=== PATIENT | male | born 1950 | race Two or more races ===

== ENCOUNTER → 2024-08-30 | Outpatient (CLI) | payer OTHER, SELFPAY | END | disposition home or self-care (01) | LOC: SWHD 09:33 | PROVIDERS: PCP Internal Medicine; Referring Provider Internal Medicine; Visit Provider Surgery | DX: T23.221A Burn of second degree of single right finger (nail) except thumb, initial encounter (principal); R60.0 Localized edema; E11.9 Type 2 diabetes mellitus without complications; Z79.84 Long term (current) use of oral hypoglycemic drugs | CPT/HCPCS: 99213; A9270; G0463 ==

== ENCOUNTER → 2024-11-16 | Outpatient (CLI) | payer OTHER, SELFPAY ==
[2024-11-16 11:40] LABS: Basophils % (Auto) 1 % (0-2.5); Eosinophils # (Auto) 0.2 Thou/mm3 (0.0-0.5); Eosinophils % (Auto) 2 % (0-10); Hematocrit 46.6 % (41.0-53.0); Hemoglobin 14.8 g/dL (13.5-16.0); Immature Granulocytes % (Auto) 0 % (0-0); Immature Granulocytes Auto 0.02 Thou/mm3 (0.00-0.00); Lymphocytes # (Auto) 1.7 Thou/mm3 (1.0-4.8); Lymphocytes % (Auto) 20 % (10-50); Mean Corpuscular HGB Conc 31.8 g/dl (31.0-37.0); Mean Corpuscular Hemoglobin 27.7 pg (25.0-35.0); Mean Corpuscular Volume 87 fL (80-100); Monocytes # (Auto) 0.7 Thou/mm3 (0.0-0.8); Monocytes % (Auto) 8 % (0-12); Neutrophils # (Auto) 5.8 Thou/mm3 (1.8-7.7); Neutrophils % (Auto) 69 % (37-80); Nucleated Red Blood Cell % 0 /100 WBC (0); Platelet Count 199 Thou/mm3 (140-440); RDW Standard Deviation 47.2 fL (35.1-43.9); Red Blood Count 5.35 Miln/mm3 (4.50-5.90); White Blood Count 8.4 Thou/mm3 (3.8-10.6)
[2024-11-16 11:47] LABS: Glucose Estimated Average 148 mg/dL (80-131); Hemoglobin A1C 6.8 % Hgb (4.8-6.0)
[2024-11-16 11:50] LABS: B-Type Natriuretic Peptide 192 pg/mL (0-100)
[2024-11-16 11:56] LABS: Vitamin D 25 Hydroxy Total 38.7 ng/mL (7.3-40.2)
[2024-11-16 11:58] LABS: Alanine Aminotransferase 11 U/L (10-49); Albumin, Serum 4.1 gm/dL (3.4-4.8); Albumin/Globulin Ratio 1.5 (1.2-2.2); Alkaline Phosphatase 93 U/L (46-116); Anion Gap 9 (7-16); Aspartate Amino Transferase 15 U/L (0-34); BUN/Creatinine Ratio 24 Ratio (12-20); Bilirubin,Total 2.7 mg/dL (0.3-1.2); Blood Urea Nitrogen 19 mg/dL (9-23); Calcium 9.5 mg/dL (8.3-10.6); Calcium (Corrected) 9.5 mg/dL (8.5-10.1); Chloride 98 mMol/L (98-107); Cholesterol 87 mg/dL (132-200); Creatinine (Component) 0.8 mg/dL (0.6-1.3); Free T4 (Free Thyroxine) 1.27 ng/dL (0.89-1.76); Globulin 2.7 gm/dL (2.3-3.5); Glucose 111 mg/dL (74-106); HDL Cholesterol 29 mg/dL (40-60); LDL Cholesterol,Calculated 46 mg/dL (0-130); Osmolality,Calculated 284 (275-295); Potassium 4.3 mMol/L (3.4-5.1); Sodium 141 mMol/L (136-145); Thyroid Stimulating Hormone 3.92 uIU/mL (0.55-4.78); Total Protein 6.8 gm/dL (5.7-8.2); Triglycerides 59 mg/dL (30-150); eGFR > 60 See Note
== END | disposition home or self-care (01) ==
LOC: COPL 10:09
PROVIDERS: PCP Internal Medicine; Referring Provider Internal Medicine; Visit Provider Internal Medicine
DX: Z00.00 Encounter for general adult medical examination without abnormal findings (principal); E11.9 Type 2 diabetes mellitus without complications; E55.9 Vitamin D deficiency, unspecified; E78.2 Mixed hyperlipidemia; E03.9 Hypothyroidism, unspecified
CPT/HCPCS: 36415; 80053; 80061; 82306; 83036; 83880; 84439; 84443; 85025

== ENCOUNTER 2025-01-22 17:40 | Emergency (ER) | payer OTHER, SELFPAY ==
[2025-01-22 17:42] VITALS: BMI 36.3
--- NOTE | 2025-01-22 19:02 | PD.EDRME ---
Rapid Medical Screening Exam RME Arrival date/time: 01/22/25 17:40 Chief Complaint: Skin/Abscess/Foreign Body Time Seen by Provider: 01/22/25 18:47 Vital signs: Vital Signs Temperature 98.3 F 01/22/25 19:04 Pulse Rate 83 01/22/25 19:04 Respiratory Rate 18 01/22/25 19:04 Blood Pressure 170/82 H 01/22/25 19:04 Pulse Oximetry (%) 96 01/22/25 19:04 Oxygen Delivery Method Room Air 01/22/25 19:04 RME Narrative: LLE pain, redness, swelling x2 days. No injury or open wound.
[2025-01-22 19:04] VITALS: BP 170/82; PULSE 83; RESP 18; TEMP 36.8; O2SAT 96
--- NOTE | 2025-01-22 19:23 | XR_ITS ---
Examination: Venous duplex lower extremity sonogram, bilateral. Date and time of exam: January 22, 2025 1938 hours INDICATIONS: Bilateral leg swelling beginning 3 days ago with left leg redness Technique: Multiple sonographic images of the deep venous system have been obtained. B-mode/2-D grayscale imaging of vascular structures and Doppler spectral analysis (waveforms) and color performed Both legs are examined. Findings: Deep venous systems do not demonstrate abnormal echogenicity. All visualized deep veins exhibit compressibility. All visualized deep veins exhibit augmentation. Impression: Negative for deep vein thrombosis
[2025-01-22 19:28] LABS: Basophils % (Auto) 0 % (0-2.5); Eosinophils # (Auto) 0.2 Thou/mm3 (0.0-0.5); Eosinophils % (Auto) 3 % (0-10); Hematocrit 43.9 % (41.0-53.0); Hemoglobin 13.9 g/dL (13.5-16.0); Immature Granulocytes % (Auto) 0 % (0-0); Immature Granulocytes Auto 0.02 Thou/mm3 (0.00-0.00); Lymphocytes # (Auto) 1.2 Thou/mm3 (1.0-4.8); Lymphocytes % (Auto) 16 % (10-50); Mean Corpuscular HGB Conc 31.7 g/dl (31.0-37.0); Mean Corpuscular Hemoglobin 28.5 pg (25.0-35.0); Mean Corpuscular Volume 90 fL (80-100); Monocytes # (Auto) 0.6 Thou/mm3 (0.0-0.8); Monocytes % (Auto) 9 % (0-12); Neutrophils # (Auto) 5.2 Thou/mm3 (1.8-7.7); Neutrophils % (Auto) 72 % (37-80); Nucleated Red Blood Cell % 0 /100 WBC (0); Platelet Count 165 Thou/mm3 (140-440); RDW Standard Deviation 48.6 fL (35.1-43.9); Red Blood Count 4.87 Miln/mm3 (4.50-5.90); White Blood Count 7.3 Thou/mm3 (3.8-10.6)
[2025-01-22 19:41] LABS: Sed Rate (ESR) 22 mm/hr (0-20)
[2025-01-22 20:03] LABS: INR 1.1 (0.9-1.3); Partial Thromboplastin Time 29.7 Seconds (22.0-36.0); Prothrombin Time 12.4 Seconds (9.0-12.2)
[2025-01-22 20:29] LABS: Albumin, Serum 4.3 gm/dL (3.4-4.8); Albumin/Globulin Ratio 1.5 (1.2-2.2); Alkaline Phosphatase 103 U/L (46-116); Anion Gap 7 (7-16); Aspartate Amino Transferase 12 U/L (0-34); BUN/Creatinine Ratio 21 Ratio (12-20); Blood Urea Nitrogen 19 mg/dL (9-23); C-Reactive Protein 1.2 mg/dL (0.0-0.9); Calcium 9.1 mg/dL (8.3-10.6); Calcium (Corrected) 9.1 mg/dL (8.5-10.1); Carbon Dioxide 32.4 mMol/L (20.0-31.0); Chloride 105 mMol/L (98-107); Creatinine (Component) 0.9 mg/dL (0.6-1.3); Estimated Creatinine Clearance 87.3 mL/min (>60); Globulin 2.8 gm/dL (2.3-3.5); Glucose 165 mg/dL (74-106); Osmolality,Calculated 293 (275-295); Potassium 3.9 mMol/L (3.4-5.1); Sodium 144 mMol/L (136-145); Total Protein 7.1 gm/dL (5.7-8.2); eGFR > 60 See Note
[2025-01-22 20:39] LABS: Alanine Aminotransferase < 7 U/L (10-49)
[2025-01-22 21:42] VITALS: BP 173/108; PULSE 75; RESP 20; TEMP 36.9; O2SAT 93
--- NOTE | 2025-01-22 21:53 | PD.EDSKIN ---
ED Skin Abcess FB-RME/HPI General Chief complaint: Skin/Abscess/Foreign Body Stated complaint: LLE SWELLING WITH REDNESS Time Seen by Provider: 01/22/25 18:47 Arrival date/time: 01/22/25 17:40 RME / HPI RME / HPI narrative: LLE pain, redness, swelling x2 days. No injury or open wound. ------- Dr. Aranda's Main ED Evaluation: 74yo male with a history of DM, HTN, aFib presents to the ED for a chief complaint of LLE pain, redness, and swelling x 2 days. Patient states he was walking up a platform when he felt a sharp pain to the back of his left calf. Denies any trauma or injuries. Patient states he has since developed his LLE symptoms and they have persisted, so he came in for evaluation. Patient denies any fever, chills, N/V, chest pain, shortness of breath or any other associated symptoms. No known allergies. Related Data Home Medications ?Medication ?Instructions ?Recorded ?Confirmed amlodipine 5 mg tablet 5 mg PO BID 03/09/23 10/01/23 apixaban 2.5 mg tablet (Eliquis) 2.5 mg PO DAILY 03/09/23 10/01/23 losartan 50 mg-hydrochlorothiazide 1 tab PO DAILY 03/09/23 10/01/23 12.5 mg tablet metformin 500 mg tablet 500 mg PO DAILY 03/09/23 10/01/23 metoprolol tartrate 100 mg tablet 200 mg PO BID 03/09/23 10/01/23 aspirin 81 mg tablet,delayed 81 mg PO QDAY 08/17/23 10/01/23 release potassium chloride 8 mEq 8 meq PO QDAY 08/17/23 10/01/23 capsule,extended release Previous Rx's ?Medication ?Instructions ?Recorded atorvastatin 40 mg tablet 40 mg PO HS #30 tabs 03/17/23 Allergies Allergy/AdvReac Type Severity Reaction Status Date / Time No Known Allergies Allergy Verified 10/01/23 10:20 Review of Systems Review of Systems Systems Reviewed: All systems reviewed, normal except as documented Past Medical History Past Medical History CARDIAC: Positive Atrial Fibrillation and Hypertension; Negative Cardiac Disorders or Congestive Heart Failure RESPIRATORY: Negative Chronic Obstructive Pulmonary Disease (COPD) or Asthma GENITOURINARY: Negative Renal Disease ENDOCRINE: Positive Diabetes Mellitus Type 2; Negative Diabetes Mellitus Type 1 HEMATOLOGIC: Negative Sickle Cell Disease Social History SMOKING STATUS: Never smoker SUBSTANCE USE: does not use ED Exam Narrative Physical exam: General: Non-toxic, well appearing, in no acute distress, and appears stated age and well developed and well nourished. Vital signs: Normal. Head: Normocephalic and atraumatic. Eyes: Aproptotic, extraocular movements intact. Nose: Nares without evidence of rhinorrhea. Neck: Supple without menigismus without lympadenopathy. Heart: Regular rate and rhythm without murmur, gallops, or rubs. Lungs: Clear to auscultation without wheezing, rales, or rhonchi. Abdomen: Soft, non distended. No tenderness. Normal bowel sounds. Negative Christy sign and no McBurney?s point tenderness. No guarding, rebound, or rovsing. Back: No costovertebral angle tenderness. Neurological: Alert and oriented to person, place, time. Gait normal. Extremities: no cyanosis or edema. Circumferential erythema to the LLE from the ankle to just below the knee. Skin: no rashes, ecchymosis, or lesions. Course Quality Measures none Orders Category Date Time Status US venous duplex LE BI Stat Exams 01/22/25 19:23 Completed Blood Culture (Lab) Stat Lab 01/22/25 19:14 Received CBC Stat Lab 01/22/25 19:19 Completed CMP [Comprehensive Metabolic Panel] Stat Lab 01/22/25 19:19 Completed CRP [C-Reactive Protein] Stat Lab 01/22/25 19:19 Completed ESR [Sed Rate (ESR)] Stat Lab 01/22/25 19:19 Completed Partial Thromboplastin Time Stat Lab 01/22/25 19:19 Completed Prothrombin Time with INR Stat Lab 01/22/25 19:19 Completed Vancomycin Inj 1,000 mg Med 01/22/25 23:37 Discontinued Sodium Chloride 0.9% 250 ml [Ns] 250 ml IV X1 Vancomycin/Ns 1 gm Ivpb 200 ml Med 01/22/25 23:45 Discontinued IV Q100M cefTRIAXone/D5w 1gm IV premix [Rocephin/D5w 1gm IV Med 01/22/25 23:37 Discontinued premix] 1 gm in 50 ml IV X1 Vital Signs Vital signs: Vital Signs Temperature 98.3 F 01/22/25 19:04 Pulse Rate 83 01/22/25 19:04 Respiratory Rate 18 01/22/25 19:04 Blood Pressure 170/82 H 01/22/25 19:04 Pulse Oximetry (%) 96 01/22/25 19:04 Oxygen Delivery Method Room Air 01/22/25 19:04 Skin / Abscess / Foreign Body MDM Narrative MDM Narrative:: Scribe Attestation: 01/22/25 - Nely Pedro, am scribing for and in the presence of Dr. Aranda. Patient does not meet sepsis criteria. US of the LLE is negative for DVT. Impression is cellulitis. Patient to receive a dose of Rocephin and Vancomycin here in the ED, then can be discharged home. I will send a prescription for Clindamycin to his pharmacy. Patient data External records reviewed:: [facility] previous records (Per chart review, patient was admitted here on 03/09/23 for acute alteration in mental status.) Clinical information provided by:: patient and spouse Social determinants that could affect healthcare access:: none Patient has the following chronic illnesses:: DM, HTN, aFib How is presenting disease/condition affected by chronic disease/condition?: uneffected by Evaluation data The following diagnostics were reviewed and interpreted by me:: lab results and radiology exam(s) Lab and/or radiology exams considered but not ordered:: none Interpretation Summary: CBC is normal, Glucose is 165, CRP is 1.2, according to my interpretation. ------ [facility] Report Signed Patient: DESEAN MCCORMACK [facility]. Record#: [id number] Birthdate: 1950 Age/Sex: 74 / M Location: [facility] Attending Dr: Ordering Physician: Sanjay Malone PA-C Date of Service: 01/22/25 Procedure(s): US venous duplex LE BI Accession Number(s): [id number] cc: Rodrigue Oneal MD; NO PRIMARY/FAMILY,PHYSICIAN; Sanjay Malone PA-C~ Examination: Venous duplex lower extremity sonogram, bilateral. Date and time of exam: January 22, 2025 1938 hours INDICATIONS: Bilateral leg swelling beginning 3 days ago with left leg redness Technique: Multiple sonographic images of the deep venous system have been obtained. B-mode/2-D grayscale imaging of vascular structures and Doppler spectral analysis (waveforms) and color performed Both legs are examined. Findings: Deep venous systems do not demonstrate abnormal echogenicity. All visualized deep veins exhibit compressibility. All visualized deep veins exhibit augmentation. Impression: Negative for deep vein thrombosis Dictated By: Rodrigue Oneal MD Signed By: <Electronically signed by Rodrigue Oneal MD in [place]> 01/22/252047 Medications / Prescriptions Medications or Prescriptions considered but not ordered:: none Medication administrations:: Medication Administration History Discontinued Medications Ceftriaxone Sodium/Dextrose (Rocephin/D5w 1gm Iv Premix) 1 gm in 50 mls @ 100 mls/hr IV X1 ONE Stop: 01/23/25 00:06 Last Infusion: 01/23/25 00:31 Dose: Infused Documented By: Admin: 01/23/25 00:01 Dose: 100 mls/hr Documented By: EF Vancomycin HCl 1,000 mg/ (Sodium Chloride) 250 mls @ 150 mls/hr IV X1 ONE Stop: 01/23/25 01:16 Vancomycin/Sodium Chloride (Vancomycin/Ns 1 Gm Ivpb) 200 mls @ 120 mls/hr IV Q100M ONE Stop: 01/23/25 01:24 Last Infusion: 01/23/25 01:42 Dose: Infused Documented By: Admin: 01/23/25 00:01 Dose: 120 mls/hr Documented By: EF see above Consultations Consultation(s) initiated? (list below): No Diagnosis Skin/Abscess Differential Diagnosis: cellulitis and other (abscess, DVT) Most likely diagnosis given after review of the tests above:: see clinical impression below Admission Indicated Admission indicated?: not indicated Admission Request Was there a request for admission?: No Disposition Plan Disposition Plan: Discharge Discharge Attestation Discharge Attestation: The patient and all family members were given an opportunity to ask questions and understood the discharge instructions. Discharge instructions specifically effects, indications for sooner follow up or return to the emergency department, and the expected course of current diagnosis. Patient condition: Stable Discharge Plan Plan Patient Disposition: HOME (Self Care) Patient condition on transfer: Stable Prescriptions/Referrals Prescriptions/Med Rec: No Action potassium chloride 8 mEq capsule, extended release 8 meq PO QDAY aspirin 81 mg tablet,delayed release (DR/EC) 81 mg PO QDAY metformin 500 mg tablet 500 mg PO DAILY Patient Comments: TAKE 1 TABLET BY MOUTH ONCE DAILY metoprolol tartrate 100 mg tablet 200 mg PO BID Patient Comments: TAKE 2 TABLETS BY MOUTH TWICE DAILY amlodipine 5 mg tablet 5 mg PO BID Patient Comments: TAKE 1 TABLET BY MOUTH TWICE DAILY (DISCONTINUE AMLODIPINE 2.5MG) losartan-hydrochlorothiazide 50-12.5 mg tablet 1 tab PO DAILY Patient Comments: TAKE 1 TABLET BY MOUTH ONCE DAILY Eliquis 2.5 mg tablet 2.5 mg PO DAILY Patient Comments: TAKE 1 TABLET BY MOUTH TWICE DAILY atorvastatin 40 mg tablet 40 mg PO HS Qty: 30 0RF Referrals: No Primary/Family,Physician [Primary Care Provider] - In 1 week Problem List Clinical Impression: Type 2 diabetes mellitus, Cellulitis Patient/Caregiver Discharge Instructions Education Materials: ED Cellulitis Additional Instructions: Take your medication as prescribed. Please follow-up with your primary care provider within the next 48 hours or return here to the ED for recheck. Return to the ED for any worsening symptoms, such as fever, shortness of breath, or as needed. Print Language: Dominican Stand Alone Forms: Samantha Award Info., Patient Portal Info Letter
[2025-01-23] MEDS: VANCOMYCIN/NS 1 GM IVPB 200 ML IV (00:01)
[2025-01-23] MEDS: cefTRIAXone/D5w 1gm IV premix 1 GM/50 ML BAG IV (00:01)
[2025-01-23 00:13] VITALS: BP 169/94; PULSE 63; RESP 18; O2SAT 96
[2025-01-23 02:00] VITALS: BP 161/97; PULSE 75; RESP 18; O2SAT 95
== END 2025-01-23 02:01 | disposition home or self-care (01) ==
PROVIDERS: Physician Assistant; Emergency Provider Emergency Medicine
DX: L03.116 Cellulitis of left lower limb (principal); E11.9 Type 2 diabetes mellitus without complications; M79.89 Other specified soft tissue disorders; Z79.84 Long term (current) use of oral hypoglycemic drugs
CPT/HCPCS: 36415; 80053; 85025; 85610; 85652; 85730; 86140; 87040; 93970; 96365; 96366; 96368; 99284; J0696; J3370

== ENCOUNTER → 2025-03-06 | Outpatient (CLI) | payer OTHER, SELFPAY ==
--- NOTE | 2025-03-06 | XR_ITS ---
Examination: PA lateral chest 2 views TECHNIQUE: Upright PA lateral chest 2 views Date and time: March 06, 2025 1337 hours Comparison May 22, 2024 INDICATIONS: Shortness of breath beginning 2 weeks ago. FINDINGS: Mild accentuation basilar bronchovascular markings Mild prominence left ventricle. No lobar pneumonia or pulmonary edema IMPRESSION: Mild basilar bronchitis pattern
[2025-03-06 12:39] LABS: Basophils # (Auto) 0.1 Thou/mm3 (0.0-0.2); Basophils % (Auto) 1 % (0-2.5); Eosinophils # (Auto) 0.1 Thou/mm3 (0.0-0.5); Eosinophils % (Auto) 1 % (0-10); Hematocrit 43.9 % (41.0-53.0); Hemoglobin 13.8 g/dL (13.5-16.0); Immature Granulocytes % (Auto) 0 % (0-0); Immature Granulocytes Auto 0.01 Thou/mm3 (0.00-0.00); Lymphocytes # (Auto) 1.3 Thou/mm3 (1.0-4.8); Lymphocytes % (Auto) 16 % (10-50); Mean Corpuscular HGB Conc 31.4 g/dl (31.0-37.0); Mean Corpuscular Hemoglobin 27.6 pg (25.0-35.0); Mean Corpuscular Volume 88 fL (80-100); Monocytes # (Auto) 0.7 Thou/mm3 (0.0-0.8); Monocytes % (Auto) 9 % (0-12); Neutrophils # (Auto) 6.1 Thou/mm3 (1.8-7.7); Neutrophils % (Auto) 75 % (37-80); Nucleated Red Blood Cell % 0 /100 WBC (0); Platelet Count 204 Thou/mm3 (140-440); RDW Standard Deviation 50.4 fL (35.1-43.9); White Blood Count 8.1 Thou/mm3 (3.8-10.6)
[2025-03-06 12:46] LABS: Glucose Estimated Average 143 mg/dL (80-131); Hemoglobin A1C 6.6 % Hgb (4.8-6.0)
[2025-03-06 13:03] LABS: Anion Gap 8 (7-16); BUN/Creatinine Ratio 20 Ratio (12-20); Blood Urea Nitrogen 20 mg/dL (9-23); Calcium 9.2 mg/dL (8.3-10.6); Calcium (Corrected) 9.2 mg/dL (8.5-10.1); Carbon Dioxide 34.7 mMol/L (20.0-31.0); Chloride 100 mMol/L (98-107); Glucose 123 mg/dL (74-106); Osmolality,Calculated 288 (275-295); Phosphorous 3.1 mg/dL (2.4-5.1); Potassium 4.3 mMol/L (3.4-5.1); Sodium 143 mMol/L (136-145); eGFR > 60 See Note
== END | disposition home or self-care (01) ==
PROVIDERS: PCP Internal Medicine; Referring Provider Internal Medicine; Visit Provider Radiology Diagnostic Radiology
DX: R06.00 Dyspnea, unspecified (principal); I10 Essential (primary) hypertension
CPT/HCPCS: 36415; 71046; 80069; 83036; 85025

== ENCOUNTER 2025-03-08 09:34 | Emergency (ER) | payer OTHER, SELFPAY ==
[2025-03-08 09:35] VITALS: BMI 36.3
[2025-03-08 09:48] VITALS: BP 168/95; PULSE 84; RESP 18; TEMP 36.8; O2SAT 89
--- NOTE | 2025-03-08 09:59 | PD.EDADULT ---
ED General RME/HPI General Chief complaint: Fall Stated complaint: FALL/ HIT BACK OF HEAD X1DAY Time Seen by Provider: 03/08/25 09:46 Arrival date/time: 03/08/25 09:34 Limitations: no limitations RME / HPI RME / HPI narrative: DR. KIRKPATRICK MAIN ED EVALUATION: 74 year old male presents to the Emergency Department with complaint of falling backwards yesterday since 5 PM. Patient was getting in a truck, fell backwards, and hit the back of his head. He states he does not have any complaints and denied any pain. Related Data Home Medications ?Medication ?Instructions ?Recorded ?Confirmed amlodipine 5 mg tablet 5 mg PO BID 03/09/23 10/01/23 apixaban 2.5 mg tablet (Eliquis) 2.5 mg PO DAILY 03/09/23 10/01/23 losartan 50 mg-hydrochlorothiazide 1 tab PO DAILY 03/09/23 10/01/23 12.5 mg tablet metformin 500 mg tablet 500 mg PO DAILY 03/09/23 10/01/23 metoprolol tartrate 100 mg tablet 200 mg PO BID 03/09/23 10/01/23 aspirin 81 mg tablet,delayed 81 mg PO QDAY 08/17/23 10/01/23 release potassium chloride 8 mEq 8 meq PO QDAY 08/17/23 10/01/23 capsule,extended release Previous Rx's ?Medication ?Instructions ?Recorded atorvastatin 40 mg tablet 40 mg PO HS #30 tabs 03/17/23 Allergies Allergy/AdvReac Type Severity Reaction Status Date / Time No Known Allergies Allergy Verified 03/08/25 09:37 Review of Systems Review of Systems Systems Reviewed: All systems reviewed, normal except as documented Narrative Review of Systems: GEN: No fever, no chills, no weight loss EYES: No discharge, no visual changes, no pain HEENT: No ear pain, no congestion, no sore throat PULM: No shortness of breath, no cough, no congestion CV: No chest pain, no dyspnea on exertion, no palpitations GI: No nausea, no vomiting, no diarrhea, no pain, no constipation : No frequency, no urgency and no dysuria MUSC/SKEL: No joint pain, no back pain SKIN: No rash PSYCH: No hallucinations, no depression HEME/LYMPH: No easy bleeding or bruising tendencies NEURO: No weakness, no headache Past Medical History Past Medical History CARDIAC: Positive Atrial Fibrillation and Hypertension ENDOCRINE: Positive Diabetes Mellitus Type 2 Social History SMOKING STATUS: Never smoker SUBSTANCE USE: does not use ALCOHOL: Never ED Exam General Limitations: Present no limitations General appearance: Present alert and in no apparent distress Head Head exam: Present atraumatic, normocephalic and normal inspection Eye Eye exam: Present normal appearance, PERRL and EOMI ENT ENT exam: Present normal exam, normal oropharynx and mucous membranes moist Neck Neck exam: Present normal inspection, full ROM and trachea midline Chest Chest inspection: Present normal inspection and symmetric chest wall rise Respiratory Respiratory exam: Present normal lung sounds bilaterally Cardiovascular Cardiovascular exam: Present regular rate, normal rhythm and normal heart sounds Abdominal Exam Abdominal exam: Present soft and normal bowel sounds Extremities Exam Extremities exam: Present normal inspection and full ROM Back Exam Back exam: Present normal inspection and full ROM Neurological Exam Neurological exam: Present alert, oriented X3 and CN II-XII intact Psychiatric Psychiatric exam: Present normal affect and normal mood Skin Skin exam: Present warm, dry, intact and normal color Course Quality Measures none Orders Category Date Time Status Discharge Routine Discharge 03/08/25 10:12 Active TET,DIP/PERT AC (Adult)-Tdap [Boostrix Adult (Tdap) Med 03/08/25 10:11 Discontinued Vacc] 0.5 ml IMI .ONCE ONE Vital Signs Vital signs: Vital Signs Temperature 98.2 F 03/08/25 09:48 Pulse Rate 84 03/08/25 09:48 Respiratory Rate 18 03/08/25 09:48 Blood Pressure 168/95 H 03/08/25 09:48 Pulse Oximetry (%) 89 L 03/08/25 09:48 Oxygen Delivery Method Room Air 03/08/25 09:48 Discharge Plan Plan Patient Disposition: HOME (Self Care) Discharge Disposition comment: f Patient condition on transfer: Stable Prescriptions/Referrals Prescriptions/Med Rec: No Action potassium chloride 8 mEq capsule, extended release 8 meq PO QDAY aspirin 81 mg tablet,delayed release (DR/EC) 81 mg PO QDAY metformin 500 mg tablet 500 mg PO DAILY Patient Comments: TAKE 1 TABLET BY MOUTH ONCE DAILY metoprolol tartrate 100 mg tablet 200 mg PO BID Patient Comments: TAKE 2 TABLETS BY MOUTH TWICE DAILY amlodipine 5 mg tablet 5 mg PO BID Patient Comments: TAKE 1 TABLET BY MOUTH TWICE DAILY (DISCONTINUE AMLODIPINE 2.5MG) losartan-hydrochlorothiazide 50-12.5 mg tablet 1 tab PO DAILY Patient Comments: TAKE 1 TABLET BY MOUTH ONCE DAILY Eliquis 2.5 mg tablet 2.5 mg PO DAILY Patient Comments: TAKE 1 TABLET BY MOUTH TWICE DAILY atorvastatin 40 mg tablet 40 mg PO HS Qty: 30 0RF Referrals: Bert Echeverria MD [Primary Care Provider] - In 1 week Problem List Clinical Impression: Fall, Laceration of scalp Patient/Caregiver Discharge Instructions Discharge Activity: activity as tolerated Print Language: Chadian Stand Alone Forms: Samantha Award Info., Patient Portal Info Letter Discharge Order Discharge Orders: Discharge (Routine); Ordered 03/08/25 Ordered By: Cam Kirkpatrick [facility] Narrative MDM hospital course: I, Leigh Delarosa, am scribing for and in the presence of Dr. Kirkpatrick. Clinical Information Provided by patient Medical Records Reviewed [facility] Meds/Rx Considered, not Ordered None Labs/Rad/Tests considered, not Ordered None Medication Administration(s) Medication Administration History Discontinued Medications Diphtheria/Tetanus/Acell Pertussis (Diphth,Pertuss(Acell),Tet Vac 0.5 Ml Syr- Adult) 0.5 ml IMi .ONCE ONE Stop: 03/08/25 10:12
[2025-03-08] MEDS: DIPHTH,PERTUSS(ACELL),TET VAC 0.5 ML SYR- ADULT IMi (10:44)
[2025-03-08 10:52] VITALS: BP 138/78; PULSE 77; RESP 18; TEMP 36.7; O2SAT 98
== END 2025-03-08 10:52 | disposition home or self-care (01) ==
PROVIDERS: Emergency Provider Emergency Medicine; PCP Internal Medicine
DX: S01.01XA Laceration without foreign body of scalp, initial encounter (principal); W19.XXXA Unspecified fall, initial encounter; Z23 Encounter for immunization
CPT/HCPCS: 90471; 90715; 99282

== ENCOUNTER 2025-04-04 12:54 | Inpatient (IN) | payer OTHER, MEDICARE, SELFPAY ==
[2025-04-04] VITALS (51 sets, daily range): BP systolic 105–219; BP diastolic 62–135; PULSE 56–89; RESP 9–60; TEMP 36.5–37; O2SAT 63–100; BMI 36.3
--- NOTE | 2025-04-04 13:19 | PD.EDADULT ---
ED General RME/HPI General Chief complaint: Shortness of Breath/Dyspnea Stated complaint: SpO2 74%, SOB Time Seen by Provider: 04/04/25 12:57 Arrival date/time: 04/04/25 12:54 RME / HPI RME / HPI narrative: DR. HENRY MAIN ED EVALUATION: 74 year old male presents to the Emergency Department accompanied by his with complaint of shortness of breath since last week, worse since last night. Associated symptoms include bilateral leg swelling. He states he uses a walker to ambulate and mentions that he has walked less due to shortness of breath. PMHx: Atrial fibrillation on Eliquis. Social Hx: No tobacco, alcohol, or substance use. PCP: Dr. Echeverria Related Data Home Medications ?Medication ?Instructions ?Recorded ?Confirmed amlodipine 5 mg tablet 5 mg PO BID 03/09/23 10/01/23 apixaban 2.5 mg tablet (Eliquis) 2.5 mg PO DAILY 03/09/23 10/01/23 losartan 50 mg-hydrochlorothiazide 1 tab PO DAILY 03/09/23 10/01/23 12.5 mg tablet metformin 500 mg tablet 500 mg PO DAILY 03/09/23 10/01/23 metoprolol tartrate 100 mg tablet 200 mg PO BID 03/09/23 10/01/23 aspirin 81 mg tablet,delayed 81 mg PO QDAY 08/17/23 10/01/23 release potassium chloride 8 mEq 8 meq PO QDAY 08/17/23 10/01/23 capsule,extended release Previous Rx's ?Medication ?Instructions ?Recorded atorvastatin 40 mg tablet 40 mg PO HS #30 tabs 03/17/23 Allergies Allergy/AdvReac Type Severity Reaction Status Date / Time No Known Allergies Allergy Verified 04/04/25 12:58 Review of Systems Review of Systems Systems Reviewed: All systems reviewed, normal except as documented Past Medical History Past Medical History CARDIAC: Positive Atrial Fibrillation and Hypertension ENDOCRINE: Positive Diabetes Mellitus Type 2 Social History SMOKING STATUS: Never smoker SUBSTANCE USE: does not use ALCOHOL: Never ED Exam Narrative Physical exam: Physical Exam: General: The vital signs were reviewed. The patient is non-toxic, in no apparent distress and appears healthy with a patent airway, no respiratory distress and has no apparent circulatory problems. Head & Scalp: Normocephalic, atraumatic. Face: Appears normal and is without lesions, deformity. Ears: Left external pinna appears normal. Right external pinna appears normal. Eyes: The sclera is anicteric. No obvious photophobia. The Left and Right Orbit/Lid/Conjunctiva appears normal without swelling, discoloration or injection. Nose: The nose is without deformity, discharge or tenderness; Throat: Appears normal. The mucous membranes are pink and moist without exudates, redness or mass seen. The tongue appears normal. Neck: The neck is supple and no apparent mass or adenopathy. Chest: The chest wall is normal in size and symmetry and has no chest wall tenderness or crepitus. The patient displays normal ventilator effort without retractions, accessory muscle use and has adequate air movement bilaterally with no wheezes and no rales. Cardiovascular: Regular rate and rhythm; No murmurs, rubs, or gallops; Gastrointestinal: The abdomen appears normal. No obvious hernias or mass. The abdomen is soft and benign, non-distended, with no pain, no guarding and no rebound tenderness. Bowel sounds are present and normal sounding. No CVA tenderness. Genitourinary: Back/Spine: Nontender normal inspection Extremities/Musculoskeletal/lymphatic: The bilateral upper and lower extremities are warm. Bilateral lower extremities have 4+ pitting edema worse on the left with some breakdown of skin or scabbing along the left lower extremity. There is bilateral increased hyperpigmentation There is no evidence of arterial insufficiency. There is no evidence of venous insufficiency/edema of the upper extremities.. The patient spontaneously moves bilateral upper and lower extremities with no pain and no limitation of movement. There is no apparent, injury or trauma. Skin: The skin is warm, dry and intact. No rashes. No petechia. No purpura. No abnormal bruising. The color is appropriate with no cyanosis. Mental status/Psychiatric: Mental status is appropriate for age. The patient has no apparent delusions, visual hallucinations, no apparent audible hallucinations. The patient has no apparent suicidal thoughts/ideation and no apparent homicidal thoughts/ideation. Neurological: The patient is awake, alert, interactive, cordial, cooperative and is oriented to name and situation. The patient follows commands and answers historical question with no impairment. There is no visual disturbance apparent. The pupils are equal and reactive bilaterally with normal eye movements and no diplopia The bilateral upper and lower extremities have normal strength, normal range of motion and normal functioning. The gait, station and balance not tested for due to acuity Course Quality Measures none Orders Category Date Time Status EKG (ED ONLY) *Do not use* NOW Care 04/04/25 13:31 Completed EKG (ED Only) Stat Exams 04/04/25 13:31 Draft XR chest 1V portable Stat Exams 04/04/25 13:31 Completed ABG [Arterial Blood Gas] Stat Lab 04/04/25 16:55 Ordered B-Type Natriuretic Peptide Stat Lab 04/04/25 13:42 Completed Blood Culture (Lab) Stat Lab 04/04/25 13:37 Received CBC Stat Lab 04/04/25 13:42 Completed Comprehensive Metabolic Panel Stat Lab 04/04/25 13:42 Completed D-Dimer Stat Lab 04/04/25 13:42 Completed Drug Screen,Urine Stat Lab 04/04/25 16:23 Received Lactate (Lactic Acid) Stat Lab 04/04/25 13:42 Completed Lipase Stat Lab 04/04/25 13:42 Completed Magnesium Stat Lab 04/04/25 13:42 Completed Troponin I Stat Lab 04/04/25 13:42 Completed Urinalysis Stat Lab 04/04/25 16:23 Received Urinalysis, C/S if Indicated Stat Lab 04/04/25 16:23 Received Venous Blood Gas Stat Lab 04/04/25 13:42 Completed Vital Signs Vital signs: Vital Signs Temperature 98.5 F 04/04/25 13:10 Pulse Rate 75 04/04/25 13:10 Respiratory Rate 22 H 04/04/25 13:10 Blood Pressure 130/76 04/04/25 13:10 Pulse Oximetry (%) 63 L 04/04/25 13:10 Oxygen Delivery Method Room Air 04/04/25 13:10 Discharge Plan Plan Patient Disposition: Admit Acute Care w/in Hospital Discharge Disposition comment: Hospitalist to admit Prescriptions/Referrals Prescriptions/Med Rec: No Action potassium chloride 8 mEq capsule, extended release 8 meq PO QDAY aspirin 81 mg tablet,delayed release (DR/EC) 81 mg PO QDAY metformin 500 mg tablet 500 mg PO DAILY Patient Comments: TAKE 1 TABLET BY MOUTH ONCE DAILY metoprolol tartrate 100 mg tablet 200 mg PO BID Patient Comments: TAKE 2 TABLETS BY MOUTH TWICE DAILY amlodipine 5 mg tablet 5 mg PO BID Patient Comments: TAKE 1 TABLET BY MOUTH TWICE DAILY (DISCONTINUE AMLODIPINE 2.5MG) losartan-hydrochlorothiazide 50-12.5 mg tablet 1 tab PO DAILY Patient Comments: TAKE 1 TABLET BY MOUTH ONCE DAILY Eliquis 2.5 mg tablet 2.5 mg PO DAILY Patient Comments: TAKE 1 TABLET BY MOUTH TWICE DAILY atorvastatin 40 mg tablet 40 mg PO HS Qty: 30 0RF Referrals: Bert Echeverria MD [Primary Care Provider] - In 1 week Problem List Clinical Impression: Dyspnea on exertion, Congestive heart failure, History of COPD, Acute prerenal azotemia, Dehydration Patient/Caregiver Discharge Instructions Print Language: German Stand Alone Forms: [facility] Award Info., Patient Portal Info Letter MDM Narrative MDM hospital course: Patient is a 74-year-old who comes in with increasing weakness and inability to walk but mostly with shortness of breath. He has had no fever no sputum production. He is on home oxygen but denies to me having any COPD. He is never seen a senior gis analyst. He complains of bilaterally swollen legs which have gotten worse in recent times. Clinically his O2 sats are in the low 90s with several liters of oxygen. He is in no distress. His lungs are clear there is no wheezing heard. Should be noted that his breath sounds are present but somewhat distant. White count came back at 7.0 hemoglobin 13.3 D-dimer came back at 711 VBG pH is 7.4 a pCO2 of 50 sodium 147 slightly elevated potassium 4.6 chloride 103 CO2 elevated at 37. Anion gap came back at 7 BUN is 29 creatinine 1.2 Lactic acid is 1.3. Troponin is negative BNP is elevated 477. No in the past 7 years the trend is worsening where it has been in the normal 7 years ago and then its in the 200 300 range in the past 3 to 4 years. Urinalysis was ordered but is still pending as of 1600 hrs. Chest x-ray reveals some bilateral fluffy infiltrates seems worse on the left retrocardiac. There is no obvious effusion. Heart slightly enlarged. Patient appears to have shortness of breath is a combination of possible COPD with some mild CO2 retention. BNP that is getting worse and most likely is got some heart failure and maybe has right heart failure. Because he can barely walk and gets winded or short of breath with minimal exertion he should be admitted for further workup. Spoke with the hospitalist and they agreed admit for new onset or newly diagnosed congestive heart failure and workup is worsening prerenal azotemia hyperosmolar state where she is probably dehydrated and consider treating for pneumonia although he is not producing any sputum that is apparent clinically. Given the UA is still pending and the hospitalist will follow-up on this and address it accordingly. Note at 1716 hrs. the UA and UDS are still pending but the hospitalist has admitted and will start treatment for presumed congestive heart failure Leigh Pedro am scribing for and in the presence of Dr. Henry. Clinical Information Provided by patient and spouse Medical Records Reviewed [facility] Meds/Rx Considered, not Ordered None Labs/Rad/Tests considered, not Ordered None Chronic Illness/Social Conditions Add or document further as needed: Atrial fibrillation on Eliquis. EKG EKG Interpretation narrative: My interpretation: EKG performed at 1312 hours, sinus rhythm, rate 70, no STEMI Lab Interpretation Labs: see narrative above Imaging Imaging interpretation: see narrative above Radiology reports / interpretation(s): Procedure(s): XR chest 1V portable Accession Number(s): [id number] cc: Bert Echeverria MD; Mikey Henry MD; Rodrigue Oneal MD~ Examination: AP chest single view Technique one AP portable upright chest single view Date and time: April 04, 2025 1400 hours INDICATIONS: Chest pain today. FINDINGS: Mild opacity both lung bases Mild prominence left ventricle No pulmonary edema Moderate osteopenia IMPRESSION: Bibasilar pneumonia Dictated By: Rodrigue Oneal MD Diagnosis Differential diagnosis: CHF, pneumonia, CAD Most likely dx, and/or detailed dx discussion: [facility] CHF History of COPD Acute prerenal azotemia Dehydration Dispositon Disposition: Admit
--- NOTE | 2025-04-04 13:31 | EKG_ITS ---
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
--- NOTE | 2025-04-04 13:31 | XR_ITS ---
Examination: AP chest single view Technique one AP portable upright chest single view Date and time: April 04, 2025 1400 hours INDICATIONS: Chest pain today. FINDINGS: Mild opacity both lung bases Mild prominence left ventricle No pulmonary edema Moderate osteopenia IMPRESSION: Bibasilar pneumonia
[2025-04-04 13:50] LABS: Lactate (Lactic Acid) 1.3 mMol/L (0.4-2.0)
[2025-04-04 13:51] LABS: Base Excess, Venous 11 (-3-3); O2 Saturation, Venous 93 % (96-97); PCO2, Venous 50 mmHg (36-56); PO2, Venous 82 mmHg (15-58); pH, Venous 7.48 (7.33-7.66)
[2025-04-04 13:56] LABS: Basophils # (Auto) 0.0 Thou/mm3 (0.0-0.2); Basophils % (Auto) 0 % (0-2.5); Eosinophils # (Auto) 0.0 Thou/mm3 (0.0-0.5); Eosinophils % (Auto) 0 % (0-10); Hematocrit 43.5 % (41.0-53.0); Hemoglobin 13.3 g/dL (13.5-16.0); Immature Granulocytes Auto 0.02 Thou/mm3 (0.00-0.00); Lymphocytes # (Auto) 0.8 Thou/mm3 (1.0-4.8); Lymphocytes % (Auto) 11 % (10-50); Mean Corpuscular HGB Conc 30.6 g/dl (31.0-37.0); Mean Corpuscular Hemoglobin 27.6 pg (25.0-35.0); Mean Corpuscular Volume 90 fL (80-100); Monocytes # (Auto) 0.7 Thou/mm3 (0.0-0.8); Monocytes % (Auto) 10 % (0-12); Neutrophils # (Auto) 5.5 Thou/mm3 (1.8-7.7); Neutrophils % (Auto) 78 % (37-80); Nucleated Red Blood Cell # 0.00 Thou/mm3 (0.00-0.00); Nucleated Red Blood Cell % 0 /100 WBC (0); Platelet Count 183 Thou/mm3 (140-440); RDW Standard Deviation 51.6 fL (35.1-43.9); Red Blood Count 4.82 Miln/mm3 (4.50-5.90); White Blood Count 7.0 Thou/mm3 (3.8-10.6)
[2025-04-04 14:24] LABS: Alanine Aminotransferase 8 U/L (10-49); Albumin, Serum 3.9 gm/dL (3.4-4.8); Albumin/Globulin Ratio 1.4 (1.2-2.2); Alkaline Phosphatase 88 U/L (46-116); Anion Gap 7 (7-16); Aspartate Amino Transferase 19 U/L (0-34); BUN/Creatinine Ratio 24 Ratio (12-20); Bilirubin,Total 2.2 mg/dL (0.3-1.2); Blood Urea Nitrogen 29 mg/dL (9-23); Calcium 9.0 mg/dL (8.3-10.6); Calcium (Corrected) 9.1 mg/dL (8.5-10.1); Carbon Dioxide 37.0 mMol/L (20.0-31.0); Chloride 103 mMol/L (98-107); Creatinine (Component) 1.2 mg/dL (0.6-1.3); Estimated Creatinine Clearance 65.5 mL/min (>60); Globulin 2.7 gm/dL (2.3-3.5); Glucose 151 mg/dL (74-106); Lipase 36 U/L (12-53); Magnesium 1.7 mg/dL (1.6-2.6); Osmolality,Calculated 301 (275-295); Potassium 4.6 mMol/L (3.4-5.1); Sodium 147 mMol/L (136-145); Total Protein 6.6 gm/dL (5.7-8.2); Troponin I < 0.020 ng/mL (0.0-0.045); eGFR > 60 See Note
[2025-04-04 14:32] LABS: D-Dimer 711 ng/mL (<600)
[2025-04-04 14:33] LABS: B-Type Natriuretic Peptide 477 pg/mL (0-100)
[2025-04-04 16:43] LABS: Collection Type, Urine Clean Catch
[2025-04-04 17:14] LABS: Bilirubin,Urine Negative (Negative); Blood,Urine 3+ (Negative); Clarity,Urine Turbid (Clear/Hazy); Color,Urine Yellow (Lt Yel-Yel); Glucose, Urine Negative (Negative); Ketones,Urine Negative (Negative); Leukocyte Esterase,Urine Positive (Negative); Nitrite,Urine Negative (Negative); PH,Urine 5.5 (5.0-7.0); Protein,Urine 2+ (Neg - Trace); RBC,Urine 1006 /hpf (0-3); Specific Gravity,Urine 1.024 (1.001-1.035); Squamous Epithelial Cell,Urine 1 /hpf (0-5); Urobilinogen,Urine Negative mg/dL (0.0-1.0); WBC,Urine 100 /hpf (0-5)
[2025-04-04 17:18] LABS: Base Excess 4 (-3-3); HCO3 36 mEq/L (20-26); Inspired O2, VO2 Liters 4 L/min; Inspired Oxygen, FIO2 21 %; O2 Saturation 94 % (91-98); PCO2 107 mmHg (32.0-48.0); PO2 85 mmHg (83-108)
[2025-04-04 17:20] LABS: Amphetamine/Methamp Scrn,U Negative (Negative); Barbiturate Screen,Urine Negative (Negative); Benzodiazepines Screen,Urine Negative (Negative); Benzoylecgonine Screen, Ur Negative (Negative); Fentanyl Screen,Urine Negative (Negative); Opiate Screen,Urine Negative (Negative); THC Screen,Urine Negative (Negative)
[2025-04-04 17:22] LABS: Culture Indicated,Urine Yes
[2025-04-04 17:25] LABS: Allen Test Performed/OK; Puncture Site Left Radial; pH, Arterial 7.14 (7.35-7.45)
--- NOTE | 2025-04-04 18:02 | XR_ITS ---
Examination: CT brain head without contrast. 2-D sagittal coronal reconstructions Date and time of exam:April 04, 2025, 0922 hours Comparison March 09, 2023 INDICATIONS: Diagnosis acute encephalopathy, acute hypoxic respiratory failure, altered mental status CTDI: vol (mGy):54.9 DLP: (mGycm):1159 Technique: Multiple CT axial sections of the brain have been obtained, 5 mm slice thickness. Contrast has not been administered. 2-D sagittal, coronal reconstructions have been obtained Low dose protocols were performed. One or more of the following dose reduction techniques were used; automated exposure control, adjustment of the mA and/or KV according to patient size, use of iterative reconstruction technique. Findings: No significant ventricular enlargement. 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 No mass effect or midline shift Basal cisterns are not remarkable. Fourth ventricle is midline. Cranial vault intact. Impression: No interval acute hemorrhage, mass effect or midline shift Consider brain MRI follow-up to best assess for encephalopathy, anoxic ischemic change
[2025-04-04 18:05] LABS: Creatine Kinase 89 U/L (34-171)
[2025-04-04 18:37] LABS: Base Excess 6 (-3-3); HCO3 39 mEq/L (20-26); Inspired Oxygen, FIO2 60 %; O2 Saturation 92 % (91-98); PCO2 111 mmHg (32.0-48.0); PO2 78 mmHg (83-108)
[2025-04-04 18:38] LABS: Allen Test Performed/OK; Puncture Site Left Radial; pH, Arterial 7.20 (7.35-7.45)
--- NOTE | 2025-04-04 18:38 | ESHP_ITS ---
<Statement entered by Zay Harvey MD - 04/04/25 21:45> I have reviewed the note and agree with the resident's assessment & plan with exceptions as below. I have personally reviewed labs, imaging, home meds/prior records, examined the patient, formulated and discussed management plan with the IM team. Kade is a 74 y/o male with PMHx of non-insulin dependent type II DM, HTN, ?CAD, Chronic Afib (on Eliquis 2.5 mg once a day) who comes for an evaluation of Acute Encephalopathy. He was worked up initially with a VBG and was found to be Alkalotic, however ABG was done which showed pH 7.14, PCO2 of 107. BiPAP was initiated with repeat ABG w/in one hour. Pt's family denies hx of COPD, however, pt does have Trelegy as a home medicine. He also has MOUNIKA/OHS as well, initially using Trelegy machine, however stopped using it and uses 3L of oxygen at night. We will admit this patient, however, pt may need to intubated if biPAP fails with CO2 narcosis, worsening respiratory acidosis and inability to protect airway. Pt could also have new onset CHF as pt did appear to be overloaded from LE and crackles on pulmonary exam in addition to CXR findings. This could be from longstanding COPD or MOUNIKA/OHS leading to Pulmonary HTN and possible R sided HF, however will order echo for furth evaluation. Will put pt on Abx, IV Diuresis, admit to telemetry. Also pt was found to have a previous fall last month with no imaging documented from a head CT, will reorder, however lower suspicion for a bleed/hematoma at this time. Pt was put FULL CODE at this time as he is a poor historian at this time. could not be reached at the time, and family (sisters) did want full treatment for the time. Signed out to night team for concern for possible worsening hemodynamically status and possible upgrade to ICU. #Acute Encephalopathy #Acute on Chronic hypoxic hypercarbic respiratory failure #Chronic A-fib #? New onset CHF #MOUNIKA/OHS #CAP #Respiratory acidosis with inadequate renal compensation #Previous fall Zay Harvey, PGY-2 Internal Medicine Documentation for date of: 04/04/25 HPI History of Present Illness History of present illness: History Limited as pt is poor historian at this time 74-year-old male with past medical history of atrial fibrillation, hypertension, obstructive sleep apnea, type 2 diabetes, asthma, acute CVA (3 years ago) presents to the Emergency Department accompanied by his with complaint of shortness of breath since last week, worse since last night, saturations dropped to the 60s and once the family helped adjust the home oxygen saturations increased to 90%. Associated symptoms include bilateral leg swelling. He states he uses a walker to ambulate and mentions that he has walked less due to shortness of breath. Patient does not have a project manager industrial, his PCP is Dr. Geovany Squires, has never seen a bead cutter. Denies a history of COPD. It was learned that the patient had a trilogy machine, but had it taken away as he was not using it. He uses 3 L of oxygen at at night. ED Course: Pt patient came into the ED with a temperature of 98.5, blood pressure of 130/76, respiratory 22, heart rate of 75, saturating 63%. Patient was worked up was found to have a sodium of 147, potassium 4.6, bicarb 37, BUN/creatinine of 29 and 1 respectively, blood sugar of 151, VBG pH show 7.48, QDI394, PO282, T. bili 2.2, AST ALT 19 and and 8 respectively, lipase 36, BNP 477 and troponin negative x 1. Medicine was consulted for further workup and admission. ABG was ordered due to concern for worsening narcosis and pCO2 was 107, pH was 7.14. EKG showed Afib, rate 70~, QTc 423. Patient was then placed on BiPAP and admitted to the floors. PMHx: As above Surgeries: Appendix, kidney stones (lithotripsy?, Left knee replacements (2001 and 2002), additional arthroscopy in the left knee (2003), additional right knee arthroscopy in the , knee manipulation (2004) Meds: Metoprolol tartrate 100 mg, losartan-hydrochlorothiazide 50?12.5, Eliquis 2.5 mg once a day, metformin 500 mg, potassium chloride, Lipitor 20 mg, alpha Zosyn 10 mg, montelukast 10 mg, aspirin 81 mg, albuterol as needed, trelegy inhaler Allergies: NKDA Family Hx: Limited family history, some siblings have diabetes. Social Hx: Born and raised in [place]. No recent travel. Lives with his . Walks with a walker. Has 3 kids. Smoked when he was in his childhood but has not done so in several years. Has never been a heavy drinker, no history of oral IV drug use. Does not have a project manager industrial. Has never seen a bead cutter. His primary care doctor is Dr. Swartz. Review of Systems Review of Systems Narrative Review of Systems: ROS limited at this time as patient is poor historian Exam Vital Signs Temp Pulse Resp BP Pulse Ox O2 Del Method O2 Flow Rate 97.8 F 67 18 112/77 97 Nasal Cannula 14 04/04/25 18:21 04/04/25 18:21 04/04/25 18:21 04/04/25 18:21 04/04/25 18:21 04/04/25 15:38 04/04/25 17:46 Narrative Exam General: Patient extremely lethargic, on BiPAP Neck: Supple, without lesions, bruits, or adenopathy, thyroid non-enlarged and non-tender Heart: No cardiomegaly or thrills; irregular rate and rhythm, no murmur or gallop Lungs: Clear to auscultation and percussion Abdomen: Bowel sounds normal, no tenderness, organomegaly, masses, or hernia Results: Labs 04/07/25 04:41 04/07/25 04:41 Labs: Short CBC 04/04/25 Range/Units 13:42 WBC 7.0 (3.8-10.6) Thou/mm3 Hgb 13.3 L (13.5-16.0) g/dL Hct 43.5 (41.0-53.0) % Plt Count 183 (140-440) Thou/mm3 BMP 04/04/25 13:42 Sodium 147 H Potassium 4.6 Chloride 103 Carbon Dioxide 37.0 H BUN 29 H Creatinine 1.2 Glucose 151 H Calcium 9.0 Cardiac Enzymes 04/04/25 Range/Units 13:42 Total Creatine Kinase 89 (34-171) U/L Troponin I < 0.020 (0.0-0.045) ng/mL Liver Function 04/04/25 Range/Units 13:42 Total Bilirubin 2.2 H (0.3-1.2) mg/dL AST 19 (0-34) U/L ALT 8 L (10-49) U/L Alkaline Phosphatase 88 (46-116) U/L Albumin 3.9 (3.4-4.8) gm/dL Urine 04/04/25 Range/Units 16:23 Urine Color Yellow (Lt Yel-Yel) Urine Clarity Turbid A (Clear/Hazy) Urine pH 5.5 (5.0-7.0) Ur Specific [place] 1.024 (1.001-1.035) Urine Protein 2+ A (Neg - Trace) Urine Glucose (UA) Negative (Negative) ABG Interpretation ABG results: 04/04/25 04/04/25 13:42 17:07 ABG pH 7.14 L* ABG pCO2 107 H* ABG pO2 85 ABG HCO3 36 H ABG O2 Saturation 94 ABG Base Excess 4 H VBG pH 7.48 VBG pCO2 50 VBG pO2 82 H VBG Base Excess 11 H Quality Measures Quality Measures none Advance care planning discussed with:: patient Medications Home Medications and Allergies Home Medications ?Medication ?Instructions ?Recorded ?Confirmed ?Type apixaban 2.5 mg tablet (Eliquis) 2.5 mg PO DAILY 03/0904/05/25 History losartan 50 mg-hydrochlorothiazide 1 tab PO DAILY 02/2504/05/25 History 12.5 mg tablet metformin 500 mg tablet 500 mg PO DAILY 03/09/2307/21 History metoprolol tartrate 100 mg tablet 200 mg PO BID 04/05/25 History aspirin 81 mg tablet,delayed 81 mg PO QDAY 08/17/23 History release potassium chloride 8 mEq 8 meq PO QDAY 08/17/2304/05 History capsule,extended release albuterol sulfate 90 mcg/actuation 1 inh inhalation [place] N PRN shortness 04/05/25 04/05/25 History aerosol inhaler of breath or wheezing atorvastatin 20 mg tablet 20 mg PO DAILY 04/05/2503/27 History montelukast 10 mg tablet 10 mg PO DAILY 04/05/2503/27 History Allergies Allergy/AdvReac Type Severity Reaction Status Date / Time No Known Allergies Allergy Verified 04/04/25 12:58 Visit Medications Acetaminophen (Acetaminophen 325 Mg Tablet) 650 mg PO Q6H PRN PRN Reason: Fever >100 or pain 1-3 Stop: 05/04/25 17:26 Hydrocodone Bitart/Acetaminophen (Hydrocodone/Apap 5/325 Tablet) 1 tab PO Q6HR PRN PRN Reason: PAIN SCALE 4-6 (Moderate Stop: 04/09/25 17:31 Apixaban (Apixaban 2.5 Mg Tablet) 5 mg PO BID [facility] Stop: 05/05/25 08:59 Aspirin (Aspirin Ec 81 Mg Tabec) 81 mg PO QDAY [facility] Stop: 05/05/25 08:59 Atorvastatin Calcium (Atorvastatin Calcium 10 Mg Tablet) 20 mg PO HS [facility] Stop: 05/04/25 20:59 Dextrose (Dextrose 50%-Water Inj 50 Ml Syringe) 25 ml IV Q15MIN PRN PRN Reason: BG 50-70 responsive npo pt Stop: 05/04/25 17:37 Dextrose (Dextrose 50%-Water Inj 50 Ml Syringe) 50 ml IV Q15MIN PRN PRN Reason: BG <50 OR BG <70 & pt unresponsive Stop: 05/04/25 17:37 Furosemide (Furosemide Inj 10 Mg/Ml Vial 2 Ml) 20 mg IVP BID [facility] Stop: 05/04/25 20:59 Glucagon (Glucagon Inj 1 Mg Vial) 1 mg IM Q15MIN PRN PRN Reason: BG <70, and no IV access Hydralazine HCl (Hydralazine Inj 20 Mg/Ml Vial) 10 mg IVP Q4H PRN PRN Reason: SBP >170 Stop: 05/04/25 17:41 Magnesium Sulfate (Magnesium Sulfate Ivpb) 2 gm in 50 mls @ 25 mls/hr IV X1 ONE Stop: 04/04/25 19:38 Insulin Human Lispro (Insulin Lispro (Admelog) 1 Unit/0.01 Ml Unit) 0 unit SC AC [facility]; Protocol Stop: 05/05/25 07:29 Ipratropium [place] (Ipratropium Rt 0.5 Mg/ 2.5 Ml Nebu) 0.5 mg INH Q6HRRT [facility] Stop: 05/04/25 18:59 Levalbuterol HCl (Levalbuterol Rt 1.25 Mg/0.5 Ml Nebu) 1.25 mg INH Q6HRRT [facility] Stop: 05/04/25 18:59 Montelukast Sodium (Montelukast Sodium 10 Mg Tablet) 10 mg PO QDAY [facility] Stop: 05/05/25 08:59 Ondansetron HCl (Ondansetron Inj 2 Mg/Ml Inj 2 Ml) 4 mg IVP Q6H PRN; Protocol PRN Reason: NAUSEA OR VOMITING Stop: 05/04/25 17:31 Pantoprazole Sodium (Pantoprazole Inj 40 Mg Vial) 40 mg IVP QDAY [facility] Stop: 05/05/25 08:59 Sodium Chloride (Sodium Chloride Rt Zo 0.9% 3 Ml Nebu) 3 ml INH PRN PRN PRN Reason: SOLN Stop: 05/04/25 17:26 Discontinued Medications Apixaban (Apixaban 2.5 Mg Tablet) 5 mg PO BID [facility] Stop: 05/04/25 20:59 Assessment & Plan Plan Assessment Kade is a 74 y/o male with PMHx of [id number] type 2 diabetes mellitus, hypertension, ?CAD, hyperlipidemia, obstructive sleep apnea who is admitted for acute encephalopathy secondary to CO2 narcosis and likely CHF exacerbation. #Acute Encephalopathy likely secondary to #Acute on chronic hypoxic hypercarbic respiratory failure #CO2 narcosis Patient has history of asthma ABG pH 7.2, pCO2 111, pO2 78, HCO3 39, oxygen saturation 92%, base excess +6 VBG pH 7.48, ACV672, PO282, O2 saturation 93%, base excess 11 Plan: Continue BiPAP/CPAP Monitor O2 saturations Blood culture taken follow-up results Patient started on ceftriaxone 1 g IV daily and azithromycin 500 mg IV Lev albuterol inhaler every 6 hours and ipratropium bromide every 6 hours #Fluid overload #? New onset CHF Patient had bilateral pitting leg edema +2 Chest x-ray showed: Mild opacity both lungs bases, mild prominence left ventricle, no pulmonary edema, moderate osteopenia BNP 477 TSH pending Flu panel pending RSV pending Plan: ? Telemetry ? Keep magnesium and potassium above 2 and 4 respectively ? Fluid restriction 1.5 L ? Strict I's and O's ? Continue [place] catheter ? Holding on resuming home Lopressor ? Cardiac stratification ? Lasix 20 mg IV twice daily ? Echocardiogram ordered today #Chronic A-fib [id number]: 6 Rate: 70 Rhythm: Irregular AC: Eliquis 2.5 mg twice daily Unsure why patient is on Eliquis 2.5 mg qday as this typically is not the dose for nonvalvular Afib AC Plan: ? Telemetry ? Keep magnesium and potassium above 2 and 4 respectively ? Resuming Eliquis 5 mg twice daily #Recent Fall Seen on ED visit in February [address] was done Considering pt did not get CT and is altered, will order imaging Plan: ? Head CT without contrast #? CAD #Hypertension #Hyperlipidemia Chronic Plan: ? Holding blood pressure medicines as blood pressures soft at this point ? Resumed home Lipitor 20 mg at bedtime ? Resumed home ASA 81 ? Cardiac stratification #Type 2 diabetes A1c 03/06/2025 6.6% Patient takes metformin daily Plan: -A1c ordered, metformin not started -Insulin sliding scale -Hypoglycemia protocol in place #MOUNIKA/OHS Used to have Trelegy machine at home, however did not use it so it was taken away Pt's BMI is 36, unsure if he has had a sleep study, however he has a diagnosis of MOUNIKA This could contribute to his baseline metabolic alklaosis for compensation for his respiratory status of chronic CO2 retainment Plan: ?Continue with BiPAP at night #Health Maintenance Disposition: Telemetry DVT prophylaxis: Eliquis GI prophylaxis: Protonix Diet: Pending swallow eval CODE STATUS: Full Patient seen and care discussed with my attending physician, Dr. Cardoza, and my senior resident, Dr. Candice Bob MD PGY1 Attending Provider Attestation/Addendum I have examined the patient, reviewed labs and imaging findings, discussed the case with the resident(s), and reviewed entered orders. I agree with the plan of care as outlined in this note, with these additional summaries/recommendations: After examination of the patient and review of the clinical data, I feel that this patient needs admission to the hospital for further treatment and evaluation. Patient seen at bedside. He is noted to be encephalopathic. Stat ABG obtained which revealed significant hypercapnia. Patient placed on BiPAP and will repeat ABG in 1 hour. Patient also noted to have bilateral lower extremity swelling and likely has developed new onset CHF. We will start diuresis and monitor for improvement. Order echocardiogram and if reveals heart failure then we will consult cardiology. Resume home aspirin and atorvastatin. Breathing treatments scheduled. Dr. Sony MD
[2025-04-04] MEDS: Magnesium Sulfate 2 GM Ivpb 2 GM/50 ML BAG IV (19:26)
[2025-04-04] MEDS: cefTRIAXone 1 GM in SODIUM CHLORIDE 0.9% (Popper) 50 ML IV (19:28)
[2025-04-04 19:40] LABS: Base Excess 7 (-3-3); HCO3 40 mEq/L (20-26); Inspired Oxygen, FIO2 60 %; O2 Saturation 78 % (91-98); PCO2 113 mmHg (32.0-48.0)
[2025-04-04 19:44] LABS: Puncture Site Left Radial
[2025-04-04 19:45] LABS: pH, Arterial 7.16 (7.35-7.45)
[2025-04-04 19:46] LABS: PO2 53 mmHg (83-108)
[2025-04-04 19:50] LABS: Allen Test Performed/OK
--- NOTE | 2025-04-04 19:53 | PD.EDADDENDU ---
Emergency Room Addendum Addendum Narrative: I supervised as ICU resident, Dr. Neff, performed an intubation via unconscious sedation. Intubation successfully placed per chest x-ray. Please refer to resident's note for full procedure details.
[2025-04-04] MEDS: ROCURONIUM INJ 10 MG/ML VIAL 10 ML 75 MG IV (20:07)
[2025-04-04] MEDS: ETOMIDATE INJ 2 MG/ML VIAL 10 ML 20 MG IVP (20:07)
[2025-04-04] MEDS: MIDAZOLAM/NS 100 MG IVPB 100 MG/100 ML BAG IV (20:10)
[2025-04-04] MEDS: fentaNYL 2,500 MCG/250 ML BAG 2,500 MCG/250 ML BAG IV (20:10)
--- NOTE | 2025-04-04 20:15 | PC.NURSE ---
PATIENT TITRATED PER EMERGENCY PROTOCOL TITRATION ORDER. PROVIDER RACHELE AT BEDSIDE AWARE.
--- NOTE | 2025-04-04 20:26 | XR_ITS ---
Examination: AP chest single view TECHNIQUE: AP portable supine chest single view. Date and time: April 04, 20252027 hours Comparison April 04, 2025, 1399 hours INDICATIONS: Hypoxic respiratory failure postintubation FINDINGS: Mild to moderate enlargement cardiac contour Endotracheal tube tip 27 mm above morro. Orogastric tube in the stomach. Moderate vascular congestion. Pneumonia left base IMPRESSION: Endotracheal tube tip 27 mm above morro Moderate vascular congestion Pneumonia left base, consider aspiration pneumonia
--- NOTE | 2025-04-04 20:32 | XR_ITS ---
Examination: CTA chest with intravenous contrast 2-D reconstructions 3-D reconstructions, vascular Date and time of exam: April 04, 2025 2135 hours INDICATIONS: Acute hypoxic respiratory failure today, postintubation CTDI: vol (mGy) 113.4 DLP: (mGycm) 635.8 Technique: Multiple axial sections of the thorax have been obtained. 3 mm slice thickness, from below the hemidiaphragms to above the apices of the lungs. Mediastinal and lung density settings have been obtained. 2-D sagittal and coronal reconstructions. 3-D angiographic renderings, 3-D volume renderings, 3D post processing, vascular maximum intensity projections obtained. Contrast administered is 100 cc Isovue 370. Low dose protocols were performed. One or more of the following dose reduction techniques were used; automated exposure control, adjustment of the mA and/or KV according to patient size, use of iterative reconstruction technique. Findings: Endotracheal tube is at the origin of the right mainstem bronchus No thoracic aortic aneurysm dilatation Pulmonary artery segments are not enlarged No pulmonary artery filling defects Mild enlargement cardiac contour with moderate calcification left anterior descending left circumflex coronary arteries, moderate vascular congestion Significant pneumonia right base and left base with small right pleural effusion Liver is irregular in contour Spleen is not enlarged No pancreatic mass Large upper pole right renal cyst 7.3 cm Moderate thoracic spondylosis IMPRESSION: Retract the tracheal tube 2 cm Negative for pulmonary artery emboli Significant bibasilar pneumonia, consider aspiration pneumonia Moderate vascular congestion
[2025-04-04] MEDS: FUROSEMIDE INJ 10 MG/ML 4ML VIAL 40 MG IVP (20:47)
[2025-04-04] MEDS: PIPER/TAZO 3.375 GM PREMIX 3.375 GM/50 ML BAG IV (20:51)
[2025-04-04] MEDS: MethylPREDNISolone SOD SUCC 62.5 MG/ML 2ML VIAL 125 MG IVP (20:52)
--- NOTE | 2025-04-04 21:02 | PD.RESPROC ---
PROCEDURES: Procedure Date / Time 04/04/252029 Intubation Indication(s): acute Resp Failure and inability to protect airway Informed consent obtained: procedure done urgently Time out done, and the following verified: correct patient, side and site, procedure, patient position and implants and/or equipment Sedative: etomidate Mg given: 20 Paralytic: rocuronium Mg given: 75 Laryngoscope: fiber optic video scope Assist device used: fiber optic device ET tube size: 7.5 ET tube uncuffed: No Tube secured depth (cm): 26 Tube secured location: teeth Tube placement confirmation: visualized tube passing through cords, equal breath sounds bilaterally, no breath sounds over epigastrium and confirmation by capnometry Patient tolerated procedure: well and no complications EBL(ml): 0 Intubation complications: none Additional comments: Procedure performed under supervision of Dr. Dominique. Wood Stoll MD, PGY 3. Disclaimer: This note was dictated by speech recognition. Minor errors in split leather department supervisor may be present due to voice recognition software.
--- NOTE | 2025-04-04 21:08 | PD.RESCONSUL ---
HPI Data of Consult Consult date: 04/04/25 Requesting Physician: Adonis Cardoza MD Admitting Provider: Aodnis Cardoza MD Attending Provider: Adonis Cardoza MD Primary Care Provider: Bert Echeverria MD Consult Narrative Reason for consult: [facility] History of present illness: Patient is a 74 years old male with PMH of non-insulin dependent type II DM, HTN, chronic Afib on Eliquis, obstructive sleep apnea on Trelegy, COPD on home oxygen, Hx of CVA who came initially on 04/04/2025 for an evaluation of acute encephalopathy. He was worked up showing acute hypoxic hypercapnic respiratory failure and was started on BiPAP in the ED. Several hours later his repeat ABG showed worsening of respiratory acidosis and hypercapnia. Patient's mentation also worsened significantly and he became unresponsive. Decision was made to intubate patient due to worsening of acute hypoxic hypercapnic respiratory failure and inability to protect airways and upgrade him to ICU. Per family patient was getting pneumonia frequently over the last 2 years. Family also reported his RLE was significantly swollen over the last several days. Patient was also found to have a previous fall last month with no imaging documented from a head CT. Patient was put FULL CODE at the time of admission as his mentation was poor. could not be reached at the time, and family (sisters) did want full treatment. No fever, chills, chest pain, dysuria was reported by family. cc:: cc: Adonis Cardoza MD Review of Systems Review of Systems ROS Unobtainable: unobtainable due to mental status and due to endotracheal tube Exam Vital Signs Temp Pulse Resp BP Pulse Ox O2 Del Method O2 Flow Rate 98.6 F 67 20 213/117 H 100 Mechanical Ventilation 14 04/04/25 19:35 04/04/25 20:47 04/04/25 20:39 04/04/25 20:47 04/04/25 20:39 04/04/25 20:39 04/04/25 17:46 Narrative Exam Gen: Well-developed and well-nourished obese male, unresponsive. HEENT: NCAT, PERRLA, MMM, anicteric conjunctivae. CVS: normal S1 and S2. Irregularly irregular. No M/R/G. Resp: muffled coarse breathing B/L with mild crackles. No rhonchi, rales, or wheezing. Abd: soft, obese, non-tender, non-distended. BS+ in all 4 quadrants. MSK: Good ROM in BUE & BLE. 2+ pitting edema BLE, R>L. Venous stasis dermatitis changes BLE. Neuro: limited exam due to mental status. Results Labs 04/04/25 13:42 04/04/25 13:42 Labs: Short CBC 04/04/25 Range/Units 13:42 WBC 7.0 (3.8-10.6) Thou/mm3 Hgb 13.3 L (13.5-16.0) g/dL Hct 43.5 (41.0-53.0) % Plt Count 183 (140-440) Thou/mm3 BMP 04/04/25 13:42 Sodium 147 H Potassium 4.6 Chloride 103 Carbon Dioxide 37.0 H BUN 29 H Creatinine 1.2 Glucose 151 H Calcium 9.0 Cardiac Enzymes 04/04/25 Range/Units 13:42 Total Creatine Kinase 89 (34-171) U/L Troponin I < 0.020 (0.0-0.045) ng/mL Liver Function 04/04/25 Range/Units 13:42 Total Bilirubin 2.2 H (0.3-1.2) mg/dL AST 19 (0-34) U/L ALT 8 L (10-49) U/L Alkaline Phosphatase 88 (46-116) U/L Albumin 3.9 (3.4-4.8) gm/dL Urine 04/04/25 Range/Units 16:23 Urine Color Yellow (Lt Yel-Yel) Urine Clarity Turbid A (Clear/Hazy) Urine pH 5.5 (5.0-7.0) Ur Specific [place] 1.024 (1.001-1.035) Urine Protein 2+ A (Neg - Trace) Urine Glucose (UA) Negative (Negative) ABG Interpretation ABG results: 04/04/25 04/04/25 04/04/25 13:42 17:07 18:33 ABG pH 7.14 L* 7.20 L ABG pCO2 107 H* 111 H* ABG pO2 85 78 L ABG HCO3 36 H 39 H ABG O2 Saturation 94 92 ABG Base Excess 4 H 6 H VBG pH 7.48 VBG pCO2 50 VBG pO2 82 H VBG Base Excess 11 H 04/04/25 19:35 ABG pH 7.16 L* ABG pCO2 113 H* ABG pO2 53 L* D ABG HCO3 40 H ABG O2 Saturation 78 L ABG Base Excess 7 H VBG pH VBG pCO2 VBG pO2 VBG Base Excess Quality Measures Quality Measures VTE prophylaxis Advance care planning discussed with:: sibling Medications Home Medications and Allergies Home Medications ?Medication ?Instructions ?Recorded ?Confirmed ?Type amlodipine 5 mg tablet 5 mg PO BID 03/09/23 10/01/23 History apixaban 2.5 mg tablet (Eliquis) 2.5 mg PO DAILY 03/09/23 10/01/23 History losartan 50 mg-hydrochlorothiazide 1 tab PO DAILY 03/09/23 10/01/23 History 12.5 mg tablet metformin 500 mg tablet 500 mg PO DAILY 03/09/23 10/01/23 History metoprolol tartrate 100 mg tablet 200 mg PO BID 03/09/23 10/01/23 History aspirin 81 mg tablet,delayed 81 mg PO QDAY 08/17/23 10/01/23 History release potassium chloride 8 mEq 8 meq PO QDAY 08/17/23 10/01/23 History capsule,extended release Allergies Allergy/AdvReac Type Severity Reaction Status Date / Time No Known Allergies Allergy Verified 04/04/25 12:58 Visit Medications Acetaminophen (Acetaminophen 325 Mg Tablet) 650 mg PO Q6H PRN PRN Reason: Fever >100 or pain 1-3 Stop: 05/04/25 17:26 Hydrocodone Bitart/Acetaminophen (Hydrocodone/Apap 5/325 Tablet) 1 tab PO Q6HR PRN PRN Reason: PAIN SCALE 4-6 (Moderate Stop: 04/09/25 17:31 Aspirin (Aspirin Ec 81 Mg Tabec) 81 mg PO QDAY JOSELUIS Stop: 05/05/25 08:59 Atorvastatin Calcium (Atorvastatin Calcium 10 Mg Tablet) 20 mg PO HS JOSELUIS Stop: 05/04/25 20:59 Dextrose (Dextrose 50%-Water Inj 50 Ml Syringe) 25 ml IV Q15MIN PRN PRN Reason: BG 50-70 responsive npo pt Stop: 05/04/25 17:37 Dextrose (Dextrose 50%-Water Inj 50 Ml Syringe) 50 ml IV Q15MIN PRN PRN Reason: BG <50 OR BG <70 & pt unresponsive Stop: 05/04/25 17:37 Furosemide (Furosemide Inj 10 Mg/Ml Vial 2 Ml) 20 mg IVP BID JOSELUIS Stop: 05/04/25 20:59 Glucagon (Glucagon Inj 1 Mg Vial) 1 mg IM Q15MIN PRN PRN Reason: BG <70, and no IV access Hydralazine HCl (Hydralazine Inj 20 Mg/Ml Vial) 10 mg IVP Q4H PRN PRN Reason: SBP >170 Stop: 05/04/25 17:41 Fentanyl Citrate (Sublimaze Inj 2,500 Mcg/250 Ml Bag) 2,500 mcg in 250 mls @ 2.5 mls/hr IV .Q24H PRN; Protocol PRN Reason: PER PROTOCOL Stop: 04/09/25 19:50 Last Titration: 04/04/25 20:20 Dose: 125 mcg/hr, 12.5 mls/hr Midazolam HCl (Versed Pf Inj In Ns Premix) 100 mg in 100 mls @ 1 mls/hr IV .Q24H PRN; Protocol PRN Reason: PER PROTOCOL Stop: 04/09/25 19:50 Last Admin: 04/04/25 20:10 Dose: 1 mg/hr, 1 mls/hr Piperacillin/Tazobactam/Dextrose (Zosyn) 3.375 gm in 50 mls @ 12.5 mls/hr IV Q8HR JOSELUIS Stop: 04/12/25 05:59 Vancomycin HCl 2,000 mg/ (Sodium Chloride) 500 mls @ 150 mls/hr IV X1 ONE Stop: 04/05/25 00:19 Propofol (Diprivan Ivpb) 1,000 mg in 100 mls @ 3.6 mls/hr IV .Q24H PRN; Protocol PRN Reason: PER PROTOCOL Stop: 05/04/25 20:58 Insulin Human Lispro (Insulin Lispro (Admelog) 1 Unit/0.01 Ml Unit) 0 unit SC AC JOSELUIS; Protocol Stop: 05/05/25 07:29 Ipratropium [place] (Ipratropium Rt 0.5 Mg/ 2.5 Ml Nebu) 0.5 mg INH Q6HRRT JOSELUIS Stop: 05/04/25 18:59 Levalbuterol HCl (Levalbuterol Rt 1.25 Mg/0.5 Ml Nebu) 1.25 mg INH Q6HRRT [facility] Stop: 05/04/25 18:59 Methylprednisolone Sodium Succinate (Methylprednisolone Sod Succ 62.5 Mg/Ml 2ml Vial) 60 mg IVP Q6HR JOSELUIS Stop: 04/12/25 02:59 Montelukast Sodium (Montelukast Sodium 10 Mg Tablet) 10 mg PO QDAY [facility] Stop: 05/05/25 08:59 Ondansetron HCl (Ondansetron Inj 2 Mg/Ml Inj 2 Ml) 4 mg IVP Q6H PRN; Protocol PRN Reason: NAUSEA OR VOMITING Stop: 05/04/25 17:31 Pantoprazole Sodium (Pantoprazole Inj 40 Mg Vial) 40 mg IVP QDAY [facility] Stop: 05/05/25 08:59 Pharmacy Consult (Vancomycin Pharmacy To Dose 1 Each Each) 1 each IV QDAY [facility] Stop: 05/04/25 20:29 Sodium Chloride (Sodium Chloride Rt Zo 0.9% 3 Ml Nebu) 3 ml INH PRN PRN PRN Reason: SOLN Stop: 05/04/25 17:26 Discontinued Medications Apixaban (Apixaban 2.5 Mg Tablet) 5 mg PO BID [facility] Stop: 05/04/25 20:59 Apixaban (Apixaban 2.5 Mg Tablet) 5 mg PO BID [facility] Stop: 05/05/25 08:59 Etomidate (Etomidate Inj 2 Mg/Ml Vial 10 Ml) 20 mg IVP X1 ONE Stop: 04/04/25 19:50 Last Admin: 04/04/25 20:07 Dose: 20 mg Furosemide (Furosemide Inj 10 Mg/Ml 4ml Vial) 40 mg IVP X1 ONE Stop: 04/04/25 20:43 Last Admin: 04/04/25 20:47 Dose: 40 mg Magnesium Sulfate (Magnesium Sulfate Ivpb) 2 gm in 50 mls @ 25 mls/hr IV X1 ONE Stop: 04/04/25 19:38 Last Admin: 04/04/25 19:26 Dose: 25 mls/hr Ceftriaxone Sodium 1 gm/ (Sodium Chloride) 50 mls @ 100 mls/hr IV QDAY [facility] Stop: 04/11/25 18:57 Last Infusion: 04/04/25 20:00 Dose: Infused Azithromycin 500 mg/ Sodium (Chloride) 250 mls @ 250 mls/hr IV QDAY [facility] Stop: 04/11/25 18:58 Azithromycin 500 mg/ Sodium (Chloride) 250 mls @ 250 mls/hr IV X1 ONE Stop: 04/04/25 20:14 Piperacillin/Tazobactam/Dextrose (Zosyn) 3.375 gm in 50 mls @ 100 mls/hr IV X1 ONE Stop: 04/04/25 20:51 Last Admin: 04/04/25 20:51 Dose: 100 mls/hr Propofol (Diprivan Ivpb) 1,000 mg in 100 mls @ 3.6 mls/hr IV .Q24H PRN; Protocol PRN Reason: PER PROTOCOL Stop: 05/04/25 20:58 Methylprednisolone Sodium Succinate (Methylprednisolone Sod Succ 62.5 Mg/Ml 2ml Vial) 125 mg IVP X1 ONE Stop: 04/04/25 20:26 Last Admin: 04/04/25 20:52 Dose: 125 mg Rocuronium [place] (Rocuronium Inj 10 Mg/Ml Vial 10 Ml) 75 mg IV X1 ONE Stop: 04/04/25 19:50 Last Admin: 04/04/25 20:07 Dose: 75 mg Assessment & Plan Plan Patient is a 74 years old male with PMH of non-insulin dependent type II DM, HTN, chronic Afib on Eliquis, obstructive sleep apnea on Trelegy, COPD on home oxygen, Hx of CVA who presented with acute encephalopathy and was intubate and upgraded to ICU due to worsening acute hypoxic hypercapnic respiratory failure. Neuro: #Acute encephalopathy. #Recent ground level fall. #Sedation. Patient initially presented with altered mental status and excessive somnolence, likely due to hypercapnia and respiratory acidosis. He was seen in the emergency room 1 month ago due to ground-level fall when he injured his head but no imaging was done at that time therefore CT scan of the head was ordered showing no hemorrhage or mass effect. He was started on sedation after intubation with propofol, midazolam and fentanyl. Plan: -Continue current sedation with propofol, midazolam and fentanyl, maintain RASS -4. #Hx of CVA. Per family patient had stroke 3 years ago, no residual deficit, head CT unremarkable. Plan: -continue home aspirin and atorvastatin. Cardiovascular: #Possible CHF. #Fluid overload status. #Hypertension. Patient has no history of CHF, was on amlodipine, losartan-hydrochlorothiazide and metoprolol for hypertension. On admission he has pitting edema over his bilateral lower extremities and crackles, BNP 477, imaging showed moderate vascular congestion. Patient was normotensive since admission to the ED however became hypertensive at 180/100 after intubation and sustaining it. Plan: -Continue IV Lasix 40 mg IV. -Hydralazine 10 mg IV x 1 ordered due to hypertension. -Resume home amlodipine and losartan in the morning. -Echo is ordered. #Chronic Afib. Patient has chronic Afib and is on metoprolol and Eliquis at home. HR was bradycardic since admission at 50s. EKG showed Afib, no RVR. Plan: -will hold off on metoprolol for now due to borderline bradycardia. -continue home Eliquis, consider readjusting dose as he takes 2.5 mg daily only. Respiratory: #Acute hypoxic hypercapnic respiratory failure. #Primary respiratory acidosis with secondary metabolic alkalosis. #Mechanical ventilation. #Pneumonia. #Hx of COPD. #Hx of MOUNIKA. Patient initially presented with acute hypoxic hypercapnic respiratory failure and was started on BiPAP in the ED, several hours later his ABG showed worsening of hypoxia and hypercapnia. His mentation also worsened and he became unresponsive. Decision was made to intubate patient and upgrade him to ICU. Patient has history of COPD and MOUNIKA and is on home oxygen and Trelegy. Family reports that he was getting frequent pneumonia over the last 2 years. Imaging showed extensive bibasilar pneumonia, possible aspiration and moderate vascular congestion. Patient has never been diagnosed with CHF before. His labs do not show WBCs increase and no fever or chills were reported. Family also reported that he had right lower extremity swelling over the last several days therefore ultrasound and CTA were ordered ruling out DVT and PE. Patient was given 40 mg of Lasix in the ED with good urinary output with 2 L of urine over 2 hours. Etiology of respiratory failure is likely multifactorial with ongoing pulmonary infection and fluid overload status. Patient is on mechanical ventilation AC CMV: TV 400, RR 20, PEEP 5, FiO2 40%. Plan: -Continue current antibiotic regimen with Zosyn and vancomycin IV. -Continue Lasix 40 mg IV, strict monitoring of PHIL. -Echo is ordered to rule out CHF. -Continue mechanical ventilation on current settings, will repeat ABG in 2 hours. -Cultures were taken, cocci serology ordered. -Given history of COPD he was given Solu-Medrol 125 mg x 1 and was started on 60 mg every 6 hours. Gastrointestinal: #Elevated total bilirubin. On admission t. bili 2.2, consistent with prior readings, no hx of liver disease reported. AST/ALT are WNL. Plan: -monitor with daily labs. -consider further work up. Renal: No active problem. Endocrine: #Non-insulin dependent type II Diabetes Mellitus. On metformin 500 mg daily at home. On admission glucose 151. HgbA1C 6.6% from last month. Plan: -started on SSI. -monitor glucose Q6H. Infectious Disease: #Pneumonia. Patient presented with significant respiratory distress however did not have any fever or chest pain, labs showed normal WBCs at 7. Patient is not septic, however imaging shows extensive bibasilar pneumonia, possible aspiration. Patient has a history of COPD and MOUNIKA, on home oxygen and Trelegy. Plan: -Started on Zosyn and vancomycin IV (04/04 - ). -Blood culture and sputum cultures are taken. -Flu, COVID and RSV screening ordered. -Cocci serology ordered. #Possible UTI. Urinalysis showed RBC 1006, WBC 100, LE positive. No dysuria reported. Plan: -Continue current antibiotic regimen. -Urine culture taken. Hematology/Oncology: #Mild normocytic anemia. Patient's hemoglobin 13.3 on admission, consistent with prior readings. Plan: - monitor with daily labs. Diet: NPO. DVT prophylaxis: Eliquis. Lines: peripheral x2. Tubes: NG tube. GI prophylaxis: Protonix. Code status: full code. Disposition: ICU. Plan of care discussed with attending Dr. Cartagena. Wood Stoll MD, PGY 3. Disclaimer: This note was dictated by speech recognition. Minor errors in pitching coach may be present due to voice recognition software. Attending Provider Attestation/Addendum Also after examination of the patient and review of the clinical data I feel that this patient needs admission to the hospital for further treatment/evaluation. I have discussed and was present for the essential components of the history, physical examination, diagnosis, and treatment plan with the resident. I agree with the patient's care as documented by the resident and amended herein by me. Ahmet Cartagena DO. Although this document has been carefully reviewed, there may still be some phonetic and other typographical errors. These errors are purely grammatical due to imperfections in the software program and should not be construed in any way to compromise the substance of the patient's medical care during this visit. Patient seen and evaluated in the ED., 74-year-old male with significant past medical history of hypertension, hyperlipidemia, atrial fibrillation on AC, previous CVA, type 2 diabetes, MOUNIKA on Trelegy, COPD on home O2 unclear quantity, presented to the ED for acute encephalopathy secondary to hypercapnia. The patient was initially admitted by the day team however due to worsening hypercarbia and mentation, the decision was made while the patient was still in the ED to intubate and transfer the patient to the ICU. In the emergency department, initial vital signs demonstrated the patient to be normotensive, respiratory rate 22, afebrile, initial O2 sat 63% on room air which the patient was placed on nasal cannula then BiPAP. Patient's initial ABG demonstrated a pH of 7.14, [id number], PO2 of 85 and a bicarb of 36. Several more repeated however when the decision to intubate was made, the patient's encephalopathy had worsened, and repeat ABG demonstrated a pH of 7.16, worsening CO2 of 113 and a PO2 of 53. Other significant labs included normal WBC, hemoglobin 13.3, D-dimer 711, sodium 147, potassium 4.6, bicarb 37, BUN 29 and a creatinine of 1.2 with a baseline around 0.9-1.0. Lactic acid 1.3, T. bili 2.2 although the patient appears to be elevated at least from the readings in [id number]. Negative troponin and a BNP of 477. Urinalysis was positive, unclear if the patient was symptomatic or not as he was encephalopathic. U tox was negative. Initial EKG demonstrated atrial fibrillation although rate controlled, initial chest x-ray demonstrated bibasilar pneumonia, CT head was negative for any acute intracranial pathology a chest CTA was performed in the ED and was negative for any PE however demonstrated significant bibasilar pneumonia suggestive of aspiration pneumonia, a venous Doppler ultrasound was also performed and was negative for DVT. Patient transferred to the ICU for acute hypoxic respiratory failure secondary to hypercapnia, possible COPD exacerbation and possible obesity hypoventilation syndrome, hypercapnic encephalopathy, bilateral bibasilar pneumonia, primary respiratory acidosis with secondary metabolic alkalosis and possible urinary tract infection. Patient is on mechanical ventilation, sedated with propofol and fentanyl for now, demonstrating significant improvement in his ABG with a pH of 7.52, PCO2 of 47, PO2 of 60 and bicarb of 38. Will continue to adjust vent for optimization. Blood and urine cultures were drawn and are pending. Patient started on Zosyn for suspected aspiration pneumonia, which should also cover a urinary source. An echo was ordered and is pending, will continue to monitor closely and restart home meds when able, the patient is stable at present.
[2025-04-04] MEDS: PROPOFOL 1,000 MG IVPB 1,000 MG/100 ML VIAL 3.6 MG IV (21:10)
--- NOTE | 2025-04-04 21:15 | XR_ITS ---
Examination: Venous duplex lower extremity sonogram, bilateral. Date and time of exam: April 04, 2025 2147 hours INDICATIONS: Bilateral leg swelling and pain beginning one week ago Technique: Multiple sonographic images of the deep venous system have been obtained. B-mode/2-D grayscale imaging of vascular structures and Doppler spectral analysis (waveforms) and color performed Both legs are examined. Findings: Deep venous systems do not demonstrate abnormal echogenicity. All visualized deep veins exhibit compressibility. All visualized deep veins exhibit augmentation. Impression: Negative for deep vein thrombosis
[2025-04-04] MEDS: Vancomycin Inj 2,000 MG in SODIUM CHLORIDE 0.9% 500 ML 500 ML 150 MG IV (22:01)
--- NOTE | 2025-04-04 22:21 | PC.NURSE ---
FAMILY CONTACT: [facility]. [phone]
--- NOTE | 2025-04-04 22:26 | XR_ITS ---
Examination: AP chest single view TECHNIQUE: AP portable semiupright chest single view Date and time: April 04, 2025, 1032 hours Comparison April 04, 20252028 hours INDICATIONS: Tracheal tube retracted 2 cm, FINDINGS: Tracheal tube tip 5 cm above mor[place], the position on the CT scan may have related to position of the head and neck Mild enlargement cardiac contour Moderate vascular congestion Bibasilar pneumonia on this study IMPRESSION: Bibasilar pneumonia on this study, consider aspiration pneumonia
[2025-04-04] MEDS: LEVALBUTEROL RT 1.25 MG/0.5 ML NEBU INH (22:30)
[2025-04-04] MEDS: IPRATROPIUM RT 0.5 MG/ 2.5 ML NEBU INH (22:32)
[2025-04-04 22:52] LABS: Base Excess 13 (-3-3); HCO3 36 mEq/L (20-26); O2 Saturation 101 % (91-98); PCO2 37 mmHg (32.0-48.0); PO2 194 mmHg (83-108); pH, Arterial 7.59 (7.35-7.45)
[2025-04-04 22:55] LABS: Allen Test Performed/OK; Inspired Oxygen, FIO2 100 %; Puncture Site Right Radial
[2025-04-04 23:54] LABS: Base Excess 13 (-3-3); HCO3 37 mEq/L (20-26); Inspired Oxygen, FIO2 50 %; O2 Saturation 99 % (91-98); PCO2 45 mmHg (32.0-48.0); PO2 87 mmHg (83-108); Puncture Site Right Radial; pH, Arterial 7.53 (7.35-7.45)
[2025-04-04 23:55] LABS: Allen Test Performed/OK
[2025-04-05] VITALS (70 sets, daily range): BP systolic 103–188; BP diastolic 61–143; PULSE 65–112; RESP 5–28; TEMP 36–37.2; O2SAT 93–99; BMI 37.7
[2025-04-05] MEDS: hydrALAZINE INJ 20 MG/ML VIAL 10 MG IVP (00:22)
[2025-04-05] MEDS: LEVALBUTEROL RT 1.25 MG/0.5 ML NEBU INH ×6 (00:27→22:31)
[2025-04-05] MEDS: IPRATROPIUM RT 0.5 MG/ 2.5 ML NEBU INH ×6 (00:28→22:31)
[2025-04-05] MEDS: PROPOFOL 1,000 MG IVPB 1,000 MG/100 ML VIAL 25.2 MG IV (00:33)
[2025-04-05 01:32] LABS: Base Excess 13 (-3-3); HCO3 38 mEq/L (20-26); Inspired Oxygen, FIO2 30 %; O2 Saturation 94 % (91-98); PCO2 47 mmHg (32.0-48.0); PO2 60 mmHg (83-108); pH, Arterial 7.52 (7.35-7.45)
[2025-04-05 01:33] LABS: Allen Test Performed/OK; Puncture Site Right Radial
--- NOTE | 2025-04-05 01:37 | PC.SS ---
abg dropp off at 01:26, Alvina from lab received it waiting for abg results
[2025-04-05] MEDS: MethylPREDNISolone SOD SUCC 62.5 MG/ML 2ML VIAL 60 MG IVP ×3 (02:59→09:52)
[2025-04-05] MEDS: PIPER/TAZO INJ 4.5 GM in SODIUM CHLORIDE 0.9% (POP) 100 ML IV ×4 (03:00→18:18)
[2025-04-05 05:06] LABS: Base Excess 11 (-3-3); HCO3 37 mEq/L (20-26); Inspired Oxygen, FIO2 21 %; O2 Saturation 93 % (91-98); PCO2 50 mmHg (32.0-48.0); PO2 60 mmHg (83-108); pH, Arterial 7.47 (7.35-7.45)
[2025-04-05 05:09] LABS: Allen Test Performed/OK; Puncture Site Right Radial
[2025-04-05] MEDS: PROPOFOL 1,000 MG IVPB 1,000 MG/100 ML VIAL 18 MG IV (05:26)
[2025-04-05] MEDS: INSULIN LISPRO (AdmeLOG) 1 UNIT/0.01 ML UNIT SC ×2 (06:00→18:25)
[2025-04-05 06:29] LABS: Basophils # (Auto) 0.0 Thou/mm3 (0.0-0.2); Basophils % (Auto) 0 % (0-2.5); Eosinophils # (Auto) 0.0 Thou/mm3 (0.0-0.5); Eosinophils % (Auto) 0 % (0-10); Hematocrit 45.5 % (41.0-53.0); Hemoglobin 13.7 g/dL (13.5-16.0); Immature Granulocytes Auto 0.03 Thou/mm3 (0.00-0.00); Lymphocytes # (Auto) 0.6 Thou/mm3 (1.0-4.8); Lymphocytes % (Auto) 7 % (10-50); Mean Corpuscular HGB Conc 30.1 g/dl (31.0-37.0); Mean Corpuscular Hemoglobin 27.3 pg (25.0-35.0); Mean Corpuscular Volume 91 fL (80-100); Monocytes # (Auto) 0.1 Thou/mm3 (0.0-0.8); Monocytes % (Auto) 2 % (0-12); Neutrophils # (Auto) 7.4 Thou/mm3 (1.8-7.7); Neutrophils % (Auto) 91 % (37-80); Nucleated Red Blood Cell # 0.00 Thou/mm3 (0.00-0.00); Nucleated Red Blood Cell % 0 /100 WBC (0); Platelet Count 168 Thou/mm3 (140-440); RDW Standard Deviation 50.9 fL (35.1-43.9); Red Blood Count 5.02 Miln/mm3 (4.50-5.90); White Blood Count 8.1 Thou/mm3 (3.8-10.6)
[2025-04-05 06:45] LABS: Glucose Estimated Average 151 mg/dL (80-131); Hemoglobin A1C 6.9 % Hgb (4.8-6.0); INR 1.2 (0.9-1.3); Prothrombin Time 12.9 Seconds (9.0-12.2)
[2025-04-05 07:25] LABS: Alanine Aminotransferase 8 U/L (10-49); Albumin, Serum 3.5 gm/dL (3.4-4.8); Albumin/Globulin Ratio 1.3 (1.2-2.2); Alkaline Phosphatase 75 U/L (46-116); Anion Gap 13 (7-16); Aspartate Amino Transferase 12 U/L (0-34); BUN/Creatinine Ratio 24 Ratio (12-20); Bilirubin,Total 2.8 mg/dL (0.3-1.2); Blood Urea Nitrogen 26 mg/dL (9-23); Calcium 9.2 mg/dL (8.3-10.6); Calcium (Corrected) 9.6 mg/dL (8.5-10.1); Carbon Dioxide 35.4 mMol/L (20.0-31.0); Cardiac Risk Estimate 3.7 RATIO (4.0-6.7); Chloride 98 mMol/L (98-107); Cholesterol 77 mg/dL (132-200); Creatinine (Component) 1.1 mg/dL (0.6-1.3); Estimated Creatinine Clearance 72.6 mL/min (>60); Globulin 2.7 gm/dL (2.3-3.5); Glucose 167 mg/dL (74-106); HDL Cholesterol 21 mg/dL (40-60); LDL Cholesterol,Calculated 39 mg/dL (0-130); Magnesium 1.4 mg/dL (1.6-2.6); Osmolality,Calculated 299 (275-295); Phosphorous 3.5 mg/dL (2.4-5.1); Potassium 3.6 mMol/L (3.4-5.1); Procalcitonin 0.07 ng/ml (0.0-0.49); Sodium 146 mMol/L (136-145); Thyroid Stimulating Hormone 1.35 uIU/mL (0.55-4.78); Total Protein 6.2 gm/dL (5.7-8.2); Triglycerides 87 mg/dL (30-150); eGFR > 60 See Note
--- NOTE | 2025-04-05 08:57 | EKG_ITS ---
[facility] Test Date: 2025-04-05 Pat Name: DESEAN MCCORMACK [facility] Gender[facility] Verifier: GEOVANNY : [id number] Requested By: Lauren Parry Order Number: [id number] Reading MD: Lauren Parry Measurements Intervals [place] Rate: 88 P: MO: QRS: 47 QRSD: 89 T: 30 QT: 400 QTc: 485 Interpretive Statements ATRIAL FIBRILLATION MODERATE T-WAVE ABNORMALITY, CONSIDER ANTEROLATERAL ISCHEMIA Compared to ECG 04/04/2025 13:12:27 T-wave abnormality now present Possible ischemia now present Indeterminate axis no longer present /store/S0/[id number]
[2025-04-05 09:48] LABS: Creatine Kinase 39 U/L (34-171); Troponin I < 0.020 ng/mL (0.0-0.045)
[2025-04-05] MEDS: Magnesium Sulfate 4 GM Ivpb 4 GM/50 ML BAG IV (09:50)
[2025-04-05] MEDS: ASPIRIN EC 81 MG TABEC PO (09:51)
[2025-04-05] MEDS: POTASSIUM CHLORIDE 10% 20 MEQ/15 ML UDC 40 MEQ NG (09:51)
[2025-04-05] MEDS: APIXABAN 2.5 MG TABLET PO ×2 (09:51→21:20)
[2025-04-05] MEDS: MONTELUKAST SODIUM 10 MG TABLET PO (09:51)
[2025-04-05] MEDS: AZITHROMYCIN INJ 500 MG in SODIUM CHLORIDE 0.9% 250 ML 250 ML 250 MG IV (09:53)
--- NOTE | 2025-04-05 10:33 | ESPR_ITS ---
<Statement entered by Jose G Gomez MD - 04/06/25 08:58> TOTAL CC TIME: 65 MIN I saw and evaluated the patient. I reviewed the resident?s note and agree with findings and plan as documented in the resident?s note. Upon my evaluation, this patient had a high probability of imminent or life- threatening deterioration due to acute on chronic hypercapnic resp failure which required my direct attention, intervention, and personal management. This time is exclusive of time spent on procedures, which are documented separately if performed. pt presented to ED w/ SOB and compensated hypercapnia which progressed while he was in ED we were not present in ED to witness how he appeared but per family - he was not in distress - but rather become unresponsive on MV review - EtCO2 waveform interrogation and on physical exam - there is no evid to support COPD exacerbation NIF is -42cm h20 and motor exam is symmetric antigravity head ct negative for bleed (had a fall 2 weeks ago on eliquis w/ scalp laceration) u.tox negative for opiods/benzos on PS 07/01 he develops increasing hypercarbia in setting of bradypnea. while this can be explained due to prolonged effects of prop/fent/versed, it remains concerning given he had this problem in the ED... will hold extubation until we confirm he is more awake and compensating further w/u for hypoventilation will be required unless it corrects from w/holding sedation longer. <Statement entered by Lauren Parry MD - 04/05/25 18:45> Patient was seen and examined at bedside. I agree on the assessment and plan on this note as documented by resident Montrell Peacock PGY1. Mr. Dalal is a 74-year-old male, admitted to ICU from telemetry overnight patient was intubated in the emergency department secondary to severe hypercapnic and hypoxic respiratory failure was started on BiPAP, several hours later as patient's ABG worsened respiratory status and mentation worsened. This morning patient was weaned off of sedation, was started on SBT, RSBI less than 105, neck -40, however on objective exam patient has episodes of apnea, underlying bradypnia, patient started on metoprolol 50 twice daily, continue with Zosyn and azithromycin, stop steroids. Patient had a CT scan of the head on presentation, had a fall about a week ago, CT head negative for any hemorrhage. Patient is likely still weaning off of sedation, was placed on 3 sedatives overnight with RASS score of -4, once patient is more awake in a.m. we will attempt SBT again to see if patient meets extubation criteria. Overnight we will keep patient on SIMV volume control, VT 500 flow 40 RR 8 PEEP 5 FiO2 40 PS 10. Case discussed with attending Dr. Patricia Parry MD PGY-2 Documentation for date of: 04/05/25 Subjective Subjective Interval history: HPI: Patient is a 74 years old male with PMH of non-insulin dependent type II DM, HTN, chronic Afib on Eliquis, obstructive sleep apnea on Trelegy, COPD on home oxygen, Hx of CVA who came initially on 04/04/2025 for an evaluation of acute encephalopathy. He was worked up showing acute hypoxic hypercapnic respiratory failure and was started on BiPAP in the ED. Several hours later his repeat ABG showed worsening of respiratory acidosis and hypercapnia. Patient's mentation also worsened significantly and he became unresponsive. Decision was made to intubate patient due to worsening of acute hypoxic hypercapnic respiratory failure and inability to protect airways and upgrade him to ICU. Per family patient was getting pneumonia frequently over the last 2 years. Family also reported his RLE was significantly swollen over the last several days. Patient was put FULL CODE at the time of admission as his mentation was poor. could not be reached at the time, and family (sisters) did want full treatment. No fever, chills, chest pain, dysuria was reported by family. 04/05/2025: Patient was weaned off of sedation this morning, wake alert and following commands, patient placed on pressure support of 10, RSBI is less than 105, NIF - 40. However on objective exam patient noted to have episodes of apnea and lobe minute ventilation, off of extubation for now as patient is bradypnic. Patient placed on SIMV volume control, VT 500 flow 40 RR 8 PEEP 5 FiO2 40 PS 10. ET of the head was negative for any hemorrhage or acute cerebrovascular event, patient was on heavy sedation with a RASS score of -4, likely contributing to his bradypnea. Patient is currently in A-fib morning of 03/27/2025 with rate of 100- 110. Metoprolol 50 mg BID. Holding home amlodipine and losartan. Will continue Eliquis 2.5 twice daily for DVT prophylaxis and A-fib. Steroids discontinued. Lasix switched from 40 mg to 20 mg. Continue to keep patient off of sedation. Will attempt to extubate again in the a.m. 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 Exam Vital Signs Temp Pulse Resp BP Pulse Ox O2 Del Method O2 Flow Rate 97.5 F 99 16 136/64 H 95 Mechanical Ventilation 35 04/05/25 08:30 04/05/25 10:18 04/05/25 09:45 04/05/25 10:18 04/05/25 10:18 04/05/25 07:00 04/05/25 05:00 FiO2 40 04/05/25 10:18 Narrative Exam General: Intubated. Neurologic: Sedated, following commands. HEENT: Normocephalic, atraumatic, mucous membranes moist. Pupils reactive to light. Heart: Irregular rythm, Afib with a rate 100-110. Lungs: Wheezing in the bases bilaterally. Abdomen: Obese, soft, nondistended, nontender. Extremities: 2+ pitting edema in the lower extremities bilaterally below the knee. 2+ radial and dorsalis pedis pulses bilaterally. Skin: Warm. Dry. Venous stasis dermatitis in the lower extremities bilaterally below the knee. Objective Labs 04/05/25 04:25 04/05/25 04:25 Labs: Laboratory Results - last 24 hr 04/04/25 04/04/25 04/04/25 13:42 16:23 17:07 WBC 7.0 RBC 4.82 Hgb 13.3 L Hct 43.5 MCV 90 MCH 27.6 MCHC 30.6 L RDW Std Deviation 51.6 H Plt Count 183 Neut % (Auto) 78 Lymph % (Auto) 11 [place] % (Auto) 10 Eos % (Auto) 0 Baso % (Auto) 0 Neut # (Auto) 5.5 Lymph # (Auto) 0.8 L [place] # (Auto) 0.7 Eos # (Auto) 0.0 Baso # (Auto) 0.0 Immature Gran # (Auto) 0.02 H Absolute Nucleated RBC 0.00 Immature Gran % 0 Nucleated RBC % 0 PT INR D-Dimer 711 H Puncture Site Left Radial ABG pH 7.14 L* ABG pCO2 107 H* ABG pO2 85 ABG HCO3 36 H ABG O2 Saturation 94 ABG Base Excess 4 H VBG pH 7.48 VBG pCO2 50 VBG pO2 82 H VBG O2 Sat (Ravi) 93 L VBG Base Excess 11 H Oxygen Liter Flow 4 FiO2 21 Sodium 147 H Potassium 4.6 Chloride 103 Carbon Dioxide 37.0 H Anion Gap 7 BUN 29 H Creatinine 1.2 Estim Creat Clear Calc 65.5 eGFR > 60 BUN/Creatinine Ratio 24 H Glucose [address] Glu mg/dL Hemoglobin A1c Calculated Osmolality 301 H Lactic Acid 1.3 Calcium 9.0 Corrected Calcium 9.1 Phosphorus Magnesium 1.7 Total Bilirubin 2.2 H AST 19 ALT 8 L Alkaline Phosphatase 88 Total Creatine Kinase 89 Troponin I < 0.020 B-Natriuretic Peptide 477 H* Total Protein 6.6 Albumin 3.9 Globulin 2.7 Albumin/Globulin Ratio 1.4 Triglycerides Cholesterol LDL Cholesterol, Calc HDL Cholesterol Cholesterol/HDL Ratio Lipase 36 Procalcitonin TSH Ur Collection Type Clean Catch Urine Color Yellow Urine Clarity Turbid A Urine pH 5.5 Ur Specific [place] 1.024 Urine Protein 2+ A Urine Glucose (UA) Negative Urine Ketones Negative Urine Blood 3+ A Urine Nitrite Negative Urine Bilirubin Negative Urine Urobilinogen (Auto) Negative Ur Leukocyte Esterase Positive Urine RBC 1006 H Urine WBC 100 H Ur Squamous Epith Cells 1 Urine Bacteria None Ur Culture Indicated? Yes Urine Opiates Screen Negative Urine Fentanyl Screen Negative Ur Barbiturates Screen Negative U Amphetamin/Meth Scrn Negative U Benzodiazepines Scrn Negative U Cocaine Metab Screen Negative U Marijuana (THC) Screen Negative 04/04/25 04/04/25 04/04/25 18:33 19:35 22:40 WBC RBC Hgb Hct MCV MCH MCHC RDW Std Deviation Plt Count Neut % (Auto) Lymph % (Auto) [place] % (Auto) Eos % (Auto) Baso % (Auto) Neut # (Auto) Lymph # (Auto) [place] # (Auto) Eos # (Auto) Baso # (Auto) Immature Gran # (Auto) Absolute Nucleated RBC Immature Gran % Nucleated RBC % PT INR D-Dimer Puncture Site Left Radial Left Radial Right Radial ABG pH 7.20 L 7.16 L* 7.59 H D ABG pCO2 111 H* 113 H* 37 D ABG pO2 78 L 53 L* D 194 H D ABG HCO3 39 H 40 H 36 H ABG O2 Saturation 92 78 L 101 H ABG Base Excess 6 H 7 H 13 H VBG pH VBG pCO2 VBG pO2 VBG O2 Sat (Ravi) VBG Base Excess Oxygen Liter Flow FiO2 60 60 100 Sodium Potassium Chloride Carbon Dioxide Anion Gap BUN Creatinine Estim Creat Clear Calc eGFR BUN/Creatinine Ratio Glucose Estimated Ave Glu mg/dL Hemoglobin A1c Calculated Osmolality Lactic Acid Calcium Corrected Calcium Phosphorus Magnesium Total Bilirubin AST ALT Alkaline Phosphatase Total Creatine Kinase Troponin I B-Natriuretic Peptide Total Protein Albumin Globulin Albumin/Globulin Ratio Triglycerides Cholesterol LDL Cholesterol, Calc HDL Cholesterol Cholesterol/HDL Ratio Lipase Procalcitonin TSH Ur Collection Type Urine Color Urine Clarity Urine pH Ur Specific [place] Urine Protein Urine Glucose (UA) Urine Ketones Urine Blood Urine Nitrite Urine Bilirubin Urine Urobilinogen (Auto) Ur Leukocyte Esterase Urine RBC Urine WBC Ur Squamous Epith Cells Urine Bacteria Ur Culture Indicated? Urine Opiates Screen Urine Fentanyl Screen Ur Barbiturates Screen U Amphetamin/Meth Scrn U Benzodiazepines Scrn U Cocaine Metab Screen U Marijuana (THC) Screen 04/04/25 04/05/25 04/05/25 23:52 01:20 04:25 WBC 8.1 RBC 5.02 Hgb 13.7 Hct 45.5 MCV 91 MCH 27.3 MCHC 30.1 L RDW Std Deviation 50.9 H Plt Count 168 Neut % (Auto) 91 H Lymph % (Auto) 7 L [place] % (Auto) 2 Eos % (Auto) 0 Baso % (Auto) 0 Neut # (Auto) 7.4 Lymph # (Auto) 0.6 L [place] # (Auto) 0.1 Eos # (Auto) 0.0 Baso # (Auto) 0.0 Immature Gran # (Auto) 0.03 H Absolute Nucleated RBC 0.00 Immature Gran % 0 Nucleated RBC % 0 PT 12.9 H INR 1.2 D-Dimer Puncture Site Right Radial Right Radial ABG pH 7.53 H 7.52 H ABG pCO2 45 47 ABG pO2 87 D 60 L D ABG HCO3 37 H 38 H ABG O2 Saturation 99 H 94 ABG Base Excess 13 H 13 H VBG pH VBG pCO2 VBG pO2 VBG O2 Sat (Ravi) VBG Base Excess Oxygen Liter Flow FiO2 50 30 Sodium 146 H Potassium 3.6 D Chloride 98 Carbon Dioxide 35.4 H Anion Gap 13 BUN 26 H Creatinine 1.1 Estim Creat Clear Calc 72.6 eGFR > 60 BUN/Creatinine Ratio 24 H Glucose [address] Glu mg/dL 151 H Hemoglobin A1c 6.9 H Calculated Osmolality 299 H Lactic Acid Calcium 9.2 Corrected Calcium 9.6 Phosphorus 3.5 Magnesium 1.4 L Total Bilirubin 2.8 H D AST 12 ALT 8 L Alkaline Phosphatase 75 Total Creatine Kinase 39 D Troponin I < 0.020 B-Natriuretic Peptide Total Protein 6.2 Albumin 3.5 Globulin 2.7 Albumin/Globulin Ratio 1.3 Triglycerides 87 Cholesterol 77 L LDL Cholesterol, Calc 39 HDL Cholesterol 21 L Cholesterol/HDL Ratio 3.7 L Lipase Procalcitonin 0.07 TSH 1.35 Ur Collection Type Urine Color Urine Clarity Urine pH Ur Specific [place] Urine Protein Urine Glucose (UA) Urine Ketones Urine Blood Urine Nitrite Urine Bilirubin Urine Urobilinogen (Auto) Ur Leukocyte Esterase Urine RBC Urine WBC Ur Squamous Epith Cells Urine Bacteria Ur Culture Indicated? Urine Opiates Screen Urine Fentanyl Screen Ur Barbiturates Screen U Amphetamin/Meth Scrn U Benzodiazepines Scrn U Cocaine Metab Screen U Marijuana (THC) Screen 04/05/25 04:52 WBC RBC Hgb Hct MCV MCH MCHC RDW Std Deviation Plt Count Neut % (Auto) Lymph % (Auto) [place] % (Auto) Eos % (Auto) Baso % (Auto) Neut # (Auto) Lymph # (Auto) [place] # (Auto) Eos # (Auto) Baso # (Auto) Immature Gran # (Auto) Absolute Nucleated RBC Immature Gran % Nucleated RBC % PT INR D-Dimer Puncture Site Right Radial ABG pH 7.47 H ABG pCO2 50 H ABG pO2 60 L ABG HCO3 37 H ABG O2 Saturation 93 ABG Base Excess 11 H VBG pH VBG pCO2 VBG pO2 VBG O2 Sat (Ravi) VBG Base Excess Oxygen Liter Flow FiO2 21 Sodium Potassium Chloride Carbon Dioxide Anion Gap BUN Creatinine Estim Creat Clear Calc eGFR BUN/Creatinine Ratio Glucose Estimated Ave Glu mg/dL Hemoglobin A1c Calculated Osmolality Lactic Acid Calcium Corrected Calcium Phosphorus Magnesium Total Bilirubin AST ALT Alkaline Phosphatase Total Creatine Kinase Troponin I B-Natriuretic Peptide Total Protein Albumin Globulin Albumin/Globulin Ratio Triglycerides Cholesterol LDL Cholesterol, Calc HDL Cholesterol Cholesterol/HDL Ratio Lipase Procalcitonin TSH Ur Collection Type Urine Color Urine Clarity Urine pH Ur Specific [place] Urine Protein Urine Glucose (UA) Urine Ketones Urine Blood Urine Nitrite Urine Bilirubin Urine Urobilinogen (Auto) Ur Leukocyte Esterase Urine RBC Urine WBC Ur Squamous Epith Cells Urine Bacteria Ur Culture Indicated? Urine Opiates Screen Urine Fentanyl Screen Ur Barbiturates Screen U Amphetamin/Meth Scrn U Benzodiazepines Scrn U Cocaine Metab Screen U Marijuana (THC) Screen ABG Interpretation ABG results: 04/04/25 04/04/25 04/04/25 13:42 17:07 18:33 ABG pH 7.14 L* 7.20 L ABG pCO2 107 H* 111 H* ABG pO2 85 78 L ABG HCO3 36 H 39 H ABG O2 Saturation 94 92 ABG Base Excess 4 H 6 H VBG pH 7.48 VBG pCO2 50 VBG pO2 82 H VBG Base Excess 11 H 04/04/25 04/04/25 04/04/25 19:35 22:40 23:52 ABG pH 7.16 L* 7.59 H D 7.53 H ABG pCO2 113 H* 37 D 45 ABG pO2 53 L* D 194 H D 87 D ABG HCO3 40 H 36 H 37 H ABG O2 Saturation 78 L 101 H 99 H ABG Base Excess 7 H 13 H 13 H VBG pH VBG pCO2 VBG pO2 VBG Base Excess 04/05/25 04/05/25 01:20 04:52 ABG pH 7.52 H 7.47 H ABG pCO2 47 50 H ABG pO2 60 L D 60 L ABG HCO3 38 H 37 H ABG O2 Saturation 94 93 ABG Base Excess 13 H 11 H VBG pH VBG pCO2 VBG pO2 VBG Base Excess Quality Measures Quality Measures VTE prophylaxis Advance care planning discussed with:: sibling Assessment & Plan Assessment Current Active Medications: Generic Name Dose Route Start Last Admin Trade Name Vamsi PRN Reason Stop Dose Admin Acetaminophen 650 mg 04/04/25 17:27 Acetaminophen 325 Mg Tablet PO 05/04/25 17:26 Q6H PRN Fever >100 or pain 1-3 Apixaban 2.5 mg 04/05/25 09:00 04/05/25 09:51 Apixaban 2.5 Mg Tablet PO 05/05/25 08:59 2.5 mg QDAY JOSELUIS Administration Aspirin 81 mg 04/05/25 09:00 04/05/25 09:51 Aspirin Ec 81 Mg Tabec PO 05/05/25 08:59 81 mg QDAY JOSELUIS Administration Atorvastatin Calcium 20 mg 04/04/25 21:00 04/04/25 21:50 Atorvastatin Calcium 10 Mg Tablet PO 05/04/25 20:59 Not Given HS JOSELUIS Dextrose 25 ml 04/04/25 17:38 Dextrose 50%-Water Inj 50 Ml Syringe IV 05/04/25 17:37 Q15MIN PRN BG 50-70 responsive npo pt Dextrose 50 ml 04/04/25 17:38 Dextrose 50%-Water Inj 50 Ml Syringe IV 05/04/25 17:37 Q15MIN PRN BG <50 OR BG <70 & pt unresponsive Furosemide 20 mg 04/06/25 09:00 Furosemide Inj 10 Mg/Ml Vial 2 Ml IVP 05/06/25 08:59 DAILY JOSELUIS Glucagon 1 mg 04/04/25 17:38 Glucagon Inj 1 Mg Vial IM Q15MIN PRN BG <70, and no IV access Fentanyl Citrate 2,500 mcg in 250 mls @ 2.5 mls/hr 04/04/25 19:51 04/05/25 09:30 Sublimaze Inj 2,500 Mcg/250 Ml Bag IV 04/09/25 19:50 0 mcg/hr .Q24H PRN 0 mls/hr PER PROTOCOL Titration Protocol 25 MCG/HR Propofol 1,000 mg in 100 mls @ 3.6 mls/hr 04/04/25 21:07 04/05/25 07:40 Diprivan Ivpb IV 05/04/25 20:58 0 mcg/kg/min .Q24H PRN 0 mls/hr PER PROTOCOL Titration Protocol 5 MCG/KG/MIN Piperacillin Sod/Tazobactam 100 mls @ 200 mls/hr 04/05/25 03:00 04/05/25 03:11 Sod 4.5 gm/ Sodium Chloride IV 04/12/25 02:59 200 mls/hr Q6HR JOSELUSI Administration Magnesium Sulfate 4 gm in 50 mls @ 12.5 mls/hr 04/05/25 07:43 04/05/25 09:50 Magnesium Sulfate Ivpb IV 04/05/25 11:42 12.5 mls/hr X1 ONE Administration Magnesium Sulfate 2 gm in 50 mls @ 25 mls/hr 04/05/25 11:45 Magnesium Sulfate Ivpb IV 04/05/25 13:44 X1 ONE Azithromycin 500 mg/ Sodium 250 mls @ 250 mls/hr 04/05/25 08:56 04/05/25 09:53 Chloride IV 04/09/25 08:55 250 mls/hr QDAY JOSELUIS Administration Insulin Human Lispro 0 unit 04/05/25 00:45 04/05/25 06:00 Insulin Lispro (Admelog) 1 Unit/0.01 Ml Unit SC 05/05/25 00:44 1 unit Q6HR JOSELUIS Administration Protocol Ipratropium [place] 0.5 mg 04/05/25 11:00 Ipratropium Rt 0.5 Mg/ 2.5 Ml Nebu INH 05/05/25 10:59 Q4HRRT JOSELUIS Levalbuterol HCl 1.25 mg 04/05/25 11:00 Levalbuterol Rt 1.25 Mg/0.5 Ml Nebu INH 05/05/25 10:59 Q4HRRT JOSELUIS Methylprednisolone Sodium Succinate 60 mg 04/05/25 09:00 04/05/25 09:52 Methylprednisolone Sod Succ 62.5 Mg/Ml 2ml Vial IVP 04/12/25 08:59 60 mg QDAY JOSELUIS Administration Montelukast Sodium 10 mg 04/05/25 09:00 04/05/25 09:51 Montelukast Sodium 10 Mg Tablet PO 05/05/25 08:59 10 mg QDAY JOSELUIS Administration Ondansetron HCl 4 mg 04/04/25 17:32 Ondansetron Inj 2 Mg/Ml Inj 2 Ml IVP 05/04/25 17:31 Q6H PRN NAUSEA OR VOMITING Protocol Pantoprazole Sodium 40 mg 04/05/25 09:00 04/05/25 09:51 Pantoprazole Inj 40 Mg Vial IVP 05/05/25 08:59 40 mg QDAY JOSELUIS Administration Sodium Chloride 3 ml 04/04/25 17:27 Sodium Chloride Rt Zo 0.9% 3 Ml Nebu INH 05/04/25 17:26 PRN PRN SOLN Plan Summary: 34-year-old male with a past medical history of A-fib on Eliquis hypertension type 2 diabetes mellitus [id number] COPD presented to the ED with shortness of breath and leg swelling. Intubated and admitted to ICU after worsening hypercapnic acute respiratory failure. Neuro #Fall - Patient had a fall 2 weeks ago. - Patient is bradypenic and on Eliquis, concern for brain hemorrhage Diagnostic Work up: - CT on 04/04/2025 showed no interval acute hemorrhage, mass effect or midline shift Plan: - Continue to stay off of sedation, attempt to extubate in the a.m. #Hx of CVA. - Per family patient had stroke 3 years ago, no residual deficit, head CT unremarkable. Plan: - Continue home aspirin and atorvastatin. Cardiac #CHF exacerbation. #Fluid overload status. #Hypertension. - Patient has no history of CHF, was on amlodipine, losartan-hydrochlorothiazide and metoprolol for hypertension. Diagnostic Work Up: - Echo 04/05/2025 showed: Normal LV Size. Mild LVH. Estimated EF 65%. Mild RVE. RVSP 22mmHg. RAP 15mmHg. Severe SAM. Trace MR, TR. IVC Dilated with No Collapse. No Pericardial Effusion. - Patient has 2+ pitting edema over his extremities bilaterally. - Net -3.9 L morning of 04/05/2025. Plan: - Lasix 20 mg IV. - Holding home amlodipine and losartan. - Started metoprolol 50 mg twice daily. #Chronic Afib. - Patient has chronic Afib and is on metoprolol and Eliquis at home. Diagnostic Work Up: - EKG showed Afib, no RVR, morning of 04/05/2025. Plan: - Metoprolol 50 mg twice daily. - Eliquis 2.5 ,g twice daily, adjusting dose because patient does not meet parameters for 2.5 mg. - Titrate K to 4 and Mg to 2. Pulmonary #Acute hypoxic hypercapnic respiratory failure. #Bradypnea. #Primary respiratory acidosis with secondary metabolic alkalosis. #Mechanical ventilation. #Hx of MOUNIKA. #COPD - Patient continues to be hypercapnic though family members deny any history of COPD. - Patient continues to be bradypenic despite sedation weaning and hypercapnia. Consider secondary metabolic alkalosis as a cause. - Also consider magnitude of sedation as a cause contribution to bradypenia. - Patient does not appear to be air trapping, making active etiology less likely, reviewed flow loops on ventilator. Diagnostic Work Up: - Patient placed on SIMV volume control, VT 500 flow 40 RR 8 PEEP 5 FiO2 40 PS 10. - ABG 04/05/2025 pH 7.3, pCO2 74, pO2 64, HCO3 37, O2 sat 89. - Chest x-ray showed moderate vascular congestion along with bibasilar pneumonia 04/04/2025. Plan: - Steroids discontinued, low suspicion of COPD exacerbation. - Keep patient off of sedation. - Patient placed on SIMV volume control, VT 500 flow 40 RR 8 PEEP 5 FiO2 40 PS 10. - PT trial tomorrow once patient is more awake objectively. #Pneumonia Diagnostic Work Up: - Bibasilar pneumonia on chest x-ray 04/04/2025. Plan: - Azithromycin, Zosyn. - Follow-up sputum cultures. GI Plan: -Start trickle feeds. Renal #Hypomagnesemia Diagnostic workup: - Labs showed a magnesium of 1.4. Plan: - Replete magnesium to 2. #Hematuria Diagnostic workup: - 2+ protein, 3+ RBCs on urinalysis - BUN 26 creatinine 1.1. - Consider trauma from Bustamante catheter insertion. Plan: - Continue to monitor #Hypervolemic hypernatremia Diagnostic Work Up: - Sodium 146. Plan: - 300 mL free water flush. - 35 mL/h free water flushes. Infectious Disease #Pneumonia - See pulm. Endocrine #Type 2 DM [id number] - Patient takes metformin at home. Diagnostic Work Up: - A1c 6.6. - Glucose 167. Plan: - Bedside blood glucose every 6 hours. - Titrate sliding scale insulin. Heme #Normocytic normochromic anemia Diagnostic Work Up: - Hemoglobin 13.7 hematocrit 45.5 Plan: - Continue to monitor with morning CBCs MSK -No pertinent problems. Skin -No pertinent problems. Urogenital -No pertinent problems. Lines/Access - 3 peripheral IVs. Nutrition - NPO. Sedation/Analgesia -Off sedation. DVT Prophylaxis -Eliquis 5 mg daily. GI Prophylaxis -Protonix. Code Status -Full code. Disposition: Patient is off of sedation. Will attempt extubation tomorrow. Patient was seen and discussed with my attending Jose G Gomez M.D. and my senior resident Lauren Parry M.D. PGY-2. Montrell Peacock D.O. PGY-1.
[2025-04-05] MEDS: METOPROLOL TARTRATE 25 MG TABLET 50 MG PO ×2 (11:42→21:21)
[2025-04-05] MEDS: Magnesium Sulfate 2 GM Ivpb 2 GM/50 ML BAG IV (11:42)
[2025-04-05 12:22] LABS: Cocci Serology, IgM Negative (Negative)
[2025-04-05 13:22] LABS: Base Excess 7 (-3-3); HCO3 37 mEq/L (20-26); Inspired Oxygen, FIO2 40 %; O2 Saturation 89 % (91-98); PCO2 74 mmHg (32.0-48.0); PO2 64 mmHg (83-108); pH, Arterial 7.30 (7.35-7.45)
[2025-04-05 13:24] LABS: Allen Test Performed/OK; Puncture Site Right Radial
--- NOTE | 2025-04-05 15:17 | PC.SS ---
TICKET WORKER conducted bedside contact with the patient conduct initial assessment and to discuss discharge planning.? At bedside with patient was sister, Lizz Garnica.? Patient currently in ICU on mechanical ventilator.? Assessment information obtained from patient?s daughter.? Patient resides at home with spouse, Sahara Dalal .? Patient utilizes a walker at home to assist with ambulation on as needed basis.? Patient does not utilize home oxygen.? Patient possesses ability to complete ADL?s independently.? Patient?s surrogate medical decision maker is daughter, Blanca Garnica . Patient?s PCP is Dr. Echeverria.? Patient does not possess any specialty providers.? Patient possesses a history of diabetes, taking Meformin.? Patient diagnosed with sleep apnea. ?Patient does not possess a CPAP machine.? Per daughter, patient unable to tolerate overnight use of device.? Discharge plan is for the patient to return home at the time of discharge.? Family will provide transportation on behalf of the patient.? No discharge needs identified at current time.? No further intervention required at this time, social services specialist will be available to address any further concerns.? Next of Kin: Blanca Nahun D/C Plan: Home
--- NOTE | 2025-04-05 15:19 | PC.SS ---
HEAVY MACHINERY ASSEMBLER conducted phone contact with patient's spouse, Sahara Mulugeta ; to confirm patient's designated surrogate medical decision maker. Spouse, Sahara Mulugeta; confirmed that patient's surrogate medical decision maker is daughter, Blanca Garnica .
--- NOTE | 2025-04-05 15:22 | PC.SS ---
DOG SHOW JUDGE conducted phone contact with patient's spouse, Sahara Mulugeta ; to confirm patient's designated surrogate medical decision maker. Spouse, Sahara Dalal; confirmed that patient's surrogate medical decision maker is sister, Blanca Garnica .
--- NOTE | 2025-04-05 15:23 | PC.SS ---
BUSINESS REPORTING DEVELOPER conducted bedside contact with the patient conduct initial assessment and to discuss discharge planning.? At bedside with patient was sister, Lizz Garnica.? Patient currently in ICU on mechanical ventilator.? Assessment information obtained from patient?s sister.? Patient resides at home with spouse, Sahara Dalal .? Patient utilizes a walker at home to assist with ambulation on as needed basis.? Patient does not utilize home oxygen.? Patient possesses ability to complete ADL?s independently.? Patient?s surrogate medical decision maker is sister, Blanca Garnica . Patient?s PCP is Dr. Echeverria.? Patient does not possess any specialty providers.? Patient possesses a history of diabetes, taking Meformin.? Patient diagnosed with sleep apnea. ?Patient does not possess a CPAP machine.? Per daughter, patient unable to tolerate overnight use of device.? Discharge plan is for the patient to return home at the time of discharge.? Family will provide transportation on behalf of the patient.? No discharge needs identified at current time.? No further intervention required at this time, social work coordinator will be available to address any further concerns.? Next of Kin: Blanca Nahun D/C Plan: Home
--- NOTE | 2025-04-05 17:34 | ECHO_ITS ---
Transthoracic Echo Report Ht (in): 69 Wt (lb): 246 Exam Location: Echo Lab Status: Inpatient Curer [employer]: Leatha Castellanos Indications: Procedure Performed: BP: 120 / 71 HR: 88 Technical Quality: Adequate MEASUREMENTS (Male / Female) Normal Values 2D ECHO LV Diastolic Diameter PLAX 3.6 cm 4.2 - 5.9 / 3.9 - 5.3 cm LV Systolic Diameter PLAX 2.0 cm IVS Diastolic Thickness 1.3 cm 0.6 - 1.0 / 0.6 - 0.9 cm LVPW Diastolic Thickness 1.3 cm 0.6 - 1.0 / 0.6 - 0.9 cm LV Relative Wall Thickness 0.7 LVOT Diameter 2.1 cm LA Volume Index 72.8 cm?/m? 16 - 28 cm?/m? M-MODE AV Cusp Separation MM 1.6 cm DOPPLER AV Peak Velocity 135.3 cm/s AV Peak Gradient 7.3 mmHg LVOT Peak Velocity 84.9 cm/s LVOT Peak Gradient 2.9 mmHg AV Area Cont Eq pk 2.2 cm? TR Peak Velocity 237.2 cm/s TR Peak Gradient 22.5 mmHg PV Peak Velocity 91.9 cm/s PV Peak Gradient 3.4 mmHg FINDINGS Left Ventricle Normal left ventricular size and systolic function with no obvious regional wall motion abnormalities. Mild ventricular septal hypertorphy. Unable to determine diastology due to arrythmia. The ejection fraction is visually estimated at 65 %. Right Ventricle The right ventricle is mildly enlarged with normal systolic function. The estimated right ventricular systolic pressure, 22 mmHg. RAP 15mmHg. Left Atrium The left atrial cavity size is severely increased. Right Atrium The right atrial cavity size is severely increased. Atrial Septum The interatrial septum appears normal with no evidence of a shunt. Aorta The aorta is normal by two-dimensional, color flow and Doppler interrogation. Mitral Valve The mitral valve is normal by two-dimensional, color flow and Doppler interrogation. There is trace mitral regurgitation. Aortic Valve The aortic valve is trileaflet and normal by two-dimensional, color flow and Doppler interrogation. There is no significant aortic valve regurgitation. Tricuspid Valve The tricuspid valve is normal by two-dimensional, color flow and Doppler interrogation. There is trace tricuspid valve regurgitation. Pulmonic Valve The pulmonic valve is not well visualized. There is no significant pulmonic valve regurgitation. Vessels The pulmonary artery appears normal. The inferior vena cava is dialted without collapse. Pericardium The pericardium is normal by two-dimensional imaging. There is no significant pericardial effusion. CONCLUSIONS Indications: CHF Normal LV Size. Mild LVH. Estimated EF 65%. Mild RVE. RVSP 22mmHg. RAP 15mmHg. Severe SAM. Trace MR, TR. IVC Dilated with No Collapse. No Pericardial Effusion. Manuel Welch (Electronically Signed) Final Date: 05 April 2025 11:24
[2025-04-05] MEDS: ATORVASTATIN CALCIUM 10 MG TABLET 20 MG PO (21:20)
[2025-04-06] VITALS (30 sets, daily range): BP systolic 114–162; BP diastolic 69–92; PULSE 81–109; RESP 8–101; TEMP 36.5–36.9; O2SAT 92–99
[2025-04-06] MEDS: PIPER/TAZO INJ 4.5 GM in SODIUM CHLORIDE 0.9% (POP) 100 ML IV ×4 (00:25→19:09)
[2025-04-06] MEDS: INSULIN LISPRO (AdmeLOG) 1 UNIT/0.01 ML UNIT SC ×2 (00:31→05:43)
[2025-04-06] MEDS: LEVALBUTEROL RT 1.25 MG/0.5 ML NEBU INH ×3 (02:40→10:12)
[2025-04-06] MEDS: IPRATROPIUM RT 0.5 MG/ 2.5 ML NEBU INH ×3 (02:40→10:12)
[2025-04-06 04:10] LABS: Base Excess 10 (-3-3); HCO3 39 mEq/L (20-26); Inspired Oxygen, FIO2 40 %; O2 Saturation 98 % (91-98); PCO2 70 mmHg (32.0-48.0); PO2 101 mmHg (83-108); pH, Arterial 7.36 (7.35-7.45)
[2025-04-06 04:12] LABS: Allen Test Performed/OK; Puncture Site Right Radial
--- NOTE | 2025-04-06 05:09 | XR_ITS ---
Examination: AP chest single view Technique one AP portable upright chest single view Date and time: April 06, 2025 0654 hours Comparison April 04, 2025 INDICATIONS: Acute encephalopathy, altered mental status, hypoxic respiratory failure this week FINDINGS: Endotracheal tube tip 5.6 cm above morro. Pneumonia left base obscuring detail left hemidiaphragm and mild pneumonia right base Left internal jugular line overlies the SVC Orogastric tube in the stomach IMPRESSION: Bibasilar pneumonia, consider aspiration pneumonia
[2025-04-06 06:19] LABS: Basophils # (Auto) 0.0 Thou/mm3 (0.0-0.2); Basophils % (Auto) 0 % (0-2.5); Eosinophils # (Auto) 0.0 Thou/mm3 (0.0-0.5); Eosinophils % (Auto) 0 % (0-10); Hematocrit 46.8 % (41.0-53.0); Hemoglobin 14.0 g/dL (13.5-16.0); Immature Granulocytes Auto 0.05 Thou/mm3 (0.00-0.00); Lymphocytes # (Auto) 0.4 Thou/mm3 (1.0-4.8); Lymphocytes % (Auto) 4 % (10-50); Mean Corpuscular HGB Conc 29.9 g/dl (31.0-37.0); Mean Corpuscular Hemoglobin 27.0 pg (25.0-35.0); Mean Corpuscular Volume 90 fL (80-100); Monocytes # (Auto) 0.8 Thou/mm3 (0.0-0.8); Monocytes % (Auto) 7 % (0-12); Neutrophils # (Auto) 10.2 Thou/mm3 (1.8-7.7); Neutrophils % (Auto) 89 % (37-80); Nucleated Red Blood Cell # 0.00 Thou/mm3 (0.00-0.00); Nucleated Red Blood Cell % 0 /100 WBC (0); Platelet Count 194 Thou/mm3 (140-440); RDW Standard Deviation 52.3 fL (35.1-43.9); Red Blood Count 5.18 Miln/mm3 (4.50-5.90); White Blood Count 11.4 Thou/mm3 (3.8-10.6)
[2025-04-06 06:46] LABS: Alanine Aminotransferase < 7 U/L (10-49); Albumin, Serum 3.5 gm/dL (3.4-4.8); Albumin/Globulin Ratio 1.3 (1.2-2.2); Alkaline Phosphatase 65 U/L (46-116); Anion Gap 9 (7-16); Aspartate Amino Transferase < 10 U/L (0-34); BUN/Creatinine Ratio 25 Ratio (12-20); Bilirubin,Total 1.5 mg/dL (0.3-1.2); Blood Urea Nitrogen 35 mg/dL (9-23); Calcium 8.7 mg/dL (8.3-10.6); Calcium (Corrected) 9.1 mg/dL (8.5-10.1); Carbon Dioxide 36.9 mMol/L (20.0-31.0); Chloride 99 mMol/L (98-107); Creatinine (Component) 1.4 mg/dL (0.6-1.3); Estimated Creatinine Clearance 56.5 mL/min (>60); Globulin 2.7 gm/dL (2.3-3.5); Glucose 198 mg/dL (74-106); Magnesium 2.2 mg/dL (1.6-2.6); Osmolality,Calculated 302 (275-295); Phosphorous 5.0 mg/dL (2.4-5.1); Potassium 4.0 mMol/L (3.4-5.1); Sodium 145 mMol/L (136-145); Total Protein 6.2 gm/dL (5.7-8.2); eGFR 52 See Note
[2025-04-06 08:05] LABS: Ammonia 15 uMol/L (11-32)
[2025-04-06] MEDS: AZITHROMYCIN INJ 500 MG in SODIUM CHLORIDE 0.9% 250 ML 250 ML 250 MG IV (09:26)
[2025-04-06] MEDS: MONTELUKAST SODIUM 10 MG TABLET PO (09:26)
[2025-04-06] MEDS: ASPIRIN EC 81 MG TABEC PO (09:26)
[2025-04-06] MEDS: METOPROLOL TARTRATE 25 MG TABLET 50 MG PO (09:26)
[2025-04-06] MEDS: APIXABAN 2.5 MG TABLET PO ×2 (09:26→21:17)
--- NOTE | 2025-04-06 10:24 | EKG_ITS ---
[facility] Test Date: 2025-04-06 Pat Name: DESEAN MCCORMACK Department: Room: S256A Gender: Male Manager Of Compensation: EMILIO : 1950 Requested By: Lauren Parry Order Number: [id number] Reading MD: Lauren Parry Measurements Intervals [place] Rate: 86 P: [place]: QRS: 7 QRSD: 94 T: 2 QT: 390 QTc: 467 Interpretive Statements ATRIAL FIBRILLATION LOW QRS VOLTAGE IN EXTREMITY LEADS ABNORMAL RHYTHM ECG Compared to ECG 04/05/2025 09:06:53 Low QRS voltage now present T-wave abnormality no longer present Possible ischemia no longer present /store/S0/[id number]/[id number].pdf
--- NOTE | 2025-04-06 10:25 | XR_ITS ---
Examination: Abdomen sonogram, Limited Date and time of exam: April 06, 2025 1046 hours INDICATIONS: Diagnosis of hepatomegaly 18.7 cm on ultrasound May 11, 2024 Technique: Real-time vidal scale transabdominal sonographic images of the upper abdomen obtained. Findings: Negative for gallstones Gallbladder wall 0.38 cm no edema Common bile duct 0.5 cm no stones Pancreatic head 3.2 cm Liver 21.3 cm irregular contour fatty infiltration no focal liver lesions Normal hepatopedal portal venous flow Patent IVC IMPRESSION: Negative for cholelithiasis Borderline thickening gallbladder wall, clinical correlation advised, consider HIDA scan follow-up as clinically warranted Significant hepatomegaly, suspect primary hepatocellular disease, fatty infiltration, no focal liver lesions
--- NOTE | 2025-04-06 11:54 | ESPR_ITS ---
<Statement entered by Lauren Parry MD - 04/06/25 18:42> Patient was seen and examined at bedside. I agree on the assessment and plan on this note as documented by resident Montrell Peacock PGY1. Patient seen and examined at bedside in ICU, patient more alert and awake this morning, switched from SIMV VC to pressure support, alert oriented following commands objectively meets criteria for extubation, ventilator weaning parameters done, RSBI less than 105,NIF -40, tolerated SBT well, meets criteria for extubation. Patient was successfully extubated, passed bedside swallow screen by nurse, started on diet. Called patient's primary care physician Dr. Echeverria regarding his Eliquis dosing, he reported that patient is on Eliquis for A-fib with RVR, reported he is dosing it at 2.5 BID due to renal dysfunction and concern of bleeding. Per his office patient has history of Gout, Polyneuropathy, BPH + LUTS, Asthma, Fatty Liver, HTN, Overactive Badder. Hold lasix, has diuretic holiday, Continue metoprolol 50mg Qday for A fib. Ordered further workup for Hyperbilirubinemia. Stable to be downgraded to floors, recommend BIPAP QHS. Case discussed with attending Dr. Jossue Parry MD PGY-2 Documentation for date of: 04/06/25 Subjective Subjective Interval history: Patient is a 74 years old male with PMH of non-insulin dependent type II DM, HTN, chronic Afib on Eliquis, obstructive sleep apnea on Trelegy, COPD on home oxygen, Hx of CVA who came initially on 04/04/2025 for an evaluation of acute encephalopathy. He was worked up showing acute hypoxic hypercapnic respiratory failure and was started on BiPAP in the ED. Several hours later his repeat ABG showed worsening of respiratory acidosis and hypercapnia. Patient's mentation also worsened significantly and he became unresponsive. Decision was made to intubate patient due to worsening of acute hypoxic hypercapnic respiratory failure and inability to protect airways and upgrade him to ICU. Per family patient was getting pneumonia frequently over the last 2 years. Family also reported his RLE was significantly swollen over the last several days. Patient was put FULL CODE at the time of admission as his mentation was poor. could not be reached at the time, and family (sisters) did want full treatment. No fever, chills, chest pain, dysuria was reported by family. 04/05/2025: Patient was weaned off of sedation this morning, wake alert and following commands, patient placed on pressure support of 10, RSBI is less than 105, NIF - 40. However on objective exam patient noted to have episodes of apnea and lobe minute ventilation, off of extubation for now as patient is bradypnic. Patient placed on SIMV volume control, VT 500 flow 40 RR 8 PEEP 5 FiO2 40 PS 10. ET of the head was negative for any hemorrhage or acute cerebrovascular event, patient was on heavy sedation with a RASS score of -4, likely contributing to his bradypnea. Patient is currently in A-fib morning of 03/27/2025 with rate of 100- 110. Metoprolol 50 mg BID. Holding home amlodipine and losartan. Will continue Eliquis 2.5 twice daily for DVT prophylaxis and A-fib. Steroids discontinued. Lasix switched from 40 mg to 20 mg. Continue to keep patient off of sedation. Will attempt to extubate again in the a.m. 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 04/06/2025: The patient was objectively following commands, more alert compared to yesterday, based on SBT, NIF was -40, RSBI was 22, patient met criteria for extubation and was extubated successfully. EKG showed irregular rhythm, rate controlled A-fib. Metoprolol 50 mg p.o. twice daily and Eliquis 2.5 twice daily for A-fib. Liver ultrasound was negative for cholelithiasis, showed borderline thickening of the gallbladder wall, significant hepatomegaly, fatty infiltration, no focal liver lesions. Labs showed elevated total bilirubin and indirect bilirubin. Azithromycin and Zosyn continued for pneumonia, steroids DCed as acute COPD exacerbation unlikely. Diuretic holiday due to . Diet ordered, patient passed swallow study post-extubation. Exam Vital Signs Temp Pulse Resp BP Pulse Ox O2 Del Method O2 Flow Rate 98.5 F 91 14 146/92 H 99 Mechanical Ventilation 2 04/06/25 08:00 04/06/25 10:14 04/06/25 10:14 04/06/25 10:00 04/06/25 10:14 04/06/25 08:00 04/06/25 10:41 FiO2 30 04/06/25 09:58 Narrative Exam General: Awake and in no acute distress. Conversational and non-toxic appearing. Neurologic: GCS 15. Alert and oriented x3, no gross neurological deficit, and patient able to move all 4 extremities. HEENT: Normocephalic, atraumatic, mucous membranes moist. Pupils reactive to light. Heart: Irregular rhythm, rate in the 90s. Lungs: Clear to auscultation bilaterally with no wheezing or crackles. Abdomen: Obese soft, nondistended, nontender. No guarding or rebound tenderness. Surgical scar greater than 5 cm in the right lower quadrant from previous appendectomy. Surgical scar inferior to the umbilicus less than 5 cm in length from previous lithotripsy Extremities: 2+ pitting edema bilaterally in the lower extremities up to the knee. 2+ radial and dorsalis pedis pulses bilaterally. Skin: Warm. Dry. Venous stasis dermatitis in the lower extremities bilaterally below the knee. Objective Labs 04/07/25 04:41 04/07/25 04:41 Labs: Laboratory Results - last 24 hr 04/05/25 04/05/25 04/06/25 04:25 13:02 03:55 WBC RBC Hgb Hct MCV MCH MCHC RDW Std Deviation Plt Count Neut % (Auto) Lymph % (Auto) Addison % (Auto) Eos % (Auto) Baso % (Auto) Neut # (Auto) Lymph # (Auto) Addison # (Auto) Eos # (Auto) Baso # (Auto) Immature Gran # (Auto) Absolute Nucleated RBC Immature Gran % Nucleated RBC % Puncture Site Right Radial Right Radial ABG pH 7.30 L D 7.36 ABG pCO2 74 H* D 70 H ABG pO2 64 L 101 D ABG HCO3 37 H 39 H ABG O2 Saturation 89 L 98 ABG Base Excess 7 H 10 H FiO2 40 40 Sodium Potassium Chloride Carbon Dioxide Anion Gap BUN Creatinine Estim Creat Clear Calc eGFR BUN/Creatinine Ratio Glucose Calculated Osmolality Calcium Corrected Calcium Phosphorus Magnesium Total Bilirubin AST ALT Alkaline Phosphatase Ammonia Total Protein Albumin Globulin Albumin/Globulin Ratio Coccidioides IgM Ab Negative 04/06/25 04/06/25 05:24 07:20 WBC 11.4 H D RBC 5.18 Hgb 14.0 Hct 46.8 MCV 90 MCH 27.0 MCHC 29.9 L RDW Std Deviation 52.3 H Plt Count 194 Neut % (Auto) 89 H Lymph % (Auto) 4 L Addison % (Auto) 7 Eos % (Auto) 0 Baso % (Auto) 0 Neut # (Auto) 10.2 H Lymph # (Auto) 0.4 L Addison # (Auto) 0.8 Eos # (Auto) 0.0 Baso # (Auto) 0.0 Immature Gran # (Auto) 0.05 H Absolute Nucleated RBC 0.00 Immature Gran % 0 Nucleated RBC % 0 Puncture Site ABG pH ABG pCO2 ABG pO2 ABG HCO3 ABG O2 Saturation ABG Base Excess FiO2 Sodium 145 Potassium 4.0 Chloride 99 Carbon Dioxide 36.9 H Anion Gap 9 BUN 35 H Creatinine 1.4 H Estim Creat Clear Calc 56.5 L eGFR 52 L BUN/Creatinine Ratio 25 H Glucose 198 H Calculated Osmolality 302 H Calcium 8.7 Corrected Calcium 9.1 Phosphorus 5.0 Magnesium 2.2 Total Bilirubin 1.5 H D AST < 10 ALT < 7 L Alkaline Phosphatase 65 Ammonia 15 Total Protein 6.2 Albumin 3.5 Globulin 2.7 Albumin/Globulin Ratio 1.3 Coccidioides IgM Ab ABG Interpretation ABG results: 04/04/25 04/04/25 04/04/25 13:42 17:07 18:33 ABG pH 7.14 L* 7.20 L ABG pCO2 107 H* 111 H* ABG pO2 85 78 L ABG HCO3 36 H 39 H ABG O2 Saturation 94 92 ABG Base Excess 4 H 6 H VBG pH 7.48 VBG pCO2 50 VBG pO2 82 H VBG Base Excess 11 H 04/04/25 04/04/25 04/04/25 19:35 22:40 23:52 ABG pH 7.16 L* 7.59 H D 7.53 H ABG pCO2 113 H* 37 D 45 ABG pO2 53 L* D 194 H D 87 D ABG HCO3 40 H 36 H 37 H ABG O2 Saturation 78 L 101 H 99 H ABG Base Excess 7 H 13 H 13 H VBG pH VBG pCO2 VBG pO2 VBG Base Excess 04/05/25 04/05/25 04/05/25 01:20 04:52 13:02 ABG pH 7.52 H 7.47 H 7.30 L D ABG pCO2 47 50 H 74 H* D ABG pO2 60 L D 60 L 64 L ABG HCO3 38 H 37 H 37 H ABG O2 Saturation 94 93 89 L ABG Base Excess 13 H 11 H 7 H VBG pH VBG pCO2 VBG pO2 VBG Base Excess 04/06/25 03:55 ABG pH 7.36 ABG pCO2 70 H ABG pO2 101 D ABG HCO3 39 H ABG O2 Saturation 98 ABG Base Excess 10 H VBG pH VBG pCO2 VBG pO2 VBG Base Excess Quality Measures Quality Measures VTE prophylaxis Advance care planning discussed with:: sibling (Sister) Assessment & Plan Assessment Current Active Medications: Generic Name Dose Route Start Last Admin Trade Name Freq PRN Reason Stop Dose Admin Acetaminophen 650 mg 04/04/25 17:27 Acetaminophen 325 Mg Tablet PO 05/04/25 17:26 Q6H PRN Fever >100 or pain 1-3 Apixaban 2.5 mg 04/05/25 21:00 04/06/25 09:26 Apixaban 2.5 Mg Tablet PO 05/05/25 20:59 2.5 mg BID JOSELUIS Administration Aspirin 81 mg 04/05/25 09:00 04/06/25 09:26 Aspirin Ec 81 Mg Tabec PO 05/05/25 08:59 81 mg QDAY JOSELUIS Administration Atorvastatin Calcium 20 mg 04/04/25 21:00 04/05/25 21:20 Atorvastatin Calcium 10 Mg Tablet PO 05/04/25 20:59 20 mg HS JOSELUIS Administration Dextrose 25 ml 04/04/25 17:38 Dextrose 50%-Water Inj 50 Ml Syringe IV 05/04/25 17:37 Q15MIN PRN BG 50-70 responsive npo pt Dextrose 50 ml 04/04/25 17:38 Dextrose 50%-Water Inj 50 Ml Syringe IV 05/04/25 17:37 Q15MIN PRN BG <50 OR BG <70 & pt unresponsive Furosemide 20 mg 04/06/25 09:00 Furosemide Inj 10 Mg/Ml Vial 2 Ml IVP 05/06/25 08:59 DAILY JOSELUIS Glucagon 1 mg 04/04/25 17:38 Glucagon Inj 1 Mg Vial IM Q15MIN PRN BG <70, and no IV access Fentanyl Citrate 2,500 mcg in 250 mls @ 2.5 mls/hr 04/04/25 19:51 04/05/25 09:30 Sublimaze Inj 2,500 Mcg/250 Ml Bag IV 04/09/25 19:50 0 mcg/hr .Q24H PRN 0 mls/hr PER PROTOCOL Titration Protocol 25 MCG/HR Propofol 1,000 mg in 100 mls @ 3.6 mls/hr 04/04/25 21:07 04/05/25 07:40 Diprivan Ivpb IV 05/04/25 20:58 0 mcg/kg/min .Q24H PRN 0 mls/hr PER PROTOCOL Titration Protocol 5 MCG/KG/MIN Piperacillin Sod/Tazobactam 100 mls @ 200 mls/hr 04/05/25 03:00 04/06/25 05:45 Sod 4.5 gm/ Sodium Chloride IV 04/12/25 02:59 200 mls/hr Q6HR JOSELUIS Administration Azithromycin 500 mg/ Sodium 250 mls @ 250 mls/hr 04/05/25 08:56 04/06/25 09:26 Chloride IV 04/09/25 08:55 250 mls/hr QDAY JOSELUIS Administration Insulin Glargine 5 unit 04/06/25 21:00 Insulin Glargine (Lantus) 5 Unit/0.05 Ml (Per 5 Units) SC 05/06/25 20:59 HS JOSELUIS Insulin Human Lispro 0 unit 04/05/25 00:45 04/06/25 05:43 Insulin Lispro (Admelog) 1 Unit/0.01 Ml Unit SC 05/05/25 00:44 1 unit Q6HR JOSELUIS Administration Protocol Ipratropium Burke 0.5 mg 04/06/25 10:28 Ipratropium Rt 0.5 Mg/ 2.5 Ml Nebu INH 05/05/25 10:59 Q4HRRT PRN SOB/Wheezing Levalbuterol HCl 1.25 mg 04/06/25 10:28 Levalbuterol Rt 1.25 Mg/0.5 Ml Nebu INH 05/05/25 10:59 Q4HRRT PRN SOB/Wheezing Metoprolol Tartrate 50 mg 04/05/25 21:00 04/06/25 09:26 Metoprolol Tartrate 25 Mg Tablet PO 05/05/25 20:59 50 mg BID JOSELUIS Administration Montelukast Sodium 10 mg 04/05/25 09:00 04/06/25 09:26 Montelukast Sodium 10 Mg Tablet PO 05/05/25 08:59 10 mg QDAY JOSELUIS Administration Ondansetron HCl 4 mg 04/04/25 17:32 Ondansetron Inj 2 Mg/Ml Inj 2 Ml IVP 05/04/25 17:31 Q6H PRN NAUSEA OR VOMITING Protocol Pantoprazole Sodium 40 mg 04/05/25 09:00 04/06/25 09:25 Pantoprazole Inj 40 Mg Vial IVP 05/05/25 08:59 40 mg QDAY JOSELUIS Administration Sodium Chloride 3 ml 04/04/25 17:27 Sodium Chloride Rt Zo 0.9% 3 Ml Nebu INH 05/04/25 17:26 PRN PRN SOLN Plan Summary: 74-year-old male with past medical history A-fib on Eliquis, hypertension, type 2 diabetes mellitus [id number], obstructive sleep apnea who presented to the ED 04/04/2025 with shortness of breath. He was started on BiPAP but deteriorated with worsening respiratory acidosis and hypercapnia due to intubation and admission to the ICU. Neuro #Hx Fall #Family history of Parkinson's #Tremor Differential diagnosis: - Consider new onset seizures due to x-ray findings on admission showing left basilar pneumonia possibly due to aspiration - Consider early onset Parkinson's due to tremor on nose to finger exam - Consider narcolepsy due to patient falling asleep at random times during the day and after certain activities for the patient and family Diagnostic Work up: - Per family and patient, patient falls asleep at random times during the day and after and during certain activities. Patient also admits to spastic movements in the upper extremities. - Patient had a fall 2 weeks ago. - Patient is bradypenic and on Eliquis, concern for brain hemorrhage, CT on 04/04/2025 showed no interval acute hemorrhage, mass effect or midline shift - Patient's father had Parkinson's - Patient had a hand tremor on [id number] test Plan: - Consider follow-up outpatient with neurology #Hx of CVA. - Per family patient had stroke 3 years ago, no residual deficit, head CT unremarkable. Plan: - Continue home aspirin and atorvastatin. Cardiac #CHF exacerbation. #Heart failure with preserved ejection fraction, EF 65% #Fluid overload status. #Hypertension. - Patient has no history of CHF, was on amlodipine, losartan-hydrochlorothiazide and metoprolol for hypertension. Diagnostic Work Up: - Echo 04/05/2025 showed: Normal LV Size. Mild LVH. Estimated EF 65%. Mild RVE. RVSP 22mmHg. RAP 15mmHg. Severe SAM. Trace MR, TR. IVC Dilated with No Collapse. No Pericardial Effusion. - Patient has 2+ pitting edema over his extremities bilaterally. - Net +0.5 L morning of 04/06/2025 Plan: - Lasix holiday 04/06/2025 - Holding home amlodipine and losartan. - Continue metoprolol 50 mg twice daily. #Afib, currently rate controlled. - Patient has chronic Afib and is on metoprolol and Eliquis at home. Diagnostic Work Up: - EKG morning of 04/06/2025 showed rate controlled A-fib, irregular rhythm low QRS voltage in extremity leads -Per echocardiogram patient has bilateral atrial enlargement Plan: - Metoprolol 50 mg twice daily. - Per patient's PCP Dr. Echeverria, patient had a nonspecific bleeding episode and renal dysfunction, prompting treatment with 2.5 mg Eliquis, will continue Pulmonary #Acute hypoxic hypercapnic respiratory failure. #Hx Asthma #Primary respiratory acidosis with secondary metabolic alkalosis. #Mechanical ventilation. #Hx of MOUNIKA. - Patient's hypercapnia was improving with end-tidal CO2 in the low 60s prior to extubation, RSBI 22 - Patient denies any history of COPD Differentials: -Consider central sleep apnea, asthma, pneumonia, related to hypercapnia Diagnostic Work Up: - ABG 04/06/2025 showed pH 7.36, pCO2 70, [id number], HCO3 39. - Chest x-ray showed moderate vascular congestion along with bibasilar pneumonia 04/04/2025. Plan: - Patient extubated - Monitor morning ABGs -Titrate nasal cannula oxygen flow with O2 saturation - Steroids discontinued 04/05/2025 low suspicion of COPD exacerbation - Holding montelukast, may be contributing to lethargy #Pneumonia Diagnostic Work Up: - Bibasilar pneumonia on chest x-ray 04/04/2025. Plan: - Azithromycin, Zosyn. - Follow-up sputum cultures. GI #Hepatomegaly #Hyperbilirubinemia Differential diagnosis: - Consider liver dysfunction in relation to decreasing mentation on day of admission in combination with CT findings - Consider Windsor syndrome in the setting of increased indirect bilirubin, hepatomegaly, and plan of mentation on day of admission in the setting of acute respiratory distress Diagnostic workup: - CT demonstrated hepatomegaly 04/04/2025 - Total bilirubin 1.5 down from 2.8, direct bilirubin 0.6 04/06/2025 - Calculated indirect bilirubin is 0.9, high end of normal range - Liver ultrasound 04/06/2025 was negative for cholelithiasis, showed borderline thickening of the gallbladder wall, hepatomegaly, possible fatty infiltration, no focal liver lesions Plan: - Monitor bilirubin - Follow-up outpatient GI Renal #Hypomagnesemia (resolved) Diagnostic workup: - Labs showed a magnesium of 2.2 Plan: - Continue to monitor with morning labs #Hematuria Diagnostic workup: - 2+ protein, 3+ RBCs on urinalysis - Consider trauma from Bustamante catheter insertion. Plan: - Continue to monitor - Zosyn on board for pneumonia, should cover gram-negative UTI however low likelihood #Hypervolemic Hypernatremia Diagnostic Work Up: - Sodium 145 morning of 04/06/2025 Differential diagnosis: - Consider relation to diuretic use, elevated serum Na may be due to a faster speed at which water is eliminated with diuretic use Plan: - Diuretic holiday, resume Lasix in a.m. - Monitor ins and outs - Keep Na 150 or below # Diagnostic workup: -BUN 35 from 26, creatinine 1.4 from 1.1, 04/06/2025 Differential diagnosis: - Though prerenal azotemia is reflected in the greater than 20:1 ratio of BUN to creatinine, low likelihood due to fluid overload status, edema on physical exam - More likely due to diuretic use Plan: - Diuretic holiday 04/06/2025 - Continue to monitor urine output Infectious Disease #Pneumonia - See pulm. Endocrine #Type 2 DM [id number] - Patient takes metformin at home. Diagnostic Work Up: - A1c 6.6. - Glucose 198 04/06/2025. Plan: - Bedside blood glucose every 6 hours. - Lantus 5mg HS Heme #Normocytic normochromic anemia Diagnostic Work Up: - Hemoglobin 14 hematocrit 46.8 Plan: - Continue to monitor with morning CBCs MSK -No pertinent problems. Skin -No pertinent problems. Urogenital -No pertinent problems. Lines/Access - 3 peripheral IVs. Nutrition - NPO. Sedation/Analgesia -Off sedation. DVT Prophylaxis -Eliquis 2.5 mg twice daily. GI Prophylaxis -Protonix. Code Status -Full code. Disposition: Patient is extubated. Downgrade to tele. Patient was seen and discussed with my attending physician Dr. Claire Marcum M.D. and my senior resident Dr. Lauren Parry M.D. PGY?2. Montrell Peacock D.O. PGY-1. Attending Provider Attestation/Addendum Patient seen and examined with resident. Agree with above. In brief is a 74-year-old gentleman who was admitted to the hospital on 04 April. He required intubation due to CO2 retention. There was a question regarding central apnea. Today the patient is awake alert and cooperative with the exam. He has a GCS of 11T. There appears to be no acute distress lungs are clear to auscultation heart rate is regular and rhythmic, no signs of distress abdomen is soft, no focal neurological deficits, pulses palpable, no mottling, no clubbing. Today the patient appears to have good gas exchange with a blood gas that shows chronic respiratory acidosis with compensatory metabolic alkalosis. The patient is known to be noncompliant with his CPAP device at home. He was extubated to room air and doing well. In the evening it was decided that he could be downgraded to telemetry. Recommendations were for ongoing use of his CPAP at night. He had an echo performed on the which showed severe biatrial enlargement with IVC dilation. He has been diuresed during his stay. Overall he was improved and downgraded. Case discussed with ICU team Labs and imaging reviewed Approximately 40 critical care minutes required for evaluation, exam, review, intervention, discussion formulation of plan of care for this critically ill patient who was intubated on mechanical ventilation with chronic respiratory failure. Case is also discussed with family at bedside.
[2025-04-06 13:21] LABS: Cocci Serology, IgG Negative (Negative)
--- NOTE | 2025-04-06 14:40 | PC.SS ---
SS update: Patient was extubated this morning. EKG and liver ultrasound completed.
[2025-04-06 14:56] LABS: Bilirubin,Direct 0.6 mg/dL (0.0-0.3)
[2025-04-06 15:09] LABS: Hepatitis B Core Antibody IgM Non Reactive (Non React); Hepatitis B Surface Ab NonReact(Not Immune) (Immune); Hepatitis B Surface Antigen Non Reactive (Non React); Hepatitis C Antibody Non Reactive (Non React)
--- NOTE | 2025-04-06 17:32 | PD.RESPRO ---
Documentation for date of: 04/06/25 Subjective Subjective Interval history: Patient examined at bedside today. No acute overnight events. Patient reports that he remembers what happened and he was intubated for respiratory failure. He says that he was not compliant with his CPAP and that he has a history of obstructive sleep apnea. He reports that he wants to continue with intubation if needed or if he decompensates. He has no other complaints at this time. Denies any chest pain or shortness of breath. Exam Vital Signs Temp Pulse Resp BP Pulse Ox O2 Del Method O2 Flow Rate 97.7 F 105 H 20 129/83 94 L Nasal Cannula 2 04/06/25 15:00 04/06/25 16:00 04/06/25 16:00 04/06/25 16:00 04/06/25 16:00 04/06/25 15:00 04/06/25 15:00 FiO2 30 04/06/25 09:58 Narrative Exam General: AAOx3, NAD, a bit lethargic, obese male HEENT: Moist mucous membranes, conjunctiva clear, EOMI, PERRLA, poor dentition Cardiovascular: S1, S2, radial pulses +2 bilat, irregularly irregular, ejection systolic murmur possible heard Pulmonary: CTAB bilat no cough, no wheezing GI: No tenderness to light or deep palpitation, no guarding, rigidity, rebound tenderness or distension Extremities: +3 pitting edema in LE bilat, dorsalis pedis pulses +2 bilaterally Neuro: AAOx3, no focal motor or sensory deficits in the UE or LE bilat Psych: Good judgement, thought and behavior. Cooperative Objective Labs 04/07/25 04:41 04/07/25 04:41 Labs: Laboratory Results - last 24 hr 04/05/25 04/06/25 04/06/25 04:25 03:55 05:24 WBC 11.4 H D RBC 5.18 Hgb 14.0 Hct 46.8 MCV 90 MCH 27.0 MCHC 29.9 L RDW Std Deviation 52.3 H Plt Count 194 Neut % (Auto) 89 H Lymph % (Auto) 4 L [place] % (Auto) 7 Eos % (Auto) 0 Baso % (Auto) 0 Neut # (Auto) 10.2 H Lymph # (Auto) 0.4 L [place] # (Auto) 0.8 Eos # (Auto) 0.0 Baso # (Auto) 0.0 Immature Gran # (Auto) 0.05 H Absolute Nucleated RBC 0.00 Immature Gran % 0 Nucleated RBC % 0 Puncture Site Right Radial ABG pH 7.36 ABG pCO2 70 H ABG pO2 101 D ABG HCO3 39 H ABG O2 Saturation 98 ABG Base Excess 10 H FiO2 40 Sodium 145 Potassium 4.0 Chloride 99 Carbon Dioxide 36.9 H Anion Gap 9 BUN 35 H Creatinine 1.4 H Estim Creat Clear Calc 56.5 L eGFR 52 L BUN/Creatinine Ratio 25 H Glucose 198 H Calculated Osmolality 302 H Calcium 8.7 Corrected Calcium 9.1 Phosphorus 5.0 Magnesium 2.2 Total Bilirubin 1.5 H D Direct Bilirubin AST < 10 ALT < 7 L Alkaline Phosphatase 65 Ammonia Total Protein 6.2 Albumin 3.5 Globulin 2.7 Albumin/Globulin Ratio 1.3 Coccidioides IgG Ab Negative Hep Bs Antigen Non Reactive Hep Bs Antibody NonReact(Not Immune) L Hep B Core IgM Ab Non Reactive Hepatitis C Antibody Non Reactive 04/06/25 07:20 WBC RBC Hgb Hct MCV MCH MCHC RDW Std Deviation Plt Count Neut % (Auto) Lymph % (Auto) [place] % (Auto) Eos % (Auto) Baso % (Auto) Neut # (Auto) Lymph # (Auto) [place] # (Auto) Eos # (Auto) Baso # (Auto) Immature Gran # (Auto) Absolute Nucleated RBC Immature Gran % Nucleated RBC % Puncture Site ABG pH ABG pCO2 ABG pO2 ABG HCO3 ABG O2 Saturation ABG Base Excess FiO2 Sodium Potassium Chloride Carbon Dioxide Anion Gap BUN Creatinine Estim Creat Clear Calc eGFR BUN/Creatinine Ratio Glucose Calculated Osmolality Calcium Corrected Calcium Phosphorus Magnesium Total Bilirubin Direct Bilirubin 0.6 H AST ALT Alkaline Phosphatase Ammonia 15 Total Protein Albumin Globulin Albumin/Globulin Ratio Coccidioides IgG Ab Hep Bs Antigen Hep Bs Antibody Hep B Core IgM Ab Hepatitis C Antibody ABG Interpretation ABG results: 04/04/25 04/04/25 04/04/25 13:42 17:07 18:33 ABG pH 7.14 L* 7.20 L ABG pCO2 107 H* 111 H* ABG pO2 85 78 L ABG HCO3 36 H 39 H ABG O2 Saturation 94 92 ABG Base Excess 4 H 6 H VBG pH 7.48 VBG pCO2 50 VBG pO2 82 H VBG Base Excess 11 H 07/06/2104/04/25 04/04/25 19:35 22:40 23:52 ABG pH 7.16 L* 7.59 H D 7.53 H ABG pCO2 113 H* 37 D 45 ABG pO2 53 L* D 194 H D 87 D ABG HCO3 40 H 36 H 37 H ABG O2 Saturation 78 L 101 H 99 H ABG Base Excess 7 H 13 H 13 H VBG pH VBG pCO2 VBG pO2 VBG Base Excess 04/05/25 04/05/25 04/05/25 01:20 04:52 13:02 ABG pH 7.52 H 7.47 H 7.30 L D ABG pCO2 47 50 H 74 H* D ABG pO2 60 L D 60 L 64 L ABG HCO3 38 H 37 H 37 H ABG O2 Saturation 94 93 89 L ABG Base Excess 13 H 11 H 7 H VBG pH VBG pCO2 VBG pO2 VBG Base Excess 04/06/25 03:55 ABG pH 7.36 ABG pCO2 70 H ABG pO2 101 D ABG HCO3 39 H ABG O2 Saturation 98 ABG Base Excess 10 H VBG pH VBG pCO2 VBG pO2 VBG Base Excess Quality Measures Quality Measures VTE prophylaxis Advance care planning discussed with:: patient Assessment & Plan Assessment Current Active Medications: Generic Name Dose Route Start Last Admin Trade Name Vamsi PRN Reason Stop Dose Admin Acetaminophen 650 mg 04/04/25 17:27 Acetaminophen 325 Mg Tablet PO 05/04/25 17:26 Q6H PRN Fever >100 or pain 1-3 Apixaban 2.5 mg 04/05/25 21:00 04/06/25 09:26 Apixaban 2.5 Mg Tablet PO 05/05/25 20:59 2.5 mg BID JOSELUIS Administration Aspirin 81 mg 04/05/25 09:00 04/06/25 09:26 Aspirin Ec 81 Mg Tabec PO 05/05/25 08:59 81 mg QDAY JOSELUIS Administration Atorvastatin Calcium 20 mg 04/04/25 21:00 04/05/25 21:20 Atorvastatin Calcium 10 Mg Tablet PO 05/04/25 20:59 20 mg HS JOSELUIS Administration Dextrose 25 ml 04/04/25 17:38 Dextrose 50%-Water Inj 50 Ml Syringe IV 05/04/25 17:37 Q15MIN PRN BG 50-70 responsive npo pt Dextrose 50 ml 04/04/25 17:38 Dextrose 50%-Water Inj 50 Ml Syringe IV 05/04/25 17:37 Q15MIN PRN BG <50 OR BG <70 & pt unresponsive Furosemide 20 mg 04/06/25 09:00 Furosemide Inj 10 Mg/Ml Vial 2 Ml IVP 05/06/25 08:59 DAILY JOSELUIS Glucagon 1 mg 04/04/25 17:38 Glucagon Inj 1 Mg Vial IM Q15MIN PRN BG <70, and no IV access Piperacillin Sod/Tazobactam 100 mls @ 200 mls/hr 04/05/25 03:00 04/06/25 15:28 Sod 4.5 gm/ Sodium Chloride IV 04/12/25 02:59 200 mls/hr Q6HR JOSELUIS Administration Azithromycin 500 mg/ Sodium 250 mls @ 250 mls/hr 04/05/25 08:56 04/06/25 09:26 Chloride IV 04/09/25 08:55 250 mls/hr QDAY JOSELUIS Administration Insulin Glargine 5 unit 04/06/25 21:00 Insulin Glargine (Lantus) 5 Unit/0.05 Ml (Per 5 Units) SC 05/06/25 20:59 HS [facility] Insulin Human Lispro 0 unit 04/05/25 00:45 04/06/25 17:26 Insulin Lispro (Admelog) 1 Unit/0.01 Ml Unit SC 05/05/25 00:44 Not Given Q6HR [facility] Protocol Ipratropium [place] 0.5 mg 04/06/25 10:28 Ipratropium Rt 0.5 Mg/ 2.5 Ml Nebu INH 05/05/25 10:59 Q4HRRT PRN SOB/Wheezing Levalbuterol HCl 1.25 mg 04/06/25 10:28 Levalbuterol Rt 1.25 Mg/0.5 Ml Nebu INH 05/05/25 10:59 Q4HRRT PRN SOB/Wheezing Metoprolol Tartrate 50 mg 04/05/25 21:00 04/06/25 09:26 Metoprolol Tartrate 25 Mg Tablet PO 05/05/25 20:59 50 mg BID JOSELUIS Administration Montelukast Sodium 10 mg 04/05/25 09:00 04/06/25 09:26 Montelukast Sodium 10 Mg Tablet PO 05/05/25 08:59 10 mg QDAY JOSELUIS Administration Ondansetron HCl 4 mg 04/04/25 17:32 Ondansetron Inj 2 Mg/Ml Inj 2 Ml IVP 05/04/25 17:31 Q6H PRN NAUSEA OR VOMITING Protocol Pantoprazole Sodium 40 mg 04/05/25 09:00 04/06/25 09:25 Pantoprazole Inj 40 Mg Vial IVP 05/05/25 08:59 40 mg QDAY JOSELUIS Administration Sodium Chloride 3 ml 04/04/25 17:27 Sodium Chloride Rt Zo 0.9% 3 Ml Nebu INH 05/04/25 17:26 PRN PRN SOLN Plan Assessment 74-year-old male with past medical history A-fib on Eliquis, hypertension, type 2 diabetes mellitus [id number], obstructive sleep apnea who presented to the ED 04/04/2025 with shortness of breath. He was started on BiPAP but deteriorated with worsening respiratory acidosis and hypercapnia due to intubation and admission to the ICU. Cardiac #CHF exacerbation. #Fluid overload status. #Hypertension. - Patient has no history of CHF, was on amlodipine, losartan-hydrochlorothiazide and metoprolol for hypertension. Diagnostic Work Up: - Echo 04/05/2025 showed: Normal LV Size. Mild LVH. Estimated EF 65%. Mild RVE. RVSP 22mmHg. RAP 15mmHg. Severe SAM. Trace MR, TR. IVC Dilated with No Collapse. No Pericardial Effusion. - Patient has 2+ pitting edema over his extremities bilaterally. - Net +0.5 L morning of 725 Plan: - Lasix holiday 04/06/2025 - Holding home amlodipine and losartan. - Continue metoprolol 50 mg twice daily. #Chronic Afib. - Patient has chronic Afib and is on metoprolol and Eliquis at home. Diagnostic Work Up: - EKG morning of 04/06/2025 showed rate controlled A-fib, irregular rhythm low QRS voltage in extremity leads Plan: - Metoprolol 50 mg twice daily. -Per patient's PCP Dr. Echeverria, patient had a nonspecific bleeding episode and , prompting treatment with 2.5 mg Eliquis, will continue - Keep mag and potassium above 2 and 4 respectively #Acute on chronic hypoxic hypercapnic respiratory failure. #Hx Asthma #Bradypnea. #Primary respiratory acidosis with secondary metabolic alkalosis. #Mechanical ventilation. #Hx of MOUNIKA. - Patient's hypercapnia was improving with end-tidal CO2 in the low 60s prior to extubation, RSBI 22 - Patient denies any history of COPD Differentials: -Consider central sleep apnea, asthma, pneumonia, related to hypercapnia Diagnostic Work Up: - ABG 04/06/2025 showed pH 7.36, pCO2 70, NJ2008, HCO3 39. - Chest x-ray showed moderate vascular congestion along with bibasilar pneumonia 04/04/2025. Plan: - Patient extubated -Titrate nasal cannula oxygen flow with O2 saturation - Steroids discontinued 04/05/2025 low suspicion of COPD exacerbation - Holding montelukast - biPAP at night #CAP Pneumonia Bibasilar pneumonia on chest x-ray 04/04/2025 Plan: - Azithromycin, Zosyn. - Follow-up sputum cultures. #Hepatomegaly #Hyperbilirubinemia Differential diagnosis: - Consider liver dysfunction in relation to decreasing mentation on day of admission in combination with CT findings - Consider Blackstone syndrome in the setting of increased indirect bilirubin, hepatomegaly, and plan of mentation on day of admission in the setting of acute respiratory distress - CT demonstrated hepatomegaly 04/04/2025 - Total bilirubin 1.5 down from 2.8, direct bilirubin 0.6 04/06/2025 - Calculated indirect bilirubin is 0.9, high end of normal range - Liver ultrasound 04/06/2025 was negative for cholelithiasis, showed borderline thickening of the gallbladder wall, hepatomegaly, possible fatty infiltration, no focal liver lesions - Follow up hepatitis panel Plan: ? Trend CMP - Follow-up outpatient GI ? Considering additional liver markers #Hematuria Diagnostic workup: - 2+ protein, 3+ RBCs on urinalysis - Consider trauma from Bustamante catheter insertion. Plan: - Continue to monitor - Zosyn on board for pneumonia, should cover gram-negative UTI however low likelihood #Acute kidney injury, improving DDx: Prerenal versus ATN versus obstructive Could be related to diuresis OUP 1100 mL Plan: ?Avoid nephrotoxic agents ? Renally dose medicines ? Strict I's and O's #Non insulin dependent Type II Diabetes mellitus A1c 6.9 Plan: ? Sliding scale insulin ? Hypoglycemic protocol in place ? Blood sugar checks with meals Plan: - Bedside blood glucose every 6 hours. - Titrate sliding scale insulin. #Hx of CVA. Per family patient had stroke 3 years ago, no residual deficit, head CT unremarkable. Plan: - Continue home aspirin and atorvastatin. #Normocytic normochromic anemia Diagnostic Work Up: - Hemoglobin 14 hematocrit 46.8 Plan: - Continue to monitor with morning CBCs #Hypervolemic Hypernatremia, resolved #Hypomagnesemia (resolved) #Health Maintenance Disposition: Telemetry DVT prophylaxis: Eliquis GI prophylaxis: Protonix Diet: Cardiac CODE STATUS: Full Patient seen and care discussed with my attending physician, Dr. Sony Harvey, PGY-2 Attending Provider Attestation/Addendum I have examined the patient, reviewed labs and imaging findings, discussed the case with the resident(s), and reviewed entered orders. I agree with the plan of care as outlined in this note. Dr. Sony MD
--- NOTE | 2025-04-06 20:17 | ESCONSULT_ITS ---
HPI Data of Consult Requesting Physician: Claire Marcum MD Admitting Provider: Adonis Cardoza MD Attending Provider: Claire Marcum MD Primary Care Provider: Bert Echeverria MD Consult Narrative History of present illness: The patient is a 74-year-old male with past medical history significant for hypertension, possible CAD, chronic A-fib, type 2 diabetes mellitus, MOUNIKA and acute CVA in 2019 presented to ED with chief complaint of worsening SOB for the past couple of months. The history was obtained by the patient, and chart review, as patient is unaware of his medical history; and reported he just takes medications that is prescribed to him by his PCP. The patient had 2 PCP visits after starting to develop SOB, and was prescribed some medicine, that did not help at all, and is SOB continued to worsen. The patient was noncompliant with his CPAP machine, and was taken back. The patient uses 3 L of oxygen at night, likely prescribed by his PCP, but the patient has never seen any data analyst etl developer or big data lead so far. The patient was initially taking warfarin for atrial fibrillation, later switched to Eliquis 2.5 Mg once daily by PCP. Before presentation, his oxygen saturation dropped to 60s, but further increase in oxygen delivery via NC achieved oxygen saturation of 90%. The patient admitted generalized body swelling, more on legs and buttocks. He walks with walker, but recently has been less mobile. The patient was initially managed for acute hypoxic hypercapnic respiratory failure at telemetry unit and later upgraded to ICU, but downgraded to telemetry unit today. During my evaluation, his vitals were fairly stable with blood pressure 134/80, pulse 103, RR 20, saturating 92% on 2 L NC. Labs revealed white count 11.4, ABG this morning revealed pH 7.36, PCO2 70, PO2 101, and bicarb 39. Chemistry panel revealed bicarb 36.9, BUN 35, creatinine 1.4, GFR 52, blood sugar 198, magnesium 2.2, total bilirubin 1.5, direct bilirubin 0.6, normal liver function. Hepatitis panel negative. EKG revealed A-fib with rate 86, QTc 467 liver ultrasound negative for cholelithiasis, but significant for irregular counter fatty infiltration likely suggestive of cirrhosis. CTA chest was negative for pulmonary embolism. Cardiology consultation was done for further management of possible new onset CHF exacerbation in the setting of longstanding atrial fibrillation. PMH: As mentioned above SHX: Appendectomy, left knee replacement in 1999, renal stones s/p lithotripsy, right knee arthroscopy in 1979 Family history: Siblings have diabetes mellitus Social history: Born and raised in [place], lives with his , works with a walker, has 3 kids and 5 supportive sisters, remote smoker, but admitted heavy drinking with 10 beers for about 15 years long time ago, but denies any IV drug use. Medications: Metoprolol tartrate, losartan hydrochlorothiazide, Eliquis, metformin, potassium chloride, Lipitor Allergies: No known allergies Metoprolol xl 100 Aggressive diuretics cc:: cc: Claire Marcum MD Review of Systems Review of Systems Systems Reviewed: All systems reviewed, normal except as documented Exam Vital Signs Temp Pulse Resp BP Pulse Ox O2 Del Method O2 Flow Rate 97.7 F 95 20 129/83 92 L Nasal Cannula 2 04/06/25 15:00 04/06/25 19:26 04/06/25 19:26 04/06/25 16:00 04/06/25 19:26 04/06/25 15:00 04/06/25 19:26 FiO2 30 04/06/25 09:58 Narrative Exam General: Obese, cooperative gentleman, no acute distress, Alert and Oriented x 3 HEENT: Moist mucous membranes, oropharynx clear Neck: Supple, No masses, No JVD CVS: Irregularly irregular rate and rhythm, No murmurs, rubs or gallops Lungs: Bibasilar crackles appreciated, mild inspiratory wheeze appreciated, no rhonchi Abd: Severely distended, fluid thrill positive, +BS, unable to appreciate any organomegaly due to anasarca Ext: Anasarca, 4-5+ bilateral lower limb edema, unable to appreciate peripheral pulses in lower limb Skin: Darkening of bilateral lower legs Psych: Appropriate mood and affect Results Labs 04/07/25 04:41 04/07/25 04:41 Labs: Short CBC 04/06/25 Range/Units 05:24 WBC 11.4 H D (3.8-10.6) Thou/mm3 Hgb 14.0 (13.5-16.0) g/dL Hct 46.8 (41.0-53.0) % Plt Count 194 (140-440) Thou/mm3 BMP 07/11/25 05:24 Sodium 145 Potassium 4.0 Chloride 99 Carbon Dioxide 36.9 H BUN 35 H Creatinine 1.4 H Glucose 198 H Calcium 8.7 Liver Function 04/06/25 04/06/25 Range/Units 05:24 07:20 Total Bilirubin 1.5 H D (0.3-1.2) mg/dL Direct Bilirubin 0.6 H (0.0-0.3) mg/dL AST < 10 (0-34) U/L ALT < 7 L (10-49) U/L Alkaline Phosphatase 65 (46-116) U/L Albumin 3.5 (3.4-4.8) gm/dL ABG Interpretation ABG results: 04/04/25 04/04/25 04/04/25 13:42 17:07 18:33 ABG pH 7.14 L* 7.20 L ABG pCO2 107 H* 111 H* ABG pO2 85 78 L ABG HCO3 36 H 39 H ABG O2 Saturation 94 92 ABG Base Excess 4 H 6 H VBG pH 7.48 VBG pCO2 50 VBG pO2 82 H VBG Base Excess 11 H 04/04/25 04/04/25 04/04/25 19:35 22:40 23:52 ABG pH 7.16 L* 7.59 H D 7.53 H ABG pCO2 113 H* 37 D 45 ABG pO2 53 L* D 194 H D 87 D ABG HCO3 40 H 36 H 37 H ABG O2 Saturation 78 L 101 H 99 H ABG Base Excess 7 H 13 H 13 H VBG pH VBG pCO2 VBG pO2 VBG Base Excess 04/05/25 04/05/25 04/05/25 01:20 04:52 13:02 ABG pH 7.52 H 7.47 H 7.30 L D ABG pCO2 47 50 H 74 H* D ABG pO2 60 L D 60 L 64 L ABG HCO3 38 H 37 H 37 H ABG O2 Saturation 94 93 89 L ABG Base Excess 13 H 11 H 7 H VBG pH VBG pCO2 VBG pO2 VBG Base Excess 04/06/25 03:55 ABG pH 7.36 ABG pCO2 70 H ABG pO2 101 D ABG HCO3 39 H ABG O2 Saturation 98 ABG Base Excess 10 H VBG pH VBG pCO2 VBG pO2 VBG Base Excess Quality Measures Quality Measures VTE prophylaxis Advance care planning discussed with:: patient and sibling Medications Home Medications and Allergies Home Medications ?Medication ?Instructions ?Recorded ?Confirmed ?Type apixaban 2.5 mg tablet (Eliquis) 2.5 mg PO DAILY 03/0904/05/25 History losartan 50 mg-hydrochlorothiazide 1 tab PO DAILY 02/2504/05/25 History 12.5 mg tablet metformin 500 mg tablet 500 mg PO DAILY 03/09/2307/21 History metoprolol tartrate 100 mg tablet 200 mg PO BID 04/05/25 History aspirin 81 mg tablet,delayed 81 mg PO QDAY 08/17/23 History release potassium chloride 8 mEq 8 meq PO QDAY 08/17/2304/05 History capsule,extended release albuterol sulfate 90 mcg/actuation 1 inh inhalation WI N PRN shortness 04/05/25 04/05/25 History aerosol inhaler of breath or wheezing atorvastatin 20 mg tablet 20 mg PO DAILY 04/05/2503/27 History montelukast 10 mg tablet 10 mg PO DAILY 04/05/2503/27 History Allergies Allergy/AdvReac Type Severity Reaction Status Date / Time No Known Allergies Allergy Verified 04/04/25 12:58 Visit Medications Acetaminophen (Acetaminophen 325 Mg Tablet) 650 mg PO Q6H PRN PRN Reason: Fever >100 or pain 1-3 Stop: 05/04/25 17:26 Apixaban (Apixaban 2.5 Mg Tablet) 2.5 mg PO BID [facility] Stop: 05/05/25 20:59 Last Admin: 04/06/25 09:26 Dose: 2.5 mg Aspirin (Aspirin Ec 81 Mg Tabec) 81 mg PO QDAY [facility] Stop: 05/05/25 08:59 Last Admin: 04/06/25 09:26 Dose: 81 mg Atorvastatin Calcium (Atorvastatin Calcium 10 Mg Tablet) 20 mg PO HS [facility] Stop: 05/04/25 20:59 Last Admin: 04/05/25 21:20 Dose: 20 mg Dextrose (Dextrose 50%-Water Inj 50 Ml Syringe) 25 ml IV Q15MIN PRN PRN Reason: BG 50-70 responsive npo pt Stop: 05/04/25 17:37 Dextrose (Dextrose 50%-Water Inj 50 Ml Syringe) 50 ml IV Q15MIN PRN PRN Reason: BG <50 OR BG <70 & pt unresponsive Stop: 05/04/25 17:37 Furosemide (Furosemide Inj 10 Mg/Ml Vial 2 Ml) 20 mg IVP DAILY [facility] Stop: 05/06/25 08:59 Glucagon (Glucagon Inj 1 Mg Vial) 1 mg IM Q15MIN PRN PRN Reason: BG <70, and no IV access Piperacillin Sod/Tazobactam (Sod 4.5 gm/ Sodium Chloride) 100 mls @ 200 mls/hr IV Q6HR [facility] Stop: 04/12/25 02:59 Last Admin: 04/06/25 19:09 Dose: 200 mls/hr Azithromycin 500 mg/ Sodium (Chloride) 250 mls @ 250 mls/hr IV QDAY [facility] Stop: 04/09/25 08:55 Last Admin: 04/06/25 09:26 Dose: 250 mls/hr Insulin Glargine (Insulin Glargine (Lantus) 5 Unit/0.05 Ml (Per 5 Units)) 5 unit SC HS [facility] Stop: 05/06/25 20:59 Insulin Human Lispro (Insulin Lispro (Admelog) 1 Unit/0.01 Ml Unit) 0 unit SC Q6HR [facility]; Protocol Stop: 05/05/25 00:44 Last Admin: 04/06/25 17:26 Dose: Not Given Ipratropium [place] (Ipratropium Rt 0.5 Mg/ 2.5 Ml Nebu) 0.5 mg INH Q4HRRT PRN PRN Reason: SOB/Wheezing Stop: 05/05/25 10:59 Levalbuterol HCl (Levalbuterol Rt 1.25 Mg/0.5 Ml Nebu) 1.25 mg INH Q4HRRT PRN PRN Reason: SOB/Wheezing Stop: 05/05/25 10:59 Metoprolol Tartrate (Metoprolol Tartrate 25 Mg Tablet) 50 mg PO BID [facility] Stop: 05/05/25 20:59 Last Admin: 04/06/25 09:26 Dose: 50 mg Montelukast Sodium (Montelukast Sodium 10 Mg Tablet) 10 mg PO QDAY [facility] Stop: 05/05/25 08:59 Last Admin: 04/06/25 09:26 Dose: 10 mg Ondansetron HCl (Ondansetron Inj 2 Mg/Ml Inj 2 Ml) 4 mg IVP Q6H PRN; Protocol PRN Reason: NAUSEA OR VOMITING Stop: 05/04/25 17:31 Pantoprazole Sodium (Pantoprazole Inj 40 Mg Vial) 40 mg IVP QDAY [facility] Stop: 05/05/25 08:59 Last Admin: 04/06/25 09:25 Dose: 40 mg Sodium Chloride (Sodium Chloride Rt Zo 0.9% 3 Ml Nebu) 3 ml INH PRN PRN PRN Reason: SOLN Stop: 05/04/25 17:26 Discontinued Medications Hydrocodone Bitart/Acetaminophen (Hydrocodone/Apap 5/325 Tablet) 1 tab PO Q6HR PRN PRN Reason: PAIN SCALE 4-6 (Moderate Stop: 04/09/25 17:31 Amlodipine Besylate (Amlodipine Besylate 5 Mg Tablet) 5 mg PO X1 ONE Stop: 04/05/25 00:30 Last Admin: 04/05/25 00:50 Dose: 5 mg Apixaban (Apixaban 2.5 Mg Tablet) 5 mg PO BID [facility] Stop: 05/04/25 20:59 Apixaban (Apixaban 2.5 Mg Tablet) 5 mg PO BID [facility] Stop: 05/05/25 08:59 Apixaban (Apixaban 2.5 Mg Tablet) 2.5 mg PO QDAY [facility] Stop: 05/05/25 08:59 Last Admin: 04/05/25 09:51 Dose: 2.5 mg Etomidate (Etomidate Inj 2 Mg/Ml Vial 10 Ml) 20 mg IVP X1 ONE Stop: 04/04/25 19:50 Last Admin: 04/04/25 20:07 Dose: 20 mg Furosemide (Furosemide Inj 10 Mg/Ml Vial 2 Ml) 20 mg IVP BID [facility] Stop: 05/04/25 20:59 Last Admin: 04/04/25 21:51 Dose: Not Given Furosemide (Furosemide Inj 10 Mg/Ml 4ml Vial) 40 mg IVP X1 ONE Stop: 04/04/25 20:43 Last Admin: 04/04/25 20:47 Dose: 40 mg Furosemide (Furosemide Inj 10 Mg/Ml Vial 2 Ml) 40 mg IVP DAILY [facility] Stop: 05/05/25 08:59 Last Admin: 04/05/25 09:55 Dose: Not Given Hydralazine HCl (Hydralazine Inj 20 Mg/Ml Vial) 10 mg IVP Q4H PRN PRN Reason: SBP >170 Stop: 05/04/25 17:41 Hydralazine HCl (Hydralazine Inj 20 Mg/Ml Vial) 10 mg IVP X1 ONE Stop: 04/04/25 23:34 Last Admin: 04/05/25 00:22 Dose: 10 mg Magnesium Sulfate (Magnesium Sulfate Ivpb) 2 gm in 50 mls @ 25 mls/hr IV X1 ONE Stop: 04/04/25 19:38 Last Infusion: 04/04/25 21:26 Dose: Infused Ceftriaxone Sodium 1 gm/ (Sodium Chloride) 50 mls @ 100 mls/hr IV QDAY [facility] Stop: 04/11/25 18:57 Last Infusion: 04/04/25 20:00 Dose: Infused Azithromycin 500 mg/ Sodium (Chloride) 250 mls @ 250 mls/hr IV QDAY [facility] Stop: 04/11/25 18:58 Last Admin: 04/04/25 22:16 Dose: Not Given Azithromycin 500 mg/ Sodium (Chloride) 250 mls @ 250 mls/hr IV X1 ONE Stop: 04/04/25 20:14 Last Admin: 04/04/25 22:16 Dose: Not Given Fentanyl Citrate (Sublimaze Inj 2,500 Mcg/250 Ml Bag) 2,500 mcg in 250 mls @ 2.5 mls/hr IV .Q24H PRN; Protocol PRN Reason: PER PROTOCOL Stop: 04/09/25 19:50 Last Titration: 04/05/25 09:30 Dose: 0 mcg/hr, 0 mls/hr Midazolam HCl (Versed Pf Inj In Ns Premix) 100 mg in 100 mls @ 1 mls/hr IV .Q24H PRN; Protocol PRN Reason: PER PROTOCOL Stop: 04/09/25 19:50 Last Titration: 04/05/25 02:30 Dose: 0 mg/hr, 0 mls/hr Piperacillin/Tazobactam/Dextrose (Zosyn) 3.375 gm in 50 mls @ 100 mls/hr IV X1 ONE Stop: 04/04/25 20:51 Last Infusion: 04/04/25 21:21 Dose: Infused Piperacillin/Tazobactam/Dextrose (Zosyn) 3.375 gm in 50 mls @ 12.5 mls/hr IV Q8HR [facility] Stop: 04/12/25 05:59 Vancomycin HCl 2,000 mg/ (Sodium Chloride) 500 mls @ 150 mls/hr IV X1 ONE Stop: 04/05/25 00:19 Last Admin: 04/04/25 22:01 Dose: 150 mls/hr Propofol (Diprivan Ivpb) 1,000 mg in 100 mls @ 3.6 mls/hr IV .Q24H PRN; Protocol PRN Reason: PER PROTOCOL Stop: 05/04/25 20:58 Propofol (Diprivan Ivpb) 1,000 mg in 100 mls @ 3.6 mls/hr IV .Q24H PRN; Protocol PRN Reason: PER PROTOCOL Stop: 05/04/25 21:06 Last Titration: 04/05/25 07:40 Dose: 0 mcg/kg/min, 0 mls/hr Piperacillin Sod/Tazobactam (Sod 4.5 gm/ Sodium Chloride) 100 mls @ 200 mls/hr IV Q6HR [facility] Stop: 04/11/25 22:32 Last Admin: 04/05/25 07:59 Dose: Not Given Magnesium Sulfate (Magnesium Sulfate Ivpb) 4 gm in 50 mls @ 12.5 mls/hr IV X1 ONE Stop: 04/05/25 11:42 Last Admin: 04/05/25 09:50 Dose: 12.5 mls/hr Magnesium Sulfate (Magnesium Sulfate Ivpb) 2 gm in 50 mls @ 25 mls/hr IV X1 ONE Stop: 04/05/25 13:44 Last Admin: 04/05/25 11:42 Dose: 25 mls/hr Insulin Human Lispro (Insulin Lispro (Admelog) 1 Unit/0.01 Ml Unit) 0 unit SC AC [facility]; Protocol Stop: 05/05/25 07:29 Ipratropium [place] (Ipratropium Rt 0.5 Mg/ 2.5 Ml Nebu) 0.5 mg INH Q6HRRT [facility] Stop: 05/04/25 18:59 Last Admin: 04/05/25 06:06 Dose: 0.5 mg Ipratropium [place] (Ipratropium Rt 0.5 Mg/ 2.5 Ml Nebu) 0.5 mg INH Q4HRRT [facility] Stop: 05/05/25 10:59 Last Admin: 04/06/25 10:12 Dose: 0.5 mg Levalbuterol HCl (Levalbuterol Rt 1.25 Mg/0.5 Ml Nebu) 1.25 mg INH Q6HRRT [facility] Stop: 05/04/25 18:59 Last Admin: 04/05/25 06:06 Dose: 1.25 mg Levalbuterol HCl (Levalbuterol Rt 1.25 Mg/0.5 Ml Nebu) 1.25 mg INH Q4HRRT [facility] Stop: 05/05/25 10:59 Last Admin: 04/06/25 10:12 Dose: 1.25 mg Methylprednisolone Sodium Succinate (Methylprednisolone Sod Succ 62.5 Mg/Ml 2ml Vial) 125 mg IVP X1 ONE Stop: 04/04/25 20:26 Last Admin: 04/04/25 20:52 Dose: 125 mg Methylprednisolone Sodium Succinate (Methylprednisolone Sod Succ 62.5 Mg/Ml 2ml Vial) 60 mg IVP Q6HR [facility] Stop: 04/12/25 02:59 Last Admin: 04/05/25 05:30 Dose: 60 mg Methylprednisolone Sodium Succinate (Methylprednisolone Sod Succ 62.5 Mg/Ml 2ml Vial) 60 mg IVP QDAY [facility] Stop: 04/12/25 08:59 Last Admin: 04/05/25 09:52 Dose: 60 mg Metoprolol Tartrate (Metoprolol Tartrate Inj 1 Mg/Ml Amp 5 Ml) 5 mg IVP X1 ONE Stop: 04/05/25 11:19 Last Admin: 04/05/25 11:36 Dose: Not Given Metoprolol Tartrate (Metoprolol Tartrate 25 Mg Tablet) 100 mg PO BID [facility] Stop: 05/05/25 11:29 Last Admin: 04/05/25 11:37 Dose: Not Given Metoprolol Tartrate (Metoprolol Tartrate 25 Mg Tablet) 50 mg PO X1 ONE Stop: 04/05/25 11:34 Last Admin: 04/05/25 11:42 Dose: 50 mg Pharmacy Consult (Vancomycin Pharmacy To Dose 1 Each Each) 1 each IV QDAY [facility] Stop: 05/04/25 20:29 Last Admin: 04/05/25 07:59 Dose: Not Given Potassium Chloride (Potassium Chloride 10% 20 Meq/15 Ml Udc) 40 meq NG X1 ONE Stop: 04/05/25 07:43 Last Admin: 04/05/25 09:51 Dose: 40 meq Rocuronium [place] (Rocuronium Inj 10 Mg/Ml Vial 10 Ml) 75 mg IV X1 ONE Stop: 04/04/25 19:50 Last Admin: 04/04/25 20:07 Dose: 75 mg Sodium Chloride (Sodium Chloride Rt 10% 15 Ml Nebu) 5 ml INH X1 ONE Stop: 04/04/25 22:20 Last Admin: 04/05/25 00:52 Dose: Not Given Assessment & Plan Plan The patient is a 74-year-old male with past medical history significant for hypertension, possible CAD, chronic A-fib, type 2 diabetes mellitus, MOUNIKA and acute CVA in 2019 presented to ED with chief complaint of worsening SOB for the past couple of months is currently being managed for acute on chronic hypoxic respiratory failure. Cardiology consultation was done for further management of possible new onset CHF exacerbation in the setting of longstanding atrial fibrillation. #Acute on chronic hypoxic respiratory failure 2/2 #Possible new onset CHF exacerbation, in the setting of #Chronic atrial fibrillation #MOUNIKA Patient presented with chief complaint of worsening of SOB for past couple of months, visited PCP for 2 times, was given some medications that did not help at all. The patient has history of longstanding atrial fibrillation diagnosed about 5 years ago, but patient is unaware of the situation. Physical exam is significant for generalized anasarca. Liver enzymes WNL, though suspicious for cirrhosis as there is irregular liver counter, but synthetic and detoxification function of liver is intact, suggestive of more likely acute new onset CHF exacerbation. TSH 1.35 [id number] score of 6 - Aggressive diuretics with Lasix 40 Mg IV twice daily - Metoprolol succinate 100 Mg daily at night for rate control - We will review the TTE film - Maintain potassium and magnesium greater than 4 and greater than 2 all the time - Strict ins and out, fluid restriction of 1500 cc daily - Low-sodium diet - Patient education regarding CHF and atrial fibrillation - CPAP/BiPAP at night, as needed at daytime - Telemetry monitoring - Eliquis 5 Mg twice daily #Past medical history of acute CVA in 2019 #Hypertension #Hyperlipidemia #Possible CAD LDL 73 Blood pressure soft at this time -Aspirin 81 Mg daily -Lipitor 40 Mg daily at night, to maintain LDL level less than 55 in the setting of hypertension, diabetes mellitus type 2 and past medical history of CVA -Antihypertensive will be adjusted given the patient's heart rate and blood pressure, currently started on metoprolol succinate 100 Mg daily at night #DM type II, A1c 6.9 #Rule out cirrhosis Rest of the management deferred to primary hospitalist team. Thank you for consulting cardiology team. We appreciate the opportunity to participate in this patient's care. Cardiology team will continue to follow-up on this patient care. The patient's management plan was discussed with my attending physician MD Escobar Torres MD, PGY3 Attending Provider Attestation/Addendum I have personally seen and examined the patient separately on the above date of service and discussed the plan of care with the resident. I reviewed the resident Dr. Escobar Francis consultation progress note and agree with the resident findings and plan in the note above and have also edited the documentation to reflect my findings and plan. A 74-year-old male with a past medical history of chronic atrial fibrillation, essential hypertension, type 2 diabetes mellitus, morbid obesity, obstructive sleep apnea not compliant with CPAP on oxygen at night, History of CVA in 2019, hyperlipidemia, nephrolithiasis status post lithotripsy, osteoarthritis status post left knee replacement, history of heavy alcohol use when younger quit 15 years ago was brought into the hospital for worsening shortness of breath. Patient was found to have acute hypoxic and hypercapnic respiratory failure. He was initially placed on BiPAP and did not improve and was intubated and was on mechanical ventilation. Patient levels were greater than 90. Present upon further questioning said that he has been having worsening shortness of breath and leg swelling over the past couple of months. He did see his primary doctor twice and he gave him some medications and did not improve much. He has been having increased shortness of breath unable to lie down on the bed orthopnea with increased work of breathing and family brought him to the emergency department for further evaluation. Patient has acute hypoxic and hypercapnic respiratory failure in the setting of a CHF exacerbation. No underlying COPD noted and no history of smoking except that he worked in the [place]. Will need PFTs as outpatient when he is discharged. Patient is off mechanical ventilation and has been extubated and on oxygen via nasal cannula. On examination patient is anasarca with 4+ edema including abdominal wall edema and mild scrotal swelling. Patient's acute hypoxic respiratory failure mostly secondary to the fluid overload. Will need to rule out any underlying liver or kidney disease along with heart failure. Patient abdomen appears to be normal range and kidney function in the normal range. Will need to urine protein is 2+. Will need to evaluate further for proteinuria. Patient does have diastolic dysfunction but could not be graded because of the A-fib. Otherwise the echo has been ordered already and has normal LV systolic function with an EF of 60 to 65% and mild right ventricle enlargement with severe biatrial enlargement, trace MR TR and IVC dilated without significant collapse and no pericardial effusion. Recommend to continue diuresis with Lasix 40 mg IV twice daily and keep net negative around 1 to 2 L/day. Continue to monitor renal function closely. Strict input output, daily weights and 2 g sodium diet. Regarding his atrial fibrillation patient appears to be rate controlled at the present point of time. Patient unclear of his diagnosis. But appears that patient has been in atrial fibrillation for a long time. Previously his INR was high in 2019 indicating that he was possibly on warfarin. Now is on Eliquis at 2.5 mg daily. Dosage is incorrect for Eliquis and recommend to give Eliquis 5 mg twice daily if no further procedures are planned.Keep potassium greater than 4 magnesium greater than 2.0 at all times. There is a high probability of sudden, clinically significant or life threatening deterioration in the patient condition which required the highest level of physician preparedness to intervene urgently. I have personally spent 65 minutes of critical care time, exclusive of time spent on any procedures, in evaluation and management of this critically ill patient. Management of rest of the medical conditions as per primary team and other consultants. Thank you for the consult and allowing me to participate in the care of the patient. Cardiology will continue to follow. Luis Toney M.D. Interventional Cardiology
[2025-04-06] MEDS: ATORVASTATIN CALCIUM 10 MG TABLET 20 MG PO (21:17)
[2025-04-06] MEDS: INSULIN GLARGINE (Lantus) 5 UNIT/0.05 ML (PER 5 UNITS) SC (21:17)
[2025-04-06] MEDS: METOPROLOL SUCCINATE XL 25 MG TABCR 100 MG PO (21:20)
[2025-04-06] MEDS: FUROSEMIDE INJ 10 MG/ML 4ML VIAL 40 MG IVP (21:20)
[2025-04-07] VITALS (15 sets, daily range): BP systolic 131–168; BP diastolic 75–117; PULSE 81–108; RESP 16–25; TEMP 36.2–36.8; O2SAT 90–99; BMI 37.9
[2025-04-07] MEDS: PIPER/TAZO INJ 4.5 GM in SODIUM CHLORIDE 0.9% (POP) 100 ML IV ×5 (00:27→23:14)
[2025-04-07 05:57] LABS: Basophils # (Auto) 0.0 Thou/mm3 (0.0-0.2); Basophils % (Auto) 0 % (0-2.5); Eosinophils # (Auto) 0.0 Thou/mm3 (0.0-0.5); Eosinophils % (Auto) 0 % (0-10); Hematocrit 47.9 % (41.0-53.0); Hemoglobin 14.4 g/dL (13.5-16.0); Immature Granulocytes Auto 0.03 Thou/mm3 (0.00-0.00); Lymphocytes # (Auto) 1.1 Thou/mm3 (1.0-4.8); Lymphocytes % (Auto) 10 % (10-50); Mean Corpuscular HGB Conc 30.1 g/dl (31.0-37.0); Mean Corpuscular Hemoglobin 26.7 pg (25.0-35.0); Mean Corpuscular Volume 89 fL (80-100); Monocytes # (Auto) 1.0 Thou/mm3 (0.0-0.8); Monocytes % (Auto) 10 % (0-12); Neutrophils # (Auto) 8.1 Thou/mm3 (1.8-7.7); Neutrophils % (Auto) 79 % (37-80); Nucleated Red Blood Cell # 0.00 Thou/mm3 (0.00-0.00); Nucleated Red Blood Cell % 0 /100 WBC (0); Platelet Count 168 Thou/mm3 (140-440); RDW Standard Deviation 52.6 fL (35.1-43.9); Red Blood Count 5.39 Miln/mm3 (4.50-5.90); White Blood Count 10.3 Thou/mm3 (3.8-10.6)
[2025-04-07 06:44] LABS: Alanine Aminotransferase 8 U/L (10-49); Albumin, Serum 3.6 gm/dL (3.4-4.8); Albumin/Globulin Ratio 1.3 (1.2-2.2); Alkaline Phosphatase 63 U/L (46-116); Anion Gap 10 (7-16); Aspartate Amino Transferase 19 U/L (0-34); BUN/Creatinine Ratio 30 Ratio (12-20); Bilirubin,Total 2.3 mg/dL (0.3-1.2); Blood Urea Nitrogen 33 mg/dL (9-23); Calcium 8.8 mg/dL (8.3-10.6); Calcium (Corrected) 9.1 mg/dL (8.5-10.1); Carbon Dioxide > 40.0 mMol/L (20.0-31.0); Chloride 96 mMol/L (98-107); Creatinine (Component) 1.1 mg/dL (0.6-1.3); Estimated Creatinine Clearance 71.8 mL/min (>60); Globulin 2.7 gm/dL (2.3-3.5); Glucose 110 mg/dL (74-106); Magnesium 2.1 mg/dL (1.6-2.6); Osmolality,Calculated 298 (275-295); Phosphorous 4.0 mg/dL (2.4-5.1); Potassium 4.1 mMol/L (3.4-5.1); Sodium 146 mMol/L (136-145); Total Protein 6.3 gm/dL (5.7-8.2); eGFR > 60 See Note
[2025-04-07] MEDS: LEVALBUTEROL RT 1.25 MG/0.5 ML NEBU INH ×3 (07:48→22:01)
[2025-04-07] MEDS: IPRATROPIUM RT 0.5 MG/ 2.5 ML NEBU INH ×3 (07:49→22:01)
[2025-04-07] MEDS: FUROSEMIDE INJ 10 MG/ML 4ML VIAL 40 MG IVP ×2 (08:38→20:38)
[2025-04-07] MEDS: ASPIRIN EC 81 MG TABEC PO (08:38)
[2025-04-07] MEDS: APIXABAN 2.5 MG TABLET PO ×2 (08:38→10:12)
[2025-04-07] MEDS: AZITHROMYCIN INJ 500 MG in SODIUM CHLORIDE 0.9% 250 ML 250 ML 250 MG IV (08:41)
--- NOTE | 2025-04-07 09:57 | PD.RESPRO ---
Documentation for date of: 04/07/25 Subjective Subjective Interval history: Patient examined at bedside today. No acute overnight events. Patient reports that he is doing well. He reports that he is a bit sleepy at this time. He says that he uses CPAP last night. He says that he will continue to comply using with it. He says he does not remember the manager real estate seeing him last night. He denies have any shortness of breath this time. No other complaints at this time. Exam Vital Signs Temp Pulse Resp BP Pulse Ox O2 Del Method O2 Flow Rate 98.2 F 86 19 149/94 H 93 L Nasal Cannula 2 04/07/25 08:00 04/07/25 08:38 04/07/25 08:00 04/07/25 08:38 04/07/25 08:00 04/07/25 08:00 04/07/25 08:00 FiO2 40 04/07/25 02:40 Narrative Exam General: AAOx3, NAD, a bit lethargic, obese male HEENT: Moist mucous membranes, conjunctiva clear, EOMI, PERRLA, poor dentition Cardiovascular: S1, S2, radial pulses +2 bilat, irregularly irregular, ejection systolic murmur possible heard Pulmonary: CTAB bilat no cough, no wheezing GI: No tenderness to light or deep palpitation, no guarding, rigidity, rebound tenderness or distension Extremities: +2 pitting edema in LE bilat, dorsalis pedis pulses +2 bilaterally Neuro: AAOx3, no focal motor or sensory deficits in the UE or LE bilat Psych: Good judgement, thought and behavior. Cooperative Objective Labs 04/08/25 04:37 04/08/25 04:37 Labs: Laboratory Results - last 24 hr 04/05/25 04/06/25 04/06/25 04:25 05:24 07:20 WBC RBC Hgb Hct MCV MCH MCHC RDW Std Deviation Plt Count Neut % (Auto) Lymph % (Auto) Harvey % (Auto) Eos % (Auto) Baso % (Auto) Neut # (Auto) Lymph # (Auto) Harvey # (Auto) Eos # (Auto) Baso # (Auto) Immature Gran # (Auto) Absolute Nucleated RBC Immature Gran % Nucleated RBC % Sodium Potassium Chloride Carbon Dioxide Anion Gap BUN Creatinine Estim Creat Clear Calc eGFR BUN/Creatinine Ratio Glucose Calculated Osmolality Calcium Corrected Calcium Phosphorus Magnesium Total Bilirubin Direct Bilirubin 0.6 H AST ALT Alkaline Phosphatase Total Protein Albumin Globulin Albumin/Globulin Ratio Coccidioides IgG Ab Negative Hep Bs Antigen Non Reactive Hep Bs Antibody NonReact(Not Immune) L Hep B Core IgM Ab Non Reactive Hepatitis C Antibody Non Reactive 04/07/25 04:41 WBC 10.3 RBC 5.39 Hgb 14.4 Hct 47.9 MCV 89 MCH 26.7 MCHC 30.1 L RDW Std Deviation 52.6 H Plt Count 168 Neut % (Auto) 79 Lymph % (Auto) 10 Harvey % (Auto) 10 Eos % (Auto) 0 Baso % (Auto) 0 Neut # (Auto) 8.1 H Lymph # (Auto) 1.1 Harvey # (Auto) 1.0 H Eos # (Auto) 0.0 Baso # (Auto) 0.0 Immature Gran # (Auto) 0.03 H Absolute Nucleated RBC 0.00 Immature Gran % 0 Nucleated RBC % 0 Sodium 146 H Potassium 4.1 Chloride 96 L Carbon Dioxide > 40.0 H Anion Gap 10 BUN 33 H Creatinine 1.1 Estim Creat Clear Calc 71.8 eGFR > 60 BUN/Creatinine Ratio 30 H Glucose 110 H D Calculated Osmolality 298 H Calcium 8.8 Corrected Calcium 9.1 Phosphorus 4.0 Magnesium 2.1 Total Bilirubin 2.3 H D Direct Bilirubin AST 19 ALT 8 L Alkaline Phosphatase 63 Total Protein 6.3 Albumin 3.6 Globulin 2.7 Albumin/Globulin Ratio 1.3 Coccidioides IgG Ab Hep Bs Antigen Hep Bs Antibody Hep B Core IgM Ab Hepatitis C Antibody ABG Interpretation ABG results: 04/04/25 04/04/25 04/04/25 13:42 17:07 18:33 ABG pH 7.14 L* 7.20 L ABG pCO2 107 H* 111 H* ABG pO2 85 78 L ABG HCO3 36 H 39 H ABG O2 Saturation 94 92 ABG Base Excess 4 H 6 H VBG pH 7.48 VBG pCO2 50 VBG pO2 82 H VBG Base Excess 11 H 04/04/25 04/04/25 04/04/25 19:35 22:40 23:52 ABG pH 7.16 L* 7.59 H D 7.53 H ABG pCO2 113 H* 37 D 45 ABG pO2 53 L* D 194 H D 87 D ABG HCO3 40 H 36 H 37 H ABG O2 Saturation 78 L 101 H 99 H ABG Base Excess 7 H 13 H 13 H VBG pH VBG pCO2 VBG pO2 VBG Base Excess 04/05/25 04/05/25 04/05/25 01:20 04:52 13:02 ABG pH 7.52 H 7.47 H 7.30 L D ABG pCO2 47 50 H 74 H* D ABG pO2 60 L D 60 L 64 L ABG HCO3 38 H 37 H 37 H ABG O2 Saturation 94 93 89 L ABG Base Excess 13 H 11 H 7 H VBG pH VBG pCO2 VBG pO2 VBG Base Excess 04/06/25 03:55 ABG pH 7.36 ABG pCO2 70 H ABG pO2 101 D ABG HCO3 39 H ABG O2 Saturation 98 ABG Base Excess 10 H VBG pH VBG pCO2 VBG pO2 VBG Base Excess Quality Measures Quality Measures VTE prophylaxis Advance care planning discussed with:: patient Assessment & Plan Assessment Current Active Medications: Generic Name Dose Route Start Last Admin Trade Name Freq PRN Reason Stop Dose Admin Acetaminophen 650 mg 04/04/25 17:27 Acetaminophen 325 Mg Tablet PO 05/04/25 17:26 Q6H PRN Fever >100 or pain 1-3 Apixaban 5 mg 04/07/25 21:00 Apixaban 2.5 Mg Tablet PO 05/07/25 20:59 BID JOSELUIS Aspirin 81 mg 04/05/25 09:00 04/07/25 08:38 Aspirin Ec 81 Mg Tabec PO 05/05/25 08:59 81 mg QDAY JOSELUIS Administration Atorvastatin Calcium 20 mg 04/07/25 21:00 Atorvastatin Calcium 20 Mg Tablet PO 05/07/25 20:59 HS JOSELUIS Dextrose 25 ml 04/04/25 17:38 Dextrose 50%-Water Inj 50 Ml Syringe IV 05/04/25 17:37 Q15MIN PRN BG 50-70 responsive npo pt Dextrose 50 ml 04/04/25 17:38 Dextrose 50%-Water Inj 50 Ml Syringe IV 05/04/25 17:37 Q15MIN PRN BG <50 OR BG <70 & pt unresponsive Furosemide 40 mg 04/06/25 21:00 04/07/25 08:38 Furosemide Inj 10 Mg/Ml 4ml Vial IVP 05/06/25 20:59 40 mg BID JOSELUIS Administration Glucagon 1 mg 04/04/25 17:38 Glucagon Inj 1 Mg Vial IM Q15MIN PRN BG <70, and no IV access Piperacillin Sod/Tazobactam 100 mls @ 200 mls/hr 04/05/25 03:00 04/07/25 06:47 Sod 4.5 gm/ Sodium Chloride IV 04/12/25 02:59 Infused Q6HR JOSELUIS Infusion Azithromycin 500 mg/ Sodium 250 mls @ 250 mls/hr 04/05/25 08:56 04/07/25 08:41 Chloride IV 04/09/25 08:55 250 mls/hr QDAY JOSELUIS Administration Insulin Glargine 5 unit 04/06/25 21:00 04/06/25 21:17 Insulin Glargine (Lantus) 5 Unit/0.05 Ml (Per 5 Units) SC 05/06/25 20:59 5 unit HS JOSELUIS Administration Insulin Human Lispro 0 unit 04/07/25 07:30 04/07/25 07:58 Insulin Lispro (Admelog) 1 Unit/0.01 Ml Unit SC 05/07/25 07:29 Not Given ACHS [facility] Protocol Ipratropium Lewis 0.5 mg 04/07/25 07:45 04/07/25 07:49 Ipratropium Rt 0.5 Mg/ 2.5 Ml Nebu INH 05/07/25 07:44 0.5 mg Q8HRRT JOSELUIS Administration Levalbuterol HCl 1.25 mg 04/07/25 07:45 04/07/25 07:48 Levalbuterol Rt 1.25 Mg/0.5 Ml Nebu INH 05/07/25 07:44 1.25 mg Q8HRRT JOSELUIS Administration Metoprolol Succinate 100 mg 04/06/25 21:00 04/06/25 21:20 Metoprolol Succinate Xl 25 Mg Tabcr PO 05/06/25 20:59 100 mg HS JOSELUIS Administration Montelukast Sodium 10 mg 04/05/25 09:00 04/06/25 09:26 Montelukast Sodium 10 Mg Tablet PO 05/05/25 08:59 10 mg QDAY JOSELUIS Administration Ondansetron HCl 4 mg 04/04/25 17:32 Ondansetron Inj 2 Mg/Ml Inj 2 Ml IVP 05/04/25 17:31 Q6H PRN NAUSEA OR VOMITING Protocol Pantoprazole Sodium 40 mg 04/05/25 09:00 04/07/25 08:38 Pantoprazole Inj 40 Mg Vial IVP 05/05/25 08:59 40 mg QDAY JOSELUIS Administration Sodium Chloride 3 ml 04/04/25 17:27 Sodium Chloride Rt Zo 0.9% 3 Ml Nebu INH 05/04/25 17:26 PRN PRN SOLN Plan Assessment 74-year-old male with past medical history A-fib on Eliquis, hypertension, type 2 diabetes mellitus [id number], obstructive sleep apnea who presented to the ED 04/04/2025 with shortness of breath. He was started on BiPAP but deteriorated with worsening respiratory acidosis and hypercapnia due to intubation and admission to the ICU. #CHF exacerbation. #Fluid overload status. #Hypertension. Urine output 3.9 L today, Pitting edema improved from yesterday Echo shows severe SAM, which could mean severe aortic regurgitation, however RSVP very minimally elevated which is something we did not expect We suspected possible right-sided heart failure or moderate pulmonary hypertension Cardiology team to relook at echo images as well Plan: ? Lasix 40 mg IV twice daily ? Holding home amlodipine and losartan. ? Metoprolol XL 100 mg daily ? Resumed home losartan 50 mg #Chronic Afib. CHADVASC2:6 HAS-BLED: 3 Plan: ? Metoprolol XL 100 mg daily ? Telemetry ? Eliquis 5 mg twice daily ? Keep mag and potassium above 2 and 4 respectively #Acute on chronic hypoxic hypercapnic respiratory failure. #Hx Asthma #Bradypnea. #Primary respiratory acidosis with secondary metabolic alkalosis. #Mechanical ventilation. #Hx of MOUNIKA. - Patient's hypercapnia was improving with end-tidal CO2 in the low 60s prior to extubation, RSBI 22 - Patient denies any history of COPD Differentials: -Consider central sleep apnea, asthma, pneumonia, related to hypercapnia Diagnostic Work Up: - ABG 04/06/2025 showed pH 7.36, pCO2 70, [id number], HCO3 39. - Chest x-ray showed moderate vascular congestion along with bibasilar pneumonia 04/04/2025. Patient will need strict follow-up and will need to have a CPAP machine upon discharge as if patient continues to be noncompliant with CPAP will bounce right back into the emergency room for CO2 narcosis and respiratory acidosis Pt's bicarbonate on CHEM panel appears to be above 40, as this is renal response to chronic respiratory acidosis Patient is not requiring additional oxygen at this time, however will assess pH status with a VBG to see patient's new baseline with chronic renal compensation for respiratory acidosis Plan: - Patient extubated -Titrate nasal cannula oxygen flow with O2 saturation - Steroids discontinued 04/05/2025 low suspicion of COPD exacerbation - Holding montelukast - biPAP at night ? Repeat VBG #CAP Pneumonia Bibasilar pneumonia on chest x-ray 04/04/2025 Plan: - Azithromycin, Zosyn. - Follow-up sputum cultures. #Hepatomegaly #Hyperbilirubinemia Differential diagnosis: - Consider liver dysfunction in relation to decreasing mentation on day of admission in combination with CT findings - Consider [place] syndrome in the setting of increased indirect bilirubin, hepatomegaly, and plan of mentation on day of admission in the setting of acute respiratory distress - CT demonstrated hepatomegaly 04/04/2025 - Total bilirubin 1.5 down from 2.8, direct bilirubin 0.6 04/06/2025 - Calculated indirect bilirubin is 0.9, high end of normal range - Liver ultrasound 04/06/2025 was negative for cholelithiasis, showed borderline thickening of the gallbladder wall, hepatomegaly, possible fatty infiltration, no focal liver lesions - Follow up hepatitis panel Plan: ? Trend CMP - Follow-up outpatient GI ? Considering additional liver markers #Hematuria Diagnostic workup: - 2+ protein, 3+ RBCs on urinalysis - Consider trauma from Bustamante catheter insertion. Plan: - Continue to monitor - Zosyn on board for pneumonia, should cover gram-negative UTI however low likelihood #Acute kidney injury, improving DDx: Prerenal versus ATN versus obstructive Could be related to diuresis OUP 1100 mL Plan: ?Avoid nephrotoxic agents ? Renally dose medicines ? Strict I's and O's #Non insulin dependent Type II Diabetes mellitus A1c 6.9 Plan: ? Sliding scale insulin ? Hypoglycemic protocol in place ? Blood sugar checks with meals Plan: - Bedside blood glucose every 6 hours. - Titrate sliding scale insulin. #Hx of CVA. Per family patient had stroke 3 years ago, no residual deficit, head CT unremarkable. Plan: - Continue home aspirin and atorvastatin. #Normocytic normochromic anemia Diagnostic Work Up: - Hemoglobin 14 hematocrit 46.8 Plan: - Continue to monitor with morning CBCs #Hypervolemic Hypernatremia, resolved #Hypomagnesemia (resolved) #Health Maintenance Disposition: Telemetry DVT prophylaxis: Eliquis GI prophylaxis: Protonix Diet: Cardiac CODE STATUS: Full Patient seen and care discussed with my attending physician, Dr. Sony Harvey, PGY-2 Attending Provider Attestation/Addendum I have examined the patient, reviewed labs and imaging findings, discussed the case with the resident(s), and reviewed entered orders. I agree with the plan of care as outlined in this note, with these additional summaries/recommendations: Patient seen at bedside. No acute overnight events. Patient appears at baseline mental status and his acute encephalopathy secondary to hypercapnia has resolved. Patient was downgraded from the ICU yesterday after successful extubation for acute on chronic hypoxic and hypercapnic respiratory failure secondary to obstructive sleep apnea. Continue CPAP whenever patient is sleeping. He reports he previously had a machine at home but stopped using as he did not like the mask. Discussed with patient that he needs to be compliant with his CPAP mask. He will need a repeat sleep study outpatient. We will discuss with case management about arranging home Trilogy machine as patient currently does not have home CPAP and high risk for readmission without. Continue breathing treatments as needed and abx for superimposed bacterial pneumonia. Patient's Eliquis adjusted to appropriate dose for atrial fibrillation. Continue rate control with metoprolol. Continue IV diuresis for likely new onset CHF. Echocardiogram being reviewed. Continue atorvastatin for hyperlipidemia. Continue basal and bolus insulin for diabetes mellitus type 2. Patient and updated on the plan and in agreement. All questions answered to satisfaction. Please see residents note for additional details and management. Dr. Sony MD
--- NOTE | 2025-04-07 10:18 | ESPR_ITS ---
Documentation for date of: 04/07/25 Subjective Subjective Interval history: Patient seen and examined at the bedside this morning. He reported doing well. He denied any SOB, chest pain, dizziness, headache, abdominal pain, admitted mild orthopnea but denied PND, or palpitations. Reported drinking, but adequate urine output. Negative by 1610 cc in last 24 hours. Continue with Lasix 40 Mg IV twice daily Strict ins and outs, 1500 cc fluid restriction Incorporated with diet Keep magnesium and potassium greater than 2 and 4 respectively all the time TTE was significant for diastolic dysfunction, but unable to grade because of atrial fibrillation, LVEF 60 to 65%. Recommended to further evaluate urine protein level, as it was 2+. Aspirin 81 Mg daily, Eliquis 5 Mg twice daily, metoprolol succinate 100 Mg daily and atorvastatin 40 Mg daily at night to maintain LDL level less than 55 in the setting of past medical history of hypertension, diabetes mellitus and stroke. Atorvastatin 20 Mg was switched to 40 Mg daily at night. May need to increase metoprolol succinate to 200 Mg daily if heart rate is not well-controlled below 70. Exam Vital Signs Temp Pulse Resp BP Pulse Ox O2 Del Method O2 Flow Rate 98.2 F 86 19 149/94 H 93 L Nasal Cannula 2 04/07/25 08:00 04/07/25 08:38 04/07/25 08:00 04/07/25 08:38 04/07/25 08:00 04/07/25 08:00 04/07/25 08:00 FiO2 40 04/07/25 02:40 Narrative Exam General: Obese, cooperative gentleman, no acute distress, Alert and Oriented x 3 HEENT: Moist mucous membranes, oropharynx clear Neck: Supple, No masses, No JVD CVS: Irregularly irregular rate and rhythm, No murmurs, rubs or gallops Lungs: Bibasilar crackles appreciated, mild inspiratory wheeze appreciated, no rhonchi Abd: Severely distended, fluid thrill positive, +BS, unable to appreciate any organomegaly due to anasarca Ext: Anasarca, 4-5+ bilateral lower limb edema, unable to appreciate peripheral pulses in lower limb Skin: Darkening of bilateral lower legs Psych: Appropriate mood and affect Objective Labs 04/07/25 04:41 04/07/25 04:41 Labs: Laboratory Results - last 24 hr 04/05/25 04/06/25 04/06/25 04:25 05:24 07:20 WBC RBC Hgb Hct MCV MCH MCHC RDW Std Deviation Plt Count Neut % (Auto) Lymph % (Auto) [place] % (Auto) Eos % (Auto) Baso % (Auto) Neut # (Auto) Lymph # (Auto) [place] # (Auto) Eos # (Auto) Baso # (Auto) Immature Gran # (Auto) Absolute Nucleated RBC Immature Gran % Nucleated RBC % Sodium Potassium Chloride Carbon Dioxide Anion Gap BUN Creatinine Estim Creat Clear Calc eGFR BUN/Creatinine Ratio Glucose Calculated Osmolality Calcium Corrected Calcium Phosphorus Magnesium Total Bilirubin Direct Bilirubin 0.6 H AST ALT Alkaline Phosphatase Total Protein Albumin Globulin Albumin/Globulin Ratio Coccidioides IgG Ab Negative Hep Bs Antigen Non Reactive Hep Bs Antibody NonReact(Not Immune) L Hep B Core IgM Ab Non Reactive Hepatitis C Antibody Non Reactive 04/07/25 04:41 WBC 10.3 RBC 5.39 Hgb 14.4 Hct 47.9 MCV 89 MCH 26.7 MCHC 30.1 L RDW Std Deviation 52.6 H Plt Count 168 Neut % (Auto) 79 Lymph % (Auto) 10 [place] % (Auto) 10 Eos % (Auto) 0 Baso % (Auto) 0 Neut # (Auto) 8.1 H Lymph # (Auto) 1.1 [place] # (Auto) 1.0 H Eos # (Auto) 0.0 Baso # (Auto) 0.0 Immature Gran # (Auto) 0.03 H Absolute Nucleated RBC 0.00 Immature Gran % 0 Nucleated RBC % 0 Sodium 146 H Potassium 4.1 Chloride 96 L Carbon Dioxide > 40.0 H Anion Gap 10 BUN 33 H Creatinine 1.1 Estim Creat Clear Calc 71.8 eGFR > 60 BUN/Creatinine Ratio 30 H Glucose 110 H D Calculated Osmolality 298 H Calcium 8.8 Corrected Calcium 9.1 Phosphorus 4.0 Magnesium 2.1 Total Bilirubin 2.3 H D Direct Bilirubin AST 19 ALT 8 L Alkaline Phosphatase 63 Total Protein 6.3 Albumin 3.6 Globulin 2.7 Albumin/Globulin Ratio 1.3 Coccidioides IgG Ab Hep Bs Antigen Hep Bs Antibody Hep B Core IgM Ab Hepatitis C Antibody ABG Interpretation ABG results: 04/04/25 04/04/25 04/04/25 13:42 17:07 18:33 ABG pH 7.14 L* 7.20 L ABG pCO2 107 H* 111 H* ABG pO2 85 78 L ABG HCO3 36 H 39 H ABG O2 Saturation 94 92 ABG Base Excess 4 H 6 H VBG pH 7.48 VBG pCO2 50 VBG pO2 82 H VBG Base Excess 11 H 04/04/25 04/04/25 04/04/25 19:35 22:40 23:52 ABG pH 7.16 L* 7.59 H D 7.53 H ABG pCO2 113 H* 37 D 45 ABG pO2 53 L* D 194 H D 87 D ABG HCO3 40 H 36 H 37 H ABG O2 Saturation 78 L 101 H 99 H ABG Base Excess 7 H 13 H 13 H VBG pH VBG pCO2 VBG pO2 VBG Base Excess 04/05/25 04/05/25 04/05/25 01:20 04:52 13:02 ABG pH 7.52 H 7.47 H 7.30 L D ABG pCO2 47 50 H 74 H* D ABG pO2 60 L D 60 L 64 L ABG HCO3 38 H 37 H 37 H ABG O2 Saturation 94 93 89 L ABG Base Excess 13 H 11 H 7 H VBG pH VBG pCO2 VBG pO2 VBG Base Excess 04/06/25 03:55 ABG pH 7.36 ABG pCO2 70 H ABG pO2 101 D ABG HCO3 39 H ABG O2 Saturation 98 ABG Base Excess 10 H VBG pH VBG pCO2 VBG pO2 VBG Base Excess Quality Measures Quality Measures VTE prophylaxis Advance care planning discussed with:: patient Assessment & Plan Assessment Current Active Medications: Generic Name Dose Route Start Last Admin [facility] Reason Stop Dose Admin Acetaminophen 650 mg 04/04/25 17:27 Acetaminophen 325 Mg Tablet PO 05/04/25 17:26 Q6H PRN Fever >100 or pain 1-3 Apixaban 5 mg 04/07/25 21:00 Apixaban 2.5 Mg Tablet PO 05/07/25 20:59 BID JOSELUIS Aspirin 81 mg 04/05/25 09:00 04/07/25 08:38 Aspirin Ec 81 Mg Tabec PO 05/05/25 08:59 81 mg QDAY JOSELUIS Administration Atorvastatin Calcium 20 mg 04/07/25 21:00 Atorvastatin Calcium 20 Mg Tablet PO 05/07/25 20:59 HS JOSELUIS Dextrose 25 ml 04/04/25 17:38 Dextrose 50%-Water Inj 50 Ml Syringe IV 05/04/25 17:37 Q15MIN PRN BG 50-70 responsive npo pt Dextrose 50 ml 04/04/25 17:38 Dextrose 50%-Water Inj 50 Ml Syringe IV 05/04/25 17:37 Q15MIN PRN BG <50 OR BG <70 & pt unresponsive Furosemide 40 mg 04/06/25 21:00 04/07/25 08:38 Furosemide Inj 10 Mg/Ml 4ml Vial IVP 05/06/25 20:59 40 mg BID JOSELUIS Administration Glucagon 1 mg 04/04/25 17:38 Glucagon Inj 1 Mg Vial IM Q15MIN PRN BG <70, and no IV access Piperacillin Sod/Tazobactam 100 mls @ 200 mls/hr 04/05/25 03:00 04/07/25 06:47 Sod 4.5 gm/ Sodium Chloride IV 04/12/25 02:59 Infused Q6HR JOSELUIS Infusion Azithromycin 500 mg/ Sodium 250 mls @ 250 mls/hr 04/05/25 08:56 04/07/25 08:41 Chloride IV 04/09/25 08:55 250 mls/hr QDAY JOSELUIS Administration Insulin Glargine 5 unit 04/06/25 21:00 04/06/25 21:17 Insulin Glargine (Lantus) 5 Unit/0.05 Ml (Per 5 Units) SC 05/06/25 20:59 5 unit HS JOSELUIS Administration Insulin Human Lispro 0 unit 04/07/25 07:30 04/07/25 07:58 Insulin Lispro (Admelog) 1 Unit/0.01 Ml Unit SC 05/07/25 07:29 Not Given ACHS [facility] Protocol Ipratropium [place] 0.5 mg 04/07/25 07:45 04/07/25 07:49 Ipratropium Rt 0.5 Mg/ 2.5 Ml Nebu INH 05/07/25 07:44 0.5 mg Q8HRRT JOSELUIS Administration Levalbuterol HCl 1.25 mg 04/07/25 07:45 04/07/25 07:48 Levalbuterol Rt 1.25 Mg/0.5 Ml Nebu INH 05/07/25 07:44 1.25 mg Q8HRRT JOSELUIS Administration Metoprolol Succinate 100 mg 04/06/25 21:00 04/06/25 21:20 Metoprolol Succinate Xl 25 Mg Tabcr PO 05/06/25 20:59 100 mg HS JOSELUIS Administration Montelukast Sodium 10 mg 04/05/25 09:00 04/06/25 09:26 Montelukast Sodium 10 Mg Tablet PO 05/05/25 08:59 10 mg QDAY JOSELUIS Administration Ondansetron HCl 4 mg 04/04/25 17:32 Ondansetron Inj 2 Mg/Ml Inj 2 Ml IVP 05/04/25 17:31 Q6H PRN NAUSEA OR VOMITING Protocol Pantoprazole Sodium 40 mg 04/05/25 09:00 04/07/25 08:38 Pantoprazole Inj 40 Mg Vial IVP 05/05/25 08:59 40 mg QDAY JOSELUIS Administration Sodium Chloride 3 ml 04/04/25 17:27 Sodium Chloride Rt Zo 0.9% 3 Ml Nebu INH 05/04/25 17:26 PRN PRN SOLN Plan The patient is a 74-year-old male with past medical history significant for hypertension, possible CAD, chronic A-fib, type 2 diabetes mellitus, MOUNIKA and acute CVA in 2019 presented to ED with chief complaint of worsening SOB for the past couple of months is currently being managed for acute on chronic hypoxic respiratory failure. Cardiology consultation was done for further management of possible new onset CHF exacerbation in the setting of longstanding atrial fibrillation. #Acute on chronic hypoxic respiratory failure 2/2 #New onset diastolic CHF exacerbation, in the setting of #Chronic atrial fibrillation #MOUNIKA Patient presented with chief complaint of worsening of SOB for past couple of months, visited PCP for 2 times, was given some medications that did not help at all. The patient has history of longstanding atrial fibrillation diagnosed about 5 years ago, but patient is unaware of the situation. Physical exam is significant for generalized anasarca. Liver enzymes WNL, though suspicious for cirrhosis as there is irregular liver counter, but synthetic and detoxification function of liver is intact, suggestive of more likely acute new onset CHF exacerbation. TSH 1.35 [id number] score of 6 - Diuresing well - Aggressive diuretics with Lasix 40 Mg IV twice daily - Metoprolol succinate 100 Mg daily at night for rate control - We will review the TTE film - Maintain potassium and magnesium greater than 4 and greater than 2 all the time - Strict ins and out, fluid restriction of 1500 cc daily - Low-sodium diet - Patient education regarding CHF and atrial fibrillation - CPAP/BiPAP at night, as needed at daytime - Telemetry monitoring - Eliquis 5 Mg twice daily #Past medical history of acute CVA in 2019 #Hypertension #Hyperlipidemia #Possible CAD LDL 73 Blood pressure soft at this time -Aspirin 81 Mg daily -Lipitor 40 Mg daily at night, to maintain LDL level less than 55 in the setting of hypertension, diabetes mellitus type 2 and past medical history of CVA -Antihypertensive will be adjusted given the patient's heart rate and blood pressure, currently started on metoprolol succinate 100 Mg daily at night #DM type II, A1c 6.9 #Rule out cirrhosis #Proteinuria, to be further evaluated Rest of the management deferred to primary hospitalist team. Thank you for consulting cardiology team. We appreciate the opportunity to participate in this patient's care. Cardiology team will continue to follow-up on this patient care. The patient's management plan was discussed with my attending physician MD Escobar Torres MD, PGY3 Attending Provider Attestation/Addendum I have personally seen and examined the patient separately on the above date of service and discussed the plan of care with the resident. I reviewed the resident Dr. Escobar Francis consultation progress note and agree with the resident findings and plan in the note above and have also edited the documentation to reflect my findings and plan. A 74-year-old male with a past medical history of chronic atrial fibrillation, essential hypertension, type 2 diabetes mellitus, morbid obesity, obstructive sleep apnea not compliant with CPAP on oxygen at night, History of CVA in 2019, hyperlipidemia, nephrolithiasis status post lithotripsy, osteoarthritis status post left knee replacement, history of heavy alcohol use when younger quit 15 years ago was brought into the hospital for worsening shortness of breath. Patient was found to have acute hypoxic and hypercapnic respiratory failure. He was initially placed on BiPAP and did not improve and was intubated and was on mechanical ventilation. Patient levels were greater than 90. Present upon further questioning said that he has been having worsening shortness of breath and leg swelling over the past couple of months. He did see his primary doctor twice and he gave him some medications and did not improve much. He has been having increased shortness of breath unable to lie down on the bed orthopnea with increased work of breathing and family brought him to the emergency department for further evaluation. Patient has acute hypoxic and hypercapnic respiratory failure in the setting of a CHF exacerbation. No underlying COPD noted and no history of smoking except that he worked in the [place]. Will need PFTs as outpatient when he is discharged. Patient is off mechanical ventilation and has been extubated and on oxygen via nasal cannula. On examination patient is anasarca with 4+ edema including abdominal wall edema and mild scrotal swelling. Patient's acute hypoxic respiratory failure mostly secondary to the fluid overload. Will need to rule out any underlying liver or kidney disease along with heart failure. Patient abdomen appears to be normal range and kidney function in the normal range. urine protein is 2+. Will need to evaluate further for proteinuria. Patient does have diastolic dysfunction but could not be graded because of the A-fib. Otherwise the echo has been ordered already and has normal LV systolic function with an EF of 60 to 65% and mild right ventricle enlargement with severe biatrial enlargement, trace MR TR and IVC dilated without significant collapse and no pericardial effusion. Recommend to continue diuresis with Lasix 40 mg IV twice daily and keep net negative around 1 to 2 L/day. Continue to monitor renal function closely. Strict input output, daily weights and 2 g sodium diet. Regarding his atrial fibrillation patient appears to be rate controlled at the present point of time. Patient unclear of his diagnosis. But appears that patient has been in atrial fibrillation for a long time. Previously his INR was high in 2019 indicating that he was possibly on warfarin. Now is on Eliquis at 2.5 mg daily. Dosage is incorrect for Eliquis and recommend to give Eliquis 5 mg twice daily if no further procedures are planned.Keep potassium greater than 4 magnesium greater than 2.0 at all times. Management of rest of the medical conditions as per primary team and other consultants. Thank you for the consult and allowing me to participate in the care of the patient. Cardiology will continue to follow. Luis Toney M.D. Interventional Cardiology
[2025-04-07 11:23] LABS: Base Excess, Venous 13 (-3-3); O2 Saturation, Venous 96 % (96-97); PCO2, Venous 67 mmHg (36-56); PO2, Venous 76 mmHg (15-58); pH, Venous 7.40 (7.33-7.66)
[2025-04-07] MEDS: INSULIN LISPRO (AdmeLOG) 1 UNIT/0.01 ML UNIT SC (18:11)
[2025-04-07] MEDS: METOPROLOL SUCCINATE XL 25 MG TABCR 100 MG PO (20:40)
[2025-04-07] MEDS: APIXABAN 2.5 MG TABLET 5 MG PO (20:40)
[2025-04-07] MEDS: ATORVASTATIN CALCIUM 20 MG TABLET 40 MG PO (20:43)
[2025-04-07] MEDS: INSULIN GLARGINE (Lantus) 5 UNIT/0.05 ML (PER 5 UNITS) SC (20:43)
[2025-04-08] VITALS (15 sets, daily range): BP systolic 115–142; BP diastolic 75–109; PULSE 73–110; RESP 13–28; TEMP 36.1–36.3; O2SAT 91–100; BMI 37.0
[2025-04-08] MEDS: PIPER/TAZO INJ 4.5 GM in SODIUM CHLORIDE 0.9% (POP) 100 ML IV ×3 (05:00→17:24)
[2025-04-08 06:33] LABS: Basophils # (Auto) 0.0 Thou/mm3 (0.0-0.2); Basophils % (Auto) 0 % (0-2.5); Eosinophils # (Auto) 0.1 Thou/mm3 (0.0-0.5); Eosinophils % (Auto) 1 % (0-10); Hematocrit 50.8 % (41.0-53.0); Hemoglobin 15.7 g/dL (13.5-16.0); Immature Granulocytes Auto 0.02 Thou/mm3 (0.00-0.00); Lymphocytes # (Auto) 0.9 Thou/mm3 (1.0-4.8); Lymphocytes % (Auto) 10 % (10-50); Mean Corpuscular HGB Conc 30.9 g/dl (31.0-37.0); Mean Corpuscular Hemoglobin 27.0 pg (25.0-35.0); Mean Corpuscular Volume 87 fL (80-100); Monocytes # (Auto) 0.9 Thou/mm3 (0.0-0.8); Monocytes % (Auto) 9 % (0-12); Neutrophils # (Auto) 7.8 Thou/mm3 (1.8-7.7); Neutrophils % (Auto) 80 % (37-80); Nucleated Red Blood Cell # 0.00 Thou/mm3 (0.00-0.00); Nucleated Red Blood Cell % 0 /100 WBC (0); Platelet Count 171 Thou/mm3 (140-440); RDW Standard Deviation 49.6 fL (35.1-43.9); Red Blood Count 5.82 Miln/mm3 (4.50-5.90); White Blood Count 9.8 Thou/mm3 (3.8-10.6)
[2025-04-08] MEDS: IPRATROPIUM RT 0.5 MG/ 2.5 ML NEBU INH ×3 (06:56→22:46)
[2025-04-08] MEDS: LEVALBUTEROL RT 1.25 MG/0.5 ML NEBU INH ×3 (06:56→22:46)
[2025-04-08 07:01] LABS: Alanine Aminotransferase 10 U/L (10-49); Albumin, Serum 3.7 gm/dL (3.4-4.8); Albumin/Globulin Ratio 1.3 (1.2-2.2); Alkaline Phosphatase 68 U/L (46-116); Anion Gap 16 (7-16); Aspartate Amino Transferase 20 U/L (0-34); BUN/Creatinine Ratio 22 Ratio (12-20); Bilirubin,Total 3.8 mg/dL (0.3-1.2); Blood Urea Nitrogen 22 mg/dL (9-23); Calcium 9.2 mg/dL (8.3-10.6); Calcium (Corrected) 9.4 mg/dL (8.5-10.1); Carbon Dioxide > 40.0 mMol/L (20.0-31.0); Chloride 90 mMol/L (98-107); Creatinine (Component) 1.0 mg/dL (0.6-1.3); Estimated Creatinine Clearance 78.0 mL/min (>60); Globulin 2.8 gm/dL (2.3-3.5); Glucose 100 mg/dL (74-106); Magnesium 1.8 mg/dL (1.6-2.6); Osmolality,Calculated 293 (275-295); Phosphorous 2.7 mg/dL (2.4-5.1); Potassium 3.6 mMol/L (3.4-5.1); Sodium 146 mMol/L (136-145); Total Protein 6.5 gm/dL (5.7-8.2); eGFR > 60 See Note
[2025-04-08] MEDS: FUROSEMIDE INJ 10 MG/ML 4ML VIAL 40 MG IVP ×2 (08:47→21:03)
[2025-04-08] MEDS: LOSARTAN POTASSIUM 25 MG TABLET 50 MG PO (08:48)
[2025-04-08] MEDS: APIXABAN 2.5 MG TABLET 5 MG PO ×2 (08:48→21:03)
[2025-04-08] MEDS: ASPIRIN EC 81 MG TABEC PO (08:48)
[2025-04-08] MEDS: AZITHROMYCIN INJ 500 MG in SODIUM CHLORIDE 0.9% 250 ML 250 ML 250 MG IV (08:49)
--- NOTE | 2025-04-08 10:03 | PD.RESPRO ---
Documentation for date of: 04/08/25 Subjective Subjective Interval history: Patient seen and examined at the bedside this morning. He reported doing well. He denied any SOB, chest pain, dizziness, headache, abdominal pain, admitted mild orthopnea but denied PND, or palpitations. Reported drinking, but adequate urine output. Negative by 4L in last 24 hours. Continue with Lasix 40 Mg IV twice daily for 1 more day and will plan to discharge in a.m. if patient is doing well. Recommend to start physical therapy for the patient and evaluate his oxygen needs if he needs oxygen via nasal cannula. Presently, patient needs 2 to 3 L oxygen via nasal cannula only at night. Recommend to keep saturation between 88 to 92%. Strict ins and outs, 1500 cc fluid restriction Incorporated with diet Keep magnesium and potassium greater than 2 and 4 respectively all the time TTE was significant for diastolic dysfunction, but unable to grade because of atrial fibrillation, LVEF 60 to 65%. Recommended to further evaluate urine protein level, as it was 2+. Aspirin 81 Mg daily, Eliquis 5 Mg twice daily, metoprolol succinate 100 Mg daily and atorvastatin 40 Mg daily at night to maintain LDL level less than 55 in the setting of past medical history of hypertension, diabetes mellitus and stroke. Atorvastatin 20 Mg was switched to 40 Mg daily at night. Metoprolol succinate 100 Mg daily. Exam Vital Signs Temp Pulse Resp BP Pulse Ox O2 Del Method O2 Flow Rate 97.4 F 101 H 13 142/109 H 92 L Nasal Cannula 2 04/08/25 08:00 04/08/25 08:48 04/08/25 08:00 04/08/25 08:48 04/08/25 08:00 04/08/25 08:00 04/08/25 08:00 FiO2 40 04/08/25 04:00 Narrative Exam General: Obese, cooperative gentleman, no acute distress, Alert and Oriented x 3 HEENT: Moist mucous membranes, oropharynx clear Neck: Supple, No masses, No JVD CVS: Irregularly irregular rate and rhythm, No murmurs, rubs or gallops Lungs: Bibasilar crackles appreciated, mild inspiratory wheeze appreciated, no rhonchi Abd: Mildly distended/ NT, +BS, unable to appreciate any organomegaly Ext: 1+ bilateral lower limb edema, unable to appreciate peripheral pulses in lower limb Skin: Darkening of bilateral lower legs Psych: Appropriate mood and affect Objective Labs 04/08/25 04:37 04/08/25 04:37 Labs: Laboratory Results - last 24 hr 04/07/25 04/08/25 10:54 04:37 WBC 9.8 RBC 5.82 Hgb 15.7 Hct 50.8 MCV 87 MCH 27.0 MCHC 30.9 L RDW Std Deviation 49.6 H Plt Count 171 Neut % (Auto) 80 Lymph % (Auto) 10 [place] % (Auto) 9 Eos % (Auto) 1 Baso % (Auto) 0 Neut # (Auto) 7.8 H Lymph # (Auto) 0.9 L [place] # (Auto) 0.9 H Eos # (Auto) 0.1 Baso # (Auto) 0.0 Immature Gran # (Auto) 0.02 H Absolute Nucleated RBC 0.00 Immature Gran % 0 Nucleated RBC % 0 VBG pH 7.40 VBG pCO2 67 H D VBG pO2 76 H VBG O2 Sat (Ravi) 96 VBG Base Excess 13 H Sodium 146 H Potassium 3.6 D Chloride 90 L Carbon Dioxide > 40.0 H Anion Gap 16 BUN 22 Creatinine 1.0 Estim Creat Clear Calc 78.0 eGFR > 60 BUN/Creatinine Ratio 22 H Glucose 100 Calculated Osmolality 293 Calcium 9.2 Corrected Calcium 9.4 Phosphorus 2.7 Magnesium 1.8 Total Bilirubin 3.8 H D AST 20 ALT 10 Alkaline Phosphatase 68 Total Protein 6.5 Albumin 3.7 Globulin 2.8 Albumin/Globulin Ratio 1.3 ABG Interpretation ABG results: 04/04/25 04/04/25 04/04/25 13:42 17:07 18:33 ABG pH 7.14 L* 7.20 L ABG pCO2 107 H* 111 H* ABG pO2 85 78 L ABG HCO3 36 H 39 H ABG O2 Saturation 94 92 ABG Base Excess 4 H 6 H VBG pH 7.48 VBG pCO2 50 VBG pO2 82 H VBG Base Excess 11 H 04/04/25 04/04/25 04/04/25 19:35 22:40 23:52 ABG pH 7.16 L* 7.59 H D 7.53 H ABG pCO2 113 H* 37 D 45 ABG pO2 53 L* D 194 H D 87 D ABG HCO3 40 H 36 H 37 H ABG O2 Saturation 78 L 101 H 99 H ABG Base Excess 7 H 13 H 13 H VBG pH VBG pCO2 VBG pO2 VBG Base Excess 04/05/25 04/05/25 04/05/25 01:20 04:52 13:02 ABG pH 7.52 H 7.47 H 7.30 L D ABG pCO2 47 50 H 74 H* D ABG pO2 60 L D 60 L 64 L ABG HCO3 38 H 37 H 37 H ABG O2 Saturation 94 93 89 L ABG Base Excess 13 H 11 H 7 H VBG pH VBG pCO2 VBG pO2 VBG Base Excess 04/06/25 04/07/25 03:55 10:54 ABG pH 7.36 ABG pCO2 70 H ABG pO2 101 D ABG HCO3 39 H ABG O2 Saturation 98 ABG Base Excess 10 H VBG pH 7.40 VBG pCO2 67 H D VBG pO2 76 H VBG Base Excess 13 H Quality Measures Quality Measures VTE prophylaxis Advance care planning discussed with:: patient and sibling Assessment & Plan Assessment Current Active Medications: Generic Name Dose Route Start Last Admin Trade Name Freq PRN Reason Stop Dose Admin Acetaminophen 650 mg 04/04/25 17:27 Acetaminophen 325 Mg Tablet PO 05/04/25 17:26 Q6H PRN Fever >100 or pain 1-3 Apixaban 5 mg 04/07/25 21:00 04/08/25 08:48 Apixaban 2.5 Mg Tablet PO 05/07/25 20:59 5 mg BID JOSELUIS Administration Aspirin 81 mg 04/05/25 09:00 04/08/25 08:48 Aspirin Ec 81 Mg Tabec PO 05/05/25 08:59 81 mg QDAY JOSELUIS Administration Atorvastatin Calcium 40 mg 04/07/25 21:00 04/07/25 20:43 Atorvastatin Calcium 20 Mg Tablet PO 05/07/25 20:59 40 mg HS JOSELUIS Administration Dextrose 25 ml 04/04/25 17:38 Dextrose 50%-Water Inj 50 Ml Syringe IV 05/04/25 17:37 Q15MIN PRN BG 50-70 responsive npo pt Dextrose 50 ml 04/04/25 17:38 Dextrose 50%-Water Inj 50 Ml Syringe IV 05/04/25 17:37 Q15MIN PRN BG <50 OR BG <70 & pt unresponsive Furosemide 40 mg 04/06/25 21:00 04/08/25 08:47 Furosemide Inj 10 Mg/Ml 4ml Vial IVP 05/06/25 20:59 40 mg BID JOSELUIS Administration Glucagon 1 mg 04/04/25 17:38 Glucagon Inj 1 Mg Vial IM Q15MIN PRN BG <70, and no IV access Piperacillin Sod/Tazobactam 100 mls @ 200 mls/hr 04/05/25 03:00 04/08/25 05:00 Sod 4.5 gm/ Sodium Chloride IV 04/12/25 02:59 200 mls/hr Q6HR JOSELUIS Administration Azithromycin 500 mg/ Sodium 250 mls @ 250 mls/hr 04/05/25 08:56 04/08/25 08:49 Chloride IV 04/09/25 08:55 250 mls/hr QDAY JOSELUIS Administration Insulin Glargine 5 unit 04/06/25 21:00 04/07/25 20:43 Insulin Glargine (Lantus) 5 Unit/0.05 Ml (Per 5 Units) SC 05/06/25 20:59 5 unit HS JOSELUIS Administration Insulin Human Lispro 0 unit 04/07/25 07:30 04/08/25 07:48 Insulin Lispro (Admelog) 1 Unit/0.01 Ml Unit SC 05/07/25 07:29 Not Given ACHS JOSELUIS Protocol Ipratropium [place] 0.5 mg 04/07/25 07:45 04/08/25 06:56 Ipratropium Rt 0.5 Mg/ 2.5 Ml Nebu INH 05/07/25 07:44 0.5 mg Q8HRRT JOSELUIS Administration Levalbuterol HCl 1.25 mg 04/07/25 07:45 04/08/25 06:56 Levalbuterol Rt 1.25 Mg/0.5 Ml Nebu INH 05/07/25 07:44 1.25 mg Q8HRRT JOSELUIS Administration Losartan Potassium 50 mg 04/08/25 09:00 04/08/25 08:48 Losartan Potassium 25 Mg Tablet PO 05/08/25 08:59 50 mg QDAY JOSELUIS Administration Metoprolol Succinate 100 mg 04/06/25 21:00 04/07/25 20:40 Metoprolol Succinate Xl 25 Mg Tabcr PO 05/06/25 20:59 100 mg HS JOSELUIS Administration Montelukast Sodium 10 mg 04/05/25 09:00 04/06/25 09:26 Montelukast Sodium 10 Mg Tablet PO 05/05/25 08:59 10 mg QDAY JOSELUIS Administration Ondansetron HCl 4 mg 04/04/25 17:32 Ondansetron Inj 2 Mg/Ml Inj 2 Ml IVP 05/04/25 17:31 Q6H PRN NAUSEA OR VOMITING Protocol Pantoprazole Sodium 40 mg 04/05/25 09:00 04/08/25 08:47 Pantoprazole Inj 40 Mg Vial IVP 05/05/25 08:59 40 mg QDAY JOSELUIS Administration Sodium Chloride 3 ml 04/04/25 17:27 Sodium Chloride Rt Zo 0.9% 3 Ml Nebu INH 05/04/25 17:26 PRN PRN SOLN Plan The patient is a 74-year-old male with past medical history significant for hypertension, possible CAD, chronic A-fib, type 2 diabetes mellitus, MOUNIKA and acute CVA in 2019 presented to ED with chief complaint of worsening SOB for the past couple of months is currently being managed for acute on chronic hypoxic respiratory failure. Cardiology consultation was done for further management of possible new onset CHF exacerbation in the setting of longstanding atrial fibrillation. #Acute on chronic hypoxic respiratory failure 2/2 S/P extubation #New onset diastolic CHF exacerbation, in the setting of #Chronic atrial fibrillation #MOUNIKA Patient presented with chief complaint of worsening of SOB for past couple of months, visited PCP for 2 times, was given some medications that did not help at all. The patient has history of longstanding atrial fibrillation diagnosed about 5 years ago, but patient is unaware of the situation. Physical exam is significant for generalized anasarca. Liver enzymes WNL, though suspicious for cirrhosis as there is irregular liver counter, but synthetic and detoxification function of liver is intact, suggestive of more likely acute new onset CHF exacerbation. TSH 1.35 [id number] score of 6 - Diuresing well - Aggressive diuretics with Lasix 40 Mg IV twice daily - Metoprolol succinate 100 Mg daily at night for rate control - We will review the TTE film - Maintain potassium and magnesium greater than 4 and greater than 2 all the time - Strict ins and out, fluid restriction of 1500 cc daily - Low-sodium diet - Patient education regarding CHF and atrial fibrillation - CPAP/BiPAP at night, as needed at daytime - Telemetry monitoring - Eliquis 5 Mg twice daily Continue with Lasix 40 Mg IV twice daily for 1 more day and will plan to discharge in a.m. if patient is doing well. Recommend to start physical therapy for the patient and evaluate his oxygen needs if he needs oxygen via nasal cannula. Presently, patient needs 2 to 3 L oxygen via nasal cannula only at night. Recommend to keep saturation between 88 to 92%. #Past medical history of acute CVA in 2019 #Hypertension #Hyperlipidemia #Possible CAD LDL 73 Blood pressure soft at this time -Aspirin 81 Mg daily -Lipitor 40 Mg daily at night, to maintain LDL level less than 55 in the setting of hypertension, diabetes mellitus type 2 and past medical history of CVA -Antihypertensive will be adjusted given the patient's heart rate and blood pressure, currently started on metoprolol succinate 100 Mg daily at night #DM type II, A1c 6.9 #Rule out cirrhosis #Proteinuria, to be further evaluated Rest of the management deferred to primary hospitalist team. Thank you for consulting cardiology team. We appreciate the opportunity to participate in this patient's care. Cardiology team will continue to follow-up on this patient care. The patient's management plan was discussed with my attending physician MD Escobar Torres MD, PGY3 Attending Provider Attestation/Addendum I have personally seen and examined the patient separately on the above date of service and discussed the plan of care with the resident. I reviewed the resident Dr. Escobar Francis consultation progress note and agree with the resident findings and plan in the note above and have also edited the documentation to reflect my findings and plan. Luis Toney M.D. Interventional Cardiology
[2025-04-08] MEDS: INSULIN LISPRO (AdmeLOG) 1 UNIT/0.01 ML UNIT SC ×2 (12:08→21:09)
--- NOTE | 2025-04-08 14:29 | PD.RESPRO ---
Documentation for date of: 04/08/25 Subjective Subjective Interval history: No acute overnight events. Denies new or worsening symptoms. Shortness of breath improving, currently on 3 L NC which is baseline for him. Denies fever, chills, headaches, chest pain, sob, cough, GI or urinary symptoms. Continued on BiPAP at night. Will likely discharge tomorrow if symptoms continue to improve. Will need TRELEGY on discharge. Exam Vital Signs Temp Pulse Resp BP Pulse Ox O2 Del Method O2 Flow Rate 97.4 F 101 H 13 136/90 H 92 L Nasal Cannula 2 04/08/25 08:00 04/08/25 09:00 04/08/25 08:00 04/08/25 09:00 04/08/25 08:00 04/08/25 08:00 04/08/25 08:00 FiO2 40 04/08/25 04:00 Narrative Exam General: Obese, cooperative gentleman, no acute distress, Alert and Oriented x 3 HEENT: Moist mucous membranes, oropharynx clear Neck: Supple, No masses, No JVD CVS: Irregularly irregular rate and rhythm, No murmurs, rubs or gallops Lungs: Bibasilar crackles appreciated, mild inspiratory wheeze appreciated, no rhonchi Abd: Severely distended, fluid thrill positive, +BS, unable to appreciate any organomegaly due to anasarca Ext: Anasarca, 4-5+ bilateral lower limb edema, unable to appreciate peripheral pulses in lower limb Skin: Darkening of bilateral lower legs Psych: Appropriate mood and affect Objective Labs 04/09/25 06:25 04/09/25 06:25 Labs: Laboratory Results - last 24 hr 04/08/25 04:37 WBC 9.8 RBC 5.82 Hgb 15.7 Hct 50.8 MCV 87 MCH 27.0 MCHC 30.9 L RDW Std Deviation 49.6 H Plt Count 171 Neut % (Auto) 80 Lymph % (Auto) 10 [place] % (Auto) 9 Eos % (Auto) 1 Baso % (Auto) 0 Neut # (Auto) 7.8 H Lymph # (Auto) 0.9 L [place] # (Auto) 0.9 H Eos # (Auto) 0.1 Baso # (Auto) 0.0 Immature Gran # (Auto) 0.02 H Absolute Nucleated RBC 0.00 Immature Gran % 0 Nucleated RBC % 0 Sodium 146 H Potassium 3.6 D Chloride 90 L Carbon Dioxide > 40.0 H Anion Gap 16 BUN 22 Creatinine 1.0 Estim Creat Clear Calc 78.0 eGFR > 60 BUN/Creatinine Ratio 22 H Glucose 100 Calculated Osmolality 293 Calcium 9.2 Corrected Calcium 9.4 Phosphorus 2.7 Magnesium 1.8 Total Bilirubin 3.8 H D AST 20 ALT 10 Alkaline Phosphatase 68 Total Protein 6.5 Albumin 3.7 Globulin 2.8 Albumin/Globulin Ratio 1.3 ABG Interpretation ABG results: 04/04/25 04/04/25 04/04/25 13:42 17:07 18:33 ABG pH 7.14 L* 7.20 L ABG pCO2 107 H* 111 H* ABG pO2 85 78 L ABG HCO3 36 H 39 H ABG O2 Saturation 94 92 ABG Base Excess 4 H 6 H VBG pH 7.48 VBG pCO2 50 VBG pO2 82 H VBG Base Excess 11 H 04/04/25 04/04/25 04/04/25 19:35 22:40 23:52 ABG pH 7.16 L* 7.59 H D 7.53 H ABG pCO2 113 H* 37 D 45 ABG pO2 53 L* D 194 H D 87 D ABG HCO3 40 H 36 H 37 H ABG O2 Saturation 78 L 101 H 99 H ABG Base Excess 7 H 13 H 13 H VBG pH VBG pCO2 VBG pO2 VBG Base Excess 04/05/25 04/05/25 04/05/25 01:20 04:52 13:02 ABG pH 7.52 H 7.47 H 7.30 L D ABG pCO2 47 50 H 74 H* D ABG pO2 60 L D 60 L 64 L ABG HCO3 38 H 37 H 37 H ABG O2 Saturation 94 93 89 L ABG Base Excess 13 H 11 H 7 H VBG pH VBG pCO2 VBG pO2 VBG Base Excess 04/06/25 04/07/25 03:55 10:54 ABG pH 7.36 ABG pCO2 70 H ABG pO2 101 D ABG HCO3 39 H ABG O2 Saturation 98 ABG Base Excess 10 H VBG pH 7.40 VBG pCO2 67 H D VBG pO2 76 H VBG Base Excess 13 H Quality Measures Quality Measures VTE prophylaxis Advance care planning discussed with:: patient Assessment & Plan Assessment Current Active Medications: Generic Name Dose Route Start Last Admin Trade Name Vamsi PRN Reason Stop Dose Admin Acetaminophen 650 mg 04/04/25 17:27 Acetaminophen 325 Mg Tablet PO 05/04/25 17:26 Q6H PRN Fever >100 or pain 1-3 Apixaban 5 mg 04/07/25 21:00 04/08/25 08:48 Apixaban 2.5 Mg Tablet PO 05/07/25 20:59 5 mg BID JOSELUIS Administration Aspirin 81 mg 04/05/25 09:00 04/08/25 08:48 Aspirin Ec 81 Mg Tabec PO 05/05/25 08:59 81 mg QDAY JOSELUIS Administration Atorvastatin Calcium 40 mg 04/07/25 21:00 04/07/25 20:43 Atorvastatin Calcium 20 Mg Tablet PO 05/07/25 20:59 40 mg HS JOSELUIS Administration Dextrose 25 ml 04/04/25 17:38 Dextrose 50%-Water Inj 50 Ml Syringe IV 05/04/25 17:37 Q15MIN PRN BG 50-70 responsive npo pt Dextrose 50 ml 04/04/25 17:38 Dextrose 50%-Water Inj 50 Ml Syringe IV 05/04/25 17:37 Q15MIN PRN BG <50 OR BG <70 & pt unresponsive Furosemide 40 mg 04/06/25 21:00 04/08/25 08:47 Furosemide Inj 10 Mg/Ml 4ml Vial IVP 05/06/25 20:59 40 mg BID JOSELUIS Administration Glucagon 1 mg 04/04/25 17:38 Glucagon Inj 1 Mg Vial IM Q15MIN PRN BG <70, and no IV access Piperacillin Sod/Tazobactam 100 mls @ 200 mls/hr 04/05/25 03:00 04/08/25 12:08 Sod 4.5 gm/ Sodium Chloride IV 04/12/25 02:59 200 mls/hr Q6HR JOSELUIS Administration Insulin Glargine 5 unit 04/06/25 21:00 04/07/25 20:43 Insulin Glargine (Lantus) 5 Unit/0.05 Ml (Per 5 Units) SC 05/06/25 20:59 5 unit HS JOSELUIS Administration Insulin Human Lispro 0 unit 04/07/25 07:30 04/08/25 12:08 Insulin Lispro (Admelog) 1 Unit/0.01 Ml Unit SC 05/07/25 07:29 1 unit ACHS JOSELUIS Administration Protocol Ipratropium [place] 0.5 mg 04/07/25 07:45 04/08/25 06:56 Ipratropium Rt 0.5 Mg/ 2.5 Ml Nebu INH 05/07/25 07:44 0.5 mg Q8HRRT JOSELUIS Administration Levalbuterol HCl 1.25 mg 04/07/25 07:45 04/08/25 06:56 Levalbuterol Rt 1.25 Mg/0.5 Ml Nebu INH 05/07/25 07:44 1.25 mg Q8HRRT JOSELUIS Administration Losartan Potassium 50 mg 04/08/25 09:00 04/08/25 08:48 Losartan Potassium 25 Mg Tablet PO 05/08/25 08:59 50 mg QDAY JOSELUIS Administration Metoprolol Succinate 100 mg 04/06/25 21:00 04/07/25 20:40 Metoprolol Succinate Xl 25 Mg Tabcr PO 05/06/25 20:59 100 mg HS JOSELUIS Administration Montelukast Sodium 10 mg 04/05/25 09:00 04/06/25 09:26 Montelukast Sodium 10 Mg Tablet PO 05/05/25 08:59 10 mg QDAY JOSELUIS Administration Ondansetron HCl 4 mg 04/04/25 17:32 Ondansetron Inj 2 Mg/Ml Inj 2 Ml IVP 05/04/25 17:31 Q6H PRN NAUSEA OR VOMITING Protocol Pantoprazole Sodium 40 mg 04/05/25 09:00 04/08/25 08:47 Pantoprazole Inj 40 Mg Vial IVP 05/05/25 08:59 40 mg QDAY JOSELUIS Administration Sodium Chloride 3 ml 04/04/25 17:27 Sodium Chloride Rt Zo 0.9% 3 Ml Nebu INH 05/04/25 17:26 PRN PRN SOLN Plan Assessment 74-year-old male with past medical history A-fib on Eliquis, hypertension, type 2 diabetes mellitus [id number], obstructive sleep apnea who presented to the ED 04/04/2025 with shortness of breath. He was started on BiPAP but deteriorated with worsening respiratory acidosis and hypercapnia due to intubation and admission to the ICU. #CHF exacerbation. #Fluid overload status. #Hypertension. Echo shows severe SAM, which could mean severe aortic regurgitation, however RSVP very minimally elevated which is something we did not expect We suspected possible right-sided heart failure or moderate pulmonary hypertension Cardiology team to relook at echo images as well Good response to diuresis, had about 5 L urine output yesterday, no signs of overload on exam. Oxygenation improved, currently on 3 L NC which is baseline for him Plan: ? Lasix 40 mg IV twice daily ? Holding home amlodipine and losartan. ? Metoprolol XL 100 mg daily ? Resumed home losartan 50 mg ? Will need TRELEGY on discharge. #Chronic Afib. CHADVASC2:6 HAS-BLED: 3 Plan: ? Metoprolol XL 100 mg daily ? Telemetry ? Eliquis 5 mg twice daily ? Keep mag and potassium above 2 and 4 respectively #Acute on chronic hypoxic hypercapnic respiratory failure. #Hx Asthma #Bradypnea. #Primary respiratory acidosis with secondary metabolic alkalosis. #Mechanical ventilation. #Hx of MOUNIKA. - Patient's hypercapnia was improving with end-tidal CO2 in the low 60s prior to extubation, RSBI 22 - Patient denies any history of COPD Differentials: -Consider central sleep apnea, asthma, pneumonia, related to hypercapnia Diagnostic Work Up: - ABG 04/06/2025 showed pH 7.36, pCO2 70, [id number], HCO3 39. - Chest x-ray showed moderate vascular congestion along with bibasilar pneumonia 04/04/2025. Patient will need strict follow-up and will need to have a CPAP machine upon discharge as if patient continues to be noncompliant with CPAP will bounce right back into the emergency room for CO2 narcosis and respiratory acidosis Pt's bicarbonate on CHEM panel appears to be above 40, as this is renal response to chronic respiratory acidosis Patient is not requiring additional oxygen at this time, however will assess pH status with a VBG to see patient's new baseline with chronic renal compensation for respiratory acidosis Plan: - Patient extubated -Titrate nasal cannula oxygen flow with O2 saturation - Steroids discontinued 04/05/2025 low suspicion of COPD exacerbation - Holding montelukast - biPAP at night ? Retaining CO2 despite BiPAP, repeat VBG in a.m. 04/09 #CAP Pneumonia Bibasilar pneumonia on chest x-ray 04/04/2025. Most likely aspiration, AZITHROMYCIN discontinued. Plan: - Continue ZOSYN - Follow-up sputum cultures. #Hepatomegaly #Hyperbilirubinemia Differential diagnosis: - Consider liver dysfunction in relation to decreasing mentation on day of admission in combination with CT findings - Consider Columbia syndrome in the setting of increased indirect bilirubin, hepatomegaly, and plan of mentation on day of admission in the setting of acute respiratory distress - CT demonstrated hepatomegaly 04/04/2025 - Total bilirubin 1.5 down from 2.8, direct bilirubin 0.6 04/06/2025 - Calculated indirect bilirubin is 0.9, high end of normal range - Liver ultrasound 04/06/2025 was negative for cholelithiasis, showed borderline thickening of the gallbladder wall, hepatomegaly, possible fatty infiltration, no focal liver lesions - Follow up hepatitis panel Plan: ? Trend CMP - Follow-up outpatient GI ? Considering additional liver markers #Hematuria Diagnostic workup: - 2+ protein, 3+ RBCs on urinalysis - Consider trauma from [place] catheter insertion. Plan: - Continue to monitor - Zosyn on board for pneumonia, should cover gram-negative UTI however low likelihood #Acute kidney injury, improving DDx: Prerenal versus ATN versus obstructive Could be related to diuresis OUP 1100 mL Plan: ?Avoid nephrotoxic agents ? Renally dose medicines ? Strict I's and O's #Non insulin dependent Type II Diabetes mellitus A1c 6.9 Plan: ? Sliding scale insulin ? Hypoglycemic protocol in place ? Blood sugar checks with meals Plan: - Bedside blood glucose every 6 hours. - Titrate sliding scale insulin. #Hx of CVA. Per family patient had stroke 3 years ago, no residual deficit, head CT unremarkable. Plan: - Continue home aspirin and atorvastatin. #Normocytic normochromic anemia Diagnostic Work Up: - Hemoglobin 14 hematocrit 46.8 Plan: - Continue to monitor with morning CBCs #Hypervolemic Hypernatremia, resolved #Hypomagnesemia (resolved) #Health Maintenance Disposition: Telemetry DVT prophylaxis: Eliquis GI prophylaxis: Protonix Diet: Cardiac CODE STATUS: Full Patient seen and care discussed with my attending physician, Dr. Sony Harvey, PGY-2 Attending Provider Attestation/Addendum I have examined the patient, reviewed labs and imaging findings, discussed the case with the resident(s), and reviewed entered orders. I agree with the plan of care as outlined in this note, with these additional summaries/recommendations: Patient seen at bedside. No acute overnight events. Patient appears at baseline mental status and his acute encephalopathy resolved. Continue CPAP whenever patient is sleeping. He is chronic C02 retainer secondary to MOUNIKA/OHS +/- COPD. He denies previous history of COPD and reports he has undergone 3 sleep studies. He reports he previously had a machine at home but stopped using as he did not like the mask. Discussed with patient that he needs to be compliant with his CPAP mask. He will need a repeat sleep study outpatient. Case management working on arranging trilogy machine for patient. Continue breathing treatments as needed and abx for superimposed bacterial pneumonia. Patient's Eliquis adjusted to appropriate dose for atrial fibrillation. Continue rate control with metoprolol. Continue IV diuresis for new onset CHF. Echocardiogram being reviewed. Continue atorvastatin for hyperlipidemia. Continue basal and bolus insulin for diabetes mellitus type 2. Patient and updated on the plan and in agreement. All questions answered to satisfaction. Please see residents note for additional details and management. Dr. Sony MD
[2025-04-08] MEDS: METOPROLOL SUCCINATE XL 25 MG TABCR 100 MG PO (21:02)
[2025-04-08] MEDS: ATORVASTATIN CALCIUM 20 MG TABLET 40 MG PO (21:03)
[2025-04-08] MEDS: INSULIN GLARGINE (Lantus) 5 UNIT/0.05 ML (PER 5 UNITS) SC (21:09)
[2025-04-09] VITALS (16 sets, daily range): BP systolic 105–167; BP diastolic 71–119; PULSE 89–136; RESP 12–95; TEMP 35.9–36.9; O2SAT 91–100; BMI 36.8; BMI 13.0
[2025-04-09] MEDS: PIPER/TAZO INJ 4.5 GM in SODIUM CHLORIDE 0.9% (POP) 100 ML IV ×3 (00:13→11:45)
[2025-04-09] MEDS: METOPROLOL TARTRATE INJ 1 MG/ML AMP 5 ML 5 MG IVP (02:42)
[2025-04-09 04:52] LABS: Allen Test Performed/OK; Base Excess 21 (-3-3); HCO3 49 mEq/L (20-26); Inspired Oxygen, FIO2 28 %; O2 Saturation 91 % (91-98); PCO2 63 mmHg (32.0-48.0); Puncture Site Right Radial; pH, Arterial 7.50 (7.35-7.45)
[2025-04-09 04:54] LABS: PO2 57 mmHg (83-108)
[2025-04-09 06:37] LABS: Base Excess, Venous 21 (-3-3); O2 Saturation, Venous 82 % (96-97); PCO2, Venous 52 mmHg (36-56); PO2, Venous 43 mmHg (15-58); pH, Venous 7.56 (7.33-7.66)
[2025-04-09 06:40] LABS: Basophils # (Auto) 0.0 Thou/mm3 (0.0-0.2); Basophils % (Auto) 0 % (0-2.5); Eosinophils # (Auto) 0.0 Thou/mm3 (0.0-0.5); Eosinophils % (Auto) 0 % (0-10); Hematocrit 53.7 % (41.0-53.0); Hemoglobin 16.9 g/dL (13.5-16.0); Immature Granulocytes Auto 0.06 Thou/mm3 (0.00-0.00); Lymphocytes # (Auto) 0.9 Thou/mm3 (1.0-4.8); Lymphocytes % (Auto) 7 % (10-50); Mean Corpuscular HGB Conc 31.5 g/dl (31.0-37.0); Mean Corpuscular Hemoglobin 27.2 pg (25.0-35.0); Mean Corpuscular Volume 87 fL (80-100); Monocytes # (Auto) 1.2 Thou/mm3 (0.0-0.8); Monocytes % (Auto) 9 % (0-12); Neutrophils # (Auto) 11.9 Thou/mm3 (1.8-7.7); Neutrophils % (Auto) 84 % (37-80); Nucleated Red Blood Cell # 0.00 Thou/mm3 (0.00-0.00); Nucleated Red Blood Cell % 0 /100 WBC (0); Platelet Count 183 Thou/mm3 (140-440); RDW Standard Deviation 48.9 fL (35.1-43.9); Red Blood Count 6.21 Miln/mm3 (4.50-5.90); White Blood Count 14.2 Thou/mm3 (3.8-10.6)
[2025-04-09] MEDS: LEVALBUTEROL RT 1.25 MG/0.5 ML NEBU INH ×3 (06:58→23:58)
[2025-04-09] MEDS: IPRATROPIUM RT 0.5 MG/ 2.5 ML NEBU INH ×3 (06:58→23:58)
[2025-04-09 07:11] LABS: Alanine Aminotransferase 15 U/L (10-49); Albumin, Serum 3.9 gm/dL (3.4-4.8); Albumin/Globulin Ratio 1.3 (1.2-2.2); Alkaline Phosphatase 78 U/L (46-116); Anion Gap 14 (7-16); Aspartate Amino Transferase 24 U/L (0-34); BUN/Creatinine Ratio 21 Ratio (12-20); Bilirubin,Total 4.5 mg/dL (0.3-1.2); Blood Urea Nitrogen 29 mg/dL (9-23); Calcium 9.3 mg/dL (8.3-10.6); Calcium (Corrected) 9.4 mg/dL (8.5-10.1); Carbon Dioxide > 40.0 mMol/L (20.0-31.0); Chloride 89 mMol/L (98-107); Creatinine (Component) 1.4 mg/dL (0.6-1.3); Estimated Creatinine Clearance 55.6 mL/min (>60); Globulin 3.0 gm/dL (2.3-3.5); Glucose 142 mg/dL (74-106); Magnesium 1.2 mg/dL (1.6-2.6); Osmolality,Calculated 292 (275-295); Phosphorous 2.4 mg/dL (2.4-5.1); Potassium 3.6 mMol/L (3.4-5.1); Sodium 143 mMol/L (136-145); Total Protein 6.9 gm/dL (5.7-8.2); eGFR 52 See Note
[2025-04-09] MEDS: INSULIN LISPRO (AdmeLOG) 1 UNIT/0.01 ML UNIT SC ×3 (07:40→20:56)
[2025-04-09] MEDS: Magnesium Sulfate 4 GM Ivpb 4 GM/50 ML BAG IV ×2 (08:29→15:06)
[2025-04-09] MEDS: POTASSIUM CHL 10 mEq IVPB 10 MEQ/100 ML BAG 50 MEQ IV (08:29)
[2025-04-09] MEDS: LOSARTAN POTASSIUM 25 MG TABLET 50 MG PO (08:30)
[2025-04-09] MEDS: APIXABAN 2.5 MG TABLET 5 MG PO ×2 (08:31→20:55)
[2025-04-09] MEDS: ASPIRIN EC 81 MG TABEC PO (08:31)
--- NOTE | 2025-04-09 09:09 | PD.RESPRO ---
Documentation for date of: 04/09/25 Subjective Subjective Interval history: Patient seen and examined at the bedside this morning. He seemed a little bit confused. Overnight he was unable to tolerate BiPAP and BiPAP was discontinued for short time after which he was confused and replaced in Bipap. He denied any SOB, chest pain, dizziness, headache, abdominal pain, admitted mild orthopnea but denied PND, or palpitations. Reported drinking, but adequate urine output. Negative by ~ 9L since admission Hold off on lasix due to concern regarding mild and contraction alkalosis. Pt was given 1L of total IV fluids. Continue on BiPAP. Recommend to start physical therapy for the patient and evaluate his oxygen needs if he needs oxygen via nasal cannula. Presently, patient needs 2 to 3 L oxygen via nasal cannula only at night. Recommend to keep saturation between 88 to 92%. Strict ins and outs, 2L fluid restriction Incorporated with diet Keep magnesium and potassium greater than 2 and 4 respectively all the time TTE was significant for diastolic dysfunction, but unable to grade because of atrial fibrillation, LVEF 60 to 65%. Recommended to further evaluate urine protein level, as it was 2+. Aspirin 81 Mg daily, Eliquis 5 Mg twice daily, metoprolol succinate 100 Mg daily and atorvastatin 40 Mg daily at night to maintain LDL level less than 55 in the setting of past medical history of hypertension, diabetes mellitus and stroke. Atorvastatin 20 Mg was switched to 40 Mg daily at night. Metoprolol succinate 100 Mg daily. Exam Vital Signs Temp Pulse Resp BP Pulse Ox O2 Del Method O2 Flow Rate 97.2 F 116 H 18 162/98 H 100 BiPAP 2 04/09/25 04:00 04/09/25 08:30 04/09/25 06:59 04/09/25 08:30 04/09/25 06:59 04/09/25 04:00 04/09/25 00:00 FiO2 40 04/09/25 06:59 Narrative Exam General: Obese, cooperative gentleman, no acute distress, mildly confused HEENT: Moist mucous membranes, oropharynx clear Neck: Supple, No masses, No JVD CVS: Irregularly irregular rate and rhythm, No murmurs, rubs or gallops Lungs: Clear lung sounds, no wheeze or crackles, no rhonchi Abd: Mildly distended/ NT, +BS, unable to appreciate any organomegaly Ext: No peripheral edema, palpable peripheral pulses Skin: Darkening of bilateral lower legs Psych: Appropriate mood and affect Objective Labs 04/09/25 06:25 04/09/25 17:40 Labs: Laboratory Results - last 24 hr 04/09/25 04/09/25 04:42 06:25 WBC 14.2 H D RBC 6.21 H Hgb 16.9 H Hct 53.7 H MCV 87 MCH 27.2 MCHC 31.5 RDW Std Deviation 48.9 H Plt Count 183 Neut % (Auto) 84 H Lymph % (Auto) 7 L [place] % (Auto) 9 Eos % (Auto) 0 Baso % (Auto) 0 Neut # (Auto) 11.9 H Lymph # (Auto) 0.9 L [place] # (Auto) 1.2 H Eos # (Auto) 0.0 Baso # (Auto) 0.0 Immature Gran # (Auto) 0.06 H Absolute Nucleated RBC 0.00 Immature Gran % 0 Nucleated RBC % 0 Puncture Site Right Radial ABG pH 7.50 H ABG pCO2 63 H ABG pO2 57 L* ABG HCO3 49 H ABG O2 Saturation 91 ABG Base Excess 21 H VBG pH 7.56 VBG pCO2 52 D VBG pO2 43 D VBG O2 Sat (Ravi) 82 L D VBG Base Excess 21 H FiO2 28 Sodium 143 Potassium 3.6 Chloride 89 L Carbon Dioxide > 40.0 H Anion Gap 14 BUN 29 H Creatinine 1.4 H Estim Creat Clear Calc 55.6 L eGFR 52 L BUN/Creatinine Ratio 21 H Glucose 142 H Calculated Osmolality 292 Calcium 9.3 Corrected Calcium 9.4 Phosphorus 2.4 Magnesium 1.2 L Total Bilirubin 4.5 H D AST 24 ALT 15 Alkaline Phosphatase 78 Total Protein 6.9 Albumin 3.9 Globulin 3.0 Albumin/Globulin Ratio 1.3 ABG Interpretation ABG results: 04/04/25 04/04/25 04/04/25 13:42 17:07 18:33 ABG pH 7.14 L* 7.20 L ABG pCO2 107 H* 111 H* ABG pO2 85 78 L ABG HCO3 36 H 39 H ABG O2 Saturation 94 92 ABG Base Excess 4 H 6 H VBG pH 7.48 VBG pCO2 50 VBG pO2 82 H VBG Base Excess 11 H 04/04/25 04/04/25 04/04/25 19:35 22:40 23:52 ABG pH 7.16 L* 7.59 H D 7.53 H ABG pCO2 113 H* 37 D 45 ABG pO2 53 L* D 194 H D 87 D ABG HCO3 40 H 36 H 37 H ABG O2 Saturation 78 L 101 H 99 H ABG Base Excess 7 H 13 H 13 H VBG pH VBG pCO2 VBG pO2 VBG Base Excess 04/05/25 04/05/25 04/05/25 01:20 04:52 13:02 ABG pH 7.52 H 7.47 H 7.30 L D ABG pCO2 47 50 H 74 H* D ABG pO2 60 L D 60 L 64 L ABG HCO3 38 H 37 H 37 H ABG O2 Saturation 94 93 89 L ABG Base Excess 13 H 11 H 7 H VBG pH VBG pCO2 VBG pO2 VBG Base Excess 04/06/25 04/07/25 04/09/25 03:55 10:54 04:42 ABG pH 7.36 7.50 H ABG pCO2 70 H 63 H ABG pO2 101 D 57 L* ABG HCO3 39 H 49 H ABG O2 Saturation 98 91 ABG Base Excess 10 H 21 H VBG pH 7.40 VBG pCO2 67 H D VBG pO2 76 H VBG Base Excess 13 H 04/09/25 06:25 ABG pH ABG pCO2 ABG pO2 ABG HCO3 ABG O2 Saturation ABG Base Excess VBG pH 7.56 VBG pCO2 52 D VBG pO2 43 D VBG Base Excess 21 H Quality Measures Quality Measures VTE prophylaxis Advance care planning discussed with:: sibling Assessment & Plan Assessment Current Active Medications: Generic Name Dose Route Start Last Admin Trade Name Vamsi PRN Reason Stop Dose Admin Acetaminophen 650 mg 04/04/25 17:27 Acetaminophen 325 Mg Tablet PO 05/04/25 17:26 Q6H PRN Fever >100 or pain 1-3 Apixaban 5 mg 04/07/25 21:00 04/09/25 08:31 Apixaban 2.5 Mg Tablet PO 05/07/25 20:59 5 mg BID JOSELUIS Administration Aspirin 81 mg 04/05/25 09:00 04/09/25 08:31 Aspirin Ec 81 Mg Tabec PO 05/05/25 08:59 81 mg QDAY JOSELUIS Administration Atorvastatin Calcium 40 mg 04/07/25 21:00 04/08/25 21:03 Atorvastatin Calcium 20 Mg Tablet PO 05/07/25 20:59 40 mg HS JOSELUIS Administration Dextrose 25 ml 04/04/25 17:38 Dextrose 50%-Water Inj 50 Ml Syringe IV 05/04/25 17:37 Q15MIN PRN BG 50-70 responsive npo pt Dextrose 50 ml 04/04/25 17:38 Dextrose 50%-Water Inj 50 Ml Syringe IV 05/04/25 17:37 Q15MIN PRN BG <50 OR BG <70 & pt unresponsive Furosemide 40 mg 04/06/25 21:00 04/08/25 21:03 Furosemide Inj 10 Mg/Ml 4ml Vial IVP 05/06/25 20:59 40 mg BID JOSELUIS Administration Glucagon 1 mg 04/04/25 17:38 Glucagon Inj 1 Mg Vial IM Q15MIN PRN BG <70, and no IV access Piperacillin Sod/Tazobactam 100 mls @ 200 mls/hr 04/05/25 03:00 04/09/25 05:45 Sod 4.5 gm/ Sodium Chloride IV 04/12/25 02:59 200 mls/hr Q6HR JOSELUIS Administration Potassium Chloride 10 meq in 100 mls @ 100 mls/hr 04/09/25 07:45 04/09/25 08:29 Kcl Ivpb IV 04/09/25 11:44 50 mls/hr Q1H JOSELUIS Administration Magnesium Sulfate 4 gm in 50 mls @ 12.5 mls/hr 04/09/25 07:42 04/09/25 08:29 Magnesium Sulfate Ivpb IV 04/09/25 11:41 12.5 mls/hr X1 ONE Administration Insulin Glargine 5 unit 04/06/25 21:00 04/08/25 21:09 Insulin Glargine (Lantus) 5 Unit/0.05 Ml (Per 5 Units) SC 05/06/25 20:59 5 unit HS JOSELUIS Administration Insulin Human Lispro 0 unit 04/07/25 07:30 04/09/25 07:40 Insulin Lispro (Admelog) 1 Unit/0.01 Ml Unit SC 05/07/25 07:29 1 unit ACHS JOSELUIS Administration Protocol Ipratropium [place] 0.5 mg 04/07/25 07:45 04/09/25 06:58 Ipratropium Rt 0.5 Mg/ 2.5 Ml Nebu INH 05/07/25 07:44 0.5 mg Q8HRRT JOSELUIS Administration Levalbuterol HCl 1.25 mg 04/07/25 07:45 04/09/25 06:58 Levalbuterol Rt 1.25 Mg/0.5 Ml Nebu INH 05/07/25 07:44 1.25 mg Q8HRRT JOSELUIS Administration Losartan Potassium 50 mg 04/08/25 09:00 04/09/25 08:30 Losartan Potassium 25 Mg Tablet PO 05/08/25 08:59 50 mg QDAY JOSELUIS Administration Metoprolol Succinate 100 mg 04/06/25 21:00 04/08/25 21:02 Metoprolol Succinate Xl 25 Mg Tabcr PO 05/06/25 20:59 100 mg HS JOSELUIS Administration Montelukast Sodium 10 mg 04/05/25 09:00 04/06/25 09:26 Montelukast Sodium 10 Mg Tablet PO 05/05/25 08:59 10 mg QDAY JOSELUIS Administration Ondansetron HCl 4 mg 04/04/25 17:32 Ondansetron Inj 2 Mg/Ml Inj 2 Ml IVP 05/04/25 17:31 Q6H PRN NAUSEA OR VOMITING Protocol Pantoprazole Sodium 40 mg 04/05/25 09:00 04/09/25 08:31 Pantoprazole Inj 40 Mg Vial IVP 05/05/25 08:59 40 mg QDAY JOSELUIS Administration Sodium Chloride 3 ml 04/04/25 17:27 Sodium Chloride Rt Zo 0.9% 3 Ml [facility] INH 05/04/25 17:26 PRN PRN SOLN Plan The patient is a 74-year-old male with past medical history significant for hypertension, possible CAD, chronic A-fib, type 2 diabetes mellitus, MOUNIKA and acute CVA in 2019 presented to ED with chief complaint of worsening SOB for the past couple of months is currently being managed for acute on chronic hypoxic respiratory failure. Cardiology consultation was done for further management of possible new onset CHF exacerbation in the setting of longstanding atrial fibrillation. #Acute on chronic hypoxic respiratory failure 2/2 S/P extubation #New onset diastolic CHF exacerbation, in the setting of #Chronic atrial fibrillation #MOUNIKA Patient presented with chief complaint of worsening of SOB for past couple of months, visited PCP for 2 times, was given some medications that did not help at all. The patient has history of longstanding atrial fibrillation diagnosed about 5 years ago, but patient is unaware of the situation. Physical exam is significant for generalized anasarca. Liver enzymes WNL, though suspicious for cirrhosis as there is irregular liver counter, but synthetic and detoxification function of liver is intact, suggestive of more likely acute new onset CHF exacerbation. TSH 1.35 [id number] score of 6 - Diuresed well - Hold diuretics - Metoprolol succinate 100 Mg daily at night for rate control - We will review the TTE film - Maintain potassium and magnesium greater than 4 and greater than 2 all the time - Strict ins and out, fluid restriction of 2000 cc daily - Low-sodium diet - Patient education regarding CHF and atrial fibrillation - CPAP/BiPAP at night, as needed at daytime - Telemetry monitoring - Eliquis 5 Mg twice daily - Recommend to keep saturation between 88 to 92%. Recommend to start physical therapy for the patient and evaluate his oxygen needs if he needs oxygen via nasal cannula. However, overnight patient was unable to tolerate BiPAP, and BiPAP was discontinued for couple hours, and he was found to be confused, and was placed again on BiPAP. Net Negative by ~ 9L since admission Hold off on lasix due to concern regarding mild and contraction alkalosis. Pt was given 1L of total IV fluids. Continue on BiPAP. Recommend to start physical therapy for the patient and evaluate his oxygen needs if he needs oxygen via nasal cannula. Presently, patient needs 2 to 3 L oxygen via nasal cannula only at night. #Past medical history of acute CVA in 2019 #Hypertension #Hyperlipidemia #Possible CAD LDL 73 Blood pressure soft at this time -Aspirin 81 Mg daily -Lipitor 40 Mg daily at night, to maintain LDL level less than 55 in the setting of hypertension, diabetes mellitus type 2 and past medical history of CVA -Antihypertensive will be adjusted given the patient's heart rate and blood pressure, currently started on metoprolol succinate 100 Mg daily at night #DM type II, A1c 6.9 #Rule out cirrhosis #Proteinuria, to be further evaluated Rest of the management deferred to primary hospitalist team. Thank you for consulting cardiology team. We appreciate the opportunity to participate in this patient's care. Cardiology team will continue to follow-up on this patient care. The patient's management plan was discussed with my attending physician MD Escobar Torres MD, PGY3 Attending Provider Attestation/Addendum I have personally seen and examined the patient separately on the above date of service and discussed the plan of care with the resident. I reviewed the resident Dr. Escobar Francis consultation progress note and agree with the resident findings and plan in the note above and have also edited the documentation to reflect my findings and plan. Luis Toney M.D. Interventional Cardiology
[2025-04-09] MEDS: SODIUM CHLORIDE 0.9% 1000 ML 500 ML 20 ML IV (09:56)
[2025-04-09] MEDS: POTASSIUM CHL 10 mEq IVPB 10 MEQ/100 ML BAG 80 MEQ IV ×3 (10:36→14:45)
--- NOTE | 2025-04-09 10:59 | PD.RESPRO ---
Documentation for date of: 04/09/25 Subjective Subjective Interval history: Overnight, he had tachycardia 123 which improved to mid 90s after 1 dose METOPROLOL. Today, HR sustaining in the 110s, BP also elevated 155/91. He was found slightly encephalopathic on exam, ANO x 3, but pointing to invisible objects around the room. Has worsening with CR 1.0 > 1.7. CO2 remains greater than 40, despite BiPAP HS. Blood gas showing contraction alkalosis, with compensatory respiratory acidosis. Diuresis was held. 1 L NS was given. Pending repeat BMP. Will consider DIAMOX if no improvement. Exam Vital Signs Temp Pulse Resp BP Pulse Ox O2 Del Method O2 Flow Rate 98.4 F 116 H 18 162/98 H 97 BiPAP 2 04/09/25 08:00 04/09/25 08:30 04/09/25 08:00 04/09/25 08:30 04/09/25 08:00 04/09/25 04:00 04/09/25 00:00 FiO2 40 04/09/25 06:59 Narrative Exam General: Obese, cooperative gentleman, no acute distress, Alert and Oriented x 3 HEENT: Moist mucous membranes, oropharynx clear Neck: Supple, No masses, No JVD CVS: Irregularly irregular rate and rhythm, No murmurs, rubs or gallops Lungs: Bibasilar crackles appreciated, mild inspiratory wheeze appreciated, no rhonchi Abd: Severely distended, fluid thrill positive, +BS, unable to appreciate any organomegaly due to anasarca Ext: Anasarca, 4-5+ bilateral lower limb edema, unable to appreciate peripheral pulses in lower limb Skin: Darkening of bilateral lower legs Psych: Signs of mild encephalopathy present, mild hallucination. Objective Labs 04/09/25 06:25 04/09/25 11:10 Labs: Laboratory Results - last 24 hr 04/09/25 04/09/25 04:42 06:25 WBC 14.2 H D RBC 6.21 H Hgb 16.9 H Hct 53.7 H MCV 87 MCH 27.2 MCHC 31.5 RDW Std Deviation 48.9 H Plt Count 183 Neut % (Auto) 84 H Lymph % (Auto) 7 L Fisher % (Auto) 9 Eos % (Auto) 0 Baso % (Auto) 0 Neut # (Auto) 11.9 H Lymph # (Auto) 0.9 L Fisher # (Auto) 1.2 H Eos # (Auto) 0.0 Baso # (Auto) 0.0 Immature Gran # (Auto) 0.06 H Absolute Nucleated RBC 0.00 Immature Gran % 0 Nucleated RBC % 0 Puncture Site Right Radial ABG pH 7.50 H ABG pCO2 63 H ABG pO2 57 L* ABG HCO3 49 H ABG O2 Saturation 91 ABG Base Excess 21 H VBG pH 7.56 VBG pCO2 52 D VBG pO2 43 D VBG O2 Sat (Ravi) 82 L D VBG Base Excess 21 H FiO2 28 Sodium 143 Potassium 3.6 Chloride 89 L Carbon Dioxide > 40.0 H Anion Gap 14 BUN 29 H Creatinine 1.4 H Estim Creat Clear Calc 55.6 L eGFR 52 L BUN/Creatinine Ratio 21 H Glucose 142 H Calculated Osmolality 292 Calcium 9.3 Corrected Calcium 9.4 Phosphorus 2.4 Magnesium 1.2 L Total Bilirubin 4.5 H D AST 24 ALT 15 Alkaline Phosphatase 78 Total Protein 6.9 Albumin 3.9 Globulin 3.0 Albumin/Globulin Ratio 1.3 ABG Interpretation ABG results: 04/04/25 04/04/25 04/04/25 13:42 17:07 18:33 ABG pH 7.14 L* 7.20 L ABG pCO2 107 H* 111 H* ABG pO2 85 78 L ABG HCO3 36 H 39 H ABG O2 Saturation 94 92 ABG Base Excess 4 H 6 H VBG pH 7.48 VBG pCO2 50 VBG pO2 82 H VBG Base Excess 11 H 04/04/25 04/04/25 04/04/25 19:35 22:40 23:52 ABG pH 7.16 L* 7.59 H D 7.53 H ABG pCO2 113 H* 37 D 45 ABG pO2 53 L* D 194 H D 87 D ABG HCO3 40 H 36 H 37 H ABG O2 Saturation 78 L 101 H 99 H ABG Base Excess 7 H 13 H 13 H VBG pH VBG pCO2 VBG pO2 VBG Base Excess 04/05/25 04/05/25 04/05/25 01:20 04:52 13:02 ABG pH 7.52 H 7.47 H 7.30 L D ABG pCO2 47 50 H 74 H* D ABG pO2 60 L D 60 L 64 L ABG HCO3 38 H 37 H 37 H ABG O2 Saturation 94 93 89 L ABG Base Excess 13 H 11 H 7 H VBG pH VBG pCO2 VBG pO2 VBG Base Excess 04/06/25 04/07/25 04/09/25 03:55 10:54 04:42 ABG pH 7.36 7.50 H ABG pCO2 70 H 63 H ABG pO2 101 D 57 L* ABG HCO3 39 H 49 H ABG O2 Saturation 98 91 ABG Base Excess 10 H 21 H VBG pH 7.40 VBG pCO2 67 H D VBG pO2 76 H VBG Base Excess 13 H 04/09/25 06:25 ABG pH ABG pCO2 ABG pO2 ABG HCO3 ABG O2 Saturation ABG Base Excess VBG pH 7.56 VBG pCO2 52 D VBG pO2 43 D VBG Base Excess 21 H Quality Measures Quality Measures VTE prophylaxis Advance care planning discussed with:: patient Assessment & Plan Assessment Current Active Medications: Generic Name Dose Route Start Last Admin Trade Name Freq PRN Reason Stop Dose Admin Acetaminophen 650 mg 04/04/25 17:27 Acetaminophen 325 Mg Tablet PO 05/04/25 17:26 Q6H PRN Fever >100 or pain 1-3 Apixaban 5 mg 04/07/25 21:00 04/09/25 08:31 Apixaban 2.5 Mg Tablet PO 05/07/25 20:59 5 mg BID JOSELUIS Administration Aspirin 81 mg 04/05/25 09:00 04/09/25 08:31 Aspirin Ec 81 Mg Tabec PO 05/05/25 08:59 81 mg QDAY JOSELUIS Administration Atorvastatin Calcium 40 mg 04/07/25 21:00 04/08/25 21:03 Atorvastatin Calcium 20 Mg Tablet PO 05/07/25 20:59 40 mg HS JOSELUIS Administration Dextrose 25 ml 04/04/25 17:38 Dextrose 50%-Water Inj 50 Ml Syringe IV 05/04/25 17:37 Q15MIN PRN BG 50-70 responsive npo pt Dextrose 50 ml 04/04/25 17:38 Dextrose 50%-Water Inj 50 Ml Syringe IV 05/04/25 17:37 Q15MIN PRN BG <50 OR BG <70 & pt unresponsive Furosemide 40 mg 04/06/25 21:00 04/08/25 21:03 Furosemide Inj 10 Mg/Ml 4ml Vial IVP 05/06/25 20:59 40 mg BID JOSELUIS Administration Glucagon 1 mg 04/04/25 17:38 Glucagon Inj 1 Mg Vial IM Q15MIN PRN BG <70, and no IV access Piperacillin Sod/Tazobactam 100 mls @ 200 mls/hr 04/05/25 03:00 04/09/25 05:45 Sod 4.5 gm/ Sodium Chloride IV 04/12/25 02:59 200 mls/hr Q6HR JOSELUIS Administration Potassium Chloride 10 meq in 100 mls @ 100 mls/hr 04/09/25 07:45 04/09/25 10:36 Kcl Ivpb IV 04/09/25 11:44 80 mls/hr Q1H JOSELUIS Administration Magnesium Sulfate 4 gm in 50 mls @ 12.5 mls/hr 04/09/25 07:42 04/09/25 08:29 Magnesium Sulfate Ivpb IV 04/09/25 11:41 12.5 mls/hr X1 ONE Administration Sodium Chloride 500 mls @ 20 mls/hr 04/09/25 09:30 04/09/25 09:56 Ns IV 05/09/25 09:29 20 mls/hr .Q24H JOSELUIS Administration Insulin Glargine 5 unit 04/06/25 21:00 04/08/25 21:09 Insulin Glargine (Lantus) 5 Unit/0.05 Ml (Per 5 Units) SC 05/06/25 20:59 5 unit HS JOSELUIS Administration Insulin Human Lispro 0 unit 04/07/25 07:30 04/09/25 07:40 Insulin Lispro (Admelog) 1 Unit/0.01 Ml Unit SC 05/07/25 07:29 1 unit ACHS JOSELUIS Administration Protocol Ipratropium [place] 0.5 mg 04/07/25 07:45 04/09/25 06:58 Ipratropium Rt 0.5 Mg/ 2.5 Ml Nebu INH 05/07/25 07:44 0.5 mg Q8HRRT JOSELUIS Administration Levalbuterol HCl 1.25 mg 04/07/25 07:45 04/09/25 06:58 Levalbuterol Rt 1.25 Mg/0.5 Ml Nebu INH 05/07/25 07:44 1.25 mg Q8HRRT JOSELUIS Administration Losartan Potassium 50 mg 04/08/25 09:00 04/09/25 08:30 Losartan Potassium 25 Mg Tablet PO 05/08/25 08:59 50 mg QDAY JOSELUIS Administration Metoprolol Succinate 100 mg 04/06/25 21:00 04/08/25 21:02 Metoprolol Succinate Xl 25 Mg Tabcr PO 05/06/25 20:59 100 mg HS JOSELUIS Administration Montelukast Sodium 10 mg 04/05/25 09:00 04/06/25 09:26 Montelukast Sodium 10 Mg Tablet PO 05/05/25 08:59 10 mg QDAY JOSELUIS Administration Ondansetron HCl 4 mg 04/04/25 17:32 Ondansetron Inj 2 Mg/Ml Inj 2 Ml IVP 05/04/25 17:31 Q6H PRN NAUSEA OR VOMITING Protocol Pantoprazole Sodium 40 mg 04/05/25 09:00 04/09/25 08:31 Pantoprazole Inj 40 Mg Vial IVP 05/05/25 08:59 40 mg QDAY JOSELUIS Administration Sodium Chloride 3 ml 04/04/25 17:27 Sodium Chloride Rt Zo 0.9% 3 Ml Nebu INH 05/04/25 17:26 PRN PRN SOLN Plan In summary: 74-year-old male with PMHx of A-fib on ELIQUIS, HTN, T2DM, MOUNIKA/OHS, chronic respiratory failure, on home 2-3 L oxygen, presented with shortness of breath. Admitted for volume overload requiring intubation and aggressive diuresis. Subsequently extubated successfully, but has worsening hypercapnic respiratory failure. Appreciate recommendations from cardiology team. Acute metabolic encephalopathy Acute on chronic hypercapnic respiratory failure Contraction alkalosis with appropriate respiratory compensation CHF exacerbation MOUNIKA, OHS Fluid overload status (resolved) Presented with volume overload and SOB, echo showed EF 65% with diastolic dysfunction. He has been on diuresis since. With a total of 9 L fluid removed. Overall oxygen demand improved from baseline, currently on 1 L NC. Continued on BiPAP HS. However this morning she was found acutely mildly encephalopathic, likely hypercapnia. VBG showed contraction alkalosis, compensation respiratory acidosis. Diuresis was held. 500 cc NS was given. Repeat CHEM panel and ABG showed worsening contraction alkalosis and compensated respiratory acidosis. Additional 500 cc NS was given. Pending repeat BMP. Cardiology is considering DIAMOX if CO2 remains elevated. ? Maintain K > 4.0 and Mg > 2.0 ? Continue METOPROLOL succinate 100 mg HS ? Holding diuresis ? Pending repeat BMP ? Will consider DIAMOX if worsening respiratory acidosis ? Pending further recommendations from cardiology ? Continue BiPAP HS and intermittently throughout the day ? Pending trilogy approval ? Pending repeat VBG in a.m. 04/10 Tachycardia A-fib CHADVASC2:6 HASBLED: 3 History of A-fib, admission EKG showed A-fib with HR 88. New onset tachycardia, likely 2/2 beta agonist, or reactive to volume loss. Although high risk for RVR given recurrent tachycardia. Overnight had an episode of HR 123 was resolved after METOPROLOL x 1. ? Continue METOPROLOL as above ? Continue ELIQUIS 5 mg BID ? Maintain K > 4.0 and Mg > 2.0 ? Pending further recommendation from cardiology HTN HLD History of HTN. Normotensive however blood pressure appears to be elevated despite METOPROLOL as above. ? Unable to resume home HCTZ and LOSARTAN 2/2 ? Started AMLODIPINE 5 mg daily ? Continue home ATORVASTATIN Baseline CR 1.1. Has new with CR 1.4 > 1.7, likely 2/2 volume loss 2/2 diuresis. We have repleted with 1 L NS, and withheld diuresis for now. ? Renally dose meds, avoid overdiuresis and NEPHROTOXINS ? Daily CMP Pneumonia, CAP versus aspiration Reactive leukocytosis Suspected bibasilar pneumonia on CXR from 04/04. Suspected aspiration given BiPAP use, although currently denies cough. Afebrile, leukocytosis likely reactive 2/2 STEROIDS. Repeat CXR 04/09 showed no pneumonia. Pancultures have all been negative. AZITHROMYCIN and ZOSYN were discontinued. ? Monitor closely Hepatomegaly Hyperbilirubinemia, direct Broad differential including: Gilbert syndrome, ineffective erythropoiesis, or hemolysis. CT showed hepatomegaly. Liver ultrasound showed borderline thickened gallbladder, again hepatomegaly, fatty infiltrate of the liver, no focal liver lesion. LFTs overall WNL. However, total bilirubin alternating between 1.5 and 4.5, and appears chronic. He denies abdominal pain. Low suspicion for cholangitis. Acute hepatitis panel was negative, although he is not immunized. ? Recommended outpatient GI workup for ? Recommended hepatitis B amputation series Normocytic normochromic anemia Hematuria Likely in setting of asymptomatic UTI. Hgb stable. Although cultures have been negative. ANTIBIOTICS discontinued. ? Recommended repeat UA outpatient T2DM Relatively controlled, A1c 6.9 ? INSULIN sliding scale ? Accu-Cheks Hx of CVA. Per family patient had stroke 3 years ago, no residual deficit, head CT unremarkable. ? Continue ASPIRIN and ATORVASTATIN Electrolyte abnormalities ? Replete as needed Health maintenance Diet: Cardiac GI prophylaxis: PROTONIX DVT prophylaxis: ELIQUIS Antibiotics: None CODE STATUS: Full code Disposition: Treating hypercapnia Case was discussed with attending physician. Vijay Bess DO PGY II This document was transcribed using voice recognition technology. Minor inaccuracies may be present. Attending Provider Attestation/Addendum I have examined the patient, reviewed labs and imaging findings, discussed the case with the resident(s), and reviewed entered orders. I agree with the plan of care as outlined in this note, with these additional summaries/recommendations: Patient seen at bedside. Overnight patient reportedly had difficult wearing BiPAP mask and was not compliant. Today at bedside patient appears encephalopathic most likely secondary to hypercapnia. Patient placed back on BiPAP/CPAP and follow-up repeat ABG. Secondary to MOUNIKA/OHS +/- COPD. . He denies previous history of COPD and reports he has undergone 3 sleep studies. He reports he previously had a machine at home but stopped using as he did not like the mask. Discussed with patient that he needs to be compliant with his mask at home. He will need a repeat sleep study outpatient. Case management working on arranging trilogy machine for patient. Continue breathing treatments as needed and abx for superimposed bacterial pneumonia. Patient's Eliquis adjusted to appropriate dose for atrial fibrillation. Continue rate control with metoprolol. Unfortantley patient has labile pulse and in and out of rapid ventricular response most likely secondary to severe MOUNIKA +/- minimal breathing treatments. Cardiology following, recommendations appreciated. Hold diuresis today for and will give small fluid bolus today. Continue atorvastatin for hyperlipidemia. Continue basal and bolus insulin for diabetes mellitus type 2. Patient and updated on the plan and in agreement. All questions answered to satisfaction. Please see residents note for additional details and management. Dr. Sony MD
[2025-04-09 11:47] LABS: Anion Gap 10 (7-16); BUN/Creatinine Ratio 20 Ratio (12-20); Blood Urea Nitrogen 34 mg/dL (9-23); Calcium 9.5 mg/dL (8.3-10.6); Carbon Dioxide > 40.0 mMol/L (20.0-31.0); Chloride 89 mMol/L (98-107); Creatinine (Component) 1.7 mg/dL (0.6-1.3); Estimated Creatinine Clearance 45.8 mL/min (>60); Glucose 169 mg/dL (74-106); Osmolality,Calculated 289 (275-295); Potassium 3.8 mMol/L (3.4-5.1); Sodium 139 mMol/L (136-145); eGFR 42 See Note
--- NOTE | 2025-04-09 12:21 | PC.SS ---
[employer]ENER informed bedside nurse of request for room air evaluation. Patient will require trilogy upon discharge.
[2025-04-09 13:21] LABS: Base Excess 19 (-3-3); HCO3 46 mEq/L (20-26); Inspired Oxygen, FIO2 80 %; O2 Saturation 97 % (91-98); PCO2 56 mmHg (32.0-48.0); PO2 79 mmHg (83-108); pH, Arterial 7.52 (7.35-7.45)
[2025-04-09 13:23] LABS: Allen Test Performed/OK; Puncture Site Right Radial
--- NOTE | 2025-04-09 14:34 | XR_ITS ---
Examination: AP chest single view TECHNIQUE: AP portable semiupright chest single view Date and time: April 09, 2025 1448 hours Comparison April 06, 2025 INDICATIONS: Clinical diagnosis aspiration pneumonia, shortness of breath this week. FINDINGS: Mild prominence left ventricle Subsegmental atelectasis left base No aspiration pneumonia IMPRESSION: No aspiration pneumonia
[2025-04-09] MEDS: SODIUM CHLORIDE 0.9% 500 ML 500 ML 250 ML IV (15:15)
[2025-04-09] MEDS: POTASSIUM CHL 10 mEq IVPB 10 MEQ/100 ML BAG 100 MEQ IV ×4 (16:16→19:49)
[2025-04-09 18:08] LABS: Anion Gap 13 (7-16); BUN/Creatinine Ratio 16 Ratio (12-20); Blood Urea Nitrogen 35 mg/dL (9-23); Calcium 8.9 mg/dL (8.3-10.6); Carbon Dioxide 38.4 mMol/L (20.0-31.0); Chloride 90 mMol/L (98-107); Creatinine (Component) 2.2 mg/dL (0.6-1.3); Estimated Creatinine Clearance 35.4 mL/min (>60); Glucose 150 mg/dL (74-106); Magnesium 2.9 mg/dL (1.6-2.6); Osmolality,Calculated 292 (275-295); Potassium 4.4 mMol/L (3.4-5.1); Sodium 141 mMol/L (136-145); eGFR 30 See Note
--- NOTE | 2025-04-09 18:08 | PC.NURSE ---
Patients oxygen saturation on room air at rest 84%, place pt on 2liter nasal cannula, oxygen saturation 92%.
[2025-04-09] MEDS: ATORVASTATIN CALCIUM 20 MG TABLET 40 MG PO (20:55)
[2025-04-09] MEDS: INSULIN GLARGINE (Lantus) 5 UNIT/0.05 ML (PER 5 UNITS) SC (20:56)
[2025-04-09] MEDS: METOPROLOL SUCCINATE XL 25 MG TABCR 100 MG PO (20:58)
[2025-04-09 22:17] LABS: B-Type Natriuretic Peptide 120 pg/mL (0-100)
[2025-04-09 23:14] LABS: Base Excess 16 (-3-3); HCO3 44 mEq/L (20-26); Inspired O2, VO2 Liters 2 L/min; O2 Saturation 92 % (91-98); PCO2 61 mmHg (32.0-48.0); PO2 62 mmHg (83-108); pH, Arterial 7.47 (7.35-7.45)
[2025-04-09 23:17] LABS: Allen Test Performed/OK; Puncture Site Right Radial
[2025-04-10] VITALS (14 sets, daily range): BP systolic 94–152; BP diastolic 70–98; PULSE 85–102; RESP 13–26; TEMP 36.1–36.3; O2SAT 92–99; BMI 13.0; BMI 36.7
[2025-04-10 05:42] LABS: Base Excess, Venous 15 (-3-3); O2 Saturation, Venous 98 % (96-97); PCO2, Venous 45 mmHg (36-56); PO2, Venous 76 mmHg (15-58); pH, Venous 7.55 (7.33-7.66)
[2025-04-10 06:32] LABS: Alanine Aminotransferase 13 U/L (10-49); Albumin, Serum 3.6 gm/dL (3.4-4.8); Albumin/Globulin Ratio 1.3 (1.2-2.2); Alkaline Phosphatase 74 U/L (46-116); Anion Gap 12 (7-16); Aspartate Amino Transferase 23 U/L (0-34); BUN/Creatinine Ratio 16 Ratio (12-20); Basophils # (Auto) 0.0 Thou/mm3 (0.0-0.2); Basophils % (Auto) 0 % (0-2.5); Bilirubin,Total 3.2 mg/dL (0.3-1.2); Blood Urea Nitrogen 48 mg/dL (9-23); Calcium 8.7 mg/dL (8.3-10.6); Calcium (Corrected) 9.0 mg/dL (8.5-10.1); Carbon Dioxide 38.9 mMol/L (20.0-31.0); Chloride 90 mMol/L (98-107); Creatinine (Component) 3.0 mg/dL (0.6-1.3); Eosinophils # (Auto) 0.0 Thou/mm3 (0.0-0.5); Eosinophils % (Auto) 0 % (0-10); Estimated Creatinine Clearance 25.9 mL/min (>60); Globulin 2.7 gm/dL (2.3-3.5); Glucose 160 mg/dL (74-106); Hematocrit 52.9 % (41.0-53.0); Hemoglobin 16.9 g/dL (13.5-16.0); Immature Granulocytes Auto 0.06 Thou/mm3 (0.00-0.00); Lymphocytes # (Auto) 0.8 Thou/mm3 (1.0-4.8); Lymphocytes % (Auto) 5 % (10-50); Magnesium 3.1 mg/dL (1.6-2.6); Mean Corpuscular HGB Conc 31.9 g/dl (31.0-37.0); Mean Corpuscular Hemoglobin 27.1 pg (25.0-35.0); Mean Corpuscular Volume 85 fL (80-100); Monocytes # (Auto) 1.2 Thou/mm3 (0.0-0.8); Monocytes % (Auto) 8 % (0-12); Neutrophils # (Auto) 12.5 Thou/mm3 (1.8-7.7); Neutrophils % (Auto) 86 % (37-80); Nucleated Red Blood Cell # 0.00 Thou/mm3 (0.00-0.00); Nucleated Red Blood Cell % 0 /100 WBC (0); Osmolality,Calculated 296 (275-295); Phosphorous 3.2 mg/dL (2.4-5.1); Platelet Count 187 Thou/mm3 (140-440); Potassium 4.8 mMol/L (3.4-5.1); RDW Standard Deviation 49.8 fL (35.1-43.9); Red Blood Count 6.23 Miln/mm3 (4.50-5.90); Sodium 141 mMol/L (136-145); Total Protein 6.3 gm/dL (5.7-8.2); White Blood Count 14.6 Thou/mm3 (3.8-10.6); eGFR 21 See Note
[2025-04-10] MEDS: IPRATROPIUM RT 0.5 MG/ 2.5 ML NEBU INH ×3 (06:37→22:31)
[2025-04-10] MEDS: LEVALBUTEROL RT 1.25 MG/0.5 ML NEBU INH ×3 (06:37→22:31)
[2025-04-10] MEDS: INSULIN LISPRO (AdmeLOG) 1 UNIT/0.01 ML UNIT SC ×2 (07:46→12:12)
[2025-04-10] MEDS: APIXABAN 2.5 MG TABLET 5 MG PO ×2 (08:48→21:03)
[2025-04-10] MEDS: ASPIRIN EC 81 MG TABEC PO (08:49)
[2025-04-10] MEDS: PANTOPRAZOLE 40 MG TABLET PO (08:49)
--- NOTE | 2025-04-10 10:34 | ESPR_ITS ---
Documentation for date of: 04/10/25 Subjective Subjective Interval history: Patient seen and examined at the bedside this morning. He seemed tired and was sleeping this morning. He reported doing well. Confusion has improved. He denied any SOB, chest pain, dizziness, headache, abdominal pain, admitted mild orthopnea but denied PND, or palpitations. Reported drinking, but urine output was only 320cc in last 24 hours suggestive of oligouria in the setting of possible ATN Negative by ~ 9L since admission Hold off on lasix due to concern regarding mild 2/2 possible ATN and contraction alkalosis. Recommend to start physical therapy for the patient and evaluate his oxygen needs if he needs oxygen via nasal cannula. Presently, patient needs 2 to 3 L oxygen via nasal cannula only at night. Recommend to keep saturation between 88 to 92%. Strict ins and outs, 2L fluid restriction Incorporated with diet Keep magnesium and potassium greater than 2 and 4 respectively all the time TTE was significant for diastolic dysfunction, but unable to grade because of atrial fibrillation, LVEF 60 to 65%. Recommended to further evaluate urine protein level, as it was 2+. Recommended IV fluid 1 L and nephro consultation. Aspirin 81 Mg daily, Eliquis 5 Mg twice daily, metoprolol succinate 100 Mg daily and atorvastatin 40 Mg daily at night to maintain LDL level less than 55 in the setting of past medical history of hypertension, diabetes mellitus and stroke. Atorvastatin 20 Mg was switched to 40 Mg daily at night. Metoprolol succinate 100 Mg daily. Exam Vital Signs Temp Pulse Resp BP Pulse Ox O2 Del Method O2 Flow Rate 97.1 F 88 20 94/70 97 BiPAP 2 04/10/25 08:00 04/10/25 08:48 04/10/25 08:00 04/10/25 08:48 04/10/25 08:00 04/10/25 08:00 04/10/25 08:00 FiO2 40 04/10/25 08:00 Narrative Exam General: Obese, cooperative gentleman, no acute distress, A & O x3 HEENT: Moist mucous membranes, oropharynx clear Neck: Supple, No masses, No JVD CVS: Irregularly irregular rate and rhythm, No murmurs, rubs or gallops Lungs: Clear lung sounds, no wheeze or crackles, no rhonchi Abd: Mildly distended/ NT, +BS, unable to appreciate any organomegaly Ext: No peripheral edema, palpable peripheral pulses Skin: Darkening of bilateral lower legs Psych: Appropriate mood and affect Objective Labs 04/10/25 05:22 04/10/25 17:24 Labs: Laboratory Results - last 24 hr 04/09/25 04/09/25 04/09/25 11:10 13:10 17:40 WBC RBC Hgb Hct MCV MCH MCHC RDW Std Deviation Plt Count Neut % (Auto) Lymph % (Auto) [place] % (Auto) Eos % (Auto) Baso % (Auto) Neut # (Auto) Lymph # (Auto) [place] # (Auto) Eos # (Auto) Baso # (Auto) Immature Gran # (Auto) Absolute Nucleated RBC Immature Gran % Nucleated RBC % Puncture Site Right Radial ABG pH 7.52 H ABG pCO2 56 H ABG pO2 79 L D ABG HCO3 46 H ABG O2 Saturation 97 ABG Base Excess 19 H VBG pH VBG pCO2 VBG pO2 VBG O2 Sat (Ravi) VBG Base Excess Oxygen Liter Flow FiO2 80 Sodium 139 141 Potassium 3.8 4.4 D Chloride 89 L 90 L Carbon Dioxide > 40.0 H 38.4 H Anion Gap 10 13 BUN 34 H 35 H Creatinine 1.7 H 2.2 H D Estim Creat Clear Calc 45.8 L 35.4 L eGFR 42 L 30 L BUN/Creatinine Ratio 20 16 Glucose 169 H 150 H Calculated Osmolality 289 292 Calcium 9.5 8.9 Corrected Calcium Phosphorus Magnesium 2.9 H Total Bilirubin AST ALT Alkaline Phosphatase B-Natriuretic Peptide Total Protein Albumin Globulin Albumin/Globulin Ratio 04/09/25 04/09/25 04/10/25 21:35 22:47 05:22 WBC 14.6 H RBC 6.23 H Hgb 16.9 H Hct 52.9 MCV 85 MCH 27.1 MCHC 31.9 RDW Std Deviation 49.8 H Plt Count 187 Neut % (Auto) 86 H Lymph % (Auto) 5 L [place] % (Auto) 8 Eos % (Auto) 0 Baso % (Auto) 0 Neut # (Auto) 12.5 H Lymph # (Auto) 0.8 L [place] # (Auto) 1.2 H Eos # (Auto) 0.0 Baso # (Auto) 0.0 Immature Gran # (Auto) 0.06 H Absolute Nucleated RBC 0.00 Immature Gran % 0 Nucleated RBC % 0 Puncture Site Right Radial ABG pH 7.47 H ABG pCO2 61 H ABG pO2 62 L ABG HCO3 44 H ABG O2 Saturation 92 ABG Base Excess 16 H VBG pH 7.55 VBG pCO2 45 VBG pO2 76 H D VBG O2 Sat (Ravi) 98 H D VBG Base Excess 15 H Oxygen Liter Flow 2 FiO2 Sodium 141 Potassium 4.8 Chloride 90 L Carbon Dioxide 38.9 H Anion Gap 12 BUN 48 H Creatinine 3.0 H D Estim Creat Clear Calc 25.9 L eGFR 21 L BUN/Creatinine Ratio 16 Glucose 160 H Calculated Osmolality 296 H Calcium 8.7 Corrected Calcium 9.0 Phosphorus 3.2 Magnesium 3.1 H Total Bilirubin 3.2 H D AST 23 ALT 13 Alkaline Phosphatase 74 B-Natriuretic Peptide 120 H Total Protein 6.3 Albumin 3.6 Globulin 2.7 Albumin/Globulin Ratio 1.3 ABG Interpretation ABG results: 04/04/25 04/04/25 04/04/25 13:42 17:07 18:33 ABG pH 7.14 L* 7.20 L ABG pCO2 107 H* 111 H* ABG pO2 85 78 L ABG HCO3 36 H 39 H ABG O2 Saturation 94 92 ABG Base Excess 4 H 6 H VBG pH 7.48 VBG pCO2 50 VBG pO2 82 H VBG Base Excess 11 H 04/04/25 04/04/25 04/04/25 19:35 22:40 23:52 ABG pH 7.16 L* 7.59 H D 7.53 H ABG pCO2 113 H* 37 D 45 ABG pO2 53 L* D 194 H D 87 D ABG HCO3 40 H 36 H 37 H ABG O2 Saturation 78 L 101 H 99 H ABG Base Excess 7 H 13 H 13 H VBG pH VBG pCO2 VBG pO2 VBG Base Excess 04/05/25 04/05/25 04/05/25 01:20 04:52 13:02 ABG pH 7.52 H 7.47 H 7.30 L D ABG pCO2 47 50 H 74 H* D ABG pO2 60 L D 60 L 64 L ABG HCO3 38 H 37 H 37 H ABG O2 Saturation 94 93 89 L ABG Base Excess 13 H 11 H 7 H VBG pH VBG pCO2 VBG pO2 VBG Base Excess 04/06/25 04/07/25 04/09/25 03:55 10:54 04:42 ABG pH 7.36 7.50 H ABG pCO2 70 H 63 H ABG pO2 101 D 57 L* ABG HCO3 39 H 49 H ABG O2 Saturation 98 91 ABG Base Excess 10 H 21 H VBG pH 7.40 VBG pCO2 67 H D VBG pO2 76 H VBG Base Excess 13 H 04/09/25 04/09/25 04/09/25 06:25 13:10 22:47 ABG pH 7.52 H 7.47 H ABG pCO2 56 H 61 H ABG pO2 79 L D 62 L ABG HCO3 46 H 44 H ABG O2 Saturation 97 92 ABG Base Excess 19 H 16 H VBG pH 7.56 VBG pCO2 52 D VBG pO2 43 D VBG Base Excess 21 H 04/10/25 05:22 ABG pH ABG pCO2 ABG pO2 ABG HCO3 ABG O2 Saturation ABG Base Excess VBG pH 7.55 VBG pCO2 45 VBG pO2 76 H D VBG Base Excess 15 H Quality Measures Quality Measures VTE prophylaxis Advance care planning discussed with:: patient and sibling Assessment & Plan Assessment Current Active Medications: Generic Name Dose Route Start Last Admin Trade Name Freq PRN Reason Stop Dose Admin Acetaminophen 650 mg 04/04/25 17:27 Acetaminophen 325 Mg Tablet PO 05/04/25 17:26 Q6H PRN Fever >100 or pain 1-3 Apixaban 5 mg 04/07/25 21:00 04/10/25 08:48 Apixaban 2.5 Mg Tablet PO 05/07/25 20:59 5 mg BID JOSELUIS Administration Aspirin 81 mg 04/05/25 09:00 04/10/25 08:49 Aspirin Ec 81 Mg Tabec PO 05/05/25 08:59 81 mg QDAY JOSELUIS Administration Atorvastatin Calcium 40 mg 04/07/25 21:00 04/09/25 20:55 Atorvastatin Calcium 20 Mg Tablet PO 05/07/25 20:59 40 mg HS JOSELUIS Administration Dextrose 25 ml 04/04/25 17:38 Dextrose 50%-Water Inj 50 Ml Syringe IV 05/04/25 17:37 Q15MIN PRN BG 50-70 responsive npo pt Dextrose 50 ml 04/04/25 17:38 Dextrose 50%-Water Inj 50 Ml Syringe IV 05/04/25 17:37 Q15MIN PRN BG <50 OR BG <70 & pt unresponsive Furosemide 40 mg 04/06/25 21:00 04/08/25 21:03 Furosemide Inj 10 Mg/Ml 4ml Vial IVP 05/06/25 20:59 40 mg BID JOSELUIS Administration Glucagon 1 mg 04/04/25 17:38 Glucagon Inj 1 Mg Vial IM Q15MIN PRN BG <70, and no IV access Insulin Glargine 5 unit 04/06/25 21:00 04/09/25 20:56 Insulin Glargine (Lantus) 5 Unit/0.05 Ml (Per 5 Units) SC 05/06/25 20:59 5 unit HS JOSELUIS Administration Insulin Human Lispro 0 unit 04/07/25 07:30 04/10/25 07:46 Insulin Lispro (Admelog) 1 Unit/0.01 Ml Unit SC 05/07/25 07:29 1 unit ACHS JOSELUIS Administration Protocol Ipratropium [place] 0.5 mg 04/07/25 07:45 04/10/25 06:37 Ipratropium Rt 0.5 Mg/ 2.5 Ml Nebu INH 05/07/25 07:44 0.5 mg Q8HRRT JOSELUIS Administration Levalbuterol HCl 1.25 mg 04/07/25 07:45 04/10/25 06:37 Levalbuterol Rt 1.25 Mg/0.5 Ml Nebu INH 05/07/25 07:44 1.25 mg Q8HRRT JOSELUIS Administration Losartan Potassium 50 mg 04/08/25 09:00 04/09/25 08:30 Losartan Potassium 25 Mg Tablet PO 05/08/25 08:59 50 mg QDAY JOSELUIS Administration Metoprolol Succinate 100 mg 04/06/25 21:00 04/09/25 20:58 Metoprolol Succinate Xl 25 Mg Tabcr PO 05/06/25 20:59 100 mg HS JOSELUIS Administration Montelukast Sodium 10 mg 04/05/25 09:00 04/06/25 09:26 Montelukast Sodium 10 Mg Tablet PO 05/05/25 08:59 10 mg QDAY JOSELUIS Administration Ondansetron HCl 4 mg 04/04/25 17:32 Ondansetron Inj 2 Mg/Ml Inj 2 Ml IVP 05/04/25 17:31 Q6H PRN NAUSEA OR VOMITING Protocol Pantoprazole Sodium 40 mg 04/10/25 09:00 04/10/25 08:49 Pantoprazole 40 Mg Tablet PO 05/10/25 08:59 40 mg QDAY JOSELUIS Administration Protocol Sodium Chloride 3 ml 04/04/25 17:27 Sodium Chloride Rt Zo 0.9% 3 Ml Nebu INH 05/04/25 17:26 PRN PRN SOLN Plan The patient is a 74-year-old male with past medical history significant for hypertension, possible CAD, chronic A-fib, type 2 diabetes mellitus, MOUNIKA and acute CVA in 2018 presented to ED with chief complaint of worsening SOB for the past couple of months is currently being managed for acute on chronic hypoxic respiratory failure. Cardiology consultation was done for further management of possible new onset CHF exacerbation in the setting of longstanding atrial fibrillation. # 2/2 #Possible ATN The patient presented initially with volume overload in the setting of HFpEF exacerbation, and was diuresed about 9 L since admission. On 04/10/2025, the patient's creatinine was 1.4, and repeat creatinine after 1 L of bolus fluid was 1.7, and this morning it was 3.0, and repeat creatinine was 3.6. - Patient started on IV normal saline 80 cc/h - Nephrology consultation done - Avoid nephrotoxic drugs - Renally dose medications - Daily a.m. labs were renal panel #Acute on chronic hypoxic respiratory failure 2/2 S/P extubation #New onset diastolic CHF exacerbation, in the setting of #Chronic atrial fibrillation #Aspiration pneumonia, resolved #MOUNIKA Patient presented with chief complaint of worsening of SOB for past couple of months, visited PCP for 2 times, was given some medications that did not help at all. The patient has history of longstanding atrial fibrillation diagnosed about 5 years ago, but patient is unaware of the situation. Physical exam is significant for generalized anasarca. Liver enzymes WNL, though suspicious for cirrhosis as there is irregular liver counter, but synthetic and detoxification function of liver is intact, suggestive of more likely acute new onset CHF exacerbation. TSH 1.35 [id number] score of 6 - Diuresed well - Hold diuretics - Metoprolol succinate 100 Mg daily at night for rate control - Maintain potassium and magnesium greater than 4 and greater than 2 all the time - Strict ins and out, fluid restriction of 2000 cc daily - Low-sodium diet - Patient education regarding CHF and atrial fibrillation - CPAP/BiPAP at night, as needed at daytime - Telemetry monitoring - Eliquis 5 Mg twice daily - Recommend to keep saturation between 88 to 92%. Recommend to start physical therapy for the patient and evaluate his oxygen needs if he needs oxygen via nasal cannula. However, overnight patient was unable to tolerate BiPAP, and BiPAP was discontinued for couple hours, and he was found to be confused, and was placed again on BiPAP. Currently, back to baseline. Net Negative by ~ 9L since admission Hold off on lasix due to concern regarding mild and contraction alkalosis. Pt was given 1L of total IV fluids. Continue on BiPAP. Recommend to start physical therapy for the patient and evaluate his oxygen needs if he needs oxygen via nasal cannula. Presently, patient needs 2 to 3 L oxygen via nasal cannula only at night. #Past medical history of acute CVA in 2019 #Hypertension #Hyperlipidemia #Possible CAD LDL 73 Blood pressure soft at this time -Aspirin 81 Mg daily -Lipitor 40 Mg daily at night, to maintain LDL level less than 55 in the setting of hypertension, diabetes mellitus type 2 and past medical history of CVA -Antihypertensive will be adjusted given the patient's heart rate and blood pressure, currently started on metoprolol succinate 100 Mg daily at night #DM type II, A1c 6.9 #Rule out cirrhosis #Proteinuria, to be further evaluated Rest of the management deferred to primary hospitalist team. Thank you for consulting cardiology team. We appreciate the opportunity to participate in this patient's care. Cardiology team will continue to follow-up on this patient care. The patient's management plan was discussed with my attending physician MD Escobar Torres MD, PGY3 Attending Provider Attestation/Addendum I have personally seen and examined the patient separately on the above date of service and discussed the plan of care with the resident. I reviewed the resident Dr. Escobar Francis consultation progress note and agree with the resident findings and plan in the note above and have also edited the documentation to reflect my findings and plan. Luis Toney M.D. Interventional Cardiology
--- NOTE | 2025-04-10 10:39 | PC.SS ---
oxygen Pt is discharged in a chronic stable state and has been treated optimally and has other respiratory needs. Oxygen has been ordered due to hypoxic respiratory failure.
[2025-04-10 12:18] LABS: Allen Test Not Performed; Base Excess 15 (-3-3); HCO3 43 mEq/L (20-26); Inspired Oxygen, FIO2 3 %; O2 Saturation 92 % (91-98); PCO2 64 mmHg (32.0-48.0); PO2 64 mmHg (83-108); Puncture Site Left Radial; pH, Arterial 7.43 (7.35-7.45)
--- NOTE | 2025-04-10 13:41 | ESPR_ITS ---
Documentation for date of: 04/10/25 Subjective Subjective Interval history: No acute overnight events. Mentation is waxing and waning, but ANO x 3. CO2 improved with BiPAP, however BUN elevated, likely uremic. Denies fever, chills, headaches, chest pain, sob, cough, GI or urinary symptoms. Exam Vital Signs Temp Pulse Resp BP Pulse Ox O2 Del Method O2 Flow Rate 97.1 F 88 20 94/70 97 BiPAP 2 04/10/25 08:00 04/10/25 08:48 04/10/25 08:00 04/10/25 08:48 04/10/25 08:00 04/10/25 08:00 04/10/25 08:00 FiO2 40 04/10/25 08:00 Narrative Exam GENERAL * Normal appearing adult male, NAD HEENT * NCAT.?[place]. Oral mucosa is moist. Patent Nares NECK * Supple, nontender, no JVD. CHEST * RRR, no m/g/r * CTAB, mild wheezing throughout, no rales or rhonchi. ABDOMEN * Soft, flat, nontender. No guarding/rebound tenderness/masses. * Bowel sounds presents EXTREMITIES * No edema/cyanosis.? * Chronic venous stasis dermatitis of bilateral lower extremity. SKIN * Warm and dry, no jaundice/rashes. NEUROMUSCULAR * No lumbar or midline, no CVA, no paraspinal muscle spasm or tenderness. * Moves all 4 extremities well, with full ROM and good CSM. * [place] x4, CN II-XII grossly intact. * No focal neurologic deficits. PSYCHIATRY * Normal mood and affect, cooperative, no SI or HI or hallucinations. Objective Labs 04/10/25 05:22 04/10/25 05:22 Labs: Laboratory Results - last 24 hr 04/09/25 04/09/25 04/09/25 17:40 21:35 22:47 WBC RBC Hgb Hct MCV MCH MCHC RDW Std Deviation Plt Count Neut % (Auto) Lymph % (Auto) Fisher % (Auto) Eos % (Auto) Baso % (Auto) Neut # (Auto) Lymph # (Auto) Fisher # (Auto) Eos # (Auto) Baso # (Auto) Immature Gran # (Auto) Absolute Nucleated RBC Immature Gran % Nucleated RBC % Puncture Site Right Radial ABG pH 7.47 H ABG pCO2 61 H ABG pO2 62 L ABG HCO3 44 H ABG O2 Saturation 92 ABG Base Excess 16 H VBG pH VBG pCO2 VBG pO2 VBG O2 Sat (Ravi) VBG Base Excess Oxygen Liter Flow 2 FiO2 Sodium 141 Potassium 4.4 D Chloride 90 L Carbon Dioxide 38.4 H Anion Gap 13 BUN 35 H Creatinine 2.2 H D Estim Creat Clear Calc 35.4 L eGFR 30 L BUN/Creatinine Ratio 16 Glucose 150 H Calculated Osmolality 292 Calcium 8.9 Corrected Calcium Phosphorus Magnesium 2.9 H Total Bilirubin AST ALT Alkaline Phosphatase B-Natriuretic Peptide 120 H Total Protein Albumin Globulin Albumin/Globulin Ratio 04/10/25 04/10/25 05:22 12:07 WBC 14.6 H RBC 6.23 H Hgb 16.9 H Hct 52.9 MCV 85 MCH 27.1 MCHC 31.9 RDW Std Deviation 49.8 H Plt Count 187 Neut % (Auto) 86 H Lymph % (Auto) 5 L Fisher % (Auto) 8 Eos % (Auto) 0 Baso % (Auto) 0 Neut # (Auto) 12.5 H Lymph # (Auto) 0.8 L Fisher # (Auto) 1.2 H Eos # (Auto) 0.0 Baso # (Auto) 0.0 Immature Gran # (Auto) 0.06 H Absolute Nucleated RBC 0.00 Immature Gran % 0 Nucleated RBC % 0 Puncture Site Left Radial ABG pH 7.43 ABG pCO2 64 H ABG pO2 64 L ABG HCO3 43 H ABG O2 Saturation 92 ABG Base Excess 15 H VBG pH 7.55 VBG pCO2 45 VBG pO2 76 H D VBG O2 Sat (Ravi) 98 H D VBG Base Excess 15 H Oxygen Liter Flow FiO2 3 Sodium 141 Potassium 4.8 Chloride 90 L Carbon Dioxide 38.9 H Anion Gap 12 BUN 48 H Creatinine 3.0 H D Estim Creat Clear Calc 25.9 L eGFR 21 L BUN/Creatinine Ratio 16 Glucose 160 H Calculated Osmolality 296 H Calcium 8.7 Corrected Calcium 9.0 Phosphorus 3.2 Magnesium 3.1 H Total Bilirubin 3.2 H D AST 23 ALT 13 Alkaline Phosphatase 74 B-Natriuretic Peptide Total Protein 6.3 Albumin 3.6 Globulin 2.7 Albumin/Globulin Ratio 1.3 ABG Interpretation ABG results: 04/04/25 04/04/25 04/04/25 13:42 17:07 18:33 ABG pH 7.14 L* 7.20 L ABG pCO2 107 H* 111 H* ABG pO2 85 78 L ABG HCO3 36 H 39 H ABG O2 Saturation 94 92 ABG Base Excess 4 H 6 H VBG pH 7.48 VBG pCO2 50 VBG pO2 82 H VBG Base Excess 11 H 04/04/25 04/04/25 04/04/25 19:35 22:40 23:52 ABG pH 7.16 L* 7.59 H D 7.53 H ABG pCO2 113 H* 37 D 45 ABG pO2 53 L* D 194 H D 87 D ABG HCO3 40 H 36 H 37 H ABG O2 Saturation 78 L 101 H 99 H ABG Base Excess 7 H 13 H 13 H VBG pH VBG pCO2 VBG pO2 VBG Base Excess 04/05/25 04/05/25 04/05/25 01:20 04:52 13:02 ABG pH 7.52 H 7.47 H 7.30 L D ABG pCO2 47 50 H 74 H* D ABG pO2 60 L D 60 L 64 L ABG HCO3 38 H 37 H 37 H ABG O2 Saturation 94 93 89 L ABG Base Excess 13 H 11 H 7 H VBG pH VBG pCO2 VBG pO2 VBG Base Excess 04/06/25 04/07/25 04/09/25 03:55 10:54 04:42 ABG pH 7.36 7.50 H ABG pCO2 70 H 63 H ABG pO2 101 D 57 L* ABG HCO3 39 H 49 H ABG O2 Saturation 98 91 ABG Base Excess 10 H 21 H VBG pH 7.40 VBG pCO2 67 H D VBG pO2 76 H VBG Base Excess 13 H 04/09/25 04/09/25 04/09/25 06:25 13:10 22:47 ABG pH 7.52 H 7.47 H ABG pCO2 56 H 61 H ABG pO2 79 L D 62 L ABG HCO3 46 H 44 H ABG O2 Saturation 97 92 ABG Base Excess 19 H 16 H VBG pH 7.56 VBG pCO2 52 D VBG pO2 43 D VBG Base Excess 21 H 04/10/25 04/10/25 05:22 12:07 ABG pH 7.43 ABG pCO2 64 H ABG pO2 64 L ABG HCO3 43 H ABG O2 Saturation 92 ABG Base Excess 15 H VBG pH 7.55 VBG pCO2 45 VBG pO2 76 H D VBG Base Excess 15 H Quality Measures Quality Measures VTE prophylaxis Advance care planning discussed with:: patient Assessment & Plan Assessment Current Active Medications: Generic Name Dose Route Start Last Admin Trade Name Frejose j PRN Reason Stop Dose Admin Acetaminophen 650 mg 04/04/25 17:27 Acetaminophen 325 Mg Tablet PO 05/04/25 17:26 Q6H PRN Fever >100 or pain 1-3 Apixaban 5 mg 04/07/25 21:00 04/10/25 08:48 Apixaban 2.5 Mg Tablet PO 05/07/25 20:59 5 mg BID JOSELUIS Administration Aspirin 81 mg 04/05/25 09:00 04/10/25 08:49 Aspirin Ec 81 Mg Tabec PO 05/05/25 08:59 81 mg QDAY JOSELUIS Administration Atorvastatin Calcium 40 mg 04/07/25 21:00 04/09/25 20:55 Atorvastatin Calcium 20 Mg Tablet PO 05/07/25 20:59 40 mg HS JOSELUIS Administration Dextrose 25 ml 04/04/25 17:38 Dextrose 50%-Water Inj 50 Ml Syringe IV 05/04/25 17:37 Q15MIN PRN BG 50-70 responsive npo pt Dextrose 50 ml 04/04/25 17:38 Dextrose 50%-Water Inj 50 Ml Syringe IV 05/04/25 17:37 Q15MIN PRN BG <50 OR BG <70 & pt unresponsive Furosemide 40 mg 04/06/25 21:00 04/08/25 21:03 Furosemide Inj 10 Mg/Ml 4ml Vial IVP 05/06/25 20:59 40 mg BID JOSELUIS Administration Glucagon 1 mg 04/04/25 17:38 Glucagon Inj 1 Mg Vial IM Q15MIN PRN BG <70, and no IV access Insulin Glargine 5 unit 04/06/25 21:00 04/09/25 20:56 Insulin Glargine (Lantus) 5 Unit/0.05 Ml (Per 5 Units) SC 05/06/25 20:59 5 unit HS JOSELUIS Administration Insulin Human Lispro 0 unit 04/07/25 07:30 04/10/25 12:12 Insulin Lispro (Admelog) 1 Unit/0.01 Ml Unit SC 05/07/25 07:29 1 unit ACHS JOSELUIS Administration Protocol Ipratropium [place] 0.5 mg 04/07/25 07:45 04/10/25 06:37 Ipratropium Rt 0.5 Mg/ 2.5 Ml Nebu INH 05/07/25 07:44 0.5 mg Q8HRRT JOSELUIS Administration Levalbuterol HCl 1.25 mg 04/07/25 07:45 04/10/25 06:37 Levalbuterol Rt 1.25 Mg/0.5 Ml Nebu INH 05/07/25 07:44 1.25 mg Q8HRRT JOSELUIS Administration Losartan Potassium 50 mg 04/08/25 09:00 04/09/25 08:30 Losartan Potassium 25 Mg Tablet PO 05/08/25 08:59 50 mg QDAY JOSELUIS Administration Metoprolol Succinate 100 mg 04/06/25 21:00 04/09/25 20:58 Metoprolol Succinate Xl 25 Mg Tabcr PO 05/06/25 20:59 100 mg HS JOSELUIS Administration Montelukast Sodium 10 mg 04/05/25 09:00 04/06/25 09:26 Montelukast Sodium 10 Mg Tablet PO 05/05/25 08:59 10 mg QDAY JOSELUIS Administration Ondansetron HCl 4 mg 04/04/25 17:32 Ondansetron Inj 2 Mg/Ml Inj 2 Ml IVP 05/04/25 17:31 Q6H PRN NAUSEA OR VOMITING Protocol Pantoprazole Sodium 40 mg 04/10/25 09:00 04/10/25 08:49 Pantoprazole 40 Mg Tablet PO 05/10/25 08:59 40 mg QDAY JOSELUIS Administration Protocol Sodium Chloride 3 ml 04/04/25 17:27 Sodium Chloride Rt Zo 0.9% 3 Ml Nebu INH 05/04/25 17:26 PRN PRN SOLN Plan In summary: 74-year-old male with PMHx of A-fib on ELIQUIS, HTN, T2DM, MOUNIKA/OHS, chronic respiratory failure, on home 2-3 L oxygen, presented with shortness of breath. Admitted for volume overload requiring intubation and aggressive diuresis. Subsequently extubated successfully, but has worsening hypercapnic respiratory failure. Appreciate recommendations from cardiology and nephrology teams. Acute metabolic encephalopathy Acute on chronic hypercapnic respiratory failure Contraction alkalosis with appropriate respiratory compensation CHF exacerbation MOUNIKA, OHS Fluid overload status (resolved) Presented with volume overload and SOB, echo showed EF 65% with diastolic dysfunction. He has been on diuresis since. With a total of 9 L fluid removed. Overall oxygen demand improved from baseline, currently on 1 L NC. Continued on BiPAP HS. However this morning she was found acutely mildly encephalopathic, likely hypercapnia. VBG showed contraction alkalosis, compensation respiratory acidosis. Diuresis was held. 500 cc NS was given. Repeat CHEM panel and ABG showed worsening contraction alkalosis and compensated respiratory acidosis. Additional 500 cc NS was given. Pending repeat BMP. Cardiology is considering DIAMOX if CO2 remains elevated. 04/10/2025 EGD today again demonstrated alkalosis, however CO2 slightly improved at 38 today. We did a repeat ABG which showed improvement in alkalosis. Continued on BiPAP. ? Maintain K > 4.0 and Mg > 2.0 ? Continue METOPROLOL succinate 100 mg HS ? Holding diuresis ? Pending repeat BMP ? Will consider DIAMOX if worsening respiratory acidosis ? Pending further recommendations from cardiology ? Continue BiPAP HS and intermittently throughout the day ? Pending trilogy approval Tachycardia A-fib CHADVASC2:6 HASBLED: 3 History of A-fib, admission EKG showed A-fib with HR 88. New onset tachycardia, likely 2/2 beta agonist, or reactive to volume loss. Although high risk for RVR given recurrent tachycardia. Overnight had an episode of HR 123 was resolved after METOPROLOL x 1. ? Continue METOPROLOL as above ? Continue ELIQUIS 5 mg BID ? Maintain K > 4.0 and Mg > 2.0 ? Pending further recommendation from cardiology HTN HLD BP has been elevated in the past few days, and started AMLODIPINE 5 mg daily. However today BP on the softer side. AMLODIPINE was withheld. ? Unable to resume home HCTZ and LOSARTAN 2/2 ? Continue home ATORVASTATIN Baseline CR 1.1. Has new with CR 1.4 > 1.7, likely 2/2 volume loss 2/2 diuresis. We have repleted with 1 L NS, and withheld diuresis for now. Worsening renal function, creatinine 3.0 and BUN 48 despite 1 L fluids given yesterday. Urine output 320. Likely ATN ? Renally dose meds, avoid overdiuresis and NEPHROTOXINS ? Daily CMP ? Pending nephrology recommendations Pneumonia, CAP versus aspiration Reactive leukocytosis Suspected bibasilar pneumonia on CXR from 04/04. Suspected aspiration given BiPAP use, although currently denies cough. Afebrile, leukocytosis likely reactive 2/2 STEROIDS. Repeat CXR 04/09 showed no pneumonia. Pancultures have all been negative. AZITHROMYCIN and ZOSYN were discontinued. ? Monitor closely Hepatomegaly Hyperbilirubinemia, direct Broad differential including: Gilbert syndrome, ineffective erythropoiesis, or hemolysis. CT showed hepatomegaly. Liver ultrasound showed borderline thickened gallbladder, again hepatomegaly, fatty infiltrate of the liver, no focal liver lesion. LFTs overall WNL. However, total bilirubin alternating between 1.5 and 4.5, and appears chronic. He denies abdominal pain. Low suspicion for cholangitis. Acute hepatitis panel was negative, although he is not immunized. ? Recommended outpatient GI workup for ? Recommended hepatitis B amputation series Normocytic normochromic anemia Hematuria Likely in setting of asymptomatic UTI. Hgb stable. Although cultures have been negative. ANTIBIOTICS discontinued. ? Recommended repeat UA outpatient T2DM Relatively controlled, A1c 6.9 ? INSULIN sliding scale ? Accu-Cheks Hx of CVA Per family patient had stroke 3 years ago, no residual deficit, head CT unremarkable. ? Continue ASPIRIN and ATORVASTATIN Electrolyte abnormalities ? Replete as needed Health maintenance Diet: Cardiac GI prophylaxis: PROTONIX DVT prophylaxis: ELIQUIS Antibiotics: None CODE STATUS: Full code Disposition: Treating hypercapnia and Case was discussed with attending physician. Vijay Bess DO PGY II This document was transcribed using voice recognition technology. Minor inaccuracies may be present. Attending Provider Attestation/Addendum Mayela, Keyonna Langston DO, attest that I was physically present for the cano portions of the service and evaluated the patient with the resident and I reviewed and discussed the case with the resident and agree with the resident's findings and plans of care as documented above Patient seen and evaluated this AM. Patient was very somnolent this AM, but oriented and answering questions appropriately. Sisters were at bedside and stated that the patient was the opposite yesterday, very agitated and confused. Patient stated he had no complaints and did not wish for anything to be discussed in the room with his sisters. He quickly fell asleep following his statement, but easily arousable to tactile and verbal stimuli.
--- NOTE | 2025-04-10 13:42 | PC.SS ---
Patient needs a trilogy -non invasive vent device for home The patient needs a mechanical ventilator due to chronic respiratory failure due to severe COPD. The patient needs to keep tidal volume and prevent CO2 retention. Ventilator is required to improve pulmonary status. Without this respiratory support, in home could lead to serious harm or . BiPAP therapy failed.
--- NOTE | 2025-04-10 13:50 | PC.SS ---
SS spoke to patient's sister, lilly, who states patient had the trilogy machine at one time but the company ended up taking it away since patient was not using it. It has been 2 years since he has used the trilogy machine. Patient already has 02 at home through [employer]. SS will contact [employer] to verify if they can order a trilogy machine for patient. All documentation will be submitted to [employer]
--- NOTE | 2025-04-10 13:57 | ESCONSULT_ITS ---
HPI Data of Consult Consult date: 04/10/25 Requesting Physician: Adonis Carodza MD Admitting Provider: Adonis Cardoza MD Attending Provider: Adonis Cardoza MD Primary Care Provider: Bert Echeverria MD Consult Narrative Reason for consult: History of present illness: Kade Dalal is a 74-year-old male with PMHx of A-fib on ELIQUIS, HTN, T2DM, MOUNIKA/OHS, chronic respiratory failure, on home 2-3 L oxygen, admitted for volume overload requiring intubation and aggressive diuresis and SOB. Echo showed EF 65% with diastolic dysfunction. He has been on diuresis since. With a total of 9 L fluid removed. Overall oxygen demand improved from baseline, currently on 1 L NC. Continued on BiPAP HS. Patient received 500 cc NS x2 after worsening contraction alkalosis was shown on chem panel and vbg/abg. Cardiology is considering DIAMOX if CO2 remains elevated. Today Patient was seen and examined. No acute events overnight. Patient is resting in bed and does not have any complaints or concerns. Patient states that he has been using the bipap machine at night even though at home he has not been taking it as much. Patient endorses making urine yesterday, but not any today, and passing stool. Patient denies having history of being unable to make urine in the past. Patient denies fatigue, dizziness, weakness, chest pain, shortness of breath, abdominal pain, dysuria. Nephrology is consulted in for likely due to prerenal azotemia secondary to over-diuresis. cc:: cc: Adonis Cardoza MD Past Medical History Past Medical History CARDIAC: Positive Atrial Fibrillation and Hypertension ENDOCRINE: Positive Diabetes Mellitus Type 2 Social History SMOKING STATUS: Never smoker SUBSTANCE USE: does not use ALCOHOL: Never Exam Vital Signs Temp Pulse Resp BP Pulse Ox O2 Del Method O2 Flow Rate 97.1 F 88 20 94/70 97 BiPAP 2 04/10/25 08:00 04/10/25 08:48 04/10/25 08:00 04/10/25 08:48 04/10/25 08:00 04/10/25 08:00 04/10/25 08:00 FiO2 40 04/10/25 08:00 Narrative Exam Gen: alert and oriented x3, NAD, vitals reviewed Head/Neck: NCAT, no gross LAD ENT: EOMI grossly, anicteric sclerae, mmm Resp: Lungs CTAB, normal respiratory effort, symmetric chest rise CV: irregular rhythm, regular rate; extremities well perfused GI: distended; no tenderness, normal bowel sounds present Ext: no clubbing, cyanosis. 1+ LE edema Skin: chronic venous stasis, no new rash or lesions on visual exam Neuro/MSK: moves all extremities Psych: normal mood; appropriate affect Results Labs 04/10/25 05:22 04/10/25 17:24 Labs: Short CBC 04/10/25 Range/Units 05:22 WBC 14.6 H (3.8-10.6) Thou/mm3 Hgb 16.9 H (13.5-16.0) g/dL Hct 52.9 (41.0-53.0) % Plt Count 187 (140-440) Thou/mm3 BMP 04/09/25 04/10/25 17:40 05:22 Sodium 141 141 Potassium 4.4 D 4.8 Chloride 90 L 90 L Carbon Dioxide 38.4 H 38.9 H BUN 35 H 48 H Creatinine 2.2 H D 3.0 H D Glucose 150 H 160 H Calcium 8.9 8.7 Liver Function 04/10/25 Range/Units 05:22 Total Bilirubin 3.2 H D (0.3-1.2) mg/dL AST 23 (0-34) U/L ALT 13 (10-49) U/L Alkaline Phosphatase 74 (46-116) U/L Albumin 3.6 (3.4-4.8) gm/dL ABG Interpretation ABG results: 04/04/25 04/04/25 04/04/25 13:42 17:07 18:33 ABG pH 7.14 L* 7.20 L ABG pCO2 107 H* 111 H* ABG pO2 85 78 L ABG HCO3 36 H 39 H ABG O2 Saturation 94 92 ABG Base Excess 4 H 6 H VBG pH 7.48 VBG pCO2 50 VBG pO2 82 H VBG Base Excess 11 H 04/04/25 04/04/25 04/04/25 19:35 22:40 23:52 ABG pH 7.16 L* 7.59 H D 7.53 H ABG pCO2 113 H* 37 D 45 ABG pO2 53 L* D 194 H D 87 D ABG HCO3 40 H 36 H 37 H ABG O2 Saturation 78 L 101 H 99 H ABG Base Excess 7 H 13 H 13 H VBG pH VBG pCO2 VBG pO2 VBG Base Excess 04/05/25 04/05/25 04/05/25 01:20 04:52 13:02 ABG pH 7.52 H 7.47 H 7.30 L D ABG pCO2 47 50 H 74 H* D ABG pO2 60 L D 60 L 64 L ABG HCO3 38 H 37 H 37 H ABG O2 Saturation 94 93 89 L ABG Base Excess 13 H 11 H 7 H VBG pH VBG pCO2 VBG pO2 VBG Base Excess 04/06/25 04/07/25 04/09/25 03:55 10:54 04:42 ABG pH 7.36 7.50 H ABG pCO2 70 H 63 H ABG pO2 101 D 57 L* ABG HCO3 39 H 49 H ABG O2 Saturation 98 91 ABG Base Excess 10 H 21 H VBG pH 7.40 VBG pCO2 67 H D VBG pO2 76 H VBG Base Excess 13 H 04/09/25 04/09/25 04/09/25 06:25 13:10 22:47 ABG pH 7.52 H 7.47 H ABG pCO2 56 H 61 H ABG pO2 79 L D 62 L ABG HCO3 46 H 44 H ABG O2 Saturation 97 92 ABG Base Excess 19 H 16 H VBG pH 7.56 VBG pCO2 52 D VBG pO2 43 D VBG Base Excess 21 H 04/10/25 04/10/25 05:22 12:07 ABG pH 7.43 ABG pCO2 64 H ABG pO2 64 L ABG HCO3 43 H ABG O2 Saturation 92 ABG Base Excess 15 H VBG pH 7.55 VBG pCO2 45 VBG pO2 76 H D VBG Base Excess 15 H Quality Measures Quality Measures VTE prophylaxis Advance care planning discussed with:: patient Medications Home Medications and Allergies Home Medications ?Medication ?Instructions ?Recorded ?Confirmed ?Type apixaban 2.5 mg tablet (Eliquis) 2.5 mg PO DAILY 03/0904/05/25 History losartan 50 mg-hydrochlorothiazide 1 tab PO DAILY 02/2504/05/25 History 12.5 mg tablet metformin 500 mg tablet 500 mg PO DAILY 03/09/2307/21 History metoprolol tartrate 100 mg tablet 200 mg PO BID 04/05/25 History aspirin 81 mg tablet,delayed 81 mg PO QDAY 08/17/23 History release potassium chloride 8 mEq 8 meq PO QDAY 08/17/2304/05 History capsule,extended release albuterol sulfate 90 mcg/actuation 1 inh inhalation [place] N PRN shortness 04/05/25 04/05/25 History aerosol inhaler of breath or wheezing atorvastatin 20 mg tablet 20 mg PO DAILY 04/05/2503/27 History montelukast 10 mg tablet 10 mg PO DAILY 04/05/2503/27 History alfuzosin 10 mg tablet,extended 10 mg PO QDAY 04/10/25 04/10/25 History release 24 hr Allergies Allergy/AdvReac Type Severity Reaction Status Date / Time No Known Allergies Allergy Verified 04/04/25 12:58 Visit Medications Acetaminophen (Acetaminophen 325 Mg Tablet) 650 mg PO Q6H PRN PRN Reason: Fever >100 or pain 1-3 Stop: 05/04/25 17:26 Apixaban (Apixaban 2.5 Mg Tablet) 5 mg PO BID PENDING SALE TO [facility] Stop: 05/07/25 20:59 Last Admin: 04/10/25 08:48 Dose: 5 mg Aspirin (Aspirin Ec 81 Mg Tabec) 81 mg PO QDAY [facility]END[facility] TO [facility] Stop: 05/05/25 08:59 Last Admin: 04/10/25 08:49 Dose: 81 mg Atorvastatin Calcium (Atorvastatin Calcium 20 Mg Tablet) 40 mg PO HS [facility]ENDING S[facility] TO [facility] Stop: 05/07/25 20:59 Last Admin: 04/09/25 20:55 Dose: 40 mg Dextrose (Dextrose 50%-Water Inj 50 Ml Syringe) 25 ml IV Q15MIN PRN PRN Reason: BG 50-70 responsive npo pt Stop: 05/04/25 17:37 Dextrose (Dextrose 50%-Water Inj 50 Ml Syringe) 50 ml IV Q15MIN PRN PRN Reason: BG <50 OR BG <70 & pt unresponsive Stop: 05/04/25 17:37 Furosemide (Furosemide Inj 10 Mg/Ml 4ml Vial) 40 mg IVP BID [facility] Stop: 05/06/25 20:59 Last Admin: 04/08/25 21:03 Dose: 40 mg Glucagon (Glucagon Inj 1 Mg Vial) 1 mg IM Q15MIN PRN PRN Reason: BG <70, and no IV access Insulin Glargine (Insulin Glargine (Lantus) 5 Unit/0.05 Ml (Per 5 Units)) 5 unit SC [facility] Stop: 05/06/25 20:59 Last Admin: 04/09/25 20:56 Dose: 5 unit Insulin Human Lispro (Insulin Lispro (Admelog) 1 Unit/0.01 Ml Unit) 0 unit SC [facility]; Protocol Stop: 05/07/25 07:29 Last Admin: 04/10/25 12:12 Dose: 1 unit Ipratropium [place] (Ipratropium Rt 0.5 Mg/ 2.5 Ml Nebu) 0.5 mg INH Q8HRRT PENDING SALE TO [facility] Stop: 05/07/25 07:44 Last Admin: 04/10/25 06:37 Dose: 0.5 mg Levalbuterol HCl (Levalbuterol Rt 1.25 Mg/0.5 Ml Nebu) 1.25 mg INH Q8HRRT PENDING SALE TO [facility] Stop: 05/07/25 07:44 Last Admin: 04/10/25 06:37 Dose: 1.25 mg Losartan Potassium (Losartan Potassium 25 Mg Tablet) 50 mg PO QDAY [facility]ENDING SALE TO [facility] Stop: 05/08/25 08:59 Last Admin: 04/09/25 08:30 Dose: 50 mg Metoprolol Succinate (Metoprolol Succinate Xl 25 Mg Tabcr) 100 mg PO [facility] Stop: 05/06/25 20:59 Last Admin: 04/09/25 20:58 Dose: 100 mg Montelukast Sodium (Montelukast Sodium 10 Mg Tablet) 10 mg PO QDAY [facility] Stop: 05/05/25 08:59 Last Admin: 04/06/25 09:26 Dose: 10 mg Ondansetron HCl (Ondansetron Inj 2 Mg/Ml Inj 2 Ml) 4 mg IVP Q6H PRN; Protocol PRN Reason: NAUSEA OR VOMITING Stop: 05/04/25 17:31 Pantoprazole Sodium (Pantoprazole 40 Mg Tablet) 40 mg PO QDAY [facility]END[facility] TO [facility]; Protocol Stop: 05/10/25 08:59 Last Admin: 04/10/25 08:49 Dose: 40 mg Sodium Chloride (Sodium Chloride Rt Zo 0.9% 3 Ml Nebu) 3 ml INH PRN PRN PRN Reason: SOLN Stop: 05/04/25 17:26 Discontinued Medications Hydrocodone Bitart/Acetaminophen (Hydrocodone/Apap 5/325 Tablet) 1 tab PO Q6HR PRN PRN Reason: PAIN SCALE 4-6 (Moderate Stop: 04/09/25 17:31 Amlodipine Besylate (Amlodipine Besylate 5 Mg Tablet) 5 mg PO X1 ONE Stop: 04/05/25 00:30 Last Admin: 04/05/25 00:50 Dose: 5 mg Amlodipine Besylate (Amlodipine Besylate 5 Mg Tablet) 5 mg PO QDAY [facility] Stop: 05/09/25 16:14 Last Admin: 04/10/25 08:48 Dose: Not Given Apixaban (Apixaban 2.5 Mg Tablet) 5 mg PO BID [facility] Stop: 05/04/25 20:59 Apixaban (Apixaban 2.5 Mg Tablet) 5 mg PO BID [facility] Stop: 05/05/25 08:59 Apixaban (Apixaban 2.5 Mg Tablet) 2.5 mg PO QDAY [facility] Stop: 05/05/25 08:59 Last Admin: 04/05/25 09:51 Dose: 2.5 mg Apixaban (Apixaban 2.5 Mg Tablet) 2.5 mg PO BID [facility] Stop: 04/07/25 09:37 Last Admin: 04/07/25 08:38 Dose: 2.5 mg Apixaban (Apixaban 2.5 Mg Tablet) 2.5 mg PO X1 ONE Stop: 04/07/25 09:39 Last Admin: 04/07/25 10:12 Dose: 2.5 mg Atorvastatin Calcium (Atorvastatin Calcium 10 Mg Tablet) 20 mg PO HS [facility] Stop: 05/04/25 20:59 Last Admin: 04/06/25 21:17 Dose: 20 mg Atorvastatin Calcium (Atorvastatin Calcium 20 Mg Tablet) 20 mg PO HS [facility] Stop: 05/07/25 20:59 Etomidate (Etomidate Inj 2 Mg/Ml Vial 10 Ml) 20 mg IVP X1 ONE Stop: 04/04/25 19:50 Last Admin: 04/04/25 20:07 Dose: 20 mg Furosemide (Furosemide Inj 10 Mg/Ml Vial 2 Ml) 20 mg IVP BID JOSELUIS Stop: 05/04/25 20:59 Last Admin: 04/04/25 21:51 Dose: Not Given Furosemide (Furosemide Inj 10 Mg/Ml 4ml Vial) 40 mg IVP X1 ONE Stop: 04/04/25 20:43 Last Admin: 04/04/25 20:47 Dose: 40 mg Furosemide (Furosemide Inj 10 Mg/Ml Vial 2 Ml) 40 mg IVP DAILY [facility] Stop: 05/05/25 08:59 Last Admin: 04/05/25 09:55 Dose: Not Given Furosemide (Furosemide Inj 10 Mg/Ml Vial 2 Ml) 20 mg IVP DAILY [facility]END[facility] Stop: 05/06/25 08:59 Hydralazine HCl (Hydralazine Inj 20 Mg/Ml Vial) 10 mg IVP Q4H PRN PRN Reason: SBP >170 Stop: 05/04/25 17:41 Hydralazine HCl (Hydralazine Inj 20 Mg/Ml Vial) 10 mg IVP X1 ONE Stop: 04/04/25 23:34 Last Admin: 04/05/25 00:22 Dose: 10 mg Magnesium Sulfate (Magnesium Sulfate Ivpb) 2 gm in 50 mls @ 25 mls/hr IV X1 ONE Stop: 04/04/25 19:38 Last Infusion: 04/04/25 21:26 Dose: Infused Ceftriaxone Sodium 1 gm/ (Sodium Chloride) 50 mls @ 100 mls/hr IV QDAY [facility]ENDING SALE TO [facility] Stop: 04/11/25 18:57 Last Infusion: 04/04/25 20:00 Dose: Infused Azithromycin 500 mg/ Sodium (Chloride) 250 mls @ 250 mls/hr IV QDAY [facility]END[facility] S[facility] TO [facility] Stop: 04/11/25 18:58 Last Admin: 04/04/25 22:16 Dose: Not Given Azithromycin 500 mg/ Sodium (Chloride) 250 mls @ 250 mls/hr IV X1 ONE Stop: 04/04/25 20:14 Last Admin: 04/04/25 22:16 Dose: Not Given Fentanyl Citrate (Sublimaze Inj 2,500 Mcg/250 Ml Bag) 2,500 mcg in 250 mls @ 2.5 mls/hr IV .Q24H PRN; Protocol PRN Reason: PER PROTOCOL Stop: 04/09/25 19:50 Last Titration: 04/05/25 09:30 Dose: 0 mcg/hr, 0 mls/hr Midazolam HCl (Versed Pf Inj In Ns Premix) 100 mg in 100 mls @ 1 mls/hr IV .Q24H PRN; Protocol PRN Reason: PER PROTOCOL Stop: 04/09/25 19:50 Last Titration: 04/05/25 02:30 Dose: 0 mg/hr, 0 mls/hr Piperacillin/Tazobactam/Dextrose (Zosyn) 3.375 gm in 50 mls @ 100 mls/hr IV X1 ONE Stop: 04/04/25 20:51 Last Infusion: 04/04/25 21:21 Dose: Infused Piperacillin/Tazobactam/Dextrose (Zosyn) 3.375 gm in 50 mls @ 12.5 mls/hr IV Q8HR JO[facility] Stop: 04/12/25 05:59 Vancomycin HCl 2,000 mg/ (Sodium Chloride) 500 mls @ 150 mls/hr IV X1 ONE Stop: 04/05/25 00:19 Last Admin: 04/04/25 22:01 Dose: 150 mls/hr Propofol (Diprivan Ivpb) 1,000 mg in 100 mls @ 3.6 mls/hr IV .Q24H PRN; Protocol PRN Reason: PER PROTOCOL Stop: 05/04/25 20:58 Propofol (Diprivan Ivpb) 1,000 mg in 100 mls @ 3.6 mls/hr IV .Q24H PRN; Protocol PRN Reason: PER PROTOCOL Stop: 05/04/25 21:06 Last Titration: 04/05/25 07:40 Dose: 0 mcg/kg/min, 0 mls/hr Piperacillin Sod/Tazobactam (Sod 4.5 gm/ Sodium Chloride) 100 mls @ 200 mls/hr IV Q6HR JOSEL[facility] Stop: 04/11/25 22:32 Last Admin: 04/05/25 07:59 Dose: Not Given Piperacillin Sod/Tazobactam (Sod 4.5 gm/ Sodium Chloride) 100 mls @ 200 mls/hr IV Q6HR PENDING SALE TO [facility] Stop: 04/12/25 02:59 Last Admin: 04/09/25 11:45 Dose: 200 mls/hr Magnesium Sulfate (Magnesium Sulfate Ivpb) 4 gm in 50 mls @ 12.5 mls/hr IV X1 ONE Stop: 04/05/25 11:42 Last Admin: 04/05/25 09:50 Dose: 12.5 mls/hr Magnesium Sulfate (Magnesium Sulfate Ivpb) 2 gm in 50 mls @ 25 mls/hr IV X1 ONE Stop: 04/05/25 13:44 Last Admin: 04/05/25 11:42 Dose: 25 mls/hr Azithromycin 500 mg/ Sodium (Chloride) 250 mls @ 250 mls/hr IV QDAY [facility] Stop: 04/09/25 08:55 Last Admin: 04/08/25 08:49 Dose: 250 mls/hr Potassium Chloride (Kcl Ivpb) 10 meq in 100 mls @ 100 mls/hr IV Q1H [facility] Stop: 04/09/25 11:44 Last Admin: 04/09/25 14:45 Dose: 80 mls/hr Magnesium Sulfate (Magnesium Sulfate Ivpb) 4 gm in 50 mls @ 12.5 mls/hr IV X1 ONE Stop: 04/09/25 11:41 Last Infusion: 04/09/25 12:29 Dose: Infused Sodium Chloride (Ns) 500 mls @ 20 mls/hr IV .Q24H PENDING SALE TO [facility] Stop: 05/09/25 09:29 Last Admin: 04/09/25 09:56 Dose: 20 mls/hr Magnesium Sulfate (Magnesium Sulfate Ivpb) 4 gm in 50 mls @ 12.5 mls/hr IV X1 ONE Stop: 04/09/25 17:03 Last Admin: 04/09/25 15:06 Dose: 12.5 mls/hr Sodium Chloride (Ns) 500 mls @ 250 mls/hr IV .Q2H ONE Stop: 04/09/25 16:48 Last Admin: 04/09/25 15:15 Dose: 250 mls/hr Potassium Chloride (Kcl Ivpb) 10 meq in 100 mls @ 100 mls/hr IV Q1H [facility] Stop: 04/09/25 18:59 Last Admin: 04/09/25 19:49 Dose: 100 mls/hr Insulin Human Lispro (Insulin Lispro (Admelog) 1 Unit/0.01 Ml Unit) 0 unit SC AC PENDING SALE TO [facility]; Protocol Stop: 05/05/25 07:29 Insulin Human Lispro (Insulin Lispro (Admelog) 1 Unit/0.01 Ml Unit) 0 unit SC Q6HR PEND[facility]ALE TO [facility]; Protocol Stop: 05/05/25 00:44 Last Admin: 04/06/25 17:26 Dose: Not Given Ipratropium [place] (Ipratropium Rt 0.5 Mg/ 2.5 Ml Nebu) 0.5 mg INH Q6HRRT PENDING SALE TO [facility] Stop: 05/04/25 18:59 Last Admin: 04/05/25 06:06 Dose: 0.5 mg Ipratropium [place] (Ipratropium Rt 0.5 Mg/ 2.5 Ml Nebu) 0.5 mg INH Q4HRRT PENDING SALE TO [facility] Stop: 05/05/25 10:59 Last Admin: 04/06/25 10:12 Dose: 0.5 mg Ipratropium [place] (Ipratropium Rt 0.5 Mg/ 2.5 Ml Nebu) 0.5 mg INH Q4HRRT PRN PRN Reason: SOB/Wheezing Stop: 05/05/25 10:59 Levalbuterol HCl (Levalbuterol Rt 1.25 Mg/0.5 Ml Nebu) 1.25 mg INH Q6HRRT PENDING SALE TO [facility] Stop: 05/04/25 18:59 Last Admin: 04/05/25 06:06 Dose: 1.25 mg Levalbuterol HCl (Levalbuterol Rt 1.25 Mg/0.5 Ml Nebu) 1.25 mg INH Q4HRRT PENDING SALE TO [facility] Stop: 05/05/25 10:59 Last Admin: 04/06/25 10:12 Dose: 1.25 mg Levalbuterol HCl (Levalbuterol Rt 1.25 Mg/0.5 Ml Nebu) 1.25 mg INH Q4HRRT PRN PRN Reason: SOB/Wheezing Stop: 05/05/25 10:59 Methylprednisolone Sodium Succinate (Methylprednisolone Sod Succ 62.5 Mg/Ml 2ml Vial) 125 mg IVP X1 ONE Stop: 04/04/25 20:26 Last Admin: 04/04/25 20:52 Dose: 125 mg Methylprednisolone Sodium Succinate (Methylprednisolone Sod Succ 62.5 Mg/Ml 2ml Vial) 60 mg IVP Q6HR PENDING SALE TO [facility] Stop: 04/12/25 02:59 Last Admin: 04/05/25 05:30 Dose: 60 mg Methylprednisolone Sodium Succinate (Methylprednisolone Sod Succ 62.5 Mg/Ml 2ml Vial) 60 mg IVP QDAY PENDING SALE TO [facility] Stop: 04/12/25 08:59 Last Admin: 04/05/25 09:52 Dose: 60 mg Metoprolol Tartrate (Metoprolol Tartrate Inj 1 Mg/Ml Amp 5 Ml) 5 mg IVP X1 ONE Stop: 04/05/25 11:19 Last Admin: 04/05/25 11:36 Dose: Not Given Metoprolol Tartrate (Metoprolol Tartrate 25 Mg Tablet) 100 mg PO BID [facility] Stop: 05/05/25 11:29 Last Admin: 04/05/25 11:37 Dose: Not Given Metoprolol Tartrate (Metoprolol Tartrate 25 Mg Tablet) 50 mg PO X1 ONE Stop: 04/05/25 11:34 Last Admin: 04/05/25 11:42 Dose: 50 mg Metoprolol Tartrate (Metoprolol Tartrate 25 Mg Tablet) 50 mg PO BID [facility] Stop: 05/05/25 20:59 Last Admin: 04/06/25 09:26 Dose: 50 mg Metoprolol Tartrate (Metoprolol Tartrate Inj 1 Mg/Ml Amp 5 Ml) 5 mg IVP X1 ONE Stop: 04/09/25 02:31 Last Admin: 04/09/25 02:42 Dose: 5 mg Pantoprazole Sodium (Pantoprazole Inj 40 Mg Vial) 40 mg IVP QDAY [facility] Stop: 05/05/25 08:59 Last Admin: 04/09/25 08:31 Dose: 40 mg Pharmacy Consult (Vancomycin Pharmacy To Dose 1 Each Each) 1 each IV QDAY [facility] Stop: 05/04/25 20:29 Last Admin: 04/05/25 07:59 Dose: Not Given Potassium Chloride (Potassium Chloride 10% 20 Meq/15 Ml Udc) 40 meq NG X1 ONE Stop: 04/05/25 07:43 Last Admin: 04/05/25 09:51 Dose: 40 meq Potassium Chloride (Potassium Chloride 20 Meq Tabcr) 40 meq PO X1 ONE Stop: 04/09/25 13:06 Last Admin: 04/09/25 15:20 Dose: Not Given Rocuronium [place] (Rocuronium Inj 10 Mg/Ml Vial 10 Ml) 75 mg IV X1 ONE Stop: 04/04/25 19:50 Last Admin: 04/04/25 20:07 Dose: 75 mg Sodium Chloride (Sodium Chloride Rt 10% 15 Ml Nebu) 5 ml INH X1 ONE Stop: 04/04/25 22:20 Last Admin: 04/05/25 00:52 Dose: Not Given Assessment & Plan Plan In summary: 74-year-old male with PMHx of A-fib on ELIQUIS, HTN, T2DM, MOUNIKA/OHS, chronic respiratory failure, on home 2-3 L oxygen, presented with shortness of breath. Admitted for volume overload requiring intubation and aggressive diuresis. Subsequently extubated successfully, but has worsening hypercapnic respiratory failure. Nephrology consulted for management of . # Acute Kidney Injury Patient noted to have with current Cr 3.0 (over baseline ~1.0). Suspect pre- renal due to over-diuresis in context of chf exacerbation. Patient has soft blood pressure. Denies dizziness, weakness. Patient has not been making urine today. - trial fluid challenge with 1 L NS @ 80 ml/hr - if patient does not respond, then will do hemodialysis tomorrow potentially - hold further diuresis - monitor MAP, UOP, e-lytes, creatinine - consider PO midoddrine 10 mg TID - About 7.6L net output for hospital stay - renally dose medications - hold nephrotoxic meds Acute metabolic encephalopathy Acute on chronic hypercapnic respiratory failure Contraction alkalosis with appropriate respiratory compensation CHF exacerbation MOUNIKA, OHS Fluid overload status (resolved) Tachycardia A-fib HTN HLD Pneumonia, CAP versus aspiration Reactive leukocytosis Hepatomegaly Hyperbilirubinemia, direct Normocytic normochromic anemia Hematuria T2DM Hx of CVA. Electrolyte abnormalities Above problems Medically managed through the primary team Thank you for allowing us to take part in the care of Mr. Dalal Plan of care discussed with attending, Dr. Jorgito Srivastava MD PGY-1 Attending Provider Attestation/Addendum Patient seen and examined with resident physician Dr. Srivastava. Note reviewed, agree with findings and recommendations. Clinically patient looks rather dehydrated. Hemoglobin 16.9. Patient seems to be sleepy when I examined him. Could not get much information. Spoke to sister. Hold off on diuretics. Give 1 L IV fluids with close monitoring of urinary output and creatinine. Plan of care discussed with Sister Wendy at bedside. Thank you Dr. Langston for allowing me to participate in the care of Mr. Dalal
--- NOTE | 2025-04-10 14:22 | PC.SS ---
Rounding Note: Blood gas ordered. Patient utilizing BI-PAP.
--- NOTE | 2025-04-10 14:56 | PC.SS ---
DME referral submitted to [facility]. Documents submitted via XM fax to . Documents submitted on [facility]. Orders/supporting documentation submitted in patient's chart.
[2025-04-10 16:23] LABS: Creatinine,Random Urine 41 mg/dL (30-125); Urea Nitrogen, Random Urine 213.0 mg/dL (350.0-1000.0)
[2025-04-10] MEDS: SODIUM CHLORIDE 0.9% 1000 ML 1,000 ML 80 ML IV (16:56)
--- NOTE | 2025-04-10 16:59 | PC.SS ---
ZIGZAGGER received phone call from [facility] RT staffAkiko; requesting opportunity to deliver and set up patient at bedside with [facility]. [facility] staff available to come out morning. ZIGZAGGER notified [facility] staff will update vendor on patient's discharge date. [facility] does not possess weekend staff to schedule set up of equipment.
--- NOTE | 2025-04-10 17:09 | EKG_ITS ---
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
--- NOTE | 2025-04-10 17:24 | PC.SS ---
Rapid response generated on the patient due to unresponsiveness. Patient now verbally responding. Family at bedside.
[2025-04-10 17:25] LABS: Base Excess 14 (-3-3); HCO3 42 mEq/L (20-26); Inspired O2, VO2 Liters 4 L/min; O2 Saturation 95 % (91-98); PCO2 68 mmHg (32.0-48.0); PO2 77 mmHg (83-108); pH, Arterial 7.40 (7.35-7.45)
[2025-04-10 17:26] LABS: Allen Test Performed/OK; Puncture Site Left Radial
[2025-04-10 17:33] LABS: Lactate (Lactic Acid) 1.5 mMol/L (0.4-2.0)
--- NOTE | 2025-04-10 17:40 | PD.RESEVENT ---
Documentation for date of: 04/10/25 Event Note Event Note: Rapid response was initiated this evening for altered mental status noted during rounds. Patient was relieved prior to episode, found difficult to awaken, unresponsive to stimuli including sternal rubs. After several attempts, he was awakened, returned to baseline. Exam showed no focal neurological deficits. He was alert and oriented x 4 but did not recall the episode. ABG was taken showing no changes from this morning, no severe CO2 retention. MRI brain and labs were ordered and we will follow-up. Case was discussed with attending physician. Vijay Bess, PGY II This document was transcribed using voice recognition technology. Minor inaccuracies may be present.
[2025-04-10 17:56] LABS: Ammonia 22 uMol/L (11-32)
[2025-04-10 17:57] LABS: Alanine Aminotransferase 13 U/L (10-49); Albumin, Serum 3.7 gm/dL (3.4-4.8); Albumin/Globulin Ratio 1.7 (1.2-2.2); Alkaline Phosphatase 69 U/L (46-116); Anion Gap 11 (7-16); Aspartate Amino Transferase 27 U/L (0-34); BUN/Creatinine Ratio 17 Ratio (12-20); Bilirubin,Total 2.1 mg/dL (0.3-1.2); Blood Urea Nitrogen 61 mg/dL (9-23); Calcium 8.9 mg/dL (8.3-10.6); Calcium (Corrected) 9.1 mg/dL (8.5-10.1); Carbon Dioxide 38.1 mMol/L (20.0-31.0); Chloride 90 mMol/L (98-107); Creatinine (Component) 3.6 mg/dL (0.6-1.3); Estimated Creatinine Clearance 21.6 mL/min (>60); Globulin 2.2 gm/dL (2.3-3.5); Glucose 153 mg/dL (74-106); Osmolality,Calculated 297 (275-295); Potassium 4.9 mMol/L (3.4-5.1); Sodium 139 mMol/L (136-145); Total Protein 5.9 gm/dL (5.7-8.2); eGFR 17 See Note
--- NOTE | 2025-04-10 20:52 | PC.NURSE ---
DR. CORRIGAN NOTIFIED OF BLOOD SUGAR 128, PT REFUSED FOOD FOR NOW. DR CORRIGAN HELD LANTUS [place] BUT CALLED BACK AND ORDERED TO GIVE LANTUS SCHEDULED.
[2025-04-10] MEDS: INSULIN GLARGINE (Lantus) 5 UNIT/0.05 ML (PER 5 UNITS) SC (21:03)
[2025-04-10] MEDS: METOPROLOL SUCCINATE XL 25 MG TABCR 100 MG PO (21:03)
[2025-04-10] MEDS: ATORVASTATIN CALCIUM 20 MG TABLET 40 MG PO (21:03)
[2025-04-10 22:45] LABS: Sodium,Urine Random 38.5 mMol/L (20.0-110.0)
[2025-04-11] VITALS (12 sets, daily range): BP systolic 95–118; BP diastolic 65–74; PULSE 75–95; RESP 15–26; TEMP 36.1–36.6; O2SAT 92–99; BMI 36.7; BMI 13.0
--- NOTE | 2025-04-11 | XR_ITS ---
Examinations: MRI Brain without intravenous contrast. MRA brain without intravenous contrast. MRA carotids without intravenous contrast 3-D vascular reconstructions Date and time of exam: April 11, 2025 0831 hours Comparison March 15, 2023 Indication: Diagnosis acute encephalopathy, acute hypoxic respiratory failure Technique: Multiple axial and sagittal images of the brain have been obtained MRA brain carotid images without contrast obtained, including 3-D postprocessing, vascular maximum intensity projection images Findings: Sellaturcica is not enlarged. The optic chiasm and infundibular stalk are not remarkable. Prepontine and interpeduncular cisterns are not enlarged. No localized enlargement of the medulla or nilam. Fourth ventricle and cerebellar tonsils normal in position. Subacute hemorrhage is not seen. Fourth ventricle is midline. Mass in the cerebellopontine angle region is not evident. 7th and 8th nerve complexes exhibits symmetry. Globes are symmetrical with no retro-orbital mass. Increased white matter signal moderate Diffusion-weighted images demonstrate no focus of restricted diffusion Mass-effect upon the ventricular system is not identified. MRA carotid images degraded by patient motion. MRA brain images 90% stenosis right posterior cerebral artery junction P1 P2 segments Impression: Negative for acute hemorrhage mass effect or midline shift No acute infarct 90% stenosis posterior right cerebral artery junction P1 P2 segments
[2025-04-11 06:23] LABS: Basophils # (Auto) 0.1 Thou/mm3 (0.0-0.2); Basophils % (Auto) 0 % (0-2.5); Eosinophils # (Auto) 0.3 Thou/mm3 (0.0-0.5); Eosinophils % (Auto) 2 % (0-10); Hematocrit 47.0 % (41.0-53.0); Hemoglobin 14.7 g/dL (13.5-16.0); Immature Granulocytes Auto 0.03 Thou/mm3 (0.00-0.00); Lymphocytes # (Auto) 1.4 Thou/mm3 (1.0-4.8); Lymphocytes % (Auto) 10 % (10-50); Mean Corpuscular HGB Conc 31.3 g/dl (31.0-37.0); Mean Corpuscular Hemoglobin 27.2 pg (25.0-35.0); Mean Corpuscular Volume 87 fL (80-100); Monocytes # (Auto) 1.2 Thou/mm3 (0.0-0.8); Monocytes % (Auto) 9 % (0-12); Neutrophils # (Auto) 10.4 Thou/mm3 (1.8-7.7); Neutrophils % (Auto) 78 % (37-80); Nucleated Red Blood Cell # 0.00 Thou/mm3 (0.00-0.00); Nucleated Red Blood Cell % 0 /100 WBC (0); Platelet Count 185 Thou/mm3 (140-440); RDW Standard Deviation 51.7 fL (35.1-43.9); Red Blood Count 5.40 Miln/mm3 (4.50-5.90); White Blood Count 13.4 Thou/mm3 (3.8-10.6)
[2025-04-11 06:49] LABS: Alanine Aminotransferase 10 U/L (10-49); Albumin, Serum 3.1 gm/dL (3.4-4.8); Albumin/Globulin Ratio 1.2 (1.2-2.2); Alkaline Phosphatase 63 U/L (46-116); Anion Gap 11 (7-16); Aspartate Amino Transferase 17 U/L (0-34); BUN/Creatinine Ratio 16 Ratio (12-20); Bilirubin,Total 1.9 mg/dL (0.3-1.2); Blood Urea Nitrogen 50 mg/dL (9-23); Calcium 8.0 mg/dL (8.3-10.6); Calcium (Corrected) 8.7 mg/dL (8.5-10.1); Carbon Dioxide 37.6 mMol/L (20.0-31.0); Chloride 91 mMol/L (98-107); Creatinine (Component) 3.1 mg/dL (0.6-1.3); Estimated Creatinine Clearance 25.1 mL/min (>60); Globulin 2.5 gm/dL (2.3-3.5); Glucose 118 mg/dL (74-106); Magnesium 2.8 mg/dL (1.6-2.6); Osmolality,Calculated 293 (275-295); Phosphorous 5.5 mg/dL (2.4-5.1); Potassium 4.1 mMol/L (3.4-5.1); Sodium 140 mMol/L (136-145); Total Protein 5.6 gm/dL (5.7-8.2); eGFR 20 See Note
[2025-04-11] MEDS: IPRATROPIUM RT 0.5 MG/ 2.5 ML NEBU INH ×3 (07:10→22:10)
[2025-04-11] MEDS: LEVALBUTEROL RT 1.25 MG/0.5 ML NEBU INH ×3 (07:10→22:10)
--- NOTE | 2025-04-11 09:13 | ESPR_ITS ---
Documentation for date of: 04/11/25 Subjective Subjective Interval history: Kade Dalal is a 74-year-old male with PMHx of A-fib on ELIQUIS, HTN, T2DM, MOUNIKA/OHS, chronic respiratory failure, on home 2-3 L oxygen, admitted for volume overload requiring intubation and aggressive diuresis and SOB. Echo showed EF 65% with diastolic dysfunction. He has been on diuresis since. With a total of 9 L fluid removed. Overall oxygen demand improved from baseline, currently on 1 L NC. Continued on BiPAP HS. Patient received 500 cc NS x2 after worsening contraction alkalosis was shown on chem panel and vbg/abg. Cardiology is considering DIAMOX if CO2 remains elevated. 04/10/2025 Patient was seen and examined. No acute events overnight. Patient is resting in bed and does not have any complaints or concerns. Patient states that he has been using the bipap machine at night even though at home he has not been taking it as much. Patient endorses making urine yesterday, but not any today, and passing stool. Patient denies having history of being unable to make urine in the past. Patient denies fatigue, dizziness, weakness, chest pain, shortness of breath, abdominal pain, dysuria. 04/11/2025 Patient had a rapid called yesterday evening for altered mental status, was found difficult to awaken, eventually became a&o x4 after multiple sternal rubs and returning back to baseline. This morning patient was doing well, vital signs stable, no new concerns/complaints. Patient denies fever, chest pain, shortness of breath. Patient's has been making urine, 1800 ml last 24 hr. Patient's moss bag appeared very dark in color this morning, maybe from traumatic insertion, will continue to monitor; will be given more IV fluids today. Nephrology is consulted in for likely due to prerenal azotemia secondary to over-diuresis. Exam Vital Signs Temp Pulse Resp BP Pulse Ox O2 Del Method O2 Flow Rate 97.6 F 78 17 118/73 96 Nasal Cannula 6 04/11/25 08:00 04/11/25 08:00 04/11/25 08:00 04/11/25 08:00 04/11/25 08:00 04/11/25 08:00 04/11/25 08:00 FiO2 40 04/11/25 02:56 Narrative Exam Gen: alert and oriented x3, NAD, vitals reviewed Head/Neck: NCAT, no gross LAD ENT: EOMI grossly, anicteric sclerae, mmm Resp: Lungs CTAB, normal respiratory effort, symmetric chest rise CV: regular rhythm, regular rate; extremities well perfused GI: distended; no tenderness, normal bowel sounds present Ext: no clubbing, cyanosis. 1+ LE edema Skin: chronic venous stasis, no new rash or lesions on visual exam Neuro/MSK: moves all extremities Psych: normal mood; appropriate affect Objective Labs 04/11/25 04:55 04/11/25 04:55 Labs: Laboratory Results - last 24 hr 04/10/25 04/10/25 04/10/25 12:07 15:15 17:17 WBC RBC Hgb Hct MCV MCH MCHC RDW Std Deviation Plt Count Neut % (Auto) Lymph % (Auto) [place] % (Auto) Eos % (Auto) Baso % (Auto) Neut # (Auto) Lymph # (Auto) [place] # (Auto) Eos # (Auto) Baso # (Auto) Immature Gran # (Auto) Absolute Nucleated RBC Immature Gran % Nucleated RBC % Puncture Site Left Radial Left Radial ABG pH 7.43 7.40 ABG pCO2 64 H 68 H ABG pO2 64 L 77 L ABG HCO3 43 H 42 H ABG O2 Saturation 92 95 ABG Base Excess 15 H 14 H Oxygen Liter Flow 4 FiO2 3 Sodium Potassium Chloride Carbon Dioxide Anion Gap BUN Creatinine Estim Creat Clear Calc eGFR BUN/Creatinine Ratio Glucose Calculated Osmolality Lactic Acid Calcium Corrected Calcium Phosphorus Magnesium Total Bilirubin AST ALT Alkaline Phosphatase Ammonia Total Protein Albumin Globulin Albumin/Globulin Ratio Ur Random Creatinine 41 Ur Random Sodium Ur Random Urea Nitrogn 213.0 L 04/10/25 04/10/25 04/11/25 17:24 22:25 04:55 WBC 13.4 H RBC 5.40 Hgb 14.7 D Hct 47.0 MCV 87 MCH 27.2 MCHC 31.3 RDW Std Deviation 51.7 H Plt Count 185 Neut % (Auto) 78 Lymph % (Auto) 10 [place] % (Auto) 9 Eos % (Auto) 2 Baso % (Auto) 0 Neut # (Auto) 10.4 H Lymph # (Auto) 1.4 [place] # (Auto) 1.2 H Eos # (Auto) 0.3 Baso # (Auto) 0.1 Immature Gran # (Auto) 0.03 H Absolute Nucleated RBC 0.00 Immature Gran % 0 Nucleated RBC % 0 Puncture Site ABG pH ABG pCO2 ABG pO2 ABG HCO3 ABG O2 Saturation ABG Base Excess Oxygen Liter Flow FiO2 Sodium 139 140 Potassium 4.9 4.1 D Chloride 90 L 91 L Carbon Dioxide 38.1 H 37.6 H Anion Gap 11 11 BUN 61 H 50 H Creatinine 3.6 H D 3.1 H D Estim Creat Clear Calc 21.6 L 25.1 L eGFR 17 L 20 L BUN/Creatinine Ratio 17 16 Glucose 153 H 118 H Calculated Osmolality 297 H 293 Lactic Acid 1.5 Calcium 8.9 8.0 L Corrected Calcium 9.1 8.7 Phosphorus 5.5 H Magnesium 2.8 H Total Bilirubin 2.1 H D 1.9 H AST 27 17 ALT 13 10 Alkaline Phosphatase 69 63 Ammonia 22 Total Protein 5.9 5.6 L Albumin 3.7 3.1 L D Globulin 2.2 L 2.5 Albumin/Globulin Ratio 1.7 1.2 Ur Random Creatinine Ur Random Sodium 38.5 Ur Random Urea Nitrogn ABG Interpretation ABG results: 04/04/25 04/04/25 04/04/25 13:42 17:07 18:33 ABG pH 7.14 L* 7.20 L ABG pCO2 107 H* 111 H* ABG pO2 85 78 L ABG HCO3 36 H 39 H ABG O2 Saturation 94 92 ABG Base Excess 4 H 6 H VBG pH 7.48 VBG pCO2 50 VBG pO2 82 H VBG Base Excess 11 H 04/04/25 04/04/25 04/04/25 19:35 22:40 23:52 ABG pH 7.16 L* 7.59 H D 7.53 H ABG pCO2 113 H* 37 D 45 ABG pO2 53 L* D 194 H D 87 D ABG HCO3 40 H 36 H 37 H ABG O2 Saturation 78 L 101 H 99 H ABG Base Excess 7 H 13 H 13 H VBG pH VBG pCO2 VBG pO2 VBG Base Excess 04/05/25 04/05/25 04/05/25 01:20 04:52 13:02 ABG pH 7.52 H 7.47 H 7.30 L D ABG pCO2 47 50 H 74 H* D ABG pO2 60 L D 60 L 64 L ABG HCO3 38 H 37 H 37 H ABG O2 Saturation 94 93 89 L ABG Base Excess 13 H 11 H 7 H VBG pH VBG pCO2 VBG pO2 VBG Base Excess 04/06/25 04/07/25 04/09/25 03:55 10:54 04:42 ABG pH 7.36 7.50 H ABG pCO2 70 H 63 H ABG pO2 101 D 57 L* ABG HCO3 39 H 49 H ABG O2 Saturation 98 91 ABG Base Excess 10 H 21 H VBG pH 7.40 VBG pCO2 67 H D VBG pO2 76 H VBG Base Excess 13 H 04/09/25 04/09/25 04/09/25 06:25 13:10 22:47 ABG pH 7.52 H 7.47 H ABG pCO2 56 H 61 H ABG pO2 79 L D 62 L ABG HCO3 46 H 44 H ABG O2 Saturation 97 92 ABG Base Excess 19 H 16 H VBG pH 7.56 VBG pCO2 52 D VBG pO2 43 D VBG Base Excess 21 H 04/10/25 04/10/25 04/10/25 05:22 12:07 17:17 ABG pH 7.43 7.40 ABG pCO2 64 H 68 H ABG pO2 64 L 77 L ABG HCO3 43 H 42 H ABG O2 Saturation 92 95 ABG Base Excess 15 H 14 H VBG pH 7.55 VBG pCO2 45 VBG pO2 76 H D VBG Base Excess 15 H Quality Measures Quality Measures VTE prophylaxis Advance care planning discussed with:: patient Assessment & Plan Assessment Current Active Medications: Generic Name Dose Route Start Last Admin Trade Name Vamsi PRN Reason Stop Dose Admin Acetaminophen 650 mg 04/04/25 17:27 Acetaminophen 325 Mg Tablet PO 05/04/25 17:26 Q6H PRN Fever >100 or pain 1-3 Apixaban 5 mg 04/07/25 21:00 04/10/25 21:03 Apixaban 2.5 Mg Tablet PO 05/07/25 20:59 5 mg BID JOSELUIS Administration Aspirin 81 mg 04/05/25 09:00 04/10/25 08:49 Aspirin Ec 81 Mg Tabec PO 05/05/25 08:59 81 mg QDAY JOSELUIS Administration Atorvastatin Calcium 40 mg 04/07/25 21:00 04/10/25 21:03 Atorvastatin Calcium 20 Mg Tablet PO 05/07/25 20:59 40 mg HS JOSELUIS Administration Dextrose 25 ml 04/04/25 17:38 Dextrose 50%-Water Inj 50 Ml Syringe IV 05/04/25 17:37 Q15MIN PRN BG 50-70 responsive npo pt Dextrose 50 ml 04/04/25 17:38 Dextrose 50%-Water Inj 50 Ml Syringe IV 05/04/25 17:37 Q15MIN PRN BG <50 OR BG <70 & pt unresponsive Glucagon 1 mg 04/04/25 17:38 Glucagon Inj 1 Mg Vial IM Q15MIN PRN BG <70, and no IV access Sodium Chloride 1,000 mls @ 80 mls/hr 04/11/25 09:15 Ns IV 05/11/25 09:14 .[id number] JOSELUIS Insulin Glargine 5 unit 04/06/25 21:00 04/10/25 21:03 Insulin Glargine (Lantus) 5 Unit/0.05 Ml (Per 5 Units) SC 05/06/25 20:59 5 unit HS JOSELUIS Administration Insulin Human Lispro 0 unit 04/07/25 07:30 04/11/25 08:03 Insulin Lispro (Admelog) 1 Unit/0.01 Ml Unit SC 05/07/25 07:29 Not Given ACHS JOSELUIS Protocol Ipratropium [place] 0.5 mg 04/07/25 07:45 04/11/25 07:10 Ipratropium Rt 0.5 Mg/ 2.5 Ml Nebu INH 05/07/25 07:44 0.5 mg Q8HRRT JOSELUIS Administration Levalbuterol HCl 1.25 mg 04/07/25 07:45 04/11/25 07:10 Levalbuterol Rt 1.25 Mg/0.5 Ml Nebu INH 05/07/25 07:44 1.25 mg Q8HRRT JOSELUSI Administration Metoprolol Succinate 100 mg 04/06/25 21:00 04/10/25 21:03 Metoprolol Succinate Xl 25 Mg Tabcr PO 05/06/25 20:59 100 mg HS JOSELUIS Administration Ondansetron HCl 4 mg 04/04/25 17:32 Ondansetron Inj 2 Mg/Ml Inj 2 Ml IVP 05/04/25 17:31 Q6H PRN NAUSEA OR VOMITING Protocol Pantoprazole Sodium 40 mg 04/10/25 09:00 04/10/25 08:49 Pantoprazole 40 Mg Tablet PO 05/10/25 08:59 40 mg QDAY JOSELUIS Administration Protocol Sodium Chloride 3 ml 04/04/25 17:27 Sodium Chloride Rt Zo 0.9% 3 Ml Nebu INH 05/04/25 17:26 PRN PRN SOLN Plan In summary: 74-year-old male with PMHx of A-fib on ELIQUIS, HTN, T2DM, MOUNIKA/OHS, chronic respiratory failure, on home 2-3 L oxygen, presented with shortness of breath. Admitted for volume overload requiring intubation and aggressive diuresis. Subsequently extubated successfully, but has worsening hypercapnic respiratory failure. Nephrology consulted for management of . # Acute Kidney Injury Likely ATN with Cr staying elevated (at 3.1 currently) despite giving fluids. Suspect pre-renal due to over-diuresis in context of chf exacerbation. Holding fluids due to patient's volume status appearing full. Patient noted to have with current Cr 3.0 (over baseline ~1.0). Denies dizziness, weakness. Patient UOP 1800 last 24 hrs. Today urine in moss looked dark colored. - hold fluids - hold further diuresis - monitor MAP, UOP, e-lytes, creatinine - consider PO midoddrine 10 mg TID - About 8.5 L net output for hospital stay - renally dose medications - hold nephrotoxic meds Acute metabolic encephalopathy Acute on chronic hypercapnic respiratory failure Contraction alkalosis with appropriate respiratory compensation CHF exacerbation MOUNIKA, OHS Fluid overload status (resolved) Tachycardia A-fib HTN HLD Pneumonia, CAP versus aspiration Reactive leukocytosis Hepatomegaly Hyperbilirubinemia, direct Normocytic normochromic anemia Hematuria T2DM Hx of CVA. Electrolyte abnormalities Above problems Medically managed through the primary team Thank you for allowing us to take part in the care of Mr. Dalal Plan of care discussed with attending, Dr. Jorgito Srivastava MD PGY-1 Attending Provider Attestation/Addendum Patient seen and examined with resident physician Dr. Srivastava. Note reviewed, agree with findings and recommendations. Clinically patient looks rather dehydrated. Hemoglobin 16.9. Patient seems to be sleepy when I examined him. Could not get much information. Spoke to sister. Hold off on diuretics. Give 1 L IV fluids with close monitoring of urinary output and creatinine. Plan of care discussed with Sister Wendy at bedside. 04/11/2025 patient currently seen in telemetry. Clinically looks rather euvolemic. Discontinued IV fluids. Urine still showed cloudy creatinine 3.1 improved from 3.6. Noted hematuria. Will monitor closely. Plan of care discussed with the sister at bedside
--- NOTE | 2025-04-11 09:14 | PC.SS ---
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 Fax number provided: [phone]. Once prescription obtained attending will need to sign form and social media coordinator to fax form to . systems requirements planner updated.
[2025-04-11] MEDS: APIXABAN 2.5 MG TABLET 5 MG PO ×2 (09:42→21:03)
[2025-04-11] MEDS: SODIUM CHLORIDE 0.9% 1000 ML 1,000 ML 80 ML IV (09:43)
[2025-04-11] MEDS: PANTOPRAZOLE 40 MG TABLET PO (09:43)
[2025-04-11] MEDS: ASPIRIN EC 81 MG TABEC PO (09:43)
--- NOTE | 2025-04-11 11:06 | ESCONSULT_ITS ---
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 Admitted for acuet on chronic hypoxic hypercarbic respiratory failure, respiratory acidosis with inadequate renal compensation, c/f new onset CHF, acute encephalopathy, bilateral bibasilar pneumonia. ED Course: Afebrile, blood pressure of 130/76, respiratory 22, heart rate of 75, saturating 63%. Sodium of 147, potassium 4.6, bicarb 37, BUN 29 and Cr 1, blood glucose of 151, VBG pH show 7.48, BUG545, PO282, T. bili 2.2, AST 19 ALT 8, lipase 36, BNP 477 and troponin negative x 1. Medicine was consulted for further workup and admission. ABG was ordered due to concern for worsening narcosis and pCO2 was 107, pH was 7.14. EKG showed Afib, rate 70~, QTc 423. Patient was then placed on BiPAP. Hospital course: 04/04: Encephalopathic most likely 2/2 hypercarbia, hypoxia. ABG showed hypercapnia, placed on BiPAP, started on ceftriaxone 1g IV daily, Azithromycin 500 mg IV, DuoNebs, Lasix for b/l LE swelling, continued home Eliquis, atorvastatin 20, ASA 81. Intubated 2/2 worsening hypercarbia, transferred to ICU, given Solu-Medrol 125 mg x 1 then 60 mg q6h. Started Zosyn and vancomycin IV 04/05: D/C steroids, continued on Azitrhomycin and Zosyn, wean sedation, Eliquis 2.5 twice daily for DVT prophylaxis and A-fib. 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 Extubated 04/06: EKG showed rate controlled A-fib, irregular rhythm low QRS voltage in extremity leads. Liver ultrasound negative for cholelithiasis. [id number] score of 6, Eliquis 5 Mg twice daily, Metoprolol XL 100 mg daily 04/07: Resolved acute encephalopathy 04/08: Shortness of breath improving, currently on 3 L NC which is baseline for him. Retaining CO2 despite BiPAP 04/09: Overnight, he had tachycardia 123 which improved to mid 90s after metoprolol x1. Labile pulses in and out of RVR, BP also elevated 155/91. Slightly encephalopathic on exam, AO x 3, but pointing to invisible objects around the room. Has worsening , hypercarbic (CO2 > 40). Blood gas showing contraction alkalosis, with compensatory respiratory acidosis. 1 L NS was given. 04/10: Mentation is waxing and waning, but ANO x 3. CO2 improved with BiPAP, however BUN elevated, likely uremic. Rapid response for altered mental status, found difficult to awaken, unresponsive to stimuli including sternal rubs. After several attempts, he was awakened, returned to baseline. Exam showed no focal neurological deficits. He was alert and oriented x 4 but did not recall the episode. ABG was taken showing no changes from this morning, no severe CO2 retention. Patient examined at bedside. Patient denies headache, acute vision changes, paresthesias, weakness, shortness of breath, nausea, vomiting, abdominal pain. He does not have any concerns at this time. cc:: cc: Adonis Cardoza MD Review of Systems Review of Systems Narrative Review of Systems: 14 point ROS negative other than HPI Exam Vital Signs Temp Pulse Resp BP Pulse Ox O2 Del Method O2 Flow Rate 97.6 F 78 17 118/73 96 Nasal Cannula 6 04/11/25 08:00 04/11/25 08:00 04/11/25 08:00 04/11/25 08:00 04/11/25 08:00 04/11/25 08:00 04/11/25 08:00 FiO2 40 04/11/25 02:56 Narrative Exam General: No acute distress, well nourished Eye: PERRL, EOMI, normal conjunctiva, no scleral icterus HENT: Normocephalic, atraumatic, hearing intact to conversation at normal volume, moist oral mucosa Neck: Supple, non-tender, no JVD, no lymphadenopathy Lungs: Non-labored respirations, symmetric chest rise Heart: Peripheral pulses intact bilaterally Abdomen: Soft, non-tender, non-distended Musculoskeletal: Normal range of motion and strength Skin: Skin is warm, dry, b/l LE venous stasis dermatitis Psychiatric: Cooperative, appropriate mood and affect Neurologic: Mental status: Orientation: Oriented to person, place, time, and situation Communication: Patient is cooperative and can follow simple instructions Language: Speech fluent, normal rate and volume, comprehension intact Cranial nerves: CN II: Visual [place] intact CN III: Pupils equal, round, and reactive to light CN III, IV, : No gaze deviation, no nystagmus Horizontal pursuit: intact Vertical pursuit: intact Ptosis: none CN V: Facial sensation to light touch intact bilaterally at the forehead, cheeks, and jaw line CN VII: Face symmetric, no facial droop appreciated CN VIII: Able to hear and respond to conversation at normal volume, intact to finger rub CN IX, X: Palate elevation symmetric, uvula midline CN XI: Head turn and shoulder shrug strong, symmetric bilaterally CN XII: Normal tongue protrusion without deviation, no fasciculations Motor: Normal bulk and tone No atrophy No abnormal movements or fasciculations Muscle strength: Shoulder abduction: R 5/5 L 5/5 Elbow flexion: R 5/5 L 5/5 Elbow extension: R 5/5 L 5/5 Hip flexion: R 5/5 L 5/5 Hip extension: R 5/5 L 5/5 Knee flexion: R 5/5 L 5/5 Knee extension: R 5/5 L 5/5 Sensory: RUE: Light touch intact LUE: Light touch intact RLE: Light touch intact LLE: Light touch intact Reflexes: Biceps (C5-6): R 2+ L 2+ Brachioradialis (C5-6): R 2+ L 2+ Triceps (C7-8): R 2+ L 2+ Patellae (L3-4): R 2+ L 2+ Achilles (S1-2):R 2+ L 2+ Cerebellum: RUE: No dysmetria (finger to nose) LUE: No dysmetria (finger to nose) Results Labs 04/11/25 04:55 04/11/25 04:55 Labs: Short CBC 04/11/25 Range/Units 04:55 WBC 13.4 H (3.8-10.6) Thou/mm3 Hgb 14.7 D (13.5-16.0) g/dL Hct 47.0 (41.0-53.0) % Plt Count 185 (140-440) Thou/mm3 BMP 04/10/25 04/11/25 17:24 04:55 Sodium 139 140 Potassium 4.9 4.1 D Chloride 90 L 91 L Carbon Dioxide 38.1 H 37.6 H BUN 61 H 50 H Creatinine 3.6 H D 3.1 H D Glucose 153 H 118 H Calcium 8.9 8.0 L Liver Function 04/10/25 04/11/25 Range/Units 17:24 04:55 Total Bilirubin 2.1 H D 1.9 H (0.3-1.2) mg/dL AST 27 17 (0-34) U/L ALT 13 10 (10-49) U/L Alkaline Phosphatase 69 63 (46-116) U/L Albumin 3.7 3.1 L D (3.4-4.8) gm/dL ABG Interpretation ABG results: 04/04/25 04/04/25 04/04/25 13:42 17:07 18:33 ABG pH 7.14 L* 7.20 L ABG pCO2 107 H* 111 H* ABG pO2 85 78 L ABG HCO3 36 H 39 H ABG O2 Saturation 94 92 ABG Base Excess 4 H 6 H VBG pH 7.48 VBG pCO2 50 VBG pO2 82 H VBG Base Excess 11 H 04/04/25 04/04/25 04/04/25 19:35 22:40 23:52 ABG pH 7.16 L* 7.59 H D 7.53 H ABG pCO2 113 H* 37 D 45 ABG pO2 53 L* D 194 H D 87 D ABG HCO3 40 H 36 H 37 H ABG O2 Saturation 78 L 101 H 99 H ABG Base Excess 7 H 13 H 13 H VBG pH VBG pCO2 VBG pO2 VBG Base Excess 04/05/25 04/05/25 04/05/25 01:20 04:52 13:02 ABG pH 7.52 H 7.47 H 7.30 L D ABG pCO2 47 50 H 74 H* D ABG pO2 60 L D 60 L 64 L ABG HCO3 38 H 37 H 37 H ABG O2 Saturation 94 93 89 L ABG Base Excess 13 H 11 H 7 H VBG pH VBG pCO2 VBG pO2 VBG Base Excess 04/06/25 04/07/25 04/09/25 03:55 10:54 04:42 ABG pH 7.36 7.50 H ABG pCO2 70 H 63 H ABG pO2 101 D 57 L* ABG HCO3 39 H 49 H ABG O2 Saturation 98 91 ABG Base Excess 10 H 21 H VBG pH 7.40 VBG pCO2 67 H D VBG pO2 76 H VBG Base Excess 13 H 04/09/25 04/09/25 04/09/25 06:25 13:10 22:47 ABG pH 7.52 H 7.47 H ABG pCO2 56 H 61 H ABG pO2 79 L D 62 L ABG HCO3 46 H 44 H ABG O2 Saturation 97 92 ABG Base Excess 19 H 16 H VBG pH 7.56 VBG pCO2 52 D VBG pO2 43 D VBG Base Excess 21 H 04/10/25 04/10/25 04/10/25 05:22 12:07 17:17 ABG pH 7.43 7.40 ABG pCO2 64 H 68 H ABG pO2 64 L 77 L ABG HCO3 43 H 42 H ABG O2 Saturation 92 95 ABG Base Excess 15 H 14 H VBG pH 7.55 VBG pCO2 45 VBG pO2 76 H D VBG Base Excess 15 H Quality Measures Quality Measures VTE prophylaxis Advance care planning discussed with:: patient Medications Home Medications and Allergies Home Medications ?Medication ?Instructions ?Recorded ?Confirmed ?Type apixaban 2.5 mg tablet (Eliquis) 2.5 mg PO DAILY 03/0904/05/25 History losartan 50 mg-hydrochlorothiazide 1 tab PO DAILY 02/2504/05/25 History 12.5 mg tablet metformin 500 mg tablet 500 mg PO DAILY 03/09/2307/21 History metoprolol tartrate 100 mg tablet 200 mg PO BID 04/05/25 History aspirin 81 mg tablet,delayed 81 mg PO QDAY 08/17/23 History release potassium chloride 8 mEq 8 meq PO QDAY 08/17/2304/05 History capsule,extended release albuterol sulfate 90 mcg/actuation 1 inh inhalation GA N PRN shortness 04/05/25 04/05/25 History aerosol inhaler of breath or wheezing atorvastatin 20 mg tablet 20 mg PO DAILY 04/05/2503/27 History montelukast 10 mg tablet 10 mg PO DAILY 04/05/2503/27 History alfuzosin 10 mg tablet,extended 10 mg PO QDAY 04/10/25 04/10/25 History release 24 hr Allergies Allergy/AdvReac Type Severity Reaction Status Date / Time No Known Allergies Allergy Verified 04/04/25 12:58 Visit Medications Acetaminophen (Acetaminophen 325 Mg Tablet) 650 mg PO Q6H PRN PRN Reason: Fever >100 or pain 1-3 Stop: 05/04/25 17:26 Apixaban (Apixaban 2.5 Mg Tablet) 5 mg PO BID [facility] Stop: 05/07/25 20:59 Last Admin: 04/11/25 09:42 Dose: 5 mg Aspirin (Aspirin Ec 81 Mg Tabec) 81 mg PO QDAY [facility] Stop: 05/05/25 08:59 Last Admin: 04/11/25 09:43 Dose: 81 mg Atorvastatin Calcium (Atorvastatin Calcium 20 Mg Tablet) 40 mg PO [facility] Stop: 05/07/25 20:59 Last Admin: 04/10/25 21:03 Dose: 40 mg Dextrose (Dextrose 50%-Water Inj 50 Ml Syringe) 25 ml IV Q15MIN PRN PRN Reason: BG 50-70 responsive npo pt Stop: 05/04/25 17:37 Dextrose (Dextrose 50%-Water Inj 50 Ml Syringe) 50 ml IV Q15MIN PRN PRN Reason: BG <50 OR BG <70 & pt unresponsive Stop: 05/04/25 17:37 Glucagon (Glucagon Inj 1 Mg Vial) 1 mg IM Q15MIN PRN PRN Reason: BG <70, and no IV access Sodium Chloride (Ns) 1,000 mls @ 80 mls/hr IV .[id number] [facility] Stop: 05/11/25 09:14 Last Admin: 04/11/25 09:43 Dose: 80 mls/hr Insulin Glargine (Insulin Glargine (Lantus) 5 Unit/0.05 Ml (Per 5 Units)) 5 unit SC [facility] Stop: 05/06/25 20:59 Last Admin: 04/10/25 21:03 Dose: 5 unit Insulin Human Lispro (Insulin Lispro (Admelog) 1 Unit/0.01 Ml Unit) 0 unit SC [facility]; Protocol Stop: 05/07/25 07:29 Last Admin: 04/11/25 08:03 Dose: Not Given Ipratropium [place] (Ipratropium Rt 0.5 Mg/ 2.5 Ml Nebu) 0.5 mg INH Q8HRRT [facility] Stop: 05/07/25 07:44 Last Admin: 04/11/25 07:10 Dose: 0.5 mg Levalbuterol HCl (Levalbuterol Rt 1.25 Mg/0.5 Ml Nebu) 1.25 mg INH Q8HRRT [facility] Stop: 05/07/25 07:44 Last Admin: 04/11/25 07:10 Dose: 1.25 mg Metoprolol Succinate (Metoprolol Succinate Xl 25 Mg Tabcr) 100 mg PO HS [facility] Stop: 05/06/25 20:59 Last Admin: 04/10/25 21:03 Dose: 100 mg Ondansetron HCl (Ondansetron Inj 2 Mg/Ml Inj 2 Ml) 4 mg IVP Q6H PRN; Protocol PRN Reason: NAUSEA OR VOMITING Stop: 05/04/25 17:31 Pantoprazole Sodium (Pantoprazole 40 Mg Tablet) 40 mg PO QDAY [facility]; Protocol Stop: 05/10/25 08:59 Last Admin: 04/11/25 09:43 Dose: 40 mg Sodium Chloride (Sodium Chloride Rt Zo 0.9% 3 Ml Nebu) 3 ml INH PRN PRN PRN Reason: SOLN Stop: 05/04/25 17:26 Discontinued Medications Hydrocodone Bitart/Acetaminophen (Hydrocodone/Apap 5/325 Tablet) 1 tab PO Q6HR PRN PRN Reason: PAIN SCALE 4-6 (Moderate Stop: 04/09/25 17:31 Amlodipine Besylate (Amlodipine Besylate 5 Mg Tablet) 5 mg PO X1 ONE Stop: 04/05/25 00:30 Last Admin: 04/05/25 00:50 Dose: 5 mg Amlodipine Besylate (Amlodipine Besylate 5 Mg Tablet) 5 mg PO QDAY [facility] Stop: 05/09/25 16:14 Last Admin: 04/10/25 08:48 Dose: Not Given Apixaban (Apixaban 2.5 Mg Tablet) 5 mg PO BID [facility] Stop: 05/04/25 20:59 Apixaban (Apixaban 2.5 Mg Tablet) 5 mg PO BID [facility] Stop: 05/05/25 08:59 Apixaban (Apixaban 2.5 Mg Tablet) 2.5 mg PO QDAY [facility] Stop: 05/05/25 08:59 Last Admin: 04/05/25 09:51 Dose: 2.5 mg Apixaban (Apixaban 2.5 Mg Tablet) 2.5 mg PO BID [facility] Stop: 04/07/25 09:37 Last Admin: 04/07/25 08:38 Dose: 2.5 mg Apixaban (Apixaban 2.5 Mg Tablet) 2.5 mg PO X1 ONE Stop: 04/07/25 09:39 Last Admin: 04/07/25 10:12 Dose: 2.5 mg Atorvastatin Calcium (Atorvastatin Calcium 10 Mg Tablet) 20 mg PO HS [facility] Stop: 05/04/25 20:59 Last Admin: 04/06/25 21:17 Dose: 20 mg Atorvastatin Calcium (Atorvastatin Calcium 20 Mg Tablet) 20 mg PO HS [facility] Stop: 05/07/25 20:59 Etomidate (Etomidate Inj 2 Mg/Ml Vial 10 Ml) 20 mg IVP X1 ONE Stop: 04/04/25 19:50 Last Admin: 04/04/25 20:07 Dose: 20 mg Furosemide (Furosemide Inj 10 Mg/Ml Vial 2 Ml) 20 mg IVP BID [facility] Stop: 05/04/25 20:59 Last Admin: 04/04/25 21:51 Dose: Not Given Furosemide (Furosemide Inj 10 Mg/Ml 4ml Vial) 40 mg IVP X1 ONE Stop: 04/04/25 20:43 Last Admin: 04/04/25 20:47 Dose: 40 mg Furosemide (Furosemide Inj 10 Mg/Ml Vial 2 Ml) 40 mg IVP DAILY [facility] Stop: 05/05/25 08:59 Last Admin: 04/05/25 09:55 Dose: Not Given Furosemide (Furosemide Inj 10 Mg/Ml Vial 2 Ml) 20 mg IVP DAILY [facility] Stop: 05/06/25 08:59 Furosemide (Furosemide Inj 10 Mg/Ml 4ml Vial) 40 mg IVP BID [facility] Stop: 05/06/25 20:59 Last Admin: 04/08/25 21:03 Dose: 40 mg Hydralazine HCl (Hydralazine Inj 20 Mg/Ml Vial) 10 mg IVP Q4H PRN PRN Reason: SBP >170 Stop: 05/04/25 17:41 Hydralazine HCl (Hydralazine Inj 20 Mg/Ml Vial) 10 mg IVP X1 ONE Stop: 04/04/25 23:34 Last Admin: 04/05/25 00:22 Dose: 10 mg Magnesium Sulfate (Magnesium Sulfate Ivpb) 2 gm in 50 mls @ 25 mls/hr IV X1 ONE Stop: 04/04/25 19:38 Last Infusion: 04/04/25 21:26 Dose: Infused Ceftriaxone Sodium 1 gm/ (Sodium Chloride) 50 mls @ 100 mls/hr IV QDAY [facility] Stop: 04/11/25 18:57 Last Infusion: 04/04/25 20:00 Dose: Infused Azithromycin 500 mg/ Sodium (Chloride) 250 mls @ 250 mls/hr IV QDAY [facility] Stop: 04/11/25 18:58 Last Admin: 04/04/25 22:16 Dose: Not Given Azithromycin 500 mg/ Sodium (Chloride) 250 mls @ 250 mls/hr IV X1 ONE Stop: 04/04/25 20:14 Last Admin: 04/04/25 22:16 Dose: Not Given Fentanyl Citrate (Sublimaze Inj 2,500 Mcg/250 Ml Bag) 2,500 mcg in 250 mls @ 2.5 mls/hr IV .Q24H PRN; Protocol PRN Reason: PER PROTOCOL Stop: 04/09/25 19:50 Last Titration: 04/05/25 09:30 Dose: 0 mcg/hr, 0 mls/hr Midazolam HCl (Versed Pf Inj In Ns Premix) 100 mg in 100 mls @ 1 mls/hr IV .Q24H PRN; Protocol PRN Reason: PER PROTOCOL Stop: 04/09/25 19:50 Last Titration: 04/05/25 02:30 Dose: 0 mg/hr, 0 mls/hr Piperacillin/Tazobactam/Dextrose (Zosyn) 3.375 gm in 50 mls @ 100 mls/hr IV X1 ONE Stop: 04/04/25 20:51 Last Infusion: 04/04/25 21:21 Dose: Infused Piperacillin/Tazobactam/Dextrose (Zosyn) 3.375 gm in 50 mls @ 12.5 mls/hr IV Q8HR [facility] Stop: 04/12/25 05:59 Vancomycin HCl 2,000 mg/ (Sodium Chloride) 500 mls @ 150 mls/hr IV X1 ONE Stop: 04/05/25 00:19 Last Admin: 04/04/25 22:01 Dose: 150 mls/hr Propofol (Diprivan Ivpb) 1,000 mg in 100 mls @ 3.6 mls/hr IV .Q24H PRN; Protocol PRN Reason: PER PROTOCOL Stop: 05/04/25 20:58 Propofol (Diprivan Ivpb) 1,000 mg in 100 mls @ 3.6 mls/hr IV .Q24H PRN; Protocol PRN Reason: PER PROTOCOL Stop: 05/04/25 21:06 Last Titration: 04/05/25 07:40 Dose: 0 mcg/kg/min, 0 mls/hr Piperacillin Sod/Tazobactam (Sod 4.5 gm/ Sodium Chloride) 100 mls @ 200 mls/hr IV Q6HR [facility] Stop: 04/11/25 22:32 Last Admin: 04/05/25 07:59 Dose: Not Given Piperacillin Sod/Tazobactam (Sod 4.5 gm/ Sodium Chloride) 100 mls @ 200 mls/hr IV Q6HR [facility] Stop: 04/12/25 02:59 Last Admin: 04/09/25 11:45 Dose: 200 mls/hr Magnesium Sulfate (Magnesium Sulfate Ivpb) 4 gm in 50 mls @ 12.5 mls/hr IV X1 ONE Stop: 04/05/25 11:42 Last Admin: 04/05/25 09:50 Dose: 12.5 mls/hr Magnesium Sulfate (Magnesium Sulfate Ivpb) 2 gm in 50 mls @ 25 mls/hr IV X1 ONE Stop: 04/05/25 13:44 Last Admin: 04/05/25 11:42 Dose: 25 mls/hr Azithromycin 500 mg/ Sodium (Chloride) 250 mls @ 250 mls/hr IV QDAY [facility] Stop: 04/09/25 08:55 Last Admin: 04/08/25 08:49 Dose: 250 mls/hr Potassium Chloride (Kcl Ivpb) 10 meq in 100 mls @ 100 mls/hr IV Q1H [facility] Stop: 04/09/25 11:44 Last Admin: 04/09/25 14:45 Dose: 80 mls/hr Magnesium Sulfate (Magnesium Sulfate Ivpb) 4 gm in 50 mls @ 12.5 mls/hr IV X1 ONE Stop: 04/09/25 11:41 Last Infusion: 04/09/25 12:29 Dose: Infused Sodium Chloride (Ns) 500 mls @ 20 mls/hr IV .Q24H [facility] Stop: 05/09/25 09:29 Last Admin: 04/09/25 09:56 Dose: 20 mls/hr Magnesium Sulfate (Magnesium Sulfate Ivpb) 4 gm in 50 mls @ 12.5 mls/hr IV X1 ONE Stop: 04/09/25 17:03 Last Admin: 04/09/25 15:06 Dose: 12.5 mls/hr Sodium Chloride (Ns) 500 mls @ 250 mls/hr IV .Q2H ONE Stop: 04/09/25 16:48 Last Admin: 04/09/25 15:15 Dose: 250 mls/hr Potassium Chloride (Kcl Ivpb) 10 meq in 100 mls @ 100 mls/hr IV Q1H [facility] Stop: 04/09/25 18:59 Last Admin: 04/09/25 19:49 Dose: 100 mls/hr Sodium Chloride (Ns) 1,000 mls @ 80 mls/hr IV .[id number] [facility] Stop: 04/11/25 04:38 Last Admin: 04/10/25 16:56 Dose: 80 mls/hr Insulin Human Lispro (Insulin Lispro (Admelog) 1 Unit/0.01 Ml Unit) 0 unit SC AC [facility]; Protocol Stop: 05/05/25 07:29 Insulin Human Lispro (Insulin Lispro (Admelog) 1 Unit/0.01 Ml Unit) 0 unit SC Q6HR [facility]; Protocol Stop: 05/05/25 00:44 Last Admin: 04/06/25 17:26 Dose: Not Given Ipratropium [place] (Ipratropium Rt 0.5 Mg/ 2.5 Ml Nebu) 0.5 mg INH Q6HRRT [facility] Stop: 05/04/25 18:59 Last Admin: 04/05/25 06:06 Dose: 0.5 mg Ipratropium [place] (Ipratropium Rt 0.5 Mg/ 2.5 Ml Nebu) 0.5 mg INH Q4HRRT [facility] Stop: 05/05/25 10:59 Last Admin: 04/06/25 10:12 Dose: 0.5 mg Ipratropium [place] (Ipratropium Rt 0.5 Mg/ 2.5 Ml Nebu) 0.5 mg INH Q4HRRT PRN PRN Reason: SOB/Wheezing Stop: 05/05/25 10:59 Levalbuterol HCl (Levalbuterol Rt 1.25 Mg/0.5 Ml Nebu) 1.25 mg INH Q6HRRT [facility] Stop: 05/04/25 18:59 Last Admin: 04/05/25 06:06 Dose: 1.25 mg Levalbuterol HCl (Levalbuterol Rt 1.25 Mg/0.5 Ml Nebu) 1.25 mg INH Q4HRRT [facility] Stop: 05/05/25 10:59 Last Admin: 04/06/25 10:12 Dose: 1.25 mg Levalbuterol HCl (Levalbuterol Rt 1.25 Mg/0.5 Ml Nebu) 1.25 mg INH Q4HRRT PRN PRN Reason: SOB/Wheezing Stop: 05/05/25 10:59 Losartan Potassium (Losartan Potassium 25 Mg Tablet) 50 mg PO QDAY [facility] Stop: 05/08/25 08:59 Last Admin: 04/09/25 08:30 Dose: 50 mg Methylprednisolone Sodium Succinate (Methylprednisolone Sod Succ 62.5 Mg/Ml 2ml Vial) 125 mg IVP X1 ONE Stop: 04/04/25 20:26 Last Admin: 04/04/25 20:52 Dose: 125 mg Methylprednisolone Sodium Succinate (Methylprednisolone Sod Succ 62.5 Mg/Ml 2ml Vial) 60 mg IVP Q6HR [facility] Stop: 04/12/25 02:59 Last Admin: 04/05/25 05:30 Dose: 60 mg Methylprednisolone Sodium Succinate (Methylprednisolone Sod Succ 62.5 Mg/Ml 2ml Vial) 60 mg IVP QDAY [facility] Stop: 04/12/25 08:59 Last Admin: 04/05/25 09:52 Dose: 60 mg Metoprolol Tartrate (Metoprolol Tartrate Inj 1 Mg/Ml Amp 5 Ml) 5 mg IVP X1 ONE Stop: 04/05/25 11:19 Last Admin: 04/05/25 11:36 Dose: Not Given Metoprolol Tartrate (Metoprolol Tartrate 25 Mg Tablet) 100 mg PO BID [facility] Stop: 05/05/25 11:29 Last Admin: 04/05/25 11:37 Dose: Not Given Metoprolol Tartrate (Metoprolol Tartrate 25 Mg Tablet) 50 mg PO X1 ONE Stop: 04/05/25 11:34 Last Admin: 04/05/25 11:42 Dose: 50 mg Metoprolol Tartrate (Metoprolol Tartrate 25 Mg Tablet) 50 mg PO BID [facility] Stop: 05/05/25 20:59 Last Admin: 04/06/25 09:26 Dose: 50 mg Metoprolol Tartrate (Metoprolol Tartrate Inj 1 Mg/Ml Amp 5 Ml) 5 mg IVP X1 ONE Stop: 04/09/25 02:31 Last Admin: 04/09/25 02:42 Dose: 5 mg Montelukast Sodium (Montelukast Sodium 10 Mg Tablet) 10 mg PO QDAY [facility] Stop: 05/05/25 08:59 Last Admin: 04/06/25 09:26 Dose: 10 mg Pantoprazole Sodium (Pantoprazole Inj 40 Mg Vial) 40 mg IVP QDAY [facility] Stop: 05/05/25 08:59 Last Admin: 04/09/25 08:31 Dose: 40 mg Pharmacy Consult (Vancomycin Pharmacy To Dose 1 Each Each) 1 each IV QDAY [facility] Stop: 05/04/25 20:29 Last Admin: 04/05/25 07:59 Dose: Not Given Potassium Chloride (Potassium Chloride 10% 20 Meq/15 Ml Udc) 40 meq NG X1 ONE Stop: 04/05/25 07:43 Last Admin: 04/05/25 09:51 Dose: 40 meq Potassium Chloride (Potassium Chloride 20 Meq Tabcr) 40 meq PO X1 ONE Stop: 04/09/25 13:06 Last Admin: 04/09/25 15:20 Dose: Not Given Rocuronium [place] (Rocuronium Inj 10 Mg/Ml Vial 10 Ml) 75 mg IV X1 ONE Stop: 04/04/25 19:50 Last Admin: 04/04/25 20:07 Dose: 75 mg Sodium Chloride (Sodium Chloride Rt 10% 15 Ml Nebu) 5 ml INH X1 ONE Stop: 04/04/25 22:20 Last Admin: 04/05/25 00:52 Dose: Not Given Assessment & Plan Plan # Acute encephalopathy, resolved Initial presentation: rapid response for altered mental status, found difficult to awaken, unresponsive to stimuli including sternal rubs. After several attempts, he was awakened, returned to baseline. Exam showed no focal neurological deficits. He was alert and oriented x 4 but did not recall the episode. 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 No acute infarct. 90% stenosis Right [employer] junction P1 P2 segments 03/15/23 MRI/MRA brain w/o : 90% plus stenosis right posterior cerebral artery junction P1 P2 segments, 70% stenosis Left [employer] P1 segment Carotid Doppler: Right internal carotid artery demonstrates 0-10% stenosis. Left internal carotid artery demonstrates 0-10% stenosis. ABCD2 score for TIA: 2 (low risk) Plan: - Continue high-intensity statin (ASCVD 33.5% risk of cardiovascular event in next 10 years) - Continue home ASA 81 mg #Atrial fibrillation Home med: Eliquis 2.5 mg daily Increased dose to Eliquis 5 mg daily [id number]: 6 (stroke risk 9.7% per year in >90,000 patients, 13.6% risk of stroke/TIA/systemic embolism) HAS-BLED: 3 (3.7-5.8% risk of major bleed on anticoagulation) Plan: - Management per primary, cardiology - Eliquis 5 mg daily, Metoprolol XL 100 mg daily # Type 2 Diabetes Mellitus A1C 6.9 Plan: - Management per primary #COPD on 3 L home O2 at night #MOUNIKA/OHS # Acute on chronic hypoxic hypercarbic respiratory failure, resolved # Pneumonia 3L home O2 at night with nasal cannula Cocci negative DDX: CAP vs aspiration PNA Plan: - Management per primary # Hematuria UA 3+ blood, RBC 3954 On ASA, Eliquis Plan: - Management per primary # Baseline Cr 1.1. BUN: 29 Cr: 1.4 BUN/Cr 21 UA: 1+ protein, 3+ blood, RBC 3954, +LE, WBC 426, + yeast DDX: hypovolemia 2/2 diuresis Plan: - Management per primary # New-onset HFpEF TTE: LVEF 65% Plan: - Management per primary # Hepatomegaly # Hyperbilirubinemia, direct and indirect CT showed hepatomegaly. Liver ultrasound showed borderline thickened gallbladder, again hepatomegaly, fatty infiltrate of the liver, no focal liver lesion. LFTs overall WNL Total bili elevated, now downtrending Denies abdominal pain Hep B/C non-reactive Plan: - Management per primary Plan discussed with Dr. Lobo Yost, PGY1 Attending Provider Attestation/Addendum I personally have seen and examined the patient at the bedside and I agreed with the resident's findings, assessment and plan of care. Follow-up with the EEG to evaluate these paroxysmal episodes associated with hypoxia to rule out seizures. reassurance given to the patient regarding the negative MRI brain for acute infarction but MRA showing stenosis in the right [employer]. Continue with aspirin Plavix statin with close monitoring of hematuria and hemoglobin. Consider physical therapy evaluation tomorrow
--- NOTE | 2025-04-11 11:07 | XR_ITS ---
Examination: Carotid arterial duplex scan, ultrasound. Date and time of exam: April 11, 2025 1252 hours INDICATIONS: Diagnosis carotid stenosis, history CVA Technique: Multiple sonographic images have been obtained of the carotid arteries and vertebral arteries, B-mode/grayscale imaging and Doppler spectral analysis and color flow Peak systolic and diastolic velocities have been recorded. Systolic diastolic ratios have been calculated. Findings: Right peak systolic velocities: Distal internal carotid artery peak systolic velocity is 0.7 M/sec Proximal internal carotid artery peak systolic velocity is 0.3 M/sec Carotid bifurcation peak systolic velocity is 0.5 M/sec External carotid artery peak systolic velocity is 0.6 M/sec Vertebral artery flow is antegrade. Left peak systolic velocities: Distal internal carotid artery peak systolic velocity is 0.6 M/sec Proximal internal carotid artery peak systolic velocity is 0.5 M/sec Carotid bifurcation peak systolic velocity is 0.6 M/sec External carotid artery peak systolic velocity is 0.8 M/sec Vertebral artery flow is antegrade Doppler waveform analysis demonstrates no spectral broadening Impression: Right internal carotid artery demonstrates 0-10% stenosis. Left internal carotid artery demonstrates 0-10% stenosis.
[2025-04-11] MEDS: INSULIN LISPRO (AdmeLOG) 1 UNIT/0.01 ML UNIT SC ×2 (11:56→16:57)
[2025-04-11 13:04] LABS: Collection Type, Urine Catheter; Squamous Epithelial Cell,Urine 0 /hpf (0-5)
[2025-04-11 13:23] LABS: Bilirubin,Urine Negative (Negative); Blood,Urine 3+ (Negative); Budding Yeast,Urine Present; Glucose, Urine Negative (Negative); Ketones,Urine Negative (Negative); Leukocyte Esterase,Urine Positive (Negative); Nitrite,Urine Negative (Negative); PH,Urine 5.5 (5.0-7.0); Protein,Urine 1+ (Neg - Trace); RBC,Urine 3954 /hpf (0-3); Specific Gravity,Urine 1.011 (1.001-1.035); Urobilinogen,Urine Negative mg/dL (0.0-1.0); WBC,Urine 426 /hpf (0-5)
[2025-04-11 13:25] LABS: Clarity,Urine Cloudy (Clear/Hazy); Color,Urine Drk-Red (Lt Yel-Yel)
--- NOTE | 2025-04-11 14:45 | PC.SS ---
Addendum entered by Edilia Wolf 04/11/25 16:24: SS received a call from [facility] RT and she states they will be here at bedside tomorrow morning with trilogy machine and prefer family to be present. SS spoke to patient's sister, Blanca. She will be present tommorrow morning for training on the device. Original Note: Follow up note: Additional signed documents/orders faxed to [facility] for review for trilogy device.
--- NOTE | 2025-04-11 15:52 | ESPR_ITS ---
Documentation for date of: 04/11/25 Subjective Subjective Interval history: No acute overnight events. Mentation again waxing waning, difficult to arouse, however alert and oriented x 4. Denies fever, chills, headaches, chest pain, sob, cough, GI or urinary symptoms. Exam Vital Signs Temp Pulse Resp BP Pulse Ox O2 Del Method O2 Flow Rate 97.6 F 79 19 112/67 99 Nasal Cannula 6 04/11/25 12:00 04/11/25 14:47 04/11/25 14:47 04/11/25 12:00 04/11/25 14:47 04/11/25 12:00 04/11/25 12:00 FiO2 40 04/11/25 14:47 Narrative Exam GENERAL * Normal appearing adult male, NAD HEENT * NCAT.?[place]. Oral mucosa is moist. Patent Nares NECK * Supple, nontender, no JVD. CHEST * RRR, no m/g/r * CTAB, mild wheezing throughout, no rales or rhonchi. ABDOMEN * Soft, flat, nontender. No guarding/rebound tenderness/masses. * Bowel sounds presents EXTREMITIES * No edema/cyanosis.? * Chronic venous stasis dermatitis of bilateral lower extremity. SKIN * Warm and dry, no jaundice/rashes. NEUROMUSCULAR * No lumbar or midline, no CVA, no paraspinal muscle spasm or tenderness. * Moves all 4 extremities well, with full ROM and good CSM. * [place] x4, CN II-XII grossly intact. * No focal neurologic deficits. PSYCHIATRY * Normal mood and affect, cooperative, no SI or HI or hallucinations. Objective Labs 04/12/25 04:40 04/12/25 04:40 Labs: Laboratory Results - last 24 hr 04/10/25 04/10/25 04/10/25 15:15 17:17 17:24 WBC RBC Hgb Hct MCV MCH MCHC RDW Std Deviation Plt Count Neut % (Auto) Lymph % (Auto) [place] % (Auto) Eos % (Auto) Baso % (Auto) Neut # (Auto) Lymph # (Auto) [place] # (Auto) Eos # (Auto) Baso # (Auto) Immature Gran # (Auto) Absolute Nucleated RBC Immature Gran % Nucleated RBC % Puncture Site Left Radial ABG pH 7.40 ABG pCO2 68 H ABG pO2 77 L ABG HCO3 42 H ABG O2 Saturation 95 ABG Base Excess 14 H Oxygen Liter Flow 4 Sodium 139 Potassium 4.9 Chloride 90 L Carbon Dioxide 38.1 H Anion Gap 11 BUN 61 H Creatinine 3.6 H D Estim Creat Clear Calc 21.6 L eGFR 17 L BUN/Creatinine Ratio 17 Glucose 153 H Calculated Osmolality 297 H Lactic Acid 1.5 Calcium 8.9 Corrected Calcium 9.1 Phosphorus Magnesium Total Bilirubin 2.1 H D AST 27 ALT 13 Alkaline Phosphatase 69 Ammonia 22 Total Protein 5.9 Albumin 3.7 Globulin 2.2 L Albumin/Globulin Ratio 1.7 Ur Collection Type Urine Color Urine Clarity Urine pH Ur Specific [place] Urine Protein Urine Glucose (UA) Urine Ketones Urine Blood Urine Nitrite Urine Bilirubin Urine Urobilinogen (Auto) Ur Leukocyte Esterase Urine RBC Urine WBC Ur Squamous Epith Cells Urine Bacteria Urine Yeast (Budding) Ur Random Creatinine 41 Ur Random Sodium Ur Random Urea Nitrogn 213.0 L 04/10/25 04/11/25 04/11/25 22:25 04:55 12:40 WBC 13.4 H RBC 5.40 Hgb 14.7 D Hct 47.0 MCV 87 MCH 27.2 MCHC 31.3 RDW Std Deviation 51.7 H Plt Count 185 Neut % (Auto) 78 Lymph % (Auto) 10 [place] % (Auto) 9 Eos % (Auto) 2 Baso % (Auto) 0 Neut # (Auto) 10.4 H Lymph # (Auto) 1.4 [place] # (Auto) 1.2 H Eos # (Auto) 0.3 Baso # (Auto) 0.1 Immature Gran # (Auto) 0.03 H Absolute Nucleated RBC 0.00 Immature Gran % 0 Nucleated RBC % 0 Puncture Site ABG pH ABG pCO2 ABG pO2 ABG HCO3 ABG O2 Saturation ABG Base Excess Oxygen Liter Flow Sodium 140 Potassium 4.1 D Chloride 91 L Carbon Dioxide 37.6 H Anion Gap 11 BUN 50 H Creatinine 3.1 H D Estim Creat Clear Calc 25.1 L eGFR 20 L BUN/Creatinine Ratio 16 Glucose 118 H Calculated Osmolality 293 Lactic Acid Calcium 8.0 L Corrected Calcium 8.7 Phosphorus 5.5 H Magnesium 2.8 H Total Bilirubin 1.9 H AST 17 ALT 10 Alkaline Phosphatase 63 Ammonia Total Protein 5.6 L Albumin 3.1 L D Globulin 2.5 Albumin/Globulin Ratio 1.2 Ur Collection Type Catheter Urine Color Drk-Red A Urine Clarity Cloudy A Urine pH 5.5 Ur Specific [place] 1.011 Urine Protein 1+ A Urine Glucose (UA) Negative Urine Ketones Negative Urine Blood 3+ A Urine Nitrite Negative Urine Bilirubin Negative Urine Urobilinogen (Auto) Negative Ur Leukocyte Esterase Positive Urine RBC 3954 H Urine WBC 426 H Ur Squamous Epith Cells 0 Urine Bacteria None Urine Yeast (Budding) Present A Ur Random Creatinine Ur Random Sodium 38.5 Ur Random Urea Nitrogn ABG Interpretation ABG results: 04/04/25 04/04/25 04/04/25 13:42 17:07 18:33 ABG pH 7.14 L* 7.20 L ABG pCO2 107 H* 111 H* ABG pO2 85 78 L ABG HCO3 36 H 39 H ABG O2 Saturation 94 92 ABG Base Excess 4 H 6 H VBG pH 7.48 VBG pCO2 50 VBG pO2 82 H VBG Base Excess 11 H 04/04/25 04/04/25 04/04/25 19:35 22:40 23:52 ABG pH 7.16 L* 7.59 H D 7.53 H ABG pCO2 113 H* 37 D 45 ABG pO2 53 L* D 194 H D 87 D ABG HCO3 40 H 36 H 37 H ABG O2 Saturation 78 L 101 H 99 H ABG Base Excess 7 H 13 H 13 H VBG pH VBG pCO2 VBG pO2 VBG Base Excess 04/05/25 04/05/25 04/05/25 01:20 04:52 13:02 ABG pH 7.52 H 7.47 H 7.30 L D ABG pCO2 47 50 H 74 H* D ABG pO2 60 L D 60 L 64 L ABG HCO3 38 H 37 H 37 H ABG O2 Saturation 94 93 89 L ABG Base Excess 13 H 11 H 7 H VBG pH VBG pCO2 VBG pO2 VBG Base Excess 04/06/25 04/07/25 04/09/25 03:55 10:54 04:42 ABG pH 7.36 7.50 H ABG pCO2 70 H 63 H ABG pO2 101 D 57 L* ABG HCO3 39 H 49 H ABG O2 Saturation 98 91 ABG Base Excess 10 H 21 H VBG pH 7.40 VBG pCO2 67 H D VBG pO2 76 H VBG Base Excess 13 H 04/09/25 04/09/25 04/09/25 06:25 13:10 22:47 ABG pH 7.52 H 7.47 H ABG pCO2 56 H 61 H ABG pO2 79 L D 62 L ABG HCO3 46 H 44 H ABG O2 Saturation 97 92 ABG Base Excess 19 H 16 H VBG pH 7.56 VBG pCO2 52 D VBG pO2 43 D VBG Base Excess 21 H 04/10/25 04/10/25 04/10/25 05:22 12:07 17:17 ABG pH 7.43 7.40 ABG pCO2 64 H 68 H ABG pO2 64 L 77 L ABG HCO3 43 H 42 H ABG O2 Saturation 92 95 ABG Base Excess 15 H 14 H VBG pH 7.55 VBG pCO2 45 VBG pO2 76 H D VBG Base Excess 15 H Quality Measures Quality Measures VTE prophylaxis Advance care planning discussed with:: patient Assessment & Plan Assessment Current Active Medications: Generic Name Dose Route Start Last Admin Trade Name Freq PRN Reason Stop Dose Admin Acetaminophen 650 mg 04/04/25 17:27 Acetaminophen 325 Mg Tablet PO 05/04/25 17:26 Q6H PRN Fever >100 or pain 1-3 Apixaban 5 mg 04/07/25 21:00 04/11/25 09:42 Apixaban 2.5 Mg Tablet PO 05/07/25 20:59 5 mg BID JOSELUIS Administration Aspirin 81 mg 04/05/25 09:00 04/11/25 09:43 Aspirin Ec 81 Mg Tabec PO 05/05/25 08:59 81 mg QDAY JOSELUIS Administration Atorvastatin Calcium 40 mg 04/07/25 21:00 04/10/25 21:03 Atorvastatin Calcium 20 Mg Tablet PO 05/07/25 20:59 40 mg HS JOSELUIS Administration Alfuzosin Er 10 Mg 0 ea 04/11/25 13:45 Tablet PO 05/11/25 13:44 QDAY JOSELUIS Dextrose 25 ml 04/04/25 17:38 Dextrose 50%-Water Inj 50 Ml Syringe IV 05/04/25 17:37 Q15MIN PRN BG 50-70 responsive npo pt Dextrose 50 ml 04/04/25 17:38 Dextrose 50%-Water Inj 50 Ml Syringe IV 05/04/25 17:37 Q15MIN PRN BG <50 OR BG <70 & pt unresponsive Glucagon 1 mg 04/04/25 17:38 Glucagon Inj 1 Mg Vial IM Q15MIN PRN BG <70, and no IV access Insulin Glargine 5 unit 04/06/25 21:00 04/10/25 21:03 Insulin Glargine (Lantus) 5 Unit/0.05 Ml (Per 5 Units) SC 05/06/25 20:59 5 unit HS JOSELUIS Administration Insulin Human Lispro 0 unit 04/07/25 07:30 04/11/25 11:56 Insulin Lispro (Admelog) 1 Unit/0.01 Ml Unit SC 05/07/25 07:29 2 unit ACHS JOSELUIS Administration Protocol Ipratropium [place] 0.5 mg 04/07/25 07:45 04/11/25 14:47 Ipratropium Rt 0.5 Mg/ 2.5 Ml Nebu INH 05/07/25 07:44 0.5 mg Q8HRRT JOSELUIS Administration Levalbuterol HCl 1.25 mg 04/07/25 07:45 04/11/25 14:47 Levalbuterol Rt 1.25 Mg/0.5 Ml Nebu INH 05/07/25 07:44 1.25 mg Q8HRRT JOSELUIS Administration Metoprolol Succinate 100 mg 04/06/25 21:00 04/10/25 21:03 Metoprolol Succinate Xl 25 Mg Tabcr PO 05/06/25 20:59 100 mg HS JOSELUIS Administration Ondansetron HCl 4 mg 04/04/25 17:32 Ondansetron Inj 2 Mg/Ml Inj 2 Ml IVP 05/04/25 17:31 Q6H PRN NAUSEA OR VOMITING Protocol Pantoprazole Sodium 40 mg 04/10/25 09:00 04/11/25 09:43 Pantoprazole 40 Mg Tablet PO 05/10/25 08:59 40 mg QDAY JOSELUIS Administration Protocol Sodium Chloride 3 ml 04/04/25 17:27 Sodium Chloride Rt Zo 0.9% 3 Ml Nebu INH 05/04/25 17:26 PRN PRN SOLN Plan In summary: 74-year-old male with PMHx of A-fib on ELIQUIS, HTN, T2DM, MOUNIKA/OHS, chronic respiratory failure, on home 2-3 L oxygen, presented with shortness of breath. Admitted for volume overload requiring intubation and aggressive diuresis. Subsequently extubated successfully, but has worsening hypercapnic respiratory failure. Appreciate recommendations from cardiology, nephrology, and neurology teams. 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 As stated previously, a few days ago, he had a RR for acute AMS where he was found unresponsive to painful stimuli. At the time MRI was done showing 90% stenosis of the posterior right cerebral artery junction at the P1?P2 segments. This high suspicion for recurrent TIA, likely resulting in central apnea, possible leading to irregular or ataxic breathing, which in his case would explain below findings. Per family patient had stroke 3 years ago, no residual deficit, head CT unremarkable. Carotid ultrasound showed no significant stenosis bilaterally. ? Continue ASPIRIN and ATORVASTATIN ? Pending neurology recommendations Acute metabolic encephalopathy Acute on chronic hypercapnic respiratory failure Contraction alkalosis with appropriate respiratory compensation (improving) CHF exacerbation Likely central sleep apnea, MOUNIKA, OHS Fluid overload status (resolved) Presented with volume overload and SOB, echo showed EF 65% with diastolic dysfunction. He has been on diuresis since. With a total of 9 L fluid removed. Overall oxygen demand improved from baseline, currently on 1 L NC. Continued on BiPAP HS. However this morning she was found acutely mildly encephalopathic, likely hypercapnia. Blood gas showed contraction alkalosis, compensation respiratory acidosis. Diuresis was held, and he continued on BiPAP intermittently and HS. CO2 improving overall. However mentation still waxing and waning, now higher suspicion for TIA as stated above. ? Maintain K > 4.0 and Mg > 2.0 ? Continue METOPROLOL succinate 100 mg HS ? Holding diuresis ? Continue BiPAP HS and intermittently throughout the day ? Pending trilogy approval Tachycardia A-fib CHADVASC2:6 HASBLED: 3 History of A-fib, admission EKG showed A-fib with HR 88. New onset tachycardia, likely 2/2 beta agonist, or reactive to volume loss. Although high risk for RVR given recurrent tachycardia. Overnight had an episode of HR 123 was resolved after METOPROLOL x 1. ? Continue METOPROLOL as above ? Continue ELIQUIS 5 mg BID ? Maintain K > 4.0 and Mg > 2.0 ? Pending further recommendation from cardiology HTN HLD Currently normotensive with METOPROLOL as above. ? Unable to resume home HCTZ and LOSARTAN 2/2 ? Continue home ATORVASTATIN Hematuria Asymptomatic pyuria [place] showing dark urine, UA showed dark red urine, cloudy, 3+ blood, 1+ protein, LE positive, 3954 RBCs, 426 WBC. Given acute spikes in WBC. Will treat for UTI, although he is asymptomatic. ? Started CIPROFLOXACIN (04/11 to present) ? Pending urine culture (improving) Baseline CR 1.1. Has new with CR 1.4 > 1.7, likely 2/2 volume loss 2/2 diuresis. We have repleted with 1 L NS, and withheld diuresis for now. Nephrology on board, recommended no fluids or diuresis, just monitoring output and renal function. He has adequate urine output, and renal function improving overall. ? Renally dose meds, avoid overdiuresis and NEPHROTOXINS ? Daily CMP ? Pending urine electrolytes, microalbumin Pneumonia, CAP versus aspiration Reactive leukocytosis Suspected bibasilar pneumonia on CXR from 04/04. Suspected aspiration given BiPAP use, although currently denies cough. Afebrile, leukocytosis likely reactive 2/2 STEROIDS. Repeat CXR 04/09 showed no pneumonia. Pancultures have all been negative. AZITHROMYCIN and ZOSYN were discontinued. ? Monitor closely Hepatomegaly Hyperbilirubinemia, direct [place] differential including: Gilbert syndrome, ineffective erythropoiesis, or hemolysis. CT showed hepatomegaly. Liver ultrasound showed borderline thickened gallbladder, again hepatomegaly, fatty infiltrate of the liver, no focal liver lesion. LFTs overall WNL. However, total bilirubin alternating between 1.5 and 4.5, and appears chronic. He denies abdominal pain. Low suspicion for cholangitis. Acute hepatitis panel was negative, although he is not immunized. ? Recommended outpatient GI workup for ? Recommended hepatitis B amputation series T2DM Relatively controlled, A1c 6.9 ? INSULIN sliding scale ? Accu-Cheks Electrolyte abnormalities ? Replete as needed Normocytic normochromic anemia (resolved) Hemoglobin stable. ? Daily labs Health maintenance Diet: Cardiac GI prophylaxis: PROTONIX DVT prophylaxis: ELIQUIS Antibiotics: CIPROFLOXACIN CODE STATUS: Full code Disposition: Treating hypercapnia Case was discussed with attending physician. Vijay Bess DO PGY II This document was transcribed using voice recognition technology. Minor inaccuracies may be present. Attending Provider Attestation/Addendum Patient seen and examined. He is arousable but easily goes back to sleep. He is using BiPAP. He has hypercapnic respiratory failure. CO2 is 37. Chest x- ray reviewed shows no pneumonia or right-sided. No effusion seen. No pneumothorax. He has chronic A-fib. Heart rate controlled. The patient has BPH on alfuzosin. Patient may benefit from trial of acetazolamide use. Of note he also has stenosis of posterior cerebral artery. TIA is a differential diagnosis although most likely is having acute encephalopathy from hypercapnia. Discussed with housestaff.
--- NOTE | 2025-04-11 16:40 | PD.RESPRO ---
Documentation for date of: 04/11/25 Subjective Subjective Interval history: Patient seen and examined at the bedside this morning. He seemed tired and was sleeping this morning. He reported doing well. Confusion has improved. He denied any SOB, chest pain, dizziness, headache, abdominal pain, admitted mild orthopnea but denied PND, or palpitations. Reported drinking,and total urine output has been 2.5L in last 24 hours. Mild improvement in creatinine, and improvement in urine output suggestive of resolving possible ATN. cr 3.6 to 3.1 Negative by ~ 9L since admission Hold off on lasix due to concern regarding mild 2/2 possible ATN and contraction alkalosis. Recommend to start physical therapy for the patient and evaluate his oxygen needs if he needs oxygen via nasal cannula. Presently, patient needs 2 to 3 L oxygen via nasal cannula only at night. Recommend to keep saturation between 88 to 92%. Strict ins and outs, 2L fluid restriction Incorporated with diet Keep magnesium and potassium greater than 2 and 4 respectively all the time TTE was significant for diastolic dysfunction, but unable to grade because of atrial fibrillation, LVEF 60 to 65%. Recommended to further evaluate urine protein level, as it was 2+. Aspirin 81 Mg daily, Eliquis 5 Mg twice daily, metoprolol succinate 100 Mg daily and atorvastatin 40 Mg daily at night to maintain LDL level less than 55 in the setting of past medical history of hypertension, diabetes mellitus and stroke. Atorvastatin 40 Mg daily at night. Metoprolol succinate 100 Mg daily. Exam Vital Signs Temp Pulse Resp BP Pulse Ox O2 Del Method O2 Flow Rate 97.6 F 79 19 112/67 99 Nasal Cannula 6 04/11/25 12:00 04/11/25 14:47 04/11/25 14:47 04/11/25 12:00 04/11/25 14:47 04/11/25 12:00 04/11/25 12:00 FiO2 40 04/11/25 14:47 Narrative Exam General: Obese, cooperative gentleman, no acute distress, A & O x3 HEENT: Moist mucous membranes, oropharynx clear Neck: Supple, No masses, No JVD CVS: Irregularly irregular rate and rhythm, No murmurs, rubs or gallops Lungs: Clear lung sounds, no wheeze or crackles, no rhonchi Abd: Mildly distended/ NT, +BS, unable to appreciate any organomegaly Ext: No peripheral edema, palpable peripheral pulses Skin: Darkening of bilateral lower legs Psych: Appropriate mood and affect Objective Labs 04/11/25 04:55 04/11/25 04:55 Labs: Laboratory Results - last 24 hr 04/10/25 04/10/25 04/10/25 17:17 17:24 22:25 WBC RBC Hgb Hct MCV MCH MCHC RDW Std Deviation Plt Count Neut % (Auto) Lymph % (Auto) [place] % (Auto) Eos % (Auto) Baso % (Auto) Neut # (Auto) Lymph # (Auto) [place] # (Auto) Eos # (Auto) Baso # (Auto) Immature Gran # (Auto) Absolute Nucleated RBC Immature Gran % Nucleated RBC % Puncture Site Left Radial ABG pH 7.40 ABG pCO2 68 H ABG pO2 77 L ABG HCO3 42 H ABG O2 Saturation 95 ABG Base Excess 14 H Oxygen Liter Flow 4 Sodium 139 Potassium 4.9 Chloride 90 L Carbon Dioxide 38.1 H Anion Gap 11 BUN 61 H Creatinine 3.6 H D Estim Creat Clear Calc 21.6 L eGFR 17 L BUN/Creatinine Ratio 17 Glucose 153 H Calculated Osmolality 297 H Lactic Acid 1.5 Calcium 8.9 Corrected Calcium 9.1 Phosphorus Magnesium Total Bilirubin 2.1 H D AST 27 ALT 13 Alkaline Phosphatase 69 Ammonia 22 Total Protein 5.9 Albumin 3.7 Globulin 2.2 L Albumin/Globulin Ratio 1.7 Ur Collection Type Urine Color Urine Clarity Urine pH Ur Specific [place] Urine Protein Urine Glucose (UA) Urine Ketones Urine Blood Urine Nitrite Urine Bilirubin Urine Urobilinogen (Auto) Ur Leukocyte Esterase Urine RBC Urine WBC Ur Squamous Epith Cells Urine Bacteria Urine Yeast (Budding) Ur Random Sodium 38.5 04/11/25 04/11/25 04:55 12:40 WBC 13.4 H RBC 5.40 Hgb 14.7 D Hct 47.0 MCV 87 MCH 27.2 MCHC 31.3 RDW Std Deviation 51.7 H Plt Count 185 Neut % (Auto) 78 Lymph % (Auto) 10 [place] % (Auto) 9 Eos % (Auto) 2 Baso % (Auto) 0 Neut # (Auto) 10.4 H Lymph # (Auto) 1.4 [place] # (Auto) 1.2 H Eos # (Auto) 0.3 Baso # (Auto) 0.1 Immature Gran # (Auto) 0.03 H Absolute Nucleated RBC 0.00 Immature Gran % 0 Nucleated RBC % 0 Puncture Site ABG pH ABG pCO2 ABG pO2 ABG HCO3 ABG O2 Saturation ABG Base Excess Oxygen Liter Flow Sodium 140 Potassium 4.1 D Chloride 91 L Carbon Dioxide 37.6 H Anion Gap 11 BUN 50 H Creatinine 3.1 H D Estim Creat Clear Calc 25.1 L eGFR 20 L BUN/Creatinine Ratio 16 Glucose 118 H Calculated Osmolality 293 Lactic Acid Calcium 8.0 L Corrected Calcium 8.7 Phosphorus 5.5 H Magnesium 2.8 H Total Bilirubin 1.9 H AST 17 ALT 10 Alkaline Phosphatase 63 Ammonia Total Protein 5.6 L Albumin 3.1 L D Globulin 2.5 Albumin/Globulin Ratio 1.2 Ur Collection Type Catheter Urine Color Drk-Red A Urine Clarity Cloudy A Urine pH 5.5 Ur Specific [place] 1.011 Urine Protein 1+ A Urine Glucose (UA) Negative Urine Ketones Negative Urine Blood 3+ A Urine Nitrite Negative Urine Bilirubin Negative Urine Urobilinogen (Auto) Negative Ur Leukocyte Esterase Positive Urine RBC 3954 H Urine WBC 426 H Ur Squamous Epith Cells 0 Urine Bacteria None Urine Yeast (Budding) Present A Ur Random Sodium ABG Interpretation ABG results: 04/04/25 04/04/25 04/04/25 13:42 17:07 18:33 ABG pH 7.14 L* 7.20 L ABG pCO2 107 H* 111 H* ABG pO2 85 78 L ABG HCO3 36 H 39 H ABG O2 Saturation 94 92 ABG Base Excess 4 H 6 H VBG pH 7.48 VBG pCO2 50 VBG pO2 82 H VBG Base Excess 11 H 04/04/25 04/04/25 04/04/25 19:35 22:40 23:52 ABG pH 7.16 L* 7.59 H D 7.53 H ABG pCO2 113 H* 37 D 45 ABG pO2 53 L* D 194 H D 87 D ABG HCO3 40 H 36 H 37 H ABG O2 Saturation 78 L 101 H 99 H ABG Base Excess 7 H 13 H 13 H VBG pH VBG pCO2 VBG pO2 VBG Base Excess 04/05/25 04/05/25 04/05/25 01:20 04:52 13:02 ABG pH 7.52 H 7.47 H 7.30 L D ABG pCO2 47 50 H 74 H* D ABG pO2 60 L D 60 L 64 L ABG HCO3 38 H 37 H 37 H ABG O2 Saturation 94 93 89 L ABG Base Excess 13 H 11 H 7 H VBG pH VBG pCO2 VBG pO2 VBG Base Excess 04/06/25 04/07/25 04/09/25 03:55 10:54 04:42 ABG pH 7.36 7.50 H ABG pCO2 70 H 63 H ABG pO2 101 D 57 L* ABG HCO3 39 H 49 H ABG O2 Saturation 98 91 ABG Base Excess 10 H 21 H VBG pH 7.40 VBG pCO2 67 H D VBG pO2 76 H VBG Base Excess 13 H 04/09/25 04/09/25 04/09/25 06:25 13:10 22:47 ABG pH 7.52 H 7.47 H ABG pCO2 56 H 61 H ABG pO2 79 L D 62 L ABG HCO3 46 H 44 H ABG O2 Saturation 97 92 ABG Base Excess 19 H 16 H VBG pH 7.56 VBG pCO2 52 D VBG pO2 43 D VBG Base Excess 21 H 04/10/25 04/10/25 04/10/25 05:22 12:07 17:17 ABG pH 7.43 7.40 ABG pCO2 64 H 68 H ABG pO2 64 L 77 L ABG HCO3 43 H 42 H ABG O2 Saturation 92 95 ABG Base Excess 15 H 14 H VBG pH 7.55 VBG pCO2 45 VBG pO2 76 H D VBG Base Excess 15 H Quality Measures Quality Measures VTE prophylaxis Advance care planning discussed with:: patient and sibling Assessment & Plan Assessment Current Active Medications: Generic Name Dose Route Start Last Admin Trade Name Vamsi PRN Reason Stop Dose Admin Acetaminophen 650 mg 04/04/25 17:27 Acetaminophen 325 Mg Tablet PO 05/04/25 17:26 Q6H PRN Fever >100 or pain 1-3 Apixaban 5 mg 04/07/25 21:00 04/11/25 09:42 Apixaban 2.5 Mg Tablet PO 05/07/25 20:59 5 mg BID JOSELUIS Administration Aspirin 81 mg 04/05/25 09:00 04/11/25 09:43 Aspirin Ec 81 Mg Tabec PO 05/05/25 08:59 81 mg QDAY JOSELUIS Administration Atorvastatin Calcium 40 mg 04/07/25 21:00 04/10/25 21:03 Atorvastatin Calcium 20 Mg Tablet PO 05/07/25 20:59 40 mg HS JOSELUIS Administration Ciprofloxacin 250 mg 04/11/25 21:00 Ciprofloxacin Hcl 250 Mg Tablet PO 04/18/25 20:59 BID JOSELUIS Alfuzosin Er 10 Mg 0 ea 04/11/25 13:45 Tablet PO 05/11/25 13:44 QDAY JOSELUIS Dextrose 25 ml 04/04/25 17:38 Dextrose 50%-Water Inj 50 Ml Syringe IV 05/04/25 17:37 Q15MIN PRN BG 50-70 responsive npo pt Dextrose 50 ml 04/04/25 17:38 Dextrose 50%-Water Inj 50 Ml Syringe IV 05/04/25 17:37 Q15MIN PRN BG <50 OR BG <70 & pt unresponsive Glucagon 1 mg 04/04/25 17:38 Glucagon Inj 1 Mg Vial IM Q15MIN PRN BG <70, and no IV access Insulin Glargine 5 unit 04/06/25 21:00 04/10/25 21:03 Insulin Glargine (Lantus) 5 Unit/0.05 Ml (Per 5 Units) SC 05/06/25 20:59 5 unit HS JOSELUIS Administration Insulin Human Lispro 0 unit 04/07/25 07:30 04/11/25 11:56 Insulin Lispro (Admelog) 1 Unit/0.01 Ml Unit SC 05/07/25 07:29 2 unit ACHS JOSELUIS Administration Protocol Ipratropium [place] 0.5 mg 04/07/25 07:45 04/11/25 14:47 Ipratropium Rt 0.5 Mg/ 2.5 Ml Nebu INH 05/07/25 07:44 0.5 mg Q8HRRT JOSELUIS Administration Levalbuterol HCl 1.25 mg 04/07/25 07:45 04/11/25 14:47 Levalbuterol Rt 1.25 Mg/0.5 Ml Nebu INH 05/07/25 07:44 1.25 mg Q8HRRT JOSELUIS Administration Metoprolol Succinate 100 mg 04/06/25 21:00 04/10/25 21:03 Metoprolol Succinate Xl 25 Mg Tabcr PO 05/06/25 20:59 100 mg HS JOSELUIS Administration Ondansetron HCl 4 mg 04/04/25 17:32 Ondansetron Inj 2 Mg/Ml Inj 2 Ml IVP 05/04/25 17:31 Q6H PRN NAUSEA OR VOMITING Protocol Pantoprazole Sodium 40 mg 04/10/25 09:00 04/11/25 09:43 Pantoprazole 40 Mg Tablet PO 05/10/25 08:59 40 mg QDAY JOSELUIS Administration Protocol Sodium Chloride 3 ml 04/04/25 17:27 Sodium Chloride Rt Zo 0.9% 3 Ml Nebu INH 05/04/25 17:26 PRN PRN SOLN Plan The patient is a 74-year-old male with past medical history significant for hypertension, possible CAD, chronic A-fib, type 2 diabetes mellitus, MOUNIKA and acute CVA in 2019 presented to ED with chief complaint of worsening SOB for the past couple of months is currently being managed for acute on chronic hypoxic respiratory failure. Cardiology consultation was done for further management of possible new onset CHF exacerbation in the setting of longstanding atrial fibrillation. # 2/2 #Possible ATN Improving The patient presented initially with volume overload in the setting of HFpEF exacerbation, and was diuresed about 9 L since admission. On 04/10/2025, the patient's creatinine was 1.4, and repeat creatinine after 1 L of bolus fluid was 1.7, and this morning it was 3.0, and repeat creatinine was 3.6. Urine output was less than 400 cc in 24 hours. On 04/11/2025, the patient had about 2.5 L of urine output, with mild improvement in creatinine to 3.1. - Patient started on IV normal saline 80 cc/h - Nephrology consultation done - Avoid nephrotoxic drugs - Renally dose medications - Daily a.m. labs were renal panel #Acute on chronic hypoxic respiratory failure 2/2 S/P extubation #New onset diastolic CHF exacerbation, in the setting of #Chronic atrial fibrillation #Aspiration pneumonia, resolved #MOUNIKA Patient presented with chief complaint of worsening of SOB for past couple of months, visited PCP for 2 times, was given some medications that did not help at all. The patient has history of longstanding atrial fibrillation diagnosed about 5 years ago, but patient is unaware of the situation. Physical exam is significant for generalized anasarca. Liver enzymes WNL, though suspicious for cirrhosis as there is irregular liver counter, but synthetic and detoxification function of liver is intact, suggestive of more likely acute new onset CHF exacerbation. TSH 1.35 [id number] score of 6 - Diuresed well - Hold diuretics - Metoprolol succinate 100 Mg daily at night for rate control - Maintain potassium and magnesium greater than 4 and greater than 2 all the time - Strict ins and out, fluid restriction of 2000 cc daily - Low-sodium diet - Patient education regarding CHF and atrial fibrillation - CPAP/BiPAP at night, as needed at daytime - Telemetry monitoring - Eliquis 5 Mg twice daily - Recommend to keep saturation between 88 to 92%. Recommend to start physical therapy for the patient and evaluate his oxygen needs if he needs oxygen via nasal cannula. Currently, back to baseline. Net Negative by ~ 9L since admission #Past medical history of acute CVA in 2019 #Hypertension #Hyperlipidemia #Possible CAD LDL 73 Blood pressure soft at this time -Aspirin 81 Mg daily -Lipitor 40 Mg daily at night, to maintain LDL level less than 55 in the setting of hypertension, diabetes mellitus type 2 and past medical history of CVA -Antihypertensive will be adjusted given the patient's heart rate and blood pressure, currently started on metoprolol succinate 100 Mg daily at night #DM type II, A1c 6.9 #Rule out cirrhosis #Proteinuria, to be further evaluated Rest of the management deferred to primary hospitalist team. Thank you for consulting cardiology team. We appreciate the opportunity to participate in this patient's care. Cardiology team will continue to follow-up on this patient care. The patient's management plan was discussed with my attending physician MD Escobar Torres MD, PGY3 Attending Provider Attestation/Addendum I have personally seen and examined the patient separately on the above date of service and discussed the plan of care with the resident. I reviewed the resident Dr. Escobar Francis consultation progress note and agree with the resident findings and plan in the note above and have also edited the documentation to reflect my findings and plan. Luis Toney M.D. Interventional Cardiology
[2025-04-11] MEDS: ALFUZOSIN ER 10 MG TABLET PO (16:57)
[2025-04-11] MEDS: METOPROLOL SUCCINATE XL 25 MG TABCR 100 MG PO (21:02)
[2025-04-11] MEDS: CIPROFLOXACIN HCL 250 MG TABLET PO (21:03)
[2025-04-11] MEDS: ATORVASTATIN CALCIUM 20 MG TABLET 40 MG PO (21:03)
[2025-04-11] MEDS: INSULIN GLARGINE (Lantus) 5 UNIT/0.05 ML (PER 5 UNITS) SC (21:09)
[2025-04-12] VITALS (12 sets, daily range): BP systolic 114–148; BP diastolic 75–94; PULSE 19–100; RESP 13–21; TEMP 36.1–36.7; O2SAT 94–99; BMI 35.3
--- NOTE | 2025-04-12 06:09 | PC.NURSE ---
Dr. Kirk notified regarding patient having 5 beat run of PVCs, now A. Fib with HR 55. also made aware that patient HR would drop into the 30s during the night but would not sustain (he was resting with eyes closed during that time), was in the 40s and is currently in the 50s.
[2025-04-12 06:42] LABS: Basophils # (Auto) 0.0 Thou/mm3 (0.0-0.2); Basophils % (Auto) 1 % (0-2.5); Eosinophils # (Auto) 0.3 Thou/mm3 (0.0-0.5); Eosinophils % (Auto) 3 % (0-10); Hematocrit 48.9 % (41.0-53.0); Hemoglobin 14.5 g/dL (13.5-16.0); Immature Granulocytes Auto 0.03 Thou/mm3 (0.00-0.00); Lymphocytes # (Auto) 0.9 Thou/mm3 (1.0-4.8); Lymphocytes % (Auto) 11 % (10-50); Mean Corpuscular HGB Conc 29.7 g/dl (31.0-37.0); Mean Corpuscular Hemoglobin 26.9 pg (25.0-35.0); Mean Corpuscular Volume 91 fL (80-100); Monocytes # (Auto) 0.8 Thou/mm3 (0.0-0.8); Monocytes % (Auto) 9 % (0-12); Neutrophils # (Auto) 6.5 Thou/mm3 (1.8-7.7); Neutrophils % (Auto) 76 % (37-80); Nucleated Red Blood Cell # 0.00 Thou/mm3 (0.00-0.00); Nucleated Red Blood Cell % 0 /100 WBC (0); Platelet Count 163 Thou/mm3 (140-440); RDW Standard Deviation 53.0 fL (35.1-43.9); Red Blood Count 5.39 Miln/mm3 (4.50-5.90); White Blood Count 8.5 Thou/mm3 (3.8-10.6)
[2025-04-12] MEDS: LEVALBUTEROL RT 1.25 MG/0.5 ML NEBU INH ×3 (06:46→23:03)
[2025-04-12] MEDS: IPRATROPIUM RT 0.5 MG/ 2.5 ML NEBU INH ×3 (06:46→23:03)
[2025-04-12 06:59] LABS: Alanine Aminotransferase 12 U/L (10-49); Albumin, Serum 3.3 gm/dL (3.4-4.8); Albumin/Globulin Ratio 1.4 (1.2-2.2); Alkaline Phosphatase 77 U/L (46-116); Anion Gap 8 (7-16); Aspartate Amino Transferase 21 U/L (0-34); BUN/Creatinine Ratio 21 Ratio (12-20); Bilirubin,Total 1.2 mg/dL (0.3-1.2); Blood Urea Nitrogen 47 mg/dL (9-23); Calcium 8.1 mg/dL (8.3-10.6); Calcium (Corrected) 8.7 mg/dL (8.5-10.1); Carbon Dioxide 34.1 mMol/L (20.0-31.0); Chloride 96 mMol/L (98-107); Creatinine (Component) 2.2 mg/dL (0.6-1.3); Estimated Creatinine Clearance 34.6 mL/min (>60); Globulin 2.4 gm/dL (2.3-3.5); Glucose 163 mg/dL (74-106); Magnesium 2.4 mg/dL (1.6-2.6); Osmolality,Calculated 291 (275-295); Phosphorous 4.0 mg/dL (2.4-5.1); Potassium 3.6 mMol/L (3.4-5.1); Sodium 138 mMol/L (136-145); Total Protein 5.7 gm/dL (5.7-8.2); eGFR 30 See Note
[2025-04-12] MEDS: ASPIRIN EC 81 MG TABEC PO (10:16)
[2025-04-12] MEDS: APIXABAN 2.5 MG TABLET 5 MG PO ×2 (10:16→20:52)
[2025-04-12] MEDS: PANTOPRAZOLE 40 MG TABLET PO (10:17)
[2025-04-12] MEDS: CIPROFLOXACIN HCL 250 MG TABLET PO ×2 (10:17→20:52)
[2025-04-12] MEDS: ALFUZOSIN ER 10 MG TABLET PO (10:23)
[2025-04-12] MEDS: INSULIN LISPRO (AdmeLOG) 1 UNIT/0.01 ML UNIT SC ×3 (13:04→20:51)
--- NOTE | 2025-04-12 13:25 | ESPR_ITS ---
Documentation for date of: 04/12/25 Subjective Subjective Interval history: Kade Dalal is a 74-year-old male with PMHx of A-fib on ELIQUIS, HTN, T2DM, MOUNIKA/OHS, chronic respiratory failure, on home 2-3 L oxygen, admitted for volume overload requiring intubation and aggressive diuresis and SOB. Echo showed EF 65% with diastolic dysfunction. He has been on diuresis since. With a total of 9 L fluid removed. Overall oxygen demand improved from baseline, currently on 1 L NC. Continued on BiPAP HS. Patient received 500 cc NS x2 after worsening contraction alkalosis was shown on chem panel and vbg/abg. Cardiology is considering DIAMOX if CO2 remains elevated. 04/10/2025 Patient was seen and examined. No acute events overnight. Patient is resting in bed and does not have any complaints or concerns. Patient states that he has been using the bipap machine at night even though at home he has not been taking it as much. Patient endorses making urine yesterday, but not any today, and passing stool. Patient denies having history of being unable to make urine in the past. Patient denies fatigue, dizziness, weakness, chest pain, shortness of breath, abdominal pain, dysuria. 04/11/2025 Patient had a rapid called yesterday evening for altered mental status, was found difficult to awaken, eventually became a&o x4 after multiple sternal rubs and returning back to baseline. This morning patient was doing well, vital signs stable, no new concerns/complaints. Patient denies fever, chest pain, shortness of breath. Patient's has been making urine, 1800 ml last 24 hr. Patient's moss bag appeared very dark in color this morning, maybe from traumatic insertion, will continue to monitor; will be given more IV fluids today. 04/12/2025 No acute events overnight. Patient has been making dark urine. Patient was not on fluids overnight, had improved creatinine levels this morning. Patient is Patient this morning does not have any new complaints or concerns. Patient denies having any fever, chest pain, shortness of breath. Nephrology is consulted in for likely due to prerenal azotemia secondary to over-diuresis. Exam Vital Signs Temp Pulse Resp BP Pulse Ox O2 Del Method O2 Flow Rate 97.2 F 67 21 H 118/79 97 BiPAP 3 04/12/25 08:00 04/12/25 08:00 04/12/25 08:00 04/12/25 08:00 04/12/25 08:00 04/12/25 08:00 04/11/25 21:41 FiO2 40 04/12/25 08:00 Narrative Exam Gen: alert and oriented x3, NAD, vitals reviewed Head/Neck: NCAT, no gross LAD ENT: EOMI grossly, anicteric sclerae, mmm Resp: Lungs CTAB, normal respiratory effort, symmetric chest rise CV: regular rhythm, regular rate; extremities well perfused GI: distended; no tenderness, normal bowel sounds present Ext: no clubbing, cyanosis. 1+ LE edema Skin: chronic venous stasis, no new rash or lesions on visual exam Neuro/MSK: moves all extremities Psych: normal mood; appropriate affect Objective Labs 04/12/25 04:40 04/12/25 04:40 Labs: Laboratory Results - last 24 hr 04/11/25 04/12/25 12:40 04:40 WBC 8.5 RBC 5.39 Hgb 14.5 Hct 48.9 MCV 91 MCH 26.9 MCHC 29.7 L RDW Std Deviation 53.0 H Plt Count 163 Neut % (Auto) 76 Lymph % (Auto) 11 [place] % (Auto) 9 Eos % (Auto) 3 Baso % (Auto) 1 Neut # (Auto) 6.5 Lymph # (Auto) 0.9 L [place] # (Auto) 0.8 Eos # (Auto) 0.3 Baso # (Auto) 0.0 Immature Gran # (Auto) 0.03 H Absolute Nucleated RBC 0.00 Immature Gran % 0 Nucleated RBC % 0 Sodium 138 Potassium 3.6 D Chloride 96 L Carbon Dioxide 34.1 H Anion Gap 8 BUN 47 H Creatinine 2.2 H D Estim Creat Clear Calc 34.6 L eGFR 30 L BUN/Creatinine Ratio 21 H Glucose 163 H Calculated Osmolality 291 Calcium 8.1 L Corrected Calcium 8.7 Phosphorus 4.0 Magnesium 2.4 Total Bilirubin 1.2 D AST 21 ALT 12 Alkaline Phosphatase 77 D Total Protein 5.7 Albumin 3.3 L Globulin 2.4 Albumin/Globulin Ratio 1.4 Ur Collection Type Catheter Urine Color Drk-Red A Urine Clarity Cloudy A Urine pH 5.5 Ur Specific [place] 1.011 Urine Protein 1+ A Urine Glucose (UA) Negative Urine Ketones Negative Urine Blood 3+ A Urine Nitrite Negative Urine Bilirubin Negative Urine Urobilinogen (Auto) Negative Ur Leukocyte Esterase Positive Urine RBC 3954 H Urine WBC 426 H Ur Squamous Epith Cells 0 Urine Bacteria None Urine Yeast (Budding) Present A ABG Interpretation ABG results: 04/04/25 04/04/25 04/04/25 13:42 17:07 18:33 ABG pH 7.14 L* 7.20 L ABG pCO2 107 H* 111 H* ABG pO2 85 78 L ABG HCO3 36 H 39 H ABG O2 Saturation 94 92 ABG Base Excess 4 H 6 H VBG pH 7.48 VBG pCO2 50 VBG pO2 82 H VBG Base Excess 11 H 04/04/25 04/04/25 04/04/25 19:35 22:40 23:52 ABG pH 7.16 L* 7.59 H D 7.53 H ABG pCO2 113 H* 37 D 45 ABG pO2 53 L* D 194 H D 87 D ABG HCO3 40 H 36 H 37 H ABG O2 Saturation 78 L 101 H 99 H ABG Base Excess 7 H 13 H 13 H VBG pH VBG pCO2 VBG pO2 VBG Base Excess 04/05/25 04/05/25 04/05/25 01:20 04:52 13:02 ABG pH 7.52 H 7.47 H 7.30 L D ABG pCO2 47 50 H 74 H* D ABG pO2 60 L D 60 L 64 L ABG HCO3 38 H 37 H 37 H ABG O2 Saturation 94 93 89 L ABG Base Excess 13 H 11 H 7 H VBG pH VBG pCO2 VBG pO2 VBG Base Excess 04/06/25 04/07/25 04/09/25 03:55 10:54 04:42 ABG pH 7.36 7.50 H ABG pCO2 70 H 63 H ABG pO2 101 D 57 L* ABG HCO3 39 H 49 H ABG O2 Saturation 98 91 ABG Base Excess 10 H 21 H VBG pH 7.40 VBG pCO2 67 H D VBG pO2 76 H VBG Base Excess 13 H 04/09/25 04/09/25 04/09/25 06:25 13:10 22:47 ABG pH 7.52 H 7.47 H ABG pCO2 56 H 61 H ABG pO2 79 L D 62 L ABG HCO3 46 H 44 H ABG O2 Saturation 97 92 ABG Base Excess 19 H 16 H VBG pH 7.56 VBG pCO2 52 D VBG pO2 43 D VBG Base Excess 21 H 04/10/25 04/10/25 04/10/25 05:22 12:07 17:17 ABG pH 7.43 7.40 ABG pCO2 64 H 68 H ABG pO2 64 L 77 L ABG HCO3 43 H 42 H ABG O2 Saturation 92 95 ABG Base Excess 15 H 14 H VBG pH 7.55 VBG pCO2 45 VBG pO2 76 H D VBG Base Excess 15 H Quality Measures Quality Measures VTE prophylaxis Advance care planning discussed with:: patient Assessment & Plan Assessment Current Active Medications: Generic Name Dose Route Start Last Admin Trade Name Freq PRN Reason Stop Dose Admin Acetaminophen 650 mg 04/04/25 17:27 Acetaminophen 325 Mg Tablet PO 05/04/25 17:26 Q6H PRN Fever >100 or pain 1-3 Apixaban 5 mg 04/07/25 21:00 04/12/25 10:16 Apixaban 2.5 Mg Tablet PO 05/07/25 20:59 5 mg BID JOSELUIS Administration Aspirin 81 mg 04/05/25 09:00 04/12/25 10:16 Aspirin Ec 81 Mg Tabec PO 05/05/25 08:59 81 mg QDAY JOSELUIS Administration Atorvastatin Calcium 40 mg 04/07/25 21:00 04/11/25 21:03 Atorvastatin Calcium 20 Mg Tablet PO 05/07/25 20:59 40 mg HS JOSELUIS Administration Ciprofloxacin 250 mg 04/11/25 21:00 04/12/25 10:17 Ciprofloxacin Hcl 250 Mg Tablet PO 04/18/25 20:59 250 mg BID JOSELUIS Administration Alfuzosin Er 10 Mg 0 ea 04/11/25 13:45 04/12/25 10:23 Tablet PO 05/11/25 13:44 1 tablet QDAY JOSELUIS Administration Dextrose 25 ml 04/04/25 17:38 Dextrose 50%-Water Inj 50 Ml Syringe IV 05/04/25 17:37 Q15MIN PRN BG 50-70 responsive npo pt Dextrose 50 ml 04/04/25 17:38 Dextrose 50%-Water Inj 50 Ml Syringe IV 05/04/25 17:37 Q15MIN PRN BG <50 OR BG <70 & pt unresponsive Glucagon 1 mg 04/04/25 17:38 Glucagon Inj 1 Mg Vial IM Q15MIN PRN BG <70, and no IV access Insulin Glargine 5 unit 04/06/25 21:00 04/11/25 21:09 Insulin Glargine (Lantus) 5 Unit/0.05 Ml (Per 5 Units) SC 05/06/25 20:59 5 unit HS JOSELUIS Administration Insulin Human Lispro 0 unit 04/07/25 07:30 04/12/25 13:04 Insulin Lispro (Admelog) 1 Unit/0.01 Ml Unit SC 05/07/25 07:29 1 unit ACHS JOSELUIS Administration Protocol Ipratropium [place] 0.5 mg 04/07/25 07:45 04/12/25 06:46 Ipratropium Rt 0.5 Mg/ 2.5 Ml Nebu INH 05/07/25 07:44 0.5 mg Q8HRRT JOSELUIS Administration Levalbuterol HCl 1.25 mg 04/07/25 07:45 04/12/25 06:46 Levalbuterol Rt 1.25 Mg/0.5 Ml Nebu INH 05/07/25 07:44 1.25 mg Q8HRRT JOSELUIS Administration Metoprolol Succinate 100 mg 04/06/25 21:00 04/11/25 21:02 Metoprolol Succinate Xl 25 Mg Tabcr PO 05/06/25 20:59 100 mg HS JOSELUIS Administration Ondansetron HCl 4 mg 04/04/25 17:32 Ondansetron Inj 2 Mg/Ml Inj 2 Ml IVP 05/04/25 17:31 Q6H PRN NAUSEA OR VOMITING Protocol Pantoprazole Sodium 40 mg 04/10/25 09:00 04/12/25 10:17 Pantoprazole 40 Mg Tablet PO 05/10/25 08:59 40 mg QDAY JOSELUIS Administration Protocol Sodium Chloride 3 ml 04/04/25 17:27 Sodium Chloride Rt Zo 0.9% 3 Ml Nebu INH 05/04/25 17:26 PRN PRN SOLN Plan In summary: 74-year-old male with PMHx of A-fib on ELIQUIS, HTN, T2DM, MOUNIKA/OHS, chronic respiratory failure, on home 2-3 L oxygen, presented with shortness of breath. Admitted for volume overload requiring intubation and aggressive diuresis. Subsequently extubated successfully, but has worsening hypercapnic respiratory failure. Nephrology consulted for management of . # Acute Kidney Injury Likely ATN with Cr now improving (at 2.2 currently); Patient initially noted to have with current Cr 3.0 (over baseline ~1.0). Suspect pre-renal due to over-diuresis in context of chf exacerbation. Holding fluids due to patient's volume status appearing full. Denies dizziness, weakness. Patient UOP 1600 last 24 hrs. Today urine in moss looked dark colored. - hold fluids - hold further diuresis - monitor MAP, UOP, e-lytes, creatinine - consider PO midoddrine 10 mg TID - About 8.5 L net output for hospital stay - renally dose medications - hold nephrotoxic meds Acute metabolic encephalopathy Acute on chronic hypercapnic respiratory failure Contraction alkalosis with appropriate respiratory compensation CHF exacerbation MOUNIKA, OHS Fluid overload status (resolved) Tachycardia A-fib HTN HLD Pneumonia, CAP versus aspiration Reactive leukocytosis Hepatomegaly Hyperbilirubinemia, direct Normocytic normochromic anemia Hematuria T2DM Hx of CVA. Electrolyte abnormalities Above problems Medically managed through the primary team Thank you for allowing us to take part in the care of Mr. Dalal Plan of care discussed with attending, Dr. Jorgito Srivastava MD PGY-1 Attending Provider Attestation/Addendum Patient seen and examined with resident physician Dr. Srivastava. Note reviewed, agree with findings and recommendations. Clinically patient looks rather dehydrated. Hemoglobin 16.9. Patient seems to be sleepy when I examined him. Could not get much information. Spoke to sister. Hold off on diuretics. Give 1 L IV fluids with close monitoring of urinary output and creatinine. Plan of care discussed with Sister Wendy at bedside. 04/12/2025 patient currently seen in telemetry. Patient currently on BiPAP. Hematuria noted. Recommended bladder irrigation. Creatinine 3.1-2.2. Will monitor closely. Plan of care discussed with the sister at bedside
--- NOTE | 2025-04-12 14:54 | ESPR_ITS ---
Documentation for date of: 04/12/25 Subjective Subjective Interval history: No acute overnight events. Reports feeling better this morning. Mentation appears much better than previous. Denies fever, chills, headaches, chest pain, sob, cough, GI or urinary symptoms. Overall stable, nephrology watching renal function for an additional day, will likely discharge tomorrow if renal function continues to improve. Exam Vital Signs Temp Pulse Resp BP Pulse Ox O2 Del Method O2 Flow Rate 97.2 F 77 18 118/79 95 BiPAP 4 04/12/25 08:00 04/12/25 14:41 04/12/25 14:41 04/12/25 08:00 04/12/25 14:41 04/12/25 08:00 04/12/25 14:41 FiO2 40 04/12/25 08:00 Narrative Exam Gen: alert and oriented x3, NAD, vitals reviewed Head/Neck: NCAT, no gross LAD ENT: EOMI grossly, anicteric sclerae, mmm Resp: Lungs CTAB, normal respiratory effort, symmetric chest rise CV: regular rhythm, regular rate; extremities well perfused GI: distended; no tenderness, normal bowel sounds present Ext: no clubbing, cyanosis. Trace LE edema bilaterally Skin: chronic venous stasis, no new rash or lesions on visual exam Neuro/MSK: moves all extremities Psych: normal mood; appropriate affect Objective Labs 04/13/25 05:50 04/13/25 05:50 Labs: Laboratory Results - last 24 hr 04/12/25 04:40 WBC 8.5 RBC 5.39 Hgb 14.5 Hct 48.9 MCV 91 MCH 26.9 MCHC 29.7 L RDW Std Deviation 53.0 H Plt Count 163 Neut % (Auto) 76 Lymph % (Auto) 11 [place] % (Auto) 9 Eos % (Auto) 3 Baso % (Auto) 1 Neut # (Auto) 6.5 Lymph # (Auto) 0.9 L [place] # (Auto) 0.8 Eos # (Auto) 0.3 Baso # (Auto) 0.0 Immature Gran # (Auto) 0.03 H Absolute Nucleated RBC 0.00 Immature Gran % 0 Nucleated RBC % 0 Sodium 138 Potassium 3.6 D Chloride 96 L Carbon Dioxide 34.1 H Anion Gap 8 BUN 47 H Creatinine 2.2 H D Estim Creat Clear Calc 34.6 L eGFR 30 L BUN/Creatinine Ratio 21 H Glucose 163 H Calculated Osmolality 291 Calcium 8.1 L Corrected Calcium 8.7 Phosphorus 4.0 Magnesium 2.4 Total Bilirubin 1.2 D AST 21 ALT 12 Alkaline Phosphatase 77 D Total Protein 5.7 Albumin 3.3 L Globulin 2.4 Albumin/Globulin Ratio 1.4 ABG Interpretation ABG results: 04/04/25 04/04/25 04/04/25 13:42 17:07 18:33 ABG pH 7.14 L* 7.20 L ABG pCO2 107 H* 111 H* ABG pO2 85 78 L ABG HCO3 36 H 39 H ABG O2 Saturation 94 92 ABG Base Excess 4 H 6 H VBG pH 7.48 VBG pCO2 50 VBG pO2 82 H VBG Base Excess 11 H 04/04/25 04/04/25 04/04/25 19:35 22:40 23:52 ABG pH 7.16 L* 7.59 H D 7.53 H ABG pCO2 113 H* 37 D 45 ABG pO2 53 L* D 194 H D 87 D ABG HCO3 40 H 36 H 37 H ABG O2 Saturation 78 L 101 H 99 H ABG Base Excess 7 H 13 H 13 H VBG pH VBG pCO2 VBG pO2 VBG Base Excess 04/05/25 04/05/25 04/05/25 01:20 04:52 13:02 ABG pH 7.52 H 7.47 H 7.30 L D ABG pCO2 47 50 H 74 H* D ABG pO2 60 L D 60 L 64 L ABG HCO3 38 H 37 H 37 H ABG O2 Saturation 94 93 89 L ABG Base Excess 13 H 11 H 7 H VBG pH VBG pCO2 VBG pO2 VBG Base Excess 04/06/25 04/07/25 04/09/25 03:55 10:54 04:42 ABG pH 7.36 7.50 H ABG pCO2 70 H 63 H ABG pO2 101 D 57 L* ABG HCO3 39 H 49 H ABG O2 Saturation 98 91 ABG Base Excess 10 H 21 H VBG pH 7.40 VBG pCO2 67 H D VBG pO2 76 H VBG Base Excess 13 H 04/09/25 04/09/25 04/09/25 06:25 13:10 22:47 ABG pH 7.52 H 7.47 H ABG pCO2 56 H 61 H ABG pO2 79 L D 62 L ABG HCO3 46 H 44 H ABG O2 Saturation 97 92 ABG Base Excess 19 H 16 H VBG pH 7.56 VBG pCO2 52 D VBG pO2 43 D VBG Base Excess 21 H 04/10/25 04/10/25 04/10/25 05:22 12:07 17:17 ABG pH 7.43 7.40 ABG pCO2 64 H 68 H ABG pO2 64 L 77 L ABG HCO3 43 H 42 H ABG O2 Saturation 92 95 ABG Base Excess 15 H 14 H VBG pH 7.55 VBG pCO2 45 VBG pO2 76 H D VBG Base Excess 15 H Quality Measures Quality Measures VTE prophylaxis Advance care planning discussed with:: patient Assessment & Plan Assessment Current Active Medications: Generic Name Dose Route Start Last Admin Trade Name Freq PRN Reason Stop Dose Admin Acetaminophen 650 mg 04/04/25 17:27 Acetaminophen 325 Mg Tablet PO 05/04/25 17:26 Q6H PRN Fever >100 or pain 1-3 Apixaban 5 mg 04/07/25 21:00 04/12/25 10:16 Apixaban 2.5 Mg Tablet PO 05/07/25 20:59 5 mg BID JOSELUIS Administration Aspirin 81 mg 04/05/25 09:00 04/12/25 10:16 Aspirin Ec 81 Mg Tabec PO 05/05/25 08:59 81 mg QDAY JOSELUIS Administration Atorvastatin Calcium 40 mg 04/07/25 21:00 04/11/25 21:03 Atorvastatin Calcium 20 Mg Tablet PO 05/07/25 20:59 40 mg HS JOSELUIS Administration Ciprofloxacin 250 mg 04/11/25 21:00 04/12/25 10:17 Ciprofloxacin Hcl 250 Mg Tablet PO 04/18/25 20:59 250 mg BID JOSELUIS Administration Alfuzosin Er 10 Mg 0 ea 04/11/25 13:45 04/12/25 10:23 Tablet PO 05/11/25 13:44 1 tablet QDAY JOSELUIS Administration Dextrose 25 ml 04/04/25 17:38 Dextrose 50%-Water Inj 50 Ml Syringe IV 05/04/25 17:37 Q15MIN PRN BG 50-70 responsive npo pt Dextrose 50 ml 04/04/25 17:38 Dextrose 50%-Water Inj 50 Ml Syringe IV 05/04/25 17:37 Q15MIN PRN BG <50 OR BG <70 & pt unresponsive Glucagon 1 mg 04/04/25 17:38 Glucagon Inj 1 Mg Vial IM Q15MIN PRN BG <70, and no IV access Insulin Glargine 5 unit 04/06/25 21:00 04/11/25 21:09 Insulin Glargine (Lantus) 5 Unit/0.05 Ml (Per 5 Units) SC 05/06/25 20:59 5 unit HS JOSELUIS Administration Insulin Human Lispro 0 unit 04/07/25 07:30 04/12/25 13:04 Insulin Lispro (Admelog) 1 Unit/0.01 Ml Unit SC 05/07/25 07:29 1 unit ACHS JOSELUIS Administration Protocol Ipratropium [place] 0.5 mg 04/07/25 07:45 04/12/25 14:38 Ipratropium Rt 0.5 Mg/ 2.5 Ml Nebu INH 05/07/25 07:44 0.5 mg Q8HRRT JOSELUIS Administration Levalbuterol HCl 1.25 mg 04/07/25 07:45 04/12/25 14:39 Levalbuterol Rt 1.25 Mg/0.5 Ml Nebu INH 05/07/25 07:44 1.25 mg Q8HRRT JOSELUIS Administration Metoprolol Succinate 100 mg 04/06/25 21:00 04/11/25 21:02 Metoprolol Succinate Xl 25 Mg Tabcr PO 05/06/25 20:59 100 mg HS JOSELUIS Administration Ondansetron HCl 4 mg 04/04/25 17:32 Ondansetron Inj 2 Mg/Ml Inj 2 Ml IVP 05/04/25 17:31 Q6H PRN NAUSEA OR VOMITING Protocol Pantoprazole Sodium 40 mg 04/10/25 09:00 04/12/25 10:17 Pantoprazole 40 Mg Tablet PO 05/10/25 08:59 40 mg QDAY JOSELUIS Administration Protocol Sodium Chloride 3 ml 04/04/25 17:27 Sodium Chloride Rt Zo 0.9% 3 Ml Nebu INH 05/04/25 17:26 PRN PRN SOLN Plan In summary: 74-year-old male with PMHx of A-fib on ELIQUIS, HTN, T2DM, MOUNIKA/OHS, chronic respiratory failure, on home 2-3 L oxygen, presented with shortness of breath. Admitted for volume overload requiring intubation and aggressive diuresis. Subsequently extubated successfully, but has worsening hypercapnic respiratory failure. Appreciate recommendations from cardiology, nephrology, and neurology teams. 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 As stated previously, a few days ago, he had a RR for acute AMS where he was found unresponsive to painful stimuli. At the time MRI was done showing 90% stenosis of the posterior right cerebral artery junction at the P1?P2 segments. This high suspicion for recurrent TIA, likely resulting in central apnea, possible leading to irregular or ataxic breathing, which in his case would explain below findings. Per family patient had stroke 3 years ago, no residual deficit, head CT unremarkable. Carotid ultrasound showed no significant stenosis bilaterally. No recurrence of episodes. ? Continue ASPIRIN and ATORVASTATIN ? Neurology recommended outpatient follow-up, vascular surgery Acute metabolic encephalopathy Acute on chronic hypercapnic respiratory failure Contraction alkalosis with appropriate respiratory compensation (improving) CHF exacerbation Likely central sleep apnea, MOUNIKA, OHS Fluid overload status (resolved) Presented with volume overload and SOB, echo showed EF 65% with diastolic dysfunction. He has been on diuresis since. With a total of 9 L fluid removed. Overall oxygen demand improved from baseline, currently on 1 L NC. Continued on BiPAP HS. However this morning she was found acutely mildly encephalopathic, likely hypercapnia. Blood gas showed contraction alkalosis, compensation respiratory acidosis. Diuresis was held, and he continued on BiPAP intermittently and HS. CO2 improving overall. However mentation still waxing and waning, now higher suspicion for TIA as stated above. ? Maintain K > 4.0 and Mg > 2.0 ? Continue METOPROLOL succinate 100 mg HS ? Holding diuresis ? Continue BiPAP HS and intermittently throughout the day ? Trilogy has been approved and available on discharge Tachycardia (resolved) A-fib, rate controlled CHADVASC2:6 HASBLED: 3 History of A-fib, admission EKG showed A-fib with HR 88. New onset tachycardia, likely 2/2 beta agonist, or reactive to volume loss. Although high risk for RVR given recurrent tachycardia. Overnight had an episode of HR 123 was resolved after METOPROLOL x 1. ? Continue METOPROLOL as above ? Continue ELIQUIS 5 mg BID ? Maintain K > 4.0 and Mg > 2.0 ? Pending further recommendation from cardiology HTN HLD Currently normotensive with METOPROLOL as above. ? Unable to resume home HCTZ and LOSARTAN 2/2 ? Continue home ATORVASTATIN Hematuria Asymptomatic pyuria [place] showing dark urine, UA showed dark red urine, cloudy, 3+ blood, 1+ protein, LE positive, 3954 RBCs, 426 WBC. Given acute spikes in WBC. Will treat for UTI, although he is asymptomatic. ? Started CIPROFLOXACIN (04/11 to present) ? Pending urine culture Prerenal azotemia (improving) Baseline CR 1.1. Has new with CR 1.4 > 1.7, likely 2/2 volume loss 2/2 diuresis. We have repleted with 1 L NS, and withheld diuresis for now. Nephrology on board, recommended no fluids or diuresis, just monitoring output and renal function. He has adequate urine output, and renal function improving overall. ? Renally dose meds, avoid overdiuresis and NEPHROTOXINS ? Daily CMP ? Pending urine electrolytes, microalbumin Pneumonia, CAP versus aspiration Reactive leukocytosis Suspected bibasilar pneumonia on CXR from 04/04. Suspected aspiration given BiPAP use, although currently denies cough. Afebrile, leukocytosis likely reactive 2/2 STEROIDS. Repeat CXR 04/09 showed no pneumonia. Pancultures have all been negative. AZITHROMYCIN and ZOSYN were discontinued. ? Monitor closely Hepatomegaly Hyperbilirubinemia, direct Broad differential including: Gilbert syndrome, ineffective erythropoiesis, or hemolysis. CT showed hepatomegaly. Liver ultrasound showed borderline thickened gallbladder, again hepatomegaly, fatty infiltrate of the liver, no focal liver lesion. LFTs overall WNL. However, total bilirubin alternating between 1.5 and 4.5, and appears chronic. He denies abdominal pain. Low suspicion for cholangitis. Acute hepatitis panel was negative, although he is not immunized. ? Recommended outpatient GI workup for ? Recommended hepatitis B amputation series T2DM Relatively controlled, A1c 6.9 ? INSULIN sliding scale ? Accu-Cheks Electrolyte abnormalities ? Replete as needed Normocytic normochromic anemia (resolved) Hemoglobin stable. ? Daily labs Health maintenance Diet: Cardiac GI prophylaxis: PROTONIX DVT prophylaxis: ELIQUIS Antibiotics: CIPROFLOXACIN CODE STATUS: Full code Disposition: Treating hypercapnia Case was discussed with attending physician. Vijay Bess DO PGY II This document was transcribed using voice recognition technology. Minor inaccuracies may be present. Attending Provider Attestation/Addendum Patient admitted for encephalopathy, possible TIA. He has stenosis of the posterior cerebral artery. He has hyperbilirubinemia and dark-colored urine. He is pneumonia, hematuria. Patient has improving mentation. The patient has been afebrile and no worsening hypoxia. Continue current management. I discussed with and supervised the resident physician who took care of this patient. I agree with the assessment and plan as above.
--- NOTE | 2025-04-12 15:40 | PD.RESPRO ---
Documentation for date of: 04/12/25 Subjective Subjective Interval history: Patient examined at bedside, on BiPAP. Reports no new symptoms at this time. Denies headache, acute vision changes, paresthesias, weakness, palpitations, shortness of breath, cough, abdominal pain. Exam Vital Signs Temp Pulse Resp BP Pulse Ox O2 Del Method O2 Flow Rate 97.2 F 83 18 118/79 94 L BiPAP 4 04/12/25 08:00 04/12/25 14:41 04/12/25 14:41 04/12/25 08:00 04/12/25 14:41 04/12/25 08:00 04/12/25 14:41 FiO2 40 04/12/25 08:00 Narrative Exam General: No acute distress, well nourished Eye: PERRL, EOMI, normal conjunctiva, no scleral icterus HENT: Normocephalic, atraumatic, hearing intact to conversation at normal volume, moist oral mucosa Neck: Supple, non-tender, no JVD, no lymphadenopathy Lungs: Non-labored respirations, symmetric chest rise Heart: Peripheral pulses intact bilaterally Abdomen: Soft, non-tender, non-distended Musculoskeletal: Normal range of motion and strength Skin: Skin is warm, dry, b/l LE venous stasis dermatitis Psychiatric: Cooperative, appropriate mood and affect Neurologic: Mental status: Orientation: Oriented to person, place, time, and situation Communication: Patient is cooperative and can follow simple instructions Language: Speech fluent, normal rate and volume, comprehension intact Cranial nerves: CN II: Visual [place] intact CN III: Pupils equal, round, and reactive to light CN III, IV, : No gaze deviation, no nystagmus Horizontal pursuit: intact Vertical pursuit: intact Ptosis: none CN V: Facial sensation to light touch intact bilaterally at the forehead, cheeks, and jaw line CN VII: Face symmetric, no facial droop appreciated CN VIII: Able to hear and respond to conversation at normal volume, intact to finger rub CN IX, X: Palate elevation symmetric, uvula midline CN XI: Head turn and shoulder shrug strong, symmetric bilaterally CN XII: Normal tongue protrusion without deviation, no fasciculations Motor: Normal bulk and tone No atrophy No abnormal movements or fasciculations Muscle strength: Shoulder abduction: R 5/5 L 5/5 Elbow flexion: R 5/5 L 5/5 Elbow extension: R 5/5 L 5/5 Hip flexion: R 5/5 L 5/5 Hip extension: R 5/5 L 5/5 Knee flexion: R 5/5 L 5/5 Knee extension: R 5/5 L 5/5 Sensory: RUE: Light touch intact LUE: Light touch intact RLE: Light touch intact LLE: Light touch intact Reflexes: Biceps (C5-6): R 2+ L 2+ Brachioradialis (C5-6): R 2+ L 2+ Triceps (C7-8): R 2+ L 2+ Patellae (L3-4): R 2+ L 2+ Achilles (S1-2):R 2+ L 2+ Cerebellum: RUE: No dysmetria (finger to nose) LUE: No dysmetria (finger to nose) Objective Labs 04/15/25 04:47 04/15/25 04:47 Labs: Laboratory Results - last 24 hr 04/12/25 04:40 WBC 8.5 RBC 5.39 Hgb 14.5 Hct 48.9 MCV 91 MCH 26.9 MCHC 29.7 L RDW Std Deviation 53.0 H Plt Count 163 Neut % (Auto) 76 Lymph % (Auto) 11 [place] % (Auto) 9 Eos % (Auto) 3 Baso % (Auto) 1 Neut # (Auto) 6.5 Lymph # (Auto) 0.9 L [place] # (Auto) 0.8 Eos # (Auto) 0.3 Baso # (Auto) 0.0 Immature Gran # (Auto) 0.03 H Absolute Nucleated RBC 0.00 Immature Gran % 0 Nucleated RBC % 0 Sodium 138 Potassium 3.6 D Chloride 96 L Carbon Dioxide 34.1 H Anion Gap 8 BUN 47 H Creatinine 2.2 H D Estim Creat Clear Calc 34.6 L eGFR 30 L BUN/Creatinine Ratio 21 H Glucose 163 H Calculated Osmolality 291 Calcium 8.1 L Corrected Calcium 8.7 Phosphorus 4.0 Magnesium 2.4 Total Bilirubin 1.2 D AST 21 ALT 12 Alkaline Phosphatase 77 D Total Protein 5.7 Albumin 3.3 L Globulin 2.4 Albumin/Globulin Ratio 1.4 ABG Interpretation ABG results: 04/04/25 04/04/25 04/04/25 13:42 17:07 18:33 ABG pH 7.14 L* 7.20 L ABG pCO2 107 H* 111 H* ABG pO2 85 78 L ABG HCO3 36 H 39 H ABG O2 Saturation 94 92 ABG Base Excess 4 H 6 H VBG pH 7.48 VBG pCO2 50 VBG pO2 82 H VBG Base Excess 11 H 04/04/25 04/04/25 04/04/25 19:35 22:40 23:52 ABG pH 7.16 L* 7.59 H D 7.53 H ABG pCO2 113 H* 37 D 45 ABG pO2 53 L* D 194 H D 87 D ABG HCO3 40 H 36 H 37 H ABG O2 Saturation 78 L 101 H 99 H ABG Base Excess 7 H 13 H 13 H VBG pH VBG pCO2 VBG pO2 VBG Base Excess 04/05/25 04/05/25 04/05/25 01:20 04:52 13:02 ABG pH 7.52 H 7.47 H 7.30 L D ABG pCO2 47 50 H 74 H* D ABG pO2 60 L D 60 L 64 L ABG HCO3 38 H 37 H 37 H ABG O2 Saturation 94 93 89 L ABG Base Excess 13 H 11 H 7 H VBG pH VBG pCO2 VBG pO2 VBG Base Excess 04/06/25 04/07/25 04/09/25 03:55 10:54 04:42 ABG pH 7.36 7.50 H ABG pCO2 70 H 63 H ABG pO2 101 D 57 L* ABG HCO3 39 H 49 H ABG O2 Saturation 98 91 ABG Base Excess 10 H 21 H VBG pH 7.40 VBG pCO2 67 H D VBG pO2 76 H VBG Base Excess 13 H 04/09/25 04/09/25 04/09/25 06:25 13:10 22:47 ABG pH 7.52 H 7.47 H ABG pCO2 56 H 61 H ABG pO2 79 L D 62 L ABG HCO3 46 H 44 H ABG O2 Saturation 97 92 ABG Base Excess 19 H 16 H VBG pH 7.56 VBG pCO2 52 D VBG pO2 43 D VBG Base Excess 21 H 04/10/25 04/10/25 04/10/25 05:22 12:07 17:17 ABG pH 7.43 7.40 ABG pCO2 64 H 68 H ABG pO2 64 L 77 L ABG HCO3 43 H 42 H ABG O2 Saturation 92 95 ABG Base Excess 15 H 14 H VBG pH 7.55 VBG pCO2 45 VBG pO2 76 H D VBG Base Excess 15 H Quality Measures Quality Measures VTE prophylaxis Advance care planning discussed with:: patient Assessment & Plan Assessment Current Active Medications: Generic Name Dose Route Start Last Admin Trade Name Estebanq PRN Reason Stop Dose Admin Acetaminophen 650 mg 04/04/25 17:27 Acetaminophen 325 Mg Tablet PO 05/04/25 17:26 Q6H PRN Fever >100 or pain 1-3 Apixaban 5 mg 04/07/25 21:00 04/12/25 10:16 Apixaban 2.5 Mg Tablet PO 05/07/25 20:59 5 mg BID JOSELUIS Administration Aspirin 81 mg 04/05/25 09:00 04/12/25 10:16 Aspirin Ec 81 Mg Tabec PO 05/05/25 08:59 81 mg QDAY JOSELUIS Administration Atorvastatin Calcium 40 mg 04/07/25 21:00 04/11/25 21:03 Atorvastatin Calcium 20 Mg Tablet PO 05/07/25 20:59 40 mg HS JOSELUIS Administration Ciprofloxacin 250 mg 04/11/25 21:00 04/12/25 10:17 Ciprofloxacin Hcl 250 Mg Tablet PO 04/18/25 20:59 250 mg BID JOSELUIS Administration Alfuzosin Er 10 Mg 0 ea 04/11/25 13:45 04/12/25 10:23 Tablet PO 05/11/25 13:44 1 tablet QDAY JOSELUIS Administration Dextrose 25 ml 04/04/25 17:38 Dextrose 50%-Water Inj 50 Ml Syringe IV 05/04/25 17:37 Q15MIN PRN BG 50-70 responsive npo pt Dextrose 50 ml 04/04/25 17:38 Dextrose 50%-Water Inj 50 Ml Syringe IV 05/04/25 17:37 Q15MIN PRN BG <50 OR BG <70 & pt unresponsive Glucagon 1 mg 04/04/25 17:38 Glucagon Inj 1 Mg Vial IM Q15MIN PRN BG <70, and no IV access Insulin Glargine 5 unit 04/06/25 21:00 04/11/25 21:09 Insulin Glargine (Lantus) 5 Unit/0.05 Ml (Per 5 Units) SC 05/06/25 20:59 5 unit HS JOSELUIS Administration Insulin Human Lispro 0 unit 04/07/25 07:30 04/12/25 13:04 Insulin Lispro (Admelog) 1 Unit/0.01 Ml Unit SC 05/07/25 07:29 1 unit ACHS JOSELUIS Administration Protocol Ipratropium [place] 0.5 mg 04/07/25 07:45 04/12/25 14:38 Ipratropium Rt 0.5 Mg/ 2.5 Ml Nebu INH 05/07/25 07:44 0.5 mg Q8HRRT JOSELUIS Administration Levalbuterol HCl 1.25 mg 04/07/25 07:45 04/12/25 14:39 Levalbuterol Rt 1.25 Mg/0.5 Ml Nebu INH 05/07/25 07:44 1.25 mg Q8HRRT JOSELUIS Administration Metoprolol Succinate 100 mg 04/06/25 21:00 04/11/25 21:02 Metoprolol Succinate Xl 25 Mg Tabcr PO 05/06/25 20:59 100 mg HS JOSELUIS Administration Ondansetron HCl 4 mg 04/04/25 17:32 Ondansetron Inj 2 Mg/Ml Inj 2 Ml IVP 05/04/25 17:31 Q6H PRN NAUSEA OR VOMITING Protocol Pantoprazole Sodium 40 mg 04/10/25 09:00 04/12/25 10:17 Pantoprazole 40 Mg Tablet PO 05/10/25 08:59 40 mg QDAY JOSELUIS Administration Protocol Sodium Chloride 3 ml 04/04/25 17:27 Sodium Chloride Rt Zo 0.9% 3 Ml Nebu INH 05/04/25 17:26 PRN PRN SOLN Plan # Acute encephalopathy, resolved Initial presentation: rapid response for altered mental status, found difficult to awaken, unresponsive to stimuli including sternal rubs. After several attempts, he was awakened, returned to baseline. Exam showed no focal neurological deficits. He was alert and oriented x 4 but did not recall the episode. No focal neuro deficit on exam today Lactic acid: 1.5 Lipid panel: Triglycerides 87 WNL, cholesterol 77 (low), LDL 39, HDL 21 (low) TSH: 1.35 WNL DDX: TIA, metabolic (hypoxic, hypercarbic, ), infectious (PNA), seizure Plan: - FU EEG as an outpatient # Hx CVA # Right [employer]TING SUPERVISOR stenosis (90%) # Left [employer] SUPERVISOR stenosis (70%) 3 years ago, no residual deficits Home meds: ASA 81 mg daily, atorvastatin 40 mg daily MRI/MRA brain w/o: Negative for acute hemorrhage mass effect or midline shift. No acute infarct. 90% stenosis Right [employer]TING SUPER[employer]OR junction P1 P2 segments 03/15/23 MRI/MRA brain w/o : 90% plus stenosis right posterior cerebral artery junction P1 P2 segments, 70% stenosis Left FITTING SUPERVISOR P1 segment Carotid Doppler: Right internal carotid artery demonstrates 0-10% stenosis. Left internal carotid artery demonstrates 0-10% stenosis. ABCD2 score for TIA: 2 (low risk) Plan: - Continue high-intensity statin (ASCVD 33.5% risk of cardiovascular event in next 10 years) - Continue home ASA 81 mg #Atrial fibrillation Home med: Eliquis 2.5 mg daily Increased dose to Eliquis 5 mg daily [id number]: 6 (stroke risk 9.7% per year in >90,000 patients, 13.6% risk of stroke/TIA/systemic embolism) HAS-BLED: 3 (3.7-5.8% risk of major bleed on anticoagulation) Plan: - Management per primary, cardiology - Eliquis 5 mg daily, Metoprolol XL 100 mg daily # Type 2 Diabetes Mellitus A1C 6.9 Plan: - Management per primary #COPD on 3 L home O2 at night #MOUNIKA/OHS # Acute on chronic hypoxic hypercarbic respiratory failure, resolved # Pneumonia 3L home O2 at night with nasal cannula Cocci negative DDX: CAP vs aspiration PNA Plan: - Management per primary # Hematuria UA 3+ blood, RBC 3954 On ASA, Eliquis Plan: - Management per primary # , improving Baseline Cr 1.1. BUN: 29 Cr: 1.4 BUN/Cr 21 UA: 1+ protein, 3+ blood, RBC 3954, +LE, WBC 426, + yeast DDX: hypovolemia 2/2 diuresis Plan: - Management per primary # New-onset HFpEF TTE: LVEF 65% Plan: - Management per primary # Hepatomegaly # Hyperbilirubinemia, direct and indirect CT showed hepatomegaly. Liver ultrasound showed borderline thickened gallbladder, again hepatomegaly, fatty infiltrate of the liver, no focal liver lesion. LFTs overall WNL Total bili elevated, now downtrending Denies abdominal pain Hep B/C non-reactive Plan: - Management per primary Plan discussed with Dr. Lobo Yost, PGY1 Attending Provider Attestation/Addendum Patient was seen and examined at the bedside and I agreed with resident's findings, assessment and plan of care. Patient has not had any episodes after admission. The patient is back to baseline. Continue with the current management.
--- NOTE | 2025-04-12 17:59 | ESPR_ITS ---
Documentation for date of: 04/12/25 Subjective Subjective Interval history: Patient seen and examined at the bedside this morning. He seemed tired and was sleeping this morning. He reported doing well. Confusion has improved. He denied any SOB, chest pain, dizziness, headache, abdominal pain, admitted mild orthopnea but denied PND, or palpitations. Reported drinking,and total urine output has been 2.5L in last 24 hours. Mild improvement in creatinine, and improvement in urine output suggestive of resolving possible ATN. cr 3.6 to 3.1 Negative by ~ 9L since admission Hold off on lasix due to concern regarding mild 2/2 possible ATN and contraction alkalosis, has been improving, and creatinine trended down to 2.2. Urine has been more clear than yesterday. Recommend to start physical therapy for the patient and evaluate his oxygen needs if he needs oxygen via nasal cannula. Presently, patient needs 2 to 3 L oxygen via nasal cannula only at night. Recommend to keep saturation between 88 to 92%. Strict ins and outs, fluid restriction was discontinued. Keep magnesium and potassium greater than 2 and 4 respectively all the time TTE was significant for diastolic dysfunction, but unable to grade because of atrial fibrillation, LVEF 60 to 65%. Recommended to further evaluate urine protein level, as it was 2+. Aspirin 81 Mg daily, Eliquis 5 Mg twice daily, metoprolol succinate 100 Mg daily and atorvastatin 40 Mg daily at night to maintain LDL level less than 55 in the setting of past medical history of hypertension, diabetes mellitus and stroke. Atorvastatin 40 Mg daily at night. Metoprolol succinate 100 Mg daily. During discharge, patient should be placed on 20 mg Lasix daily, starting after 3 days of discharge, and follow-up with dental equipment mechanic Dr. Toney after 1 week of discharge. Exam Vital Signs Temp Pulse Resp BP Pulse Ox O2 Del Method O2 Flow Rate 96.9 F 97 16 138/94 H 95 CPAP 4 04/12/25 16:00 04/12/25 16:04/12/25 16:04/12/25 16:04/12/25 16:04/12/25 16:04/12/25 14:41 FiO2 40 04/12/25 08:00 Narrative Exam General: Obese, cooperative gentleman, no acute distress, A & O x3 HEENT: Moist mucous membranes, oropharynx clear Neck: Supple, No masses, No JVD CVS: Irregularly irregular rate and rhythm, No murmurs, rubs or gallops Lungs: Clear lung sounds, no wheeze or crackles, no rhonchi Abd: Mildly distended/ NT, +BS, unable to appreciate any organomegaly Ext: No peripheral edema, palpable peripheral pulses Skin: Darkening of bilateral lower legs Psych: Appropriate mood and affect Objective Labs 04/12/25 04:40 04/12/25 04:40 Labs: Laboratory Results - last 24 hr 04/12/25 04:40 WBC 8.5 RBC 5.39 Hgb 14.5 Hct 48.9 MCV 91 MCH 26.9 MCHC 29.7 L RDW Std Deviation 53.0 H Plt Count 163 Neut % (Auto) 76 Lymph % (Auto) 11 [place] % (Auto) 9 Eos % (Auto) 3 Baso % (Auto) 1 Neut # (Auto) 6.5 Lymph # (Auto) 0.9 L [place] # (Auto) 0.8 Eos # (Auto) 0.3 Baso # (Auto) 0.0 Immature Gran # (Auto) 0.03 H Absolute Nucleated RBC 0.00 Immature Gran % 0 Nucleated RBC % 0 Sodium 138 Potassium 3.6 D Chloride 96 L Carbon Dioxide 34.1 H Anion Gap 8 BUN 47 H Creatinine 2.2 H D Estim Creat Clear Calc 34.6 L eGFR 30 L BUN/Creatinine Ratio 21 H Glucose 163 H Calculated Osmolality 291 Calcium 8.1 L Corrected Calcium 8.7 Phosphorus 4.0 Magnesium 2.4 Total Bilirubin 1.2 D AST 21 ALT 12 Alkaline Phosphatase 77 D Total Protein 5.7 Albumin 3.3 L Globulin 2.4 Albumin/Globulin Ratio 1.4 ABG Interpretation ABG results: 04/04/25 04/04/25 04/04/25 13:42 17:07 18:33 ABG pH 7.14 L* 7.20 L ABG pCO2 107 H* 111 H* ABG pO2 85 78 L ABG HCO3 36 H 39 H ABG O2 Saturation 94 92 ABG Base Excess 4 H 6 H VBG pH 7.48 VBG pCO2 50 VBG pO2 82 H VBG Base Excess 11 H 04/04/25 04/04/25 04/04/25 19:35 22:40 23:52 ABG pH 7.16 L* 7.59 H D 7.53 H ABG pCO2 113 H* 37 D 45 ABG pO2 53 L* D 194 H D 87 D ABG HCO3 40 H 36 H 37 H ABG O2 Saturation 78 L 101 H 99 H ABG Base Excess 7 H 13 H 13 H VBG pH VBG pCO2 VBG pO2 VBG Base Excess 04/05/25 04/05/25 04/05/25 01:20 04:52 13:02 ABG pH 7.52 H 7.47 H 7.30 L D ABG pCO2 47 50 H 74 H* D ABG pO2 60 L D 60 L 64 L ABG HCO3 38 H 37 H 37 H ABG O2 Saturation 94 93 89 L ABG Base Excess 13 H 11 H 7 H VBG pH VBG pCO2 VBG pO2 VBG Base Excess 04/06/25 04/07/25 04/09/25 03:55 10:54 04:42 ABG pH 7.36 7.50 H ABG pCO2 70 H 63 H ABG pO2 101 D 57 L* ABG HCO3 39 H 49 H ABG O2 Saturation 98 91 ABG Base Excess 10 H 21 H VBG pH 7.40 VBG pCO2 67 H D VBG pO2 76 H VBG Base Excess 13 H 04/09/25 04/09/25 04/09/25 06:25 13:10 22:47 ABG pH 7.52 H 7.47 H ABG pCO2 56 H 61 H ABG pO2 79 L D 62 L ABG HCO3 46 H 44 H ABG O2 Saturation 97 92 ABG Base Excess 19 H 16 H VBG pH 7.56 VBG pCO2 52 D VBG pO2 43 D VBG Base Excess 21 H 04/10/25 04/10/25 04/10/25 05:22 12:07 17:17 ABG pH 7.43 7.40 ABG pCO2 64 H 68 H ABG pO2 64 L 77 L ABG HCO3 43 H 42 H ABG O2 Saturation 92 95 ABG Base Excess 15 H 14 H VBG pH 7.55 VBG pCO2 45 VBG pO2 76 H D VBG Base Excess 15 H Quality Measures Quality Measures VTE prophylaxis Advance care planning discussed with:: patient and sibling Assessment & Plan Assessment Current Active Medications: Generic Name Dose Route Start Last Admin Trade Name Freq PRN Reason Stop Dose Admin Acetaminophen 650 mg 04/04/25 17:27 Acetaminophen 325 Mg Tablet PO 05/04/25 17:26 Q6H PRN Fever >100 or pain 1-3 Apixaban 5 mg 04/07/25 21:00 04/12/25 10:16 Apixaban 2.5 Mg Tablet PO 05/07/25 20:59 5 mg BID JOSELUIS Administration Aspirin 81 mg 04/05/25 09:00 04/12/25 10:16 Aspirin Ec 81 Mg Tabec PO 05/05/25 08:59 81 mg QDAY JOSELUIS Administration Atorvastatin Calcium 40 mg 04/07/25 21:00 04/11/25 21:03 Atorvastatin Calcium 20 Mg Tablet PO 05/07/25 20:59 40 mg HS JOSELUIS Administration Ciprofloxacin 250 mg 04/11/25 21:00 04/12/25 10:17 Ciprofloxacin Hcl 250 Mg Tablet PO 04/18/25 20:59 250 mg BID JOSELUIS Administration Alfuzosin Er 10 Mg 0 ea 04/11/25 13:45 04/12/25 10:23 Tablet PO 05/11/25 13:44 1 tablet QDAY JOSELUIS Administration Dextrose 25 ml 04/04/25 17:38 Dextrose 50%-Water Inj 50 Ml Syringe IV 05/04/25 17:37 Q15MIN PRN BG 50-70 responsive npo pt Dextrose 50 ml 04/04/25 17:38 Dextrose 50%-Water Inj 50 Ml Syringe IV 05/04/25 17:37 Q15MIN PRN BG <50 OR BG <70 & pt unresponsive Glucagon 1 mg 04/04/25 17:38 Glucagon Inj 1 Mg Vial IM Q15MIN PRN BG <70, and no IV access Insulin Glargine 5 unit 04/06/25 21:00 04/11/25 21:09 Insulin Glargine (Lantus) 5 Unit/0.05 Ml (Per 5 Units) SC 05/06/25 20:59 5 unit HS JOSELUIS Administration Insulin Human Lispro 0 unit 04/07/25 07:30 04/12/25 13:04 Insulin Lispro (Admelog) 1 Unit/0.01 Ml Unit SC 05/07/25 07:29 1 unit ACHS JOSELUIS Administration Protocol Ipratropium [place] 0.5 mg 04/07/25 07:45 04/12/25 14:38 Ipratropium Rt 0.5 Mg/ 2.5 Ml Nebu INH 05/07/25 07:44 0.5 mg Q8HRRT JOSELUIS Administration Levalbuterol HCl 1.25 mg 04/07/25 07:45 04/12/25 14:39 Levalbuterol Rt 1.25 Mg/0.5 Ml Nebu INH 05/07/25 07:44 1.25 mg Q8HRRT JOSELUIS Administration Metoprolol Succinate 100 mg 04/06/25 21:00 04/11/25 21:02 Metoprolol Succinate Xl 25 Mg Tabcr PO 05/06/25 20:59 100 mg HS JOSELUIS Administration Ondansetron HCl 4 mg 04/04/25 17:32 Ondansetron Inj 2 Mg/Ml Inj 2 Ml IVP 05/04/25 17:31 Q6H PRN NAUSEA OR VOMITING Protocol Pantoprazole Sodium 40 mg 04/10/25 09:00 04/12/25 10:17 Pantoprazole 40 Mg Tablet PO 05/10/25 08:59 40 mg QDAY JOSELUIS Administration Protocol Sodium Chloride 3 ml 04/04/25 17:27 Sodium Chloride Rt Zo 0.9% 3 Ml Nebu INH 05/04/25 17:26 PRN PRN SOLN Plan The patient is a 74-year-old male with past medical history significant for hypertension, possible CAD, chronic A-fib, type 2 diabetes mellitus, MOUNIKA and acute CVA in 2019 presented to ED with chief complaint of worsening SOB for the past couple of months is currently being managed for acute on chronic hypoxic respiratory failure. Cardiology consultation was done for further management of possible new onset CHF exacerbation in the setting of longstanding atrial fibrillation. # 2/2 #Possible ATN Improving The patient presented initially with volume overload in the setting of HFpEF exacerbation, and was diuresed about 9 L since admission. On 04/10/2025, the patient's creatinine was 1.4, and repeat creatinine after 1 L of bolus fluid was 1.7, and this morning it was 3.0, and repeat creatinine was 3.6. Urine output was less than 400 cc in 24 hours. On 04/11/2025, the patient had about 2.5 L of urine output, with mild improvement in creatinine to 3.1. On 04/12/2025, the patient has about 875 cc of urine output, and creatinine has improved to 2.2. - Patient started on IV normal saline 80 cc/h - Nephrology consultation done - Avoid nephrotoxic drugs - Renally dose medications - Daily a.m. labs were renal panel #Acute on chronic hypoxic respiratory failure 2/2 S/P extubation #New onset diastolic CHF exacerbation, in the setting of #Chronic atrial fibrillation #Aspiration pneumonia, resolved #MOUNIKA Patient presented with chief complaint of worsening of SOB for past couple of months, visited PCP for 2 times, was given some medications that did not help at all. The patient has history of longstanding atrial fibrillation diagnosed about 5 years ago, but patient is unaware of the situation. Physical exam is significant for generalized anasarca. Liver enzymes WNL, though suspicious for cirrhosis as there is irregular liver counter, but synthetic and detoxification function of liver is intact, suggestive of more likely acute new onset CHF exacerbation. TSH 1.35 [id number] score of 6 - Diuresed well - Hold diuretics - Metoprolol succinate 100 Mg daily at night for rate control - Maintain potassium and magnesium greater than 4 and greater than 2 all the time - Strict ins and out, fluid restriction of 2000 cc daily - Low-sodium diet - Patient education regarding CHF and atrial fibrillation - CPAP/BiPAP at night, as needed at daytime - Telemetry monitoring - Eliquis 5 Mg twice daily - Recommend to keep saturation between 88 to 92%. Recommend to start physical therapy for the patient and evaluate his oxygen needs if he needs oxygen via nasal cannula. Currently, back to baseline. Net Negative by ~ 9L since admission During discharge, the patient should be started on Lasix 20 mg daily, but after 3 days of discharge. Recommended to follow-up with dental equipment mechanic Dr. toney within 1 week of discharge. #Past medical history of acute CVA in 2019 #Hypertension #Hyperlipidemia #Possible CAD LDL 73 Blood pressure soft at this time -Aspirin 81 Mg daily -Lipitor 40 Mg daily at night, to maintain LDL level less than 55 in the setting of hypertension, diabetes mellitus type 2 and past medical history of CVA -Antihypertensive will be adjusted given the patient's heart rate and blood pressure, currently started on metoprolol succinate 100 Mg daily at night #DM type II, A1c 6.9 #Rule out cirrhosis #Proteinuria, to be further evaluated Rest of the management deferred to primary hospitalist team. Thank you for consulting cardiology team. We appreciate the opportunity to participate in this patient's care. Cardiology team will continue to follow-up on this patient care. The patient's management plan was discussed with my attending physician MD sEcobar Torres MD, PGY3 Attending Provider Attestation/Addendum I have personally seen and examined the patient separately on the above date of service and discussed the plan of care with the resident. I reviewed the resident Dr. Escobar Francis consultation progress note and agree with the resident findings and plan in the note above and have also edited the documentation to reflect my findings and plan. Luis Toney M.D. Interventional Cardiology
[2025-04-12] MEDS: INSULIN GLARGINE (Lantus) 5 UNIT/0.05 ML (PER 5 UNITS) SC (20:50)
[2025-04-12] MEDS: METOPROLOL SUCCINATE XL 25 MG TABCR 100 MG PO (20:52)
[2025-04-12] MEDS: ATORVASTATIN CALCIUM 20 MG TABLET 40 MG PO (20:52)
[2025-04-13] VITALS (10 sets, daily range): BP systolic 138–162; BP diastolic 76–93; PULSE 67–106; RESP 12–25; TEMP 36.2–37.1; O2SAT 92–99; BMI 35.2; BMI 13.0
[2025-04-13 06:32] LABS: Basophils # (Auto) 0.0 Thou/mm3 (0.0-0.2); Basophils % (Auto) 0 % (0-2.5); Eosinophils # (Auto) 0.2 Thou/mm3 (0.0-0.5); Eosinophils % (Auto) 3 % (0-10); Hematocrit 45.7 % (41.0-53.0); Hemoglobin 13.5 g/dL (13.5-16.0); Immature Granulocytes Auto 0.03 Thou/mm3 (0.00-0.00); Lymphocytes # (Auto) 0.8 Thou/mm3 (1.0-4.8); Lymphocytes % (Auto) 9 % (10-50); Mean Corpuscular HGB Conc 29.5 g/dl (31.0-37.0); Mean Corpuscular Hemoglobin 26.8 pg (25.0-35.0); Mean Corpuscular Volume 91 fL (80-100); Monocytes # (Auto) 0.9 Thou/mm3 (0.0-0.8); Monocytes % (Auto) 10 % (0-12); Neutrophils # (Auto) 6.4 Thou/mm3 (1.8-7.7); Neutrophils % (Auto) 77 % (37-80); Nucleated Red Blood Cell # 0.00 Thou/mm3 (0.00-0.00); Nucleated Red Blood Cell % 0 /100 WBC (0); Platelet Count 182 Thou/mm3 (140-440); RDW Standard Deviation 51.8 fL (35.1-43.9); Red Blood Count 5.04 Miln/mm3 (4.50-5.90); White Blood Count 8.3 Thou/mm3 (3.8-10.6)
[2025-04-13] MEDS: IPRATROPIUM RT 0.5 MG/ 2.5 ML NEBU INH ×3 (06:54→22:05)
[2025-04-13] MEDS: LEVALBUTEROL RT 1.25 MG/0.5 ML NEBU INH ×3 (06:55→22:05)
[2025-04-13 07:14] LABS: Alanine Aminotransferase 20 U/L (10-49); Albumin, Serum 3.4 gm/dL (3.4-4.8); Albumin/Globulin Ratio 1.4 (1.2-2.2); Alkaline Phosphatase 74 U/L (46-116); Anion Gap 10 (7-16); Aspartate Amino Transferase 24 U/L (0-34); BUN/Creatinine Ratio 25 Ratio (12-20); Bilirubin,Total 1.5 mg/dL (0.3-1.2); Blood Urea Nitrogen 43 mg/dL (9-23); Calcium 8.2 mg/dL (8.3-10.6); Calcium (Corrected) 8.7 mg/dL (8.5-10.1); Carbon Dioxide 34.5 mMol/L (20.0-31.0); Chloride 100 mMol/L (98-107); Creatinine (Component) 1.7 mg/dL (0.6-1.3); Estimated Creatinine Clearance 44.7 mL/min (>60); Globulin 2.5 gm/dL (2.3-3.5); Glucose 159 mg/dL (74-106); Magnesium 2.2 mg/dL (1.6-2.6); Osmolality,Calculated 300 (275-295); Phosphorous 2.4 mg/dL (2.4-5.1); Potassium 3.8 mMol/L (3.4-5.1); Sodium 144 mMol/L (136-145); Total Protein 5.9 gm/dL (5.7-8.2); eGFR 42 See Note
--- NOTE | 2025-04-13 07:34 | ESPR_ITS ---
Documentation for date of: 04/13/25 Subjective Subjective Interval history: Patient examined at bedside. Wearing oxy mask, reports no new symptoms. Exam Vital Signs Temp Pulse Resp BP Pulse Ox O2 Del Method O2 Flow Rate 98.8 F 86 18 143/93 H 95 Nasal Cannula 3 04/13/25 04:00 04/13/25 06:58 04/13/25 06:58 04/13/25 04:00 04/13/25 06:58 04/13/25 04:00 04/13/25 06:58 FiO2 40 04/13/25 04:00 Narrative Exam General: No acute distress, well nourished Eye: PERRL, EOMI, normal conjunctiva, no scleral icterus HENT: Normocephalic, atraumatic, hearing intact to conversation at normal volume, moist oral mucosa Neck: Supple, non-tender, no JVD, no lymphadenopathy Lungs: Non-labored respirations, symmetric chest rise Heart: Peripheral pulses intact bilaterally Abdomen: Soft, non-tender, non-distended Musculoskeletal: Normal range of motion and strength Skin: Skin is warm, dry, b/l LE venous stasis dermatitis Psychiatric: Cooperative, appropriate mood and affect Neurologic: Mental status: Orientation: Oriented to person, place, time, and situation Communication: Patient is cooperative and can follow simple instructions Language: Speech fluent, normal rate and volume, comprehension intact Cranial nerves: CN II: Visual [place] intact CN III: Pupils equal, round, and reactive to light CN III, IV, : No gaze deviation, no nystagmus Horizontal pursuit: intact Vertical pursuit: intact Ptosis: none CN V: Facial sensation to light touch intact bilaterally at the forehead, cheeks, and jaw line CN VII: Face symmetric, no facial droop appreciated CN VIII: Able to hear and respond to conversation at normal volume, intact to finger rub CN IX, X: Palate elevation symmetric, uvula midline CN XI: Head turn and shoulder shrug strong, symmetric bilaterally CN XII: Normal tongue protrusion without deviation, no fasciculations Motor: Normal bulk and tone No atrophy No abnormal movements or fasciculations Muscle strength: Shoulder abduction: R 5/5 L 5/5 Elbow flexion: R 5/5 L 5/5 Elbow extension: R 5/5 L 5/5 Hip flexion: R 5/5 L 5/5 Hip extension: R 5/5 L 5/5 Knee flexion: R 5/5 L 5/5 Knee extension: R 5/5 L 5/5 Sensory: RUE: Light touch intact LUE: Light touch intact RLE: Light touch intact LLE: Light touch intact Reflexes: Biceps (C5-6): R 2+ L 2+ Brachioradialis (C5-6): R 2+ L 2+ Triceps (C7-8): R 2+ L 2+ Patellae (L3-4): R 2+ L 2+ Achilles (S1-2):R 2+ L 2+ Cerebellum: RUE: No dysmetria (finger to nose) LUE: No dysmetria (finger to nose) Objective Labs 04/14/25 05:40 04/14/25 05:40 Labs: Laboratory Results - last 24 hr 04/13/25 05:50 WBC 8.3 RBC 5.04 Hgb 13.5 Hct 45.7 MCV 91 MCH 26.8 MCHC 29.5 L RDW Std Deviation 51.8 H Plt Count 182 Neut % (Auto) 77 Lymph % (Auto) 9 L [place] % (Auto) 10 Eos % (Auto) 3 Baso % (Auto) 0 Neut # (Auto) 6.4 Lymph # (Auto) 0.8 L [place] # (Auto) 0.9 H Eos # (Auto) 0.2 Baso # (Auto) 0.0 Immature Gran # (Auto) 0.03 H Absolute Nucleated RBC 0.00 Immature Gran % 0 Nucleated RBC % 0 Sodium 144 Potassium 3.8 Chloride 100 Carbon Dioxide 34.5 H Anion Gap 10 BUN 43 H Creatinine 1.7 H D Estim Creat Clear Calc 44.7 L eGFR 42 L BUN/Creatinine Ratio 25 H Glucose 159 H Calculated Osmolality 300 H Calcium 8.2 L Corrected Calcium 8.7 Phosphorus 2.4 Magnesium 2.2 Total Bilirubin 1.5 H AST 24 ALT 20 Alkaline Phosphatase 74 Total Protein 5.9 Albumin 3.4 Globulin 2.5 Albumin/Globulin Ratio 1.4 ABG Interpretation ABG results: 04/04/25 04/04/25 04/04/25 13:42 17:07 18:33 ABG pH 7.14 L* 7.20 L ABG pCO2 107 H* 111 H* ABG pO2 85 78 L ABG HCO3 36 H 39 H ABG O2 Saturation 94 92 ABG Base Excess 4 H 6 H VBG pH 7.48 VBG pCO2 50 VBG pO2 82 H VBG Base Excess 11 H 04/04/25 04/04/25 04/04/25 19:35 22:40 23:52 ABG pH 7.16 L* 7.59 H D 7.53 H ABG pCO2 113 H* 37 D 45 ABG pO2 53 L* D 194 H D 87 D ABG HCO3 40 H 36 H 37 H ABG O2 Saturation 78 L 101 H 99 H ABG Base Excess 7 H 13 H 13 H VBG pH VBG pCO2 VBG pO2 VBG Base Excess 04/05/25 04/05/25 04/05/25 01:20 04:52 13:02 ABG pH 7.52 H 7.47 H 7.30 L D ABG pCO2 47 50 H 74 H* D ABG pO2 60 L D 60 L 64 L ABG HCO3 38 H 37 H 37 H ABG O2 Saturation 94 93 89 L ABG Base Excess 13 H 11 H 7 H VBG pH VBG pCO2 VBG pO2 VBG Base Excess 04/06/25 04/07/25 04/09/25 03:55 10:54 04:42 ABG pH 7.36 7.50 H ABG pCO2 70 H 63 H ABG pO2 101 D 57 L* ABG HCO3 39 H 49 H ABG O2 Saturation 98 91 ABG Base Excess 10 H 21 H VBG pH 7.40 VBG pCO2 67 H D VBG pO2 76 H VBG Base Excess 13 H 04/09/25 04/09/25 04/09/25 06:25 13:10 22:47 ABG pH 7.52 H 7.47 H ABG pCO2 56 H 61 H ABG pO2 79 L D 62 L ABG HCO3 46 H 44 H ABG O2 Saturation 97 92 ABG Base Excess 19 H 16 H VBG pH 7.56 VBG pCO2 52 D VBG pO2 43 D VBG Base Excess 21 H 04/10/25 04/10/25 04/10/25 05:22 12:07 17:17 ABG pH 7.43 7.40 ABG pCO2 64 H 68 H ABG pO2 64 L 77 L ABG HCO3 43 H 42 H ABG O2 Saturation 92 95 ABG Base Excess 15 H 14 H VBG pH 7.55 VBG pCO2 45 VBG pO2 76 H D VBG Base Excess 15 H Quality Measures Quality Measures VTE prophylaxis Advance care planning discussed with:: patient Assessment & Plan Assessment Current Active Medications: Generic Name Dose Route Start Last Admin Trade Name Vamsi PRN Reason Stop Dose Admin Acetaminophen 650 mg 04/04/25 17:27 Acetaminophen 325 Mg Tablet PO 05/04/25 17:26 Q6H PRN Fever >100 or pain 1-3 Apixaban 5 mg 04/07/25 21:00 04/12/25 20:52 Apixaban 2.5 Mg Tablet PO 05/07/25 20:59 5 mg BID JOSELUIS Administration Aspirin 81 mg 04/05/25 09:00 04/12/25 10:16 Aspirin Ec 81 Mg Tabec PO 05/05/25 08:59 81 mg QDAY JOSELUIS Administration Atorvastatin Calcium 40 mg 04/07/25 21:00 04/12/25 20:52 Atorvastatin Calcium 20 Mg Tablet PO 05/07/25 20:59 40 mg HS JOSELUIS Administration Ciprofloxacin 250 mg 04/11/25 21:00 04/12/25 20:52 Ciprofloxacin Hcl 250 Mg Tablet PO 04/18/25 20:59 250 mg BID JOSELUIS Administration Alfuzosin Er 10 Mg 0 ea 04/11/25 13:45 04/12/25 10:23 Tablet PO 05/11/25 13:44 1 tablet QDAY JOSELUIS Administration Dextrose 25 ml 04/04/25 17:38 Dextrose 50%-Water Inj 50 Ml Syringe IV 05/04/25 17:37 Q15MIN PRN BG 50-70 responsive npo pt Dextrose 50 ml 04/04/25 17:38 Dextrose 50%-Water Inj 50 Ml Syringe IV 05/04/25 17:37 Q15MIN PRN BG <50 OR BG <70 & pt unresponsive Glucagon 1 mg 04/04/25 17:38 Glucagon Inj 1 Mg Vial IM Q15MIN PRN BG <70, and no IV access Insulin Glargine 5 unit 04/06/25 21:00 04/12/25 20:50 Insulin Glargine (Lantus) 5 Unit/0.05 Ml (Per 5 Units) SC 05/06/25 20:59 5 unit HS JOSELUIS Administration Insulin Human Lispro 0 unit 04/07/25 07:30 04/12/25 20:51 Insulin Lispro (Admelog) 1 Unit/0.01 Ml Unit SC 05/07/25 07:29 1 unit ACHS JOSELUIS Administration Protocol Ipratropium [place] 0.5 mg 04/07/25 07:45 04/13/25 06:54 Ipratropium Rt 0.5 Mg/ 2.5 Ml Nebu INH 05/07/25 07:44 0.5 mg Q8HRRT JOSELUIS Administration Levalbuterol HCl 1.25 mg 04/07/25 07:45 04/13/25 06:55 Levalbuterol Rt 1.25 Mg/0.5 Ml Nebu INH 05/07/25 07:44 1.25 mg Q8HRRT JOSELUIS Administration Metoprolol Succinate 100 mg 04/06/25 21:00 04/12/25 20:52 Metoprolol Succinate Xl 25 Mg Tabcr PO 05/06/25 20:59 100 mg HS JOSEULIS Administration Ondansetron HCl 4 mg 04/04/25 17:32 Ondansetron Inj 2 Mg/Ml Inj 2 Ml IVP 05/04/25 17:31 Q6H PRN NAUSEA OR VOMITING Protocol Pantoprazole Sodium 40 mg 04/10/25 09:00 04/12/25 10:17 Pantoprazole 40 Mg Tablet PO 05/10/25 08:59 40 mg QDAY JOSELUIS Administration Protocol Sodium Chloride 3 ml 04/04/25 17:27 Sodium Chloride Rt Zo 0.9% 3 Ml Nebu INH 05/04/25 17:26 PRN PRN SOLN Plan # Acute encephalopathy, resolved Initial presentation: rapid response for altered mental status, found difficult to awaken, unresponsive to stimuli including sternal rubs. After several attempts, he was awakened, returned to baseline. Exam showed no focal neurological deficits. He was alert and oriented x 4 but did not recall the episode. 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 No acute infarct. 90% stenosis Right [employer]NAL [employer]IST junction P1 P2 segments 03/15/23 MRI/MRA brain w/o : 90% plus stenosis right posterior cerebral artery junction P1 P2 segments, 70% stenosis Left INTERNAL [employer]IST P1 segment Carotid Doppler: Right internal carotid artery demonstrates 0-10% stenosis. Left internal carotid artery demonstrates 0-10% stenosis. ABCD2 score for TIA: 2 (low risk) Plan: - Continue high-intensity statin (ASCVD 33.5% risk of cardiovascular event in next 10 years) - Continue home ASA 81 mg #Atrial fibrillation Home med: Eliquis 2.5 mg daily Increased dose to Eliquis 5 mg daily [id number]: 6 (stroke risk 9.7% per year in >90,000 patients, 13.6% risk of stroke/TIA/systemic embolism) HAS-BLED: 3 (3.7-5.8% risk of major bleed on anticoagulation) Plan: - Management per primary, cardiology - Eliquis 5 mg daily, Metoprolol XL 100 mg daily # Type 2 Diabetes Mellitus A1C 6.9 Plan: - Management per primary #COPD on 3 L home O2 at night #MOUNIKA/OHS # Acute on chronic hypoxic hypercarbic respiratory failure, resolved # Pneumonia 3L home O2 at night with nasal cannula Cocci negative DDX: CAP vs aspiration PNA Plan: - Management per primary # Hematuria UA 3+ blood, RBC 3954 On ASA, Eliquis Plan: - Management per primary # , improving Baseline Cr 1.1. BUN: 29 Cr: 1.4 BUN/Cr 21 UA: 1+ protein, 3+ blood, RBC 3954, +LE, WBC 426, + yeast DDX: hypovolemia 2/2 diuresis Plan: - Management per primary # New-onset HFpEF TTE: LVEF 65% Plan: - Management per primary # Hepatomegaly # Hyperbilirubinemia, direct and indirect CT showed hepatomegaly. Liver ultrasound showed borderline thickened gallbladder, again hepatomegaly, fatty infiltrate of the liver, no focal liver lesion. LFTs overall WNL Total bili elevated, now downtrending Denies abdominal pain Hep B/C non-reactive Plan: - Management per primary # Prostatomegaly # Bilateral hydronephrosis, mild CT abdomen/pelvis W/O: Massive prostatomegaly causing mild bilateral hydronephrosis and early wall thickening in the urinary bladder Plan - Management per primary Plan discussed with Dr. Lobo Yost, PGY1 Attending Provider Attestation/Addendum I personally have seen and examined the patient at the bedside and I agree with the resident's findings assessment and plan of care. Patient has not had any more episodes of syncope after he started using the BiPAP at night. As he has hematuria, he is getting irrigation through the [place] catheter. Patient is waiting for placement as per family's request. Follow-up with EEG as it becomes available or as an outpatient.
--- NOTE | 2025-04-13 08:21 | ESPR_ITS ---
Documentation for date of: 04/13/25 Subjective Subjective Interval history: No acute overnight events. Reports feeling well again this morning. Physical therapy recommended outpatient rehab. Denies fever, chills, headaches, chest pain, sob, cough, GI or urinary symptoms. Exam Vital Signs Temp Pulse Resp BP Pulse Ox O2 Del Method O2 Flow Rate 97.3 F 72 17 143/93 H 96 Nasal Cannula 3 04/13/25 08:00 04/13/25 08:00 04/13/25 08:00 04/13/25 08:00 04/13/25 08:00 04/13/25 08:00 04/13/25 08:00 FiO2 40 04/13/25 04:00 Narrative Exam Gen: alert and oriented x3, NAD, vitals reviewed Head/Neck: NCAT, no gross LAD ENT: EOMI grossly, anicteric sclerae, mmm Resp: Lungs CTAB, normal respiratory effort, symmetric chest rise CV: regular rhythm, regular rate; extremities well perfused GI: distended; no tenderness, normal bowel sounds present Ext: no clubbing, cyanosis. Trace LE edema bilaterally Skin: chronic venous stasis, no new rash or lesions on visual exam Neuro/MSK: moves all extremities Psych: normal mood; appropriate affect Objective Labs 04/13/25 05:50 04/13/25 05:50 Labs: Laboratory Results - last 24 hr 04/13/25 05:50 WBC 8.3 RBC 5.04 Hgb 13.5 Hct 45.7 MCV 91 MCH 26.8 MCHC 29.5 L RDW Std Deviation 51.8 H Plt Count 182 Neut % (Auto) 77 Lymph % (Auto) 9 L [place] % (Auto) 10 Eos % (Auto) 3 Baso % (Auto) 0 Neut # (Auto) 6.4 Lymph # (Auto) 0.8 L [place] # (Auto) 0.9 H Eos # (Auto) 0.2 Baso # (Auto) 0.0 Immature Gran # (Auto) 0.03 H Absolute Nucleated RBC 0.00 Immature Gran % 0 Nucleated RBC % 0 Sodium 144 Potassium 3.8 Chloride 100 Carbon Dioxide 34.5 H Anion Gap 10 BUN 43 H Creatinine 1.7 H D Estim Creat Clear Calc 44.7 L eGFR 42 L BUN/Creatinine Ratio 25 H Glucose 159 H Calculated Osmolality 300 H Calcium 8.2 L Corrected Calcium 8.7 Phosphorus 2.4 Magnesium 2.2 Total Bilirubin 1.5 H AST 24 ALT 20 Alkaline Phosphatase 74 Total Protein 5.9 Albumin 3.4 Globulin 2.5 Albumin/Globulin Ratio 1.4 ABG Interpretation ABG results: 04/04/25 04/04/25 04/04/25 13:42 17:07 18:33 ABG pH 7.14 L* 7.20 L ABG pCO2 107 H* 111 H* ABG pO2 85 78 L ABG HCO3 36 H 39 H ABG O2 Saturation 94 92 ABG Base Excess 4 H 6 H VBG pH 7.48 VBG pCO2 50 VBG pO2 82 H VBG Base Excess 11 H 04/04/25 04/04/25 04/04/25 19:35 22:40 23:52 ABG pH 7.16 L* 7.59 H D 7.53 H ABG pCO2 113 H* 37 D 45 ABG pO2 53 L* D 194 H D 87 D ABG HCO3 40 H 36 H 37 H ABG O2 Saturation 78 L 101 H 99 H ABG Base Excess 7 H 13 H 13 H VBG pH VBG pCO2 VBG pO2 VBG Base Excess 04/05/25 04/05/25 04/05/25 01:20 04:52 13:02 ABG pH 7.52 H 7.47 H 7.30 L D ABG pCO2 47 50 H 74 H* D ABG pO2 60 L D 60 L 64 L ABG HCO3 38 H 37 H 37 H ABG O2 Saturation 94 93 89 L ABG Base Excess 13 H 11 H 7 H VBG pH VBG pCO2 VBG pO2 VBG Base Excess 04/06/25 04/07/25 04/09/25 03:55 10:54 04:42 ABG pH 7.36 7.50 H ABG pCO2 70 H 63 H ABG pO2 101 D 57 L* ABG HCO3 39 H 49 H ABG O2 Saturation 98 91 ABG Base Excess 10 H 21 H VBG pH 7.40 VBG pCO2 67 H D VBG pO2 76 H VBG Base Excess 13 H 04/09/25 04/09/25 04/09/25 06:25 13:10 22:47 ABG pH 7.52 H 7.47 H ABG pCO2 56 H 61 H ABG pO2 79 L D 62 L ABG HCO3 46 H 44 H ABG O2 Saturation 97 92 ABG Base Excess 19 H 16 H VBG pH 7.56 VBG pCO2 52 D VBG pO2 43 D VBG Base Excess 21 H 04/10/25 04/10/25 04/10/25 05:22 12:07 17:17 ABG pH 7.43 7.40 ABG pCO2 64 H 68 H ABG pO2 64 L 77 L ABG HCO3 43 H 42 H ABG O2 Saturation 92 95 ABG Base Excess 15 H 14 H VBG pH 7.55 VBG pCO2 45 VBG pO2 76 H D VBG Base Excess 15 H Quality Measures Quality Measures VTE prophylaxis Advance care planning discussed with:: patient Assessment & Plan Assessment Current Active Medications: Generic Name Dose Route Start Last Admin Trade Name Freq PRN Reason Stop Dose Admin Acetaminophen 650 mg 04/04/25 17:27 Acetaminophen 325 Mg Tablet PO 05/04/25 17:26 Q6H PRN Fever >100 or pain 1-3 Apixaban 5 mg 04/07/25 21:00 04/12/25 20:52 Apixaban 2.5 Mg Tablet PO 05/07/25 20:59 5 mg BID JOSELUIS Administration Aspirin 81 mg 04/05/25 09:00 04/12/25 10:16 Aspirin Ec 81 Mg Tabec PO 05/05/25 08:59 81 mg QDAY JOSELUIS Administration Atorvastatin Calcium 40 mg 04/07/25 21:00 04/12/25 20:52 Atorvastatin Calcium 20 Mg Tablet PO 05/07/25 20:59 40 mg HS JOSELUIS Administration Ciprofloxacin 250 mg 04/11/25 21:00 04/12/25 20:52 Ciprofloxacin Hcl 250 Mg Tablet PO 04/18/25 20:59 250 mg BID JOSELUIS Administration Alfuzosin Er 10 Mg 0 ea 04/11/25 13:45 04/12/25 10:23 Tablet PO 05/11/25 13:44 1 tablet QDAY JOSELUIS Administration Dextrose 25 ml 04/04/25 17:38 Dextrose 50%-Water Inj 50 Ml Syringe IV 05/04/25 17:37 Q15MIN PRN BG 50-70 responsive npo pt Dextrose 50 ml 04/04/25 17:38 Dextrose 50%-Water Inj 50 Ml Syringe IV 05/04/25 17:37 Q15MIN PRN BG <50 OR BG <70 & pt unresponsive Glucagon 1 mg 04/04/25 17:38 Glucagon Inj 1 Mg Vial IM Q15MIN PRN BG <70, and no IV access Insulin Glargine 5 unit 04/06/25 21:00 04/12/25 20:50 Insulin Glargine (Lantus) 5 Unit/0.05 Ml (Per 5 Units) SC 05/06/25 20:59 5 unit HS JOSELUIS Administration Insulin Human Lispro 0 unit 04/07/25 07:30 04/12/25 20:51 Insulin Lispro (Admelog) 1 Unit/0.01 Ml Unit SC 05/07/25 07:29 1 unit ACHS JOSELUIS Administration Protocol Ipratropium [place] 0.5 mg 04/07/25 07:45 04/13/25 06:54 Ipratropium Rt 0.5 Mg/ 2.5 Ml Nebu INH 05/07/25 07:44 0.5 mg Q8HRRT JOSELUIS Administration Levalbuterol HCl 1.25 mg 04/07/25 07:45 04/13/25 06:55 Levalbuterol Rt 1.25 Mg/0.5 Ml Nebu INH 05/07/25 07:44 1.25 mg Q8HRRT JOSELUIS Administration Metoprolol Succinate 100 mg 04/06/25 21:00 04/12/25 20:52 Metoprolol Succinate Xl 25 Mg Tabcr PO 05/06/25 20:59 100 mg HS JOSELUIS Administration Ondansetron HCl 4 mg 04/04/25 17:32 Ondansetron Inj 2 Mg/Ml Inj 2 Ml IVP 05/04/25 17:31 Q6H PRN NAUSEA OR VOMITING Protocol Pantoprazole Sodium 40 mg 04/10/25 09:00 04/12/25 10:17 Pantoprazole 40 Mg Tablet PO 05/10/25 08:59 40 mg QDAY JOSELUIS Administration Protocol Sodium Chloride 3 ml 04/04/25 17:27 Sodium Chloride Rt Zo 0.9% 3 Ml Nebu INH 05/04/25 17:26 PRN PRN SOLN Plan In summary: 74-year-old male with PMHx of A-fib on ELIQUIS, HTN, T2DM, MOUNIKA/OHS, chronic respiratory failure, on home 2-3 L oxygen, presented with shortness of breath. Admitted for volume overload requiring intubation and aggressive diuresis. Subsequently extubated successfully, but has worsening hypercapnic respiratory failure. Appreciate recommendations from cardiology, nephrology, and neurology teams. 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 As stated previously, a few days ago, he had a RR for acute AMS where he was found unresponsive to painful stimuli. At the time MRI was done showing 90% stenosis of the posterior right cerebral artery junction at the P1?P2 segments. This high suspicion for recurrent TIA, likely resulting in central apnea, possible leading to irregular or ataxic breathing, which in his case would explain below findings. Per family patient had stroke 3 years ago, no residual deficit, head CT unremarkable. Carotid ultrasound showed no significant stenosis bilaterally. No recurrence of episodes. ? Continue ASPIRIN and ATORVASTATIN ? Neurology recommended outpatient follow-up, vascular surgery Acute metabolic encephalopathy Acute on chronic hypercapnic respiratory failure Contraction alkalosis with appropriate respiratory compensation (improving) CHF exacerbation Likely central sleep apnea, MOUNIKA, OHS Fluid overload status (resolved) Presented with volume overload and SOB, echo showed EF 65% with diastolic dysfunction. He has been on diuresis since. With a total of 9 L fluid removed. Overall oxygen demand improved from baseline, currently on 1 L NC. Continued on BiPAP HS. However this morning she was found acutely mildly encephalopathic, likely hypercapnia. Blood gas showed contraction alkalosis, compensation respiratory acidosis. Diuresis was held, and he continued on BiPAP intermittently and HS. CO2 improving overall. However mentation still waxing and waning, now higher suspicion for TIA as stated above. ? Maintain K > 4.0 and Mg > 2.0 ? Continue METOPROLOL succinate 100 mg HS ? Holding diuresis ? Continue BiPAP HS and intermittently throughout the day ? Trilogy has been approved and available on discharge Tachycardia (resolved) A-fib, rate controlled CHADVASC2:6 HASBLED: 3 History of A-fib, admission EKG showed A-fib with HR 88. New onset tachycardia, likely 2/2 beta agonist, or reactive to volume loss. Although high risk for RVR given recurrent tachycardia. Overnight had an episode of HR 123 was resolved after METOPROLOL x 1. ? Continue METOPROLOL as above ? HOLDING ELIQUIS 5 mg BID in settings of hematuria ? Maintain K > 4.0 and Mg > 2.0 ? Pending further recommendation from cardiology HTN HLD Currently normotensive with METOPROLOL as above. ? Unable to resume home HCTZ and LOSARTAN 2/2 ? Continue home ATORVASTATIN Hematuria Asymptomatic pyuria Bilateral hydronephrosis Massive prostamegaly [place]ust[place]ante showing dark urine, UA showed dark red urine, cloudy, 3+ blood, 1+ protein, LE positive, 3954 RBCs, 426 WBC. Given acute spikes in WBC. Will treat for UTI, although he is asymptomatic. Per chart review, hematuria appears chronic. He was on bladder irrigation overnight, with persistent hematuria. We have consulted urology. ELIQUIS has been held. Hemoglobin otherwise WNL. UA negative for UTI, afebrile, no leukocytosis. Urine culture pending. CT abdomen was ordered to rule out malignancy-related pneumaturia which showed bilateral mild hydronephrosis secondary to massive enlarged prostate. ? Continue CIPROFLOXACIN (04/11 to present) ? Continue home ALFUZOSIN ? Pending urology recommendations ? Pending urine culture Prerenal azotemia (improving) Baseline CR 1.1. Has new with CR 1.4 > 1.7, likely 2/2 volume loss 2/2 diuresis. We have repleted with 1 L NS, and withheld diuresis for now. Nephrology on board, recommended no fluids or diuresis, just monitoring output and renal function. He has adequate urine output, and renal function improving overall. Urine studies suggesting prerenal azotemia, possible early kidney disease in settings of diabetes or chronic hypertension. ? Renally dose meds, avoid overdiuresis and NEPHROTOXINS ? Daily CMP Pneumonia, CAP versus aspiration Reactive leukocytosis Suspected bibasilar pneumonia on CXR from 04/04. Suspected aspiration given BiPAP use, although currently denies cough. Afebrile, leukocytosis likely reactive 2/2 STEROIDS. Repeat CXR 04/09 showed no pneumonia. Pancultures have all been negative. AZITHROMYCIN and ZOSYN were discontinued. ? Monitor closely Hepatomegaly Hyperbilirubinemia, direct Broad differential including: Gilbert syndrome, ineffective erythropoiesis, or hemolysis. CT showed hepatomegaly. Liver ultrasound showed borderline thickened gallbladder, again hepatomegaly, fatty infiltrate of the liver, no focal liver lesion. LFTs overall WNL. However, total bilirubin alternating between 1.5 and 4.5, and appears chronic. He denies abdominal pain. Low suspicion for cholangitis. Acute hepatitis panel was negative, although he is not immunized. ? Recommended outpatient GI workup for ? Recommended hepatitis B amputation series T2DM Relatively controlled, A1c 6.9 ? INSULIN sliding scale ? Accu-Cheks Electrolyte abnormalities ? Replete as needed Normocytic normochromic anemia (resolved) Hemoglobin stable. ? Daily labs Health maintenance Diet: Cardiac GI prophylaxis: PROTONIX DVT prophylaxis: SCD Antibiotics: CIPROFLOXACIN CODE STATUS: Full code Disposition: Pending urology recommendations for hematuria Case was discussed with attending physician. Vijay Bess DO PGY II This document was transcribed using voice recognition technology. Minor inaccuracies may be present. Attending Provider Attestation/Addendum I attest that I was physically present for the evaluation, physical examination, lab and imaging review of the patient with the residents. I discussed the case with the residents and agree with the findings and plans of care as documented above. At bedside today, patient states feeling well and denies any new complaints. He is alert and awake, able to answer questions and follow commands appropriately. Continues to be on aspirin and atorvastatin. Patient noted to have ongoing hematuria, he is on continuous bladder irrigation, no clots noted. Hemoglobin is stable. Urinalysis showed 3954 RBCs, 3+ blood and 426 WBCs. We will obtain follow-up UA. Abdomen/pelvis CT was obtained, which showed massive prostatomegaly causing mild bilateral hydronephrosis and early wall thickening in the urinary bladder. The Bust[place]ante catheter is in prostatic urethra. We will obtain urology consult for further evaluation. Deana Lion MD
[2025-04-13] MEDS: APIXABAN 2.5 MG TABLET 5 MG PO (08:24)
[2025-04-13] MEDS: ASPIRIN EC 81 MG TABEC PO (08:24)
[2025-04-13] MEDS: CIPROFLOXACIN HCL 250 MG TABLET PO (08:24)
[2025-04-13] MEDS: ALFUZOSIN ER 10 MG TABLET PO (08:24)
[2025-04-13] MEDS: PANTOPRAZOLE 40 MG TABLET PO (08:24)
--- NOTE | 2025-04-13 09:32 | ESPR_ITS ---
Documentation for date of: 04/13/25 Subjective Subjective Interval history: Kade Dalal is a 74-year-old male with PMHx of A-fib on ELIQUIS, HTN, T2DM, MOUNIKA/OHS, chronic respiratory failure, on home 2-3 L oxygen, admitted for volume overload requiring intubation and aggressive diuresis and SOB. Echo showed EF 65% with diastolic dysfunction. He has been on diuresis since. With a total of 9 L fluid removed. Overall oxygen demand improved from baseline, currently on 1 L NC. Continued on BiPAP HS. Patient received 500 cc NS x2 after worsening contraction alkalosis was shown on chem panel and vbg/abg. Cardiology is considering DIAMOX if CO2 remains elevated. Nephrology is consulted in for likely due to prerenal azotemia secondary to over-diuresis. 04/10/2025 Patient was seen and examined. No acute events overnight. Patient is resting in bed and does not have any complaints or concerns. Patient states that he has been using the bipap machine at night even though at home he has not been taking it as much. Patient endorses making urine yesterday, but not any today, and passing stool. Patient denies having history of being unable to make urine in the past. Patient denies fatigue, dizziness, weakness, chest pain, shortness of breath, abdominal pain, dysuria. 04/11/2025 Patient had a rapid called yesterday evening for altered mental status, was found difficult to awaken, eventually became a&o x4 after multiple sternal rubs and returning back to baseline. This morning patient was doing well, vital signs stable, no new concerns/complaints. Patient denies fever, chest pain, shortness of breath. Patient's has been making urine, 1800 ml last 24 hr. Patient's moss bag appeared very dark in color this morning, maybe from traumatic insertion, will continue to monitor; will be given more IV fluids today. 04/12/2025 No acute events overnight. Patient has been making dark urine. Patient was not on fluids overnight, had improved creatinine levels this morning. Patient this morning does not have any new complaints or concerns. Patient denies having any fever, chest pain, shortness of breath. 04/13/2025 No acute events overnight. Patient continues to make dark red urine. Patient's creatinine continues to improve (1.7 today). Patient had bladder irrigation yesterday, discontinuing today. Patient this morning does not have any new complaints or concerns. Patient denies having any fever, chest pain, shortness of breath. Exam Vital Signs Temp Pulse Resp BP Pulse Ox O2 Del Method O2 Flow Rate 97.3 F 72 17 143/93 H 96 Nasal Cannula 3 04/13/25 08:00 04/13/25 08:00 04/13/25 08:00 04/13/25 08:00 04/13/25 08:00 04/13/25 08:00 04/13/25 08:00 FiO2 40 04/13/25 04:00 Narrative Exam Gen: alert and oriented x3, NAD, vitals reviewed Head/Neck: NCAT, no gross LAD ENT: EOMI grossly, anicteric sclerae, mmm Resp: Lungs CTAB, normal respiratory effort, symmetric chest rise CV: regular rhythm, regular rate; extremities well perfused GI: distended; no tenderness, normal bowel sounds present Ext: no clubbing, cyanosis. no Lower extremity edema Skin: chronic venous stasis, no new rash or lesions on visual exam Neuro/MSK: moves all extremities Psych: normal mood; appropriate affect Objective Labs 04/15/25 04:47 04/15/25 04:47 Labs: Laboratory Results - last 24 hr 04/13/25 05:50 WBC 8.3 RBC 5.04 Hgb 13.5 Hct 45.7 MCV 91 MCH 26.8 MCHC 29.5 L RDW Std Deviation 51.8 H Plt Count 182 Neut % (Auto) 77 Lymph % (Auto) 9 L [place] % (Auto) 10 Eos % (Auto) 3 Baso % (Auto) 0 Neut # (Auto) 6.4 Lymph # (Auto) 0.8 L [place] # (Auto) 0.9 H Eos # (Auto) 0.2 Baso # (Auto) 0.0 Immature Gran # (Auto) 0.03 H Absolute Nucleated RBC 0.00 Immature Gran % 0 Nucleated RBC % 0 Sodium 144 Potassium 3.8 Chloride 100 Carbon Dioxide 34.5 H Anion Gap 10 BUN 43 H Creatinine 1.7 H D Estim Creat Clear Calc 44.7 L eGFR 42 L BUN/Creatinine Ratio 25 H Glucose 159 H Calculated Osmolality 300 H Calcium 8.2 L Corrected Calcium 8.7 Phosphorus 2.4 Magnesium 2.2 Total Bilirubin 1.5 H AST 24 ALT 20 Alkaline Phosphatase 74 Total Protein 5.9 Albumin 3.4 Globulin 2.5 Albumin/Globulin Ratio 1.4 ABG Interpretation ABG results: 04/04/25 04/04/25 04/04/25 13:42 17:07 18:33 ABG pH 7.14 L* 7.20 L ABG pCO2 107 H* 111 H* ABG pO2 85 78 L ABG HCO3 36 H 39 H ABG O2 Saturation 94 92 ABG Base Excess 4 H 6 H VBG pH 7.48 VBG pCO2 50 VBG pO2 82 H VBG Base Excess 11 H 04/04/25 04/04/25 04/04/25 19:35 22:40 23:52 ABG pH 7.16 L* 7.59 H D 7.53 H ABG pCO2 113 H* 37 D 45 ABG pO2 53 L* D 194 H D 87 D ABG HCO3 40 H 36 H 37 H ABG O2 Saturation 78 L 101 H 99 H ABG Base Excess 7 H 13 H 13 H VBG pH VBG pCO2 VBG pO2 VBG Base Excess 04/05/25 04/05/25 04/05/25 01:20 04:52 13:02 ABG pH 7.52 H 7.47 H 7.30 L D ABG pCO2 47 50 H 74 H* D ABG pO2 60 L D 60 L 64 L ABG HCO3 38 H 37 H 37 H ABG O2 Saturation 94 93 89 L ABG Base Excess 13 H 11 H 7 H VBG pH VBG pCO2 VBG pO2 VBG Base Excess 04/06/25 04/07/25 04/09/25 03:55 10:54 04:42 ABG pH 7.36 7.50 H ABG pCO2 70 H 63 H ABG pO2 101 D 57 L* ABG HCO3 39 H 49 H ABG O2 Saturation 98 91 ABG Base Excess 10 H 21 H VBG pH 7.40 VBG pCO2 67 H D VBG pO2 76 H VBG Base Excess 13 H 04/09/25 04/09/25 04/09/25 06:25 13:10 22:47 ABG pH 7.52 H 7.47 H ABG pCO2 56 H 61 H ABG pO2 79 L D 62 L ABG HCO3 46 H 44 H ABG O2 Saturation 97 92 ABG Base Excess 19 H 16 H VBG pH 7.56 VBG pCO2 52 D VBG pO2 43 D VBG Base Excess 21 H 04/10/25 04/10/25 04/10/25 05:22 12:07 17:17 ABG pH 7.43 7.40 ABG pCO2 64 H 68 H ABG pO2 64 L 77 L ABG HCO3 43 H 42 H ABG O2 Saturation 92 95 ABG Base Excess 15 H 14 H VBG pH 7.55 VBG pCO2 45 VBG pO2 76 H D VBG Base Excess 15 H Quality Measures Quality Measures VTE prophylaxis Advance care planning discussed with:: patient Assessment & Plan Assessment Current Active Medications: Generic Name Dose Route Start Last Admin Trade Name Freq PRN Reason Stop Dose Admin Acetaminophen 650 mg 04/04/25 17:27 Acetaminophen 325 Mg Tablet PO 05/04/25 17:26 Q6H PRN Fever >100 or pain 1-3 Apixaban 5 mg 04/07/25 21:00 04/13/25 08:24 Apixaban 2.5 Mg Tablet PO 05/07/25 20:59 5 mg BID JOSELUIS Administration Aspirin 81 mg 04/05/25 09:00 04/13/25 08:24 Aspirin Ec 81 Mg Tabec PO 05/05/25 08:59 81 mg QDAY JOSELUIS Administration Atorvastatin Calcium 40 mg 04/07/25 21:00 04/12/25 20:52 Atorvastatin Calcium 20 Mg Tablet PO 05/07/25 20:59 40 mg HS JOSELUIS Administration Ciprofloxacin 250 mg 04/11/25 21:00 04/13/25 08:24 Ciprofloxacin Hcl 250 Mg Tablet PO 04/18/25 20:59 250 mg BID JOSELUIS Administration Alfuzosin Er 10 Mg 0 ea 04/11/25 13:45 04/13/25 08:24 Tablet PO 05/11/25 13:44 1 tablet QDAY JOSELUIS Administration Dextrose 25 ml 04/04/25 17:38 Dextrose 50%-Water Inj 50 Ml Syringe IV 05/04/25 17:37 Q15MIN PRN BG 50-70 responsive npo pt Dextrose 50 ml 04/04/25 17:38 Dextrose 50%-Water Inj 50 Ml Syringe IV 05/04/25 17:37 Q15MIN PRN BG <50 OR BG <70 & pt unresponsive Glucagon 1 mg 04/04/25 17:38 Glucagon Inj 1 Mg Vial IM Q15MIN PRN BG <70, and no IV access Insulin Glargine 5 unit 04/06/25 21:00 04/12/25 20:50 Insulin Glargine (Lantus) 5 Unit/0.05 Ml (Per 5 Units) SC 05/06/25 20:59 5 unit HS JOSELUIS Administration Insulin Human Lispro 0 unit 04/07/25 07:30 04/13/25 08:23 Insulin Lispro (Admelog) 1 Unit/0.01 Ml Unit SC 05/07/25 07:29 Not Given ACHS JOSELUIS Protocol Ipratropium [place] 0.5 mg 04/07/25 07:45 04/13/25 06:54 Ipratropium Rt 0.5 Mg/ 2.5 Ml Nebu INH 05/07/25 07:44 0.5 mg Q8HRRT JOSELUIS Administration Levalbuterol HCl 1.25 mg 04/07/25 07:45 04/13/25 06:55 Levalbuterol Rt 1.25 Mg/0.5 Ml Nebu INH 05/07/25 07:44 1.25 mg Q8HRRT JOSELUIS Administration Metoprolol Succinate 100 mg 04/06/25 21:00 04/12/25 20:52 Metoprolol Succinate Xl 25 Mg Tabcr PO 05/06/25 20:59 100 mg HS JOSELUIS Administration Ondansetron HCl 4 mg 04/04/25 17:32 Ondansetron Inj 2 Mg/Ml Inj 2 Ml IVP 05/04/25 17:31 Q6H PRN NAUSEA OR VOMITING Protocol Pantoprazole Sodium 40 mg 04/10/25 09:00 04/13/25 08:24 Pantoprazole 40 Mg Tablet PO 05/10/25 08:59 40 mg QDAY JOSELUIS Administration Protocol Sodium Chloride 3 ml 04/04/25 17:27 Sodium Chloride Rt Zo 0.9% 3 Ml Nebu INH 05/04/25 17:26 PRN PRN SOLN Plan In summary: 74-year-old male with PMHx of A-fib on ELIQUIS, HTN, T2DM, MOUNIKA/OHS, chronic respiratory failure, on home 2-3 L oxygen, presented with shortness of breath. Admitted for volume overload requiring intubation and aggressive diuresis. Subsequently extubated successfully, but has worsening hypercapnic respiratory failure. Nephrology consulted for management of . # Acute Kidney Injury Likely ATN with Cr now improving (at 1.7 currently) vs potential obstructive etiology; Patient initially noted to have with current Cr 3.0 (over baseline ~1.0). Suspect pre-renal due to over-diuresis in context of chf exacerbation. Holding fluids due to patient's volume status appearing full. Denies dizziness, weakness. Patient UOP 900 ml last 24 hrs. Today urine in moss looked dark colored. - DC bladder irrigation - hold fluids - hold further diuresis - About 8.5 L net output for hospital stay - renally dose medications - hold nephrotoxic meds Acute metabolic encephalopathy Acute on chronic hypercapnic respiratory failure Contraction alkalosis with appropriate respiratory compensation CHF exacerbation MOUNIKA, OHS Fluid overload status (resolved) Tachycardia A-fib HTN HLD Pneumonia, CAP versus aspiration Reactive leukocytosis Hepatomegaly Hyperbilirubinemia, direct Normocytic normochromic anemia Hematuria T2DM Hx of CVA. Electrolyte abnormalities Above problems Medically managed through the primary team Thank you for allowing us to take part in the care of Mr. Dalal Plan of care discussed with attending, Dr. Jorgito Srivastava MD PGY-1 Attending Provider Attestation/Addendum Patient seen and examined with resident physician Dr. Srivastava. Note reviewed, agree with findings and recommendations. Clinically patient looks rather dehydrated. Hemoglobin 16.9. Patient seems to be sleepy when I examined him. Could not get much information. Spoke to sister. Hold off on diuretics. Give 1 L IV fluids with close monitoring of urinary output and creatinine. Plan of care discussed with Sister Wendy at bedside. 04/13/2025 patient currently seen in telemetry. Patient currently on BiPAP. Hematuria improved. DC bladder irrigation. Creatinine improved. Off diuretics. Hold off on fluids for now. Clinically looks euvolemic. Will monitor closely. Plan of care discussed with the sister at bedside
--- NOTE | 2025-04-13 11:05 | XR_ITS ---
Examination: CT abdomen and pelvis without contrast. Coronal 3-D reconstructions. Sagittal 2-D reconstructions. Date and time of exam:April 13, 2025 1307 hours INDICATIONS: Hematuria beginning 3 days ago CTDI: vol (mGy): 12.2 DLP: (mGycm): 874 Technique: Axial images of the abdomen have been obtained, 3 mm slice thickness Intravenous contrast material has not been administered. Low dose protocols were performed. One or more of the following dose reduction techniques were used; automated exposure control, adjustment of the mA and/or KV according to patient size, use of iterative reconstruction technique. Findings: Moderate enlargement cardiac contour Pneumonia right base No focal liver or splenic lesions No gallstones No pancreatic mass 7.9 cm upper pole right renal cyst, 6 cm anterior right renal cyst Mild bilateral hydronephrosis without ureteral calculi, likely related to massive prostatomegaly, AP dimension 8.4 cm Urinary bladder wall thickening with air density in the urinary bladder, wall thickening measures up to 5 mm 25 mm fat-containing umbilical hernia No pericecal inflammatory change Urinary Bustamante catheter is actually in the prostatic urethra IMPRESSION: Massive prostatomegaly causing mild bilateral hydronephrosis and early wall thickening in the urinary bladder Urinary Bustamante catheter is in the prostatic urethra
[2025-04-13] MEDS: INSULIN LISPRO (AdmeLOG) 1 UNIT/0.01 ML UNIT SC (11:45)
--- NOTE | 2025-04-13 12:03 | PD.RESPRO ---
Documentation for date of: 04/13/25 Subjective Subjective Interval history: Patient seen and examined at the bedside this morning. He seemed tired and was sleeping this morning. He reported doing well. Confusion has improved. He denied any SOB, chest pain, dizziness, headache, abdominal pain, admitted mild orthopnea but denied PND, or palpitations. Pt was having clot on urine, suggestive of obstructive uropathy rather than over diuresis. Creatinine improved to 1.7 Negative by ~ 10L since admission with diuresis initially TTE was significant for diastolic dysfunction, but unable to grade because of atrial fibrillation, LVEF 60 to 65%. Recommended to further evaluate urine protein level, as it was 2+. Dark clots were suspected in the urine on 04/11/25 and was placed on saline bladder irrigation, discontinued on 04/13/2025 Aspirin 81 Mg daily, Eliquis 5 Mg twice daily (hold due to hematuria), metoprolol succinate 100 Mg daily and atorvastatin 40 Mg daily at night to maintain LDL level less than 55 in the setting of past medical history of hypertension, diabetes mellitus and stroke. Atorvastatin 40 Mg daily at night. Metoprolol succinate 100 Mg daily. During discharge, patient should be placed on 40 mg Lasix daily and follow-up with director of patient safety Dr. Toney after 1 week of discharge. Recommend to start physical therapy for the patient and evaluate his oxygen needs if he needs oxygen via nasal cannula. Presently, patient needs 2 to 3 L oxygen via nasal cannula only at night. Recommend to keep saturation between 88 to 92%. Keep magnesium and potassium greater than 2 and 4 respectively all the times Exam Vital Signs Temp Pulse Resp BP Pulse Ox O2 Del Method O2 Flow Rate 97.3 F 72 17 143/93 H 96 Nasal Cannula 3 04/13/25 08:00 04/13/25 08:00 04/13/25 08:00 04/13/25 08:00 04/13/25 08:00 04/13/25 08:00 04/13/25 08:00 FiO2 40 04/13/25 04:00 Narrative Exam General: Obese, cooperative gentleman, no acute distress, A & O x3 HEENT: Moist mucous membranes, oropharynx clear Neck: Supple, No masses, No JVD CVS: Irregularly irregular rate and rhythm, No murmurs, rubs or gallops Lungs: Clear lung sounds, no wheeze or crackles, no rhonchi Abd: Mildly distended/ NT, +BS, unable to appreciate any organomegaly Ext: No peripheral edema, palpable peripheral pulses Skin: Darkening of bilateral lower legs Psych: Appropriate mood and affect Objective Labs 04/15/25 04:47 04/15/25 04:47 Labs: Laboratory Results - last 24 hr 04/13/25 05:50 WBC 8.3 RBC 5.04 Hgb 13.5 Hct 45.7 MCV 91 MCH 26.8 MCHC 29.5 L RDW Std Deviation 51.8 H Plt Count 182 Neut % (Auto) 77 Lymph % (Auto) 9 L Aiken % (Auto) 10 Eos % (Auto) 3 Baso % (Auto) 0 Neut # (Auto) 6.4 Lymph # (Auto) 0.8 L Aiken # (Auto) 0.9 H Eos # (Auto) 0.2 Baso # (Auto) 0.0 Immature Gran # (Auto) 0.03 H Absolute Nucleated RBC 0.00 Immature Gran % 0 Nucleated RBC % 0 Sodium 144 Potassium 3.8 Chloride 100 Carbon Dioxide 34.5 H Anion Gap 10 BUN 43 H Creatinine 1.7 H D Estim Creat Clear Calc 44.7 L eGFR 42 L BUN/Creatinine Ratio 25 H Glucose 159 H Calculated Osmolality 300 H Calcium 8.2 L Corrected Calcium 8.7 Phosphorus 2.4 Magnesium 2.2 Total Bilirubin 1.5 H AST 24 ALT 20 Alkaline Phosphatase 74 Total Protein 5.9 Albumin 3.4 Globulin 2.5 Albumin/Globulin Ratio 1.4 ABG Interpretation ABG results: 04/04/25 04/04/25 04/04/25 13:42 17:07 18:33 ABG pH 7.14 L* 7.20 L ABG pCO2 107 H* 111 H* ABG pO2 85 78 L ABG HCO3 36 H 39 H ABG O2 Saturation 94 92 ABG Base Excess 4 H 6 H VBG pH 7.48 VBG pCO2 50 VBG pO2 82 H VBG Base Excess 11 H 04/04/25 04/04/25 04/04/25 19:35 22:40 23:52 ABG pH 7.16 L* 7.59 H D 7.53 H ABG pCO2 113 H* 37 D 45 ABG pO2 53 L* D 194 H D 87 D ABG HCO3 40 H 36 H 37 H ABG O2 Saturation 78 L 101 H 99 H ABG Base Excess 7 H 13 H 13 H VBG pH VBG pCO2 VBG pO2 VBG Base Excess 04/05/25 04/05/25 04/05/25 01:20 04:52 13:02 ABG pH 7.52 H 7.47 H 7.30 L D ABG pCO2 47 50 H 74 H* D ABG pO2 60 L D 60 L 64 L ABG HCO3 38 H 37 H 37 H ABG O2 Saturation 94 93 89 L ABG Base Excess 13 H 11 H 7 H VBG pH VBG pCO2 VBG pO2 VBG Base Excess 04/06/25 04/07/25 04/09/25 03:55 10:54 04:42 ABG pH 7.36 7.50 H ABG pCO2 70 H 63 H ABG pO2 101 D 57 L* ABG HCO3 39 H 49 H ABG O2 Saturation 98 91 ABG Base Excess 10 H 21 H VBG pH 7.40 VBG pCO2 67 H D VBG pO2 76 H VBG Base Excess 13 H 04/09/25 04/09/25 04/09/25 06:25 13:10 22:47 ABG pH 7.52 H 7.47 H ABG pCO2 56 H 61 H ABG pO2 79 L D 62 L ABG HCO3 46 H 44 H ABG O2 Saturation 97 92 ABG Base Excess 19 H 16 H VBG pH 7.56 VBG pCO2 52 D VBG pO2 43 D VBG Base Excess 21 H 04/10/25 04/10/25 04/10/25 05:22 12:07 17:17 ABG pH 7.43 7.40 ABG pCO2 64 H 68 H ABG pO2 64 L 77 L ABG HCO3 43 H 42 H ABG O2 Saturation 92 95 ABG Base Excess 15 H 14 H VBG pH 7.55 VBG pCO2 45 VBG pO2 76 H D VBG Base Excess 15 H Quality Measures Quality Measures VTE prophylaxis Advance care planning discussed with:: patient and sibling Assessment & Plan Assessment Current Active Medications: Generic Name Dose Route Start Last Admin Trade Name Freq PRN Reason Stop Dose Admin Acetaminophen 650 mg 04/04/25 17:27 Acetaminophen 325 Mg Tablet PO 05/04/25 17:26 Q6H PRN Fever >100 or pain 1-3 Apixaban 5 mg 04/07/25 21:00 04/13/25 08:24 Apixaban 2.5 Mg Tablet PO 05/07/25 20:59 5 mg BID JOSELUIS Administration Aspirin 81 mg 04/05/25 09:00 04/13/25 08:24 Aspirin Ec 81 Mg Tabec PO 05/05/25 08:59 81 mg QDAY JOSELUIS Administration Atorvastatin Calcium 40 mg 04/07/25 21:00 04/12/25 20:52 Atorvastatin Calcium 20 Mg Tablet PO 05/07/25 20:59 40 mg HS JOSELUIS Administration Ciprofloxacin 500 mg 04/13/25 21:00 Ciprofloxacin Hcl 250 Mg Tablet PO 04/20/25 20:59 BID JOSELUIS Alfuzosin Er 10 Mg 0 ea 04/11/25 13:45 04/13/25 08:24 Tablet PO 05/11/25 13:44 1 tablet QDAY JOSELUIS Administration Dextrose 25 ml 04/04/25 17:38 Dextrose 50%-Water Inj 50 Ml Syringe IV 05/04/25 17:37 Q15MIN PRN BG 50-70 responsive npo pt Dextrose 50 ml 04/04/25 17:38 Dextrose 50%-Water Inj 50 Ml Syringe IV 05/04/25 17:37 Q15MIN PRN BG <50 OR BG <70 & pt unresponsive Glucagon 1 mg 04/04/25 17:38 Glucagon Inj 1 Mg Vial IM Q15MIN PRN BG <70, and no IV access Insulin Glargine 5 unit 04/06/25 21:00 04/12/25 20:50 Insulin Glargine (Lantus) 5 Unit/0.05 Ml (Per 5 Units) SC 05/06/25 20:59 5 unit HS JOSELUIS Administration Insulin Human Lispro 0 unit 04/07/25 07:30 04/13/25 11:45 Insulin Lispro (Admelog) 1 Unit/0.01 Ml Unit SC 05/07/25 07:29 1 unit ACHS JOSELUIS Administration Protocol Ipratropium Sylva 0.5 mg 04/07/25 07:45 04/13/25 06:54 Ipratropium Rt 0.5 Mg/ 2.5 Ml Nebu INH 05/07/25 07:44 0.5 mg Q8HRRT JOSELUIS Administration Levalbuterol HCl 1.25 mg 04/07/25 07:45 04/13/25 06:55 Levalbuterol Rt 1.25 Mg/0.5 Ml Nebu INH 05/07/25 07:44 1.25 mg Q8HRRT JOSELUIS Administration Metoprolol Succinate 100 mg 04/06/25 21:00 04/12/25 20:52 Metoprolol Succinate Xl 25 Mg Tabcr PO 05/06/25 20:59 100 mg HS JOSELUIS Administration Ondansetron HCl 4 mg 04/04/25 17:32 Ondansetron Inj 2 Mg/Ml Inj 2 Ml IVP 05/04/25 17:31 Q6H PRN NAUSEA OR VOMITING Protocol Pantoprazole Sodium 40 mg 04/10/25 09:00 04/13/25 08:24 Pantoprazole 40 Mg Tablet PO 05/10/25 08:59 40 mg QDAY JOSELUIS Administration Protocol Sodium Chloride 3 ml 04/04/25 17:27 Sodium Chloride Rt Zo 0.9% 3 Ml Nebu INH 05/04/25 17:26 PRN PRN SOLN Plan The patient is a 74-year-old male with past medical history significant for hypertension, possible CAD, chronic A-fib, type 2 diabetes mellitus, MOUNIKA and acute CVA in 2019 presented to ED with chief complaint of worsening SOB for the past couple of months is currently being managed for acute on chronic hypoxic respiratory failure. Cardiology consultation was done for further management of possible new onset CHF exacerbation in the setting of longstanding atrial fibrillation. # 2/2 #Post obstructive uropathy Improving The patient presented initially with volume overload in the setting of HFpEF exacerbation, and was diuresed about 9 L since admission. On 04/10/2025, the patient's creatinine was 1.4, and repeat creatinine after 1 L of bolus fluid was 1.7, and this morning it was 3.0, and repeat creatinine was 3.6. Urine output was less than 400 cc in 24 hours. On 04/11/2025, the patient had about 2.5 L of urine output, with mild improvement in creatinine to 3.1. Dark clots were suspected in the urine on 04/11/25 and was placed on saline bladder irrigation, discontinued on 04/13/2025. On 04/13/2025, creatinine has improved to 1.7 - Primary team ordered CT abd/pelvis - Patient started on IV normal saline 80 cc/h - Nephrology consultation done - Avoid nephrotoxic drugs - Renally dose medications - Daily a.m. labs were renal panel - Aspirin 81 Mg daily, Eliquis 5 Mg twice daily (hold due to hematuria), metoprolol succinate 100 Mg daily and atorvastatin 40 Mg daily at night to maintain LDL level less than 55 in the setting of past medical history of hypertension, diabetes mellitus and stroke. Atorvastatin 40 Mg daily at night. Metoprolol succinate 100 Mg daily. - During discharge, patient should be placed on 40 mg Lasix daily and follow-up with director of patient safety Dr. Toney after 1 week of discharge. Patient seen and examined at the bedside this morning. He seemed tired and was sleeping this morning. He reported doing well. Confusion has improved. He denied any SOB, chest pain, dizziness, headache, abdominal pain, admitted mild orthopnea but denied PND, or palpitations. Pt was having clot on urine, suggestive of obstructive uropathy rather than over diuresis. Creatinine improved to 1.7 Negative by ~ 10L since admission with diuresis initially TTE was significant for diastolic dysfunction, but unable to grade because of atrial fibrillation, LVEF 60 to 65%. Recommended to further evaluate urine protein level, as it was 2+. Dark clots were suspected in the urine on 04/11/25 and was placed on saline bladder irrigation, discontinued on 04/13/2025 During discharge, patient should be placed on 40 mg Lasix daily and follow-up with director of patient safety Dr. Toney after 1 week of discharge. #Acute on chronic hypoxic respiratory failure 2/2 S/P extubation #New onset diastolic CHF exacerbation, in the setting of #Chronic atrial fibrillation #Aspiration pneumonia, resolved #MOUNIKA Patient presented with chief complaint of worsening of SOB for past couple of months, visited PCP for 2 times, was given some medications that did not help at all. The patient has history of longstanding atrial fibrillation diagnosed about 5 years ago, but patient is unaware of the situation. Physical exam is significant for generalized anasarca. Liver enzymes WNL, though suspicious for cirrhosis as there is irregular liver counter, but synthetic and detoxification function of liver is intact, suggestive of more likely acute new onset CHF exacerbation. TSH 1.35 [id number] score of 6 - Diuresed well - Hold diuretics - Metoprolol succinate 100 Mg daily at night for rate control - Maintain potassium and magnesium greater than 4 and greater than 2 all the time - Strict ins and out, fluid restriction of 2000 cc daily - Low-sodium diet - Patient education regarding CHF and atrial fibrillation - CPAP/BiPAP at night, as needed at daytime - Telemetry monitoring - Eliquis 5 Mg twice daily (Hold due to hematuria, and resume after hematuria improves). - Recommend to keep saturation between 88 to 92%. Recommend to start physical therapy for the patient and evaluate his oxygen needs if he needs oxygen via nasal cannula. Currently, back to baseline. Net Negative by ~ 9L since admission During discharge, the patient should be started on Lasix 20 mg daily, but after 3 days of discharge. Recommended to follow-up with director of patient safety Dr. toney within 1 week of discharge. #Past medical history of acute CVA in 2019 #Hypertension #Hyperlipidemia #Possible CAD LDL 73 Blood pressure soft at this time -Aspirin 81 Mg daily -Lipitor 40 Mg daily at night, to maintain LDL level less than 55 in the setting of hypertension, diabetes mellitus type 2 and past medical history of CVA -Antihypertensive will be adjusted given the patient's heart rate and blood pressure, currently started on metoprolol succinate 100 Mg daily at night #DM type II, A1c 6.9 #Rule out cirrhosis #Proteinuria, to be further evaluated Rest of the management deferred to primary hospitalist team. During discharge, the patient should be started on Lasix 20 mg daily, but after 3 days of discharge. Recommended to follow-up with director of patient safety Dr. toney within 1 week of discharge. Thank you for consulting cardiology team. We appreciate the opportunity to participate in this patient's care. Cardiology team will continue to follow-up on this patient care. The patient's management plan was discussed with my attending physician MD Escobar Torres MD, PGY3 Attending Provider Attestation/Addendum I have personally seen and examined the patient separately on the above date of service and discussed the plan of care with the resident. I reviewed the resident Dr. Escobar Francis consultation progress note and agree with the resident findings and plan in the note above and have also edited the documentation to reflect my findings and plan. Luis Toney M.D. Interventional Cardiology
--- NOTE | 2025-04-13 16:20 | PC.SS ---
Follow up note: SS received a call from patient's sister, Blanca. They discussed as a family and changed their mind and now want SNF. They prefer [facility]. SS will need to cancel trilogy device delivery with [facility]. SS sent inquiry off on [employer]. PASRR will need to be completed. Prior auth needed from [facility]
[2025-04-13] MEDS: ATORVASTATIN CALCIUM 20 MG TABLET 40 MG PO (21:15)
[2025-04-13] MEDS: CIPROFLOXACIN HCL 250 MG TABLET 500 MG PO (21:15)
[2025-04-13] MEDS: METOPROLOL SUCCINATE XL 25 MG TABCR 100 MG PO (21:15)
[2025-04-13] MEDS: INSULIN GLARGINE (Lantus) 5 UNIT/0.05 ML (PER 5 UNITS) SC (21:16)
[2025-04-14] VITALS (10 sets, daily range): BP systolic 121–147; BP diastolic 74–90; PULSE 77–90; RESP 12–24; TEMP 35.9–36.5; O2SAT 92–99; BMI 35.0; BMI 13.0
[2025-04-14 06:09] LABS: Basophils # (Auto) 0.0 Thou/mm3 (0.0-0.2); Basophils % (Auto) 1 % (0-2.5); Eosinophils # (Auto) 0.3 Thou/mm3 (0.0-0.5); Eosinophils % (Auto) 4 % (0-10); Hematocrit 49.2 % (41.0-53.0); Hemoglobin 14.5 g/dL (13.5-16.0); Immature Granulocytes Auto 0.03 Thou/mm3 (0.00-0.00); Lymphocytes # (Auto) 0.7 Thou/mm3 (1.0-4.8); Lymphocytes % (Auto) 10 % (10-50); Mean Corpuscular HGB Conc 29.5 g/dl (31.0-37.0); Mean Corpuscular Hemoglobin 27.1 pg (25.0-35.0); Mean Corpuscular Volume 92 fL (80-100); Monocytes # (Auto) 0.7 Thou/mm3 (0.0-0.8); Monocytes % (Auto) 10 % (0-12); Neutrophils # (Auto) 5.6 Thou/mm3 (1.8-7.7); Neutrophils % (Auto) 76 % (37-80); Nucleated Red Blood Cell # 0.00 Thou/mm3 (0.00-0.00); Nucleated Red Blood Cell % 0 /100 WBC (0); Platelet Count 181 Thou/mm3 (140-440); RDW Standard Deviation 52.2 fL (35.1-43.9); Red Blood Count 5.36 Miln/mm3 (4.50-5.90); White Blood Count 7.4 Thou/mm3 (3.8-10.6)
[2025-04-14 06:50] LABS: Alanine Aminotransferase 20 U/L (10-49); Albumin, Serum 3.6 gm/dL (3.4-4.8); Albumin/Globulin Ratio 1.5 (1.2-2.2); Alkaline Phosphatase 79 U/L (46-116); Anion Gap 7 (7-16); Aspartate Amino Transferase 22 U/L (0-34); BUN/Creatinine Ratio 25 Ratio (12-20); Bilirubin,Total 1.9 mg/dL (0.3-1.2); Blood Urea Nitrogen 35 mg/dL (9-23); Calcium 8.4 mg/dL (8.3-10.6); Calcium (Corrected) 8.7 mg/dL (8.5-10.1); Carbon Dioxide 36.0 mMol/L (20.0-31.0); Chloride 101 mMol/L (98-107); Creatinine (Component) 1.4 mg/dL (0.6-1.3); Estimated Creatinine Clearance 54.2 mL/min (>60); Globulin 2.4 gm/dL (2.3-3.5); Glucose 140 mg/dL (74-106); Magnesium 1.5 mg/dL (1.6-2.6); Osmolality,Calculated 296 (275-295); Phosphorous 2.5 mg/dL (2.4-5.1); Potassium 4.2 mMol/L (3.4-5.1); Sodium 144 mMol/L (136-145); Total Protein 6.0 gm/dL (5.7-8.2); eGFR 52 See Note
[2025-04-14] MEDS: IPRATROPIUM RT 0.5 MG/ 2.5 ML NEBU INH ×3 (06:53→22:14)
[2025-04-14] MEDS: LEVALBUTEROL RT 1.25 MG/0.5 ML NEBU INH ×3 (06:53→22:14)
--- NOTE | 2025-04-14 08:12 | ESPR_ITS ---
Documentation for date of: 04/14/25 Subjective Subjective Interval history: Kade Dalal is a 74-year-old male with PMHx of A-fib on ELIQUIS, HTN, T2DM, MOUNIKA/OHS, chronic respiratory failure, on home 2-3 L oxygen, admitted for volume overload requiring intubation and aggressive diuresis and SOB. Echo showed EF 65% with diastolic dysfunction. He has been on diuresis since. With a total of 9 L fluid removed. Overall oxygen demand improved from baseline, currently on 1 L NC. Continued on BiPAP HS. Patient received 500 cc NS x2 after worsening contraction alkalosis was shown on chem panel and vbg/abg. Cardiology is considering DIAMOX if CO2 remains elevated. Nephrology is consulted in for likely due to prerenal azotemia secondary to over-diuresis. 04/10/2025 Patient was seen and examined. No acute events overnight. Patient is resting in bed and does not have any complaints or concerns. Patient states that he has been using the bipap machine at night even though at home he has not been taking it as much. Patient endorses making urine yesterday, but not any today, and passing stool. Patient denies having history of being unable to make urine in the past. Patient denies fatigue, dizziness, weakness, chest pain, shortness of breath, abdominal pain, dysuria. 04/11/2025 Patient had a rapid called yesterday evening for altered mental status, was found difficult to awaken, eventually became a&o x4 after multiple sternal rubs and returning back to baseline. This morning patient was doing well, vital signs stable, no new concerns/complaints. Patient denies fever, chest pain, shortness of breath. Patient's has been making urine, 1800 ml last 24 hr. Patient's moss bag appeared very dark in color this morning, maybe from traumatic insertion, will continue to monitor; will be given more IV fluids today. 04/12/2025 No acute events overnight. Patient has been making dark urine. Patient was not on fluids overnight, had improved creatinine levels this morning. Patient this morning does not have any new complaints or concerns. Patient denies having any fever, chest pain, shortness of breath. 04/13/2025 No acute events overnight. Patient continues to make dark red urine. Patient's creatinine continues to improve (1.7 today). Patient had bladder irrigation yesterday, discontinuing today. Patient this morning does not have any new complaints or concerns. Patient denies having any fever, chest pain, shortness of breath. 04/14/2025 No acute events overnight. Patient continues to make dark red urine. Patient's creatinine continues to improve (1.4 today). Patient this morning does not have any new complaints or concerns. Patient denies having any fever, chest pain, shortness of breath. Exam Vital Signs Temp Pulse Resp BP Pulse Ox O2 Del Method O2 Flow Rate 96.7 F L 90 12 137/90 H 98 BiPAP 4 04/14/25 04:00 04/14/25 06:54 04/14/25 06:54 04/14/25 04:00 04/14/25 06:54 04/14/25 04:00 04/14/25 06:54 FiO2 32 04/14/25 06:54 Narrative Exam Gen: alert and oriented x3, NAD, vitals reviewed Head/Neck: NCAT, no gross LAD ENT: EOMI grossly, anicteric sclerae, mmm Resp: Lungs CTAB, normal respiratory effort, symmetric chest rise CV: regular rhythm, regular rate; extremities well perfused GI: no distension; no tenderness, normal bowel sounds present Ext: no clubbing, cyanosis. no Lower extremity edema Skin: chronic venous stasis, no new rash or lesions on visual exam Neuro/MSK: moves all extremities Psych: normal mood; appropriate affect Objective Labs 04/15/25 04:47 04/15/25 04:47 Labs: Laboratory Results - last 24 hr 04/14/25 05:40 WBC 7.4 RBC 5.36 Hgb 14.5 Hct 49.2 MCV 92 MCH 27.1 MCHC 29.5 L RDW Std Deviation 52.2 H Plt Count 181 Neut % (Auto) 76 Lymph % (Auto) 10 [place] % (Auto) 10 Eos % (Auto) 4 Baso % (Auto) 1 Neut # (Auto) 5.6 Lymph # (Auto) 0.7 L [place] # (Auto) 0.7 Eos # (Auto) 0.3 Baso # (Auto) 0.0 Immature Gran # (Auto) 0.03 H Absolute Nucleated RBC 0.00 Immature Gran % 0 Nucleated RBC % 0 Sodium 144 Potassium 4.2 Chloride 101 Carbon Dioxide 36.0 H Anion Gap 7 BUN 35 H Creatinine 1.4 H Estim Creat Clear Calc 54.2 L eGFR 52 L BUN/Creatinine Ratio 25 H Glucose 140 H Calculated Osmolality 296 H Calcium 8.4 Corrected Calcium 8.7 Phosphorus 2.5 Magnesium 1.5 L Total Bilirubin 1.9 H AST 22 ALT 20 Alkaline Phosphatase 79 Total Protein 6.0 Albumin 3.6 Globulin 2.4 Albumin/Globulin Ratio 1.5 ABG Interpretation ABG results: 04/04/25 04/04/25 04/04/25 13:42 17:07 18:33 ABG pH 7.14 L* 7.20 L ABG pCO2 107 H* 111 H* ABG pO2 85 78 L ABG HCO3 36 H 39 H ABG O2 Saturation 94 92 ABG Base Excess 4 H 6 H VBG pH 7.48 VBG pCO2 50 VBG pO2 82 H VBG Base Excess 11 H 04/04/25 04/04/25 04/04/25 19:35 22:40 23:52 ABG pH 7.16 L* 7.59 H D 7.53 H ABG pCO2 113 H* 37 D 45 ABG pO2 53 L* D 194 H D 87 D ABG HCO3 40 H 36 H 37 H ABG O2 Saturation 78 L 101 H 99 H ABG Base Excess 7 H 13 H 13 H VBG pH VBG pCO2 VBG pO2 VBG Base Excess 04/05/25 04/05/25 04/05/25 01:20 04:52 13:02 ABG pH 7.52 H 7.47 H 7.30 L D ABG pCO2 47 50 H 74 H* D ABG pO2 60 L D 60 L 64 L ABG HCO3 38 H 37 H 37 H ABG O2 Saturation 94 93 89 L ABG Base Excess 13 H 11 H 7 H VBG pH VBG pCO2 VBG pO2 VBG Base Excess 04/06/25 04/07/25 04/09/25 03:55 10:54 04:42 ABG pH 7.36 7.50 H ABG pCO2 70 H 63 H ABG pO2 101 D 57 L* ABG HCO3 39 H 49 H ABG O2 Saturation 98 91 ABG Base Excess 10 H 21 H VBG pH 7.40 VBG pCO2 67 H D VBG pO2 76 H VBG Base Excess 13 H 04/09/25 04/09/25 04/09/25 06:25 13:10 22:47 ABG pH 7.52 H 7.47 H ABG pCO2 56 H 61 H ABG pO2 79 L D 62 L ABG HCO3 46 H 44 H ABG O2 Saturation 97 92 ABG Base Excess 19 H 16 H VBG pH 7.56 VBG pCO2 52 D VBG pO2 43 D VBG Base Excess 21 H 04/10/25 04/10/25 04/10/25 05:22 12:07 17:17 ABG pH 7.43 7.40 ABG pCO2 64 H 68 H ABG pO2 64 L 77 L ABG HCO3 43 H 42 H ABG O2 Saturation 92 95 ABG Base Excess 15 H 14 H VBG pH 7.55 VBG pCO2 45 VBG pO2 76 H D VBG Base Excess 15 H Quality Measures Quality Measures VTE prophylaxis Advance care planning discussed with:: patient Assessment & Plan Assessment Current Active Medications: Generic Name Dose Route Start Last Admin Trade Name Freq PRN Reason Stop Dose Admin Acetaminophen 650 mg 04/04/25 17:27 Acetaminophen 325 Mg Tablet PO 05/04/25 17:26 Q6H PRN Fever >100 or pain 1-3 Apixaban 5 mg 04/07/25 21:00 04/13/25 08:24 Apixaban 2.5 Mg Tablet PO 05/07/25 20:59 5 mg BID JOSELUIS Administration Aspirin 81 mg 04/05/25 09:00 04/13/25 08:24 Aspirin Ec 81 Mg Tabec PO 05/05/25 08:59 81 mg QDAY JOSELUIS Administration Atorvastatin Calcium 40 mg 04/07/25 21:00 04/13/25 21:15 Atorvastatin Calcium 20 Mg Tablet PO 05/07/25 20:59 40 mg HS JOSELUIS Administration Ciprofloxacin 500 mg 04/13/25 21:00 04/13/25 21:15 Ciprofloxacin Hcl 250 Mg Tablet PO 04/20/25 20:59 500 mg BID JOSELUIS Administration Alfuzosin Er 10 Mg 0 ea 04/11/25 13:45 04/13/25 08:24 Tablet PO 05/11/25 13:44 1 tablet QDAY JOSELUIS Administration Dextrose 25 ml 04/04/25 17:38 Dextrose 50%-Water Inj 50 Ml Syringe IV 05/04/25 17:37 Q15MIN PRN BG 50-70 responsive npo pt Dextrose 50 ml 04/04/25 17:38 Dextrose 50%-Water Inj 50 Ml Syringe IV 05/04/25 17:37 Q15MIN PRN BG <50 OR BG <70 & pt unresponsive Glucagon 1 mg 04/04/25 17:38 Glucagon Inj 1 Mg Vial IM Q15MIN PRN BG <70, and no IV access Magnesium Sulfate 2 gm in 50 mls @ 25 mls/hr 04/14/25 08:05 Magnesium Sulfate Ivpb IV 04/14/25 10:04 X1 ONE Insulin Glargine 5 unit 04/06/25 21:00 04/13/25 21:16 Insulin Glargine (Lantus) 5 Unit/0.05 Ml (Per 5 Units) SC 05/06/25 20:59 5 unit HS JOSELUIS Administration Insulin Human Lispro 0 unit 04/07/25 07:30 04/14/25 07:35 Insulin Lispro (Admelog) 1 Unit/0.01 Ml Unit SC 05/07/25 07:29 Not Given ACHS JOSELUIS Protocol Ipratropium [place] 0.5 mg 04/07/25 07:45 04/14/25 06:53 Ipratropium Rt 0.5 Mg/ 2.5 Ml Nebu INH 05/07/25 07:44 0.5 mg Q8HRRT JOSELUIS Administration Levalbuterol HCl 1.25 mg 04/07/25 07:45 04/14/25 06:53 Levalbuterol Rt 1.25 Mg/0.5 Ml Nebu INH 05/07/25 07:44 1.25 mg Q8HRRT JOSELUIS Administration Metoprolol Succinate 100 mg 04/06/25 21:00 04/13/25 21:15 Metoprolol Succinate Xl 25 Mg Tabcr PO 05/06/25 20:59 100 mg HS JOSELUIS Administration Ondansetron HCl 4 mg 04/04/25 17:32 Ondansetron Inj 2 Mg/Ml Inj 2 Ml IVP 05/04/25 17:31 Q6H PRN NAUSEA OR VOMITING Protocol Pantoprazole Sodium 40 mg 04/10/25 09:00 04/13/25 08:24 Pantoprazole 40 Mg Tablet PO 05/10/25 08:59 40 mg QDAY JOSELUIS Administration Protocol Sodium Chloride 3 ml 04/04/25 17:27 Sodium Chloride Rt Zo 0.9% 3 Ml Nebu INH 05/04/25 17:26 PRN PRN SOLN Plan In summary: 74-year-old male with PMHx of A-fib on ELIQUIS, HTN, T2DM, MOUNIKA/OHS, chronic respiratory failure, on home 2-3 L oxygen, presented with shortness of breath. Admitted for volume overload requiring intubation and aggressive diuresis. Subsequently extubated successfully, but has worsening hypercapnic respiratory failure. Nephrology consulted for management of . # Acute Kidney Injury Likely ATN with Cr now improving (at 1.4 currently) vs potential obstructive etiology; Patient initially noted to have with current Cr 3.0 (over baseline ~1.0). Suspect pre-renal due to over-diuresis in context of chf exacerbation vs obstructive (CT AP shows: Massive prostatomegaly causing mild bilateral hydronephrosis and early wall thickening in the urinary bladder). thickening in the urinary bladder Holding fluids due to patient's volume status appearing full. Denies dizziness, weakness. Patient UOP 3800 ml last 24 hrs. Today urine in moss looked dark colored. - Cr largely improved, good urine output; continued hematuria - renally dose medications - hold nephrotoxic meds Acute metabolic encephalopathy Acute on chronic hypercapnic respiratory failure Contraction alkalosis with appropriate respiratory compensation CHF exacerbation MOUNIKA, OHS Fluid overload status (resolved) Tachycardia A-fib HTN HLD Pneumonia, CAP versus aspiration Reactive leukocytosis Hepatomegaly Hyperbilirubinemia, direct Normocytic normochromic anemia Hematuria T2DM Hx of CVA. Electrolyte abnormalities Above problems Medically managed through the primary team Thank you for allowing us to take part in the care of Mr. Dalal Plan of care discussed with attending, Dr. Jorgito Srivastava MD PGY-1 Attending Provider Attestation/Addendum Patient seen and examined with resident physician Dr. Srivastava. Note reviewed, agree with findings and recommendations. Clinically patient looks rather dehydrated. Hemoglobin 16.9. Patient seems to be sleepy when I examined him. Could not get much information. Spoke to sister. Hold off on diuretics. Give 1 L IV fluids with close monitoring of urinary output and creatinine. Plan of care discussed with Sister Wendy at bedside. 04/14/2025 patient currently seen in telemetry. Patient currently on BiPAP. Hematuria improved. DC bladder irrigation. Creatinine improved. Off diuretics. Hold off on fluids for now. Clinically looks euvolemic. Spoke to Subash-agree with urology consultation for recurrent hematuria.
[2025-04-14] MEDS: CIPROFLOXACIN HCL 250 MG TABLET 500 MG PO ×2 (09:29→20:41)
[2025-04-14] MEDS: ASPIRIN EC 81 MG TABEC PO (09:29)
[2025-04-14] MEDS: PANTOPRAZOLE 40 MG TABLET PO (09:29)
[2025-04-14] MEDS: Magnesium Sulfate 2 GM Ivpb 2 GM/50 ML BAG IV ×2 (09:29→11:01)
[2025-04-14] MEDS: ALFUZOSIN ER 10 MG TABLET PO (09:29)
--- NOTE | 2025-04-14 09:52 | ESPR_ITS ---
Documentation for date of: 04/14/25 Subjective Subjective Interval history: Patient seen and examined at the bedside this morning. He seemed tired and was sleeping this morning. He reported doing well. Confusion has improved. He denied any SOB, chest pain, dizziness, headache, abdominal pain, admitted mild orthopnea but denied PND, or palpitations. Vitals were fairly stable. CBC at baseline. CMP revealed improvement in creatinine with creatinine 1.4, BUN 35. Magnesium was 1.5 and repleted Pt was having clot on urine, suggestive of obstructive uropathy rather than over diuresis. Creatinine improved to 1.1 Negative by ~ 10L since admission with diuresis initially TTE was significant for diastolic dysfunction, but unable to grade because of atrial fibrillation, LVEF 60 to 65%. Recommended to further evaluate urine protein level, as it was 2+. Dark clots were suspected in the urine on 04/11/25 and was placed on saline bladder irrigation, discontinued on 04/13/2025 Aspirin 81 Mg daily, Eliquis 5 Mg twice daily (hold due to hematuria), metoprolol succinate 100 Mg daily and atorvastatin 40 Mg daily at night to maintain LDL level less than 55 in the setting of past medical history of hypertension, diabetes mellitus and stroke. Atorvastatin 40 Mg daily at night. Metoprolol succinate 100 Mg daily. During discharge, patient should be placed on 40 mg Lasix daily and follow-up with desktop operator Dr. Toney after 1 week of discharge. Exam Vital Signs Temp Pulse Resp BP Pulse Ox O2 Del Method O2 Flow Rate 97.0 F 81 17 141/86 H 95 BiPAP 4 04/14/25 08:00 04/14/25 08:00 04/14/25 08:00 04/14/25 08:00 04/14/25 08:00 04/14/25 08:00 04/14/25 08:00 FiO2 32 04/14/25 08:00 Narrative Exam General: Obese, cooperative gentleman, no acute distress, A & O x3 HEENT: Moist mucous membranes, oropharynx clear Neck: Supple, No masses, No JVD CVS: Irregularly irregular rate and rhythm, No murmurs, rubs or gallops Lungs: Clear lung sounds, no wheeze or crackles, no rhonchi Abd: Mildly distended/ NT, +BS, unable to appreciate any organomegaly Ext: No peripheral edema, palpable peripheral pulses Skin: Darkening of bilateral lower legs Psych: Appropriate mood and affect Objective Labs 04/15/25 04:47 04/15/25 04:47 Labs: Laboratory Results - last 24 hr 04/14/25 05:40 WBC 7.4 RBC 5.36 Hgb 14.5 Hct 49.2 MCV 92 MCH 27.1 MCHC 29.5 L RDW Std Deviation 52.2 H Plt Count 181 Neut % (Auto) 76 Lymph % (Auto) 10 [place] % (Auto) 10 Eos % (Auto) 4 Baso % (Auto) 1 Neut # (Auto) 5.6 Lymph # (Auto) 0.7 L [place] # (Auto) 0.7 Eos # (Auto) 0.3 Baso # (Auto) 0.0 Immature Gran # (Auto) 0.03 H Absolute Nucleated RBC 0.00 Immature Gran % 0 Nucleated RBC % 0 Sodium 144 Potassium 4.2 Chloride 101 Carbon Dioxide 36.0 H Anion Gap 7 BUN 35 H Creatinine 1.4 H Estim Creat Clear Calc 54.2 L eGFR 52 L BUN/Creatinine Ratio 25 H Glucose 140 H Calculated Osmolality 296 H Calcium 8.4 Corrected Calcium 8.7 Phosphorus 2.5 Magnesium 1.5 L Total Bilirubin 1.9 H AST 22 ALT 20 Alkaline Phosphatase 79 Total Protein 6.0 Albumin 3.6 Globulin 2.4 Albumin/Globulin Ratio 1.5 ABG Interpretation ABG results: 04/04/25 04/04/25 04/04/25 13:42 17:07 18:33 ABG pH 7.14 L* 7.20 L ABG pCO2 107 H* 111 H* ABG pO2 85 78 L ABG HCO3 36 H 39 H ABG O2 Saturation 94 92 ABG Base Excess 4 H 6 H VBG pH 7.48 VBG pCO2 50 VBG pO2 82 H VBG Base Excess 11 H 04/04/25 04/04/25 04/04/25 19:35 22:40 23:52 ABG pH 7.16 L* 7.59 H D 7.53 H ABG pCO2 113 H* 37 D 45 ABG pO2 53 L* D 194 H D 87 D ABG HCO3 40 H 36 H 37 H ABG O2 Saturation 78 L 101 H 99 H ABG Base Excess 7 H 13 H 13 H VBG pH VBG pCO2 VBG pO2 VBG Base Excess 04/05/25 04/05/2525 01:20 04:52 13:02 ABG pH 7.52 H 7.47 H 7.30 L D ABG pCO2 47 50 H 74 H* D ABG pO2 60 L D 60 L 64 L ABG HCO3 38 H 37 H 37 H ABG O2 Saturation 94 93 89 L ABG Base Excess 13 H 11 H 7 H VBG pH VBG pCO2 VBG pO2 VBG Base Excess 04/06/25 04/07/25 04/09/25 03:55 10:54 04:42 ABG pH 7.36 7.50 H ABG pCO2 70 H 63 H ABG pO2 101 D 57 L* ABG HCO3 39 H 49 H ABG O2 Saturation 98 91 ABG Base Excess 10 H 21 H VBG pH 7.40 VBG pCO2 67 H D VBG pO2 76 H VBG Base Excess 13 H 04/09/25 04/09/25 04/09/25 06:25 13:10 22:47 ABG pH 7.52 H 7.47 H ABG pCO2 56 H 61 H ABG pO2 79 L D 62 L ABG HCO3 46 H 44 H ABG O2 Saturation 97 92 ABG Base Excess 19 H 16 H VBG pH 7.56 VBG pCO2 52 D VBG pO2 43 D VBG Base Excess 21 H 04/10/25 04/10/25 04/10/25 05:22 12:07 17:17 ABG pH 7.43 7.40 ABG pCO2 64 H 68 H ABG pO2 64 L 77 L ABG HCO3 43 H 42 H ABG O2 Saturation 92 95 ABG Base Excess 15 H 14 H VBG pH 7.55 VBG pCO2 45 VBG pO2 76 H D VBG Base Excess 15 H Quality Measures Quality Measures VTE prophylaxis Advance care planning discussed with:: patient and sibling Assessment & Plan Assessment Current Active Medications: Generic Name Dose Route Start Last Admin Trade Name Freq PRN Reason Stop Dose Admin Acetaminophen 650 mg 04/04/25 17:27 Acetaminophen 325 Mg Tablet PO 05/04/25 17:26 Q6H PRN Fever >100 or pain 1-3 Apixaban 5 mg 04/07/25 21:00 04/13/25 08:24 Apixaban 2.5 Mg Tablet PO 05/07/25 20:59 5 mg BID JOSELUIS Administration Aspirin 81 mg 04/05/25 09:00 04/14/25 09:29 Aspirin Ec 81 Mg Tabec PO 05/05/25 08:59 81 mg QDAY JOSELUSI Administration Atorvastatin Calcium 40 mg 04/07/25 21:00 04/13/25 21:15 Atorvastatin Calcium 20 Mg Tablet PO 05/07/25 20:59 40 mg HS JOSELUIS Administration Ciprofloxacin 500 mg 04/13/25 21:00 04/14/25 09:29 Ciprofloxacin Hcl 250 Mg Tablet PO 04/20/25 20:59 500 mg BID JOSELUIS Administration Alfuzosin Er 10 Mg 0 ea 04/11/25 13:45 04/14/25 09:29 Tablet PO 05/11/25 13:44 1 tablet QDAY JOSELUIS Administration Dextrose 25 ml 04/04/25 17:38 Dextrose 50%-Water Inj 50 Ml Syringe IV 05/04/25 17:37 Q15MIN PRN BG 50-70 responsive npo pt Dextrose 50 ml 04/04/25 17:38 Dextrose 50%-Water Inj 50 Ml Syringe IV 05/04/25 17:37 Q15MIN PRN BG <50 OR BG <70 & pt unresponsive Glucagon 1 mg 04/04/25 17:38 Glucagon Inj 1 Mg Vial IM Q15MIN PRN BG <70, and no IV access Magnesium Sulfate 2 gm in 50 mls @ 25 mls/hr 04/14/25 08:05 04/14/25 09:29 Magnesium Sulfate Ivpb IV 04/14/25 10:04 25 mls/hr X1 ONE Administration Insulin Glargine 5 unit 04/06/25 21:00 04/13/25 21:16 Insulin Glargine (Lantus) 5 Unit/0.05 Ml (Per 5 Units) SC 05/06/25 20:59 5 unit HS JOSELUIS Administration Insulin Human Lispro 0 unit 04/07/25 07:30 04/14/25 07:35 Insulin Lispro (Admelog) 1 Unit/0.01 Ml Unit SC 05/07/25 07:29 Not Given ACHS [facility] Protocol Ipratropium [place] 0.5 mg 04/07/25 07:45 04/14/25 06:53 Ipratropium Rt 0.5 Mg/ 2.5 Ml Nebu INH 05/07/25 07:44 0.5 mg Q8HRRT JOSELUIS Administration Levalbuterol HCl 1.25 mg 04/07/25 07:45 04/14/25 06:53 Levalbuterol Rt 1.25 Mg/0.5 Ml Nebu INH 05/07/25 07:44 1.25 mg Q8HRRT JOSELUIS Administration Metoprolol Succinate 100 mg 04/06/25 21:00 04/13/25 21:15 Metoprolol Succinate Xl 25 Mg Tabcr PO 05/06/25 20:59 100 mg HS JOSELUIS Administration Ondansetron HCl 4 mg 04/04/25 17:32 Ondansetron Inj 2 Mg/Ml Inj 2 Ml IVP 05/04/25 17:31 Q6H PRN NAUSEA OR VOMITING Protocol Pantoprazole Sodium 40 mg 04/10/25 09:00 04/14/25 09:29 Pantoprazole 40 Mg Tablet PO 05/10/25 08:59 40 mg QDAY JOSELUIS Administration Protocol Sodium Chloride 3 ml 04/04/25 17:27 Sodium Chloride Rt Zo 0.9% 3 Ml Nebu INH 05/04/25 17:26 PRN PRN SOLN Plan The patient is a 74-year-old male with past medical history significant for hypertension, possible CAD, chronic A-fib, type 2 diabetes mellitus, MOUNIKA and acute CVA in 2019 presented to ED with chief complaint of worsening SOB for the past couple of months is currently being managed for acute on chronic hypoxic respiratory failure. Cardiology consultation was done for further management of possible new onset CHF exacerbation in the setting of longstanding atrial fibrillation. # 2/2 #Post obstructive uropathy Improving The patient presented initially with volume overload in the setting of HFpEF exacerbation, and was diuresed about 9 L since admission. On 04/10/2025, the patient's creatinine was 1.4, and repeat creatinine after 1 L of bolus fluid was 1.7, and this morning it was 3.0, and repeat creatinine was 3.6. Urine output was less than 400 cc in 24 hours. On 04/11/2025, the patient had about 2.5 L of urine output, with mild improvement in creatinine to 3.1. Dark clots were suspected in the urine on 04/11/25 and was placed on saline bladder irrigation, discontinued on 04/13/2025. On 04/14/2025, creatinine has improved to 1.4 - Primary team ordered CT abd/pelvis - Nephrology consultation done - Avoid nephrotoxic drugs - Renally dose medications - Daily a.m. labs were renal panel #Hematuria -Dr. Walters, urologist consulted. CT abdomen/pelvis done on 04/13/2025 revealed massive prostatomegaly causing mild bilateral hydronephrosis and early wall thickening in the urinary bladder #Acute on chronic hypoxic respiratory failure 2/2 S/P extubation #New onset diastolic CHF exacerbation, in the setting of #Chronic atrial fibrillation #Aspiration pneumonia, resolved #MOUNIKA Patient presented with chief complaint of worsening of SOB for past couple of months, visited PCP for 2 times, was given some medications that did not help at all. The patient has history of longstanding atrial fibrillation diagnosed about 5 years ago, but patient is unaware of the situation. Physical exam is significant for generalized anasarca. Liver enzymes WNL, though suspicious for cirrhosis as there is irregular liver counter, but synthetic and detoxification function of liver is intact, suggestive of more likely acute new onset CHF exacerbation. TSH 1.35 [id number] score of 6 - Diuresed well - Hold diuretics - Metoprolol succinate 100 Mg daily at night for rate control - Maintain potassium and magnesium greater than 4 and greater than 2 all the time - Strict ins and out, fluid restriction of 2000 cc daily - Low-sodium diet - Patient education regarding CHF and atrial fibrillation - CPAP/BiPAP at night, as needed at daytime - Telemetry monitoring - Eliquis 5 Mg twice daily (Hold due to hematuria, and resume after hematuria improves). - Recommend to keep saturation between 88 to 92%. Pt was having clot on urine, suggestive of obstructive uropathy rather than over diuresis. Creatinine improved to 1.1 Negative by ~ 10L since admission with diuresis initially TTE was significant for diastolic dysfunction, but unable to grade because of atrial fibrillation, LVEF 60 to 65%. Recommended to further evaluate urine protein level, as it was 2+. Dark clots were suspected in the urine on 04/11/25 and was placed on saline bladder irrigation, discontinued on 04/13/2025 Aspirin 81 Mg daily, Eliquis 5 Mg twice daily (hold due to hematuria), metoprolol succinate 100 Mg daily and atorvastatin 40 Mg daily at night to maintain LDL level less than 55 in the setting of past medical history of hypertension, diabetes mellitus and stroke. Atorvastatin 40 Mg daily at night. Metoprolol succinate 100 Mg daily. During discharge, patient should be placed on 40 mg Lasix daily and follow-up with desktop operator Dr. Toney after 1 week of discharge. #Past medical history of acute CVA in 2019 #Hypertension #Hyperlipidemia #Possible CAD LDL 73 Blood pressure soft at this time -Aspirin 81 Mg daily -Lipitor 40 Mg daily at night, to maintain LDL level less than 55 in the setting of hypertension, diabetes mellitus type 2 and past medical history of CVA -Antihypertensive will be adjusted given the patient's heart rate and blood pressure, currently started on metoprolol succinate 100 Mg daily at night #DM type II, A1c 6.9 #Rule out cirrhosis #Proteinuria, to be further evaluated Rest of the management deferred to primary hospitalist team. During discharge, the patient should be started on Lasix 20 mg daily, but after 3 days of discharge. Recommended to follow-up with desktop operator Dr. toney within 1 week of discharge. Thank you for consulting cardiology team. We appreciate the opportunity to participate in this patient's care. Cardiology team will continue to follow-up on this patient care. The patient's management plan was discussed with my attending physician MD Escobar Torres MD, PGY3 Attending Provider Attestation/Addendum I have personally seen and examined the patient separately on the above date of service and discussed the plan of care with the resident. I reviewed the resident Dr. Escobar Francis consultation progress note and agree with the resident findings and plan in the note above and have also edited the documentation to reflect my findings and plan. Luis Toney M.D. Interventional Cardiology
[2025-04-14] MEDS: INSULIN LISPRO (AdmeLOG) 1 UNIT/0.01 ML UNIT SC ×2 (11:27→17:22)
--- NOTE | 2025-04-14 12:50 | ESPR_ITS ---
Documentation for date of: 04/14/25 Subjective Subjective Interval history: Patient examined at bedside today. No acute overnight events. Patient is wondering his go home. Patient says that he has had blood in his urine before and has been in the hospital for before. He denies ever seeing a urologist. 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 No other complaints at this time. Exam Vital Signs Temp Pulse Resp BP Pulse Ox O2 Del Method O2 Flow Rate 97.4 F 86 24 H 121/83 92 L Nasal Cannula 4 04/14/25 12:00 04/14/25 12:00 04/14/25 12:00 04/14/25 12:00 04/14/25 12:00 04/14/25 12:00 04/14/25 12:00 FiO2 32 04/14/25 08:00 Narrative Exam Gen: alert and oriented x3, NAD, vitals reviewed Head/Neck: NCAT, no gross LAD ENT: EOMI grossly, anicteric sclerae, mmm Resp: Lungs CTAB, normal respiratory effort, symmetric chest rise CV: regular rhythm, regular rate; extremities well perfused GI: distended; no tenderness, normal bowel sounds present : Bustamante present, gross hematuria Ext: no clubbing, cyanosis. Trace LE edema bilaterally Skin: chronic venous stasis, no new rash or lesions on visual exam Neuro/MSK: moves all extremities Psych: normal mood; appropriate affect Objective Labs 04/14/25 05:40 04/14/25 05:40 Labs: Laboratory Results - last 24 hr 04/14/25 05:40 WBC 7.4 RBC 5.36 Hgb 14.5 Hct 49.2 MCV 92 MCH 27.1 MCHC 29.5 L RDW Std Deviation 52.2 H Plt Count 181 Neut % (Auto) 76 Lymph % (Auto) 10 [place] % (Auto) 10 Eos % (Auto) 4 Baso % (Auto) 1 Neut # (Auto) 5.6 Lymph # (Auto) 0.7 L [place] # (Auto) 0.7 Eos # (Auto) 0.3 Baso # (Auto) 0.0 Immature Gran # (Auto) 0.03 H Absolute Nucleated RBC 0.00 Immature Gran % 0 Nucleated RBC % 0 Sodium 144 Potassium 4.2 Chloride 101 Carbon Dioxide 36.0 H Anion Gap 7 BUN 35 H Creatinine 1.4 H Estim Creat Clear Calc 54.2 L eGFR 52 L BUN/Creatinine Ratio 25 H Glucose 140 H Calculated Osmolality 296 H Calcium 8.4 Corrected Calcium 8.7 Phosphorus 2.5 Magnesium 1.5 L Total Bilirubin 1.9 H AST 22 ALT 20 Alkaline Phosphatase 79 Total Protein 6.0 Albumin 3.6 Globulin 2.4 Albumin/Globulin Ratio 1.5 ABG Interpretation ABG results: 04/04/25 04/04/25 04/04/25 13:42 17:07 18:33 ABG pH 7.14 L* 7.20 L ABG pCO2 107 H* 111 H* ABG pO2 85 78 L ABG HCO3 36 H 39 H ABG O2 Saturation 94 92 ABG Base Excess 4 H 6 H VBG pH 7.48 VBG pCO2 50 VBG pO2 82 H VBG Base Excess 11 H 04/04/25 04/04/25 04/04/25 19:35 22:40 23:52 ABG pH 7.16 L* 7.59 H D 7.53 H ABG pCO2 113 H* 37 D 45 ABG pO2 53 L* D 194 H D 87 D ABG HCO3 40 H 36 H 37 H ABG O2 Saturation 78 L 101 H 99 H ABG Base Excess 7 H 13 H 13 H VBG pH VBG pCO2 VBG pO2 VBG Base Excess 04/05/25 04/05/25 04/05/25 01:20 04:52 13:02 ABG pH 7.52 H 7.47 H 7.30 L D ABG pCO2 47 50 H 74 H* D ABG pO2 60 L D 60 L 64 L ABG HCO3 38 H 37 H 37 H ABG O2 Saturation 94 93 89 L ABG Base Excess 13 H 11 H 7 H VBG pH VBG pCO2 VBG pO2 VBG Base Excess 04/06/25 04/07/25 04/09/25 03:55 10:54 04:42 ABG pH 7.36 7.50 H ABG pCO2 70 H 63 H ABG pO2 101 D 57 L* ABG HCO3 39 H 49 H ABG O2 Saturation 98 91 ABG Base Excess 10 H 21 H VBG pH 7.40 VBG pCO2 67 H D VBG pO2 76 H VBG Base Excess 13 H 04/09/25 04/09/25 04/09/25 06:25 13:10 22:47 ABG pH 7.52 H 7.47 H ABG pCO2 56 H 61 H ABG pO2 79 L D 62 L ABG HCO3 46 H 44 H ABG O2 Saturation 97 92 ABG Base Excess 19 H 16 H VBG pH 7.56 VBG pCO2 52 D VBG pO2 43 D VBG Base Excess 21 H 04/10/25 04/10/25 04/10/25 05:22 12:07 17:17 ABG pH 7.43 7.40 ABG pCO2 64 H 68 H ABG pO2 64 L 77 L ABG HCO3 43 H 42 H ABG O2 Saturation 92 95 ABG Base Excess 15 H 14 H VBG pH 7.55 VBG pCO2 45 VBG pO2 76 H D VBG Base Excess 15 H Quality Measures Quality Measures VTE prophylaxis Advance care planning discussed with:: patient Assessment & Plan Assessment Current Active Medications: Generic Name Dose Route Start Last Admin Trade Name Freq PRN Reason Stop Dose Admin Acetaminophen 650 mg 04/04/25 17:27 Acetaminophen 325 Mg Tablet PO 05/04/25 17:26 Q6H PRN Fever >100 or pain 1-3 Apixaban 5 mg 04/07/25 21:00 04/13/25 08:24 Apixaban 2.5 Mg Tablet PO 05/07/25 20:59 5 mg BID JOSELUIS Administration Atorvastatin Calcium 40 mg 04/07/25 21:00 04/13/25 21:15 Atorvastatin Calcium 20 Mg Tablet PO 05/07/25 20:59 40 mg HS JOSELUIS Administration Ciprofloxacin 500 mg 04/13/25 21:00 04/14/25 09:29 Ciprofloxacin Hcl 250 Mg Tablet PO 04/20/25 20:59 500 mg BID JOSELUIS Administration Alfuzosin Er 10 Mg 0 ea 04/11/25 13:45 04/14/25 09:29 Tablet PO 05/11/25 13:44 1 tablet QDAY JOSELUIS Administration Dextrose 25 ml 04/04/25 17:38 Dextrose 50%-Water Inj 50 Ml Syringe IV 05/04/25 17:37 Q15MIN PRN BG 50-70 responsive npo pt Dextrose 50 ml 04/04/25 17:38 Dextrose 50%-Water Inj 50 Ml Syringe IV 05/04/25 17:37 Q15MIN PRN BG <50 OR BG <70 & pt unresponsive Glucagon 1 mg 04/04/25 17:38 Glucagon Inj 1 Mg Vial IM Q15MIN PRN BG <70, and no IV access Insulin Glargine 5 unit 04/06/25 21:00 04/13/25 21:16 Insulin Glargine (Lantus) 5 Unit/0.05 Ml (Per 5 Units) SC 05/06/25 20:59 5 unit HS JOSELUIS Administration Insulin Human Lispro 0 unit 04/07/25 07:30 04/14/25 11:27 Insulin Lispro (Admelog) 1 Unit/0.01 Ml Unit SC 05/07/25 07:29 2 unit ACHS JOSELUIS Administration Protocol Ipratropium [place] 0.5 mg 04/07/25 07:45 04/14/25 06:53 Ipratropium Rt 0.5 Mg/ 2.5 Ml Nebu INH 05/07/25 07:44 0.5 mg Q8HRRT JOSELUIS Administration Levalbuterol HCl 1.25 mg 04/07/25 07:45 04/14/25 06:53 Levalbuterol Rt 1.25 Mg/0.5 Ml Nebu INH 05/07/25 07:44 1.25 mg Q8HRRT JOSELUIS Administration Metoprolol Succinate 100 mg 04/06/25 21:00 04/13/25 21:15 Metoprolol Succinate Xl 25 Mg Tabcr PO 05/06/25 20:59 100 mg HS JOSELUIS Administration Ondansetron HCl 4 mg 04/04/25 17:32 Ondansetron Inj 2 Mg/Ml Inj 2 Ml IVP 05/04/25 17:31 Q6H PRN NAUSEA OR VOMITING Protocol Pantoprazole Sodium 40 mg 04/10/25 09:00 04/14/25 09:29 Pantoprazole 40 Mg Tablet PO 05/10/25 08:59 40 mg QDAY JOSELUIS Administration Protocol Sodium Chloride 3 ml 04/04/25 17:27 Sodium Chloride Rt Zo 0.9% 3 Ml Nebu INH 05/04/25 17:26 PRN PRN SOLN Plan Assessment 74-year-old male with PMHx of A-fib on ELIQUIS, HTN, T2DM, MOUNIKA/OHS, chronic respiratory failure, on home 2-3 L oxygen, presented with shortness of breath. Admitted for volume overload requiring intubation and aggressive diuresis. Subsequently extubated successfully, but has worsening hypercapnic respiratory failure. Gross Hematuria Asymptomatic pyuria Bilateral hydronephrosis Massive prostamegaly Bustamante showing dark urine, UA showed dark red urine, cloudy, 3+ blood, 1+ protein, LE positive, 3954 RBCs, 426 WBC. Given acute spikes in WBC. Will treat for UTI, although he is asymptomatic. Per chart review, hematuria appears chronic. He was on bladder irrigation overnight, with persistent hematuria. We have consulted urology. ELIQUIS has been held. Hemoglobin otherwise WNL. UA negative for UTI, afebrile, no leukocytosis. Urine culture pending. Stopped CBI, have attempted to get in contact with urology, however have not been able to Will continue to try to speak with urology and also will speak with nephrology +3 blood and ~4000 RBCs in Urinanalysis Pt would benefit from cytoscopy to evaluate gross hematuria Plan: CT abdomen was ordered to rule out malignancy-related pneumaturia which showed bilateral mild hydronephrosis secondary to massive enlarged prostate. ? Continue CIPROFLOXACIN (04/11 to present) ? Continue home ALFUZOSIN ? 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 As stated previously, a few days ago, he had a RR for acute AMS where he was found unresponsive to painful stimuli. At the time MRI was done showing 90% stenosis of the posterior right cerebral artery junction at the P1?P2 segments. This high suspicion for recurrent TIA, likely resulting in central apnea, possible leading to irregular or ataxic breathing, which in his case would explain below findings. Per family patient had stroke 3 years ago, no residual deficit, head CT unremarkable. Carotid ultrasound showed no significant stenosis bilaterally. No recurrence of episodes. ? Continue ASPIRIN and ATORVASTATIN ? Neurology recommended outpatient follow-up, vascular surgery Acute metabolic encephalopathy Acute on chronic hypercapnic respiratory failure Contraction alkalosis with appropriate respiratory compensation (improving) CHF exacerbation Likely central sleep apnea, MOUNIKA, OHS Fluid overload status (resolved) Presented with volume overload and SOB, echo showed EF 65% with diastolic dysfunction. He has been on diuresis since. With a total of 9 L fluid removed. Overall oxygen demand improved from baseline, currently on 1 L NC. Continued on BiPAP HS. However this morning she was found acutely mildly encephalopathic, likely hypercapnia. Blood gas showed contraction alkalosis, compensation respiratory acidosis. Diuresis was held, and he continued on BiPAP intermittently and HS. CO2 improving overall. However mentation still waxing and waning, now higher suspicion for TIA as stated above. ? Maintain K > 4.0 and Mg > 2.0 ? Continue METOPROLOL succinate 100 mg HS ? Holding diuresis ? Continue BiPAP HS and intermittently throughout the day ? Trilogy has been approved and available on discharge Tachycardia (resolved) A-fib, rate controlled CHADVASC2:6 HASBLED: 3 History of A-fib, admission EKG showed A-fib with HR 88. New onset tachycardia, likely 2/2 beta agonist, or reactive to volume loss. Although high risk for RVR given recurrent tachycardia. Overnight had an episode of HR 123 was resolved after METOPROLOL x 1. ? Continue METOPROLOL as above ? HOLDING ELIQUIS 5 mg BID in settings of hematuria ? Maintain K > 4.0 and Mg > 2.0 ? Pending further recommendation from cardiology HTN HLD Currently normotensive with METOPROLOL as above. ? Unable to resume home HCTZ and LOSARTAN 2/2 ? Continue home ATORVASTATIN Prerenal azotemia (improving) Baseline CR 1.1. Has new with CR 1.4 > 1.7, likely 2/2 volume loss 2/2 diuresis. We have repleted with 1 L NS, and withheld diuresis for now. Nephrology on board, recommended no fluids or diuresis, just monitoring output and renal function. He has adequate urine output, and renal function improving overall. Urine studies suggesting prerenal azotemia, possible early kidney disease in settings of diabetes or chronic hypertension. ? Renally dose meds, avoid overdiuresis and NEPHROTOXINS ? Daily CMP Pneumonia, CAP versus aspiration Reactive leukocytosis Suspected bibasilar pneumonia on CXR from 04/04. Suspected aspiration given BiPAP use, although currently denies cough. Afebrile, leukocytosis likely reactive 2/2 STEROIDS. Repeat CXR 04/09 showed no pneumonia. Pancultures have all been negative. AZITHROMYCIN and ZOSYN were discontinued. ? Monitor closely Hepatomegaly Hyperbilirubinemia, direct Broad differential including: Gilbert syndrome, ineffective erythropoiesis, or hemolysis. CT showed hepatomegaly. Liver ultrasound showed borderline thickened gallbladder, again hepatomegaly, fatty infiltrate of the liver, no focal liver lesion. LFTs overall WNL. However, total bilirubin alternating between 1.5 and 4.5, and appears chronic. He denies abdominal pain. Low suspicion for cholangitis. Acute hepatitis panel was negative, although he is not immunized. ? Recommended outpatient GI workup for ? Recommended hepatitis B amputation series T2DM Relatively controlled, A1c 6.9 ? INSULIN sliding scale ? Accu-Cheks Electrolyte abnormalities ? Replete as needed Normocytic normochromic anemia (resolved) Hemoglobin stable. ? Daily labs #Health Maintenance Disposition: Telemetry DVT prophylaxis: SCDs GI prophylaxis: Protonix Diet: Cardiac CODE STATUS: Full Patient seen and care discussed with my attending physician, Dr. Amisha Harvey, PGY-2 Attending Provider Attestation/Addendum I attest that I was physically present for the evaluation, physical examination, lab and imaging review of the patient with the residents. I discussed the case with the residents and agree with the findings and plans of care as documented above. At bedside today, patient states he is feeling well and denies any new complaints. Continues to have pink urine in his urinal bag, with some sediments but no clot. Discussed with urology, recommended to continue monitoring closely, start patient on finasteride and obtain urine culture, appreciate recommendations. We will continue with Bustamante and monitor closely for further bleeding/clots. Continues to be on ciprofloxacin for bacteremia. Holding aspirin and Eliquis with concern for hematuria. Kidney function continues to improve, nephrology following closely, appreciate recommendations. We will continue with metoprolol for A-fib, currently rate controlled. Noted to have low magnesium, repleted accordingly. Bilirubin slowly uptrending, no right upper quadrant pain, we will monitor closely. Deana Lion MD
[2025-04-14] MEDS: FINASTERIDE 5 MG TABLET PO (17:22)
[2025-04-14] MEDS: ATORVASTATIN CALCIUM 20 MG TABLET 40 MG PO (20:40)
[2025-04-14] MEDS: METOPROLOL SUCCINATE XL 25 MG TABCR 100 MG PO (20:40)
[2025-04-14] MEDS: INSULIN GLARGINE (Lantus) 5 UNIT/0.05 ML (PER 5 UNITS) SC (20:41)
--- NOTE | 2025-04-14 23:52 | PD.VPROG1 ---
Telemedicine visit statement This visit was conducted with the use of phone was obtained on 04/14/25 at 2352. Documentation for date of: 04/14/25 Subjective Subjective Interval history: Patient is in telemetry. No new symptoms reported overnight. Using BiPAP at night. Virtual exam Vital Signs Temp Pulse Resp BP Pulse Ox O2 Del Method O2 Flow Rate 97.7 F 82 16 147/88 H 99 Nasal Cannula 4 04/14/25 20:00 04/14/25 22:18 04/14/25 22:18 04/14/25 20:40 04/14/25 22:18 04/14/25 20:00 04/14/25 22:18 FiO2 32 04/14/25 22:18 Objective Labs 04/15/25 04:47 04/15/25 04:47 Labs: Laboratory Results - last 24 hr 04/14/25 05:40 WBC 7.4 RBC 5.36 Hgb 14.5 Hct 49.2 MCV 92 MCH 27.1 MCHC 29.5 L RDW Std Deviation 52.2 H Plt Count 181 Neut % (Auto) 76 Lymph % (Auto) 10 [place] % (Auto) 10 Eos % (Auto) 4 Baso % (Auto) 1 Neut # (Auto) 5.6 Lymph # (Auto) 0.7 L [place] # (Auto) 0.7 Eos # (Auto) 0.3 Baso # (Auto) 0.0 Immature Gran # (Auto) 0.03 H Absolute Nucleated RBC 0.00 Immature Gran % 0 Nucleated RBC % 0 Sodium 144 Potassium 4.2 Chloride 101 Carbon Dioxide 36.0 H Anion Gap 7 BUN 35 H Creatinine 1.4 H Estim Creat Clear Calc 54.2 L eGFR 52 L BUN/Creatinine Ratio 25 H Glucose 140 H Calculated Osmolality 296 H Calcium 8.4 Corrected Calcium 8.7 Phosphorus 2.5 Magnesium 1.5 L Total Bilirubin 1.9 H AST 22 ALT 20 Alkaline Phosphatase 79 Total Protein 6.0 Albumin 3.6 Globulin 2.4 Albumin/Globulin Ratio 1.5 ABG Interpretation ABG results: 04/04/25 04/04/25 04/04/25 13:42 17:07 18:33 ABG pH 7.14 L* 7.20 L ABG pCO2 107 H* 111 H* ABG pO2 85 78 L ABG HCO3 36 H 39 H ABG O2 Saturation 94 92 ABG Base Excess 4 H 6 H VBG pH 7.48 VBG pCO2 50 VBG pO2 82 H VBG Base Excess 11 H 04/04/25 04/04/25 04/04/25 19:35 22:40 23:52 ABG pH 7.16 L* 7.59 H D 7.53 H ABG pCO2 113 H* 37 D 45 ABG pO2 53 L* D 194 H D 87 D ABG HCO3 40 H 36 H 37 H ABG O2 Saturation 78 L 101 H 99 H ABG Base Excess 7 H 13 H 13 H VBG pH VBG pCO2 VBG pO2 VBG Base Excess 04/05/25 04/05/25 04/05/25 01:20 04:52 13:02 ABG pH 7.52 H 7.47 H 7.30 L D ABG pCO2 47 50 H 74 H* D ABG pO2 60 L D 60 L 64 L ABG HCO3 38 H 37 H 37 H ABG O2 Saturation 94 93 89 L ABG Base Excess 13 H 11 H 7 H VBG pH VBG pCO2 VBG pO2 VBG Base Excess 04/06/25 04/07/25 04/09/25 03:55 10:54 04:42 ABG pH 7.36 7.50 H ABG pCO2 70 H 63 H ABG pO2 101 D 57 L* ABG HCO3 39 H 49 H ABG O2 Saturation 98 91 ABG Base Excess 10 H 21 H VBG pH 7.40 VBG pCO2 67 H D VBG pO2 76 H VBG Base Excess 13 H 04/09/25 04/09/25 04/09/25 06:25 13:10 22:47 ABG pH 7.52 H 7.47 H ABG pCO2 56 H 61 H ABG pO2 79 L D 62 L ABG HCO3 46 H 44 H ABG O2 Saturation 97 92 ABG Base Excess 19 H 16 H VBG pH 7.56 VBG pCO2 52 D VBG pO2 43 D VBG Base Excess 21 H 04/10/25 04/10/25 04/10/25 05:22 12:07 17:17 ABG pH 7.43 7.40 ABG pCO2 64 H 68 H ABG pO2 64 L 77 L ABG HCO3 43 H 42 H ABG O2 Saturation 92 95 ABG Base Excess 15 H 14 H VBG pH 7.55 VBG pCO2 45 VBG pO2 76 H D VBG Base Excess 15 H Assessment & Plan Assessment Acute encephalopathy, resolved Initial presentation: rapid response for altered mental status, found difficult to awaken, unresponsive to stimuli including sternal rubs. After several attempts, he was awakened, returned to baseline. Exam showed no focal neurological deficits. He was alert and oriented x 4 but did not recall the episode. No focal neuro deficit on exam today Lactic acid: 1.5 Lipid panel: Triglycerides 87 WNL, cholesterol 77 (low), LDL 39, HDL 21 (low) TSH: 1.35 WNL DDX: metabolic (hypoxic, hypercarbic, ), infectious (PNA), seizure Plan: - f/u EEG outpatient # Hx CVA # Right MANAGER WOMEN stenosis (90%) # Left MANAGER WOMEN stenosis (70%) 3 years ago, no residual deficits Home meds: ASA 81 mg daily, atorvastatin 40 mg daily MRI/MRA brain w/o: Negative for acute hemorrhage mass effect or midline shift. No acute infarct. 90% stenosis Right MANAGER WOMEN junction P1 P2 segments 03/15/23 MRI/MRA brain w/o : 90% plus stenosis right posterior cerebral artery junction P1 P2 segments, 70% stenosis Left MANAGER WOMEN P1 segment Carotid Doppler: Right internal carotid artery demonstrates 0-10% stenosis. Left internal carotid artery demonstrates 0-10% stenosis. Plan: - Continue high-intensity statin (ASCVD 33.5% risk of cardiovascular event in next 10 years) - Continue home ASA 81 mg
[2025-04-15] VITALS (13 sets, daily range): BP systolic 134–158; BP diastolic 78–99; PULSE 63–333; RESP 12–23; TEMP 36.1–36.8; O2SAT 94–99; BMI 35.1
--- NOTE | 2025-04-15 00:05 | PC.NURSE ---
DR. DAMICO CALLED IN FOR UPDATE. ALL QUESTIONS ANSWERED.
[2025-04-15 05:14] LABS: Basophils # (Auto) 0.1 Thou/mm3 (0.0-0.2); Basophils % (Auto) 1 % (0-2.5); Eosinophils # (Auto) 0.3 Thou/mm3 (0.0-0.5); Eosinophils % (Auto) 4 % (0-10); Hematocrit 47.2 % (41.0-53.0); Hemoglobin 13.8 g/dL (13.5-16.0); Immature Granulocytes Auto 0.02 Thou/mm3 (0.00-0.00); Lymphocytes # (Auto) 1.0 Thou/mm3 (1.0-4.8); Lymphocytes % (Auto) 13 % (10-50); Mean Corpuscular HGB Conc 29.2 g/dl (31.0-37.0); Mean Corpuscular Hemoglobin 26.4 pg (25.0-35.0); Mean Corpuscular Volume 90 fL (80-100); Monocytes # (Auto) 0.7 Thou/mm3 (0.0-0.8); Monocytes % (Auto) 9 % (0-12); Neutrophils # (Auto) 5.5 Thou/mm3 (1.8-7.7); Neutrophils % (Auto) 73 % (37-80); Nucleated Red Blood Cell # 0.00 Thou/mm3 (0.00-0.00); Nucleated Red Blood Cell % 0 /100 WBC (0); Platelet Count 179 Thou/mm3 (140-440); RDW Standard Deviation 51.1 fL (35.1-43.9); Red Blood Count 5.22 Miln/mm3 (4.50-5.90); White Blood Count 7.5 Thou/mm3 (3.8-10.6)
[2025-04-15 06:04] LABS: Alanine Aminotransferase 21 U/L (10-49); Albumin, Serum 3.4 gm/dL (3.4-4.8); Albumin/Globulin Ratio 1.4 (1.2-2.2); Alkaline Phosphatase 80 U/L (46-116); Anion Gap 9 (7-16); Aspartate Amino Transferase 22 U/L (0-34); BUN/Creatinine Ratio 25 Ratio (12-20); Bilirubin,Total 1.8 mg/dL (0.3-1.2); Blood Urea Nitrogen 28 mg/dL (9-23); Calcium 8.5 mg/dL (8.3-10.6); Calcium (Corrected) 9.0 mg/dL (8.5-10.1); Carbon Dioxide 34.1 mMol/L (20.0-31.0); Chloride 101 mMol/L (98-107); Creatinine (Component) 1.1 mg/dL (0.6-1.3); Estimated Creatinine Clearance 68.9 mL/min (>60); Globulin 2.5 gm/dL (2.3-3.5); Glucose 139 mg/dL (74-106); Magnesium 1.8 mg/dL (1.6-2.6); Osmolality,Calculated 294 (275-295); Phosphorous 2.5 mg/dL (2.4-5.1); Potassium 3.9 mMol/L (3.4-5.1); Sodium 144 mMol/L (136-145); Total Protein 5.9 gm/dL (5.7-8.2); eGFR > 60 See Note
[2025-04-15] MEDS: IPRATROPIUM RT 0.5 MG/ 2.5 ML NEBU INH ×3 (06:45→22:42)
[2025-04-15] MEDS: LEVALBUTEROL RT 1.25 MG/0.5 ML NEBU INH ×3 (06:45→22:42)
--- NOTE | 2025-04-15 07:17 | PD.RESPRO ---
Documentation for date of: 04/15/25 Subjective Subjective Interval history: Kade Dlaal is a 74-year-old male with PMHx of A-fib on ELIQUIS, HTN, T2DM, MOUNIKA/OHS, chronic respiratory failure, on home 2-3 L oxygen, admitted for volume overload requiring intubation and aggressive diuresis and SOB. Echo showed EF 65% with diastolic dysfunction. He has been on diuresis since. With a total of 9 L fluid removed. Overall oxygen demand improved from baseline, currently on 1 L NC. Continued on BiPAP HS. Patient received 500 cc NS x2 after worsening contraction alkalosis was shown on chem panel and vbg/abg. Cardiology is considering DIAMOX if CO2 remains elevated. Nephrology is consulted in for KAI likely due to prerenal azotemia secondary to over-diuresis. 04/10/2025 Patient was seen and examined. No acute events overnight. Patient is resting in bed and does not have any complaints or concerns. Patient states that he has been using the bipap machine at night even though at home he has not been taking it as much. Patient endorses making urine yesterday, but not any today, and passing stool. Patient denies having history of being unable to make urine in the past. Patient denies fatigue, dizziness, weakness, chest pain, shortness of breath, abdominal pain, dysuria. 04/11/2025 Patient had a rapid called yesterday evening for altered mental status, was found difficult to awaken, eventually became a&o x4 after multiple sternal rubs and returning back to baseline. This morning patient was doing well, vital signs stable, no new concerns/complaints. Patient denies fever, chest pain, shortness of breath. Patient's has been making urine, 1800 ml last 24 hr. Patient's moss bag appeared very dark in color this morning, maybe from traumatic insertion, will continue to monitor; will be given more IV fluids today. 04/12/2025 No acute events overnight. Patient has been making dark urine. Patient was not on fluids overnight, had improved creatinine levels this morning. Patient this morning does not have any new complaints or concerns. Patient denies having any fever, chest pain, shortness of breath. 04/13/2025 No acute events overnight. Patient continues to make dark red urine. Patient's creatinine continues to improve (1.7 today). Patient had bladder irrigation yesterday, discontinuing today. Patient this morning does not have any new complaints or concerns. Patient denies having any fever, chest pain, shortness of breath. 04/14/2025 No acute events overnight. Patient continues to make dark red urine. Patient's creatinine continues to improve (1.4 today). Patient this morning does not have any new complaints or concerns. Patient denies having any fever, chest pain, shortness of breath. 04/15/25 Patient seen and examined at bedside. No new complaints. Denies chest pain, SOB or fever. Greatly improved hematuria in moss with good urine output. Cr continues to improve 1.1 today. Exam Vital Signs Temp Pulse Resp BP Pulse Ox O2 Del Method O2 Flow Rate 98.3 F 70 18 138/90 H 95 BiPAP 4 04/15/25 04:00 04/15/25 06:46 04/15/25 06:46 04/15/25 04:00 04/15/25 06:46 04/15/25 04:00 04/15/25 06:46 FiO2 32 04/15/25 06:46 Narrative Exam Gen: alert and oriented x3, NAD, vitals reviewed Head/Neck: NCAT, no gross LAD ENT: EOMI grossly, anicteric sclerae, mmm Resp: Lungs CTAB, normal respiratory effort CV: regular rhythm, regular rate; extremities well perfused GI: no distension; no tenderness, normal bowel sounds present Ext: no clubbing, cyanosis. no Lower extremity edema Skin: chronic venous stasis, no new rash or lesions on visual exam Neuro/MSK: moves all extremities Psych: normal mood; appropriate affect Objective Labs 04/15/25 04:47 04/15/25 04:47 Labs: Laboratory Results - last 24 hr 04/15/25 04:47 WBC 7.5 RBC 5.22 Hgb 13.8 Hct 47.2 MCV 90 MCH 26.4 MCHC 29.2 L RDW Std Deviation 51.1 H Plt Count 179 Neut % (Auto) 73 Lymph % (Auto) 13 [place] % (Auto) 9 Eos % (Auto) 4 Baso % (Auto) 1 Neut # (Auto) 5.5 Lymph # (Auto) 1.0 [place] # (Auto) 0.7 Eos # (Auto) 0.3 Baso # (Auto) 0.1 Immature Gran # (Auto) 0.02 H Absolute Nucleated RBC 0.00 Immature Gran % 0 Nucleated RBC % 0 Sodium 144 Potassium 3.9 Chloride 101 Carbon Dioxide 34.1 H Anion Gap 9 BUN 28 H Creatinine 1.1 Estim Creat Clear Calc 68.9 eGFR > 60 BUN/Creatinine Ratio 25 H Glucose 139 H Calculated Osmolality 294 Calcium 8.5 Corrected Calcium 9.0 Phosphorus 2.5 Magnesium 1.8 Total Bilirubin 1.8 H AST 22 ALT 21 Alkaline Phosphatase 80 Total Protein 5.9 Albumin 3.4 Globulin 2.5 Albumin/Globulin Ratio 1.4 ABG Interpretation ABG results: 04/04/25 04/04/25 04/04/25 13:42 17:07 18:33 ABG pH 7.14 L* 7.20 L ABG pCO2 107 H* 111 H* ABG pO2 85 78 L ABG HCO3 36 H 39 H ABG O2 Saturation 94 92 ABG Base Excess 4 H 6 H VBG pH 7.48 VBG pCO2 50 VBG pO2 82 H VBG Base Excess 11 H 04/04/25 04/04/25 04/04/25 19:35 22:40 23:52 ABG pH 7.16 L* 7.59 H D 7.53 H ABG pCO2 113 H* 37 D 45 ABG pO2 53 L* D 194 H D 87 D ABG HCO3 40 H 36 H 37 H ABG O2 Saturation 78 L 101 H 99 H ABG Base Excess 7 H 13 H 13 H VBG pH VBG pCO2 VBG pO2 VBG Base Excess 04/05/25 04/05/25 04/05/25 01:20 04:52 13:02 ABG pH 7.52 H 7.47 H 7.30 L D ABG pCO2 47 50 H 74 H* D ABG pO2 60 L D 60 L 64 L ABG HCO3 38 H 37 H 37 H ABG O2 Saturation 94 93 89 L ABG Base Excess 13 H 11 H 7 H VBG pH VBG pCO2 VBG pO2 VBG Base Excess 04/06/25 04/07/25 04/09/25 03:55 10:54 04:42 ABG pH 7.36 7.50 H ABG pCO2 70 H 63 H ABG pO2 101 D 57 L* ABG HCO3 39 H 49 H ABG O2 Saturation 98 91 ABG Base Excess 10 H 21 H VBG pH 7.40 VBG pCO2 67 H D VBG pO2 76 H VBG Base Excess 13 H 04/09/25 04/09/25 04/09/25 06:25 13:10 22:47 ABG pH 7.52 H 7.47 H ABG pCO2 56 H 61 H ABG pO2 79 L D 62 L ABG HCO3 46 H 44 H ABG O2 Saturation 97 92 ABG Base Excess 19 H 16 H VBG pH 7.56 VBG pCO2 52 D VBG pO2 43 D VBG Base Excess 21 H 04/10/25 04/10/25 04/10/25 05:22 12:07 17:17 ABG pH 7.43 7.40 ABG pCO2 64 H 68 H ABG pO2 64 L 77 L ABG HCO3 43 H 42 H ABG O2 Saturation 92 95 ABG Base Excess 15 H 14 H VBG pH 7.55 VBG pCO2 45 VBG pO2 76 H D VBG Base Excess 15 H Quality Measures Quality Measures VTE prophylaxis Advance care planning discussed with:: patient Assessment & Plan Assessment Current Active Medications: Generic Name Dose Route Start Last Admin Trade Name Freq PRN Reason Stop Dose Admin Acetaminophen 650 mg 04/04/25 17:27 Acetaminophen 325 Mg Tablet PO 05/04/25 17:26 Q6H PRN Fever >100 or pain 1-3 Apixaban 5 mg 04/07/25 21:00 04/13/25 08:24 Apixaban 2.5 Mg Tablet PO 05/07/25 20:59 5 mg BID JOSELUIS Administration Atorvastatin Calcium 40 mg 04/07/25 21:00 04/14/25 20:40 Atorvastatin Calcium 20 Mg Tablet PO 05/07/25 20:59 40 mg HS JOSELUIS Administration Ciprofloxacin 500 mg 04/13/25 21:00 04/14/25 20:41 Ciprofloxacin Hcl 250 Mg Tablet PO 04/20/25 20:59 500 mg BID JOSELUIS Administration Alfuzosin Er 10 Mg 0 ea 04/11/25 13:45 04/14/25 09:29 Tablet PO 05/11/25 13:44 1 tablet QDAY JOSELUIS Administration Dextrose 25 ml 04/04/25 17:38 Dextrose 50%-Water Inj 50 Ml Syringe IV 05/04/25 17:37 Q15MIN PRN BG 50-70 responsive npo pt Dextrose 50 ml 04/04/25 17:38 Dextrose 50%-Water Inj 50 Ml Syringe IV 05/04/25 17:37 Q15MIN PRN BG <50 OR BG <70 & pt unresponsive Finasteride 5 mg 04/14/25 16:15 04/14/25 17:22 Finasteride 5 Mg Tablet PO 05/14/25 16:14 5 mg QDAY JOSELUIS Administration Glucagon 1 mg 04/04/25 17:38 Glucagon Inj 1 Mg Vial IM Q15MIN PRN BG <70, and no IV access Insulin Glargine 5 unit 04/06/25 21:00 04/14/25 20:41 Insulin Glargine (Lantus) 5 Unit/0.05 Ml (Per 5 Units) SC 05/06/25 20:59 5 unit HS JOSELUIS Administration Insulin Human Lispro 0 unit 04/07/25 07:30 04/14/25 22:23 Insulin Lispro (Admelog) 1 Unit/0.01 Ml Unit SC 05/07/25 07:29 Not Given ACHS JOSELUIS Protocol Ipratropium [place] 0.5 mg 04/07/25 07:45 04/15/25 06:45 Ipratropium Rt 0.5 Mg/ 2.5 Ml Nebu INH 05/07/25 07:44 0.5 mg Q8HRRT JOSELUIS Administration Levalbuterol HCl 1.25 mg 04/07/25 07:45 04/15/25 06:45 Levalbuterol Rt 1.25 Mg/0.5 Ml Nebu INH 05/07/25 07:44 1.25 mg Q8HRRT JOSELUIS Administration Metoprolol Succinate 100 mg 04/06/25 21:00 04/14/25 20:40 Metoprolol Succinate Xl 25 Mg Tabcr PO 05/06/25 20:59 100 mg HS JOSELUIS Administration Ondansetron HCl 4 mg 04/04/25 17:32 Ondansetron Inj 2 Mg/Ml Inj 2 Ml IVP 05/04/25 17:31 Q6H PRN NAUSEA OR VOMITING Protocol Pantoprazole Sodium 40 mg 04/10/25 09:00 04/14/25 09:29 Pantoprazole 40 Mg Tablet PO 05/10/25 08:59 40 mg QDAY JOSELUIS Administration Protocol Sodium Chloride 3 ml 04/04/25 17:27 Sodium Chloride Rt Zo 0.9% 3 Ml Nebu INH 05/04/25 17:26 PRN PRN SOLN Plan 74-year-old male with PMHx of A-fib on ELIQUIS, HTN, T2DM, MOUNIKA/OHS, chronic respiratory failure, on home 2-3 L oxygen, presented with shortness of breath. Admitted for volume overload requiring intubation and aggressive diuresis. Subsequently extubated successfully, but has worsening hypercapnic respiratory failure. Nephrology consulted for management of . # Acute Kidney Injury, resolving Likely ATN with Cr now improving (at 1.4 currently) vs potential obstructive etiology; Patient initially noted to have with current Cr 3.0 (over baseline ~1.0). Suspect pre-renal due to over-diuresis in context of chf exacerbation vs obstructive (CT AP shows: Massive prostatomegaly causing mild bilateral hydronephrosis and early wall thickening in the urinary bladder). Holding fluids due to patient's volume status appearing full. Denies dizziness, weakness. Patient UOP 2300 ml last 24 hrs. Much improved hematuria in Moss bag - Cr improved 3.1->2.2->1.7->1.4->1.1 - renally dose medications - hold nephrotoxic meds -Urology consulted, recs appreciated -Will most likely need to discharge to SNF/rehab placement Acute metabolic encephalopathy Acute on chronic hypercapnic respiratory failure Contraction alkalosis with appropriate respiratory compensation CHF exacerbation MOUNIKA, OHS Fluid overload status (resolved) Tachycardia A-fib HTN HLD Pneumonia, CAP versus aspiration Reactive leukocytosis Hepatomegaly Hyperbilirubinemia, direct Normocytic normochromic anemia Hematuria T2DM Hx of CVA. Electrolyte abnormalities Above problems Medically managed through the primary team Thank you for allowing us to take part in the care of Mr. Dalal Plan of care discussed with attending, Dr. Jorgito Perez, DO Internal Medicine PGY-1 Attending Provider Attestation/Addendum Patient seen and examined with resident physician Dr. Perez. Note reviewed, agree with findings and recommendations. Clinically patient looks rather dehydrated. Hemoglobin 16.9. Patient seems to be sleepy when I examined him. Could not get much information. Spoke to sister. Hold off on diuretics. Give 1 L IV fluids with close monitoring of urinary output and creatinine. Plan of care discussed with Sister Wendy at bedside. 04/15/2025 patient currently seen in telemetry. Patient currently on Nasal canula. Hematuria improved. Creatinine improved. Off diuretics. Hold off on fluids for now. Clinically looks euvolemic. Spoke to PCP- agree with urology consultation for recurrent hematuria.
[2025-04-15] MEDS: ALFUZOSIN ER 10 MG TABLET PO (08:51)
[2025-04-15] MEDS: FINASTERIDE 5 MG TABLET PO (08:52)
[2025-04-15] MEDS: CIPROFLOXACIN HCL 250 MG TABLET 500 MG PO (08:52)
[2025-04-15] MEDS: PANTOPRAZOLE 40 MG TABLET PO (08:53)
[2025-04-15] MEDS: Magnesium Sulfate 2 GM Ivpb 2 GM/50 ML BAG IV (08:53)
[2025-04-15] MEDS: INSULIN LISPRO (AdmeLOG) 1 UNIT/0.01 ML UNIT SC ×2 (12:09→20:37)
--- NOTE | 2025-04-15 15:17 | ESPR_ITS ---
Documentation for date of: 04/15/25 Subjective Subjective Interval history: No acute overnight events. Overall mentation stable. Denies new or worsening symptoms. Denies fever, chills, headaches, chest pain, sob, cough, GI or urinary symptoms. Exam Vital Signs Temp Pulse Resp BP Pulse Ox O2 Del Method O2 Flow Rate 97.2 F 82 19 146/90 H 99 Nasal Cannula 3 04/15/25 12:00 04/15/25 14:38 04/15/25 14:38 04/15/25 12:00 04/15/25 14:38 04/15/25 12:00 04/15/25 14:38 FiO2 32 04/15/25 12:00 Narrative Exam Gen: alert and oriented x3, NAD, vitals reviewed Head/Neck: NCAT, no gross LAD ENT: EOMI grossly, anicteric sclerae, mmm Resp: Lungs CTAB, normal respiratory effort, symmetric chest rise CV: regular rhythm, regular rate; extremities well perfused GI: distended; no tenderness, normal bowel sounds present : Bustamante present, gross hematuria present Ext: no clubbing, cyanosis. Trace LE edema bilaterally Skin: chronic venous stasis, no new rash or lesions on visual exam Neuro/MSK: moves all extremities Psych: normal mood; appropriate affect Objective Labs 04/15/25 04:47 04/15/25 04:47 Labs: Laboratory Results - last 24 hr 04/15/25 04:47 WBC 7.5 RBC 5.22 Hgb 13.8 Hct 47.2 MCV 90 MCH 26.4 MCHC 29.2 L RDW Std Deviation 51.1 H Plt Count 179 Neut % (Auto) 73 Lymph % (Auto) 13 [place] % (Auto) 9 Eos % (Auto) 4 Baso % (Auto) 1 Neut # (Auto) 5.5 Lymph # (Auto) 1.0 [place] # (Auto) 0.7 Eos # (Auto) 0.3 Baso # (Auto) 0.1 Immature Gran # (Auto) 0.02 H Absolute Nucleated RBC 0.00 Immature Gran % 0 Nucleated RBC % 0 Sodium 144 Potassium 3.9 Chloride 101 Carbon Dioxide 34.1 H Anion Gap 9 BUN 28 H Creatinine 1.1 Estim Creat Clear Calc 68.9 eGFR > 60 BUN/Creatinine Ratio 25 H Glucose 139 H Calculated Osmolality 294 Calcium 8.5 Corrected Calcium 9.0 Phosphorus 2.5 Magnesium 1.8 Total Bilirubin 1.8 H AST 22 ALT 21 Alkaline Phosphatase 80 Total Protein 5.9 Albumin 3.4 Globulin 2.5 Albumin/Globulin Ratio 1.4 ABG Interpretation ABG results: 04/04/25 04/04/25 04/04/25 13:42 17:07 18:33 ABG pH 7.14 L* 7.20 L ABG pCO2 107 H* 111 H* ABG pO2 85 78 L ABG HCO3 36 H 39 H ABG O2 Saturation 94 92 ABG Base Excess 4 H 6 H VBG pH 7.48 VBG pCO2 50 VBG pO2 82 H VBG Base Excess 11 H 04/04/25 04/04/25 04/04/25 19:35 22:40 23:52 ABG pH 7.16 L* 7.59 H D 7.53 H ABG pCO2 113 H* 37 D 45 ABG pO2 53 L* D 194 H D 87 D ABG HCO3 40 H 36 H 37 H ABG O2 Saturation 78 L 101 H 99 H ABG Base Excess 7 H 13 H 13 H VBG pH VBG pCO2 VBG pO2 VBG Base Excess 04/05/25 04/05/25 04/05/25 01:20 04:52 13:02 ABG pH 7.52 H 7.47 H 7.30 L D ABG pCO2 47 50 H 74 H* D ABG pO2 60 L D 60 L 64 L ABG HCO3 38 H 37 H 37 H ABG O2 Saturation 94 93 89 L ABG Base Excess 13 H 11 H 7 H VBG pH VBG pCO2 VBG pO2 VBG Base Excess 04/06/25 04/07/25 04/09/25 03:55 10:54 04:42 ABG pH 7.36 7.50 H ABG pCO2 70 H 63 H ABG pO2 101 D 57 L* ABG HCO3 39 H 49 H ABG O2 Saturation 98 91 ABG Base Excess 10 H 21 H VBG pH 7.40 VBG pCO2 67 H D VBG pO2 76 H VBG Base Excess 13 H 04/09/25 04/09/25 04/09/25 06:25 13:10 22:47 ABG pH 7.52 H 7.47 H ABG pCO2 56 H 61 H ABG pO2 79 L D 62 L ABG HCO3 46 H 44 H ABG O2 Saturation 97 92 ABG Base Excess 19 H 16 H VBG pH 7.56 VBG pCO2 52 D VBG pO2 43 D VBG Base Excess 21 H 04/10/25 04/10/25 04/10/25 05:22 12:07 17:17 ABG pH 7.43 7.40 ABG pCO2 64 H 68 H ABG pO2 64 L 77 L ABG HCO3 43 H 42 H ABG O2 Saturation 92 95 ABG Base Excess 15 H 14 H VBG pH 7.55 VBG pCO2 45 VBG pO2 76 H D VBG Base Excess 15 H Quality Measures Quality Measures VTE prophylaxis Advance care planning discussed with:: patient Assessment & Plan Assessment Current Active Medications: Generic Name Dose Route Start Last Admin Trade Name Freq PRN Reason Stop Dose Admin Acetaminophen 650 mg 04/04/25 17:27 Acetaminophen 325 Mg Tablet PO 05/04/25 17:26 Q6H PRN Fever >100 or pain 1-3 Apixaban 5 mg 04/07/25 21:00 04/13/25 08:24 Apixaban 2.5 Mg Tablet PO 05/07/25 20:59 5 mg BID JOSELUIS Administration Atorvastatin Calcium 40 mg 04/07/25 21:00 04/14/25 20:40 Atorvastatin Calcium 20 Mg Tablet PO 05/07/25 20:59 40 mg HS JOSELUIS Administration Ciprofloxacin 500 mg 04/13/25 21:00 04/15/25 08:52 Ciprofloxacin Hcl 250 Mg Tablet PO 04/20/25 20:59 500 mg BID JOSELUIS Administration Alfuzosin Er 10 Mg 0 ea 04/11/25 13:45 04/15/25 08:51 Tablet PO 05/11/25 13:44 1 tablet QDAY JOSELUIS Administration Dextrose 25 ml 04/04/25 17:38 Dextrose 50%-Water Inj 50 Ml Syringe IV 05/04/25 17:37 Q15MIN PRN BG 50-70 responsive npo pt Dextrose 50 ml 04/04/25 17:38 Dextrose 50%-Water Inj 50 Ml Syringe IV 05/04/25 17:37 Q15MIN PRN BG <50 OR BG <70 & pt unresponsive Finasteride 5 mg 04/14/25 16:15 04/15/25 08:52 Finasteride 5 Mg Tablet PO 05/14/25 16:14 5 mg QDAY JOSELUIS Administration Glucagon 1 mg 04/04/25 17:38 Glucagon Inj 1 Mg Vial IM Q15MIN PRN BG <70, and no IV access Insulin Glargine 5 unit 04/06/25 21:00 04/14/25 20:41 Insulin Glargine (Lantus) 5 Unit/0.05 Ml (Per 5 Units) SC 05/06/25 20:59 5 unit HS JOSELUIS Administration Insulin Human Lispro 0 unit 04/07/25 07:30 04/15/25 12:09 Insulin Lispro (Admelog) 1 Unit/0.01 Ml Unit SC 05/07/25 07:29 1 unit ACHS JOSELUIS Administration Protocol Ipratropium [place] 0.5 mg 04/07/25 07:45 04/15/25 14:38 Ipratropium Rt 0.5 Mg/ 2.5 Ml Nebu INH 05/07/25 07:44 0.5 mg Q8HRRT JOSELUIS Administration Levalbuterol HCl 1.25 mg 04/07/25 07:45 04/15/25 14:38 Levalbuterol Rt 1.25 Mg/0.5 Ml Nebu INH 05/07/25 07:44 1.25 mg Q8HRRT JOSELUIS Administration Metoprolol Succinate 100 mg 04/06/25 21:00 04/14/25 20:40 Metoprolol Succinate Xl 25 Mg Tabcr PO 05/06/25 20:59 100 mg HS JOSELUIS Administration Ondansetron HCl 4 mg 04/04/25 17:32 Ondansetron Inj 2 Mg/Ml Inj 2 Ml IVP 05/04/25 17:31 Q6H PRN NAUSEA OR VOMITING Protocol Pantoprazole Sodium 40 mg 04/10/25 09:00 04/15/25 08:53 Pantoprazole 40 Mg Tablet PO 05/10/25 08:59 40 mg QDAY JOSELUIS Administration Protocol Sodium Chloride 3 ml 04/04/25 17:27 Sodium Chloride Rt Zo 0.9% 3 Ml Nebu INH 05/04/25 17:26 PRN PRN SOLN Plan 74-year-old male with PMHx of A-fib on ELIQUIS, HTN, T2DM, MOUNIKA/OHS, chronic respiratory failure, on home 2-3 L oxygen, presented with shortness of breath. Admitted for volume overload requiring intubation and aggressive diuresis. Subsequently extubated successfully, but has worsening hypercapnic respiratory failure. Gross Hematuria Asymptomatic pyuria Bilateral hydronephrosis Massive prostamegaly Bustamante showing dark urine, UA showed dark red urine, cloudy, 3+ blood, 1+ protein, LE positive, 3954 RBCs, 426 WBC. Given acute spikes in WBC. Will treat for UTI, although he is asymptomatic. Per chart review, hematuria appears chronic. He was on bladder irrigation overnight, with persistent hematuria. We have consulted urology. ELIQUIS has been held. Hemoglobin otherwise WNL. UA negative for UTI, afebrile, no leukocytosis. Urine culture pending. Stopped CBI, have attempted to get in contact with urology, however have not been able to Will continue to try to speak with urology and also will speak with nephrology +3 blood and ~4000 RBCs in Urinanalysis Pt would benefit from cytoscopy to evaluate gross hematuria Plan: CT abdomen was ordered to rule out malignancy-related pneumaturia which showed bilateral mild hydronephrosis secondary to massive enlarged prostate. ? Continue CIPROFLOXACIN (04/11 to present) ? Continue home ALFUZOSIN ? 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 As stated previously, a few days ago, he had a RR for acute AMS where he was found unresponsive to painful stimuli. At the time MRI was done showing 90% stenosis of the posterior right cerebral artery junction at the P1?P2 segments. This high suspicion for recurrent TIA, likely resulting in central apnea, possible leading to irregular or ataxic breathing, which in his case would explain below findings. Per family patient had stroke 3 years ago, no residual deficit, head CT unremarkable. Carotid ultrasound showed no significant stenosis bilaterally. No recurrence of episodes. ? Continue ATORVASTATIN ? Holding ASPIRIN in settings of hematuria ? Neurology recommended outpatient follow-up, vascular surgery Acute metabolic encephalopathy (resolved) Acute on chronic hypercapnic respiratory failure (resolved) Contraction alkalosis with appropriate respiratory compensation (improving) CHF exacerbation (resolved) Likely central sleep apnea, MOUNIKA, OHS Fluid overload status (resolved) Presented with volume overload and SOB, echo showed EF 65% with diastolic dysfunction. He has been on diuresis since. With a total of 9 L fluid removed. Overall oxygen demand improved from baseline, currently on 1 L NC. Continued on BiPAP HS. However this morning she was found acutely mildly encephalopathic, likely hypercapnia. Blood gas showed contraction alkalosis, compensation respiratory acidosis. Diuresis was held, and he continued on BiPAP intermittently and HS. CO2 improving overall. However mentation still waxing and waning, now higher suspicion for TIA as stated above. ? Maintain K > 4.0 and Mg > 2.0 ? Continue METOPROLOL succinate 100 mg HS ? Holding diuresis to prevent contraction alkalosis ? Continue BiPAP HS and intermittently throughout the day ? Trilogy has been approved and available on discharge Tachycardia (resolved) A-fib, rate controlled CHADVASC2:6 HASBLED: 3 History of A-fib, admission EKG showed A-fib with HR 88. New onset tachycardia, likely 2/2 beta agonist, or reactive to volume loss. Although high risk for RVR given recurrent tachycardia. Overnight had an episode of HR 123 was resolved after METOPROLOL x 1. ? Continue METOPROLOL as above ? HOLDING ELIQUIS 5 mg BID in settings of hematuria ? Maintain K > 4.0 and Mg > 2.0 ? Pending further recommendation from cardiology HTN HLD Currently normotensive with METOPROLOL as above. ? Unable to resume home HCTZ and LOSARTAN 2/2 ? Continue home ATORVASTATIN Prerenal azotemia (improving) Baseline CR 1.1. Has new with CR 1.4 > 1.7, likely 2/2 volume loss 2/2 diuresis. We have repleted with 1 L NS, and withheld diuresis for now. Nephrology on board, recommended no fluids or diuresis, just monitoring output and renal function. He has adequate urine output, and renal function improving overall. Urine studies suggesting prerenal azotemia, possible early kidney disease in settings of diabetes or chronic hypertension. ? Renally dose meds, avoid overdiuresis and NEPHROTOXINS ? Daily CMP Pneumonia, CAP versus aspiration Reactive leukocytosis Suspected bibasilar pneumonia on CXR from 04/04. Suspected aspiration given BiPAP use, although currently denies cough. Afebrile, leukocytosis likely reactive 2/2 STEROIDS. Repeat CXR 04/09 showed no pneumonia. Pancultures have all been negative. AZITHROMYCIN and ZOSYN were discontinued. ? Monitor closely Hepatomegaly Hyperbilirubinemia, direct Broad differential including: Gilbert syndrome, ineffective erythropoiesis, or hemolysis. CT showed hepatomegaly. Liver ultrasound showed borderline thickened gallbladder, again hepatomegaly, fatty infiltrate of the liver, no focal liver lesion. LFTs overall WNL. However, total bilirubin alternating between 1.5 and 4.5, and appears chronic. He denies abdominal pain. Low suspicion for cholangitis. Acute hepatitis panel was negative, although he is not immunized. ? Recommended outpatient GI workup for ? Recommended hepatitis B amputation series T2DM Relatively controlled, A1c 6.9 ? INSULIN sliding scale ? Accu-Cheks Electrolyte abnormalities ? Replete as needed Normocytic normochromic anemia (resolved) Hemoglobin stable. ? Daily labs #Health Maintenance Disposition: Telemetry DVT prophylaxis: SCDs GI prophylaxis: Protonix Diet: Cardiac CODE STATUS: Full Case was discussed with attending physician. Vijay Bess DO PGY II This document was transcribed using voice recognition technology. Minor inaccuracies may be present. Attending Provider Attestation/Addendum I attest that I was physically present for the evaluation, physical examination, lab and imaging review of the patient with the residents. I discussed the case with the residents and agree with the findings and plans of care as documented above. At bedside today, patient states she is feeling well and denies any new complaints. Appears comfortable. Kidney functions continues to improve. Hemoglobin is slightly decreased compared to yesterday, 13.5 today. Continues to have pink urine in his urinary bag, does not have any clots or sediments. Completed his antibiotics course. Continues to be on alfuzosin and finasteride. Awaiting urology recommendations. Deana Lion MD
--- NOTE | 2025-04-15 17:44 | PD.RESPRO ---
Documentation for date of: 04/15/25 Subjective Subjective Interval history: Patient is seen and examined at the bedside. No acute overnight events. Denies any other complaints. Vitals are stable. CBC at baseline. CMP revealed improvement in creatinine with creatinine 1.1, BUN 28. Pt was having clot on urine, suggestive of obstructive uropathy rather than over diuresis. Creatinine improved to 1.1 Negative by ~ 10L since admission with diuresis initially TTE was significant for diastolic dysfunction, but unable to grade because of atrial fibrillation, LVEF 60 to 65%. Repleted with 2gm of magnesium Recommended to further evaluate urine protein level, as it was 2+. Dark clots were suspected in the urine on 04/11/25 and was placed on saline bladder irrigation, discontinued on 04/13/2025 Aspirin 81 Mg daily, Eliquis 5 Mg twice daily (hold due to hematuria), metoprolol succinate 100 Mg daily and atorvastatin 40 Mg daily at night to maintain LDL level less than 55 in the setting of past medical history of hypertension, diabetes mellitus and stroke. Atorvastatin 40 Mg daily at night. Metoprolol succinate 100 Mg daily. During discharge, patient should be placed on 40 mg Lasix daily and follow-up with toxicology supervisor Dr. Toney after 1 week of discharge. Exam Vital Signs Temp Pulse Resp BP Pulse Ox O2 Del Method O2 Flow Rate 97.0 F 85 16 143/78 H 96 Nasal Cannula 4.5 04/15/25 16:00 04/15/25 16:00 04/15/25 16:00 04/15/25 16:00 04/15/25 16:00 04/15/25 16:00 04/15/25 16:00 FiO2 32 04/15/25 12:00 Narrative Exam General: Awake. HEENT: Normocephalic, atraumatic, mucous membranes moist. Heart: Regular rate and rhythm, no murmurs. Lungs: Clear to auscultation with no wheezing or crackles. Abdomen: Soft, nondistended, nontender, positive bowel sounds. ?No guarding or rebound tenderness. noted reddish discoloration of urine without hematuria. Neurologic: Alert and oriented x3, no gross neurological deficit, and patient able to move all 4 extremities. Extremities: No edema. Skin: No rash or ecchymoses. Objective Labs 04/15/25 04:47 04/15/25 04:47 Labs: Laboratory Results - last 24 hr 04/15/25 04:47 WBC 7.5 RBC 5.22 Hgb 13.8 Hct 47.2 MCV 90 MCH 26.4 MCHC 29.2 L RDW Std Deviation 51.1 H Plt Count 179 Neut % (Auto) 73 Lymph % (Auto) 13 Rogers % (Auto) 9 Eos % (Auto) 4 Baso % (Auto) 1 Neut # (Auto) 5.5 Lymph # (Auto) 1.0 Rogers # (Auto) 0.7 Eos # (Auto) 0.3 Baso # (Auto) 0.1 Immature Gran # (Auto) 0.02 H Absolute Nucleated RBC 0.00 Immature Gran % 0 Nucleated RBC % 0 Sodium 144 Potassium 3.9 Chloride 101 Carbon Dioxide 34.1 H Anion Gap 9 BUN 28 H Creatinine 1.1 Estim Creat Clear Calc 68.9 eGFR > 60 BUN/Creatinine Ratio 25 H Glucose 139 H Calculated Osmolality 294 Calcium 8.5 Corrected Calcium 9.0 Phosphorus 2.5 Magnesium 1.8 Total Bilirubin 1.8 H AST 22 ALT 21 Alkaline Phosphatase 80 Total Protein 5.9 Albumin 3.4 Globulin 2.5 Albumin/Globulin Ratio 1.4 ABG Interpretation ABG results: 04/04/25 04/04/25 04/04/25 13:42 17:07 18:33 ABG pH 7.14 L* 7.20 L ABG pCO2 107 H* 111 H* ABG pO2 85 78 L ABG HCO3 36 H 39 H ABG O2 Saturation 94 92 ABG Base Excess 4 H 6 H VBG pH 7.48 VBG pCO2 50 VBG pO2 82 H VBG Base Excess 11 H 04/04/25 04/04/25 04/04/25 19:35 22:40 23:52 ABG pH 7.16 L* 7.59 H D 7.53 H ABG pCO2 113 H* 37 D 45 ABG pO2 53 L* D 194 H D 87 D ABG HCO3 40 H 36 H 37 H ABG O2 Saturation 78 L 101 H 99 H ABG Base Excess 7 H 13 H 13 H VBG pH VBG pCO2 VBG pO2 VBG Base Excess 04/05/25 04/05/25 04/05/25 01:20 04:52 13:02 ABG pH 7.52 H 7.47 H 7.30 L D ABG pCO2 47 50 H 74 H* D ABG pO2 60 L D 60 L 64 L ABG HCO3 38 H 37 H 37 H ABG O2 Saturation 94 93 89 L ABG Base Excess 13 H 11 H 7 H VBG pH VBG pCO2 VBG pO2 VBG Base Excess 04/06/25 04/07/25 04/09/25 03:55 10:54 04:42 ABG pH 7.36 7.50 H ABG pCO2 70 H 63 H ABG pO2 101 D 57 L* ABG HCO3 39 H 49 H ABG O2 Saturation 98 91 ABG Base Excess 10 H 21 H VBG pH 7.40 VBG pCO2 67 H D VBG pO2 76 H VBG Base Excess 13 H 04/09/25 04/09/25 04/09/25 06:25 13:10 22:47 ABG pH 7.52 H 7.47 H ABG pCO2 56 H 61 H ABG pO2 79 L D 62 L ABG HCO3 46 H 44 H ABG O2 Saturation 97 92 ABG Base Excess 19 H 16 H VBG pH 7.56 VBG pCO2 52 D VBG pO2 43 D VBG Base Excess 21 H 04/10/25 04/10/25 04/10/25 05:22 12:07 17:17 ABG pH 7.43 7.40 ABG pCO2 64 H 68 H ABG pO2 64 L 77 L ABG HCO3 43 H 42 H ABG O2 Saturation 92 95 ABG Base Excess 15 H 14 H VBG pH 7.55 VBG pCO2 45 VBG pO2 76 H D VBG Base Excess 15 H Quality Measures Quality Measures VTE prophylaxis Advance care planning discussed with:: patient Assessment & Plan Assessment Current Active Medications: Generic Name Dose Route Start Last Admin Trade Name Freq PRN Reason Stop Dose Admin Acetaminophen 650 mg 04/04/25 17:27 Acetaminophen 325 Mg Tablet PO 05/04/25 17:26 Q6H PRN Fever >100 or pain 1-3 Apixaban 5 mg 04/07/25 21:00 04/13/25 08:24 Apixaban 2.5 Mg Tablet PO 05/07/25 20:59 5 mg BID JOSELUIS Administration Atorvastatin Calcium 40 mg 04/07/25 21:00 04/14/25 20:40 Atorvastatin Calcium 20 Mg Tablet PO 05/07/25 20:59 40 mg HS JOSELUIS Administration Alfuzosin Er 10 Mg 0 ea 04/11/25 13:45 04/15/25 08:51 Tablet PO 05/11/25 13:44 1 tablet QDAY JOSELUIS Administration Dextrose 25 ml 04/04/25 17:38 Dextrose 50%-Water Inj 50 Ml Syringe IV 05/04/25 17:37 Q15MIN PRN BG 50-70 responsive npo pt Dextrose 50 ml 04/04/25 17:38 Dextrose 50%-Water Inj 50 Ml Syringe IV 05/04/25 17:37 Q15MIN PRN BG <50 OR BG <70 & pt unresponsive Finasteride 5 mg 04/14/25 16:15 04/15/25 08:52 Finasteride 5 Mg Tablet PO 05/14/25 16:14 5 mg QDAY JOSELUIS Administration Glucagon 1 mg 04/04/25 17:38 Glucagon Inj 1 Mg Vial IM Q15MIN PRN BG <70, and no IV access Insulin Glargine 5 unit 04/06/25 21:00 04/14/25 20:41 Insulin Glargine (Lantus) 5 Unit/0.05 Ml (Per 5 Units) SC 05/06/25 20:59 5 unit HS JOSELUIS Administration Insulin Human Lispro 0 unit 04/07/25 07:30 04/15/25 17:06 Insulin Lispro (Admelog) 1 Unit/0.01 Ml Unit SC 05/07/25 07:29 Not Given ACHS [facility] Protocol Ipratropium [place] 0.5 mg 04/07/25 07:45 04/15/25 14:38 Ipratropium Rt 0.5 Mg/ 2.5 Ml Nebu INH 05/07/25 07:44 0.5 mg Q8HRRT JOSELUIS Administration Levalbuterol HCl 1.25 mg 04/07/25 07:45 04/15/25 14:38 Levalbuterol Rt 1.25 Mg/0.5 Ml Nebu INH 05/07/25 07:44 1.25 mg Q8HRRT JOSELUIS Administration Metoprolol Succinate 100 mg 04/06/25 21:00 04/14/25 20:40 Metoprolol Succinate Xl 25 Mg Tabcr PO 05/06/25 20:59 100 mg HS JOSELUIS Administration Ondansetron HCl 4 mg 04/04/25 17:32 Ondansetron Inj 2 Mg/Ml Inj 2 Ml IVP 05/04/25 17:31 Q6H PRN NAUSEA OR VOMITING Protocol Pantoprazole Sodium 40 mg 04/10/25 09:00 04/15/25 08:53 Pantoprazole 40 Mg Tablet PO 05/10/25 08:59 40 mg QDAY JOSELUIS Administration Protocol Sodium Chloride 3 ml 04/04/25 17:27 Sodium Chloride Rt Zo 0.9% 3 Ml Nebu INH 05/04/25 17:26 PRN PRN SOLN Plan The patient is a 74-year-old male with past medical history significant for hypertension, possible CAD, chronic A-fib, type 2 diabetes mellitus, MOUNIKA and acute CVA in 2019 presented to ED with chief complaint of worsening SOB for the past couple of months is currently being managed for acute on chronic hypoxic respiratory failure. Cardiology consultation was done for further management of possible new onset CHF exacerbation in the setting of longstanding atrial fibrillation. # 2/2 #Post obstructive uropathy Improved The patient presented initially with volume overload in the setting of HFpEF exacerbation, and was diuresed about 9 L since admission. On 04/10/2025, the patient's creatinine was 1.4, and repeat creatinine after 1 L of bolus fluid was 1.7, and this morning it was 3.0, and repeat creatinine was 3.6. Urine output was less than 400 cc in 24 hours. On 04/11/2025, the patient had about 2.5 L of urine output, with mild improvement in creatinine to 3.1. Dark clots were suspected in the urine on 04/11/25 and was placed on saline bladder irrigation, discontinued on 04/13/2025. On 04/14/2025, creatinine has improved to 1.4 ---> 04/15, 1.1 - Nephrology consultation done - Avoid nephrotoxic drugs - Renally dose medications - Daily a.m. labs were renal panel #Hematuria, resolving -Dr. Walters, urologist consulted. CT abdomen/pelvis done on 04/13/2025 revealed massive prostatomegaly causing mild bilateral hydronephrosis and early wall thickening in the urinary bladder #Acute on chronic hypoxic respiratory failure 2/2 S/P extubation #New onset diastolic CHF exacerbation, in the setting of #Chronic atrial fibrillation #Aspiration pneumonia, resolved #MOUNIKA Patient presented with chief complaint of worsening of SOB for past couple of months, visited PCP for 2 times, was given some medications that did not help at all. The patient has history of longstanding atrial fibrillation diagnosed about 5 years ago, but patient is unaware of the situation. Physical exam is significant for generalized anasarca. Liver enzymes WNL, though suspicious for cirrhosis as there is irregular liver counter, but synthetic and detoxification function of liver is intact, suggestive of more likely acute new onset CHF exacerbation. TSH 1.35 [id number] score of 6 - Diuresed well - Hold diuretics - Metoprolol succinate 100 Mg daily at night for rate control - Maintain potassium and magnesium greater than 4 and greater than 2 all the time - Strict ins and out, fluid restriction of 2000 cc daily - Low-sodium diet - Patient education regarding CHF and atrial fibrillation - CPAP/BiPAP at night, as needed at daytime - Telemetry monitoring - Eliquis 5 Mg twice daily (Hold due to hematuria, and resume after hematuria improves). - Recommend to keep saturation between 88 to 92%. Pt was having clot on urine, suggestive of obstructive uropathy rather than over diuresis. Creatinine improved to 1.1 Negative by ~ 10L since admission with diuresis initially TTE was significant for diastolic dysfunction, but unable to grade because of atrial fibrillation, LVEF 60 to 65%. Recommended to further evaluate urine protein level, as it was 2+. Dark clots were suspected in the urine on 04/11/25 and was placed on saline bladder irrigation, discontinued on 04/13/2025 Aspirin 81 Mg daily, Eliquis 5 Mg twice daily (hold due to hematuria), metoprolol succinate 100 Mg daily and atorvastatin 40 Mg daily at night to maintain LDL level less than 55 in the setting of past medical history of hypertension, diabetes mellitus and stroke. Atorvastatin 40 Mg daily at night. Metoprolol succinate 100 Mg daily. During discharge, patient should be placed on 40 mg Lasix daily and follow-up with toxicology supervisor Dr. Toney after 1 week of discharge. #Past medical history of acute CVA in 2019 #Hypertension #Hyperlipidemia #Possible CAD LDL 73 Blood pressure soft at this time -Aspirin 81 Mg daily - hold for now -Lipitor 40 Mg daily at night, to maintain LDL level less than 55 in the setting of hypertension, diabetes mellitus type 2 and past medical history of CVA -Antihypertensive will be adjusted given the patient's heart rate and blood pressure, currently started on metoprolol succinate 100 Mg daily at night #DM type II, A1c 6.9 #Rule out cirrhosis #Proteinuria, to be further evaluated Rest of the management deferred to primary hospitalist team. During discharge, the patient should be started on Lasix 20 mg daily, but after 3 days of discharge. Recommended to follow-up with toxicology supervisor Dr. toney within 1 week of discharge. Thank you for consulting cardiology team. We appreciate the opportunity to participate in this patient's care. Cardiology team will continue to follow-up on this patient care. The patient's management plan was discussed with my attending physician Dr. Toney, MD Avery Schmidt, PGY2
[2025-04-15] MEDS: INSULIN GLARGINE (Lantus) 5 UNIT/0.05 ML (PER 5 UNITS) SC (20:36)
[2025-04-15] MEDS: ATORVASTATIN CALCIUM 20 MG TABLET 40 MG PO (20:37)
[2025-04-15] MEDS: METOPROLOL SUCCINATE XL 25 MG TABCR 100 MG PO (20:39)
--- NOTE | 2025-04-15 22:36 | PD.NEUROPROG ---
Documentation for date of: 04/15/25 Subjective Subjective Interval history: Patient was seen in telemetry today,no more confusion and disorientation reported. However overall he is improving, close to baseline. He denies any new symptoms. Tolerating oral diet well Exam - Neurology Vital Signs Temp Pulse Resp BP Pulse Ox O2 Del Method O2 Flow Rate 97.6 F 95 18 158/88 H 95 Nasal Cannula 3 04/15/25 20:00 04/15/25 20:39 04/15/25 20:00 04/15/25 20:39 04/15/25 20:00 04/15/25 20:00 04/15/25 20:00 FiO2 32 04/15/25 12:00 Narrative Exam GENERAL APPEARANCE: Well hydrated, well-nourished in no acute distress. HEENT: Normocephalic, atraumatic, extraocular movements intact. Pupils: Equal reacting to light and accommodation, tympanic membranes are bilaterally intact. There is no bulge or retraction. Throat without erythema or exudate. Moist oral mucosa. NECK: Supple, no JVD or bruits. CARDIOVASULAR: Heart: S1, S2 heard, irregular without S3-S4 or murmur no rubs or gallops. LUNGS/CHEST: Clear to auscultation bilaterally. No rails, rhonchi, or wheezing. Normal inspection. ABDOMEN: Soft, nontender, with normal bowel sounds. No pulsatile masses. No rebound, rigidity, or guarding. Normal inspection and palpation. EXTREMITIES: Normal inspection and palpation. No edema, clubbing or cyanosis. SKIN: Warm and dry without rashes. Normal inspection. MUSCULOSKELETAL: No cervical, thoracic, lumbar or midline bony tenderness. Normal inspection. NEURO: Alert, awake and oriented x2. Cranial nerves: II through XII grossly intact. Speech and language: Normal with no dysarthria or dysphasia. Motor system: Tone and bulk: Normal: Strength: mild weakness in the left upper extremity more than the lower extremity,nopronator drift noted. Deep tendon reflexes: Hyporeflexic, bilaterally symmetrical. Plantar reflex: Downgoing bilaterally. Sensory system: Impaired on the left. Coordination: Intact to [id number] and [id number] test on the right. Gait: not tested. no signs of meningeal irritation noted. PSYCHIATRIC: Normal mood and affect. Denies homicidal or suicidal ideation. Objective Labs 04/15/25 04:47 04/15/25 04:47 Labs: Laboratory Results - last 24 hr 04/15/25 04:47 WBC 7.5 RBC 5.22 Hgb 13.8 Hct 47.2 MCV 90 MCH 26.4 MCHC 29.2 L RDW Std Deviation 51.1 H Plt Count 179 Neut % (Auto) 73 Lymph % (Auto) 13 Parker % (Auto) 9 Eos % (Auto) 4 Baso % (Auto) 1 Neut # (Auto) 5.5 Lymph # (Auto) 1.0 Parker # (Auto) 0.7 Eos # (Auto) 0.3 Baso # (Auto) 0.1 Immature Gran # (Auto) 0.02 H Absolute Nucleated RBC 0.00 Immature Gran % 0 Nucleated RBC % 0 Sodium 144 Potassium 3.9 Chloride 101 Carbon Dioxide 34.1 H Anion Gap 9 BUN 28 H Creatinine 1.1 Estim Creat Clear Calc 68.9 eGFR > 60 BUN/Creatinine Ratio 25 H Glucose 139 H Calculated Osmolality 294 Calcium 8.5 Corrected Calcium 9.0 Phosphorus 2.5 Magnesium 1.8 Total Bilirubin 1.8 H AST 22 ALT 21 Alkaline Phosphatase 80 Total Protein 5.9 Albumin 3.4 Globulin 2.5 Albumin/Globulin Ratio 1.4 ABG Interpretation ABG results: 04/04/25 04/04/25 04/04/25 13:42 17:07 18:33 ABG pH 7.14 L* 7.20 L ABG pCO2 107 H* 111 H* ABG pO2 85 78 L ABG HCO3 36 H 39 H ABG O2 Saturation 94 92 ABG Base Excess 4 H 6 H VBG pH 7.48 VBG pCO2 50 VBG pO2 82 H VBG Base Excess 11 H 04/04/25 04/04/25 04/04/25 19:35 22:40 23:52 ABG pH 7.16 L* 7.59 H D 7.53 H ABG pCO2 113 H* 37 D 45 ABG pO2 53 L* D 194 H D 87 D ABG HCO3 40 H 36 H 37 H ABG O2 Saturation 78 L 101 H 99 H ABG Base Excess 7 H 13 H 13 H VBG pH VBG pCO2 VBG pO2 VBG Base Excess 04/05/25 04/05/25 04/05/25 01:20 04:52 13:02 ABG pH 7.52 H 7.47 H 7.30 L D ABG pCO2 47 50 H 74 H* D ABG pO2 60 L D 60 L 64 L ABG HCO3 38 H 37 H 37 H ABG O2 Saturation 94 93 89 L ABG Base Excess 13 H 11 H 7 H VBG pH VBG pCO2 VBG pO2 VBG Base Excess 04/06/25 04/07/25 04/09/25 03:55 10:54 04:42 ABG pH 7.36 7.50 H ABG pCO2 70 H 63 H ABG pO2 101 D 57 L* ABG HCO3 39 H 49 H ABG O2 Saturation 98 91 ABG Base Excess 10 H 21 H VBG pH 7.40 VBG pCO2 67 H D VBG pO2 76 H VBG Base Excess 13 H 04/09/25 04/09/25 04/09/25 06:25 13:10 22:47 ABG pH 7.52 H 7.47 H ABG pCO2 56 H 61 H ABG pO2 79 L D 62 L ABG HCO3 46 H 44 H ABG O2 Saturation 97 92 ABG Base Excess 19 H 16 H VBG pH 7.56 VBG pCO2 52 D VBG pO2 43 D VBG Base Excess 21 H 04/10/25 04/10/25 04/10/25 05:22 12:07 17:17 ABG pH 7.43 7.40 ABG pCO2 64 H 68 H ABG pO2 64 L 77 L ABG HCO3 43 H 42 H ABG O2 Saturation 92 95 ABG Base Excess 15 H 14 H VBG pH 7.55 VBG pCO2 45 VBG pO2 76 H D VBG Base Excess 15 H Assessment & Plan Additional Assessment & Plan Additional Plan: Acute encephalopathy, resolved Initial presentation: rapid response for altered mental status, found difficult to awaken, unresponsive to stimuli including sternal rubs. After several attempts, he was awakened, returned to baseline. Exam showed no focal neurological deficits. He was alert and oriented x 4 but did not recall the episode. 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 No acute infarct. 90% stenosis Right [employer] junction P1 P2 segments 03/15/23 MRI/MRA brain w/o : 90% plus stenosis right posterior cerebral artery junction P1 P2 segments, 70% stenosis Left [employer] P1 segment Carotid Doppler: Right internal carotid artery demonstrates 0-10% stenosis. Left internal carotid artery demonstrates 0-10% stenosis. Plan: - Continue high-intensity statin and ASA 81 mg
[2025-04-16] VITALS (12 sets, daily range): BP systolic 123–152; BP diastolic 72–94; PULSE 75–132; RESP 12–25; TEMP 36.1–36.9; O2SAT 94–100; BMI 34.9; BMI 15.0
[2025-04-16 05:17] LABS: Basophils # (Auto) 0.1 Thou/mm3 (0.0-0.2); Basophils % (Auto) 1 % (0-2.5); Eosinophils # (Auto) 0.3 Thou/mm3 (0.0-0.5); Eosinophils % (Auto) 4 % (0-10); Hematocrit 45.9 % (41.0-53.0); Hemoglobin 13.5 g/dL (13.5-16.0); Immature Granulocytes Auto 0.02 Thou/mm3 (0.00-0.00); Lymphocytes # (Auto) 1.0 Thou/mm3 (1.0-4.8); Lymphocytes % (Auto) 12 % (10-50); Mean Corpuscular HGB Conc 29.4 g/dl (31.0-37.0); Mean Corpuscular Hemoglobin 26.5 pg (25.0-35.0); Mean Corpuscular Volume 90 fL (80-100); Monocytes # (Auto) 0.6 Thou/mm3 (0.0-0.8); Monocytes % (Auto) 8 % (0-12); Neutrophils # (Auto) 6.0 Thou/mm3 (1.8-7.7); Neutrophils % (Auto) 76 % (37-80); Nucleated Red Blood Cell # 0.00 Thou/mm3 (0.00-0.00); Nucleated Red Blood Cell % 0 /100 WBC (0); Platelet Count 192 Thou/mm3 (140-440); RDW Standard Deviation 50.3 fL (35.1-43.9); Red Blood Count 5.10 Miln/mm3 (4.50-5.90); White Blood Count 8.0 Thou/mm3 (3.8-10.6)
[2025-04-16 05:41] LABS: Alanine Aminotransferase 27 U/L (10-49); Albumin, Serum 3.4 gm/dL (3.4-4.8); Albumin/Globulin Ratio 1.5 (1.2-2.2); Alkaline Phosphatase 92 U/L (46-116); Anion Gap 8 (7-16); Aspartate Amino Transferase 28 U/L (0-34); BUN/Creatinine Ratio 25 Ratio (12-20); Bilirubin,Total 1.3 mg/dL (0.3-1.2); Blood Urea Nitrogen 25 mg/dL (9-23); Calcium 8.5 mg/dL (8.3-10.6); Calcium (Corrected) 9.0 mg/dL (8.5-10.1); Carbon Dioxide 32.6 mMol/L (20.0-31.0); Chloride 103 mMol/L (98-107); Creatinine (Component) 1.0 mg/dL (0.6-1.3); Estimated Creatinine Clearance 75.6 mL/min (>60); Globulin 2.3 gm/dL (2.3-3.5); Glucose 128 mg/dL (74-106); Magnesium 1.8 mg/dL (1.6-2.6); Osmolality,Calculated 293 (275-295); Phosphorous 2.4 mg/dL (2.4-5.1); Potassium 3.8 mMol/L (3.4-5.1); Sodium 144 mMol/L (136-145); Total Protein 5.7 gm/dL (5.7-8.2); eGFR > 60 See Note
[2025-04-16] MEDS: LEVALBUTEROL RT 1.25 MG/0.5 ML NEBU INH ×3 (06:41→22:20)
[2025-04-16] MEDS: IPRATROPIUM RT 0.5 MG/ 2.5 ML NEBU INH ×3 (06:41→22:20)
--- NOTE | 2025-04-16 09:09 | PD.RESPRO ---
Documentation for date of: 04/16/25 Subjective Subjective Interval history: Kade Dalal is a 74-year-old male with PMHx of A-fib on ELIQUIS, HTN, T2DM, MOUNIKA/OHS, chronic respiratory failure, on home 2-3 L oxygen, admitted for volume overload requiring intubation and aggressive diuresis and SOB. Echo showed EF 65% with diastolic dysfunction. He has been on diuresis since. With a total of 9 L fluid removed. Overall oxygen demand improved from baseline, currently on 1 L NC. Continued on BiPAP HS. Patient received 500 cc NS x2 after worsening contraction alkalosis was shown on chem panel and vbg/abg. Cardiology is considering DIAMOX if CO2 remains elevated. Nephrology is consulted in for likely due to prerenal azotemia secondary to over-diuresis. 04/13/2025 No acute events overnight. Patient continues to make dark red urine. Patient's creatinine continues to improve (1.7 today). Patient had bladder irrigation yesterday, discontinuing today. Patient this morning does not have any new complaints or concerns. Patient denies having any fever, chest pain, shortness of breath. 04/14/2025 No acute events overnight. Patient continues to make dark red urine. Patient's creatinine continues to improve (1.4 today). Patient this morning does not have any new complaints or concerns. Patient denies having any fever, chest pain, shortness of breath. 04/15/25 Patient seen and examined at bedside. No new complaints. Denies chest pain, SOB or fever. Greatly improved hematuria in moss with good urine output. Cr continues to improve 1.1 today. 04/16/25 Patient seen and examined at bedside. No new complaints. Denies chest pain, SOB or fever. Good urine output with light red color, improving hematuria. Cr continues to improve 1.0 today. Exam Vital Signs Temp Pulse Resp BP Pulse Ox O2 Del Method O2 Flow Rate 98.3 F 77 20 146/94 H 99 BiPAP 3 04/16/25 04:00 04/16/25 06:41 04/16/25 06:41 04/16/25 04:00 04/16/25 06:41 04/16/25 04:00 04/16/25 04:00 FiO2 30 04/16/25 06:41 Narrative Exam Gen: alert and oriented x3, NAD, vitals reviewed Head/Neck: NCAT, no gross LAD ENT: EOMI grossly, anicteric sclerae, mmm Resp: Lungs CTAB, normal respiratory effort CV: regular rhythm, regular rate; extremities well perfused GI: no distension; no tenderness, normal bowel sounds present Ext: no clubbing, cyanosis. no Lower extremity edema Skin: chronic venous stasis, no new rash or lesions on visual exam Neuro/MSK: moves all extremities Psych: normal mood; appropriate affect Objective Labs 04/17/25 09:47 04/17/25 09:47 Labs: Laboratory Results - last 24 hr 04/16/25 04:17 WBC 8.0 RBC 5.10 Hgb 13.5 Hct 45.9 MCV 90 MCH 26.5 MCHC 29.4 L RDW Std Deviation 50.3 H Plt Count 192 Neut % (Auto) 76 Lymph % (Auto) 12 [place] % (Auto) 8 Eos % (Auto) 4 Baso % (Auto) 1 Neut # (Auto) 6.0 Lymph # (Auto) 1.0 [place] # (Auto) 0.6 Eos # (Auto) 0.3 Baso # (Auto) 0.1 Immature Gran # (Auto) 0.02 H Absolute Nucleated RBC 0.00 Immature Gran % 0 Nucleated RBC % 0 Sodium 144 Potassium 3.8 Chloride 103 Carbon Dioxide 32.6 H Anion Gap 8 BUN 25 H Creatinine 1.0 Estim Creat Clear Calc 75.6 eGFR > 60 BUN/Creatinine Ratio 25 H Glucose 128 H Calculated Osmolality 293 Calcium 8.5 Corrected Calcium 9.0 Phosphorus 2.4 Magnesium 1.8 Total Bilirubin 1.3 H D AST 28 ALT 27 Alkaline Phosphatase 92 Total Protein 5.7 Albumin 3.4 Globulin 2.3 Albumin/Globulin Ratio 1.5 ABG Interpretation ABG results: 04/04/25 04/04/25 04/04/25 13:42 17:07 18:33 ABG pH 7.14 L* 7.20 L ABG pCO2 107 H* 111 H* ABG pO2 85 78 L ABG HCO3 36 H 39 H ABG O2 Saturation 94 92 ABG Base Excess 4 H 6 H VBG pH 7.48 VBG pCO2 50 VBG pO2 82 H VBG Base Excess 11 H 04/04/25 04/04/25 04/04/25 19:35 22:40 23:52 ABG pH 7.16 L* 7.59 H D 7.53 H ABG pCO2 113 H* 37 D 45 ABG pO2 53 L* D 194 H D 87 D ABG HCO3 40 H 36 H 37 H ABG O2 Saturation 78 L 101 H 99 H ABG Base Excess 7 H 13 H 13 H VBG pH VBG pCO2 VBG pO2 VBG Base Excess 04/05/25 04/05/25 04/05/25 01:20 04:52 13:02 ABG pH 7.52 H 7.47 H 7.30 L D ABG pCO2 47 50 H 74 H* D ABG pO2 60 L D 60 L 64 L ABG HCO3 38 H 37 H 37 H ABG O2 Saturation 94 93 89 L ABG Base Excess 13 H 11 H 7 H VBG pH VBG pCO2 VBG pO2 VBG Base Excess 04/06/25 04/07/25 04/09/25 03:55 10:54 04:42 ABG pH 7.36 7.50 H ABG pCO2 70 H 63 H ABG pO2 101 D 57 L* ABG HCO3 39 H 49 H ABG O2 Saturation 98 91 ABG Base Excess 10 H 21 H VBG pH 7.40 VBG pCO2 67 H D VBG pO2 76 H VBG Base Excess 13 H 04/09/25 04/09/25 04/09/25 06:25 13:10 22:47 ABG pH 7.52 H 7.47 H ABG pCO2 56 H 61 H ABG pO2 79 L D 62 L ABG HCO3 46 H 44 H ABG O2 Saturation 97 92 ABG Base Excess 19 H 16 H VBG pH 7.56 VBG pCO2 52 D VBG pO2 43 D VBG Base Excess 21 H 04/10/25 04/10/25 04/10/25 05:22 12:07 17:17 ABG pH 7.43 7.40 ABG pCO2 64 H 68 H ABG pO2 64 L 77 L ABG HCO3 43 H 42 H ABG O2 Saturation 92 95 ABG Base Excess 15 H 14 H VBG pH 7.55 VBG pCO2 45 VBG pO2 76 H D VBG Base Excess 15 H Quality Measures Quality Measures VTE prophylaxis Advance care planning discussed with:: patient Assessment & Plan Assessment Current Active Medications: Generic Name Dose Route Start Last Admin Trade Name Freq PRN Reason Stop Dose Admin Acetaminophen 650 mg 04/04/25 17:27 Acetaminophen 325 Mg Tablet PO 05/04/25 17:26 Q6H PRN Fever >100 or pain 1-3 Apixaban 5 mg 04/07/25 21:00 04/13/25 08:24 Apixaban 2.5 Mg Tablet PO 05/07/25 20:59 5 mg BID JOSELUIS Administration Atorvastatin Calcium 40 mg 04/07/25 21:00 04/15/25 20:37 Atorvastatin Calcium 20 Mg Tablet PO 05/07/25 20:59 40 mg HS JOSELUIS Administration Alfuzosin Er 10 Mg 0 ea 04/11/25 13:45 04/15/25 08:51 Tablet PO 05/11/25 13:44 1 tablet QDAY JOSELUIS Administration Dextrose 25 ml 04/04/25 17:38 Dextrose 50%-Water Inj 50 Ml Syringe IV 05/04/25 17:37 Q15MIN PRN BG 50-70 responsive npo pt Dextrose 50 ml 04/04/25 17:38 Dextrose 50%-Water Inj 50 Ml Syringe IV 05/04/25 17:37 Q15MIN PRN BG <50 OR BG <70 & pt unresponsive Finasteride 5 mg 04/14/25 16:15 04/15/25 08:52 Finasteride 5 Mg Tablet PO 05/14/25 16:14 5 mg QDAY JOSELUIS Administration Glucagon 1 mg 04/04/25 17:38 Glucagon Inj 1 Mg Vial IM Q15MIN PRN BG <70, and no IV access Magnesium Sulfate 2 gm in 50 mls @ 25 mls/hr 04/16/25 08:40 Magnesium Sulfate Ivpb IV 04/16/25 10:39 X1 ONE Insulin Glargine 5 unit 04/06/25 21:00 04/15/25 20:36 Insulin Glargine (Lantus) 5 Unit/0.05 Ml (Per 5 Units) SC 05/06/25 20:59 5 unit HS JOSELUIS Administration Insulin Human Lispro 0 unit 04/07/25 07:30 04/16/25 07:47 Insulin Lispro (Admelog) 1 Unit/0.01 Ml Unit SC 05/07/25 07:29 Not Given ACHS JOSELUIS Protocol Ipratropium [place] 0.5 mg 04/07/25 07:45 04/16/25 06:41 Ipratropium Rt 0.5 Mg/ 2.5 Ml Nebu INH 05/07/25 07:44 0.5 mg Q8HRRT JOESLUIS Administration Levalbuterol HCl 1.25 mg 04/07/25 07:45 04/16/25 06:41 Levalbuterol Rt 1.25 Mg/0.5 Ml Nebu INH 05/07/25 07:44 1.25 mg Q8HRRT JOSELUIS Administration Losartan Potassium 25 mg 04/16/25 09:00 Losartan Potassium 25 Mg Tablet PO 05/16/25 08:59 QDAY JOSELUIS Metoprolol Succinate 100 mg 04/06/25 21:00 04/15/25 20:39 Metoprolol Succinate Xl 25 Mg Tabcr PO 05/06/25 20:59 100 mg HS JOSELUIS Administration Ondansetron HCl 4 mg 04/04/25 17:32 Ondansetron Inj 2 Mg/Ml Inj 2 Ml IVP 05/04/25 17:31 Q6H PRN NAUSEA OR VOMITING Protocol Pantoprazole Sodium 40 mg 04/10/25 09:00 04/15/25 08:53 Pantoprazole 40 Mg Tablet PO 05/10/25 08:59 40 mg QDAY JOSELUIS Administration Protocol Sodium Chloride 3 ml 04/04/25 17:27 Sodium Chloride Rt Zo 0.9% 3 Ml Nebu INH 05/04/25 17:26 PRN PRN SOLN Plan 74-year-old male with PMHx of A-fib on ELIQUIS, HTN, T2DM, MOUNIKA/OHS, chronic respiratory failure, on home 2-3 L oxygen, presented with shortness of breath. Admitted for volume overload requiring intubation and aggressive diuresis. Subsequently extubated successfully, but has worsening hypercapnic respiratory failure. Nephrology consulted for management of . # Acute Kidney Injury, resolving Likely ATN with Cr now improving vs potential obstructive etiology; Patient initially noted to have with current Cr 3.0 (over baseline ~1.0). Suspect pre-renal due to over-diuresis in context of chf exacerbation vs obstructive (CT AP shows: Massive prostatomegaly causing mild bilateral hydronephrosis and early wall thickening in the urinary bladder). Holding fluids due to patient's volume status appearing full. Denies dizziness, weakness. Good urine output. Continued improvement regarding hematuria in Moss bag - Fluid Restrict 2L daily - Cr continues to be improved, 1.0 currently - renally dose medications - hold nephrotoxic meds - Urology consulted, recs appreciated - Will most likely need to discharge to SNF/rehab placement Acute metabolic encephalopathy Acute on chronic hypercapnic respiratory failure Contraction alkalosis with appropriate respiratory compensation CHF exacerbation MOUNIKA, OHS Fluid overload status (resolved) Tachycardia A-fib HTN HLD Pneumonia, CAP versus aspiration Reactive leukocytosis Hepatomegaly Hyperbilirubinemia, direct Normocytic normochromic anemia Hematuria T2DM Hx of CVA. Electrolyte abnormalities Above problems Medically managed through the primary team Thank you for allowing us to take part in the care of Mr. Dalal Plan of care discussed with attending, Dr. Jorgito Srivastava MD PGY-1 Attending Provider Attestation/Addendum Patient seen and examined with resident physician Dr. Perez. Note reviewed, agree with findings and recommendations. Clinically patient looks rather dehydrated. Hemoglobin 16.9. Patient seems to be sleepy when I examined him. Could not get much information. Spoke to sister. Hold off on diuretics. Give 1 L IV fluids with close monitoring of urinary output and creatinine. Plan of care discussed with Sister Wendy at bedside. 04/16/2025 patient currently seen in telemetry. Patient currently on Nasal canula. Hematuria improved. Creatinine improved. Off diuretics. Hold off on fluids for now. Clinically looks euvolemic. Spoke to PCP- agree with urology consultation for recurrent hematuria. Spoke to Dr Walters-will come and see the patient today.
[2025-04-16] MEDS: FINASTERIDE 5 MG TABLET PO (09:14)
[2025-04-16] MEDS: PANTOPRAZOLE 40 MG TABLET PO (09:14)
[2025-04-16] MEDS: LOSARTAN POTASSIUM 25 MG TABLET PO (09:14)
[2025-04-16] MEDS: ALFUZOSIN ER 10 MG TABLET PO (09:14)
[2025-04-16] MEDS: Magnesium Sulfate 2 GM Ivpb 2 GM/50 ML BAG IV (09:15)
--- NOTE | 2025-04-16 09:41 | PC.SS ---
Update: Patient is pending urology follow up. Possible d/c following urology recommendations.
[2025-04-16] MEDS: INSULIN LISPRO (AdmeLOG) 1 UNIT/0.01 ML UNIT SC ×2 (11:37→17:22)
--- NOTE | 2025-04-16 14:31 | PC.SS ---
SYSTEMS DESIGNER confirmed with family that preferred SNF is [facility]. Facility has accepted the patient for placement [facility]. Daughter, Lizz; provided update. SYSTEMS DESIGNER contacted SNF to confirm need for BI-PAP. SNF in possession of BI-PAP. SYSTEMS DESIGNER confirmed that authorization has been obtained. SNF confirmed that authorization has been obtained. Discharge pending urology clearance. Bedside nurse updated.
--- NOTE | 2025-04-16 14:47 | PD.RESPRO ---
Documentation for date of: 04/16/25 Subjective Subjective Interval history: Patient is seen and examined at the bedside. No acute overnight events. Denies any other complaints. Vitals are stable. CBC at baseline. CMP revealed improvement in creatinine with creatinine 1.0, BUN 25. Pt was having clot on urine, suggestive of obstructive uropathy rather than over diuresis. Creatinine improved to 1.0 Negative by ~ 10L since admission with diuresis initially TTE was significant for diastolic dysfunction, but unable to grade because of atrial fibrillation, LVEF 60 to 65%. Repleted with 2gm of magnesium Recommended to further evaluate urine protein level, as it was 2+. Dark clots were suspected in the urine on 04/11/25 and was placed on saline bladder irrigation, discontinued on 04/13/2025. Consulted Urologist Dr. Walters. Aspirin 81 Mg daily and Eliquis 5 Mg twice daily (hold due to hematuria), metoprolol succinate 100 Mg daily and atorvastatin 40 Mg daily at night to maintain LDL level less than 55 in the setting of past medical history of hypertension, diabetes mellitus and stroke. During discharge, patient should be placed on 40 mg Lasix daily and follow-up with physician assistant surgery Dr. Toney after 1 week of discharge. Exam Vital Signs Temp Pulse Resp BP Pulse Ox O2 Del Method O2 Flow Rate 97.2 F 81 19 145/83 H 100 Nasal Cannula 1 04/16/25 12:00 04/16/25 13:59 04/16/25 13:59 04/16/25 12:00 04/16/25 13:59 04/16/25 12:00 04/16/25 12:00 FiO2 30 04/16/25 12:00 Narrative Exam General: Awake. HEENT: Normocephalic, atraumatic, mucous membranes moist. Heart: Regular rate and rhythm, no murmurs. Lungs: Clear to auscultation with no wheezing or crackles. Abdomen: Soft, nondistended, nontender, positive bowel sounds. ?No guarding or rebound tenderness. noted reddish discoloration of urine without hematuria. Neurologic: Alert and oriented x3, no gross neurological deficit, and patient able to move all 4 extremities. Extremities: No edema. Skin: No rash or ecchymoses. Objective Labs 04/17/25 09:47 04/17/25 09:47 Labs: Laboratory Results - last 24 hr 04/16/25 04:17 WBC 8.0 RBC 5.10 Hgb 13.5 Hct 45.9 MCV 90 MCH 26.5 MCHC 29.4 L RDW Std Deviation 50.3 H Plt Count 192 Neut % (Auto) 76 Lymph % (Auto) 12 [place] % (Auto) 8 Eos % (Auto) 4 Baso % (Auto) 1 Neut # (Auto) 6.0 Lymph # (Auto) 1.0 [place] # (Auto) 0.6 Eos # (Auto) 0.3 Baso # (Auto) 0.1 Immature Gran # (Auto) 0.02 H Absolute Nucleated RBC 0.00 Immature Gran % 0 Nucleated RBC % 0 Sodium 144 Potassium 3.8 Chloride 103 Carbon Dioxide 32.6 H Anion Gap 8 BUN 25 H Creatinine 1.0 Estim Creat Clear Calc 75.6 eGFR > 60 BUN/Creatinine Ratio 25 H Glucose 128 H Calculated Osmolality 293 Calcium 8.5 Corrected Calcium 9.0 Phosphorus 2.4 Magnesium 1.8 Total Bilirubin 1.3 H D AST 28 ALT 27 Alkaline Phosphatase 92 Total Protein 5.7 Albumin 3.4 Globulin 2.3 Albumin/Globulin Ratio 1.5 ABG Interpretation ABG results: 04/04/25 04/04/25 04/04/25 13:42 17:07 18:33 ABG pH 7.14 L* 7.20 L ABG pCO2 107 H* 111 H* ABG pO2 85 78 L ABG HCO3 36 H 39 H ABG O2 Saturation 94 92 ABG Base Excess 4 H 6 H VBG pH 7.48 VBG pCO2 50 VBG pO2 82 H VBG Base Excess 11 H 04/04/25 04/04/25 04/04/25 19:35 22:40 23:52 ABG pH 7.16 L* 7.59 H D 7.53 H ABG pCO2 113 H* 37 D 45 ABG pO2 53 L* D 194 H D 87 D ABG HCO3 40 H 36 H 37 H ABG O2 Saturation 78 L 101 H 99 H ABG Base Excess 7 H 13 H 13 H VBG pH VBG pCO2 VBG pO2 VBG Base Excess 04/05/25 04/05/25 04/05/25 01:20 04:52 13:02 ABG pH 7.52 H 7.47 H 7.30 L D ABG pCO2 47 50 H 74 H* D ABG pO2 60 L D 60 L 64 L ABG HCO3 38 H 37 H 37 H ABG O2 Saturation 94 93 89 L ABG Base Excess 13 H 11 H 7 H VBG pH VBG pCO2 VBG pO2 VBG Base Excess 04/06/25 04/07/25 04/09/25 03:55 10:54 04:42 ABG pH 7.36 7.50 H ABG pCO2 70 H 63 H ABG pO2 101 D 57 L* ABG HCO3 39 H 49 H ABG O2 Saturation 98 91 ABG Base Excess 10 H 21 H VBG pH 7.40 VBG pCO2 67 H D VBG pO2 76 H VBG Base Excess 13 H 04/09/25 04/09/25 04/09/25 06:25 13:10 22:47 ABG pH 7.52 H 7.47 H ABG pCO2 56 H 61 H ABG pO2 79 L D 62 L ABG HCO3 46 H 44 H ABG O2 Saturation 97 92 ABG Base Excess 19 H 16 H VBG pH 7.56 VBG pCO2 52 D VBG pO2 43 D VBG Base Excess 21 H 04/10/25 04/10/25 04/10/25 05:22 12:07 17:17 ABG pH 7.43 7.40 ABG pCO2 64 H 68 H ABG pO2 64 L 77 L ABG HCO3 43 H 42 H ABG O2 Saturation 92 95 ABG Base Excess 15 H 14 H VBG pH 7.55 VBG pCO2 45 VBG pO2 76 H D VBG Base Excess 15 H Quality Measures Quality Measures VTE prophylaxis Advance care planning discussed with:: patient and sibling Assessment & Plan Assessment Current Active Medications: Generic Name Dose Route Start Last Admin Trade Name Freq PRN Reason Stop Dose Admin Acetaminophen 650 mg 04/04/25 17:27 Acetaminophen 325 Mg Tablet PO 05/04/25 17:26 Q6H PRN Fever >100 or pain 1-3 Apixaban 5 mg 04/07/25 21:00 04/13/25 08:24 Apixaban 2.5 Mg Tablet PO 05/07/25 20:59 5 mg BID JOSELUIS Administration Atorvastatin Calcium 40 mg 04/07/25 21:00 04/15/25 20:37 Atorvastatin Calcium 20 Mg Tablet PO 05/07/25 20:59 40 mg HS JOSELUIS Administration Alfuzosin Er 10 Mg 0 ea 04/11/25 13:45 04/16/25 09:14 Tablet PO 05/11/25 13:44 1 tablet QDAY JOSELUIS Administration Dextrose 25 ml 04/04/25 17:38 Dextrose 50%-Water Inj 50 Ml Syringe IV 05/04/25 17:37 Q15MIN PRN BG 50-70 responsive npo pt Dextrose 50 ml 04/04/25 17:38 Dextrose 50%-Water Inj 50 Ml Syringe IV 05/04/25 17:37 Q15MIN PRN BG <50 OR BG <70 & pt unresponsive Finasteride 5 mg 04/14/25 16:15 04/16/25 09:14 Finasteride 5 Mg Tablet PO 05/14/25 16:14 5 mg QDAY JOSELUIS Administration Glucagon 1 mg 04/04/25 17:38 Glucagon Inj 1 Mg Vial IM Q15MIN PRN BG <70, and no IV access Insulin Glargine 5 unit 04/06/25 21:00 04/15/25 20:36 Insulin Glargine (Lantus) 5 Unit/0.05 Ml (Per 5 Units) SC 05/06/25 20:59 5 unit HS JOSELUIS Administration Insulin Human Lispro 0 unit 04/07/25 07:30 04/16/25 11:37 Insulin Lispro (Admelog) 1 Unit/0.01 Ml Unit SC 05/07/25 07:29 1 unit ACHS JOSELUIS Administration Protocol Ipratropium [place] 0.5 mg 04/07/25 07:45 04/16/25 13:57 Ipratropium Rt 0.5 Mg/ 2.5 Ml Nebu INH 05/07/25 07:44 0.5 mg Q8HRRT JOSELUIS Administration Levalbuterol HCl 1.25 mg 04/07/25 07:45 04/16/25 13:57 Levalbuterol Rt 1.25 Mg/0.5 Ml Nebu INH 05/07/25 07:44 1.25 mg Q8HRRT JOSELUIS Administration Losartan Potassium 25 mg 04/16/25 09:00 04/16/25 09:14 Losartan Potassium 25 Mg Tablet PO 05/16/25 08:59 25 mg QDAY JOSELUIS Administration Metoprolol Succinate 100 mg 04/06/25 21:00 04/15/25 20:39 Metoprolol Succinate Xl 25 Mg Tabcr PO 05/06/25 20:59 100 mg HS JOSELUIS Administration Ondansetron HCl 4 mg 04/04/25 17:32 Ondansetron Inj 2 Mg/Ml Inj 2 Ml IVP 05/04/25 17:31 Q6H PRN NAUSEA OR VOMITING Protocol Pantoprazole Sodium 40 mg 04/10/25 09:00 04/16/25 09:14 Pantoprazole 40 Mg Tablet PO 05/10/25 08:59 40 mg QDAY JOSELUIS Administration Protocol Sodium Chloride 3 ml 04/04/25 17:27 Sodium Chloride Rt Zo 0.9% 3 Ml Nebu INH 05/04/25 17:26 PRN PRN SOLN Plan The patient is a 74-year-old male with past medical history significant for hypertension, possible CAD, chronic A-fib, type 2 diabetes mellitus, MOUNIKA and acute CVA in 2019 presented to ED with chief complaint of worsening SOB for the past couple of months is currently being managed for acute on chronic hypoxic respiratory failure. Cardiology consultation was done for further management of possible new onset CHF exacerbation in the setting of longstanding atrial fibrillation. #Hematuria, resolving CT abdomen/pelvis done on 04/13/2025 revealed massive prostatomegaly causing mild bilateral hydronephrosis and early wall thickening in the urinary bladder -Dr. Walters, urologist consulted. # 2/2 #Post obstructive uropathy Improved The patient presented initially with volume overload in the setting of HFpEF exacerbation, and was diuresed about 9 L since admission. On 04/10/2025, the patient's creatinine was 1.4, and repeat creatinine after 1 L of bolus fluid was 1.7, and this morning it was 3.0, and repeat creatinine was 3.6. Urine output was less than 400 cc in 24 hours. On 04/11/2025, the patient had about 2.5 L of urine output, with mild improvement in creatinine to 3.1. Dark clots were suspected in the urine on 04/11/25 and was placed on saline bladder irrigation, discontinued on 04/13/2025. On 04/14/2025, creatinine has improved to 1.4 ---> 04/15, 1.1 - Nephrology consultation done - Avoid nephrotoxic drugs - Renally dose medications - Daily a.m. labs were renal panel #Acute on chronic hypoxic respiratory failure 2/2 S/P extubation #New onset diastolic CHF exacerbation, in the setting of #Chronic atrial fibrillation #Aspiration pneumonia, resolved #MOUNIKA Patient presented with chief complaint of worsening of SOB for past couple of months, visited PCP for 2 times, was given some medications that did not help at all. The patient has history of longstanding atrial fibrillation diagnosed about 5 years ago, but patient is unaware of the situation. Physical exam is significant for generalized anasarca. Liver enzymes WNL, though suspicious for cirrhosis as there is irregular liver counter, but synthetic and detoxification function of liver is intact, suggestive of more likely acute new onset CHF exacerbation. TSH 1.35 [id number] score of 6 - Diuresed well - Hold diuretics - Metoprolol succinate 100 Mg daily at night for rate control - Maintain potassium and magnesium greater than 4 and greater than 2 all the time - Strict ins and out, fluid restriction of 2000 cc daily - Low-sodium diet - Patient education regarding CHF and atrial fibrillation - CPAP/BiPAP at night, as needed at daytime - Telemetry monitoring - Eliquis 5 Mg twice daily (Hold due to hematuria, and resume after hematuria improves). - Recommend to keep saturation between 88 to 92%. Pt was having clot on urine, suggestive of obstructive uropathy rather than over diuresis. Creatinine improved to 1.1 Negative by ~ 10L since admission with diuresis initially TTE was significant for diastolic dysfunction, but unable to grade because of atrial fibrillation, LVEF 60 to 65%. Recommended to further evaluate urine protein level, as it was 2+. Dark clots were suspected in the urine on 04/11/25 and was placed on saline bladder irrigation, discontinued on 04/13/2025 Aspirin 81 Mg daily and Eliquis 5 Mg twice daily (hold due to hematuria), metoprolol succinate 100 Mg daily and atorvastatin 40 Mg daily at night to maintain LDL level less than 55 in the setting of past medical history of hypertension, diabetes mellitus and stroke. During discharge, patient should be placed on 40 mg Lasix daily and follow-up with physician assistant surgery Dr. Toney after 1 week of discharge. #Past medical history of acute CVA in 2019 #Hypertension #Hyperlipidemia #Possible CAD LDL 73 Blood pressure soft at this time -Aspirin 81 Mg daily - hold for now -Lipitor 40 Mg daily at night, to maintain LDL level less than 55 in the setting of hypertension, diabetes mellitus type 2 and past medical history of CVA -Antihypertensive will be adjusted given the patient's heart rate and blood pressure, currently started on metoprolol succinate 100 Mg daily at night #DM type II, A1c 6.9 #Rule out cirrhosis #Proteinuria, to be further evaluated Rest of the management deferred to primary hospitalist team. During discharge, the patient should be started on Lasix 20 mg daily, but after 3 days of discharge. Recommended to follow-up with physician assistant surgery Dr. toney within 1 week of discharge. Thank you for consulting cardiology team. We appreciate the opportunity to participate in this patient's care. Cardiology team will continue to follow-up on this patient care. The patient's management plan was discussed with my attending physician MD Escobar Torres MD, PGY3 Attending Provider Attestation/Addendum I have personally seen and examined the patient separately on the above date of service and discussed the plan of care with the resident. I reviewed the resident Dr. Escobar Francis consultation progress note and agree with the resident findings and plan in the note above and have also edited the documentation to reflect my findings and plan. Luis Toney M.D. Interventional Cardiology
--- NOTE | 2025-04-16 15:51 | ESPR_ITS ---
Documentation for date of: 04/16/25 Subjective Subjective Interval history: No overnight events. Denies new or worsening symptoms. Denies fever, chills, headaches, chest pain, sob, cough, GI or urinary symptoms. Tolerating oral intake without nausea or vomiting, urine output is adequate. Currently pending urology recommendations. Exam Vital Signs Temp Pulse Resp BP Pulse Ox O2 Del Method O2 Flow Rate 97.2 F 81 19 145/83 H 100 Nasal Cannula 1 04/16/25 12:00 04/16/25 13:59 04/16/25 13:59 04/16/25 12:00 04/16/25 13:59 04/16/25 12:00 04/16/25 12:00 FiO2 30 04/16/25 12:00 Narrative Exam General: Awake. HEENT: Normocephalic, atraumatic, mucous membranes moist. Heart: Regular rate and rhythm, no murmurs. Lungs: Clear to auscultation with no wheezing or crackles. Abdomen: Soft, nondistended, nontender, positive bowel sounds. ?No guarding or rebound tenderness. noted reddish discoloration of urine without hematuria. Neurologic: Alert and oriented x3, no gross neurological deficit, and patient able to move all 4 extremities. Extremities: No edema. Skin: No rash or ecchymoses. Objective Labs 04/16/25 04:17 04/16/25 04:17 Labs: Laboratory Results - last 24 hr 04/16/25 04:17 WBC 8.0 RBC 5.10 Hgb 13.5 Hct 45.9 MCV 90 MCH 26.5 MCHC 29.4 L RDW Std Deviation 50.3 H Plt Count 192 Neut % (Auto) 76 Lymph % (Auto) 12 [place] % (Auto) 8 Eos % (Auto) 4 Baso % (Auto) 1 Neut # (Auto) 6.0 Lymph # (Auto) 1.0 [place] # (Auto) 0.6 Eos # (Auto) 0.3 Baso # (Auto) 0.1 Immature Gran # (Auto) 0.02 H Absolute Nucleated RBC 0.00 Immature Gran % 0 Nucleated RBC % 0 Sodium 144 Potassium 3.8 Chloride 103 Carbon Dioxide 32.6 H Anion Gap 8 BUN 25 H Creatinine 1.0 Estim Creat Clear Calc 75.6 eGFR > 60 BUN/Creatinine Ratio 25 H Glucose 128 H Calculated Osmolality 293 Calcium 8.5 Corrected Calcium 9.0 Phosphorus 2.4 Magnesium 1.8 Total Bilirubin 1.3 H D AST 28 ALT 27 Alkaline Phosphatase 92 Total Protein 5.7 Albumin 3.4 Globulin 2.3 Albumin/Globulin Ratio 1.5 ABG Interpretation ABG results: 04/04/25 04/04/25 04/04/25 13:42 17:07 18:33 ABG pH 7.14 L* 7.20 L ABG pCO2 107 H* 111 H* ABG pO2 85 78 L ABG HCO3 36 H 39 H ABG O2 Saturation 94 92 ABG Base Excess 4 H 6 H VBG pH 7.48 VBG pCO2 50 VBG pO2 82 H VBG Base Excess 11 H 04/04/25 04/04/25 04/04/25 19:35 22:40 23:52 ABG pH 7.16 L* 7.59 H D 7.53 H ABG pCO2 113 H* 37 D 45 ABG pO2 53 L* D 194 H D 87 D ABG HCO3 40 H 36 H 37 H ABG O2 Saturation 78 L 101 H 99 H ABG Base Excess 7 H 13 H 13 H VBG pH VBG pCO2 VBG pO2 VBG Base Excess 04/05/25 04/05/25 04/05/25 01:20 04:52 13:02 ABG pH 7.52 H 7.47 H 7.30 L D ABG pCO2 47 50 H 74 H* D ABG pO2 60 L D 60 L 64 L ABG HCO3 38 H 37 H 37 H ABG O2 Saturation 94 93 89 L ABG Base Excess 13 H 11 H 7 H VBG pH VBG pCO2 VBG pO2 VBG Base Excess 04/06/25 04/07/25 04/09/25 03:55 10:54 04:42 ABG pH 7.36 7.50 H ABG pCO2 70 H 63 H ABG pO2 101 D 57 L* ABG HCO3 39 H 49 H ABG O2 Saturation 98 91 ABG Base Excess 10 H 21 H VBG pH 7.40 VBG pCO2 67 H D VBG pO2 76 H VBG Base Excess 13 H 04/09/25 04/09/25 04/09/25 06:25 13:10 22:47 ABG pH 7.52 H 7.47 H ABG pCO2 56 H 61 H ABG pO2 79 L D 62 L ABG HCO3 46 H 44 H ABG O2 Saturation 97 92 ABG Base Excess 19 H 16 H VBG pH 7.56 VBG pCO2 52 D VBG pO2 43 D VBG Base Excess 21 H 04/10/25 04/10/25 04/10/25 05:22 12:07 17:17 ABG pH 7.43 7.40 ABG pCO2 64 H 68 H ABG pO2 64 L 77 L ABG HCO3 43 H 42 H ABG O2 Saturation 92 95 ABG Base Excess 15 H 14 H VBG pH 7.55 VBG pCO2 45 VBG pO2 76 H D VBG Base Excess 15 H Quality Measures Quality Measures VTE prophylaxis Advance care planning discussed with:: patient Assessment & Plan Assessment Current Active Medications: Generic Name Dose Route Start Last Admin Trade Name Freq PRN Reason Stop Dose Admin Acetaminophen 650 mg 04/04/25 17:27 Acetaminophen 325 Mg Tablet PO 05/04/25 17:26 Q6H PRN Fever >100 or pain 1-3 Apixaban 5 mg 04/07/25 21:00 04/13/25 08:24 Apixaban 2.5 Mg Tablet PO 05/07/25 20:59 5 mg BID JOSELUIS Administration Atorvastatin Calcium 40 mg 04/07/25 21:00 04/15/25 20:37 Atorvastatin Calcium 20 Mg Tablet PO 05/07/25 20:59 40 mg HS JOSELUIS Administration Alfuzosin Er 10 Mg 0 ea 04/11/25 13:45 04/16/25 09:14 Tablet PO 05/11/25 13:44 1 tablet QDAY JOSELUIS Administration Dextrose 25 ml 04/04/25 17:38 Dextrose 50%-Water Inj 50 Ml Syringe IV 05/04/25 17:37 Q15MIN PRN BG 50-70 responsive npo pt Dextrose 50 ml 04/04/25 17:38 Dextrose 50%-Water Inj 50 Ml Syringe IV 05/04/25 17:37 Q15MIN PRN BG <50 OR BG <70 & pt unresponsive Finasteride 5 mg 04/14/25 16:15 04/16/25 09:14 Finasteride 5 Mg Tablet PO 05/14/25 16:14 5 mg QDAY JOSELUIS Administration Glucagon 1 mg 04/04/25 17:38 Glucagon Inj 1 Mg Vial IM Q15MIN PRN BG <70, and no IV access Insulin Glargine 5 unit 04/06/25 21:00 04/15/25 20:36 Insulin Glargine (Lantus) 5 Unit/0.05 Ml (Per 5 Units) SC 05/06/25 20:59 5 unit HS JOSELUIS Administration Insulin Human Lispro 0 unit 04/07/25 07:30 04/16/25 11:37 Insulin Lispro (Admelog) 1 Unit/0.01 Ml Unit SC 05/07/25 07:29 1 unit ACHS JOSELUIS Administration Protocol Ipratropium [place] 0.5 mg 04/07/25 07:45 04/16/25 13:57 Ipratropium Rt 0.5 Mg/ 2.5 Ml Nebu INH 05/07/25 07:44 0.5 mg Q8HRRT JOSELUIS Administration Levalbuterol HCl 1.25 mg 04/07/25 07:45 04/16/25 13:57 Levalbuterol Rt 1.25 Mg/0.5 Ml Nebu INH 05/07/25 07:44 1.25 mg Q8HRRT JOSELUIS Administration Losartan Potassium 25 mg 04/16/25 09:00 04/16/25 09:14 Losartan Potassium 25 Mg Tablet PO 05/16/25 08:59 25 mg QDAY JOSELUIS Administration Metoprolol Succinate 100 mg 04/06/25 21:00 04/15/25 20:39 Metoprolol Succinate Xl 25 Mg Tabcr PO 05/06/25 20:59 100 mg HS JOSELUIS Administration Ondansetron HCl 4 mg 04/04/25 17:32 Ondansetron Inj 2 Mg/Ml Inj 2 Ml IVP 05/04/25 17:31 Q6H PRN NAUSEA OR VOMITING Protocol Pantoprazole Sodium 40 mg 04/10/25 09:00 04/16/25 09:14 Pantoprazole 40 Mg Tablet PO 05/10/25 08:59 40 mg QDAY JOSELUIS Administration Protocol Sodium Chloride 3 ml 04/04/25 17:27 Sodium Chloride Rt Zo 0.9% 3 Ml Nebu INH 05/04/25 17:26 PRN PRN SOLN Plan 74-year-old male with PMHx of A-fib on ELIQUIS, HTN, T2DM, MOUNIKA/OHS, chronic respiratory failure, on home 2-3 L oxygen, presented with shortness of breath. Admitted for volume overload requiring intubation and aggressive diuresis. Subsequently extubated successfully, but has worsening hypercapnic respiratory failure. Gross Hematuria Asymptomatic pyuria Bilateral hydronephrosis Massive prostamegaly Bustamante showing dark urine, UA showed dark red urine, cloudy, 3+ blood, 1+ protein, LE positive, 3954 RBCs, 426 WBC. Given acute spikes in WBC. Will treat for UTI, although he is asymptomatic. Per chart review, hematuria appears chronic. He was on bladder irrigation overnight, with persistent hematuria. We have consulted urology. ELIQUIS has been held. Hemoglobin otherwise WNL. UA negative for UTI, afebrile, no leukocytosis. Urine culture pending. Stopped CBI, have attempted to get in contact with urology, however have not been able to Will continue to try to speak with urology and also will speak with nephrology +3 blood and ~4000 RBCs in Urinanalysis Pt would benefit from cytoscopy to evaluate gross hematuria Plan: CT abdomen was ordered to rule out malignancy-related pneumaturia which showed bilateral mild hydronephrosis secondary to massive enlarged prostate. ? Continue CIPROFLOXACIN (04/11 to present) ? Continue home ALFUZOSIN ? 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 As stated previously, a few days ago, he had a RR for acute AMS where he was found unresponsive to painful stimuli. At the time MRI was done showing 90% stenosis of the posterior right cerebral artery junction at the P1?P2 segments. This high suspicion for recurrent TIA, likely resulting in central apnea, possible leading to irregular or ataxic breathing, which in his case would explain below findings. Per family patient had stroke 3 years ago, no residual deficit, head CT unremarkable. Carotid ultrasound showed no significant stenosis bilaterally. No recurrence of episodes. ? Continue ATORVASTATIN ? Holding ASPIRIN in settings of hematuria ? Neurology recommended outpatient follow-up, vascular surgery Acute metabolic encephalopathy (resolved) Acute on chronic hypercapnic respiratory failure (resolved) Contraction alkalosis with appropriate respiratory compensation (improving) CHF exacerbation (resolved) Likely central sleep apnea, MOUNIKA, OHS Fluid overload status (resolved) Presented with volume overload and SOB, echo showed EF 65% with diastolic dysfunction. He has been on diuresis since. With a total of 9 L fluid removed. Overall oxygen demand improved from baseline, currently on 1 L NC. Continued on BiPAP HS. However this morning she was found acutely mildly encephalopathic, likely hypercapnia. Blood gas showed contraction alkalosis, compensation respiratory acidosis. Diuresis was held, and he continued on BiPAP intermittently and HS. CO2 improving overall. However mentation still waxing and waning, now higher suspicion for TIA as stated above. ? Maintain K > 4.0 and Mg > 2.0 ? Continue METOPROLOL succinate 100 mg HS ? Holding diuresis to prevent contraction alkalosis ? Continue BiPAP HS and intermittently throughout the day ? Trilogy has been approved and available on discharge Tachycardia (resolved) A-fib, rate controlled CHADVASC2:6 HASBLED: 3 History of A-fib, admission EKG showed A-fib with HR 88. New onset tachycardia, likely 2/2 beta agonist, or reactive to volume loss. Although high risk for RVR given recurrent tachycardia. Overnight had an episode of HR 123 was resolved after METOPROLOL x 1. ? Continue METOPROLOL as above ? HOLDING ELIQUIS 5 mg BID in settings of hematuria ? Maintain K > 4.0 and Mg > 2.0 ? Pending further recommendation from cardiology HTN HLD Currently normotensive with METOPROLOL as above. ? Continue home LOSARTAN 25 mg daily ? Continue home ATORVASTATIN Prerenal azotemia (improving) Baseline CR 1.1. Has new with CR 1.4 > 1.7, likely 2/2 volume loss 2/2 diuresis. We have repleted with 1 L NS, and withheld diuresis for now. Nephrology on board, recommended no fluids or diuresis, just monitoring output and renal function. He has adequate urine output, and renal function improving overall. Urine studies suggesting prerenal azotemia, possible early kidney disease in settings of diabetes or chronic hypertension. ? Renally dose meds, avoid overdiuresis and NEPHROTOXINS ? Daily CMP Pneumonia, CAP versus aspiration Reactive leukocytosis Suspected bibasilar pneumonia on CXR from 04/04. Suspected aspiration given BiPAP use, although currently denies cough. Afebrile, leukocytosis likely reactive 2/2 STEROIDS. Repeat CXR 04/09 showed no pneumonia. Pancultures have all been negative. AZITHROMYCIN and ZOSYN were discontinued. ? Monitor closely Hepatomegaly Hyperbilirubinemia, direct Broad differential including: Gilbert syndrome, ineffective erythropoiesis, or hemolysis. CT showed hepatomegaly. Liver ultrasound showed borderline thickened gallbladder, again hepatomegaly, fatty infiltrate of the liver, no focal liver lesion. LFTs overall WNL. However, total bilirubin alternating between 1.5 and 4.5, and appears chronic. He denies abdominal pain. Low suspicion for cholangitis. Acute hepatitis panel was negative, although he is not immunized. ? Recommended outpatient GI workup for ? Recommended hepatitis B amputation series T2DM Relatively controlled, A1c 6.9 ? INSULIN sliding scale ? Accu-Cheks Electrolyte abnormalities ? Replete as needed Normocytic normochromic anemia (resolved) Hemoglobin stable. ? Daily labs #Health Maintenance Disposition: Telemetry DVT prophylaxis: SCDs GI prophylaxis: Protonix Diet: Cardiac CODE STATUS: Full Case was discussed with attending physician. Vijay Bess DO PGY II This document was transcribed using voice recognition technology. Minor inaccuracies may be present. Attending Provider Attestation/Addendum I attest that I was physically present for the evaluation, physical examination, lab and imaging review of the patient with the residents. I discussed the case with the residents and agree with the findings and plans of care as documented above. At bedside today, patient states she is feeling well and denies any new complaints. Appears comfortable. Kidney functions continues to improve. Hemoglobin is slightly decreased compared to yesterday, 13.5 today. Continues to have pink urine in his urinary bag, does not have any clots or sediments. Completed his antibiotics course. Continues to be on alfuzosin and finasteride. Awaiting urology recommendations. Deana Lion MD
--- NOTE | 2025-04-16 19:17 | ESCONSULT_ITS ---
RE: DESEAN MCCORMACK : 1950 DATE OF CONSULTATION: 04/16/2025 This is a hospital consultation. The patient is seen. Chart is reviewed. Consult is dictated. CHIEF COMPLAINT: 1. Urinary retention. 2. Giant prostatomegaly. 3. Mild bilateral hydronephrosis as a result of large prostate gland. COMORBID CONDITIONS: 1. Noninsulin-dependent diabetes mellitus. 2. Hypertension. 3. Coronary artery disease. 4. Chronic AFib, on Eliquis. HISTORY OF PRESENT ILLNESS: This is a 74-year-old gentleman. This patient came to the emergency room for evaluation of acute encephalopathy. The patient in the past has seen another urologist. He is on medication for his prostate gland and no treatment was instituted for his giant prostatomegaly. Denies any prostate surgery before. The patient denies any history of COPD; however, patient does have Trelegy as a home medication. He also has OSHA/OHS initially using Trelegy machine. Denies any history of gross hematuria or dysuria. The patient was in the emergency room hemodynamically unstable. PROVISIONAL DIAGNOSES: 1. Acute encephalopathy. 2. Acute on chronic hypoxic hypercarbic respiratory failure. 3. Chronic atrial fibrillation. 4. Onset of congestive heart failure. 5. Respiratory acidosis with inadequate renal compensation. The patient is a poor historian. History is obtained from the family. Past medical history, family history, review of the system, personal history, please refer to patient's history form dated 04/04/2025. NARRATIVE EXAMINATION: GENERAL: The patient is extremely lethargic. He is lying comfortably in the bed. VITAL SIGNS: Stable. NECK: Supple without lesion. HEART: No cardiomegaly. CHEST: Symmetrical. VARIOUS LABORATORIES: WBC is 7.0. BUN is 29 and creatinine 1.2. The patient has indwelling Bustamante catheter. I have reviewed his CAT scan. This revealed mild bilateral hydronephrosis and giant prostatomegaly. RECOMMENDATION: 1. Continue with Uroxatral 10 mg p.o. daily. 2. Continue catheter drainage. 3. Start on tamsulosin 0.4 mg p.o. daily and finasteride 5 mg p.o. daily. 4. The patient is going to need cystoscopic examination, ultrasound of the prostate gland to be done in my office and patient will be scheduled for either simple robotic prostate[facility] at [facility] or Aquablation to be done at [facility]. The patient needs to be stable prior to doing this test and also he will need to have a cardiology clearance. All above issues were discussed with the patient in detail. Questions were answered to their satisfaction. The patient will be followed in my urology office after discharge from the hospital. DT: 16:36:26 TT: 19:15:00 Ref: [id number] - TID: [id number]
[2025-04-16] MEDS: METOPROLOL SUCCINATE XL 25 MG TABCR 100 MG PO (21:13)
[2025-04-16] MEDS: ATORVASTATIN CALCIUM 20 MG TABLET 40 MG PO (21:13)
[2025-04-16] MEDS: INSULIN GLARGINE (Lantus) 5 UNIT/0.05 ML (PER 5 UNITS) SC (21:14)
[2025-04-17] VITALS (12 sets, daily range): BP systolic 145–156; BP diastolic 65–99; PULSE 71–94; RESP 12–24; TEMP 36–36.9; O2SAT 95–100; BMI 35.2
[2025-04-17] MEDS: LEVALBUTEROL RT 1.25 MG/0.5 ML NEBU INH ×3 (06:48→22:49)
[2025-04-17] MEDS: IPRATROPIUM RT 0.5 MG/ 2.5 ML NEBU INH ×3 (06:48→22:49)
[2025-04-17] MEDS: INSULIN LISPRO (AdmeLOG) 1 UNIT/0.01 ML UNIT SC ×2 (08:03→16:42)
[2025-04-17] MEDS: LOSARTAN POTASSIUM 25 MG TABLET 50 MG PO (08:06)
[2025-04-17] MEDS: PANTOPRAZOLE 40 MG TABLET PO (08:06)
[2025-04-17] MEDS: ALFUZOSIN ER 10 MG TABLET PO (08:06)
[2025-04-17] MEDS: FINASTERIDE 5 MG TABLET PO (08:07)
--- NOTE | 2025-04-17 08:30 | PD.RESPRO ---
Documentation for date of: 04/17/25 Subjective Subjective Interval history: Kade Dalal is a 74-year-old male with PMHx of A-fib on ELIQUIS, HTN, T2DM, MOUNIKA/OHS, chronic respiratory failure, on home 2-3 L oxygen, admitted for volume overload requiring intubation and aggressive diuresis and SOB. Echo showed EF 65% with diastolic dysfunction. He has been on diuresis since. With a total of 9 L fluid removed. Overall oxygen demand improved from baseline, currently on 1 L NC. Continued on BiPAP HS. Patient received 500 cc NS x2 after worsening contraction alkalosis was shown on chem panel and vbg/abg. Cardiology is considering DIAMOX if CO2 remains elevated. Nephrology is consulted in for likely due to prerenal azotemia secondary to over-diuresis. 04/10/2025 Patient was seen and examined. No acute events overnight. Patient is resting in bed and does not have any complaints or concerns. Patient states that he has been using the bipap machine at night even though at home he has not been taking it as much. Patient endorses making urine yesterday, but not any today, and passing stool. Patient denies having history of being unable to make urine in the past. Patient denies fatigue, dizziness, weakness, chest pain, shortness of breath, abdominal pain, dysuria. 04/11/2025 Patient had a rapid called yesterday evening for altered mental status, was found difficult to awaken, eventually became a&o x4 after multiple sternal rubs and returning back to baseline. This morning patient was doing well, vital signs stable, no new concerns/complaints. Patient denies fever, chest pain, shortness of breath. Patient's has been making urine, 1800 ml last 24 hr. Patient's moss bag appeared very dark in color this morning, maybe from traumatic insertion, will continue to monitor; will be given more IV fluids today. 04/12/2025 No acute events overnight. Patient has been making dark urine. Patient was not on fluids overnight, had improved creatinine levels this morning. Patient this morning does not have any new complaints or concerns. Patient denies having any fever, chest pain, shortness of breath. 04/13/2025 No acute events overnight. Patient continues to make dark red urine. Patient's creatinine continues to improve (1.7 today). Patient had bladder irrigation yesterday, discontinuing today. Patient this morning does not have any new complaints or concerns. Patient denies having any fever, chest pain, shortness of breath. 04/14/2025 No acute events overnight. Patient continues to make dark red urine. Patient's creatinine continues to improve (1.4 today). Patient this morning does not have any new complaints or concerns. Patient denies having any fever, chest pain, shortness of breath. 04/15/25 Patient seen and examined at bedside. No new complaints. Denies chest pain, SOB or fever. Greatly improved hematuria in moss with good urine output. Cr continues to improve 1.1 today. 04/16/25 Patient seen and examined at bedside. No new complaints. Denies chest pain, SOB or fever. Good urine output with light red color, improving hematuria. Cr continues to improve 1.0 today. 04/17/25 No acute overnight events. Patient seen and examined at bedside. No new complaints. Denies chest pain, SOB or fever. Continued urine output with light red color, improving hematuria. Cr staying improved, 1.0. Exam Vital Signs Temp Pulse Resp BP Pulse Ox O2 Del Method O2 Flow Rate 98.4 F 75 18 153/90 H 100 BiPAP 3 04/17/25 04:00 04/17/25 08:06 04/17/25 06:49 04/17/25 08:06 04/17/25 06:49 04/17/25 04:00 04/17/25 06:49 FiO2 30 04/17/25 06:49 Narrative Exam Gen: alert and oriented x3, NAD, vitals reviewed Head/Neck: NCAT, no gross LAD ENT: EOMI grossly, anicteric sclerae, mmm Resp: Lungs CTAB, normal respiratory effort CV: regular rhythm, regular rate; extremities well perfused GI: no distension; no tenderness, normal bowel sounds present Ext: no clubbing, cyanosis. no Lower extremity edema Skin: chronic venous stasis, no new rash or lesions on visual exam Neuro/MSK: moves all extremities Psych: normal mood; appropriate affect Objective Labs 04/17/25 09:47 04/17/25 09:47 ABG Interpretation ABG results: 04/04/25 04/04/25 04/04/25 13:42 17:07 18:33 ABG pH 7.14 L* 7.20 L ABG pCO2 107 H* 111 H* ABG pO2 85 78 L ABG HCO3 36 H 39 H ABG O2 Saturation 94 92 ABG Base Excess 4 H 6 H VBG pH 7.48 VBG pCO2 50 VBG pO2 82 H VBG Base Excess 11 H 04/04/25 04/04/25 04/04/25 19:35 22:40 23:52 ABG pH 7.16 L* 7.59 H D 7.53 H ABG pCO2 113 H* 37 D 45 ABG pO2 53 L* D 194 H D 87 D ABG HCO3 40 H 36 H 37 H ABG O2 Saturation 78 L 101 H 99 H ABG Base Excess 7 H 13 H 13 H VBG pH VBG pCO2 VBG pO2 VBG Base Excess 04/05/25 04/05/25 04/05/25 01:20 04:52 13:02 ABG pH 7.52 H 7.47 H 7.30 L D ABG pCO2 47 50 H 74 H* D ABG pO2 60 L D 60 L 64 L ABG HCO3 38 H 37 H 37 H ABG O2 Saturation 94 93 89 L ABG Base Excess 13 H 11 H 7 H VBG pH VBG pCO2 VBG pO2 VBG Base Excess 04/06/25 04/07/25 04/09/25 03:55 10:54 04:42 ABG pH 7.36 7.50 H ABG pCO2 70 H 63 H ABG pO2 101 D 57 L* ABG HCO3 39 H 49 H ABG O2 Saturation 98 91 ABG Base Excess 10 H 21 H VBG pH 7.40 VBG pCO2 67 H D VBG pO2 76 H VBG Base Excess 13 H 04/09/25 04/09/25 04/09/25 06:25 13:10 22:47 ABG pH 7.52 H 7.47 H ABG pCO2 56 H 61 H ABG pO2 79 L D 62 L ABG HCO3 46 H 44 H ABG O2 Saturation 97 92 ABG Base Excess 19 H 16 H VBG pH 7.56 VBG pCO2 52 D VBG pO2 43 D VBG Base Excess 21 H 04/10/25 04/10/25 04/10/25 05:22 12:07 17:17 ABG pH 7.43 7.40 ABG pCO2 64 H 68 H ABG pO2 64 L 77 L ABG HCO3 43 H 42 H ABG O2 Saturation 92 95 ABG Base Excess 15 H 14 H VBG pH 7.55 VBG pCO2 45 VBG pO2 76 H D VBG Base Excess 15 H Quality Measures Quality Measures VTE prophylaxis Advance care planning discussed with:: patient Assessment & Plan Assessment Current Active Medications: Generic Name Dose Route Start Last Admin Trade Name Freq PRN Reason Stop Dose Admin Acetaminophen 650 mg 04/04/25 17:27 Acetaminophen 325 Mg Tablet PO 05/04/25 17:26 Q6H PRN Fever >100 or pain 1-3 Atorvastatin Calcium 40 mg 04/07/25 21:00 04/16/25 21:13 Atorvastatin Calcium 20 Mg Tablet PO 05/07/25 20:59 40 mg HS JOSELUIS Administration Alfuzosin Er 10 Mg 0 ea 04/11/25 13:45 04/17/25 08:06 Tablet PO 05/11/25 13:44 1 tablet QDAY JOSELUIS Administration Dextrose 25 ml 04/04/25 17:38 Dextrose 50%-Water Inj 50 Ml Syringe IV 05/04/25 17:37 Q15MIN PRN BG 50-70 responsive npo pt Dextrose 50 ml 04/04/25 17:38 Dextrose 50%-Water Inj 50 Ml Syringe IV 05/04/25 17:37 Q15MIN PRN BG <50 OR BG <70 & pt unresponsive Finasteride 5 mg 04/14/25 16:15 04/17/25 08:07 Finasteride 5 Mg Tablet PO 05/14/25 16:14 5 mg QDAY JOSELUIS Administration Glucagon 1 mg 04/04/25 17:38 Glucagon Inj 1 Mg Vial IM Q15MIN PRN BG <70, and no IV access Insulin Glargine 5 unit 04/06/25 21:00 04/16/25 21:14 Insulin Glargine (Lantus) 5 Unit/0.05 Ml (Per 5 Units) SC 05/06/25 20:59 5 unit HS JOSELUIS Administration Insulin Human Lispro 0 unit 04/07/25 07:30 04/17/25 08:03 Insulin Lispro (Admelog) 1 Unit/0.01 Ml Unit SC 05/07/25 07:29 1 unit ACHS JOSELUIS Administration Protocol Ipratropium Artemas 0.5 mg 04/07/25 07:45 04/17/25 06:48 Ipratropium Rt 0.5 Mg/ 2.5 Ml Nebu INH 05/07/25 07:44 0.5 mg Q8HRRT JOSELUIS Administration Levalbuterol HCl 1.25 mg 04/07/25 07:45 04/17/25 06:48 Levalbuterol Rt 1.25 Mg/0.5 Ml Nebu INH 05/07/25 07:44 1.25 mg Q8HRRT JOSELUIS Administration Losartan Potassium 50 mg 04/17/25 09:00 04/17/25 08:06 Losartan Potassium 25 Mg Tablet PO 05/17/25 08:59 50 mg QDAY JOSELUIS Administration Metoprolol Succinate 100 mg 04/06/25 21:00 04/16/25 21:13 Metoprolol Succinate Xl 25 Mg Tabcr PO 05/06/25 20:59 100 mg HS JOSELUIS Administration Ondansetron HCl 4 mg 04/04/25 17:32 Ondansetron Inj 2 Mg/Ml Inj 2 Ml IVP 05/04/25 17:31 Q6H PRN NAUSEA OR VOMITING Protocol Pantoprazole Sodium 40 mg 04/10/25 09:00 04/17/25 08:06 Pantoprazole 40 Mg Tablet PO 05/10/25 08:59 40 mg QDAY JOSELUIS Administration Protocol Sodium Chloride 3 ml 04/04/25 17:27 Sodium Chloride Rt Zo 0.9% 3 Ml Nebu INH 05/04/25 17:26 PRN PRN SOLN Tamsulosin HCl 0.4 mg 04/18/25 09:00 Tamsulosin Hcl 0.4 Mg Capsule PO 05/18/25 08:59 QDAY JOSELUIS Plan 74-year-old male with PMHx of A-fib on ELIQUIS, HTN, T2DM, MOUNIKA/OHS, chronic respiratory failure, on home 2-3 L oxygen, presented with shortness of breath. Admitted for volume overload requiring intubation and aggressive diuresis. Subsequently extubated successfully, but has worsening hypercapnic respiratory failure. Nephrology consulted for management of . # Acute Kidney Injury, resolving Likely ATN with Cr now improving vs potential obstructive etiology; Patient initially noted to have with current Cr 3.0 (over baseline ~1.0). Suspect pre-renal due to over-diuresis in context of chf exacerbation vs obstructive (CT AP shows: Massive prostatomegaly causing mild bilateral hydronephrosis and early wall thickening in the urinary bladder). Holding fluids due to patient's volume status appearing full. Denies dizziness, weakness. Good urine output. Continued improvement regarding hematuria in Moss bag - Will follow up with Urology; outpatient cystoscopy. - Fluid Restrict 2L daily - Cr continues to be improved, 1.0 currently - renally dose medications - hold nephrotoxic meds - Will most likely need to discharge to SNF/rehab placement Acute metabolic encephalopathy Acute on chronic hypercapnic respiratory failure Contraction alkalosis with appropriate respiratory compensation CHF exacerbation MOUNIKA, OHS Fluid overload status (resolved) Tachycardia A-fib HTN HLD Pneumonia, CAP versus aspiration Reactive leukocytosis Hepatomegaly Hyperbilirubinemia, direct Normocytic normochromic anemia Hematuria T2DM Hx of CVA. Electrolyte abnormalities Above problems Medically managed through the primary team Thank you for allowing us to take part in the care of Mr. Dalal Plan of care discussed with attending, Dr. Jorgito Srivastava MD PGY-1 Attending Provider Attestation/Addendum Patient seen and examined with resident physician Dr. Srivastava note reviewed, agree with findings and recommendations. Clinically patient looks rather dehydrated. Hemoglobin 16.9. Patient seems to be sleepy when I examined him. Could not get much information. Spoke to sister. Hold off on diuretics. Give 1 L IV fluids with close monitoring of urinary output and creatinine. Plan of care discussed with Sister Wendy at bedside. 04/17/2025 patient currently seen in telemetry. Patient currently on Nasal canula. Hematuria improved. Creatinine improved. Off diuretics. Hold off on fluids for now. Clinically looks euvolemic. Patient seen by Dr. Watts-talked to him. Recommended finasteride and will see him as an outpatient. Patient needs a TURP. Spoke to PCP-renal guy stable for discharge.
[2025-04-17 10:14] LABS: Basophils # (Auto) 0.1 Thou/mm3 (0.0-0.2); Basophils % (Auto) 1 % (0-2.5); Eosinophils # (Auto) 0.3 Thou/mm3 (0.0-0.5); Eosinophils % (Auto) 4 % (0-10); Hematocrit 45.1 % (41.0-53.0); Hemoglobin 13.9 g/dL (13.5-16.0); Immature Granulocytes Auto 0.02 Thou/mm3 (0.00-0.00); Lymphocytes # (Auto) 0.8 Thou/mm3 (1.0-4.8); Lymphocytes % (Auto) 9 % (10-50); Mean Corpuscular HGB Conc 30.8 g/dl (31.0-37.0); Mean Corpuscular Hemoglobin 27.0 pg (25.0-35.0); Mean Corpuscular Volume 88 fL (80-100); Monocytes # (Auto) 0.6 Thou/mm3 (0.0-0.8); Monocytes % (Auto) 7 % (0-12); Neutrophils # (Auto) 6.5 Thou/mm3 (1.8-7.7); Neutrophils % (Auto) 79 % (37-80); Nucleated Red Blood Cell # 0.00 Thou/mm3 (0.00-0.00); Nucleated Red Blood Cell % 0 /100 WBC (0); Platelet Count 221 Thou/mm3 (140-440); RDW Standard Deviation 49.2 fL (35.1-43.9); Red Blood Count 5.15 Miln/mm3 (4.50-5.90); White Blood Count 8.2 Thou/mm3 (3.8-10.6)
[2025-04-17 11:22] LABS: Alanine Aminotransferase 32 U/L (10-49); Albumin, Serum 3.6 gm/dL (3.4-4.8); Albumin/Globulin Ratio 1.6 (1.2-2.2); Alkaline Phosphatase 102 U/L (46-116); Aspartate Amino Transferase 28 U/L (0-34); BUN/Creatinine Ratio 23 Ratio (12-20); Bilirubin,Total 1.4 mg/dL (0.3-1.2); Blood Urea Nitrogen 23 mg/dL (9-23); Calcium 9.2 mg/dL (8.3-10.6); Calcium (Corrected) 9.5 mg/dL (8.5-10.1); Carbon Dioxide 35.8 mMol/L (20.0-31.0); Creatinine (Component) 1.0 mg/dL (0.6-1.3); Estimated Creatinine Clearance 76.0 mL/min (>60); Globulin 2.2 gm/dL (2.3-3.5); Glucose 146 mg/dL (74-106); Magnesium 1.6 mg/dL (1.6-2.6); Phosphorous 2.7 mg/dL (2.4-5.1); Total Protein 5.8 gm/dL (5.7-8.2); eGFR > 60 See Note
[2025-04-17 11:27] LABS: Anion Gap 4 (7-16); Chloride 104 mMol/L (98-107); Osmolality,Calculated 293 (275-295); Potassium 4.4 mMol/L (3.4-5.1); Sodium 144 mMol/L (136-145)
--- NOTE | 2025-04-17 14:31 | PC.SS ---
Rounding Note: Dr. Walters consult is pending.
--- NOTE | 2025-04-17 14:35 | ESPR_ITS ---
<Statement entered by Vijay Bess MD - 04/17/25 18:00> A 74-year-old male with a complex medical history including atrial fibrillation on Eliquis, hypertension, type 2 diabetes, obstructive sleep apnea (MOUNIKA), obesity hypoventilation syndrome (OHS), and chronic respiratory failure on home oxygen presented with worsening shortness of breath. He was admitted for acute volume overload, requiring intubation and aggressive diuresis. After successful extubation, he continued to experience hypercapnic respiratory failure managed with BiPAP, intermittent oxygen, and adjustment of diuretics. At one point, he was encephalopathic, likely due to hypercapnia, though concerns for a transient ischemic attack (TIA) emerged after imaging showed 90% stenosis in the posterior right cerebral artery. No further episodes have occurred, and neurology recommended outpatient follow-up. During hospitalization, the patient developed gross hematuria with chronic asymptomatic pyuria and was found to have massive prostate enlargement and bilateral hydronephrosis. UA showed significant hematuria without signs of infection. He was started on antibiotics for presumed UTI despite being asymptomatic. CBI was stopped, and urology was consulted for further evaluation, with cystoscopy recommended. Eliquis was held due to bleeding concerns, and his hemoglobin remained stable. I?ve reviewed the note and agree with the resident's assessment and plan, with the exceptions outlined above. I personally went over the labs, imaging, home medications, and prior records, and examined the patient. The case was also reviewed with the attending physician. Please note: this document was transcribed using voice recognition technology; minor inaccuracies may be present. Vijay Bess DO PGY II Documentation for date of: 04/17/25 Subjective Subjective Interval history: Patient seen at bedside. No acute overnight events. Patient is on 3 L of oxygen. Patient ate meals today. No chest pain, no shortness of breath, no abdominal pain, no nausea, and no vomiting. Exam Vital Signs Temp Pulse Resp BP Pulse Ox O2 Del Method O2 Flow Rate 98.2 F 86 24 H 145/78 H 99 Nasal Cannula 3 04/17/25 12:00 04/17/25 14:04 04/17/25 14:04 04/17/25 12:00 04/17/25 14:04 04/17/25 12:00 04/17/25 14:04 FiO2 30 04/17/25 06:49 Narrative Exam General: Awake. HEENT: Normocephalic, atraumatic, mucous membranes moist. Heart: Regular rate and rhythm, no murmurs. Lungs: Clear to auscultation with no wheezing or crackles. Abdomen: Soft, nondistended, nontender, positive bowel sounds. ?No guarding or rebound tenderness. noted reddish discoloration of urine without hematuria. Neurologic: Alert and oriented x3, no gross neurological deficit, and patient able to move all 4 extremities. Extremities: No edema. Skin: No rash or ecchymoses. Objective Labs 04/17/25 09:47 04/17/25 09:47 Labs: Laboratory Results - last 24 hr 04/17/25 09:47 WBC 8.2 RBC 5.15 Hgb 13.9 Hct 45.1 MCV 88 MCH 27.0 MCHC 30.8 L RDW Std Deviation 49.2 H Plt Count 221 Neut % (Auto) 79 Lymph % (Auto) 9 L Benson % (Auto) 7 Eos % (Auto) 4 Baso % (Auto) 1 Neut # (Auto) 6.5 Lymph # (Auto) 0.8 L Benson # (Auto) 0.6 Eos # (Auto) 0.3 Baso # (Auto) 0.1 Immature Gran # (Auto) 0.02 H Absolute Nucleated RBC 0.00 Immature Gran % 0 Nucleated RBC % 0 Sodium 144 Potassium 4.4 D Chloride 104 Carbon Dioxide 35.8 H Anion Gap 4 L BUN 23 Creatinine 1.0 Estim Creat Clear Calc 76.0 eGFR > 60 BUN/Creatinine Ratio 23 H Glucose 146 H Calculated Osmolality 293 Calcium 9.2 Corrected Calcium 9.5 Phosphorus 2.7 Magnesium 1.6 Total Bilirubin 1.4 H AST 28 ALT 32 Alkaline Phosphatase 102 Total Protein 5.8 Albumin 3.6 Globulin 2.2 L Albumin/Globulin Ratio 1.6 ABG Interpretation ABG results: 04/04/25 04/04/25 04/04/25 13:42 17:07 18:33 ABG pH 7.14 L* 7.20 L ABG pCO2 107 H* 111 H* ABG pO2 85 78 L ABG HCO3 36 H 39 H ABG O2 Saturation 94 92 ABG Base Excess 4 H 6 H VBG pH 7.48 VBG pCO2 50 VBG pO2 82 H VBG Base Excess 11 H 04/04/25 04/04/25 04/04/25 19:35 22:40 23:52 ABG pH 7.16 L* 7.59 H D 7.53 H ABG pCO2 113 H* 37 D 45 ABG pO2 53 L* D 194 H D 87 D ABG HCO3 40 H 36 H 37 H ABG O2 Saturation 78 L 101 H 99 H ABG Base Excess 7 H 13 H 13 H VBG pH VBG pCO2 VBG pO2 VBG Base Excess 04/05/25 04/05/25 04/05/25 01:20 04:52 13:02 ABG pH 7.52 H 7.47 H 7.30 L D ABG pCO2 47 50 H 74 H* D ABG pO2 60 L D 60 L 64 L ABG HCO3 38 H 37 H 37 H ABG O2 Saturation 94 93 89 L ABG Base Excess 13 H 11 H 7 H VBG pH VBG pCO2 VBG pO2 VBG Base Excess 04/06/25 04/07/25 04/09/25 03:55 10:54 04:42 ABG pH 7.36 7.50 H ABG pCO2 70 H 63 H ABG pO2 101 D 57 L* ABG HCO3 39 H 49 H ABG O2 Saturation 98 91 ABG Base Excess 10 H 21 H VBG pH 7.40 VBG pCO2 67 H D VBG pO2 76 H VBG Base Excess 13 H 04/09/25 04/09/25 04/09/25 06:25 13:10 22:47 ABG pH 7.52 H 7.47 H ABG pCO2 56 H 61 H ABG pO2 79 L D 62 L ABG HCO3 46 H 44 H ABG O2 Saturation 97 92 ABG Base Excess 19 H 16 H VBG pH 7.56 VBG pCO2 52 D VBG pO2 43 D VBG Base Excess 21 H 04/10/25 04/10/25 04/10/25 05:22 12:07 17:17 ABG pH 7.43 7.40 ABG pCO2 64 H 68 H ABG pO2 64 L 77 L ABG HCO3 43 H 42 H ABG O2 Saturation 92 95 ABG Base Excess 15 H 14 H VBG pH 7.55 VBG pCO2 45 VBG pO2 76 H D VBG Base Excess 15 H Quality Measures Quality Measures VTE prophylaxis Advance care planning discussed with:: patient Assessment & Plan Assessment Current Active Medications: Generic Name Dose Route Start Last Admin Trade Name Freq PRN Reason Stop Dose Admin Acetaminophen 650 mg 04/04/25 17:27 Acetaminophen 325 Mg Tablet PO 05/04/25 17:26 Q6H PRN Fever >100 or pain 1-3 Atorvastatin Calcium 40 mg 04/07/25 21:00 04/16/25 21:13 Atorvastatin Calcium 20 Mg Tablet PO 05/07/25 20:59 40 mg HS JOSELUIS Administration Alfuzosin Er 10 Mg 0 ea 04/11/25 13:45 04/17/25 08:06 Tablet PO 05/11/25 13:44 1 tablet QDAY JOSELUIS Administration Dextrose 25 ml 04/04/25 17:38 Dextrose 50%-Water Inj 50 Ml Syringe IV 05/04/25 17:37 Q15MIN PRN BG 50-70 responsive npo pt Dextrose 50 ml 04/04/25 17:38 Dextrose 50%-Water Inj 50 Ml Syringe IV 05/04/25 17:37 Q15MIN PRN BG <50 OR BG <70 & pt unresponsive Finasteride 5 mg 04/14/25 16:15 04/17/25 08:07 Finasteride 5 Mg Tablet PO 05/14/25 16:14 5 mg QDAY JOSELUIS Administration Glucagon 1 mg 04/04/25 17:38 Glucagon Inj 1 Mg Vial IM Q15MIN PRN BG <70, and no IV access Insulin Glargine 5 unit 04/06/25 21:00 04/16/25 21:14 Insulin Glargine (Lantus) 5 Unit/0.05 Ml (Per 5 Units) SC 05/06/25 20:59 5 unit HS JOSELUIS Administration Insulin Human Lispro 0 unit 04/07/25 07:30 04/17/25 13:36 Insulin Lispro (Admelog) 1 Unit/0.01 Ml Unit SC 05/07/25 07:29 Not Given ACHS JOSELUIS Protocol Ipratropium [place] 0.5 mg 04/07/25 07:45 04/17/25 14:04 Ipratropium Rt 0.5 Mg/ 2.5 Ml Nebu INH 05/07/25 07:44 0.5 mg Q8HRRT JOSELUIS Administration Levalbuterol HCl 1.25 mg 04/07/25 07:45 04/17/25 14:04 Levalbuterol Rt 1.25 Mg/0.5 Ml Nebu INH 05/07/25 07:44 1.25 mg Q8HRRT JOSELUIS Administration Losartan Potassium 50 mg 04/17/25 09:00 04/17/25 08:06 Losartan Potassium 25 Mg Tablet PO 05/17/25 08:59 50 mg QDAY JOSELUIS Administration Metoprolol Succinate 100 mg 04/06/25 21:00 04/16/25 21:13 Metoprolol Succinate Xl 25 Mg Tabcr PO 05/06/25 20:59 100 mg HS JOSELUIS Administration Ondansetron HCl 4 mg 04/04/25 17:32 Ondansetron Inj 2 Mg/Ml Inj 2 Ml IVP 05/04/25 17:31 Q6H PRN NAUSEA OR VOMITING Protocol Pantoprazole Sodium 40 mg 04/10/25 09:00 04/17/25 08:06 Pantoprazole 40 Mg Tablet PO 05/10/25 08:59 40 mg QDAY JOSELUIS Administration Protocol Sodium Chloride 3 ml 04/04/25 17:27 Sodium Chloride Rt Zo 0.9% 3 Ml Nebu INH 05/04/25 17:26 PRN PRN SOLN Tamsulosin HCl 0.4 mg 04/18/25 09:00 Tamsulosin Hcl 0.4 Mg Capsule PO 05/18/25 08:59 QDAY JOSELUIS Plan Assessment: 74-year-old male with PMHx of A-fib on ELIQUIS, HTN, T2DM, MOUNIKA/OHS, chronic respiratory failure, on home 2-3 L oxygen, presented with shortness of breath. Admitted for volume overload requiring intubation and aggressive diuresis. Subsequently extubated successfully, but has worsening hypercapnic respiratory failure. Gross Hematuria Asymptomatic pyuria Bilateral hydronephrosis Massive prostamegaly [place] showing dark urine, UA showed dark red urine, cloudy, 3+ blood, 1+ protein, LE positive, 3954 RBCs, 426 WBC. Given acute spikes in WBC. Will treat for UTI, although he is asymptomatic. Per chart review, hematuria appears chronic. He was on bladder irrigation overnight, with persistent hematuria. We have consulted urology. ELIQUIS has been held. Hemoglobin otherwise WNL. UA negative for UTI, afebrile, no leukocytosis. Urine culture pending. Stopped CBI +3 blood and ~4000 RBCs in Urinanalysis Pt would benefit from cytoscopy to evaluate gross hematuria Plan: CT abdomen was ordered to rule out malignancy-related pneumaturia which showed bilateral mild hydronephrosis secondary to massive enlarged prostate. ? Continue CIPROFLOXACIN (04/11 to present) ? Continue home ALFUZOSIN ? Urology consulted, see recs ? 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 As stated previously, a few days ago, he had a RR for acute AMS where he was found unresponsive to painful stimuli. At the time MRI was done showing 90% stenosis of the posterior right cerebral artery junction at the P1?P2 segments. This high suspicion for recurrent TIA, likely resulting in central apnea, possible leading to irregular or ataxic breathing, which in his case would explain below findings. Per family patient had stroke 3 years ago, no residual deficit, head CT unremarkable. Carotid ultrasound showed no significant stenosis bilaterally. No recurrence of episodes. ? Continue ATORVASTATIN ? Holding ASPIRIN in settings of hematuria ? Neurology recommended outpatient follow-up, vascular surgery Acute metabolic encephalopathy (resolved) Acute on chronic hypercapnic respiratory failure (resolved) Contraction alkalosis with appropriate respiratory compensation (improving) CHF exacerbation (resolved) Likely central sleep apnea, MOUNIKA, OHS Fluid overload status (resolved) Presented with volume overload and SOB, echo showed EF 65% with diastolic dysfunction. He has been on diuresis since. With a total of 9 L fluid removed. Overall oxygen demand improved from baseline, currently on 1 L NC. Continued on BiPAP HS. However this morning she was found acutely mildly encephalopathic, likely hypercapnia. Blood gas showed contraction alkalosis, compensation respiratory acidosis. Diuresis was held, and he continued on BiPAP intermittently and HS. CO2 improving overall. However mentation still waxing and waning, now higher suspicion for TIA as stated above. ? Maintain K > 4.0 and Mg > 2.0 ? Continue METOPROLOL succinate 100 mg HS ? Holding diuresis to prevent contraction alkalosis ? Continue BiPAP HS and intermittently throughout the day ? Trilogy has been approved and available on discharge Tachycardia (resolved) A-fib, rate controlled CHADVASC2:6 HASBLED: 3 History of A-fib, admission EKG showed A-fib with HR 88. New onset tachycardia, likely 2/2 beta agonist, or reactive to volume loss. Although high risk for RVR given recurrent tachycardia. Overnight had an episode of HR 123 was resolved after METOPROLOL x 1. ? Continue METOPROLOL as above ? HOLDING ELIQUIS 5 mg BID in settings of hematuria ? Maintain K > 4.0 and Mg > 2.0 ? Pending further recommendation from cardiology HTN HLD Currently normotensive with METOPROLOL as above. ? Continue home LOSARTAN 25 mg daily ? Continue home ATORVASTATIN Prerenal azotemia (improving) Baseline CR 1.1. Has new with CR 1.4 > 1.7, likely 2/2 volume loss 2/2 diuresis. We have repleted with 1 L NS, and withheld diuresis for now. Nephrology on board, recommended no fluids or diuresis, just monitoring output and renal function. He has adequate urine output, and renal function improving overall. Urine studies suggesting prerenal azotemia, possible early kidney disease in settings of diabetes or chronic hypertension. ? Renally dose meds, avoid overdiuresis and NEPHROTOXINS ? Daily CMP Pneumonia, CAP versus aspiration Reactive leukocytosis Suspected bibasilar pneumonia on CXR from 04/04. Suspected aspiration given BiPAP use, although currently denies cough. Afebrile, leukocytosis likely reactive 2/2 STEROIDS. Repeat CXR 04/09 showed no pneumonia. Pancultures have all been negative. AZITHROMYCIN and ZOSYN were discontinued. ? Monitor closely Hepatomegaly Hyperbilirubinemia, direct Broad differential including: Gilbert syndrome, ineffective erythropoiesis, or hemolysis. CT showed hepatomegaly. Liver ultrasound showed borderline thickened gallbladder, again hepatomegaly, fatty infiltrate of the liver, no focal liver lesion. LFTs overall WNL. However, total bilirubin alternating between 1.5 and 4.5, and appears chronic. He denies abdominal pain. Low suspicion for cholangitis. Acute hepatitis panel was negative, although he is not immunized. ? Recommended outpatient GI workup for ? Recommended hepatitis B amputation series T2DM Relatively controlled, A1c 6.9 ? INSULIN sliding scale ? Accu-Cheks Electrolyte abnormalities ? Replete as needed Normocytic normochromic anemia (resolved) Hemoglobin stable. ? Daily labs #Health Maintenance Disposition: Telemetry DVT prophylaxis: SCDs GI prophylaxis: Protonix Diet: Cardiac CODE STATUS: Full Case discussed with my attending Dr. Cartagena, and senior resident, Dr. Maria Alejandra Bob MD PGY-1 Attending Provider Attestation/Addendum I have discussed and was present for the essential components of the history, physical examination, diagnosis, and treatment plan with the resident. I agree with the patient's care as documented by the resident and amended herein by me. Ahmet Cartagena DO. Although this document has been carefully reviewed, there may still be some phonetic and other typographical errors. These errors are purely grammatical due to imperfections in the software program and should not be construed in any way to compromise the substance of the patient's medical care during this visit. Patient seen and evaluated this AM. Patient doing well this morning no subjective complaints, urine did not demonstrate any signs of hematuria. Per urology, patient will need cystoscopy, ultrasound and likely prostatectomy, will follow-up with Dr. Walters upon discharge in the outpatient setting. Will continue tamsulosin, finasteride, and alfuzosin for now, will continue aspirin and Eliquis for now, will discharge on Lasix per cardiology recommendations. Appreciate additional specialist recommendations
--- NOTE | 2025-04-17 16:59 | PD.RESPRO ---
Documentation for date of: 04/17/25 Subjective Subjective Interval history: Patient is seen and examined at the bedside. No acute overnight events. Denies any other complaints. Vitals are stable. CBC at baseline. CMP revealed improvement in creatinine. Negative by ~ 10L since admission with diuresis initially TTE was significant for diastolic dysfunction, but unable to grade because of atrial fibrillation, LVEF 60 to 65%. Electrolytes WNL. Recommended to further evaluate urine protein level, as it was 2+. Patient will undergo Lexiscan as an outpatient basis, for preoperative cardiac assessment. Aspirin 81 Mg daily and Eliquis 2.5 Mg twice daily , metoprolol succinate 100 Mg daily and atorvastatin 40 Mg daily at night to maintain LDL level less than 55 in the setting of past medical history of hypertension, diabetes mellitus and stroke. During discharge, patient should be placed on 40 mg Lasix daily and follow-up with ammunition storage superintendent Dr. Toney after 1 week of discharge. Exam Vital Signs Temp Pulse Resp BP Pulse Ox O2 Del Method O2 Flow Rate 97.1 F 71 18 153/87 H 95 Nasal Cannula 3 04/17/25 16:00 04/17/25 16:00 04/17/25 16:00 04/17/25 16:00 04/17/25 16:00 04/17/25 16:00 04/17/25 16:00 FiO2 30 04/17/25 06:49 Narrative Exam General: Awake. HEENT: Normocephalic, atraumatic, mucous membranes moist. Heart: Regular rate and rhythm, no murmurs. Lungs: Clear to auscultation with no wheezing or crackles. Abdomen: Soft, nondistended, nontender, positive bowel sounds. ?No guarding or rebound tenderness. noted reddish discoloration of urine without hematuria. Neurologic: Alert and oriented x3, no gross neurological deficit, and patient able to move all 4 extremities. Extremities: No edema. Skin: No rash or ecchymoses. Objective Labs 04/17/25 09:47 04/17/25 09:47 Labs: Laboratory Results - last 24 hr 04/17/25 09:47 WBC 8.2 RBC 5.15 Hgb 13.9 Hct 45.1 MCV 88 MCH 27.0 MCHC 30.8 L RDW Std Deviation 49.2 H Plt Count 221 Neut % (Auto) 79 Lymph % (Auto) 9 L [place] % (Auto) 7 Eos % (Auto) 4 Baso % (Auto) 1 Neut # (Auto) 6.5 Lymph # (Auto) 0.8 L [place] # (Auto) 0.6 Eos # (Auto) 0.3 Baso # (Auto) 0.1 Immature Gran # (Auto) 0.02 H Absolute Nucleated RBC 0.00 Immature Gran % 0 Nucleated RBC % 0 Sodium 144 Potassium 4.4 D Chloride 104 Carbon Dioxide 35.8 H Anion Gap 4 L BUN 23 Creatinine 1.0 Estim Creat Clear Calc 76.0 eGFR > 60 BUN/Creatinine Ratio 23 H Glucose 146 H Calculated Osmolality 293 Calcium 9.2 Corrected Calcium 9.5 Phosphorus 2.7 Magnesium 1.6 Total Bilirubin 1.4 H AST 28 ALT 32 Alkaline Phosphatase 102 Total Protein 5.8 Albumin 3.6 Globulin 2.2 L Albumin/Globulin Ratio 1.6 ABG Interpretation ABG results: 04/04/25 04/04/25 04/04/25 13:42 17:07 18:33 ABG pH 7.14 L* 7.20 L ABG pCO2 107 H* 111 H* ABG pO2 85 78 L ABG HCO3 36 H 39 H ABG O2 Saturation 94 92 ABG Base Excess 4 H 6 H VBG pH 7.48 VBG pCO2 50 VBG pO2 82 H VBG Base Excess 11 H 04/04/25 04/04/25 04/04/25 19:35 22:40 23:52 ABG pH 7.16 L* 7.59 H D 7.53 H ABG pCO2 113 H* 37 D 45 ABG pO2 53 L* D 194 H D 87 D ABG HCO3 40 H 36 H 37 H ABG O2 Saturation 78 L 101 H 99 H ABG Base Excess 7 H 13 H 13 H VBG pH VBG pCO2 VBG pO2 VBG Base Excess 04/05/25 04/05/25 04/05/25 01:20 04:52 13:02 ABG pH 7.52 H 7.47 H 7.30 L D ABG pCO2 47 50 H 74 H* D ABG pO2 60 L D 60 L 64 L ABG HCO3 38 H 37 H 37 H ABG O2 Saturation 94 93 89 L ABG Base Excess 13 H 11 H 7 H VBG pH VBG pCO2 VBG pO2 VBG Base Excess 04/06/25 04/07/2525 03:55 10:54 04:42 ABG pH 7.36 7.50 H ABG pCO2 70 H 63 H ABG pO2 101 D 57 L* ABG HCO3 39 H 49 H ABG O2 Saturation 98 91 ABG Base Excess 10 H 21 H VBG pH 7.40 VBG pCO2 67 H D VBG pO2 76 H VBG Base Excess 13 H 04/09/25 04/09/25 04/09/25 06:25 13:10 22:47 ABG pH 7.52 H 7.47 H ABG pCO2 56 H 61 H ABG pO2 79 L D 62 L ABG HCO3 46 H 44 H ABG O2 Saturation 97 92 ABG Base Excess 19 H 16 H VBG pH 7.56 VBG pCO2 52 D VBG pO2 43 D VBG Base Excess 21 H 04/10/25 04/10/25 04/10/25 05:22 12:07 17:17 ABG pH 7.43 7.40 ABG pCO2 64 H 68 H ABG pO2 64 L 77 L ABG HCO3 43 H 42 H ABG O2 Saturation 92 95 ABG Base Excess 15 H 14 H VBG pH 7.55 VBG pCO2 45 VBG pO2 76 H D VBG Base Excess 15 H Quality Measures Quality Measures VTE prophylaxis Advance care planning discussed with:: patient and sibling Assessment & Plan Assessment Current Active Medications: Generic Name Dose Route Start Last Admin Trade Name Freq PRN Reason Stop Dose Admin Acetaminophen 650 mg 04/04/25 17:27 Acetaminophen 325 Mg Tablet PO 05/04/25 17:26 Q6H PRN Fever >100 or pain 1-3 Atorvastatin Calcium 40 mg 04/07/25 21:00 04/16/25 21:13 Atorvastatin Calcium 20 Mg Tablet PO 05/07/25 20:59 40 mg HS JOSELUIS Administration Alfuzosin Er 10 Mg 0 ea 04/11/25 13:45 04/17/25 08:06 Tablet PO 05/11/25 13:44 1 tablet QDAY JOSELUIS Administration Dextrose 25 ml 04/04/25 17:38 Dextrose 50%-Water Inj 50 Ml Syringe IV 05/04/25 17:37 Q15MIN PRN BG 50-70 responsive npo pt Dextrose 50 ml 04/04/25 17:38 Dextrose 50%-Water Inj 50 Ml Syringe IV 05/04/25 17:37 Q15MIN PRN BG <50 OR BG <70 & pt unresponsive Finasteride 5 mg 04/14/25 16:15 04/17/25 08:07 Finasteride 5 Mg Tablet PO 05/14/25 16:14 5 mg QDAY JOSELUIS Administration Glucagon 1 mg 04/04/25 17:38 Glucagon Inj 1 Mg Vial IM Q15MIN PRN BG <70, and no IV access Insulin Glargine 5 unit 04/06/25 21:00 04/16/25 21:14 Insulin Glargine (Lantus) 5 Unit/0.05 Ml (Per 5 Units) SC 05/06/25 20:59 5 unit HS JOSELUIS Administration Insulin Human Lispro 0 unit 04/07/25 07:30 04/17/25 16:42 Insulin Lispro (Admelog) 1 Unit/0.01 Ml Unit SC 05/07/25 07:29 1 unit ACHS JOSELUIS Administration Protocol Ipratropium [place] 0.5 mg 04/07/25 07:45 04/17/25 14:04 Ipratropium Rt 0.5 Mg/ 2.5 Ml Nebu INH 05/07/25 07:44 0.5 mg Q8HRRT JOSELUIS Administration Levalbuterol HCl 1.25 mg 04/07/25 07:45 04/17/25 14:04 Levalbuterol Rt 1.25 Mg/0.5 Ml Nebu INH 05/07/25 07:44 1.25 mg Q8HRRT JOSELUIS Administration Losartan Potassium 50 mg 04/17/25 09:00 04/17/25 08:06 Losartan Potassium 25 Mg Tablet PO 05/17/25 08:59 50 mg QDAY JOSELUIS Administration Metoprolol Succinate 100 mg 04/06/25 21:00 04/16/25 21:13 Metoprolol Succinate Xl 25 Mg Tabcr PO 05/06/25 20:59 100 mg HS JOSELUIS Administration Ondansetron HCl 4 mg 04/04/25 17:32 Ondansetron Inj 2 Mg/Ml Inj 2 Ml IVP 05/04/25 17:31 Q6H PRN NAUSEA OR VOMITING Protocol Pantoprazole Sodium 40 mg 04/10/25 09:00 04/17/25 08:06 Pantoprazole 40 Mg Tablet PO 05/10/25 08:59 40 mg QDAY JOSELUIS Administration Protocol Sodium Chloride 3 ml 04/04/25 17:27 Sodium Chloride Rt Zo 0.9% 3 Ml Nebu INH 05/04/25 17:26 PRN PRN SOLN Tamsulosin HCl 0.4 mg 04/18/25 09:00 Tamsulosin Hcl 0.4 Mg Capsule PO 05/18/25 08:59 QDAY JOSELUIS Plan The patient is a 74-year-old male with past medical history significant for hypertension, possible CAD, chronic A-fib, type 2 diabetes mellitus, MOUNIKA and acute CVA in 2019 presented to ED with chief complaint of worsening SOB for the past couple of months is currently being managed for acute on chronic hypoxic respiratory failure. Cardiology consultation was done for further management of possible new onset CHF exacerbation in the setting of longstanding atrial fibrillation. #Acute on chronic hypoxic respiratory failure 2/2 S/P extubation #New onset diastolic CHF exacerbation, in the setting of #Chronic atrial fibrillation #Aspiration pneumonia, resolved #MOUNIKA Patient presented with chief complaint of worsening of SOB for past couple of months, visited PCP for 2 times, was given some medications that did not help at all. The patient has history of longstanding atrial fibrillation diagnosed about 5 years ago, but patient is unaware of the situation. Physical exam is significant for generalized anasarca. Liver enzymes WNL, though suspicious for cirrhosis as there is irregular liver counter, but synthetic and detoxification function of liver is intact, suggestive of more likely acute new onset CHF exacerbation. TSH 1.35 [id number] score of 6 - Diuresed well - Hold diuretics - Metoprolol succinate 100 Mg daily at night for rate control - Maintain potassium and magnesium greater than 4 and greater than 2 all the time - Strict ins and out, fluid restriction of 2000 cc daily - Low-sodium diet - Patient education regarding CHF and atrial fibrillation - CPAP/BiPAP at night, as needed at daytime - Telemetry monitoring - Recommend to keep saturation between 88 to 92%. Pt was having clot on urine, suggestive of obstructive uropathy rather than over diuresis. Creatinine improved to 1.1 Negative by ~ 10L since admission with diuresis initially TTE was significant for diastolic dysfunction, but unable to grade because of atrial fibrillation, LVEF 60 to 65%. Recommended to further evaluate urine protein level, as it was 2+. Dark clots were suspected in the urine on 04/11/25 and was placed on saline bladder irrigation, discontinued on 04/13/2025 Patient will undergo Lexiscan as an outpatient basis, for preoperative cardiac assessment. Aspirin 81 Mg daily and Eliquis 2.5 Mg twice daily , metoprolol succinate 100 Mg daily and atorvastatin 40 Mg daily at night to maintain LDL level less than 55 in the setting of past medical history of hypertension, diabetes mellitus and stroke. During discharge, patient should be placed on 40 mg Lasix daily and follow-up with ammunition storage superintendent Dr. Toney after 1 week of discharge. #Past medical history of acute CVA in 2019 #Hypertension #Hyperlipidemia #Possible CAD LDL 73 Blood pressure soft at this time -Aspirin 81 Mg daily -Lipitor 40 Mg daily at night, to maintain LDL level less than 55 in the setting of hypertension, diabetes mellitus type 2 and past medical history of CVA -Antihypertensive will be adjusted given the patient's heart rate and blood pressure, currently started on metoprolol succinate 100 Mg daily at night #DM type II, A1c 6.9 #Rule out cirrhosis #Proteinuria, to be further evaluated #Hematuria, resolved CT abdomen/pelvis done on 04/13/2025 revealed massive prostatomegaly causing mild bilateral hydronephrosis and early wall thickening in the urinary bladder -Dr. Walters, urologist consulted. # 2/2 #Post obstructive uropathy Improved Rest of the management deferred to primary hospitalist team. Patient will undergo Lexiscan as an outpatient basis, for preoperative cardiac assessment. Aspirin 81 Mg daily and Eliquis 2.5 Mg twice daily , metoprolol succinate 100 Mg daily and atorvastatin 40 Mg daily at night to maintain LDL level less than 55 in the setting of past medical history of hypertension, diabetes mellitus and stroke. During discharge, patient should be placed on 40 mg Lasix daily and follow-up with ammunition storage superintendent Dr. Toney after 1 week of discharge. Thank you for consulting cardiology team. We appreciate the opportunity to participate in this patient's care. Cardiology team will continue to follow-up on this patient care. The patient's management plan was discussed with my attending physician MD Escobar Torres MD, PGY3 Attending Provider Attestation/Addendum I have personally seen and examined the patient separately on the above date of service and discussed the plan of care with the resident. I reviewed the resident Dr. Escobar Francis consultation progress note and agree with the resident findings and plan in the note above and have also edited the documentation to reflect my findings and plan. Luis Toney M.D. Interventional Cardiology
[2025-04-17] MEDS: INSULIN GLARGINE (Lantus) 5 UNIT/0.05 ML (PER 5 UNITS) SC (21:15)
[2025-04-17] MEDS: ATORVASTATIN CALCIUM 20 MG TABLET 40 MG PO (21:16)
[2025-04-17] MEDS: METOPROLOL SUCCINATE XL 25 MG TABCR 100 MG PO (21:16)
[2025-04-17] MEDS: Magnesium Sulfate 4 GM Ivpb 4 GM/50 ML BAG IV (21:25)
[2025-04-17] MEDS: APIXABAN 2.5 MG TABLET PO (22:15)
[2025-04-18] VITALS (11 sets, daily range): BP systolic 132–159; BP diastolic 88–97; PULSE 62–88; RESP 12–23; TEMP 36.1–36.3; O2SAT 94–99; BMI 35.6
[2025-04-18 06:22] LABS: Basophils # (Auto) 0.0 Thou/mm3 (0.0-0.2); Basophils % (Auto) 1 % (0-2.5); Eosinophils # (Auto) 0.3 Thou/mm3 (0.0-0.5); Eosinophils % (Auto) 3 % (0-10); Hematocrit 43.4 % (41.0-53.0); Hemoglobin 13.3 g/dL (13.5-16.0); Immature Granulocytes Auto 0.02 Thou/mm3 (0.00-0.00); Lymphocytes # (Auto) 1.0 Thou/mm3 (1.0-4.8); Lymphocytes % (Auto) 13 % (10-50); Mean Corpuscular HGB Conc 30.6 g/dl (31.0-37.0); Mean Corpuscular Hemoglobin 26.5 pg (25.0-35.0); Mean Corpuscular Volume 87 fL (80-100); Monocytes # (Auto) 0.6 Thou/mm3 (0.0-0.8); Monocytes % (Auto) 7 % (0-12); Neutrophils # (Auto) 5.7 Thou/mm3 (1.8-7.7); Neutrophils % (Auto) 75 % (37-80); Nucleated Red Blood Cell # 0.00 Thou/mm3 (0.00-0.00); Nucleated Red Blood Cell % 0 /100 WBC (0); Platelet Count 204 Thou/mm3 (140-440); RDW Standard Deviation 48.8 fL (35.1-43.9); Red Blood Count 5.01 Miln/mm3 (4.50-5.90); White Blood Count 7.6 Thou/mm3 (3.8-10.6)
[2025-04-18] MEDS: IPRATROPIUM RT 0.5 MG/ 2.5 ML NEBU INH ×2 (06:39→14:07)
[2025-04-18] MEDS: LEVALBUTEROL RT 1.25 MG/0.5 ML NEBU INH ×2 (06:39→14:07)
[2025-04-18 06:48] LABS: Alanine Aminotransferase 27 U/L (10-49); Albumin, Serum 3.3 gm/dL (3.4-4.8); Albumin/Globulin Ratio 1.3 (1.2-2.2); Alkaline Phosphatase 89 U/L (46-116); Anion Gap 7 (7-16); Aspartate Amino Transferase 25 U/L (0-34); BUN/Creatinine Ratio 26 Ratio (12-20); Bilirubin,Total 1.2 mg/dL (0.3-1.2); Blood Urea Nitrogen 23 mg/dL (9-23); Calcium 8.5 mg/dL (8.3-10.6); Calcium (Corrected) 9.1 mg/dL (8.5-10.1); Carbon Dioxide 33.0 mMol/L (20.0-31.0); Chloride 103 mMol/L (98-107); Creatinine (Component) 0.9 mg/dL (0.6-1.3); Estimated Creatinine Clearance 85.0 mL/min (>60); Globulin 2.5 gm/dL (2.3-3.5); Glucose 123 mg/dL (74-106); Magnesium 1.8 mg/dL (1.6-2.6); Osmolality,Calculated 289 (275-295); Phosphorous 2.4 mg/dL (2.4-5.1); Potassium 4.0 mMol/L (3.4-5.1); Sodium 143 mMol/L (136-145); Total Protein 5.8 gm/dL (5.7-8.2); eGFR > 60 See Note
[2025-04-18] MEDS: PANTOPRAZOLE 40 MG TABLET PO (08:35)
[2025-04-18] MEDS: TAMSULOSIN HCL 0.4 MG CAPSULE PO (08:35)
[2025-04-18] MEDS: ASPIRIN EC 81 MG TABEC PO (08:35)
[2025-04-18] MEDS: APIXABAN 2.5 MG TABLET PO (08:35)
[2025-04-18] MEDS: Magnesium Sulfate 4 GM Ivpb 4 GM/50 ML BAG IV (08:35)
[2025-04-18] MEDS: FINASTERIDE 5 MG TABLET PO (08:36)
[2025-04-18] MEDS: LOSARTAN POTASSIUM 25 MG TABLET 50 MG PO (08:36)
[2025-04-18] MEDS: ALFUZOSIN ER 10 MG TABLET PO (08:45)
--- NOTE | 2025-04-18 10:09 | ESPR_ITS ---
Documentation for date of: 04/18/25 Subjective Subjective Interval history: Kade Dalal is a 74-year-old male with PMHx of A-fib on ELIQUIS, HTN, T2DM, MOUNIKA/OHS, chronic respiratory failure, on home 2-3 L oxygen, admitted for volume overload requiring intubation and aggressive diuresis and SOB. Echo showed EF 65% with diastolic dysfunction. He has been on diuresis since. With a total of 9 L fluid removed. Overall oxygen demand improved from baseline, currently on 1 L NC. Continued on BiPAP HS. Patient received 500 cc NS x2 after worsening contraction alkalosis was shown on chem panel and vbg/abg. Cardiology is considering DIAMOX if CO2 remains elevated. Nephrology is consulted in for likely due to prerenal azotemia secondary to over-diuresis. 04/10/2025 Patient was seen and examined. No acute events overnight. Patient is resting in bed and does not have any complaints or concerns. Patient states that he has been using the bipap machine at night even though at home he has not been taking it as much. Patient endorses making urine yesterday, but not any today, and passing stool. Patient denies having history of being unable to make urine in the past. Patient denies fatigue, dizziness, weakness, chest pain, shortness of breath, abdominal pain, dysuria. 04/11/2025 Patient had a rapid called yesterday evening for altered mental status, was found difficult to awaken, eventually became a&o x4 after multiple sternal rubs and returning back to baseline. This morning patient was doing well, vital signs stable, no new concerns/complaints. Patient denies fever, chest pain, shortness of breath. Patient's has been making urine, 1800 ml last 24 hr. Patient's moss bag appeared very dark in color this morning, maybe from traumatic insertion, will continue to monitor; will be given more IV fluids today. 04/12/2025 No acute events overnight. Patient has been making dark urine. Patient was not on fluids overnight, had improved creatinine levels this morning. Patient this morning does not have any new complaints or concerns. Patient denies having any fever, chest pain, shortness of breath. 04/13/2025 No acute events overnight. Patient continues to make dark red urine. Patient's creatinine continues to improve (1.7 today). Patient had bladder irrigation yesterday, discontinuing today. Patient this morning does not have any new complaints or concerns. Patient denies having any fever, chest pain, shortness of breath. 04/14/2025 No acute events overnight. Patient continues to make dark red urine. Patient's creatinine continues to improve (1.4 today). Patient this morning does not have any new complaints or concerns. Patient denies having any fever, chest pain, shortness of breath. 04/15/25 Patient seen and examined at bedside. No new complaints. Denies chest pain, SOB or fever. Greatly improved hematuria in moss with good urine output. Cr continues to improve 1.1 today. 04/16/25 Patient seen and examined at bedside. No new complaints. Denies chest pain, SOB or fever. Good urine output with light red color, improving hematuria. Cr continues to improve 1.0 today. 04/17/25 No acute overnight events. Patient seen and examined at bedside. No new complaints. Denies chest pain, SOB or fever. Continued urine output with light red color, improving hematuria. Cr staying improved, 1.0. 04/18/25 No acute overnight events. Patient seen and examined at bedside. Patient is resting in bed. No new complaints. Denies chest pain, SOB or fever. Continued urine output, improving hematuria. Cr staying improved, 0.9. Exam Vital Signs Temp Pulse Resp BP Pulse Ox O2 Del Method O2 Flow Rate 97.0 F 88 18 159/92 H 97 Room Air 3 04/18/25 08:00 04/18/25 08:36 04/18/25 08:00 04/18/25 08:36 04/18/25 08:00 04/18/25 08:00 04/18/25 06:43 FiO2 30 04/18/25 02:43 Narrative Exam Gen: alert and oriented x3, NAD, vitals reviewed Head/Neck: NCAT, no gross LAD ENT: EOMI grossly, anicteric sclerae, mmm Resp: Lungs CTAB, normal respiratory effort CV: regular rhythm, regular rate; extremities well perfused GI: no distension; no tenderness, normal bowel sounds present Ext: no clubbing, cyanosis. no Lower extremity edema Skin: chronic venous stasis, no new rash or lesions on visual exam Neuro/MSK: moves all extremities Psych: normal mood; appropriate affect Objective Labs 04/18/25 04:38 04/18/25 04:38 Labs: Laboratory Results - last 24 hr 04/17/25 04/18/25 09:47 04:38 WBC 8.2 7.6 RBC 5.15 5.01 Hgb 13.9 13.3 L Hct 45.1 43.4 MCV 88 87 MCH 27.0 26.5 MCHC 30.8 L 30.6 L RDW Std Deviation 49.2 H 48.8 H Plt Count 221 204 Neut % (Auto) 79 75 Lymph % (Auto) 9 L 13 [place] % (Auto) 7 7 Eos % (Auto) 4 3 Baso % (Auto) 1 1 Neut # (Auto) 6.5 5.7 Lymph # (Auto) 0.8 L 1.0 [place] # (Auto) 0.6 0.6 Eos # (Auto) 0.3 0.3 Baso # (Auto) 0.1 0.0 Immature Gran # (Auto) 0.02 H 0.02 H Absolute Nucleated RBC 0.00 0.00 Immature Gran % 0 0 Nucleated RBC % 0 0 Sodium 144 143 Potassium 4.4 D 4.0 Chloride 104 103 Carbon Dioxide 35.8 H 33.0 H Anion Gap 4 L 7 BUN 23 23 Creatinine 1.0 0.9 Estim Creat Clear Calc 76.0 85.0 eGFR > 60 > 60 BUN/Creatinine Ratio 23 H 26 H Glucose 146 H 123 H Calculated Osmolality 293 289 Calcium 9.2 8.5 Corrected Calcium 9.5 9.1 Phosphorus 2.7 2.4 Magnesium 1.6 1.8 Total Bilirubin 1.4 H 1.2 AST 28 25 ALT 32 27 Alkaline Phosphatase 102 89 Total Protein 5.8 5.8 Albumin 3.6 3.3 L Globulin 2.2 L 2.5 Albumin/Globulin Ratio 1.6 1.3 ABG Interpretation ABG results: 04/04/25 04/04/25 04/04/25 13:42 17:07 18:33 ABG pH 7.14 L* 7.20 L ABG pCO2 107 H* 111 H* ABG pO2 85 78 L ABG HCO3 36 H 39 H ABG O2 Saturation 94 92 ABG Base Excess 4 H 6 H VBG pH 7.48 VBG pCO2 50 VBG pO2 82 H VBG Base Excess 11 H 04/04/25 04/04/25 04/04/25 19:35 22:40 23:52 ABG pH 7.16 L* 7.59 H D 7.53 H ABG pCO2 113 H* 37 D 45 ABG pO2 53 L* D 194 H D 87 D ABG HCO3 40 H 36 H 37 H ABG O2 Saturation 78 L 101 H 99 H ABG Base Excess 7 H 13 H 13 H VBG pH VBG pCO2 VBG pO2 VBG Base Excess 04/05/25 04/05/25 04/05/25 01:20 04:52 13:02 ABG pH 7.52 H 7.47 H 7.30 L D ABG pCO2 47 50 H 74 H* D ABG pO2 60 L D 60 L 64 L ABG HCO3 38 H 37 H 37 H ABG O2 Saturation 94 93 89 L ABG Base Excess 13 H 11 H 7 H VBG pH VBG pCO2 VBG pO2 VBG Base Excess 04/06/25 04/07/25 04/09/25 03:55 10:54 04:42 ABG pH 7.36 7.50 H ABG pCO2 70 H 63 H ABG pO2 101 D 57 L* ABG HCO3 39 H 49 H ABG O2 Saturation 98 91 ABG Base Excess 10 H 21 H VBG pH 7.40 VBG pCO2 67 H D VBG pO2 76 H VBG Base Excess 13 H 04/09/25 04/09/25 04/09/25 06:25 13:10 22:47 ABG pH 7.52 H 7.47 H ABG pCO2 56 H 61 H ABG pO2 79 L D 62 L ABG HCO3 46 H 44 H ABG O2 Saturation 97 92 ABG Base Excess 19 H 16 H VBG pH 7.56 VBG pCO2 52 D VBG pO2 43 D VBG Base Excess 21 H 04/10/25 04/10/25 04/10/25 05:22 12:07 17:17 ABG pH 7.43 7.40 ABG pCO2 64 H 68 H ABG pO2 64 L 77 L ABG HCO3 43 H 42 H ABG O2 Saturation 92 95 ABG Base Excess 15 H 14 H VBG pH 7.55 VBG pCO2 45 VBG pO2 76 H D VBG Base Excess 15 H Quality Measures Quality Measures VTE prophylaxis Advance care planning discussed with:: patient Assessment & Plan Assessment Current Active Medications: Generic Name Dose Route Start Last Admin Trade Name Freq PRN Reason Stop Dose Admin Acetaminophen 650 mg 04/04/25 17:27 Acetaminophen 325 Mg Tablet PO 05/04/25 17:26 Q6H PRN Fever >100 or pain 1-3 Apixaban 2.5 mg 04/17/25 22:00 04/18/25 08:35 Apixaban 2.5 Mg Tablet PO 05/17/25 21:59 2.5 mg BID JOSELUIS Administration Aspirin 81 mg 04/18/25 09:00 04/18/25 08:35 Aspirin Ec 81 Mg Tabec PO 05/18/25 08:59 81 mg QDAY JOSELUIS Administration Atorvastatin Calcium 40 mg 04/07/25 21:00 04/17/25 21:16 Atorvastatin Calcium 20 Mg Tablet PO 05/07/25 20:59 40 mg HS JOSELUIS Administration Alfuzosin Er 10 Mg 0 ea 04/11/25 13:45 04/18/25 08:45 Tablet PO 05/11/25 13:44 1 tablet QDAY JOSELUIS Administration Dextrose 25 ml 04/04/25 17:38 Dextrose 50%-Water Inj 50 Ml Syringe IV 05/04/25 17:37 Q15MIN PRN BG 50-70 responsive npo pt Dextrose 50 ml 04/04/25 17:38 Dextrose 50%-Water Inj 50 Ml Syringe IV 05/04/25 17:37 Q15MIN PRN BG <50 OR BG <70 & pt unresponsive Finasteride 5 mg 04/14/25 16:15 04/18/25 08:36 Finasteride 5 Mg Tablet PO 05/14/25 16:14 5 mg QDAY JOSELUIS Administration Glucagon 1 mg 04/04/25 17:38 Glucagon Inj 1 Mg Vial IM Q15MIN PRN BG <70, and no IV access Magnesium Sulfate 4 gm in 50 mls @ 12.5 mls/hr 04/18/25 07:32 04/18/25 08:35 Magnesium Sulfate Ivpb IV 04/18/25 11:31 12.5 mls/hr X1 ONE Administration Insulin Glargine 5 unit 04/06/25 21:00 04/17/25 21:15 Insulin Glargine (Lantus) 5 Unit/0.05 Ml (Per 5 Units) SC 05/06/25 20:59 5 unit HS JOSELUIS Administration Insulin Human Lispro 0 unit 04/07/25 07:30 04/18/25 08:06 Insulin Lispro (Admelog) 1 Unit/0.01 Ml Unit SC 05/07/25 07:29 Not Given ACHS JOSELUIS Protocol Ipratropium [place] 0.5 mg 04/07/25 07:45 04/18/25 06:39 Ipratropium Rt 0.5 Mg/ 2.5 Ml Nebu INH 05/07/25 07:44 0.5 mg Q8HRRT JOSELUIS Administration Levalbuterol HCl 1.25 mg 04/07/25 07:45 04/18/25 06:39 Levalbuterol Rt 1.25 Mg/0.5 Ml Nebu INH 05/07/25 07:44 1.25 mg Q8HRRT JOSELUIS Administration Losartan Potassium 50 mg 04/17/25 09:00 04/18/25 08:36 Losartan Potassium 25 Mg Tablet PO 05/17/25 08:59 50 mg QDAY JOSELUIS Administration Metoprolol Succinate 100 mg 04/06/25 21:00 04/17/25 21:16 Metoprolol Succinate Xl 25 Mg Tabcr PO 05/06/25 20:59 100 mg HS JOSELUIS Administration Ondansetron HCl 4 mg 04/04/25 17:32 Ondansetron Inj 2 Mg/Ml Inj 2 Ml IVP 05/04/25 17:31 Q6H PRN NAUSEA OR VOMITING Protocol Pantoprazole Sodium 40 mg 04/10/25 09:00 04/18/25 08:35 Pantoprazole 40 Mg Tablet PO 05/10/25 08:59 40 mg QDAY JOSELUIS Administration Protocol Sodium Chloride 3 ml 04/04/25 17:27 Sodium Chloride Rt Zo 0.9% 3 Ml Nebu INH 05/04/25 17:26 PRN PRN SOLN Tamsulosin HCl 0.4 mg 04/18/25 09:00 04/18/25 08:35 Tamsulosin Hcl 0.4 Mg Capsule PO 05/18/25 08:59 0.4 mg QDAY JOSELUIS Administration Plan 74-year-old male with PMHx of A-fib on ELIQUIS, HTN, T2DM, MOUNIKA/OHS, chronic respiratory failure, on home 2-3 L oxygen, presented with shortness of breath. Admitted for volume overload requiring intubation and aggressive diuresis. Subsequently extubated successfully, but has worsening hypercapnic respiratory failure. Nephrology consulted for management of . # Acute Kidney Injury, resolving Likely ATN with Cr now improving vs potential obstructive etiology; Patient initially noted to have with current Cr 3.0 (over baseline ~1.0). Suspect pre-renal due to over-diuresis in context of chf exacerbation vs obstructive (CT AP shows: Massive prostatomegaly causing mild bilateral hydronephrosis and early wall thickening in the urinary bladder). Holding fluids Denies dizziness, weakness. Good urine output. Continued improvement regarding hematuria in Moss bag - Urology recommends finasteride and TURP outpatient. - Cr continues to be improved, 0.9 currently - renally dose medications - hold nephrotoxic meds - Will most likely need to discharge to SNF/rehab placement Acute metabolic encephalopathy Acute on chronic hypercapnic respiratory failure Contraction alkalosis with appropriate respiratory compensation CHF exacerbation MOUNIKA, OHS Fluid overload status (resolved) Tachycardia A-fib HTN HLD Pneumonia, CAP versus aspiration Reactive leukocytosis Hepatomegaly Hyperbilirubinemia, direct Normocytic normochromic anemia Hematuria T2DM Hx of CVA. Electrolyte abnormalities Above problems Medically managed through the primary team Thank you for allowing us to take part in the care of Mr. Dalal Plan of care discussed with attending, Dr. Jorgito Srivastava MD PGY-1 Attending Provider Attestation/Addendum Patient seen and examined with resident physician Dr. Srivastava. Note reviewed, agree with findings and recommendations. BUN, creatinine seems to be stable. Renal guy stable for discharge. Patient will need outpatient urology follow-up for his BPH and indwelling Moss catheter.
--- NOTE | 2025-04-18 11:34 | PC.SS ---
JOURNEYMAN PAINTER fielded phone call from patient's sister, Blanca Garnica; informing JOURNEYMAN PAINTER that discharge plan is now for the patient to return home and not transition to SNF. Patient will need trilogy and home health. Preferred home health agency is [facility]. Patient's sister informed JOURNEYMAN PAINTER that [facility] is scheduled to tack picker patient's home concentrator and requesting to have home concentrator remain in place at home due to patient's impending return. JOURNEYMAN PAINTER updated regional planner.
--- NOTE | 2025-04-18 13:28 | ESDS_ITS ---
<Statement entered by Zay Harvey MD - 04/19/25 07:06> I have reviewed the note and agree with the resident's assessment & plan with exceptions as below. I have personally reviewed labs, imaging, home meds/prior records, examined the patient, formulated and discussed management plan with the IM team. Pt examined at bedside today. Spoke with urology, Dr. Walters who recommends patient to go home on finasteride, Flomax and home alfuzosin and to continue with Bustamante catheter. Patient will get cardiac clearance outpatient with cardiac stress test with cardiology. Patient may need surgical intervention, however patient to get cystoscopy and other workup outpatient urology with possible surgical intervention at [facility]. 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 Patient was then discharged with the following instructions listed below. Zay Harvey, PGY-2 Internal Medicine Planned Discharge Date 04/18/25 DS: Providers Provider Date of admission: 04/04/25 17:26 Primary care physician: Bert Echeverria MD Admitting Provider: Adonis Cardoza MD Attending Provider on Admission: Keyonna Langston DO Consults: 04/06/25 16:22 Consult to Cardiology Routine Comment: Consulting Provider: Luis Toney 04/06/25 22:40 Referral Physical Therapy Routine Comment: Physician Instructions: 04/10/25 10:41 Consult to Nephrology Routine Comment: Contraction alkylosis, worsening vs ATN Consulting Provider: Ashley Bull 04/11/25 09:54 Consult to Neurology / Tele-Neurology Routine Comment: TIA?, 90% stenosis posterior right cerebral artery Consulting Provider: Sharath Diamond 04/13/25 14:53 Consult to Urology Routine Comment: Massive prostamegaly, clayton hydronephrosis, hemaruri Consulting Provider: Kiley Walters Attending Provider on DC: Power Cartagena DO Discharging Provider: Power Cartagena DO DS: Diagnosis Problem List Completed Was Problem List Reviewed/Reconciled?: Yes Hospital Course Hospital Course Hospital course: 74-year-old male with past medical history of atrial fibrillation, hypertension, obstructive sleep apnea, type 2 diabetes, asthma, acute CVA (3 years ago) presents to the Emergency Department with complaint of shortness of breath x1 wk. Patient admitted for acute encephalopathy secondary to CO2 narcosis and CHF exacerbation. ED course: Patient came into the ED with a temperature of 98.5, blood pressure of 130/76, respiratory 22, heart rate of 75, saturating 63%. Patient was worked up was found to have a sodium of 147, potassium 4.6, bicarb 37, BUN/creatinine of 29 and 1 respectively, blood sugar of 151, VBG pH show 7.48, GQM572, PO282, T. bili 2.2, AST ALT 19 and and 8 respectively, lipase 36, BNP 477 and troponin negative. Medicine was consulted for further workup and admission. ABG was ordered due to concern for worsening narcosis and pCO2 was 107, pH was 7.14. EKG showed Afib, rate 70~, QTc 423. Patient was then placed on BiPAP and admitted to the floors. ICU course: The patient was admitted to the ICU on 04/04/2025, for acute hypoxic hypercapnic respiratory failure and encephalopathy, necessitating intubation. After initial heavy sedation, he showed improvement and was successfully extubated on 04/06/2025, following a failed extubation attempt the previous day due to bradypnea. His ICU course also involved management of his chronic Afib with rate control, holding of some home medications, and continuation of antibiotics for suspected pneumonia, while steroids were discontinued. He also underwent imaging for his swollen right lower extremity, which showed significant hepatomegaly, and experienced an leading to a diuretic holiday. Telemetry course: Patient was successfully extubated and managed with BiPAP for ongoing hypercapnic respiratory failure. He experienced encephalopathy, likely due to hypercapnia, and a transient ischemic attack (TIA) was considered after imaging revealed significant stenosis in a cerebral artery; however, he had no further episodes and was cleared for outpatient neurology follow-up. Concurrently, he developed gross hematuria with bilateral hydronephrosis due to massive prostate enlargement, leading to a urology consult and the holding of Eliquis, though his hemoglobin remained stable. At time of discharge patient is stable and hematuria has improved significantly. Patient to follow-up with Urology Dr. Walters within 1-2 weeks who will manage prostate and do possible surgical intervention and cystoscopy. Discharge instructions: * Follow-up with PCP within 1-2 weeks of discharge. * Follow up with your plastic parts fabricator, Dr. Toney, within one- two weeks upon D/C. [facility] [address] [place] [address]. Phone:? . Call to make an appointment. You will need to follow up with him for cardiac clearance for possible surgical intervention. * Follow-up with Urology within 1-2 weeks of discharge. You will be discharged with a Bustamante catheter, continue with your home Alfuzosin, and started on two new medicines called Finasteride and Flomax. Take these as prescribed. Your urologist, Dr. Walters will discuss more in detail with your in regards to your prostate and possible surgical intervention and cystoscopy. Call to make an appointment. * Recommended hepatitis B immunization series. * Recommending referral to vascular surgery for 90% stenosis posterior right cerebral artery junction P1 P2 segments seen on MRI. Speak about this with your PCP. * Continue using trilogy BiPAP at night daily, and throughout the day as needed for fatigue or shortness of breath. * Continue taking ATORVASTATIN 40 mg daily (DOSE CHANGED). * Continue taking ASPIRIN 81 mg daily (NEW). * Continue taking FUROSEMIDE 40 mg daily (NEW). * Continue taking METOPROLOL SUCCINATE 100 mg at night daily (DOSE CHANGED). * Continue taking ELIQUIS 2.5 mg twice daily (DOSE CHANGED). * Stop taking all LOSARTAN HYDROCHLOROTHIAZIDE. We have prescribed you a similar medicine called, LOSARTAN. Take as prescribed. * Stop taking POTASSIUM CHLORIDE until you see your doctor. * Continue taking medications as prescribed below. * Return to Emergency Room if symptoms persist, worsen, or new symptoms develop. 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 #Acute metabolic encephalopathy #Acute on chronic hypercapnic respiratory failure #Contraction alkalosis with appropriate respiratory compensation #CHF exacerbation #Central sleep apnea, MOUNIKA, OHS #Fluid overload status #A-fib, rate controlled #HTN #HLD #Prerenal azotemia #Pneumonia, CAP versus aspiration #Reactive leukocytosis #Hepatomegaly #Hyperbilirubinemia, direct #T2DM #Electrolyte abnormalities #Normocytic normochromic anemia Case discussed with my attending Dr. Cartagena, and senior resident, Dr. Candice Bob MD PGY-1 Time Spent with Patient Time attestation: Total time spent providing and/or coordinating discharge services: Time spent: Greater than 30 minutes Quality: Stroke Pt Provided Written Stroke Discharge Instructions: No Exam Vital Signs Temp Pulse Resp BP Pulse Ox O2 Del Method O2 Flow Rate 97.4 F 65 18 132/97 H 94 L Room Air 3 04/18/25 12:00 04/18/25 12:04/18/25 12:04/18/25 12:04/18/25 12:00 04/18/25 12:00 04/18/25 06:43 FiO2 30 04/18/25 02:43 Narrative Exam General: Awake. HEENT: Normocephalic, atraumatic, mucous membranes moist. Heart: Regular rate and rhythm, no murmurs. Lungs: Clear to auscultation with no wheezing or crackles. Abdomen: Soft, nondistended, nontender, positive bowel sounds. ?No guarding or rebound tenderness. noted reddish discoloration of urine without hematuria. Neurologic: Alert and oriented x3, no gross neurological deficit, and patient able to move all 4 extremities. Extremities: No edema. Skin: No rash or ecchymoses. Discharge Plan Plan Patient Disposition: Xfer Skilled Nsg Fac (SNF) Disposition Comment: [facility] Patient condition on transfer: Stable Care Plan Goals: * Follow-up with PCP within 1-2 weeks of discharge. * Follow up with your plastic parts fabricator, Dr. Toney, within one- two weeks upon D/C. Address: [address] [place] [address] [place] [address]. Phone:? . Call to make an appointment. You will need to follow up with him for cardiac clearance for possible surgical intervention. * Follow-up with Urology within 1-2 weeks of discharge. You will be discharged with a Bustamante catheter, continue with your home Alfuzosin, and started on two new medicines called Finasteride and Flomax. Take these as prescribed. Your urologist, Dr. Walters will discuss more in detail with your in regards to your prostate and possible surgical intervention and cystoscopy. Call to make an appointment. * Recommended hepatitis B immunization series. * Recommending referral to vascular surgery for 90% stenosis posterior right cerebral artery junction P1 P2 segments seen on MRI. Speak about this with your PCP. * Continue using trilogy BiPAP at night daily, and throughout the day as needed for fatigue or shortness of breath. * Continue taking ATORVASTATIN 40 mg daily (DOSE CHANGED). * Continue taking ASPIRIN 81 mg daily (NEW). * Continue taking FUROSEMIDE 40 mg daily (NEW). * Continue taking METOPROLOL SUCCINATE 100 mg at night daily (DOSE CHANGED). * Continue taking ELIQUIS 2.5 mg twice daily (DOSE CHANGED). * Stop taking all LOSARTAN HYDROCHLOROTHIAZIDE. We have prescribed you a similar medicine called, LOSARTAN. Take as prescribed. * Stop taking POTASSIUM CHLORIDE until you see your doctor. * Continue taking medications as prescribed below. * Return to Emergency Room if symptoms persist, worsen, or new symptoms develop. * Continue with Bustamante Catheter upon discharge Prescriptions/Referrals Prescriptions/Med Rec: New metoprolol succinate 100 mg tablet extended release 24 hr 100 mg PO HS Qty: 30 0RF Eliquis 2.5 mg tablet 2.5 mg PO BID 30 Days Qty: 60 0RF Rx Instructions: Take one tablet by mouth twice a day furosemide [Lasix] 40 mg tablet 40 mg PO QDAY 30 Days Qty: 30 0RF Rx Instructions: Take one tablet by mouth every day atorvastatin [Lipitor] 40 mg tablet 40 mg PO HS 30 Days Qty: 30 0RF Rx Instructions: Take one tablet by mouth at bedtime losartan 50 mg tablet 50 mg PO QDAY 30 Days Qty: 30 0RF Rx Instructions: Take one tablet by mouth everyday Continued aspirin 81 mg tablet,delayed release (DR/EC) 81 mg PO QDAY metformin 500 mg tablet 500 mg PO DAILY Patient Comments: TAKE 1 TABLET BY MOUTH ONCE DAILY montelukast 10 mg tablet 10 mg PO DAILY Patient Comments: TAKE 1 TABLET BY MOUTH ONCE DAILY albuterol sulfate 90 mcg/actuation HFA aerosol inhaler 1 inh INHALATION PRN PRN (Reason: shortness of breath or wheezing) alfuzosin 10 mg tablet extended release 24 hr 10 mg PO QDAY Patient Comments: TAKE 1 TABLET BY MOUTH ONCE DAILY Held potassium chloride 8 mEq capsule, extended release 8 meq PO QDAY Hold Instructions: Resume on 04/13/25. Hold until you see your doctor, cardiology, or nephrology. Discontinued metoprolol tartrate 100 mg tablet 200 mg PO BID Patient Comments: TAKE 2 TABLETS BY MOUTH TWICE DAILY losartan-hydrochlorothiazide 50-12.5 mg tablet 1 tab PO DAILY Patient Comments: TAKE 1 TABLET BY MOUTH ONCE DAILY Eliquis 2.5 mg tablet 2.5 mg PO DAILY Patient Comments: TAKE 1 TABLET BY MOUTH TWICE DAILY atorvastatin 40 mg tablet 40 mg PO HS Qty: 30 0RF atorvastatin 20 mg tablet 20 mg PO DAILY Patient Comments: TAKE 1 TABLET BY MOUTH ONCE DAILY Referrals: Bert Echeverria MD [Primary Care Provider] - Patient/Caregiver Discharge Instructions Discharge Activity: activity as tolerated Education Materials: Obesity and Its Impact on Health, Heart Failure Dc, MOUNIKA Ch, Understanding Atrial Fibrillation, ED Sleep Apnea, Obstructive Print Language: [place]ese Stand Alone Forms: Samantha Award Info., Patient Portal Info Letter Discharge Order Discharge Orders: Discharge (Routine); Ordered 04/18/25 Ordered By: Zay Harvey Quality Discharge Quality Measures VTE prophylaxis MD Attestestation MD Attestation I have discussed and was present for the essential components of the discharge history, physical examination, diagnosis, and discharge treatment plan with the resident. I agree with the patient's discharge care as documented by the resident and amended herein by me. Ahmet Cartagena, . The patient understood all discharge instructions, all questions were answered satisfactorily. The patient was instructed to return to the Emergency Department is symptoms worsened or persisted. Patient will need close follow-up with urology on outpatient setting, Dr. Walters, will need cystoscopy and ultrasound and most likely prostatectomy done at [facility] however Dr Walters will determine further workup and management going forward. Patient will be discharged with Bustamante catheter in place to SNF. See resident note above for additional details of hospital stay. Urine Although this document has been carefully reviewed, there may still be some phonetic and other typographical errors. These errors are purely grammatical due to imperfections in the software program and should not be construed in any way to compromise the substance of the patient's medical care during this visit.
== END 2025-04-18 17:25 | disposition skilled nursing facility (03) | DRG 208 ==
LOC: SERX 16:12 → SERHOLD 17:52 → S2SX 04-05 05:20 → S2NX 04-07 11:27 → S3SX 04-17 20:42
PROVIDERS: Emergency Medicine; Internal Medicine; Student in an Organized Health Care Education/Training Program; Admitting Provider Student in an Organized Health Care Education/Training Program; Emergency Provider Emergency Medicine; PCP Internal Medicine; Visit Provider Internal Medicine
DX: J96.21 Acute and chronic respiratory failure with hypoxia (principal); J18.9 Pneumonia, unspecified organism; I50.33 Acute on chronic diastolic (congestive) heart failure; G93.41 Metabolic encephalopathy; J69.0 Pneumonitis due to inhalation of food and vomit; N17.0 Acute kidney failure with tubular necrosis; G93.49 Other encephalopathy; I48.20 Chronic atrial fibrillation, unspecified; E87.29 Other acidosis; J44.0 Chronic obstructive pulmonary disease with (acute) lower respiratory infection; E87.4 Mixed disorder of acid-base balance; E87.0 Hyperosmolality and hypernatremia; N13.6 Pyonephrosis; Z79.01 Long term (current) use of anticoagulants; J96.22 Acute and chronic respiratory failure with hypercapnia; E11.9 Type 2 diabetes mellitus without complications; Z79.84 Long term (current) use of oral hypoglycemic drugs; Z99.81 Dependence on supplemental oxygen; Z91.81 History of falling; Z86.73 Personal history of transient ischemic attack (TIA), and cerebral infarction without residual deficits; E78.5 Hyperlipidemia, unspecified; Z68.36 Body mass index [BMI] 36.0-36.9, adult; D64.9 Anemia, unspecified; E83.42 Hypomagnesemia; G47.33 Obstructive sleep apnea (adult) (pediatric); I25.10 Atherosclerotic heart disease of native coronary artery without angina pectoris; E86.0 Dehydration; I11.0 Hypertensive heart disease with heart failure; I66.23 Occlusion and stenosis of bilateral posterior cerebral arteries; N50.89 Other specified disorders of the male genital organs; R31.0 Gross hematuria; N40.0 Benign prostatic hyperplasia without lower urinary tract symptoms; G47.31 Primary central sleep apnea; I35.1 Nonrheumatic aortic (valve) insufficiency; Z79.82 Long term (current) use of aspirin; Z79.899 Other long term (current) drug therapy; Z87.442 Personal history of urinary calculi; Z91.199 Patient's noncompliance with other medical treatment and regimen due to unspecified reason; Z96.652 Presence of left artificial knee joint; J44.89 Other specified chronic obstructive pulmonary disease; K76.0 Fatty (change of) liver, not elsewhere classified
CPT/HCPCS: 36415; 36600; 70450; 70544; 71045; 71275; 74176; 76705; 80048; 80053; 80061; 80307; 81001; 82140; 82248; 82550; 82570; 82803; 83036; 83605; 83690; 83735; 83880; 84100; 84145; 84300; 84443; 84484; 84540; 85025; 85379; 85610; 86331; 86635; 86705; 86706; 86803; 87040; 87081; 87086; 87205; 87340; 87502; 87634; 87811; 93005; 93225; 93306; 93880; 93970; 94002; 94003; 94640; 94660; 96365; 96366; 96375; 96376; 97162; A4649; J0360; J0456; J0696; J1815; J1938; J2251; J2470; J2543; J2704; J2919; J3010; J3373; J3475; J3480; J3490; J7030; J7050; J7999; Q9967; A9270

== ENCOUNTER → 2025-06-05 | Outpatient (BNVA) | payer OTHER, SELFPAY | END | disposition home or self-care (01) | PROVIDERS: PCP Internal Medicine; Referring Provider Internal Medicine; Visit Provider Urology | DX: N40.0 Benign prostatic hyperplasia without lower urinary tract symptoms (principal); N13.30 Unspecified hydronephrosis; N28.1 Cyst of kidney, acquired; E11.9 Type 2 diabetes mellitus without complications; I10 Essential (primary) hypertension; I25.10 Atherosclerotic heart disease of native coronary artery without angina pectoris; I48.20 Chronic atrial fibrillation, unspecified; Z80.42 Family history of malignant neoplasm of prostate | CPT/HCPCS: 99212; G0463 ==

== ENCOUNTER → 2025-06-14 | Outpatient (BNVA) | payer OTHER, SELFPAY | END | disposition home or self-care (01) | PROVIDERS: PCP Internal Medicine; Referring Provider Internal Medicine; Visit Provider Urology | DX: R33.9 Retention of urine, unspecified (principal); J44.9 Chronic obstructive pulmonary disease, unspecified; E66.9 Obesity, unspecified; Z71.3 Dietary counseling and surveillance; Z68.33 Body mass index [BMI] 33.0-33.9, adult; I10 Essential (primary) hypertension; I48.91 Unspecified atrial fibrillation; E11.9 Type 2 diabetes mellitus without complications; Z46.6 Encounter for fitting and adjustment of urinary device | CPT/HCPCS: 96372; 99212; J1580; G0463 ==

== ENCOUNTER → 2025-06-14 | Outpatient (CLI) | payer OTHER, SELFPAY ==
[2025-06-14 11:24] LABS: Basophils # (Auto) 0.0 Thou/mm3 (0.0-0.2); Basophils % (Auto) 1 % (0-2.5); Eosinophils # (Auto) 0.3 Thou/mm3 (0.0-0.5); Eosinophils % (Auto) 3 % (0-10); Hematocrit 39.6 % (41.0-53.0); Hemoglobin 12.6 g/dL (13.5-16.0); Immature Granulocytes Auto 0.02 Thou/mm3 (0.00-0.00); Lymphocytes # (Auto) 1.8 Thou/mm3 (1.0-4.8); Lymphocytes % (Auto) 21 % (10-50); Mean Corpuscular HGB Conc 31.8 g/dl (31.0-37.0); Mean Corpuscular Hemoglobin 27.4 pg (25.0-35.0); Mean Corpuscular Volume 86 fL (80-100); Monocytes # (Auto) 0.5 Thou/mm3 (0.0-0.8); Monocytes % (Auto) 6 % (0-12); Neutrophils # (Auto) 5.8 Thou/mm3 (1.8-7.7); Neutrophils % (Auto) 69 % (37-80); Nucleated Red Blood Cell # 0.00 Thou/mm3 (0.00-0.00); Nucleated Red Blood Cell % 0 /100 WBC (0); Platelet Count 191 Thou/mm3 (140-440); RDW Standard Deviation 55.6 fL (35.1-43.9); Red Blood Count 4.60 Miln/mm3 (4.50-5.90); White Blood Count 8.3 Thou/mm3 (3.8-10.6)
[2025-06-14 11:34] LABS: Glucose Estimated Average 148 mg/dL (80-131); Hemoglobin A1C 6.8 % Hgb (4.8-6.0)
[2025-06-14 11:37] LABS: Prostate Specific Antigen 2.42 ng/mL (0-4.00)
[2025-06-14 11:40] LABS: Alanine Aminotransferase 10 U/L (10-49); Albumin, Serum 4.1 gm/dL (3.4-4.8); Albumin/Globulin Ratio 1.6 (1.2-2.2); Alkaline Phosphatase 89 U/L (46-116); Anion Gap 8 (7-16); Aspartate Amino Transferase 18 U/L (0-34); BUN/Creatinine Ratio 19 Ratio (12-20); Bilirubin,Total 2.1 mg/dL (0.3-1.2); Blood Urea Nitrogen 17 mg/dL (9-23); Calcium 9.3 mg/dL (8.3-10.6); Calcium (Corrected) 9.3 mg/dL (8.5-10.1); Carbon Dioxide 32.1 mMol/L (20.0-31.0); Cardiac Risk Estimate 2.9 RATIO (4.0-6.7); Chloride 104 mMol/L (98-107); Cholesterol 85 mg/dL (132-200); Creatinine (Component) 0.9 mg/dL (0.6-1.3); Globulin 2.6 gm/dL (2.3-3.5); Glucose 133 mg/dL (74-106); HDL Cholesterol 29 mg/dL (40-60); LDL Cholesterol,Calculated 40 mg/dL (0-130); Osmolality,Calculated 290 (275-295); Potassium 4.3 mMol/L (3.4-5.1); Sodium 144 mMol/L (136-145); Thyroid Stimulating Hormone 2.38 uIU/mL (0.55-4.78); Total Protein 6.7 gm/dL (5.7-8.2); Triglycerides 78 mg/dL (30-150); Uric Acid 7.7 mg/dL (3.7-9.2); eGFR > 60 See Note
[2025-06-14 11:43] LABS: Vitamin B12 459 pg/mL (211-911); Vitamin D 25 Hydroxy Total 41.6 ng/mL (7.3-40.2)
[2025-06-14 13:05] LABS: Collection Type, Urine Clean Catch
[2025-06-14 13:37] LABS: Bilirubin,Urine Negative (Negative); Blood,Urine 2+ (Negative); Color,Urine Yellow (Lt Yel-Yel); Glucose, Urine Negative (Negative); Ketones,Urine Negative (Negative); Leukocyte Esterase,Urine Positive (Negative); Nitrite,Urine Negative (Negative); PH,Urine 6.0 (5.0-7.0); Protein,Urine 1+ (Neg - Trace); RBC,Urine 22 /hpf (0-3); Specific Gravity,Urine 1.011 (1.001-1.035); Squamous Epithelial Cell,Urine < 1 /hpf (0-5); Urobilinogen,Urine Negative mg/dL (0.0-1.0); WBC,Urine 572 /hpf (0-5)
[2025-06-14 13:39] LABS: Creatinine MALB Rnd Ur 52 mg/dL (30-125); Microalbumin Creat Ratio 627 mg/gCrea (<30); Microalbumin, Random Urine 326 mg/L (0-300)
[2025-06-14 13:51] LABS: Clarity,Urine Hazy (Clear/Hazy)
== END | disposition home or self-care (01) ==
LOC: COPL 10:03
PROVIDERS: PCP Internal Medicine; Referring Provider Internal Medicine; Visit Provider Internal Medicine
DX: E11.9 Type 2 diabetes mellitus without complications (principal); I10 Essential (primary) hypertension; E78.5 Hyperlipidemia, unspecified
CPT/HCPCS: 36415; 80053; 80061; 81001; 82043; 82306; 82570; 82607; 83036; 84153; 84443; 84550; 85025

== ENCOUNTER 2025-06-15 05:45 | Emergency (ER) | payer OTHER, SELFPAY ==
[2025-06-15 05:46] VITALS: BMI 33.5
[2025-06-15 06:02] VITALS: BP 183/87; PULSE 82; RESP 18; TEMP 36.8; O2SAT 95
[2025-06-15] MEDS: ONDANSETRON INJ 2 MG/ML INJ 2 ML 4 MG IM (06:33)
[2025-06-15] MEDS: MORPHINE SULF INJ 4 MG/ML VIAL IM (06:33)
--- NOTE | 2025-06-15 06:40 | PD.EDABDPN ---
ED Abdominal Pain RME/HPI General Chief Complaint: Abdominal Pain Stated complaint: UNABLE TO VOID Time seen by provider: 06/15/25 06:18 Arrival date/time: 06/15/25 05:45 Source: patient and family Mode of arrival: ambulatory Limitations: no limitations RME / HPI RME / HPI narrative: Patient is a 75-year-old male who had his Moss removed yesterday at his urologist office after having it in place for a few months. The patient suffers from BPH and has been on finasteride and Flomax. Patient's states that for most of yesterday the patient urinated well but then she tried to straight cath the patient at home and was unsuccessful multiple times. This morning he is having suprapubic pain. There is no fever, chills, nausea or vomiting. MD complaint: other (Suprapubic pain) Onset (ago): hour(s) Consistency: constant Location: suprapubic Severity: severe Severity scale (1-10): 10 Quality: fullness Radiation: none Migration to: no migration Relieving factors: nothing Exacerbating factors: movement Associated symptoms: denies other symptoms Related Data Home Medications ?Medication ?Instructions ?Recorded ?Confirmed metformin 500 mg tablet 500 mg PO DAILY 03/09/23 06/15/25 aspirin 81 mg tablet,delayed 81 mg PO QDAY 08/17/23 06/15/25 release potassium chloride 8 mEq 8 meq PO QDAY 08/17/23 06/15/25 capsule,extended release Held on 04/13/25. Instructions: Resume on 04/13/25. Hold until you see your doctor, cardiology, or nephrology. albuterol sulfate 90 mcg/actuation 1 inh inhalation PRN PRN shortness 04/05/25 06/15/25 aerosol inhaler of breath or wheezing montelukast 10 mg tablet 10 mg PO DAILY 04/05/25 06/15/25 apixaban 2.5 mg tablet (Eliquis) 2.5 mg PO BID 06/05/25 06/15/25 finasteride 5 mg tablet 5 mg PO QDAY 06/05/25 06/15/25 furosemide 40 mg tablet 40 mg PO QDAY 06/05/25 06/15/25 tamsulosin 0.4 mg capsule 0.8 mg PO QHS 06/05/25 06/15/25 Previous Rx's ?Medication ?Instructions ?Recorded metoprolol succinate 100 mg 100 mg PO HS #30 tabs 04/13/25 tablet,extended release 24 hr Allergies Allergy/AdvReac Type Severity Reaction Status Date / Time No Known Allergies Allergy Verified 06/15/25 12:09 Review of Systems Review of Systems Systems Reviewed: All systems reviewed, normal except as documented Past Medical History Past Medical History CARDIAC: Positive Atrial Fibrillation and Hypertension; Negative Cardiac Disorders or Congestive Heart Failure RESPIRATORY: Negative Chronic Obstructive Pulmonary Disease (COPD) or Asthma GENITOURINARY: Negative Renal Disease ENT: Negative Glaucoma ENDOCRINE: Positive Diabetes Mellitus Type 2; Negative Diabetes Mellitus Type 1 HEMATOLOGIC: Negative Sickle Cell Disease Social History SMOKING STATUS: Never smoker SUBSTANCE USE: does not use ED Exam General Limitations: Present no limitations General appearance: Present alert, obese and other (in mild distress) Head Head exam: Present atraumatic Eye Eye exam: Present normal appearance, PERRL and EOMI ENT ENT exam: Present normal exam, normal oropharynx and mucous membranes moist Neck Neck exam: Present normal inspection, full ROM and trachea midline Chest Chest inspection: Present normal inspection and symmetric chest wall rise Respiratory Respiratory exam: Present normal lung sounds bilaterally Cardiovascular Cardiovascular exam: Present regular rate, normal rhythm and normal heart sounds Abdominal Exam Abdominal exam: Present soft and normal bowel sounds Expanded Exam exam: Present other (Uncircumcised male testes bilaterally descended. No testicular tenderness.) Extremities Exam Extremities exam: Present normal inspection and full ROM Back Exam Back exam: Present normal inspection and full ROM Neurological Exam Neurological exam: Present alert, oriented X3 and CN II-XII intact Psychiatric Psychiatric exam: Present normal affect and anxious Skin Skin exam: Present warm, dry, intact and normal color Course Course Course Narrative: Discussed with the patient plan is to replace the Moss catheter and convert to leg bag. The patient will need to leave this in place because of his urinary retention. He will follow-up with his urologist Quality Measures none Orders Category Date Time Status Moss [Urinary Catheter] QS Care 06/15/25 06:28 Completed Moss to [place] Routine Care 06/15/25 06:26 Ordered HYDROcodone*/APAP 5/325 [[place] 5/325] Med 06/15/25 09:15 Discontinued 1 tab PO X1 ONE Morphine* Inj Med 06/15/25 06:25 Discontinued 4 mg IM X1 ONE Ondansetron Inj [Zofran Inj] Med 06/15/25 06:25 Discontinued 4 mg IM X1 ONE Vital Signs Vital signs: Vital Signs Temperature 98.3 F 06/15/25 06:02 Pulse Rate 82 06/15/25 06:02 Respiratory Rate 18 06/15/25 06:02 Blood Pressure 183/87 H 06/15/25 06:02 Pulse Oximetry (%) 95 06/15/25 06:02 Oxygen Delivery Method Room Air 06/15/25 06:02 Pulse ox is 95% on room air which is adequate. Abdominal Pain MDM Patient data [facility] Clinical information provided by:: patient and family Social determinants that could affect healthcare access:: none Patient has the following chronic illnesses:: Atrial fibrillation, hypertension, diabetes, recent dx of prostatomegaly post moss catheter placement How is presenting disease/condition affected by chronic disease/condition?: caused by Evaluation data The following diagnostics were reviewed and interpreted by me:: other (specify) (No diagnostics ordered ) Lab and/or radiology exams considered but not ordered:: n/a Interpretation Summary: N/A Medications / Prescriptions Medications or Prescriptions considered but not ordered:: DILAUDID Medication administrations:: Medication Administration History Discontinued Medications Hydrocodone Bitart/Acetaminophen (Hydrocodone/Apap 5/325 Tablet) 1 tab PO X1 ONE Stop: 06/15/25 09:16 Last Admin: 06/15/25 09:22 Dose: 1 tab Documented By: ROBERTO Morphine Sulfate (Morphine Sulf Inj 4 Mg/Ml Vial) 4 mg IM X1 ONE Stop: 06/15/25 06:26 Last Admin: 06/15/25 06:33 Dose: 4 mg Documented By: CB Ondansetron HCl (Ondansetron Inj 2 Mg/Ml Inj 2 Ml) 4 mg IM X1 ONE; Protocol Stop: 06/15/25 06:26 Last Admin: 06/15/25 06:33 Dose: 4 mg Documented By: HERIBERTO Comments: ABOVE Consultations Consultation(s) initiated? (list below): No Diagnosis Differential diagnosis abdominal pain: abdominal pain and other (Urinary retention enlarged prostate) Most likely diagnosis given after review of the tests above:: Urinary retention, BPH Admission Indicated Admission indicated?: not indicated Admission Request Was there a request for admission?: No Disposition Plan Disposition Plan: Discharge Discharge Attestation Discharge Attestation: The patient and all family members were given an opportunity to ask questions and understood the discharge instructions. Discharge instructions specifically effects, indications for sooner follow up or return to the emergency department, and the expected course of current diagnosis. Patient condition: Stable Discharge Plan Plan Patient Disposition: HOME (Self Care) Patient condition on transfer: Stable Prescriptions/Referrals Prescriptions/Med Rec: No Action potassium chloride 8 mEq capsule, extended release 8 meq PO QDAY aspirin 81 mg tablet,delayed release (DR/EC) 81 mg PO QDAY furosemide 40 mg tablet 40 mg PO QDAY finasteride 5 mg tablet 5 mg PO QDAY Eliquis 2.5 mg tablet 2.5 mg PO BID tamsulosin 0.4 mg capsule 0.8 mg PO QHS metformin 500 mg tablet 500 mg PO DAILY Patient Comments: TAKE 1 TABLET BY MOUTH ONCE DAILY montelukast 10 mg tablet 10 mg PO DAILY Patient Comments: TAKE 1 TABLET BY MOUTH ONCE DAILY albuterol sulfate 90 mcg/actuation HFA aerosol inhaler 1 inh INHALATION PRN PRN (Reason: shortness of breath or wheezing) metoprolol succinate 100 mg tablet extended release 24 hr 100 mg PO HS Qty: 30 0RF Problem List Clinical Impression: Benign prostatic hyperplasia with urinary retention, Abdominal pain Patient/Caregiver Discharge Instructions Discharge Activity: activity as tolerated Education Materials: Abdominal Pain, Benign Prostatic Hyperplasia, ED Urinary Retention, Male Additional Instructions: Please go to Dr. Walters's office immediately. He will see you now. Print Language: German Stand Alone Forms: Samantha Award Info., Patient Portal Info Letter
[2025-06-15 07:30] VITALS: BP 149/89; PULSE 88; RESP 18; O2SAT 95
[2025-06-15] MEDS: HYDROcodone/APAP 5/325 TABLET 1 TAB PO (09:22)
--- NOTE | 2025-06-15 09:32 | PC.NURSE ---
MD Arora spoke with family and patient and let them know dr Schmidt would be waiting for them and to go directly over there. I spoke with the family and patient and they stated they would head straight over there and I encouraged them to return for any worsening symptoms
== END 2025-06-15 09:36 | disposition home or self-care (01) ==
LOC: SERX 07:48
PROVIDERS: Emergency Provider Family Medicine; PCP Internal Medicine
DX: N40.1 Benign prostatic hyperplasia with lower urinary tract symptoms (principal); R33.8 Other retention of urine; R10.9 Unspecified abdominal pain
CPT/HCPCS: 51702; 96372; 99284; A4314; J2270; J2405; A9270

== ENCOUNTER → 2025-06-15 | Outpatient (BNVA) | payer OTHER, SELFPAY | END | disposition home or self-care (01) | PROVIDERS: PCP Internal Medicine; Referring Provider Internal Medicine; Visit Provider Urology | DX: R33.9 Retention of urine, unspecified (principal); I10 Essential (primary) hypertension; I48.91 Unspecified atrial fibrillation; E11.9 Type 2 diabetes mellitus without complications | CPT/HCPCS: 96372; 99213; J1580; A9270; G0463 ==

== ENCOUNTER 2025-06-20 15:21 | Emergency (ER) | payer OTHER, SELFPAY ==
[2025-06-20 15:40] VITALS: BP 174/78; PULSE 83; RESP 20; TEMP 36.9; O2SAT 97
--- NOTE | 2025-06-20 16:29 | PD.EDADULT ---
ED General RME/HPI General Chief complaint: General Adult/Misc Complain Stated complaint: NEEDS COREA CATHETER FLUSHED Time Seen by Provider: 06/20/25 15:27 Arrival date/time: 06/20/25 15:21 71-year-old male with indwelling Corea catheter reports with complaints of clogged catheter. Patient states that he has had some blood clots since having the catheter placed approximately 2 days ago. Patient reports having the catheter flushed which resolved the clots in the past so he is here today to have it flushed once again. He denies any nausea vomiting fever chills abdominal pain or dysuria. Patient has not take any medications for symptoms Limitations: no limitations Related Data Home Medications ?Medication ?Instructions ?Recorded ?Confirmed metformin 500 mg tablet 500 mg PO DAILY 03/09/23 06/15/25 aspirin 81 mg tablet,delayed 81 mg PO QDAY 08/17/23 06/15/25 release potassium chloride 8 mEq 8 meq PO QDAY 08/17/23 06/15/25 capsule,extended release Held on 04/13/25. Instructions: Resume on 04/13/25. Hold until you see your doctor, cardiology, or nephrology. albuterol sulfate 90 mcg/actuation 1 inh inhalation PRN PRN shortness 04/05/25 06/15/25 aerosol inhaler of breath or wheezing montelukast 10 mg tablet 10 mg PO DAILY 04/05/25 06/15/25 apixaban 2.5 mg tablet (Eliquis) 2.5 mg PO BID 06/05/25 06/15/25 finasteride 5 mg tablet 5 mg PO QDAY 06/05/25 06/15/25 furosemide 40 mg tablet 40 mg PO QDAY 06/05/25 06/15/25 tamsulosin 0.4 mg capsule 0.8 mg PO QHS 06/05/25 06/15/25 Previous Rx's ?Medication ?Instructions ?Recorded metoprolol succinate 100 mg 100 mg PO HS #30 tabs 04/13/25 tablet,extended release 24 hr Allergies Allergy/AdvReac Type Severity Reaction Status Date / Time No Known Allergies Allergy Verified 06/20/25 15:23 Review of Systems Constitutional Constitutional: Denies chills and Denies fever(s) Cardiovascular Cardiovascular: Denies chest pain and Denies dyspnea Respiratory Respiratory: Denies cough and Denies dyspnea Gastrointestinal Gastrointestinal: Denies nausea and Denies vomiting Genitourinary Genitourinary: Reports difficulty urinating, Reports hematuria, Denies testicular pain and Reports other (Indwelling Corea catheter) Musculoskeletal Musculoskeletal: Denies myalgias and Denies stiffness Integumentary/Breasts Skin/Breast: Denies unusual bruising and Denies wounds Past Medical History Past Medical History CARDIAC: Positive Atrial Fibrillation and Hypertension; Negative Cardiac Disorders or Congestive Heart Failure RESPIRATORY: Negative Chronic Obstructive Pulmonary Disease (COPD) or Asthma GENITOURINARY: Negative Renal Disease ENT: Negative Glaucoma ENDOCRINE: Positive Diabetes Mellitus Type 2; Negative Diabetes Mellitus Type 1 HEMATOLOGIC: Negative Sickle Cell Disease Social History SMOKING STATUS: Never smoker SUBSTANCE USE: does not use ED Exam General Limitations: Present no limitations General appearance: Present alert and in no apparent distress Chest Chest inspection: Present normal inspection and symmetric chest wall rise Respiratory Respiratory exam: Present normal lung sounds bilaterally Cardiovascular Cardiovascular exam: Present regular rate, normal rhythm and normal heart sounds Abdominal Exam Abdominal exam: Present soft and normal bowel sounds exam: Present other (Indwelling Corea catheter with bleeding noted but catheter is patent) Extremities Exam Extremities exam: Present normal inspection and full ROM Back Exam Back exam: Present normal inspection and full ROM Neurological Exam Neurological exam: Present alert, oriented X3 and CN II-XII intact Psychiatric Psychiatric exam: Present normal affect and normal mood Skin Skin exam: Present warm, dry, intact and normal color Course Course Course Narrative: 71-year-old male with indwelling Corea catheter returns for catheter flush as it is clogged. Catheter was flushed with 120 cc of normal saline with 120 cc of normal saline upon return catheter is patent patient urinating through catheter well with no other issues or evidence of infection. Patient is stable nontoxic-appearing with stable vital signs he will be discharged with a follow-up with urology Quality Measures none Vital Signs Vital signs: Vital Signs Temperature 98.4 F 06/20/25 15:40 Pulse Rate 83 06/20/25 15:40 Respiratory Rate 20 06/20/25 15:40 Blood Pressure 174/78 H 06/20/25 15:40 Pulse Oximetry (%) 97 06/20/25 15:40 Oxygen Delivery Method Room Air 06/20/25 15:40 Discharge Plan Plan Patient Disposition: HOME (Self Care) Prescriptions/Referrals Prescriptions/Med Rec: No Action potassium chloride 8 mEq capsule, extended release 8 meq PO QDAY aspirin 81 mg tablet,delayed release (DR/EC) 81 mg PO QDAY furosemide 40 mg tablet 40 mg PO QDAY finasteride 5 mg tablet 5 mg PO QDAY Eliquis 2.5 mg tablet 2.5 mg PO BID tamsulosin 0.4 mg capsule 0.8 mg PO QHS metformin 500 mg tablet 500 mg PO DAILY Patient Comments: TAKE 1 TABLET BY MOUTH ONCE DAILY montelukast 10 mg tablet 10 mg PO DAILY Patient Comments: TAKE 1 TABLET BY MOUTH ONCE DAILY albuterol sulfate 90 mcg/actuation HFA aerosol inhaler 1 inh INHALATION PRN PRN (Reason: shortness of breath or wheezing) metoprolol succinate 100 mg tablet extended release 24 hr 100 mg PO HS Qty: 30 0RF Referrals: Ashley Bull MD [Primary Care Provider, Nephrology] - In 1 week Problem List Clinical Impression: Complication of Corea catheter Patient/Caregiver Discharge Instructions Discharge Activity: activity as tolerated Additional Instructions: Keep the area clean and dry follow-up with your urologist as planned return to the emergency department if symptoms return or worsen Print Language: [place] Stand Alone Forms: Samantha Award Info., Patient Portal Info Letter
== END 2025-06-20 16:52 | disposition home or self-care (01) ==
PROVIDERS: Emergency Provider Emergency Medicine; PCP Internal Medicine
DX: T85.9XXA Unspecified complication of internal prosthetic device, implant and graft, initial encounter (principal); Y84.6 Urinary catheterization as the cause of abnormal reaction of the patient, or of later complication, without mention of misadventure at the time of the procedure
CPT/HCPCS: 99281

== ENCOUNTER 2025-06-22 09:26 | Emergency (ER) | payer OTHER, SELFPAY ==
[2025-06-22 09:40] VITALS: BMI 33.0
[2025-06-22 09:41] VITALS: BP 134/69; PULSE 82; RESP 18; TEMP 36.8; O2SAT 96
--- NOTE | 2025-06-22 09:47 | PD.EDRME ---
Rapid Medical Screening Exam RME Arrival date/time: 06/22/25 09:26 75-year-old male with a history of COPD, congestive heart failure, atrial fibrillation, BPH with urinary retention presents to the emergency room with a chief complaint of blood clots coming out through the side of his urinary catheter. Patient went to his urologist but was not seen because he does not have a follow-up appointment till 06/29/2025 I have greeted and performed a focused initial assessment of this patient. A comprehensive ED assessment and evaluation of the patient, analysis of all test results, and completion of the medical decision making process will be conducted by additional ED providers. Chief Complaint: Urogenital-Male Time Seen by Provider: 06/22/25 09:35 Vital signs: Vital Signs Temperature 98.2 F 06/22/25 09:41 Pulse Rate 82 06/22/25 09:41 Respiratory Rate 18 06/22/25 09:41 Blood Pressure 134/69 H 06/22/25 09:41 Pulse Oximetry (%) 96 06/22/25 09:41 Oxygen Delivery Method Room Air 06/22/25 09:41 Vital signs reviewed by provider: Yes
--- NOTE | 2025-06-22 16:25 | PD.EDMALE ---
ED Male Genitalurinary RME/HPI General Chief complaint: Urogenital-Male Stated complaint: Blood clots coming around catheter Time Seen by Provider: 06/22/25 09:35 Arrival date/time: 06/22/25 09:26 RME / HPI RME / HPI Narrative: 75-year-old male with a history of COPD, congestive heart failure, atrial fibrillation, BPH with urinary retention presents to the emergency room with a chief complaint of blood clots coming out through the side of his urinary catheter. Patient went to his urologist but was not seen because he does not have a follow-up appointment till 06/29/2025 symptoms started last night as blood leaking outside the Bustamante catheter, around the Bustamante catheter area, with some blood clots. Patient is not complaining of suprapubic discomfort. Patient is taking aspirin and Eliquis. Related Data Home Medications ?Medication ?Instructions ?Recorded ?Confirmed metformin 500 mg tablet 500 mg PO DAILY 03/09/23 06/15/25 aspirin 81 mg tablet,delayed 81 mg PO QDAY 08/17/23 06/15/25 release potassium chloride 8 mEq 8 meq PO QDAY 08/17/23 06/15/25 capsule,extended release Held on 04/13/25. Instructions: Resume on 04/13/25. Hold until you see your doctor, cardiology, or nephrology. albuterol sulfate 90 mcg/actuation 1 inh inhalation PRN PRN shortness 04/05/25 06/15/25 aerosol inhaler of breath or wheezing montelukast 10 mg tablet 10 mg PO DAILY 04/05/25 06/15/25 apixaban 2.5 mg tablet (Eliquis) 2.5 mg PO BID 06/05/25 06/15/25 finasteride 5 mg tablet 5 mg PO QDAY 06/05/25 06/15/25 furosemide 40 mg tablet 40 mg PO QDAY 06/05/25 06/15/25 tamsulosin 0.4 mg capsule 0.8 mg PO QHS 06/05/25 06/15/25 Previous Rx's ?Medication ?Instructions ?Recorded metoprolol succinate 100 mg 100 mg PO HS #30 tabs 04/13/25 tablet,extended release 24 hr Allergies Allergy/AdvReac Type Severity Reaction Status Date / Time No Known Allergies Allergy Verified 06/22/25 09:32 Review of Systems Review of Systems Narrative Review of Systems: Review of system reviewed and within normal limits except mentioned in HPI ED Exam Narrative Physical exam: VITAL SIGNS: Reviewed. GENERAL APPEARANCE: Alert and interactive, follows commands, no acute distress, HEAD AND FACE: Non-traumatic. ENT: PERRL, pink conjunctivitis, eyelid no trauma, Mucous membrane moist. NECK: Supple, nontender, no nuchal rigidity. CHEST: No tenderness, no crepitus, no paradoxical movement, no retractions. LUNGS: Clear, well ventilated, symmetric, no rales, no wheezing, no ronchi, no stridor, good breath sounds bilaterally. HEART: Regular rate, regular rhythm, no murmur, no gallops. ABDOMEN: Soft, positive bowel sounds, nondistended, no guarding, nontender, no rebound, no masses, RECTAL: Deferred. GENITAL: Bustamante catheter intact however blood noted on the meatus around the catheter. With suprapubic pubic tenderness no distention noted NEUROLOGICAL: Gross motor function intact sensory function intact, Appropriate for age. MUSCULOSKELETAL: low back nontender, full range of motion. EXTREMITIES: Nontender, full range of motion. SKIN: Color pink, dry, no rash, no lacerations, no abrasions, no contusions. LYMPHATICS: Deferred. Course Quality Measures none Orders Category Date Time Status Continuous Bladder Irrigation QSHIFT Care 06/22/25 10:20 Active Bustamante [Urinary Catheter] QS Care 06/22/25 10:20 Active CBC [CBC] Stat Lab 06/22/25 16:39 Completed CMP [Comprehensive Metabolic Panel] Stat Lab 06/22/25 16:39 Completed PT [Prothrombin Time with INR] Stat Lab 06/22/25 16:39 Completed PTT [Partial Thromboplastin Time] Stat Lab 06/22/25 16:39 Completed UA, C/S IF [Urinalysis, C/S if Indicated] Stat Lab 06/22/25 21:00 Completed Vital Signs Vital signs: Vital Signs Temperature 98.2 F 06/22/25 09:41 Pulse Rate 82 06/22/25 09:41 Respiratory Rate 18 06/22/25 09:41 Blood Pressure 134/69 H 06/22/25 09:41 Pulse Oximetry (%) 96 06/22/25 09:41 Oxygen Delivery Method Room Air 06/22/25 09:41 Urogenital - Male MDM Narrative MDM Narrative:: 75-year-old male with a history of COPD, congestive heart failure, atrial fibrillation, BPH with urinary retention presents to the emergency room with a chief complaint of blood clots coming out through the side of his urinary catheter. Patient went to his urologist but was not seen because he does not have a follow-up appointment till 06/29/2025 symptoms started last night as blood leaking outside the Bustamante catheter, around the Bustamante catheter area, with some blood clots. Patient is not complaining of suprapubic discomfort. Patient is taking aspirin and Eliquis. Patient Bustamante catheter was manually irrigated at least total of 1.5 L in 3 occasions, the last irrigation showed pinkish urine with no blood clots. Was able to urinate via Bustamante catheter prior to discharge. Patient is not having any complaints. Patient's laboratory workup is significant for elevated LFTs and elevated total bili also 3.1 been having elevated LFTs in the past and total bili also. Creatinine 1.4. I reviewed patient's ultrasound of the liver that was done 2 months ago and showed significant hepatocellular disease. I suspect patient is having liver cirrhosis. Patient was advised to follow-up closely with PCP and for referral to liver specialist. Currently patient not having any abdominal pain. Patient was advised to closely follow-up with urologist also. Return to emergency room for urinary retention. Patient data External records reviewed:: None Clinical information provided by:: patient Social determinants that could affect healthcare access:: none Patient has the following chronic illnesses:: Chronic A-fib, COPD, congestive heart failure BPH How is presenting disease/condition affected by chronic disease/condition?: exacerbated by Evaluation data The following diagnostics were reviewed and interpreted by me:: lab results Lab and/or radiology exams considered but not ordered:: None Interpretation Summary: See results and MDM Medications / Prescriptions Medications or Prescriptions considered but not ordered:: None Medication administrations:: None Consultations Consultation(s) initiated? (list below): No Diagnosis Urogenital Male Differential Diagnosis: urinary tract infection, acute retention of urine and other (Hematuria, chronic elevated total bili, transaminitis) Most likely diagnosis given after review of the tests above:: Acute urinary retention secondary to hematuria, indwelling Bustamante catheter, elevated total bili, and elevated LFTs Admission Indicated Admission indicated?: not indicated Admission Request Was there a request for admission?: No Disposition Plan Disposition Plan: Discharge Discharge Attestation Discharge Attestation: The patient and all family members were given an opportunity to ask questions and understood the discharge instructions. Discharge instructions specifically effects, indications for sooner follow up or return to the emergency department, and the expected course of current diagnosis. Patient condition: Stable Discharge Plan Plan Patient Disposition: HOME (Self Care) Discharge Disposition comment: Stable Prescriptions/Referrals Prescriptions/Med Rec: No Action potassium chloride 8 mEq capsule, extended release 8 meq PO QDAY aspirin 81 mg tablet,delayed release (DR/EC) 81 mg PO QDAY furosemide 40 mg tablet 40 mg PO QDAY finasteride 5 mg tablet 5 mg PO QDAY Eliquis 2.5 mg tablet 2.5 mg PO BID tamsulosin 0.4 mg capsule 0.8 mg PO QHS metformin 500 mg tablet 500 mg PO DAILY Patient Comments: TAKE 1 TABLET BY MOUTH ONCE DAILY montelukast 10 mg tablet 10 mg PO DAILY Patient Comments: TAKE 1 TABLET BY MOUTH ONCE DAILY albuterol sulfate 90 mcg/actuation HFA aerosol inhaler 1 inh INHALATION PRN PRN (Reason: shortness of breath or wheezing) metoprolol succinate 100 mg tablet extended release 24 hr 100 mg PO HS Qty: 30 0RF Referrals: Ashley Bull MD [Primary Care Provider, Nephrology] - In 1 week Problem List Clinical Impression: Acute on chronic urinary retention, Hematuria, Chronic indwelling Bustamante catheter, Serum total bilirubin elevated, Elevated LFTs Patient/Caregiver Discharge Instructions Discharge Activity: activity as tolerated Education Materials: ED Bustamante Catheter, Care Additional Instructions: Thank you for the opportunity for serving you today. You are stable for discharged . You are advised to: Follow-up with your PCP in 1 to 2 days and ask for referral to liver specialist regarding your chronic elevation of your total bilirubin rule out possible hepatocellular disease Return to ED for worsening of symptoms, right upper quadrant pain Increase oral fluids Print Language: Bel[place]ian Stand Alone Forms: Samantha Award Info., Patient Portal Info Letter PA/MERA Supervising Physician CHRIS/MERA Supervising Physician: MD Catina
[2025-06-22 16:40] VITALS: BP 164/102; PULSE 83; RESP 16; TEMP 36.9; O2SAT 95
[2025-06-22 16:49] LABS: Basophils # (Auto) 0.0 Thou/mm3 (0.0-0.2); Basophils % (Auto) 1 % (0-2.5); Eosinophils # (Auto) 0.1 Thou/mm3 (0.0-0.5); Eosinophils % (Auto) 1 % (0-10); Hematocrit 38.0 % (41.0-53.0); Hemoglobin 12.5 g/dL (13.5-16.0); Immature Granulocytes Auto 0.03 Thou/mm3 (0.00-0.00); Lymphocytes # (Auto) 1.4 Thou/mm3 (1.0-4.8); Lymphocytes % (Auto) 17 % (10-50); Mean Corpuscular HGB Conc 32.9 g/dl (31.0-37.0); Mean Corpuscular Hemoglobin 28.0 pg (25.0-35.0); Mean Corpuscular Volume 85 fL (80-100); Monocytes # (Auto) 0.6 Thou/mm3 (0.0-0.8); Monocytes % (Auto) 7 % (0-12); Neutrophils # (Auto) 5.9 Thou/mm3 (1.8-7.7); Neutrophils % (Auto) 73 % (37-80); Nucleated Red Blood Cell # 0.00 Thou/mm3 (0.00-0.00); Nucleated Red Blood Cell % 0 /100 WBC (0); Platelet Count 180 Thou/mm3 (140-440); RDW Standard Deviation 57.4 fL (35.1-43.9); Red Blood Count 4.47 Miln/mm3 (4.50-5.90); White Blood Count 8.0 Thou/mm3 (3.8-10.6)
[2025-06-22 17:04] LABS: INR 1.1 (0.9-1.3); Partial Thromboplastin Time 27.9 Seconds (22.0-36.0); Prothrombin Time 12.3 Seconds (9.0-12.2)
[2025-06-22 17:05] LABS: Alanine Aminotransferase 234 U/L (10-49); Albumin, Serum 4.2 gm/dL (3.4-4.8); Albumin/Globulin Ratio 1.6 (1.2-2.2); Alkaline Phosphatase 243 U/L (46-116); Anion Gap 11 (7-16); Aspartate Amino Transferase 141 U/L (0-34); BUN/Creatinine Ratio 14 Ratio (12-20); Bilirubin,Total 3.1 mg/dL (0.3-1.2); Blood Urea Nitrogen 19 mg/dL (9-23); Calcium 9.3 mg/dL (8.3-10.6); Calcium (Corrected) 9.3 mg/dL (8.5-10.1); Carbon Dioxide 30.5 mMol/L (20.0-31.0); Chloride 99 mMol/L (98-107); Creatinine (Component) 1.4 mg/dL (0.6-1.3); Estimated Creatinine Clearance 52.7 mL/min (>60); Globulin 2.6 gm/dL (2.3-3.5); Glucose 124 mg/dL (74-106); Osmolality,Calculated 282 (275-295); Potassium 3.5 mMol/L (3.4-5.1); Sodium 140 mMol/L (136-145); Total Protein 6.8 gm/dL (5.7-8.2); eGFR 52 See Note
[2025-06-22 18:26] VITALS: BP 164/98; PULSE 82; RESP 20; TEMP 36.6
[2025-06-22 19:55] VITALS: BP 155/100; PULSE 78; RESP 18; O2SAT 95
[2025-06-22 21:20] LABS: Collection Type, Urine Catheter; Squamous Epithelial Cell,Urine 0 /hpf (0-5); WBC,Urine 0 /hpf (0-5)
[2025-06-22 21:36] LABS: Bilirubin,Urine Negative (Negative); Blood,Urine 3+ (Negative); Clarity,Urine Turbid (Clear/Hazy); Culture Indicated,Urine Not Indicated; Glucose, Urine Negative (Negative); Ketones,Urine Negative (Negative); Leukocyte Esterase,Urine Positive (Negative); Nitrite,Urine Negative (Negative); PH,Urine 6.5 (5.0-7.0); Protein,Urine 2+ (Neg - Trace); RBC,Urine 2 /hpf (0-3); Specific Gravity,Urine 1.011 (1.001-1.035); Urobilinogen,Urine Negative mg/dL (0.0-1.0)
[2025-06-22 21:37] LABS: Color,Urine Drk Red (Lt Yel-Yel)
[2025-06-22 22:21] VITALS: BP 169/105; PULSE 73; RESP 18; O2SAT 84
[2025-06-22 23:30] VITALS: BP 175/107; PULSE 87; RESP 18; O2SAT 95
== END 2025-06-22 23:33 | disposition home or self-care (01) ==
PROVIDERS: Nurse Practitioner Family; Emergency Provider Emergency Medicine; PCP Internal Medicine
DX: T83.511A Infection and inflammatory reaction due to indwelling urethral catheter, initial encounter (principal); N39.0 Urinary tract infection, site not specified; R31.9 Hematuria, unspecified; R17 Unspecified jaundice; N40.1 Benign prostatic hyperplasia with lower urinary tract symptoms; R33.8 Other retention of urine; Y84.6 Urinary catheterization as the cause of abnormal reaction of the patient, or of later complication, without mention of misadventure at the time of the procedure
CPT/HCPCS: 51702; 36415; 80053; 81001; 85025; 85610; 85730; 99284; A4314

== ENCOUNTER → 2025-06-29 | Outpatient (BNVA) | payer OTHER, SELFPAY | END | disposition home or self-care (01) | PROVIDERS: PCP Internal Medicine; Referring Provider Internal Medicine; Visit Provider Urology | DX: N40.1 Benign prostatic hyperplasia with lower urinary tract symptoms (principal); R33.8 Other retention of urine; I10 Essential (primary) hypertension; I48.91 Unspecified atrial fibrillation; E11.9 Type 2 diabetes mellitus without complications | CPT/HCPCS: 76872 ==

== ENCOUNTER 2025-07-04 10:25 | Day surgery (SDC) | payer OTHER, SELFPAY ==
[2025-07-03 11:17] VITALS: BMI 35.9
[2025-07-03 13:21] LABS: Alanine Aminotransferase 23 U/L (10-49); Albumin, Serum 4.4 gm/dL (3.4-4.8); Albumin/Globulin Ratio 1.8 (1.2-2.2); Alkaline Phosphatase 128 U/L (46-116); Anion Gap 10 (7-16); Aspartate Amino Transferase 24 U/L (0-34); BUN/Creatinine Ratio 22 Ratio (12-20); Bilirubin,Total 1.2 mg/dL (0.3-1.2); Blood Urea Nitrogen 22 mg/dL (9-23); Calcium 9.6 mg/dL (8.3-10.6); Calcium (Corrected) 9.6 mg/dL (8.5-10.1); Carbon Dioxide 27.4 mMol/L (20.0-31.0); Chloride 102 mMol/L (98-107); Creatinine (Component) 1.0 mg/dL (0.6-1.3); Estimated Creatinine Clearance 70.0 mL/min (>60); Globulin 2.4 gm/dL (2.3-3.5); Glucose 140 mg/dL (74-106); Osmolality,Calculated 282 (275-295); Potassium 4.5 mMol/L (3.4-5.1); Sodium 139 mMol/L (136-145); Total Protein 6.8 gm/dL (5.7-8.2); eGFR > 60 See Note
--- NOTE | 2025-07-03 14:17 | SUR.PREOP ---
Cardiac history and EKG reviewed with Dr Ferguson.
--- NOTE | 2025-07-03 14:21 | SUR.PREOP ---
Addendum entered by Shelly Holley RN 07/03/25 14:22: pt to come in at 1030. Original Note: Voice message left for pt to come in tomorrow at 0830.
[2025-07-04] VITALS (7 sets, daily range): BP systolic 122–160; BP diastolic 74–99; PULSE 76–97; RESP 17–21; TEMP 36.2–36.6; O2SAT 95–100; BMI 34.8
--- NOTE | 2025-07-04 13:29 | XR_ITS ---
EXAMINATION: Fluoroscopy,. AP abdomen Date and time: July 04, 2025, 1446 hours INDICATIONS: History hematuria beginning March 2025, massive prostatomegaly mild bilateral hydronephrosis on CT abdomen/pelvis April 13, 2025 TECHNIQUE AND FINDINGS: Single spot film of the pelvis obtained Fluoroscopy 16.8 seconds radiation dose 6.68 mGy IMPRESSION: Fluoroscopy as above
--- NOTE | 2025-07-04 14:48 | SUR.PHASEI ---
pt received from OR in recovery bay 5. pt asleep but responds to voice, breathing unlabored on oxymask 8l. v/s stable. pt has moss cath in place. report received from Alberto DICKENS and Arlene CANCHOLA.
--- NOTE | 2025-07-04 15:04 | PD.SUROPNT ---
Date of Procedure 07/04/25 Pre Op Diagnosis Giant prostatomegaly, urinary retention, history of gross hematuria Post Op Diagnosis Same plus inflammatory polyps of bladder neck area elongated tortuous urethra, hypospadia Procedure Cystoscopic examination Findings Hypospadias tortuous elongated urethra giant prostate with the bilateral lobe obstructive median lobe inflammatory polyps and bladder neck area Procedure Description Indication for procedure this is a 75-year-old gentleman he has a urinary retention he had a placement of catheter he had gross hematuria he was on Eliquis. Once the Eliquis was stopped his urine became clear he had a CAT scan urogram done this revealed bilateral hydronephrosis as a result of urinary retention. He went to [facility] had a placement of 24 [place] Bustamante catheter. Patient was recommended cystoscopic examination procedure and complication were discussed with the patient in great detail informed consent is obtained Patient was brought to the operating room in a satisfactory condition after appropriate premedication was put on the operating table in a spine position he was appropriately identified by surgeon and operating room staff site scope and indications were reconfirmed with the patient informed consent is obtained general anesthesia was given uneventfully patient was positioned in the dorsolithotomy position parts were prepped and draped in the usual sterile fashion The patient received 160 mg Gentamicin IV pre-op prophylaxis. . Local anesthetic was placed into the urethra. Cystoscopy was then performed. The urethra had no intrinsic lesions up to the prostatic fossa. There was /trilobar] prostatic enlargement. Urethra was elongated and tortuous there were inflammatory polyps in the bladder neck area there was a lot of catheter reaction in the bladder examination of the bladder revealed no evidence of cancerous lesions, papillary or polyp type lesions except polyps in the bladder neck area or stones. Ureteral orifices visible because of inflammatory reaction and a large prostate gland/moderate/marked] . . The bladder was completely drained and the scope removed. #22 three-way Bustamante catheter was inserted balloon was inflated with 20 cc of water position of the catheter was confirmed with the fluoroscopic, the patient tolerated the procedure well. Post-op instructions were given. The patient is to call the office should any problems occur. Anesthesia GETA Pathology / specimen Other (Urine for cytology) Estimated Blood Loss 2 Condition Stable Disposition PACU Surgeon Kiley Walters MD Surgical Staff Operation Date: 07/04/25 12:45 Case Staff Anesthesiologist: Chris Garcia
--- NOTE | 2025-07-04 15:47 | SUR.PHASEII ---
pt awake and alert, breathing unlabored on room air. v/s stable. pt has moss cath in place. pt able to ambulate to wheelchair with steady gait. d/c instructions given with sister Janice in room, all questions answered. pt d/c via wheelchair with all belongings.
== END 2025-07-04 15:47 | disposition home or self-care (01) ==
PROVIDERS: Anesthesiology; PCP Internal Medicine; Referring Provider Urology; Visit Provider Urology
PROC: 0TJB8ZZ Inspection of Bladder, Via Natural or Artificial Opening Endoscopic (ICD-10-PCS; CPT 52000; principal; 2025-07-04 12:30)
DX: N40.1 Benign prostatic hyperplasia with lower urinary tract symptoms (principal); R33.8 Other retention of urine; D41.4 Neoplasm of uncertain behavior of bladder; N13.8 Other obstructive and reflux uropathy; Q54.9 Hypospadias, unspecified; N36.8 Other specified disorders of urethra
CPT/HCPCS: 52005; 36415; 74420; 80053; A4217; A4649; J1100; J1580; J2405; J2704; J3010; J3490

== ENCOUNTER → 2025-07-17 | Outpatient (BNVA) | payer OTHER, SELFPAY | END | disposition home or self-care (01) | PROVIDERS: PCP Internal Medicine; Referring Provider Internal Medicine; Visit Provider Urology | DX: N40.1 Benign prostatic hyperplasia with lower urinary tract symptoms (principal); R33.8 Other retention of urine; R31.0 Gross hematuria; I48.91 Unspecified atrial fibrillation; I10 Essential (primary) hypertension; E66.9 Obesity, unspecified; Z68.32 Body mass index [BMI] 32.0-32.9, adult | CPT/HCPCS: 99212; G0463 ==

== ENCOUNTER → 2025-08-17 | Outpatient (BNVA) | payer OTHER, SELFPAY | END | disposition home or self-care (01) | PROVIDERS: PCP Internal Medicine; Referring Provider Internal Medicine; Visit Provider Urology | DX: N40.1 Benign prostatic hyperplasia with lower urinary tract symptoms (principal); R33.8 Other retention of urine; R97.20 Elevated prostate specific antigen [PSA]; Z80.42 Family history of malignant neoplasm of prostate; I10 Essential (primary) hypertension | CPT/HCPCS: 99212; G0463 ==

== ENCOUNTER → 2025-08-27 | Outpatient (CLI) | payer OTHER, SELFPAY ==
[2025-08-28 13:14] LABS: Prostate Specific Antigen 2.46 ng/mL (0-4.00)
== END | disposition home or self-care (01) ==
LOC: COPL 15:05
PROVIDERS: PCP Internal Medicine; Referring Provider Urology; Visit Provider Urology
DX: R97.20 Elevated prostate specific antigen [PSA] (principal)
CPT/HCPCS: 36415; 84153